=== PATIENT | female | born 1950 | race Caucasian/White ===

== ENCOUNTER → 2017-12-21 | Outpatient (CLI) | payer MEDICARE ==
--- NOTE | 2017-12-21 14:26 | CT ---
EXAMINATION TYPE: CT abdomen pelvis wo con DATE OF EXAM: 12/21/2017 COMPARISON: NONE HISTORY: Intra abd pelvic swelling CT DLP: 2852 mGycm Automated exposure control for dose reduction was used. TECHNIQUE: Helical acquisition of images from the lung bases through the pelvis. FINDINGS: Lack of intravenous contrast could compromise sensitivity of the exam. Exam is limited by p atient body habitus. Increased attenuation in subcutaneous fat especially over the right hemiabdomen could be due to anasa rca or phlegmon, difficult to exclude cellulitis, correlate. LUNG BASES: There is a left pleural effusion and associated atelectasis. AORTA: No significant abnormality is appreciataed. LIVER/GB: No significant abnormality is appreciated. PANCREAS: No significant abnormality is seen. SPLEEN: No significant abnormality is seen. ADRENALS: Low dense left adrenal mass measures approximately 3.5 cm and likely represents adenoma, ri ght adrenal gland is unremarkable.. KIDNEYS: No significant abnormality is seen. REPRODUCTIVE ORGANS: No significant abnormality is seen. URINARY BLADDER: No significant abnormality is seen. BOWEL: No diverticular changes associated with the sigmoid colon, difficult to exclude a mucosal les ion.. FREE AIR: No Free Air is visible. ASCITES: Present adjacent to the liver. Small amount of free fluid in the pelvis. PELVIC ADENOPATHY: None visualized. RETROPERITONEAL ADENOPATHY: No Retroperitoneal Adenopathy visible. OSSEOUS STRUCTURES: Degenerative disc changes in the visualized spine. IMPRESSION: FINDINGS IN THE SUBCUTANEOUS FAT OVER THE ANTERIOR ABDOMINAL WALL IN THE RIGHT LOWER AND LATERAL ABDO MEN DESCRIBED. CORRELATE TO EXCLUDE INFECTION. ASCITES. NONCONTRAST EXAM MAY LIMIT THE EVALUATION. PROBABLE LEFT ADRENAL ADENOMA, LEFT LOWER LOBE ATELECTASIS VERSUS PNEUMONIA AND ASSOCIATED EFFUSION. Additional findings above.
== END | disposition home or self-care (01) ==
LOC: RADCTMAIN 11:20
PROVIDERS: ATTEND Family Medicine
DX: R18.8 Other ascites (principal); E27.8 Other specified disorders of adrenal gland; J44.1 Chronic obstructive pulmonary disease with (acute) exacerbation; I48.2 Chronic atrial fibrillation; D51.9 Vitamin B12 deficiency anemia, unspecified
CPT/HCPCS: 74176

== ENCOUNTER 2018-05-11 14:38 | Inpatient (IN) | payer MEDICARE ==
[2018-05-11] MEDS ORDERED: methylPREDNISolone SOD SUCCI 125 MG/2 ML VIAL IV STA (14:46)
[2018-05-11] MEDS ORDERED: IPRATROPIUM-ALBUTEROL 3 ML NEB INHALATION STA (14:46)
[2018-05-11] MEDS ORDERED: MAGNESIUM SULFATE-D5W PMX 1 GM in DEXTROSE/WATER 1 100ML.BAG IVPB STA (14:46)
[2018-05-11] MEDS ORDERED: FUROSEMIDE 10 MG/ML 4 ML VIAL IV STA (14:46)
[2018-05-11] MEDS ORDERED: SODIUM CHLORIDE 0.9% 1,000 ML IV STA (14:46)
[2018-05-11 15:19] LABS: Anisocytosis Slight; Basophils % (A) 0 %; Eosinophils % (A) 0 %; HCT 33.1 % (34.0-46.0); HGB 9.9 gm/dL (11.4-16.0); Hypochromasia Marked; Lymphocytes # (A) 0.9 k/uL (1.0-4.8); Lymphocytes % (A) 6 %; MCV 86.6 fL (80.0-100.0); Mean Platelet Volume 7.2; Monocytes # (A) 0.7 k/uL (0-1.0); Monocytes % (A) 5 %; Neutrophils # (A) 11.8 k/uL (1.3-7.7); Neutrophils % (A) 86 %; Platelet Count 498 k/uL (150-450); Poikilocytosis Slight; RBC 3.83 m/uL (3.80-5.40); RDW 18.9 % (11.5-15.5); WBC 13.7 k/uL (3.8-10.6)
[2018-05-11 15:25] LABS: Albumin 2.6 g/dL (3.5-5.0); Calcium 8.7 mg/dL (8.4-10.2); Magnesium 1.6 mg/dL (1.6-2.3); Potassium 3.8 mmol/L (3.5-5.1); Total Bilirubin 0.4 mg/dL (0.2-1.3); Total Protein 4.9 g/dL (6.3-8.2)
[2018-05-11 15:31] LABS: D-Dimer 0.57 mg/L FEU (<0.60); INR 1.2 (<1.2); Partial Thromboplastin Time 28.3 sec (22.0-30.0); Prothrombin Time 11.2 sec (9.0-12.0)
[2018-05-11 15:51] LABS: Creatine Kinase MB 1.2 ng/mL (0.0-2.4)
[2018-05-11 15:52] LABS: Troponin I 0.046 ng/mL (0.000-0.034)
--- NOTE | 2018-05-11 16:01 | XR ---
EXAMINATION TYPE: XR chest 1V portable DATE OF EXAM: 05/11/2018 Comparison: 05/11/2018 Clinical History: 67-year-old female with soreness of breath and Pain Findings: Heart mildly enlarged. [id number] left pleural effusion. Mild diffuse interstitial prominence. Possible trace right effusion. Impression: 1. Mild cardiomegaly and interstitial prominence. Correlate for CHF and mild pulmonary vascular conge stion. 2. Retsl-fz-dmaluaen left and trace right pleural effusions with adjacent atelectasis and/or consolid ation.
--- NOTE | 2018-05-11 16:47 | ED ---
SOB HPI - General Chief Complaint: Shortness of Breath Stated Complaint: YARIEL Time Seen by Provider: 05/11/18 14:38 Source: patient, EMS, RN notes reviewed Mode of arrival: EMS Limitations: no limitations - History of Present Illness Initial Comments: This is a 67-year-old female history of CHF COPD and stage III kidney disease who is brought in by EMS because of shortness of breath. She was evaluated today by a visiting nurse who was here to check on her legs she has some chronic wounds she was found to be very dyspneic which apparently is been going on all night and during the morning. No complaints of chest pain fevers chills nausea vomiting sweats. She was given DuoNeb and route with oxygen some improvement she was started on BiPAP which really didn't help her. He currently upon arrival was feeling somewhat improved the. MD Complaint: shortness of breath - Related Data Home Medications Medication Instructions Recorded Confirmed Acetaminophen [Tylenol Extra 1,000 mg PO Q6H PRN 05/11/18 05/11/18 Strength] Albuterol Inhaler [Ventolin Hfa 1 - 2 puff INHALATION RT-Q6H PRN 05/11/18 Inhaler] Albuterol Nebulized [Ventolin 1.25 mg INHALATION RT-DAILY PRN 05/11/18 05/11/18 Nebulized] Aspirin 325 mg PO DAILY 05/11/18 05/11/18 DULoxetine HCL [Cymbalta] 30 mg PO DAILY 05/11/18 05/11/18 Diclofenac Sodium [Voltaren Gel] 2 gram TOPICAL QID 05/11/18 05/11/18 Fidaxomicin [Dificid] 400 mg PO BID 05/11/18 05/11/18 Fluticasone Nasal [place] [Flonase 2 spr EA NOSTRIL DAILY 05/11/18 05/11/18 Nasal [place]] Fluticasone/Salmeterol [Advair 1 inhalation PO RT-BID 05/11/18 05/11/18 250-50 Diskus] Furosemide [Lasix] 40 mg PO BID 05/11/18 05/11/18 Gentamicin 0.1% Cream 1 applic TOPICAL TID 05/11/18 05/11/18 Ibuprofen [Motrin Ib] 400 mg PO Q6H PRN 05/11/18 05/11/18 Ipratropium Nebulized [Atrovent 0.5 mg INHALATION RT-QID 05/11/18 05/11/18 Nebulized] Metolazone [Zaroxolyn] 5 mg PO DAILY 05/11/18 05/11/18 Montelukast [Singulair] 10 mg PO DAILY 05/11/18 05/11/18 Ondansetron [Zofran] 4 mg PO Q8HR PRN 05/11/18 05/11/18 Spironolactone [Aldactone] 50 mg PO DAILY@1200 05/11/18 05/11/18 Sucralfate [Carafate] 1 gm PO QID 05/11/18 05/11/18 Umeclidinium Brm/Vilanterol Tr 1 puff INHALATION DAILY 05/11/18 05/11/18 [Anoro Ellipta 62.5-25 Mcg INH] guaiFENesin [Mucinex] 1,200 mg PO Q12HR 05/11/18 05/11/18 metFORMIN HCL [Glucophage] 500 mg PO DAILY 05/11/18 05/11/18 Allergies Allergy/AdvReac Type Severity Reaction Status Date / Time acetaminophen [From [place]] Allergy Unknown Verified 05/11/18 14:54 banana Allergy Unknown Verified 05/11/18 14:54 hydrocodone Allergy Unknown Verified 05/11/18 14:54 levofloxacin Allergy Unknown Verified 05/11/18 14:54 Penicillins Allergy Unknown Verified 05/11/18 14:54 tomato Allergy Unknown Verified 05/11/18 14:54 Review of Systems ROS Statement: Those systems with pertinent positive or pertinent negative responses have been documented in the HPI. ROS Other: All systems not noted in ROS Statement are negative. Past Medical History Past Medical History: Coronary Artery Disease (CAD), COPD, GERD/Reflux, Respiratory Disorder Additional Past Medical History / Comment(s): pressure ulcer. History of Any Multi-Drug Resistant Organisms: C-DIFF Date of last positivie culture/infection: 05/06/18 Past Surgical History: Appendectomy, Orthopedic Surgery Additional Past Surgical History / Comment(s): finger surgery Past Psychological History: Depression Smoking Status: Former smoker Past Alcohol Use History: None Reported Past Drug Use History: None Reported General Exam - General Exam Comments Initial Comments: This a well-developed well-nourished awake alert oriented 3 female she is on BiPAP currently. Limitations: no limitations General appearance: alert, in distress Head exam: Present: atraumatic, normocephalic, normal inspection Eye exam: Present: normal appearance, PERRL, EOMI. Absent: scleral icterus, conjunctival injection, periorbital swelling ENT exam: Present: normal exam, mucous membranes moist Neck exam: Present: normal inspection. Absent: tenderness, meningismus, lymphadenopathy Respiratory exam: Present: respiratory distress, wheezes, rales, accessory muscle use, decreased breath sounds. Absent: rhonchi, stridor Cardiovascular Exam: Present: tachycardia, irregular rhythm, normal heart sounds. Absent: systolic murmur, diastolic murmur, rubs, gallop, clicks GI/Abdominal exam: Present: soft, normal bowel sounds. Absent: distended, tenderness, guarding, rebound, rigid Extremities exam: Present: full ROM, normal capillary refill, other (Dressing applied with currently no evidence of pitting edema.). Absent: tenderness, pedal edema, joint swelling, calf tenderness Back exam: Present: normal inspection Neurological exam: Present: alert, oriented X3, CN II-XII intact Psychiatric exam: Present: normal affect, normal mood Skin exam: Present: warm, dry, other (Stasis dermatitis lower extremities was a very states healing bilateral decubitus ulcerations to both buttock.). Absent: rash Course Vital Signs 05/11/18 05/11/18 05/11/18 14:41 15:03 15:10 Temperature 97.9 F Pulse Rate 90 146 H 135 H Respiratory 28 H 16 Rate Blood Pressure 131/67 O2 Sat by Pulse 94 L 95 Oximetry 05/11/18 15:13 Temperature Pulse Rate 122 H Respiratory Rate Blood Pressure O2 Sat by Pulse Oximetry - Reevaluation(s) Reevaluation #1: 05/11/18 16:50 Reevaluation patient reveals she is feeling improved with the BiPAP I did discuss findings with patient's family and with the visiting nurse who was present. Medical Decision Making - Medical Decision Making Did discuss findings with the patient and family member and the visiting nurse was present patient does have rapid atrial fibrillation the heart rate is variable she also does demonstrate some evidence of decubitus ulceration on the buttock bilaterally. Chronic changes of the legs. CHF and renal insufficiency. Patient be admitted for evaluation by nephrology and cardiology. - Lab Data Result diagrams: 05/11/18 15:00 05/11/18 15:00 Lab Results 05/11/18 05/11/18 05/11/18 Range/Units 15:00 15:00 15:00 WBC 13.7 H (3.8-10.6) k/uL RBC 3.83 (3.80-5.40) m/uL Hgb 9.9 L (11.4-16.0) gm/dL Hct 33.1 L (34.0-46.0) % MCV 86.6 (80.0-100.0) fL MCH 26.0 (25.0-35.0) pg MCHC 30.0 L (31.0-37.0) g/dL RDW 18.9 H (11.5-15.5) % Plt Count 498 H (150-450) k/uL Neutrophils % 86 % Lymphocytes % 6 % Monocytes % 5 % Eosinophils % 0 % Basophils % 0 % Neutrophils # 11.8 H (1.3-7.7) k/uL Lymphocytes # 0.9 L (1.0-4.8) k/uL Monocytes # 0.7 (0-1.0) k/uL Eosinophils # 0.0 (0-0.7) k/uL Basophils # 0.0 (0-0.2) k/uL Hypochromasia Marked Poikilocytosis Slight Anisocytosis Slight PT (9.0-12.0) sec INR (<1.2) APTT (22.0-30.0) sec D-Dimer (<0.60) mg/L FEU Sodium 136 L (137-145) mmol/L Potassium 3.8 (3.5-5.1) mmol/L Chloride 90 L (98-107) mmol/L Carbon Dioxide 40 H* (22-30) mmol/L Anion Gap 6 mmol/L BUN 38 H (7-17) mg/dL Creatinine 1.70 H (0.52-1.04) mg/dL Est GFR (CKD-EPI)AfAm 36 (>60 ml/min/1.73 sqM) Est GFR (CKD-EPI)NonAf 31 (>60 ml/min/1.73 sqM) Glucose 114 H (74-99) mg/dL Plasma Lactic Acid Terence (0.7-2.0) mmol/L Calcium 8.7 (8.4-10.2) mg/dL Magnesium 1.6 (1.6-2.3) mg/dL Total Bilirubin 0.4 (0.2-1.3) mg/dL AST 16 (14-36) U/L ALT 30 (9-52) U/L Alkaline Phosphatase 128 H (38-126) U/L Total Creatine Kinase 40 (30-135) U/L CK-MB (CK-2) 1.2 (0.0-2.4) ng/mL CK-MB (CK-2) Rel Index 3.0 Troponin I 0.046 H* (0.000-0.034) ng/mL NT-Pro-B Natriuret Pep pg/mL Total Protein 4.9 L (6.3-8.2) g/dL Albumin 2.6 L (3.5-5.0) g/dL 05/11/18 05/11/18 05/11/18 Range/Units 15:00 15:00 15:00 WBC (3.8-10.6) k/uL RBC (3.80-5.40) m/uL Hgb (11.4-16.0) gm/dL Hct (34.0-46.0) % MCV (80.0-100.0) fL MCH (25.0-35.0) pg MCHC (31.0-37.0) g/dL RDW (11.5-15.5) % Plt Count (150-450) k/uL Neutrophils % % Lymphocytes % % Monocytes % % Eosinophils % % Basophils % % Neutrophils # (1.3-7.7) k/uL Lymphocytes # (1.0-4.8) k/uL Monocytes # (0-1.0) k/uL Eosinophils # (0-0.7) k/uL Basophils # (0-0.2) k/uL Hypochromasia Poikilocytosis Anisocytosis PT 11.2 (9.0-12.0) sec INR 1.2 H (<1.2) APTT 28.3 (22.0-30.0) sec D-Dimer 0.57 (<0.60) mg/L FEU Sodium (137-145) mmol/L Potassium (3.5-5.1) mmol/L Chloride (98-107) mmol/L Carbon Dioxide (22-30) mmol/L Anion Gap mmol/L BUN (7-17) mg/dL Creatinine (0.52-1.04) mg/dL Est GFR (CKD-EPI)AfAm (>60 ml/min/1.73 sqM) Est GFR (CKD-EPI)NonAf (>60 ml/min/1.73 sqM) Glucose (74-99) mg/dL Plasma Lactic Acid Terence 1.9 (0.7-2.0) mmol/L Calcium (8.4-10.2) mg/dL Magnesium (1.6-2.3) mg/dL Total Bilirubin (0.2-1.3) mg/dL AST (14-36) U/L ALT (9-52) U/L Alkaline Phosphatase (38-126) U/L Total Creatine Kinase (30-135) U/L CK-MB (CK-2) (0.0-2.4) ng/mL CK-MB (CK-2) Rel Index Troponin I (0.000-0.034) ng/mL NT-Pro-B Natriuret Pep 5490 pg/mL Total Protein (6.3-8.2) g/dL Albumin (3.5-5.0) g/dL - EKG Data -: EKG Interpreted by Me (Atrial fibrillation with a rapid ventricular response rate of 161 QRS 72 QT) - Radiology Data Radiology results: report reviewed (I did review the imaging and report or is evidence of congestive heart failure.), image reviewed Critical Care Time Critical Care Time: Yes Critical Care Time: 39 minutes of critical care time which includes monitoring EMS run and discussed with paramedics history physical labs x-rays several reevaluation the patient response to therapy discussion with family and friends. Discussed with the beta physician admission orders documentation the above. Disposition Clinical Impression: Congestive heart failure, Rapid atrial fibrillation, Chronic renal insufficiency, stage III (moderate), COPD (chronic obstructive pulmonary disease ), Adult respiratory distress syndrome Disposition: ADMITTED IP TO THIS [facility] Condition: Serious Referrals: Alec Germain MD [Primary Care Provider] - 1-2 days
[2018-05-11] MEDS ORDERED: IBUPROFEN 400 MG TAB PO PRN (16:58)
[2018-05-11] MEDS ORDERED: ONDANSETRON 4 MG TAB PO PRN (16:58)
[2018-05-11] MEDS ORDERED: ACETAMINOPHEN TAB 500 MG TAB PO PRN (16:58)
[2018-05-11] MEDS ORDERED: DILTIAZEM 50 MG in SODIUM CHLORIDE 0.9% 40 ML IV SCH (17:00)
[2018-05-11] MEDS ORDERED: HEPARIN SODIUM,PORCINE 5,000 UNIT/ML 1 ML VIAL IV ONE (17:01)
[2018-05-11] MEDS ORDERED: MIDAZOLAM 1 MG/ML 5 ML VIAL IV STA (17:17)
[2018-05-11] MEDS ORDERED: PROPOFOL 1,000 MG in EMPTY BAG 1 BAG IV ONE (17:17)
[2018-05-11] MEDS ORDERED: fentaNYL (PF) 50 MCG/ML 2 ML AMP IV STA (17:20)
[2018-05-11] MEDS: HEPARIN SOD,PORK IN 0.45% NACL 25,000 UNIT in 0.45% NACL 1 500ML.BAG IV SCH (17:22)
--- NOTE | 2018-05-11 17:36 | ED ---
Medical Decision Making - Medical Decision Making The patient continues to struggle with respiratory effort in spite of aggressive treatment and BiPAP. Patient will require intubation. I did discuss this with Dr. Myers also with the family members are present. Patient also does understand. The patient's blood pressure and heart rate did improve after intubation. She'll be admitted ICU. - Lab Data Result diagrams: 05/11/18 15:00 05/11/18 15:00 Lab Results 05/11/18 05/11/18 05/11/18 Range/Units 15:00 15:00 15:00 WBC 13.7 H (3.8-10.6) k/uL RBC 3.83 (3.80-5.40) m/uL Hgb 9.9 L (11.4-16.0) gm/dL Hct 33.1 L (34.0-46.0) % MCV 86.6 (80.0-100.0) fL MCH 26.0 (25.0-35.0) pg MCHC 30.0 L (31.0-37.0) g/dL RDW 18.9 H (11.5-15.5) % Plt Count 498 H (150-450) k/uL Neutrophils % 86 % Lymphocytes % 6 % Monocytes % 5 % Eosinophils % 0 % Basophils % 0 % Neutrophils # 11.8 H (1.3-7.7) k/uL Lymphocytes # 0.9 L (1.0-4.8) k/uL Monocytes # 0.7 (0-1.0) k/uL Eosinophils # 0.0 (0-0.7) k/uL Basophils # 0.0 (0-0.2) k/uL Hypochromasia Marked Poikilocytosis Slight Anisocytosis Slight PT (9.0-12.0) sec INR (<1.2) APTT (22.0-30.0) sec D-Dimer (<0.60) mg/L FEU Sodium 136 L (137-145) mmol/L Potassium 3.8 (3.5-5.1) mmol/L Chloride 90 L (98-107) mmol/L Carbon Dioxide 40 H* (22-30) mmol/L Anion Gap 6 mmol/L BUN 38 H (7-17) mg/dL Creatinine 1.70 H (0.52-1.04) mg/dL Est GFR (CKD-EPI)AfAm 36 (>60 ml/min/1.73 sqM) Est GFR (CKD-EPI)NonAf 31 (>60 ml/min/1.73 sqM) Glucose 114 H (74-99) mg/dL Plasma Lactic Acid Terence (0.7-2.0) mmol/L Calcium 8.7 (8.4-10.2) mg/dL Magnesium 1.6 (1.6-2.3) mg/dL Total Bilirubin 0.4 (0.2-1.3) mg/dL AST 16 (14-36) U/L ALT 30 (9-52) U/L Alkaline Phosphatase 128 H (38-126) U/L Total Creatine Kinase 40 (30-135) U/L CK-MB (CK-2) 1.2 (0.0-2.4) ng/mL CK-MB (CK-2) Rel Index 3.0 Troponin I 0.046 H* (0.000-0.034) ng/mL NT-Pro-B Natriuret Pep pg/mL Total Protein 4.9 L (6.3-8.2) g/dL Albumin 2.6 L (3.5-5.0) g/dL 05/11/18 05/11/18 05/11/18 Range/Units 15:00 15:00 15:00 WBC (3.8-10.6) k/uL RBC (3.80-5.40) m/uL Hgb (11.4-16.0) gm/dL Hct (34.0-46.0) % MCV (80.0-100.0) fL MCH (25.0-35.0) pg MCHC (31.0-37.0) g/dL RDW (11.5-15.5) % Plt Count (150-450) k/uL Neutrophils % % Lymphocytes % % Monocytes % % Eosinophils % % Basophils % % Neutrophils # (1.3-7.7) k/uL Lymphocytes # (1.0-4.8) k/uL Monocytes # (0-1.0) k/uL Eosinophils # (0-0.7) k/uL Basophils # (0-0.2) k/uL Hypochromasia Poikilocytosis Anisocytosis PT 11.2 (9.0-12.0) sec INR 1.2 H (<1.2) APTT 28.3 (22.0-30.0) sec D-Dimer 0.57 (<0.60) mg/L FEU Sodium (137-145) mmol/L Potassium (3.5-5.1) mmol/L Chloride (98-107) mmol/L Carbon Dioxide (22-30) mmol/L Anion Gap mmol/L BUN (7-17) mg/dL Creatinine (0.52-1.04) mg/dL Est GFR (CKD-EPI)AfAm (>60 ml/min/1.73 sqM) Est GFR (CKD-EPI)NonAf (>60 ml/min/1.73 sqM) Glucose (74-99) mg/dL Plasma Lactic Acid Terence 1.9 (0.7-2.0) mmol/L Calcium (8.4-10.2) mg/dL Magnesium (1.6-2.3) mg/dL Total Bilirubin (0.2-1.3) mg/dL AST (14-36) U/L ALT (9-52) U/L Alkaline Phosphatase (38-126) U/L Total Creatine Kinase (30-135) U/L CK-MB (CK-2) (0.0-2.4) ng/mL CK-MB (CK-2) Rel Index Troponin I (0.000-0.034) ng/mL NT-Pro-B Natriuret Pep 5490 pg/mL Total Protein (6.3-8.2) g/dL Albumin (3.5-5.0) g/dL - Radiology Data Radiology results: image reviewed (Review the imaging after the intubation shows the ET tube to be above the german in good position the OG tube is in the stomach.) Critical Care Time Critical Care Time: Yes Critical Care Time: Additional 23 minutes of critical care time not including the procedural sedation and intubation. Disposition Clinical Impression: Congestive heart failure, Rapid atrial fibrillation, Chronic renal insufficiency, stage III (moderate), COPD (chronic obstructive pulmonary disease ), Adult respiratory distress syndrome, Acute respiratory failure Disposition: ADMITTED IP TO THIS [facility] Condition: Serious Procedures - Intubation Time Out Performed: Yes Sedative: Propofol Mg Given: 100 Laryngoscope: Garg Size: 3 Assist Device Used: Bougie ET Tube Size: 7.5 ET Tube Uncuffed: No (Cuffed) Tube Secured Depth (cm): 23 Tube Placement Confirmation: visualized tube passing through cords, equal breath sounds bilaterally, no breath sounds over epigastrium, confirmation by capnometry Patient Tolerated Procedure: well Intubation Complications: none - Procedural Sedation Procedural Sedation Start Time: 17:49 Procedural Sedation Stop Time: 18:11 Indications: other ASA Class: III Mallampati Airway Score: 2 Preparation: radiographer cardiac catheterization applied, pulse oximeter, capnometry used, supplemental O2 applied, reversal agents at bedside, suction/airway equipment at bedside, IV secured Fentanyl: IV Fentanyl Dose: 50 Midazolam: IV Midazolam Dose: 5 IV Propofol Dose (mgs): 100 Complications: none (Procedural sedation used for oral tracheal intubation.)
[2018-05-11] MEDS: SODIUM CHLORIDE 0.9% 1,000 ML IV SCH (17:48)
[2018-05-11] MEDS ORDERED: SUCRALFATE 1 GM TAB PO SCH (18:00)
[2018-05-11] MEDS ORDERED: NITROGLYCERIN OINT 1 INCH/GM PACKET TOPICAL SCH (18:00)
[2018-05-11] MEDS ORDERED: DICLOFENAC SODIUM GEL 100 GM TUBE TOPICAL SCH (18:00)
--- NOTE | 2018-05-11 18:26 | XR ---
EXAMINATION: XR chest 1V portable DATE AND TIME: 05/11/2018 6:06 PM ORDERING PROVIDER: Steve Roberts CLINICAL INDICATION: pain TECHNIQUE: AP portable supine, rotated RPO COMPARISON: 05/11/2018 at 3:37 PM DESCRIPTION: Since the prior study patient has been intubated, ET tube tip is superimposed over the m id trachea at the level of the clavicular heads. Also new since the previous study is an NG tube placement, which can be seen coursing over the expect ed course of the thoracic esophagus and its tip is not visible, caudal to the inferior margin of the film. There is marked obscuration of the pulmonary vasculature by a fine reticular pattern of increased den sity consistent with advanced interstitial phase pulmonary edema, presumably cardiogenic etiology giv en the marked enlargement of the cardiac silhouette. Also, the left hemidiaphragm is silhouetted consistent with airlessness throughout the left lower lob e, with evidence of prominent left pleural effusion also noted. IMPRESSION: POSTINTUBATION CHEST X-RAY WITH FINDINGS DISCUSSED.
[2018-05-11 18:48] LABS: ABG Base Excess 15.6 mmol/L; ABG PH 7.36 (7.35-7.45); ABG PO2 395 mmHg (83-108); ABG TCO2 43 mmol/L (19-24)
[2018-05-11] MEDS ORDERED: NALOXONE 0.4 MG/ML 1 ML VIAL IV PRN (18:58)
[2018-05-11] MEDS: IPRATROPIUM-ALBUTEROL 3 ML NEB INHALATION SCH ×2 (19:11→23:27)
--- NOTE | 2018-05-11 19:39 | P.HPIM ---
History of Present Illness Chief Complaint: Shortness of breath CC 67-year-old female multiple medical problems including CKD stage III, type 2 diabetes mellitus, diastolic heart failure, COPD with chronic CO2 retention and 3 L home oxygen dependent and nocturnal BiPAP dependent at home, chronic atrial fibrillation on Eliquis was brought into emergency department due to respiratory distress. Patient is currently intubated and sedated and history was provided from her daughter Katherine at bedside. Per daughter patient has been having worsening shortness of breath for the last 2-3 weeks. There was some minimal dry cough but that was at her usual baseline. No fever or chills. She was having increased swelling in her legs and her abdomen and her diuretics were recently adjusted and that swelling has been improving since. There was no chest pain reported. Also do shortness of breath was worse with laying down. Shortness of breath was accompanied by increasing lethargy and loss of appetite. Patient Lasix was changed to 40 mg twice a day and initially patient would have an excellent urine output with DrChelsie with this but over the last few days she would not have much of the urine output with the Lasix. On the last 2-3 days patient became more lethargic and more short of breath and that distress was worsening and today finally decision was made to bring patient to emergency department. Initial workup showed chest x-ray with some congestive changes significantly elevated proBNP and slight elevation in troponin. Patient was initially given Solu-Medrol and Lasix but she developed A. fib with RVR with heart rate 160s upon which her respiratory status worsened and she had to be intubated in the emergency department. She was subsequently started on Cardizem drip and IV Lasix and heparin drip. Follow-up chest x-ray after intubation showed worsening pulmonary edema and small bilateral pleural effusions. 2 months prior to this admission patient was admitted at [facility] for congestive heart failure and COPD exacerbation and was subsequently discharged home. Patient had previous admissions to intensive care unit for respiratory problems but was never intubated. Last echocardiogram was from a few weeks ago and per daughter showed ejection fraction of 55% and some diastolic dysfunction he has no known history of coronary artery disease or cardiac interventions as per daughter's knowledge. Other recent and pertinent medical problems include loose and watery bowel movements for the last week and a half for which patient underwent trial of treatment for C. diff without any improvements and is subsequently started on Imodium but without improvement. Dr. describes bowel movements as brown sometimes loose sometimes watery couple times a day for the last 2 weeks. No mucus or blood or urgency or any abdominal pain nausea or vomiting described. Patient was not on any recent antibiotics as well otherwise to on that her doctor prescribed for C. diff. She is on metformin tho and that was just stop few days ago. Review of Systems ROS unobtainable: due to endotracheal tube, due to mental status Past Medical History Past Medical History: Coronary Artery Disease (CAD), COPD, GERD/Reflux, Respiratory Disorder Additional Past Medical History / Comment(s): pressure ulcer. History of Any Multi-Drug Resistant Organisms: C-DIFF Date of last positivie culture/infection: 05/06/18 Past Surgical History: Appendectomy, Orthopedic Surgery Additional Past Surgical History / Comment(s): finger surgery Past Psychological History: Depression Smoking Status: Former smoker Past Alcohol Use History: None Reported Past Drug Use History: None Reported Medications and Allergies Home Medications Medication Instructions Recorded Confirmed Type Acetaminophen [Tylenol Extra 1,000 mg PO Q6H PRN 05/11/18 05/11/18 History Strength] Albuterol Inhaler [Ventolin Hfa 1 - 2 puff INHALATION RT-Q6H PRN 05/11/18 History Inhaler] Albuterol Nebulized [Ventolin 1.25 mg INHALATION RT-DAILY PRN 05/11/18 05/11/18 History Nebulized] Aspirin 325 mg PO DAILY 05/11/18 05/11/18 History DULoxetine HCL [Cymbalta] 30 mg PO DAILY 05/11/18 05/11/18 History Diclofenac Sodium [Voltaren Gel] 2 gram TOPICAL QID 05/11/18 05/11/18 History Fidaxomicin [Dificid] 400 mg PO BID 05/11/18 05/11/18 History Fluticasone Nasal [place] [Flonase 2 spr EA NOSTRIL DAILY 05/11/18 05/11/18 History Nasal [place]] Fluticasone/Salmeterol [Advair 1 inhalation PO RT-BID 05/11/18 05/11/18 History 250-50 Diskus] Furosemide [Lasix] 40 mg PO BID 05/11/18 05/11/18 History Gentamicin 0.1% Cream 1 applic TOPICAL TID 05/11/18 05/11/18 History Ibuprofen [Motrin Ib] 400 mg PO Q6H PRN 05/11/18 05/11/18 History Ipratropium Nebulized [Atrovent 0.5 mg INHALATION RT-QID 05/11/18 05/11/18 History Nebulized] Metolazone [Zaroxolyn] 5 mg PO DAILY 05/11/18 05/11/18 History Montelukast [Singulair] 10 mg PO DAILY 05/11/18 05/11/18 History Ondansetron [Zofran] 4 mg PO Q8HR PRN 05/11/18 05/11/18 History Spironolactone [Aldactone] 50 mg PO DAILY@1200 05/11/18 05/11/18 History Sucralfate [Carafate] 1 gm PO QID 05/11/18 05/11/18 History Umeclidinium Brm/Vilanterol Tr 1 puff INHALATION DAILY 05/11/18 05/11/18 History [Anoro Ellipta 62.5-25 Mcg INH] guaiFENesin [Mucinex] 1,200 mg PO Q12HR 05/11/18 05/11/18 History metFORMIN HCL [Glucophage] 500 mg PO DAILY 05/11/18 05/11/18 History Allergies Allergy/AdvReac Type Severity Reaction Status Date / Time acetaminophen [From [place]] Allergy Unknown Verified 05/11/18 14:54 banana Allergy Unknown Verified 05/11/18 14:54 hydrocodone Allergy Unknown Verified 05/11/18 14:54 levofloxacin Allergy Unknown Verified 05/11/18 14:54 Penicillins Allergy Unknown Verified 05/11/18 14:54 tomato Allergy Unknown Verified 05/11/18 14:54 Physical Exam Vitals: Vital Signs Temp Pulse Resp BP Pulse Ox 05/11/18 18:51 139 H 14 124/88 99 05/11/18 18:05 137 H 14 125/85 99 05/11/18 17:00 131 H 20 110/56 94 L 05/11/18 16:00 132 H 18 123/53 93 L 05/11/18 15:13 122 H 05/11/18 15:10 135 H 16 131/67 95 05/11/18 15:03 146 H 05/11/18 14:41 97.9 F 90 28 H 94 L Intake and Output 05/11/18 05/11/18 05/11/18 06:59 14:59 22:59 Output Total 100 Balance -100 Output: Urine 100 Uretheral (Hernandez) 100 Other: Weight 102.058 kg Gen.: Patient is intubated and sedated and unresponsive to light touch or nociceptive stimuli Head and neck: No facial asymmetry, pupils are round reactive to light bilaterally, eyes are in midline, sclerae are anicteric, she has very short thick neck and any Vanos pulsations cannot be appreciated Cardiovascular: Tachycardic irregularly irregular S1-S2 Respiratory: Breath sounds are diminished throughout and no wheezing or rhonchi appreciated Abdomen: Obese slightly distended skin with some swelling and peau d orange appearance in dependent areas with some erythema but no warmth or drainage Extremities: Trace pedal edema, there are some scabs and small wounds without any erythema or drainage Musculoskeletal: No clubbing or warm joints Neuro: No facial asymmetry. Pupils are round and reactive to midline DTRs are diminished in patellar bilaterally there is no clonus Results CBC & Chem 7: 05/11/18 15:00 05/11/18 15:00 Labs: Abnormal Lab Results - Last 24 Hours (Table) 05/11/18 05/11/18 05/11/18 Range/Units 15:00 15:00 15:00 WBC 13.7 H (3.8-10.6) k/uL Hgb 9.9 L (11.4-16.0) gm/dL Hct 33.1 L (34.0-46.0) % MCHC 30.0 L (31.0-37.0) g/dL RDW 18.9 H (11.5-15.5) % Plt Count 498 H (150-450) k/uL Neutrophils # 11.8 H (1.3-7.7) k/uL Lymphocytes # 0.9 L (1.0-4.8) k/uL INR (<1.2) Sodium 136 L (137-145) mmol/L Chloride 90 L (98-107) mmol/L Carbon Dioxide 40 H* (22-30) mmol/L BUN 38 H (7-17) mg/dL Creatinine 1.70 H (0.52-1.04) mg/dL Glucose 114 H (74-99) mg/dL Alkaline Phosphatase 128 H (38-126) U/L Troponin I 0.046 H* (0.000-0.034) ng/mL Total Protein 4.9 L (6.3-8.2) g/dL Albumin 2.6 L (3.5-5.0) g/dL 05/11/18 Range/Units 15:00 WBC (3.8-10.6) k/uL Hgb (11.4-16.0) gm/dL Hct (34.0-46.0) % MCHC (31.0-37.0) g/dL RDW (11.5-15.5) % Plt Count (150-450) k/uL Neutrophils # (1.3-7.7) k/uL Lymphocytes # (1.0-4.8) k/uL INR 1.2 H (<1.2) Sodium (137-145) mmol/L Chloride (98-107) mmol/L Carbon Dioxide (22-30) mmol/L BUN (7-17) mg/dL Creatinine (0.52-1.04) mg/dL Glucose (74-99) mg/dL Alkaline Phosphatase (38-126) U/L Troponin I (0.000-0.034) ng/mL Total Protein (6.3-8.2) g/dL Albumin (3.5-5.0) g/dL Chest x-ray: report reviewed, image reviewed Thrombosis Risk Factor Assmnt - DVT/VTE Prophylaxis DVT/VTE Prophylaxis: Pharmacologic Prophylaxis ordered Assessment and Plan Plan: 1. Acute on chronic hypoxic respiratory failure, clinically due to pulmonary edema due to combination of acute diastolic CHF exacerbation and fluid redistribution in the background of chronic renal insufficiency with A. fib with RVR with obstructive lung disease, obesity hypoventilation and chronic hypercarbic respiratory failure; status post endotracheal intubation Admitted to ICU with ventilatory bundle and pulmonary consult Evaluate for etiology of cardiac decompensation with ischemic workup and also control of A. fib with RVR Cardiology and nephrology consulted Continue diuresis for now Obtain stat ABG to evaluate pH given the very elevated bicarb trend troponin septic work up 2. A. fib with RVR Acute on chronic Last known EF 55% Cardizem drip started in the emergency department with better with heart rate improving Cardiology consulted Patient has been on Eliquis currently started on heparin drip emergency department we will keep with this for now Cardiology consulted Check TSH 3. Chronic hypercarbic respiratory failure BiPAP dependent due to COPD and obesity hypoventilation syndrome with history of smoking ABG currently pending Vent settings will be adjusted based on the results 4. CK be stage III per history Unknown creatinine baseline Nephrology consulted to assist with this problem and diuresis We'll obtain old records from the previous hospitalization Patient is a full code Current surrogate decision maker is her daughter hope Expected 2 or more midnights stay 90 minutes total time spent on this admission intubating the family examined the patient and reviewing the chart and coordinating the care Time with Patient: Greater than 30
[2018-05-11] MEDS ORDERED: NON-FORMULARY DRUG (Fluticasone/Salmeterol [Advair 250-50 Diskus] 1 INHALATION) PO SCH (20:00)
[2018-05-11] MEDS: PANTOPRAZOLE 40 MG/10 ML VIAL IV SCH (20:20)
[2018-05-11] MEDS: INSULIN ASPART 100 UNIT/ML 1 ML 10 ML VIAL SQ SCH ×2 (20:21→20:55)
[2018-05-11 20:33] LABS: Amorphous Sediment,Urine Occasional /hpf; Appearance,Urine Cloudy (Clear); Bilirubin,Urine Negative (Negative); Blood,Urine Negative (Negative); Color,Urine Yellow; Glucose,Urine (UA) Negative (Negative); Hyaline Casts,Urine 102 /lpf (0-2); Ketones,Urine Negative (Negative); Leukocyte Esterase,Urine Trace (Negative); Mucus,Urine Rare /hpf; Nitrite,Urine Negative (Negative); Protein,Urine 1+ (Negative); RBC,Urine 4 /hpf (0-5); Specific Gravity,Urine 1.015 (1.001-1.035); Squamous Epithelial Cell,Urine 4 /hpf (0-4); Urobilinogen,Urine <2.0 mg/dL (<2.0); WBC,Urine 1 /hpf (0-5)
[2018-05-11 20:41] LABS: Glucose,Whole Blood 99 mg/dL (75-99)
[2018-05-11] MEDS ORDERED: guaiFENesin 600 MG TABLET.ER PO SCH (21:00)
[2018-05-11] MEDS ORDERED: FUROSEMIDE 20 MG TAB PO SCH (21:00)
[2018-05-11 21:01] LABS: ABG PCO2 73 mmHg (35-45)
[2018-05-11 21:02] LABS: ABG HCO3 41 mmol/L (21-25)
[2018-05-11] MEDS ORDERED: METOPROLOL TARTRATE 25 MG TAB PO SCH (22:00)
[2018-05-11] MEDS: GENTAMICIN 0.1% CREAM 15 GM TUBE TOPICAL SCH (23:04)
[2018-05-11] MEDS: FUROSEMIDE 10 MG/ML 4 ML VIAL IV SCH (23:11)
[2018-05-11 23:57] LABS: Amorphous Sediment,Urine Rare /hpf; Appearance,Urine Cloudy (Clear); Bacteria,Urine Rare /hpf; Bilirubin,Urine Negative (Negative); Blood,Urine Negative (Negative); Color,Urine Yellow; Glucose,Urine (UA) Negative (Negative); Hyaline Casts,Urine 49 /lpf (0-2); Ketones,Urine Negative (Negative); Leukocyte Esterase,Urine Large (Negative); Mucus,Urine Rare /hpf; Nitrite,Urine Negative (Negative); Protein,Urine Negative (Negative); RBC,Urine 2 /hpf (0-5); Specific Gravity,Urine 1.012 (1.001-1.035); Squamous Epithelial Cell,Urine <1 /hpf (0-4); Urobilinogen,Urine <2.0 mg/dL (<2.0); WBC,Urine 33 /hpf (0-5)
[2018-05-12 00:27] LABS: Glucose,Whole Blood 124 mg/dL (75-99)
[2018-05-12] MEDS: PROPOFOL 1,000 MG in EMPTY BAG 1 BAG IV SCH ×5 (00:35→23:34)
[2018-05-12] MEDS: DILTIAZEM 50 MG in SODIUM CHLORIDE 0.9% 40 ML IV SCH ×2 (02:36→11:00)
[2018-05-12] MEDS ORDERED: NOREPINEPHRINE 4 MG in DEXTROSE 5% IN WATER 250 ML IV SCH ×2 (03:15)
[2018-05-12] MEDS: IPRATROPIUM-ALBUTEROL 3 ML NEB INHALATION SCH ×6 (03:15→23:16)
[2018-05-12 03:50] LABS: Anisocytosis Slight; Basophils % (A) 0 %; Eosinophils % (A) 0 %; HCT 27.8 % (34.0-46.0); Hypochromasia Marked; Lymphocytes # (A) 0.5 k/uL (1.0-4.8); Lymphocytes % (A) 5 %; MCH 25.9 pg (25.0-35.0); MCHC 30.2 g/dL (31.0-37.0); MCV 85.9 fL (80.0-100.0); Mean Platelet Volume 7.5; Monocytes # (A) 0.2 k/uL (0-1.0); Monocytes % (A) 2 %; Neutrophils # (A) 9.4 k/uL (1.3-7.7); Neutrophils % (A) 93 %; Platelet Count 407 k/uL (150-450); RBC 3.24 m/uL (3.80-5.40); RDW 18.8 % (11.5-15.5); WBC 10.1 k/uL (3.8-10.6)
[2018-05-12 04:02] LABS: HGB 8.4 gm/dL (11.4-16.0)
[2018-05-12 04:03] LABS: Calcium 8.1 mg/dL (8.4-10.2); Magnesium 1.8 mg/dL (1.6-2.3); Phosphorus 5.9 mg/dL (2.5-4.5); Potassium 3.8 mmol/L (3.5-5.1)
[2018-05-12 06:10] LABS: Glucose,Whole Blood 152 mg/dL (75-99)
[2018-05-12] MEDS: INSULIN ASPART 100 UNIT/ML 1 ML 10 ML VIAL SQ SCH ×4 (06:10→21:44)
[2018-05-12] MEDS ORDERED: Potassium Replacement Protocol 1 EACH MISC MISCELLANE PRN (06:12)
[2018-05-12] MEDS ORDERED: Magnesium Replacement Protocol 1 EACH MISC MISCELLANE PRN (06:12)
[2018-05-12] MEDS: MAGNESIUM SULFATE-D5W PMX 1 GM in DEXTROSE/WATER 1 100ML.BAG IVPB SCH ×2 (06:57→12:58)
[2018-05-12] MEDS ORDERED: POTASSIUM BICARBONATE/CIT AC 20 MEQ TABLET.EFF NG-TUBE SCH (07:00)
[2018-05-12] MEDS ORDERED: metFORMIN 500 MG TAB PO SCH (07:30)
--- NOTE | 2018-05-12 07:54 | XR ---
EXAMINATION TYPE: XR chest 1V portable DATE OF EXAM: 05/12/2018 CLINICAL HISTORY: Difficulty breathing progress study. TECHNIQUE: Single AP portable upright view of the chest is obtained. COMPARISON: Chest x-rays from one day earlier FINDINGS: There is stable appearance of of endotracheal and orogastric tubes. There is persistent cardiomegaly with tiny right pleural effusion and small to moderate-sized left pl eural effusion. There is background of chronic emphysematous change with parenchymal scarring. Interv al improvement in central vascular congestion. There is no new suspicious focal airspace opacity or p neumothorax seen bilaterally. Degenerative change right glenohumeral joint is redemonstrated. IMPRESSION: Chronic parenchymal change and cardiomegaly with small to moderate-sized left pleural eff usion all redemonstrated without significant interval change. Interval improvement in central vascula r congestion and interstitial edema noted.
[2018-05-12] MEDS ORDERED: METOLAZONE 5 MG TAB PO SCH (09:00)
[2018-05-12] MEDS ORDERED: DULoxetine HCL 30 MG CAPSULE.DR PO SCH (09:00)
[2018-05-12] MEDS ORDERED: FLUTICASONE 50MCG/SPRAY NASAL 16GM EA NOSTRIL SCH (09:00)
[2018-05-12] MEDS ORDERED: NON-FORMULARY DRUG (Umeclidinium Brm/Vilanterol Tr [Anoro Ellipta 62.5-25 Mcg Inh] 1 PUFF) INHALATION SCH (09:00)
[2018-05-12] MEDS ORDERED: MONTELUKAST 10 MG TAB PO SCH (09:00)
[2018-05-12 09:35] LABS: ABG Base Excess 16.1 mmol/L; ABG Oxygen Saturation 99.1 % (94-97); ABG PCO2 60 mmHg (35-45); ABG PH 7.43 (7.35-7.45); ABG PO2 109 mmHg (83-108); ABG TCO2 42 mmol/L (19-24)
[2018-05-12 09:37] LABS: ABG HCO3 40 mmol/L (21-25)
[2018-05-12] MEDS ORDERED: SODIUM CHLORIDE 0.9% 1,000 ML IV ONE (10:47)
[2018-05-12] MEDS ORDERED: SPIRONOLACTONE 25 MG TAB PO SCH (12:00)
--- NOTE | 2018-05-12 12:03 | ECHOF ---
Referral Reason:respiratory failure MEASUREMENTS -------- HEIGHT: 165.1 cm WEIGHT: 104.8 kg BP: 100/81 RVIDd: 3.5 cm (< 3.3) IVSd: 1.4 cm (0.6 - 1.1) LVIDd: 4.6 cm (3.9 - 5.3) LVPWd: 1.1 cm (0.6 - 1.1) IVSs: 1.9 cm LVIDs: 3.4 cm LVPWs: 1.6 cm LA Diam: 3.6 cm (2.7 - 3.8) LAESV Index (A-L): 52.34 ml/m Ao Diam: 3.2 cm (2.0 - 3.7) AV Cusp: 2.1 cm (1.5 - 2.6) MV EXCURSION: 9.957 mm (> 18.000) MV EF SLOPE: 77 mm/s (70 - 150) EPSS: 1.0 cm AV maxP.99 mmHg AV meanP.60 mmHg RAP: 15.00 mmHg RVSP: 49.21 mmHg FINDINGS -------- Atrial fibrillation. This was a technically adequate study. The left ventricular size is normal. There is moderate concentric left ventricular hypertrophy. O verall left ventricular systolic function is moderate-severely impaired with, an EF between 30 - 35 % . The right ventricle is mildly enlarged. The global wall thickness of the right ventricle is moderat craig enlarged. LA is severely dilated >40 ml/m2 The right atrium is normal in size. There is mild aortic valve sclerosis. The mitral valve leaflets are mildly thickened. Mild mitral annular calcification present. Mild m itral regurgitation is present. Bsmk-[id number]-cjfqfnjj tricuspid regurgitation present. There is moderate pulmonary hypertension. The r ight ventricular systolic pressure, as measured by Doppler, is 49.21mmHg. The pulmonic valve was not well visualized. The aortic root size is normal. The inferior vena cava is dilated with no significant inspiratory collapse which is consistent estima bibi right atrial pressure of >15 mmHg. There is no pericardial effusion. CONCLUSIONS -------- 1. Atrial fibrillation. 2. This was a technically adequate study. 3. The left ventricular size is normal. 4. There is moderate concentric left ventricular hypertrophy. 5. Overall left ventricular systolic function is moderate-severely impaired with, an EF between 30 - 35 %. 6. The right ventricle is mildly enlarged. 7. The global wall thickness of the right ventricle is moderately enlarged. 8. LA is severely dilated >40 ml/m2 9. The right atrium is normal in size. 10. There is mild aortic valve sclerosis. 11. The mitral valve leaflets are mildly thickened. 12. Mild mitral annular calcification present. 13. Mild mitral regurgitation is present. 14. Jlmu-ga-[id number] tricuspid regurgitation present. 15. There is moderate pulmonary hypertension. 16. The right ventricular systolic pressure, as measured by Doppler, is 49.21mmHg. 17. The pulmonic valve was not well visualized. 18. The aortic root size is normal. 19. The inferior vena cava is dilated with no significant inspiratory collapse which is consistent es timated right atrial pressure of >15 mmHg. 20. There is no pericardial effusion. SQL CONSULTANT: Martha Trevizo RDCS
[2018-05-12 12:12] LABS: Glucose,Whole Blood 137 mg/dL (75-99)
--- NOTE | 2018-05-12 12:43 | XR ---
EXAMINATION TYPE: XR chest 1V portable DATE OF EXAM: 05/12/2018 Comparison: 05/12/2018, earlier today Clinical History: 67 year-old female right subclavian triple lumen placement Findings: The heart remains mildly enlarged. Diffuse interstitial prominence. Continued blunted left costophren ic angle and retrocardiac opacity. Right subclavian CVC tip extends into the right atrium. NG tube co urses below the diaphragm. ET tube is satisfactory. Diffuse interstitial prominence, stable to slight ly increased. Impression: 1. Right subclavian CVC tip in the right atrium. 2. Cardiomegaly and slight increase in interstitial changes. Correlate for pulmonary vascular congest ion. 3. A small to moderate left pleural effusion with adjacent atelectasis and/or consolidation also slig htly increased.
[2018-05-12] MEDS ORDERED: DEXTROSE 5% IN WATER 100 ML with AMIODARONE 150 MG IV ONE (13:07)
[2018-05-12] MEDS: CHLORHEXIDINE GLUCONATE 15 ML CUP MUCOUS MEM SCH ×2 (13:10→21:39)
[2018-05-12] MEDS: ASPIRIN 325 MG TAB PO SCH (13:12)
[2018-05-12] MEDS: PANTOPRAZOLE 40 MG/10 ML VIAL IV SCH (13:12)
[2018-05-12] MEDS: GENTAMICIN 0.1% CREAM 15 GM TUBE TOPICAL SCH ×3 (13:12→21:39)
--- NOTE | 2018-05-12 13:16 | CONS ---
CONSULTATION Mrs. Ayers is a 67-year-old female, who is seen for cardiac evaluation. The patient is currently intubated and the history is mostly obtained from the chart. This patient has a known history of congestive heart failure, COPD and chronic kidney disease. The patient was evaluated yesterday by visiting nurses for the chronic wounds. Patient was found to be quite short of breath and this had been going on from the night before and in the morning. Patient did not complain of any chest pain, chills or nausea. Patient was given and BiPAP, but that did not really help her and subsequently patient was brought to the emergency room. In the emergency room, patient initially improved with BiPAP but subsequently patient's respiratory conditions deteriorated and the patient ended up being intubated. Patient also was found to be in atrial fibrillation with rapid rate. Patient currently remains intubated. PATIENT'S HOME MEDICATIONS: Included albuterol inhaler, Cymbalta, Voltaren gel, Flonase, Lasix 40 mg b.i.d., Zaroxolyn once a day, Zofran, Aldactone 50 mg daily, Carafate, Mucinex and Glucophage. REVIEW OF THE SYSTEM: Otherwise unremarkable. PAST MEDICAL HISTORY: Includes a history of COPD, history of respiratory disorders, congestive heart failure, atrial fibrillation and coronary artery disease. History of appendectomy and orthopedic surgeries. SOCIAL HISTORY: Patient is a former smoker. PHYSICAL EXAMINATION: At present reveals a 67-year-old, obese female who is currently intubated. Patient's blood pressure is running low in the range of 90-100. HEENT examination is negative. Neck is supple. Jugular venous pressure is difficult to assess. Heart, first and second heart sounds are heard. Lung examination reveals bilateral scattered rhonchi. Abdomen is soft. Extremities, there is a trace leg edema. Chest x-ray suggestive of congestive cardiac failure. EKG shows evidence of atrial fibrillation. Patient's hemoglobin is 8.4. Initial blood gases showed pH of 7.36, pCO2 was 73, PO2 was 395. The blood gases this morning show a pH of 7.43, pCO2 is 63. Electrolytes are normal. Patient's bicarb is 40. Patient 2 sets of troponins are 0.049, 0.047. BNP level was 5,490. Echocardiogram shows evidence of global hypokinesia with estimated ejection fraction of 30%-35%. Right ventricular systolic pressure is a 49 mmHg. IVC is dilated and does not collapse very well suggestive right atrial pressure of 15. FINAL IMPRESSION: This patient is admitted with acute respiratory failure secondary to a combination of acute exacerbation of underlying COPD. Cor pulmonale and acute left-sided acute pulmonary edema. Patient's echocardiogram reveals a moderate to severely impaired left ventricular systolic functions with elevated right atrial pressure. Patient currently is in atrial fibrillation with a rate of 110-120. RECOMMENDATIONS: We will discontinue the Cardizem in view of the impaired LV function and we will start the patient on amiodarone drip. Patient's urine output remains quite poor. In view of that, we will start the patient on Lasix drip. If there is no significant improvement in the urine output, we can consider starting the patient either on dobutamine or a small dose of dopamine. Patient's overall condition remains poor. SHAWANDA / OSITON: [id number] /
[2018-05-12] MEDS: FUROSEMIDE 250 MG in SODIUM CHLORIDE 0.9% 225 ML IVP SCH (13:39)
[2018-05-12] MEDS: AMIODARONE 450 MG in DEXTROSE 5% IN WATER 250 ML IV SCH ×6 (13:39→22:15)
[2018-05-12] MEDS: NOREPINEPHRINE 16 MG in DEXTROSE 5% IN WATER 250 ML IV SCH ×2 (13:40)
[2018-05-12] MEDS ORDERED: VANCOMYCIN IV PER PHARMACY 1 EACH MISC MISCELLANE PRN (13:43)
--- NOTE | 2018-05-12 13:55 | P.CNPUL ---
History of Present Illness Consult date: 05/12/18 Requesting physician: Krissy Mon Reason for consult: other (Acute respiratory failure requiring intubation and mechanical ventilation.) Chief complaint: Shortness of breath History of present illness: This is a 67-year-old female with history of multiple medical problems including chronic hypercapnic respiratory failure, obstructive sleep apnea syndrome, COPD, patient is on home oxygen at 3 L, she is also on BiPAP and seems to be nocturnally BiPAP dependent. Patient is also known to have history of chronic atrial fibrillation, chronic decubitus ulcers, superficial leg ulcers , patient has a visiting nurse taking care of her ulcers and chronic wounds. She was noted by the visiting nurse to be dyspneic, for at least 24 hours prior to presentation. Patient has been using oxygen at home, BiPAP, and she is also on updrafts in the form of DuoNeb. Considering the patient was not noticing significant improvement, patient was advised to come to the ER. Upon arrival to the ER, patient was noted to be quite dyspneic, and did not improve much with BiPAP. Hence she was intubated by Dr. Steve Roberts, placed on mechanical ventilation, admitted to the ICU and this consult was initiated. Presently the patient is on the following ventilator settings tidal volume of 400 assist control rate of 18 FiO2 of 50% and PEEP of 5. She is in atrial fibrillation with RVR, placed on amiodarone to replace Cardizem as per cardiology. Her echocardiogram showed severe ventricular dysfunction ejection fraction of 30-35% . Hence the patient was placed on Lasix drip. Chest x-ray did show evidence of pulmonary edema. Echocardiogram also showed evidence of moderate pulmonary hypertension with a right-sided pressures in the range of 50. Patient was recently diagnosed as having C. difficile colitis, and has been on deficid on outpatient basis. ABG this morning showed a pO2 of 109 pCO2 of 60 pH of 7.43, hence I cut down the FiO2 to 45%. And I kept the same ventilator settings are unchanged. Renal functioning was noted to be abnormal creatinine is 1.90 BUN is 39 however the patient is known to have history of chronic kidney disease stage III. ProBNP level was noted to be elevated over 5500. Troponin was borderline elevated. Urine showed pyuria and bacteriuria suggestive of urinary tract infection. Patient was empirically placed on aztreonam and vancomycin. Infectious disease consultation was also initiated. Review of Systems ROS unobtainable: due to endotracheal tube Past Medical History Past Medical History: Atrial Fibrillation, Coronary Artery Disease (CAD), Heart Failure, COPD, GERD/Reflux, Respiratory Disorder Additional Past Medical History / Comment(s): Chronic Afib, CKD stage III recently diagnosed, NIDDM type II, chronic CO2 retainer, chronic respiratory failure with home O2 at 3L/NC during day and bipap at night, severe GERD, recent diarrhea (past 2 weeks and other family members with diarrhea), current lower extremity cellulitis, current bilateral hip decubitus recently increased to stage II, EF in April 2018 55%, HTN and was on med briefly but did not tolerate even low dose without going hypotensive, anemia, chronic pain- DDD/( sciatica in past), R shoulder/upper arm pain, back pain, bilateral knee pain and recent neck pain, wheelchair bound mostly-able to take couple steps but past 5 days has been bedbound. History of Any Multi-Drug Resistant Organisms: None Reported Date of last positivie culture/infection: 05/06/18 Past Surgical History: Appendectomy, Orthopedic Surgery, Tonsillectomy Additional Past Surgical History / Comment(s): finger surgery d/t chainsaw accident (unknown which finger) Past Anesthesia/Blood Transfusion Reactions: No Reported Reaction Smoking Status: Former smoker - Past Family History Mother Family Medical History: Cancer, CVA/TIA, GI Bleed, Hypertension Additional Family Medical History / Comment(s): Upper GI bleed/ulcers. Father History Unknown: Yes Additional Family Medical History / Comment(s): Father just before pt was born in an employment accident. Medications and Allergies Home Medications Medication Instructions Recorded Confirmed Type Acetaminophen [Tylenol Extra 1,000 mg PO Q6H PRN 05/11/18 05/11/18 History Strength] Albuterol Inhaler [Ventolin Hfa 1 - 2 puff INHALATION RT-Q6H PRN 05/11/18 History Inhaler] Albuterol Nebulized [Ventolin 1.25 mg INHALATION RT-DAILY PRN 05/11/18 05/11/18 History Nebulized] Aspirin 325 mg PO DAILY 05/11/18 05/11/18 History DULoxetine HCL [Cymbalta] 30 mg PO DAILY 05/11/18 05/11/18 History Diclofenac Sodium [Voltaren Gel] 2 gram TOPICAL QID 05/11/18 05/11/18 History Fidaxomicin [Dificid] 400 mg PO BID 05/11/18 05/11/18 History Fluticasone Nasal [place] [Flonase 2 spr EA NOSTRIL DAILY 05/11/18 05/11/18 History Nasal [place]] Fluticasone/Salmeterol [Advair 1 inhalation PO RT-BID 05/11/18 05/11/18 History 250-50 Diskus] Furosemide [Lasix] 40 mg PO BID 05/11/18 05/11/18 History Gentamicin 0.1% Cream 1 applic TOPICAL TID 05/11/18 05/11/18 History Ibuprofen [Motrin Ib] 400 mg PO Q6H PRN 05/11/18 05/11/18 History Ipratropium Nebulized [Atrovent 0.5 mg INHALATION RT-QID 05/11/18 05/11/18 History Nebulized] Metolazone [Zaroxolyn] 5 mg PO DAILY 05/11/18 05/11/18 History Montelukast [Singulair] 10 mg PO DAILY 05/11/18 05/11/18 History Ondansetron [Zofran] 4 mg PO Q8HR PRN 05/11/18 05/11/18 History Spironolactone [Aldactone] 50 mg PO DAILY@1200 05/11/18 05/11/18 History Sucralfate [Carafate] 1 gm PO QID 05/11/18 05/11/18 History Umeclidinium Brm/Vilanterol Tr 1 puff INHALATION DAILY 05/11/18 05/11/18 History [Anoro Ellipta 62.5-25 Mcg INH] guaiFENesin [Mucinex] 1,200 mg PO Q12HR 05/11/18 05/11/18 History metFORMIN HCL [Glucophage] 500 mg PO DAILY 05/11/18 05/11/18 History Allergies Allergy/AdvReac Type Severity Reaction Status Date / Time acetaminophen [From [facility]] Allergy Unknown Verified 05/11/18 14:54 banana Allergy Unknown Verified 05/11/18 14:54 hydrocodone Allergy Unknown Verified 05/11/18 14:54 levofloxacin Allergy Unknown Verified 05/11/18 14:54 Penicillins Allergy Unknown Verified 05/11/18 14:54 tomato Allergy Unknown Verified 05/11/18 14:54 Physical Exam Vitals: Vital Signs Temp Pulse Resp BP Pulse Ox 05/12/18 13:00 122 H 17 92/65 99 05/12/18 12:30 128 H 17 95/59 98 05/12/18 12:00 98.5 F 102 H 18 93/67 99 05/12/18 11:47 100 18 05/12/18 11:31 119 H 18 05/12/18 11:30 127 H 20 116/64 99 05/12/18 11:00 142 H 31 H 116/71 99 05/12/18 10:30 120 H 17 70/63 100 05/12/18 10:00 104 H 18 82/57 100 05/12/18 09:30 113 H 18 91/61 100 05/12/18 09:00 114 H 18 87/65 100 05/12/18 08:30 107 H 93/53 100 05/12/18 08:00 98.9 F 103 H 73/53 100 05/12/18 07:55 94 18 05/12/18 07:45 96 18 05/12/18 07:30 122 H 82/59 100 05/12/18 07:00 102 H 18 85/55 100 05/12/18 06:30 104 H 18 73/55 100 05/12/18 06:00 114 H 18 82/46 100 05/12/18 05:30 101 H 18 100/81 100 05/12/18 05:00 115 H 18 106/72 100 05/12/18 04:30 99 18 112/70 100 05/12/18 04:00 98 F 109 H 18 100/70 100 05/12/18 03:30 103 H 18 81/68 100 05/12/18 03:24 96 05/12/18 03:18 89 05/12/18 03:00 92 19 78/54 100 05/12/18 02:30 87 18 77/53 100 05/12/18 02:00 104 H 18 81/57 100 05/12/18 01:30 120 H 18 88/61 100 05/12/18 01:00 114 H 18 86/60 100 05/12/18 00:30 98 18 82/62 100 05/12/18 00:00 98.6 F 116 H 18 81/59 100 05/11/18 23:36 128 H 05/11/18 23:30 125 H 103/64 100 05/11/18 23:28 114 H 05/11/18 23:00 108 H 18 94/70 100 05/11/18 22:30 133 H 18 78/52 100 05/11/18 22:00 126 H 18 79/55 100 05/11/18 21:30 134 H 18 96/54 100 05/11/18 21:00 98.8 F 136 H 18 85/69 100 05/11/18 19:50 123 H 16 116/56 99 05/11/18 19:26 130 H 05/11/18 19:13 98.0 F 130 H 18 109/68 05/11/18 19:12 145 H 05/11/18 18:51 139 H 14 124/88 99 05/11/18 18:05 137 H 14 125/85 99 05/11/18 17:00 131 H 20 110/56 94 L 05/11/18 16:00 132 H 18 123/53 93 L 05/11/18 15:13 122 H 05/11/18 15:10 135 H 16 131/67 95 05/11/18 15:03 146 H 05/11/18 14:41 97.9 F 90 28 H 94 L Intake and Output 05/11/18 05/12/18 05/12/18 22:59 06:59 14:59 Intake Total 180.835 801.073 3116.292 Output Total 460 140 67 Balance -279.165 213.215 8235.292 Intake: IV 40 160 1140 0.9 NACL bolus 1000 Sodium Chloride 0.9% 1, 40 160 140 000 ml @ 20 mls/hr IV . Q24H [facility] Rx#:[id number] Intake, IV Titration 140.835 208.271 403.292 Amount Diltiazem 50 mg In Sodium 50 Chloride 0.9% 40 ml @ 5 MG/HR 5 mls/hr IV .Q10H [facility] Rx#:[id number] Heparin Sod,Pork in 0.45% 111 116.216 87.667 NaCl 25,000 unit In 0.45 % NaCl 1 500ml.bag @ 9.8 UNITS/KG/HR 20 mls/hr IV .Q24H [facility] Rx#:[id number] Norepinephrine 4 mg In 165.625 Dextrose 5% in Water 250 ml @ Titrate IV .Q0M [facility] Rx#:[id number] Propofol 1,000 mg In 29.835 Empty Bag 1 bag @ Titrate IV .Q0M [facility] Rx#: [id number] Propofol 1,000 mg In 92.055 100.000 Empty Bag 1 bag @ Titrate IV .Q0M [facility] Rx#: [id number] Output: Urine 460 140 67 Uretheral (Hernandez) 100 Other: Voiding Method Indwelling Catheter Weight 105 kg 105 kg ABP, PAP, CO, CI - Last 8 Hours Arterial Blood Pressure 100/57 Arterial Blood Pressure 105/63 Arterial Blood Pressure 99/64 Physical Exam: Revealed a 67-year-old female, morbidly obese, on mechanical ventilation, sedated, on propofol. Head: Atraumatic, normocephalic. HEENT: Obese neck [Neck is supple.] [No neck masses.] [No thyromegaly.] [No JVD. ] Chest: [Crackles at the bases, symmetrical expansion, no chest wall tenderness.] Cardiac Exam: [Irregular irregular rhythm, distant S1 and S2, no S3 gallop, no murmur.] Abdomen: [Obese, Soft, nontender, no megaly, no rebound, no guarding, normal bowel sounds.] Extremities: [Trace of bipedal edema, minimal superficial scabs and lacerations noted without any drainage noted in lower extremities. According to the nurse patient had also 3 stage III decubitus ulcers] Neurological Exam: Cannot be assessed, patient is fully sedated, on propofol, on mechanical ventilation. Psychiatric: Could not be assessed, on mechanical ventilation. Lymphatics: No lymphadenopathy. Results - Laboratory Findings CBC and BMP: 05/12/18 03:06 05/12/18 03:06 ABG ABG pH 7.43 (7.35-7.45) 05/12/18 09:33 ABG pCO2 60 mmHg (35-45) H 05/12/18 09:33 ABG pO2 109 mmHg (83-108) H 05/12/18 09:33 ABG O2 Saturation 99.1 % (94-97) H 05/12/18 09:33 PT/INR, D-dimer PT 11.2 sec (9.0-12.0) 05/11/18 15:00 INR 1.2 (<1.2) H 05/11/18 15:00 D-Dimer 0.57 mg/L FEU (<0.60) 05/11/18 15:00 Abnormal lab findings: Abnormal Labs 05/11/18 05/11/18 05/11/18 15:00 15:00 15:00 WBC 13.7 H RBC Hgb 9.9 L Hct 33.1 L MCHC 30.0 L RDW 18.9 H Plt Count 498 H Neutrophils # 11.8 H Lymphocytes # 0.9 L INR APTT ABG pCO2 ABG pO2 ABG HCO3 ABG Total CO2 ABG O2 Saturation Sodium 136 L Chloride 90 L Carbon Dioxide 40 H* BUN 38 H Creatinine 1.70 H Glucose 114 H POC Glucose (mg/dL) Calcium Phosphorus Alkaline Phosphatase 128 H Troponin I 0.046 H* Total Protein 4.9 L Albumin 2.6 L Urine Appearance Urine Protein Ur Leukocyte Esterase Urine WBC Amorphous Sediment Urine Bacteria Hyaline Casts Urine Mucus 05/11/18 05/11/18 05/11/18 15:00 18:44 19:56 WBC RBC Hgb Hct MCHC RDW Plt Count Neutrophils # Lymphocytes # INR 1.2 H APTT ABG pCO2 73 H* ABG pO2 395 H ABG HCO3 41 H* ABG Total CO2 43 H ABG O2 Saturation 100.0 H Sodium Chloride Carbon Dioxide BUN Creatinine Glucose POC Glucose (mg/dL) Calcium Phosphorus Alkaline Phosphatase Troponin I Total Protein Albumin Urine Appearance Cloudy H Urine Protein 1+ H Ur Leukocyte Esterase Trace H Urine WBC Amorphous Sediment Occasional H Urine Bacteria Hyaline Casts 102 H Urine Mucus Rare H 05/11/18 05/11/18 05/11/18 22:44 22:44 23:45 WBC RBC Hgb Hct MCHC RDW Plt Count Neutrophils # Lymphocytes # INR APTT 81.6 H ABG pCO2 ABG pO2 ABG HCO3 ABG Total CO2 ABG O2 Saturation Sodium Chloride Carbon Dioxide BUN Creatinine Glucose POC Glucose (mg/dL) Calcium Phosphorus Alkaline Phosphatase Troponin I 0.049 H* Total Protein Albumin Urine Appearance Cloudy H Urine Protein Ur Leukocyte Esterase Large H Urine WBC 33 H Amorphous Sediment Rare H Urine Bacteria Rare H Hyaline Casts 49 H Urine Mucus Rare H 05/12/18 05/12/18 05/12/18 00:25 03:06 03:06 WBC RBC 3.24 L Hgb 8.4 L D Hct 27.8 L MCHC 30.2 L RDW 18.8 H Plt Count Neutrophils # 9.4 H Lymphocytes # 0.5 L INR APTT ABG pCO2 ABG pO2 ABG HCO3 ABG Total CO2 ABG O2 Saturation Sodium 134 L Chloride 92 L Carbon Dioxide 36 H BUN 39 H Creatinine 1.90 H Glucose 123 H POC Glucose (mg/dL) 124 H Calcium 8.1 L Phosphorus 5.9 H Alkaline Phosphatase Troponin I Total Protein Albumin Urine Appearance Urine Protein Ur Leukocyte Esterase Urine WBC Amorphous Sediment Urine Bacteria Hyaline Casts Urine Mucus 05/12/18 05/12/18 05/12/18 03:06 05:27 06:08 WBC RBC Hgb Hct MCHC RDW Plt Count Neutrophils # Lymphocytes # INR APTT 43.7 H ABG pCO2 ABG pO2 ABG HCO3 ABG Total CO2 ABG O2 Saturation Sodium Chloride Carbon Dioxide BUN Creatinine Glucose POC Glucose (mg/dL) 152 H Calcium Phosphorus Alkaline Phosphatase Troponin I 0.047 H* Total Protein Albumin Urine Appearance Urine Protein Ur Leukocyte Esterase Urine WBC Amorphous Sediment Urine Bacteria Hyaline Casts Urine Mucus 05/12/18 05/12/18 09:33 12:09 WBC RBC Hgb Hct MCHC RDW Plt Count Neutrophils # Lymphocytes # INR APTT ABG pCO2 60 H ABG pO2 109 H ABG HCO3 40 H* ABG Total CO2 42 H ABG O2 Saturation 99.1 H Sodium Chloride Carbon Dioxide BUN Creatinine Glucose POC Glucose (mg/dL) 137 H Calcium Phosphorus Alkaline Phosphatase Troponin I Total Protein Albumin Urine Appearance Urine Protein Ur Leukocyte Esterase Urine WBC Amorphous Sediment Urine Bacteria Hyaline Casts Urine Mucus - Diagnostic Findings Chest x-ray: image reviewed (Cardiomegaly and interstitial prominence bilaterally consistent with pulmonary vascular congestion/pulmonary edema small left pleural effusion is suspected with atelectasis, right subclavian central line noted.) Assessment and Plan Assessment: Impression: 1 acute on chronic hypoxic and hypercapnic respiratory failure secondary to acute systolic congestive heart failure and underlying COPD with acute exacerbation of COPD. 2 atrial fibrillation with RVR, patient is presently on amiodarone, did not improve much with Cardizem, patient was on Eliquis on outpatient basis, presently on heparin drip. 3 acute hypotension, multifactorial secondary to severe LV dysfunction, atrial fibrillation, RVR, and possibly some component of sepsis. This is yet to be determined. 4 possible sepsis, and septic shock requiring norepinephrine. likely sources would be urine or skin/decubitus ulcers. Hence the patient was empirically placed on aztreonam and vancomycin. 5 acute on chronic kidney disease stage III per history. 6 chronic hypercapnic respiratory failure and chronic hypoxic respiratory failure secondary to COPD. 7 chronic decubitus and skin ulcers. Recommendation: Continue mechanical ventilation, GI and DVT prophylaxis, empiric antibiotics until cultures become available, amiodarone for atrial fibrillation, norepinephrine for hypotension and this should be titrated to a mean arterial pressure of 65. Nephrology, cardiology, and infectious disease consultations were initiated. Prognosis is definitely poor and guarded, patient is critically ill. Lines were placed including a right subclavian central line and a right femoral arterial line. Continue Lasix drip for congestive heart failure. We will discuss her condition with family once they are available at bedside. Time with Patient: Greater than 30
[2018-05-12] MEDS ORDERED: VANCOMYCIN 1,750 MG in SODIUM CHLORIDE 0.9% 500 ML IVPB ONE (14:30)
[2018-05-12] MEDS: FUROSEMIDE 10 MG/ML 4 ML VIAL IV SCH (14:57)
--- NOTE | 2018-05-12 15:05 | CDI ---
Last Revision, September 2017 Documentation Clarification Form Date: 05/12/18 From: Sonia Parnell RN Admit Date: 05/11/2018 4:55:00 PM Patient Name: Shirley Ayers Visit Number: [id number] ATTENTION: The Clinical Documentation Specialists (CDI) and [facility] Coding Staff appreciate your assistance in clarifying documentation. Please respond to the clarification below the line at the bottom and electronically sign. The CDI & [facility] Coding staff will review the response and follow-up if needed. Please note: Queries are made part of the Legal Health Record. If you have any questions, please contact the author of this message via ITS. Dr. Suhail Ruiz MD, Can you please render your opinion on the following? Patient presented with SOB. Admitted with acute on chronic hypoxic respiratory failure due to pulmonary edema, acute diastolic chf exacerbation, requiring intubation. History/Risk Factors: CKD 3, DM 2 CHF, COPD, 3L HOME O2, chronic a fib,, c diff , x smoker Clinical Indicators: Vital Signs on admission 97.9, P 90, R 28, 94% BIPAP WBC on admission: 13.7 Urinalysis on admission: cloudy, +1 protein, trace leukocyte esterase, occasional Amorphous Sediment, Hyaline casts 102, Mucus rare, urine bacteria rare Urine Culture: in progress Consult on 05/12 states urine showed pyuria and bacteriuria suggestive of urinary tract infection. Treatment: Antibiotics: Aztreonam IVPB, Vanco IVPB Please document the condition that these clinical indicators signify, whether Present on Admission, and cause if known: UTI ruled in UTI ruled out With Sepsis If due to catheter, device or implant, please document Specify organism, if known Other, please specify Unable to determine Present on Admission: Yes No Please continue to document in your progress notes, under the line below and/or in the discharge summary in order to capture severity of illness and risk of mortality. Include clinical findings that support your diagnosis. MTDD
--- NOTE | 2018-05-12 15:07 | P.PN ---
Subjective Patient remains intubated. Under sedation but responsive. She remained in a fib with RVR over night and BP became low with sedation and cardizem drip. Echo showed EF 30-35%, worsening from before. She has had few loose BM. daughter infromed me of previous diarrhea for at least 2 weeks and that the patient finished course of Dificid,without improvement. Objective - Vital Signs Vital signs: Vital Signs Temp 98.5 F 05/12/18 12:00 Pulse 122 H 05/12/18 13:00 Resp 17 05/12/18 13:00 BP 92/65 05/12/18 13:00 Pulse Ox 99 05/12/18 13:00 Intake & Output 05/11/18 05/12/18 05/12/18 18:59 06:59 18:59 Intake Total 209.094 1604.292 Output Total 100 500 67 Balance -100 49.106 1476.292 Weight 102.058 kg 105 kg 105 kg Intake: IV 200 1140 0.9 NACL bolus 1000 Sodium Chloride 0.9% 1, 200 140 000 ml @ 20 mls/hr IV . Q24H [facility] Rx#:[id number] Intake, IV Titration 349.106 403.292 Amount Diltiazem 50 mg In Sodium 50 Chloride 0.9% 40 ml @ 5 MG/HR 5 mls/hr IV .Q10H [facility] Rx#:[id number] Heparin Sod,Pork in 0.45% 227.216 87.667 NaCl 25,000 unit In 0.45 % NaCl 1 500ml.bag @ 9.8 UNITS/KG/HR 20 mls/hr IV .Q24H [facility] Rx#:[id number] Norepinephrine 4 mg In 165.625 Dextrose 5% in Water 250 ml @ Titrate IV .Q0M [facility] Rx#:[id number] Propofol 1,000 mg In 29.835 Empty Bag 1 bag @ Titrate IV .Q0M ONE Rx#: [id number] Propofol 1,000 mg In 92.055 100.000 Empty Bag 1 bag @ Titrate IV .Q0M [facility] Rx#: [id number] Output: Urine 100 500 67 Uretheral (Hernandez) 100 Other: Voiding Method Indwelling Catheter ABP, PAP, CO, CI - Last Documented Arterial Blood Pressure 100/57 - Exam Intubated sedated - EENT Eyes: Present: PERRLA - Respiratory Respiratory: bilateral: diminished - Cardiovascular Rhythm: irregularly irregular Heart sounds: normal: S1, S2 - Gastrointestinal General gastrointestinal: Present: normal bowel sounds, soft. Absent: tenderness - Integumentary Integumentary: Absent: cellulitis, cyanotic, pale - Labs CBC & Chem 7: 05/12/18 03:06 05/12/18 03:06 Labs: Abnormal Lab Results - Last 24 Hours (Table) 05/11/18 05/11/18 05/11/18 Range/Units 15:00 15:00 15:00 WBC 13.7 H (3.8-10.6) k/uL RBC (3.80-5.40) m/uL Hgb 9.9 L (11.4-16.0) gm/dL Hct 33.1 L (34.0-46.0) % MCHC 30.0 L (31.0-37.0) g/dL RDW 18.9 H (11.5-15.5) % Plt Count 498 H (150-450) k/uL Neutrophils # 11.8 H (1.3-7.7) k/uL Lymphocytes # 0.9 L (1.0-4.8) k/uL INR (<1.2) APTT (22.0-30.0) sec ABG pCO2 (35-45) mmHg ABG pO2 (83-108) mmHg ABG HCO3 (21-25) mmol/L ABG Total CO2 (19-24) mmol/L ABG O2 Saturation (94-97) % Sodium 136 L (137-145) mmol/L Chloride 90 L (98-107) mmol/L Carbon Dioxide 40 H* (22-30) mmol/L BUN 38 H (7-17) mg/dL Creatinine 1.70 H (0.52-1.04) mg/dL Glucose 114 H (74-99) mg/dL POC Glucose (mg/dL) (75-99) mg/dL Calcium (8.4-10.2) mg/dL Phosphorus (2.5-4.5) mg/dL Alkaline Phosphatase 128 H (38-126) U/L Troponin I 0.046 H* (0.000-0.034) ng/mL Total Protein 4.9 L (6.3-8.2) g/dL Albumin 2.6 L (3.5-5.0) g/dL Urine Appearance (Clear) Urine Protein (Negative) Ur Leukocyte Esterase (Negative) Urine WBC (0-5) /hpf Amorphous Sediment (None) /hpf Urine Bacteria (None) /hpf Hyaline Casts (0-2) /lpf Urine Mucus (None) /hpf 05/11/18 05/11/18 05/11/18 Range/Units 15:00 18:44 19:56 WBC (3.8-10.6) k/uL RBC (3.80-5.40) m/uL Hgb (11.4-16.0) gm/dL Hct (34.0-46.0) % MCHC (31.0-37.0) g/dL RDW (11.5-15.5) % Plt Count (150-450) k/uL Neutrophils # (1.3-7.7) k/uL Lymphocytes # (1.0-4.8) k/uL INR 1.2 H (<1.2) APTT (22.0-30.0) sec ABG pCO2 73 H* (35-45) mmHg ABG pO2 395 H (83-108) mmHg ABG HCO3 41 H* (21-25) mmol/L ABG Total CO2 43 H (19-24) mmol/L ABG O2 Saturation 100.0 H (94-97) % Sodium (137-145) mmol/L Chloride (98-107) mmol/L Carbon Dioxide (22-30) mmol/L BUN (7-17) mg/dL Creatinine (0.52-1.04) mg/dL Glucose (74-99) mg/dL POC Glucose (mg/dL) (75-99) mg/dL Calcium (8.4-10.2) mg/dL Phosphorus (2.5-4.5) mg/dL Alkaline Phosphatase (38-126) U/L Troponin I (0.000-0.034) ng/mL Total Protein (6.3-8.2) g/dL Albumin (3.5-5.0) g/dL Urine Appearance Cloudy H (Clear) Urine Protein 1+ H (Negative) Ur Leukocyte Esterase Trace H (Negative) Urine WBC (0-5) /hpf Amorphous Sediment Occasional H (None) /hpf Urine Bacteria (None) /hpf Hyaline Casts 102 H (0-2) /lpf Urine Mucus Rare H (None) /hpf 05/11/18 05/11/18 05/11/18 Range/Units 22:44 22:44 23:45 WBC (3.8-10.6) k/uL RBC (3.80-5.40) m/uL Hgb (11.4-16.0) gm/dL Hct (34.0-46.0) % MCHC (31.0-37.0) g/dL RDW (11.5-15.5) % Plt Count (150-450) k/uL Neutrophils # (1.3-7.7) k/uL Lymphocytes # (1.0-4.8) k/uL INR (<1.2) APTT 81.6 H (22.0-30.0) sec ABG pCO2 (35-45) mmHg ABG pO2 (83-108) mmHg ABG HCO3 (21-25) mmol/L ABG Total CO2 (19-24) mmol/L ABG O2 Saturation (94-97) % Sodium (137-145) mmol/L Chloride (98-107) mmol/L Carbon Dioxide (22-30) mmol/L BUN (7-17) mg/dL Creatinine (0.52-1.04) mg/dL Glucose (74-99) mg/dL POC Glucose (mg/dL) (75-99) mg/dL Calcium (8.4-10.2) mg/dL Phosphorus (2.5-4.5) mg/dL Alkaline Phosphatase (38-126) U/L Troponin I 0.049 H* (0.000-0.034) ng/mL Total Protein (6.3-8.2) g/dL Albumin (3.5-5.0) g/dL Urine Appearance Cloudy H (Clear) Urine Protein (Negative) Ur Leukocyte Esterase Large H (Negative) Urine WBC 33 H (0-5) /hpf Amorphous Sediment Rare H (None) /hpf Urine Bacteria Rare H (None) /hpf Hyaline Casts 49 H (0-2) /lpf Urine Mucus Rare H (None) /hpf 05/12/18 05/12/18 05/12/18 Range/Units 00:25 03:06 03:06 WBC (3.8-10.6) k/uL RBC 3.24 L (3.80-5.40) m/uL Hgb 8.4 L D (11.4-16.0) gm/dL Hct 27.8 L (34.0-46.0) % MCHC 30.2 L (31.0-37.0) g/dL RDW 18.8 H (11.5-15.5) % Plt Count (150-450) k/uL Neutrophils # 9.4 H (1.3-7.7) k/uL Lymphocytes # 0.5 L (1.0-4.8) k/uL INR (<1.2) APTT (22.0-30.0) sec ABG pCO2 (35-45) mmHg ABG pO2 (83-108) mmHg ABG HCO3 (21-25) mmol/L ABG Total CO2 (19-24) mmol/L ABG O2 Saturation (94-97) % Sodium 134 L (137-145) mmol/L Chloride 92 L (98-107) mmol/L Carbon Dioxide 36 H (22-30) mmol/L BUN 39 H (7-17) mg/dL Creatinine 1.90 H (0.52-1.04) mg/dL Glucose 123 H (74-99) mg/dL POC Glucose (mg/dL) 124 H (75-99) mg/dL Calcium 8.1 L (8.4-10.2) mg/dL Phosphorus 5.9 H (2.5-4.5) mg/dL Alkaline Phosphatase (38-126) U/L Troponin I (0.000-0.034) ng/mL Total Protein (6.3-8.2) g/dL Albumin (3.5-5.0) g/dL Urine Appearance (Clear) Urine Protein (Negative) Ur Leukocyte Esterase (Negative) Urine WBC (0-5) /hpf Amorphous Sediment (None) /hpf Urine Bacteria (None) /hpf Hyaline Casts (0-2) /lpf Urine Mucus (None) /hpf 05/12/18 05/12/18 05/12/18 Range/Units 03:06 05:27 06:08 WBC (3.8-10.6) k/uL RBC (3.80-5.40) m/uL Hgb (11.4-16.0) gm/dL Hct (34.0-46.0) % MCHC (31.0-37.0) g/dL RDW (11.5-15.5) % Plt Count (150-450) k/uL Neutrophils # (1.3-7.7) k/uL Lymphocytes # (1.0-4.8) k/uL INR (<1.2) APTT 43.7 H (22.0-30.0) sec ABG pCO2 (35-45) mmHg ABG pO2 (83-108) mmHg ABG HCO3 (21-25) mmol/L ABG Total CO2 (19-24) mmol/L ABG O2 Saturation (94-97) % Sodium (137-145) mmol/L Chloride (98-107) mmol/L Carbon Dioxide (22-30) mmol/L BUN (7-17) mg/dL Creatinine (0.52-1.04) mg/dL Glucose (74-99) mg/dL POC Glucose (mg/dL) 152 H (75-99) mg/dL Calcium (8.4-10.2) mg/dL Phosphorus (2.5-4.5) mg/dL Alkaline Phosphatase (38-126) U/L Troponin I 0.047 H* (0.000-0.034) ng/mL Total Protein (6.3-8.2) g/dL Albumin (3.5-5.0) g/dL Urine Appearance (Clear) Urine Protein (Negative) Ur Leukocyte Esterase (Negative) Urine WBC (0-5) /hpf Amorphous Sediment (None) /hpf Urine Bacteria (None) /hpf Hyaline Casts (0-2) /lpf Urine Mucus (None) /hpf 05/12/18 05/12/18 Range/Units 09:33 12:09 WBC (3.8-10.6) k/uL RBC (3.80-5.40) m/uL Hgb (11.4-16.0) gm/dL Hct (34.0-46.0) % MCHC (31.0-37.0) g/dL RDW (11.5-15.5) % Plt Count (150-450) k/uL Neutrophils # (1.3-7.7) k/uL Lymphocytes # (1.0-4.8) k/uL INR (<1.2) APTT (22.0-30.0) sec ABG pCO2 60 H (35-45) mmHg ABG pO2 109 H (83-108) mmHg ABG HCO3 40 H* (21-25) mmol/L ABG Total CO2 42 H (19-24) mmol/L ABG O2 Saturation 99.1 H (94-97) % Sodium (137-145) mmol/L Chloride (98-107) mmol/L Carbon Dioxide (22-30) mmol/L BUN (7-17) mg/dL Creatinine (0.52-1.04) mg/dL Glucose (74-99) mg/dL POC Glucose (mg/dL) 137 H (75-99) mg/dL Calcium (8.4-10.2) mg/dL Phosphorus (2.5-4.5) mg/dL Alkaline Phosphatase (38-126) U/L Troponin I (0.000-0.034) ng/mL Total Protein (6.3-8.2) g/dL Albumin (3.5-5.0) g/dL Urine Appearance (Clear) Urine Protein (Negative) Ur Leukocyte Esterase (Negative) Urine WBC (0-5) /hpf Amorphous Sediment (None) /hpf Urine Bacteria (None) /hpf Hyaline Casts (0-2) /lpf Urine Mucus (None) /hpf Microbiology - Last 24 Hours (Table) 05/11/18 23:45 Urine Culture - Preliminary Urine,Catheterized - Imaging and Cardiology Chest x-ray: report reviewed, image reviewed Assessment and Plan Plan: 1. Acute on chronic hypoxic respiratory failure, clinically due to pulmonary edema due to acute systolic CHF exacerbation and fluid redistribution in the background of chronic renal insufficiency with A. fib with RVR intubated Pulmo/CC follwing with wet and cold presentation cardiology following, plan for diuresis and possibly inotrops septic work up so far negative 2. A. fib with RVR Acute on chronic TSH ok Changed to amiodarone drip cont on anticoag 3. Chronic hypercarbic respiratory failure BiPAP dependent due to COPD and obesity hypoventilation syndrome with history of smoking ABG stable, no acidosis 4. CKD stage III creatinine stable Nephrology consulted 5. Anemia, normocytic chronic with mild Hb drop no obvious signs of bleeding will monitor H&H Q6 hrs 6. Subacute diarrhea treated for C diff recenty without improvement C diff negative here currently in form of few loose BM r/o enteropathy or medications side effects may consider imaging or further evaluation when more stable 7. Acute on chronic debility bed ridden state, low albumin, protein calorie malnutrition, failure to thrive Overall, guarded prognosis Time with Patient: Greater than 30
--- NOTE | 2018-05-12 15:58 | CONS ---
CONSULTATION REASON FOR CONSULTATION: Renal failure. HISTORY OF PRESENT ILLNESS: The patient is a 67-year-old female who was admitted to the hospital yesterday with complaints of shortness of breath. The patient was evaluated by Visiting Nurses and was noted to have increasing wounds and swelling in the legs and was advised further evaluation. The patient was found to be in CHF and she was started on Lasix. However, she became hypotensive and respiratory failure worsened and so she was intubated. Serum creatinine was 1.7 mg/dL yesterday. Today it is at 1.9. I do not have any previous labs available for comparisons. The patient is maintained on 40 mg of Lasix IV q.8 hours. She has not had much urine output and her urine output has been staying at about 10 mL an hour. This morning, patient had an echocardiogram done which showed ejection fraction of 30-35%. Left atrium is severely dilated. The patient was also hypotensive and is currently maintained on Levophed. White cell count was mildly elevated on initial admission. It is a possibility of underlying urine infection. PAST MEDICAL HISTORY: Includes coronary artery disease, COPD, gastroesophageal reflux disease, history of C diff colitis recently. PAST SURGICAL HISTORY: Appendectomy and finger surgery. SOCIAL HISTORY: Positive for patient being a former smoker. No history of drug abuse or alcohol abuse. MEDICATIONS: Medications at home prior to admission included Glucophage, Mucinex, Carafate, Aldactone, Zofran, singular, Zaroxolyn, Motrin, Dificid, Voltaren gel, Cymbalta, Ventolin inhaler. REVIEW OF SYSTEMS: Cannot be obtained. PHYSICAL EXAMINATION: Patient is currently on the ventilator. However, she is awake and following commands. Blood pressure was 95/59, heart rate 128 per minute. Patient is afebrile. Examination of the heart S1, S2. Examination of the lungs bilateral breath sounds are heard. Decreased breath sounds at the bases. Abdomen is soft, nontender. Examination of lower extremities shows edema 2+ bilaterally. The skin is not examined. CHARGE ENTRY exam cannot be assessed. LAB: Show sodium 134, potassium 3.8, BUN 39, serum creatinine 1.99, hemoglobin 8.4 g/dL. Troponin 0.047. C diff toxin was negative. ASSESSMENT: 1. Acute kidney injury, acute tubular necrosis, currently oliguric secondary to hypotension, hypoperfusion. May be a component of cardiorenal syndrome as well given the underlying CHF and low ejection fraction. The patient is currently hypotensive and maintained on Levophed. I will agree with increasing the diuretics. The patient is currently on Lasix drip. If she does not respond and the urine output is not improving, we will need to start hydrofluoric agents in the form of dobutamine on Milrinone. 2. Atrial fibrillation with RVR, maintained on amiodarone drip. 3. Congestive heart failure exacerbation, systolic, acute on top of chronic. PLAN: 1. Agree with Lasix drip as the patient has not had much urine output with the IV plus Lasix. She may need to be started on dobutamine or Milrinone depending on her response. Continue to avoid nonsteroidal antiinflammatory agents. The patient was on Motrin prior to admission. 2. Chronic kidney disease. Previous labs are not available for comparison. Etiology is likely nephrosclerosis. 3. Rule out urinary tract infection. Patient is maintained on empiric antibiotics. Urine culture is currently pending. Plan to increase diuresis and consider inotropic agents if no improvement. Repeat labs in a.m. Thank you for this consultation. We will continue to follow the patient with you during this hospitalization. MMODL / IJN: [id number] /
[2018-05-12] MEDS: AZTREONAM 1 GM in SODIUM CHLORIDE 0.9% 50 ML IVPB SCH (16:31)
[2018-05-12] MEDS ORDERED: ASPIRIN 325 MG TAB PO SCH (16:57)
--- NOTE | 2018-05-12 17:10 | PCN ---
PROCEDURE NOTE OPERATIVE REPORT: Placement of the right femoral arterial line. PREOPERATIVE DIAGNOSIS: Congestive heart failure, hypotension, possible sepsis. POSTOPERATIVE DIAGNOSIS: Congestive heart failure, hypotension, possible sepsis. ANESTHESIA: None deployed. DESCRIPTION OF PROCEDURE: The patient was placed in a supine position, the right groin was prepared in a sterile fashion. The right femoral artery was palpated, cannulated, and a guidewire was placed. The area was dilated around the guidewire, and then the femoral arterial catheter was used and inserted over the guidewire. The guidewire was removed. Good blood flow and waveform were noted. Line was secured using 3.0 silk sutures. MMODL / IJN: [id number] /
--- NOTE | 2018-05-12 17:10 | PCN ---
PROCEDURE NOTE OPERATIVE REPORT: Placement of a right subclavian triple-lumen catheter. PREOPERATIVE DIAGNOSIS: Acute respiratory failure, congestive heart failure, possible sepsis and hypotension. POSTOPERATIVE DIAGNOSIS: Acute respiratory failure, congestive heart failure, possible sepsis and hypotension. ANESTHESIA USED: 2 mL of 1% lidocaine. PROCEDURE: The patient was placed in a supine position, the area of the right subclavian region was prepared in a sterile fashion and drapes were applied. The area was locally anesthetized with lidocaine. Then using the infraclavicular approach, the right subclavian vein was easily cannulated with 1 stick, and a wire was introduced over and the needle was pulled out. The area was dilated over the guidewire, then a triple- lumen catheter was inserted over the guidewire, and the guidewire was removed. Good blood flow was noted in the 3 different ports of the triple-lumen catheter. Chest x- ray showed no evidence of any immediate complications. Line was secured using 3.0 silk sutures. MMODL / IJN: [id number] /
[2018-05-12 17:14] LABS: Glucose,Whole Blood 189 mg/dL (75-99)
--- NOTE | 2018-05-12 17:19 | PCN ---
PROCEDURE NOTE OPERATIVE REPORT: Placement of the left brachial arterial line. PREOPERATIVE DIAGNOSES: 1. Congestive heart failure. 2. Sepsis. 3. Hypotension. 4. Respiratory failure. POSTOPERATIVE DIAGNOSES: 1. Congestive heart failure. 2. Sepsis. 3. Hypotension. 4. Respiratory failure. ANESTHESIA USED: None deployed. PROCEDURE: The arm was placed flat on a table next to the patient, the left brachial region was prepared in a sterile fashion and drapes were applied. The left brachial artery was palpated, cannulated easily, and a guidewire was placed. An Arrow catheter was introduced over the guidewire, and the guidewire was removed. Good blood flow and good waveform were noted, no evidence of any immediate complications. However, an hour after the line was placed, the line became dislodged, and we had to place another arterial line in the right femoral area. MMANA / IJN: [id number] /
[2018-05-12] MEDS: SODIUM CHLORIDE 0.9% 1,000 ML IV SCH (17:44)
[2018-05-12] MEDS: HEPARIN SOD,PORK IN 0.45% NACL 25,000 UNIT in 0.45% NACL 1 500ML.BAG IV SCH (18:33)
[2018-05-12 21:43] LABS: Glucose,Whole Blood 165 mg/dL (75-99)
[2018-05-13 00:03] LABS: Glucose,Whole Blood 163 mg/dL (75-99)
[2018-05-13] MEDS: AZTREONAM 1 GM in SODIUM CHLORIDE 0.9% 50 ML IVPB SCH ×3 (00:10→17:03)
[2018-05-13] MEDS: IPRATROPIUM-ALBUTEROL 3 ML NEB INHALATION SCH ×6 (03:00→23:38)
[2018-05-13] MEDS: PROPOFOL 1,000 MG in EMPTY BAG 1 BAG IV SCH ×3 (03:09→20:52)
[2018-05-13 03:58] LABS: Anisocytosis Slight; Basophils % (A) 0 %; Eosinophils % (A) 0 %; HCT 29.7 % (34.0-46.0); HGB 8.8 gm/dL (11.4-16.0); Hypochromasia Marked; Lymphocytes # (A) 0.8 k/uL (1.0-4.8); Lymphocytes % (A) 5 %; MCH 25.3 pg (25.0-35.0); MCHC 29.6 g/dL (31.0-37.0); MCV 85.4 fL (80.0-100.0); Mean Platelet Volume 7.6; Monocytes # (A) 1.1 k/uL (0-1.0); Monocytes % (A) 6 %; Neutrophils # (A) 16.6 k/uL (1.3-7.7); Neutrophils % (A) 89 %; Platelet Count 561 k/uL (150-450); RBC 3.47 m/uL (3.80-5.40); RDW 18.5 % (11.5-15.5); WBC 18.7 k/uL (3.8-10.6)
[2018-05-13 04:07] LABS: Magnesium 2.3 mg/dL (1.6-2.3); Phosphorus 5.8 mg/dL (2.5-4.5)
[2018-05-13] MEDS ORDERED: HEPARIN SODIUM,PORCINE 5,000 UNIT/ML 1 ML VIAL IV PRN (04:36)
[2018-05-13] MEDS: AMIODARONE 450 MG in DEXTROSE 5% IN WATER 250 ML IV SCH ×6 (05:07→22:21)
[2018-05-13 06:53] LABS: Glucose,Whole Blood 186 mg/dL (75-99)
[2018-05-13 07:03] LABS: ABG Base Excess 11.3 mmol/L; ABG HCO3 36 mmol/L (21-25); ABG Oxygen Saturation 99.2 % (94-97); ABG PCO2 60 mmHg (35-45); ABG PH 7.39 (7.35-7.45); ABG PO2 124 mmHg (83-108); ABG TCO2 38 mmol/L (19-24)
[2018-05-13] MEDS: INSULIN ASPART 100 UNIT/ML 1 ML 10 ML VIAL SQ SCH ×4 (07:04→22:22)
[2018-05-13] MEDS ORDERED: VANCOMYCIN 1,500 MG in SODIUM CHLORIDE 0.9% 250 ML IVPB SCH (08:00)
--- NOTE | 2018-05-13 08:30 | XR ---
EXAMINATION TYPE: XR chest 1V portable DATE OF EXAM: 05/13/2018 COMPARISON: 05/12/2018 HISTORY: Tube placement. Ventilatory dependent respiratory failure. TECHNIQUE: Single frontal view of the chest is obtained. FINDINGS: Endotracheal tube and enteric tube are similar in position as is the right-sided internal jugular central venous catheter terminating in the high right atrium. There is redemonstration of car diomegaly, retrocardiac airspace disease, obscuration of the left hemidiaphragm and costophrenic angl e, and mild pulmonary vascular congestion. There is new haziness of the right hemidiaphragm likely re presenting a trace right pleural effusion. There is improved aeration of the right upper lung. IMPRESSION: 1. Improved aeration of the right upper lung. 2. Haziness of the right hemidiaphragm likely represents a new trace right pleural effusion. Persiste nt retrocardiac opacity is favored to represent a small pleural effusion and left basilar atelectasis . 3. Overall stable lines and tubes.
[2018-05-13] MEDS: GENTAMICIN 0.1% CREAM 15 GM TUBE TOPICAL SCH ×3 (09:07→22:13)
[2018-05-13] MEDS: PANTOPRAZOLE 40 MG/10 ML VIAL IV SCH (09:09)
[2018-05-13] MEDS: CHLORHEXIDINE GLUCONATE 15 ML CUP MUCOUS MEM SCH ×2 (09:10→20:53)
[2018-05-13] MEDS: ASPIRIN 325 MG TAB PO SCH (09:11)
[2018-05-13] MEDS ORDERED: VANCOMYCIN IV PER PHARMACY 1 EACH MISC MISCELLANE PRN (10:38)
[2018-05-13] MEDS ORDERED: SODIUM CHLORIDE 0.9% 500 ML IV ONE (11:03)
--- NOTE | 2018-05-13 11:41 | CDI ---
Last Revision, September 2017 Documentation Clarification Form Date: 05/12/2018 3:05:00 PM From: Sonia Parnell RN Admit Date: 05/11/2018 4:55:00 PM Patient Name: Shirley Ayers Visit Number: [id number] ATTENTION: The Clinical Documentation Specialists (CDI) and [facility] Coding Staff appreciate your assistance in clarifying documentation. Please respond to the clarification below the line at the bottom and electronically sign. The CDI & [facility] Coding staff will review the response and follow-up if needed. Please note: Queries are made part of the Legal Health Record. If you have any questions, please contact the author of this message via ITS. Dr. Suhail Ruiz MD, (Second request), Can you please render your opinion on the following? Presented with SOB. Admitted with acute on chronic hypoxic respiratory failure due to pulmonary edema Acute diastolic chf exacerbation, requiring intubation. History/Risk Factors: CKD 3, DM 2 CHF, COPD, 3L HOME O2, chronic a fib, c diff, depression, x smoker Clinical Indicators: Vital Signs on admission: T 97.9, P 90, R 28, 94% BIPAP WBC on admission: 13.7 Urinalysis on admission: cloudy, +1 protein, trace leukocyte esterase, occasional Amorphous Sediment, Hyaline casts 102, Mucus rare, urine bacteria rare Urine Culture: in progress Consult on 05/12 states " urine showed pyuria and bacteruria suggestive of urinary tract infection. Treatment: Antibiotics : Aztreonam IVPB, Vanco IVPB Please document the condition that these clinical indicators signify, whether Present on Admission, and cause if known: UTI ruled in UTI ruled out With Sepsis If due to catheter, device or implant, please document Specify organism, if known Other, please specify Unable to determine Present on Admission: Yes No Please continue to document in your progress notes, under the line below and/or in the discharge summary in order to capture severity of illness and risk of mortality. Include clinical findings that support your diagnosis. See todays progress note. Antibiotics started empiricaly, unable to determine if UTI/sepsis present at this time, all cultures negative. MTDD
--- NOTE | 2018-05-13 11:47 | PN ---
PROGRESS NOTE This patient is admitted with acute respiratory failure. The patient has underlying severe COPD and echocardiogram shows cardiomyopathy with ejection fraction of 30% to 35%. The patient's chest x-ray yesterday was suggestive of congestive cardiac failure. The patient's urine output is only 10 to 15 mL/hour during the night and the creatinine is increased to 2.39. Chest x-ray this morning shows evidence of congestive cardiac failure is improving. Patient currently is on Levophed about 5 mcg. Patient's blood pressure is 95/63 mmHg. Heart rate is 100 to 120 per minute. First and second heart sounds are normal. Lung examination reveals bilateral scattered wheezes. Abdomen is soft. Extremities, there is 1+ pedal edema. FINAL IMPRESSION: 1. This patient is admitted with acute respiratory failure. 2. The patient has had acute on chronic renal failure. 3. Cardiomyopathy with moderate to severely impaired left ventricular systolic function with evidence of congestive cardiac failure. The patient's condition remains guarded. Discussed the condition with Dr. Laws as well as Dr. Lewis. We will try her on a small dose of dobutamine to see whether can be increased in the cardiac output and the renal perfusion. Continue Lasix drip at 10 mg/hour and we will discuss with Dr. Lewis that it can be increased to 20 mg/hour. MMODL / IJN: [id number] /
[2018-05-13 12:35] LABS: Glucose,Whole Blood 149 mg/dL (75-99)
--- NOTE | 2018-05-13 12:58 | P.CONS ---
History of Present Illness - Reason for Consult Consult date: 05/13/18 C. difficile colitis, multiple decubitus ulcers - History of Present Illness This is a 67-year-old morbidly obese female that came into the emergency center yesterday with shortness of breath and lethargy. Patient apparently has been bedbound for the past 3 weeks due to shortness of breath. Patient has not been eating very much and also had diarrhea. She was treated outpatient with deficit and completed the course and was then placed on antidiarrheal agent. She was admitted 2 months ago at [facility] for heart failure. She required intubation in the emergency center. She was also found to have atrial fibrillation with RVR is currently on amiodarone drip. Cardiology is following. Nephrology is also following for acute kidney injury with BUN 44 and creatinine 2.59. Patient presented with leukocytosis but afebrile. Troponins were mildly elevated at 0.046, 0.049, 0.047. Albumin 2.6, TSH 1.550. C. difficile toxin was negative. Urinalysis was cloudy, leukoesterase large, WBC 33 and bacteria rare. Blood issuing no growth at 24 hours and urine culture is in progress. Patient is currently on norepinephrine, Lasix drip, amiodarone drip, heparin drip and sedation. He guarding antibiotics patient is on Azactam and vancomycin. Initial x-ray shows mild cardiomegaly and interstitial prominence. Correlate for heart failure and mild pulmonary vascular congestion. Small to moderate left and trace left pleural effusions with adjacent atelectasis and/or consolidation. Repeat chest x-ray this morning reveals improved aeration of the right upper lung. Haziness of the right hemidiaphragm likely represents a new trace right pleural effusion. Persistent retrocardiac obesity is favored to represent a small pleural effusion and left basilar atelectasis. Overall stable lines and tubes. Echocardiogram reveals EF of 3035%, moderate concentric left ventricular hypertrophy, elderly severely dilated, mild mitral regurgitation, moderate tricuspid regurgitation, moderate pulmonary hypertension. Regarding wounds, patient has stage II decubitus ulcer on the right buttocks, left hip and the shear-type injury to the right hip area there is mild cellulitis to the left pretibial area. Patient's bowel movements are currently soft. Review of Systems ROS unobtainable: due to mental status Past Medical History Past Medical History: Atrial Fibrillation, Coronary Artery Disease (CAD), Heart Failure, COPD, GERD/Reflux, Respiratory Disorder Additional Past Medical History / Comment(s): Chronic Afib, CKD stage III recently diagnosed, NIDDM type II, chronic CO2 retainer, chronic respiratory failure with home O2 at 3L/NC during day and bipap at night, severe GERD, recent diarrhea (past 2 weeks and other family members with diarrhea), current lower extremity cellulitis, current bilateral hip decubitus recently increased to stage II, EF in April 2018 55%, HTN and was on med briefly but did not tolerate even low dose without going hypotensive, anemia, chronic pain- DDD/( sciatica in past), R shoulder/upper arm pain, back pain, bilateral knee pain and recent neck pain, wheelchair bound mostly-able to take couple steps but past 5 days has been bedbound. History of Any Multi-Drug Resistant Organisms: None Reported Year Discovered:: 05/06/18 Past Surgical History: Appendectomy, Orthopedic Surgery, Tonsillectomy Additional Past Surgical History / Comment(s): finger surgery d/t chainsaw accident (unknown which finger) Past Anesthesia/Blood Transfusion Reactions: No Reported Reaction Smoking Status: Former smoker - Past Family History Mother Family Medical History: Cancer, CVA/TIA, GI Bleed, Hypertension Additional Family Medical History / Comment(s): Upper GI bleed/ulcers. Father History Unknown: Yes Additional Family Medical History / Comment(s): Father just before pt was born in an employment accident. Medications and Allergies Home Medications Medication Instructions Recorded Confirmed Type Acetaminophen [Tylenol Extra 1,000 mg PO Q6H PRN 05/11/18 05/11/18 History Strength] Albuterol Inhaler [Ventolin Hfa 1 - 2 puff INHALATION RT-Q6H PRN 05/11/18 History Inhaler] Albuterol Nebulized [Ventolin 1.25 mg INHALATION RT-DAILY PRN 05/11/18 05/11/18 History Nebulized] Aspirin 325 mg PO DAILY 05/11/18 05/11/18 History DULoxetine HCL [Cymbalta] 30 mg PO DAILY 05/11/18 05/11/18 History Diclofenac Sodium [Voltaren Gel] 2 gram TOPICAL QID 05/11/18 05/11/18 History Fidaxomicin [Dificid] 400 mg PO BID 05/11/18 05/11/18 History Fluticasone Nasal [place] [Flonase 2 spr EA NOSTRIL DAILY 05/11/18 05/11/18 History Nasal [place]] Fluticasone/Salmeterol [Advair 1 inhalation PO RT-BID 05/11/18 05/11/18 History 250-50 Diskus] Furosemide [Lasix] 40 mg PO BID 05/11/18 05/11/18 History Gentamicin 0.1% Cream 1 applic TOPICAL TID 05/11/18 05/11/18 History Ibuprofen [Motrin Ib] 400 mg PO Q6H PRN 05/11/18 05/11/18 History Ipratropium Nebulized [Atrovent 0.5 mg INHALATION RT-QID 05/11/18 05/11/18 History Nebulized] Metolazone [Zaroxolyn] 5 mg PO DAILY 05/11/18 05/11/18 History Montelukast [Singulair] 10 mg PO DAILY 05/11/18 05/11/18 History Ondansetron [Zofran] 4 mg PO Q8HR PRN 05/11/18 05/11/18 History Spironolactone [Aldactone] 50 mg PO DAILY@1200 05/11/18 05/11/18 History Sucralfate [Carafate] 1 gm PO QID 05/11/18 05/11/18 History Umeclidinium Brm/Vilanterol Tr 1 puff INHALATION DAILY 05/11/18 05/11/18 History [Anoro Ellipta 62.5-25 Mcg INH] guaiFENesin [Mucinex] 1,200 mg PO Q12HR 05/11/18 05/11/18 History metFORMIN HCL [Glucophage] 500 mg PO DAILY 05/11/18 05/11/18 History Allergies Allergy/AdvReac Type Severity Reaction Status Date / Time acetaminophen [From Imogene] Allergy Unknown Verified 05/11/18 14:54 banana Allergy Unknown Verified 05/11/18 14:54 hydrocodone Allergy Unknown Verified 05/11/18 14:54 levofloxacin Allergy Unknown Verified 05/11/18 14:54 Penicillins Allergy Unknown Verified 05/11/18 14:54 tomato Allergy Unknown Verified 05/11/18 14:54 Physical Exam Vitals: Vital Signs Temp Pulse Resp BP Pulse Ox 05/13/18 09:15 104 H 17 100 05/13/18 09:00 104 H 0 L 100 05/13/18 08:45 104 H 0 L 100 05/13/18 08:30 117 H 18 100 05/13/18 08:15 106 H 18 100 05/13/18 08:00 98.2 F 115 H 18 100 05/13/18 07:49 106 H 18 05/13/18 07:45 106 H 18 100 05/13/18 07:32 107 H 18 05/13/18 07:30 111 H 18 99 05/13/18 07:15 121 H 17 100 05/13/18 07:00 122 H 18 100 05/13/18 06:45 114 H 18 100 05/13/18 06:30 115 H 18 100 05/13/18 06:15 117 H 18 100 05/13/18 06:00 103 H 18 100 05/13/18 05:45 118 H 18 100 05/13/18 05:30 120 H 18 100 05/13/18 05:15 118 H 18 100 05/13/18 05:00 130 H 18 100 05/13/18 04:45 110 H 18 100 05/13/18 04:30 109 H 18 100 05/13/18 04:15 122 H 19 100 05/13/18 04:00 97.7 F 122 H 18 100 05/13/18 03:45 110 H 18 100 05/13/18 03:30 134 H 18 100 05/13/18 03:24 110 H 05/13/18 03:15 136 H 19 100 05/13/18 03:00 128 H 18 100 05/13/18 02:45 112 H 18 100 05/13/18 02:30 118 H 18 100 05/13/18 02:15 131 H 18 100 05/13/18 02:00 112 H 18 100 05/13/18 01:45 120 H 18 100 05/13/18 01:30 114 H 18 100 05/13/18 01:15 117 H 18 100 05/13/18 01:00 114 H 18 100 05/13/18 00:45 124 H 18 100 05/13/18 00:30 134 H 18 100 05/13/18 00:15 134 H 18 100 05/13/18 00:00 97.7 F 110 H 18 100 05/12/18 23:45 126 H 18 100 05/12/18 23:30 125 H 19 100 05/12/18 23:15 136 H 18 100 05/12/18 23:00 116 H 18 100 05/12/18 22:45 129 H 19 100 05/12/18 22:30 106 H 18 100 05/12/18 22:15 133 H 18 100 05/12/18 22:00 127 H 18 100 05/12/18 21:45 115 H 20 100 05/12/18 21:30 139 H 19 100 05/12/18 21:15 131 H 18 100 05/12/18 21:00 135 H 18 100 05/12/18 20:58 124 H 18 100 05/12/18 20:45 109 H 19 100 05/12/18 20:30 130 H 19 100 05/12/18 20:15 130 H 18 99 05/12/18 20:00 131 H 18 100 05/12/18 19:57 114 H 05/12/18 19:45 97.7 F 130 H 18 100 05/12/18 19:41 116 H 05/12/18 19:30 126 H 18 100 05/12/18 19:15 120 H 18 100 05/12/18 19:00 115 H 18 93/68 100 05/12/18 18:30 122 H 18 93/68 100 05/12/18 18:00 134 H 18 93/68 99 05/12/18 17:30 17 100 05/12/18 17:00 115 H 18 100 05/12/18 16:30 137 H 18 100 05/12/18 16:19 119 H 05/12/18 16:00 98.3 F 120 H 18 100 05/12/18 15:52 113 H 05/12/18 15:30 122 H 17 94/54 100 05/12/18 15:00 135 H 18 94/54 100 05/12/18 14:30 96 18 94/54 100 05/12/18 14:00 119 H 18 94/54 100 05/12/18 13:30 102 H 18 93/69 100 05/12/18 13:00 122 H 17 92/65 99 05/12/18 12:30 128 H 17 95/59 98 05/12/18 12:00 98.5 F 102 H 18 93/67 99 05/12/18 11:47 100 18 05/12/18 11:31 119 H 18 05/12/18 11:30 127 H 20 116/64 99 05/12/18 11:00 142 H 31 H 116/71 99 05/12/18 10:30 120 H 17 70/63 100 Intake and Output 05/12/18 05/13/18 05/13/18 22:59 06:59 14:59 Intake Total 2043.496 5861.434 340 Output Total 174 163 56 Balance 9768.530 2488.434 284 Intake: IV 680 240 340 Furosemide 250 mg In 20 80 30 Sodium Chloride 0.9% 225 ml @ 10 MG/HR 10 mls/hr IVP .Q24H [facility] Rx#: [id number] Sodium Chloride 0.9% 1, 160 160 60 000 ml @ 20 mls/hr IV . Q24H [facility] Rx#:[id number] vancomycin 500 250 Intake, IV Titration 544.689 631.434 Amount Amiodarone 450 mg In 236.356 Dextrose 5% in Water 250 ml @ 1 MG/MIN 33.33 mls/ hr IV .Q7H31M [facility] Rx#: [id number] Amiodarone 450 mg In 228.866 Dextrose 5% in Water 250 ml @ 1 MG/MIN 33.33 mls/ hr IV .Q7H31M [facility] Rx#: [id number] Heparin Sod,Pork in 0.45% 108.333 208 NaCl 25,000 unit In 0.45 % NaCl 1 500ml.bag @ 9.8 UNITS/KG/HR 21.91 mls/hr IV .[id number] [facility] Rx#: [id number] Norepinephrine 16 mg In 104.268 Dextrose 5% in Water 250 ml @ Titrate IV .Q0M [facility] Rx#:[id number] Propofol 1,000 mg In 200 90.3 Empty Bag 1 bag @ Titrate IV .Q0M [facility] Rx#: [id number] Tube Feeding 100 248 Other 30 60 Output: Urine 174 163 56 Other: Voiding Method Indwelling Catheter Indwelling Catheter # Bowel Movements 1 Weight 111.811 kg ABP, PAP, CO, CI - Last 8 Hours Arterial Blood Pressure 101/65 Arterial Blood Pressure 88/57 Arterial Blood Pressure 89/54 Arterial Blood Pressure 97/65 Arterial Blood Pressure 100/66 Arterial Blood Pressure 103/67 Arterial Blood Pressure 100/68 Arterial Blood Pressure 107/67 Arterial Blood Pressure 101/68 Arterial Blood Pressure 105/65 Arterial Blood Pressure 102/67 Arterial Blood Pressure 104/68 Arterial Blood Pressure 96/64 Arterial Blood Pressure 101/68 Arterial Blood Pressure 102/67 Arterial Blood Pressure 97/65 Arterial Blood Pressure 110/65 Arterial Blood Pressure 111/69 Arterial Blood Pressure 101/68 Arterial Blood Pressure 103/71 Arterial Blood Pressure 104/70 Arterial Blood Pressure 96/62 Arterial Blood Pressure 117/75 Arterial Blood Pressure 108/67 Arterial Blood Pressure 107/67 Arterial Blood Pressure 103/68 Arterial Blood Pressure 105/65 Arterial Blood Pressure 100/65 Gen: This is a morbidly obese 67-year-old female. Patient is intubated on mechanical ventilation and sedated. She appears to be comfortable and in no acute distress. HEENT: Head is atraumatic, normocephalic. Pupils equal, round. Sclerae is anicteric. Conjunctiva slightly pale. Mucous members of the mouth are dry. Oral gastric tube and ET tube in place. NECK: Supple. No JVD. No lymphadenopathy. No thyromegaly. LUNGS: Diminished bilaterally. No intercostal retractions. HEART: Irregularly irregular rate and rhythm. No murmur. ABDOMEN: Currently obese. Soft. Bowel sounds are present. No masses. No tenderness. No significant redness under her abdominal fold or breast. InterDry and nystatin powder in place. EXTREMITIES: Jared bilateral pedal edema. Waffle-type boots in place. There is erythema to the left pretibial area. NEUROLOGICAL: Patient is sedated. Results Results: Laboratory Results WBC 18.7 k/uL (3.8-10.6) H 05/13/18 03:40 RBC 3.47 m/uL (3.80-5.40) L 05/13/18 03:40 Hgb 8.8 gm/dL (11.4-16.0) L 05/13/18 03:40 Hct 29.7 % (34.0-46.0) L 05/13/18 03:40 MCV 85.4 fL (80.0-100.0) 05/13/18 03:40 MCH 25.3 pg (25.0-35.0) 05/13/18 03:40 MCHC 29.6 g/dL (31.0-37.0) L 05/13/18 03:40 RDW 18.5 % (11.5-15.5) H 05/13/18 03:40 Plt Count 561 k/uL (150-450) H 05/13/18 03:40 Neutrophils % 89 % 05/13/18 03:40 Lymphocytes % 5 % 05/13/18 03:40 Monocytes % 6 % 05/13/18 03:40 Eosinophils % 0 % 05/13/18 03:40 Basophils % 0 % 05/13/18 03:40 Neutrophils # 16.6 k/uL (1.3-7.7) H 05/13/18 03:40 Lymphocytes # 0.8 k/uL (1.0-4.8) L 05/13/18 03:40 Monocytes # 1.1 k/uL (0-1.0) H 05/13/18 03:40 Eosinophils # 0.0 k/uL (0-0.7) 05/13/18 03:40 Basophils # 0.0 k/uL (0-0.2) 05/13/18 03:40 Hypochromasia Marked 05/13/18 03:40 Poikilocytosis Slight 05/11/18 15:00 Anisocytosis Slight 05/13/18 03:40 PT 11.2 sec (9.0-12.0) 05/11/18 15:00 INR 1.2 (<1.2) H 05/11/18 15:00 APTT 87.5 sec (22.0-30.0) H 05/13/18 11:10 D-Dimer 0.57 mg/L FEU (<0.60) 05/11/18 15:00 Sample Site a line 05/13/18 07:01 ABG pH 7.39 (7.35-7.45) 05/13/18 07:01 ABG pCO2 60 mmHg (35-45) H 05/13/18 07:01 ABG pO2 124 mmHg (83-108) H 05/13/18 07:01 ABG HCO3 36 mmol/L (21-25) H 05/13/18 07:01 ABG Total CO2 38 mmol/L (19-24) H 05/13/18 07:01 ABG O2 Saturation 99.2 % (94-97) H 05/13/18 07:01 ABG Base Excess 11.3 mmol/L 05/13/18 07:01 Juancarlos Test Yes 05/13/18 07:01 FiO2 45 % 05/13/18 07:01 Sodium 132 mmol/L (137-145) L 05/13/18 03:40 Potassium 4.0 mmol/L (3.5-5.1) 05/13/18 03:40 Chloride 91 mmol/L (98-107) L 05/13/18 03:40 Carbon Dioxide 36 mmol/L (22-30) H 05/13/18 03:40 Anion Gap 5 mmol/L 05/13/18 03:40 BUN 44 mg/dL (7-17) H 05/13/18 03:40 Creatinine 2.59 mg/dL (0.52-1.04) H 05/13/18 03:40 Est GFR (CKD-EPI)AfAm 22 (>60 ml/min/1.73 sqM) 05/13/18 03:40 Est GFR (CKD-EPI)NonAf 19 (>60 ml/min/1.73 sqM) 05/13/18 03:40 Glucose 167 mg/dL (74-99) H 05/13/18 03:40 POC Glucose (mg/dL) 149 mg/dL (75-99) H 05/13/18 12:33 POC Glu Data Systems Analyst ID Ritika Bustillo 05/13/18 12:33 Plasma Lactic Acid Terence 1.9 mmol/L (0.7-2.0) 05/11/18 15:00 Calcium 8.0 mg/dL (8.4-10.2) L 05/13/18 03:40 Phosphorus 5.8 mg/dL (2.5-4.5) H 05/13/18 03:40 Magnesium 2.3 mg/dL (1.6-2.3) 05/13/18 03:40 Total Bilirubin 0.4 mg/dL (0.2-1.3) 05/11/18 15:00 AST 16 U/L (14-36) 05/11/18 15:00 ALT 30 U/L (9-52) 05/11/18 15:00 Alkaline Phosphatase 128 U/L (38-126) H 05/11/18 15:00 Total Creatine Kinase 40 U/L (30-135) 05/11/18 15:00 CK-MB (CK-2) 1.2 ng/mL (0.0-2.4) 05/11/18 15:00 CK-MB (CK-2) Rel Index 3.0 05/11/18 15:00 Troponin I 0.047 ng/mL (0.000-0.034) H* 05/12/18 03:06 NT-Pro-B Natriuret Pep 5490 pg/mL 05/11/18 15:00 Total Protein 4.9 g/dL (6.3-8.2) L 05/11/18 15:00 Albumin 2.6 g/dL (3.5-5.0) L 05/11/18 15:00 TSH 1.550 mIU/L (0.465-4.680) 05/11/18 22:44 Urine Color Yellow 05/11/18 23:45 Urine Appearance Cloudy (Clear) H 05/11/18 23:45 Urine pH 5.0 (5.0-8.0) 05/11/18 23:45 Ur Specific [place] 1.012 (1.001-1.035) 05/11/18 23:45 Urine Protein Negative (Negative) 05/11/18 23:45 Urine Glucose (UA) Negative (Negative) 05/11/18 23:45 Urine Ketones Negative (Negative) 05/11/18 23:45 Urine Blood Negative (Negative) 05/11/18 23:45 Urine Nitrite Negative (Negative) 05/11/18 23:45 Urine Bilirubin Negative (Negative) 05/11/18 23:45 Urine Urobilinogen <2.0 mg/dL (<2.0) 05/11/18 23:45 Ur Leukocyte Esterase Large (Negative) H 05/11/18 23:45 Urine RBC 2 /hpf (0-5) 05/11/18 23:45 Urine WBC 33 /hpf (0-5) H 05/11/18 23:45 Ur Squamous Epith Cells <1 /hpf (0-4) 05/11/18 23:45 Amorphous Sediment Rare /hpf (None) H 05/11/18 23:45 Urine Bacteria Rare /hpf (None) H 05/11/18 23:45 Hyaline Casts 49 /lpf (0-2) H 05/11/18 23:45 Urine Mucus Rare /hpf (None) H 05/11/18 23:45 C. difficile (EIA) Intrp Negative (Negative) 05/12/18 08:53 CBC & Chem 7: 05/13/18 03:40 05/13/18 03:40 Labs: Abnormal Lab Results - Last 24 Hours (Table) 05/12/18 05/12/18 05/12/18 Range/Units 12:09 17:12 19:07 WBC (3.8-10.6) k/uL RBC (3.80-5.40) m/uL Hgb (11.4-16.0) gm/dL Hct (34.0-46.0) % MCHC (31.0-37.0) g/dL RDW (11.5-15.5) % Plt Count (150-450) k/uL Neutrophils # (1.3-7.7) k/uL Lymphocytes # (1.0-4.8) k/uL Monocytes # (0-1.0) k/uL APTT 47.1 H (22.0-30.0) sec ABG pCO2 (35-45) mmHg ABG pO2 (83-108) mmHg ABG HCO3 (21-25) mmol/L ABG Total CO2 (19-24) mmol/L ABG O2 Saturation (94-97) % Sodium (137-145) mmol/L Chloride (98-107) mmol/L Carbon Dioxide (22-30) mmol/L BUN (7-17) mg/dL Creatinine (0.52-1.04) mg/dL Glucose (74-99) mg/dL POC Glucose (mg/dL) 137 H 189 H (75-99) mg/dL Calcium (8.4-10.2) mg/dL Phosphorus (2.5-4.5) mg/dL 05/12/18 05/13/18 05/13/18 Range/Units 21:41 00:02 03:40 WBC 18.7 H (3.8-10.6) k/uL RBC 3.47 L (3.80-5.40) m/uL Hgb 8.8 L (11.4-16.0) gm/dL Hct 29.7 L (34.0-46.0) % MCHC 29.6 L (31.0-37.0) g/dL RDW 18.5 H (11.5-15.5) % Plt Count 561 H (150-450) k/uL Neutrophils # 16.6 H (1.3-7.7) k/uL Lymphocytes # 0.8 L (1.0-4.8) k/uL Monocytes # 1.1 H (0-1.0) k/uL APTT (22.0-30.0) sec ABG pCO2 (35-45) mmHg ABG pO2 (83-108) mmHg ABG HCO3 (21-25) mmol/L ABG Total CO2 (19-24) mmol/L ABG O2 Saturation (94-97) % Sodium (137-145) mmol/L Chloride (98-107) mmol/L Carbon Dioxide (22-30) mmol/L BUN (7-17) mg/dL Creatinine (0.52-1.04) mg/dL Glucose (74-99) mg/dL POC Glucose (mg/dL) 165 H 163 H (75-99) mg/dL Calcium (8.4-10.2) mg/dL Phosphorus (2.5-4.5) mg/dL 05/13/18 05/13/18 05/13/18 Range/Units 03:40 03:40 06:51 WBC (3.8-10.6) k/uL RBC (3.80-5.40) m/uL Hgb (11.4-16.0) gm/dL Hct (34.0-46.0) % MCHC (31.0-37.0) g/dL RDW (11.5-15.5) % Plt Count (150-450) k/uL Neutrophils # (1.3-7.7) k/uL Lymphocytes # (1.0-4.8) k/uL Monocytes # (0-1.0) k/uL APTT 43.3 H (22.0-30.0) sec ABG pCO2 (35-45) mmHg ABG pO2 (83-108) mmHg ABG HCO3 (21-25) mmol/L ABG Total CO2 (19-24) mmol/L ABG O2 Saturation (94-97) % Sodium 132 L (137-145) mmol/L Chloride 91 L (98-107) mmol/L Carbon Dioxide 36 H (22-30) mmol/L BUN 44 H (7-17) mg/dL Creatinine 2.59 H (0.52-1.04) mg/dL Glucose 167 H (74-99) mg/dL POC Glucose (mg/dL) 186 H (75-99) mg/dL Calcium 8.0 L (8.4-10.2) mg/dL Phosphorus 5.8 H (2.5-4.5) mg/dL 05/13/18 Range/Units 07:01 WBC (3.8-10.6) k/uL RBC (3.80-5.40) m/uL Hgb (11.4-16.0) gm/dL Hct (34.0-46.0) % MCHC (31.0-37.0) g/dL RDW (11.5-15.5) % Plt Count (150-450) k/uL Neutrophils # (1.3-7.7) k/uL Lymphocytes # (1.0-4.8) k/uL Monocytes # (0-1.0) k/uL APTT (22.0-30.0) sec ABG pCO2 60 H (35-45) mmHg ABG pO2 124 H (83-108) mmHg ABG HCO3 36 H (21-25) mmol/L ABG Total CO2 38 H (19-24) mmol/L ABG O2 Saturation 99.2 H (94-97) % Sodium (137-145) mmol/L Chloride (98-107) mmol/L Carbon Dioxide (22-30) mmol/L BUN (7-17) mg/dL Creatinine (0.52-1.04) mg/dL Glucose (74-99) mg/dL POC Glucose (mg/dL) (75-99) mg/dL Calcium (8.4-10.2) mg/dL Phosphorus (2.5-4.5) mg/dL Microbiology - Last 24 Hours (Table) 05/11/18 15:00 Blood Culture - Preliminary Blood No Growth after 24 hours 05/11/18 23:45 Urine Culture - Preliminary Urine,Catheterized Assessment and Plan Plan: This is a 67-year-old woman who presented with acute on chronic hypoxic and hypercapnic respiratory failure secondary to acute systolic heart failure and acute exacerbation of COPD. Patient also presented with A. fib with RVR with known history of chronic atrial fibrillation currently on amiodarone drip, possible sepsis with septic shock requiring vasopressors, acute kidney injury with chronic kidney disease stage III, decubitus ulcers to the right buttocks, left hip, shear injury to the right hip, mild cellulitis left lower extremity. Patient is currently on Azactam and vancomycin which will be continued. Continue supportive care. Further recommendations as patient progresses. The above dictated assessment and findings were discussed with Dr. Bland. The impression and plan of care have been directed as dictated. Mine Gonzalez nurse practitioner acting as scribe for Dr. Bland.
[2018-05-13 13:09] LABS: Glucose,Whole Blood 155 mg/dL (75-99)
[2018-05-13] MEDS: FUROSEMIDE 250 MG in SODIUM CHLORIDE 0.9% 225 ML IVP SCH (14:27)
--- NOTE | 2018-05-13 14:45 | P.PN ---
Subjective Progress Note Date: 05/13/18 This is a 67-year-old female with history of multiple medical problems including chronic hypercapnic respiratory failure, obstructive sleep apnea syndrome, COPD, patient is on home oxygen at 3 L, she is also on BiPAP and seems to be nocturnally BiPAP dependent. Patient is also known to have history of chronic atrial fibrillation, chronic decubitus ulcers, superficial leg ulcers , patient has a visiting nurse taking care of her ulcers and chronic wounds. She was noted by the visiting nurse to be dyspneic, for at least 24 hours prior to presentation. Patient has been using oxygen at home, BiPAP, and she is also on updrafts in the form of DuoNeb. Considering the patient was not noticing significant improvement, patient was advised to come to the ER. Upon arrival to the ER, patient was noted to be quite dyspneic, and did not improve much with BiPAP. Hence she was intubated by Dr. Steve Roberts, placed on mechanical ventilation, admitted to the ICU and this consult was initiated. Presently the patient is on the following ventilator settings tidal volume of 400 assist control rate of 18 FiO2 of 50% and PEEP of 5. She is in atrial fibrillation with RVR, placed on amiodarone to replace Cardizem as per cardiology. Her echocardiogram showed severe ventricular dysfunction ejection fraction of 30-35% . Hence the patient was placed on Lasix drip. Chest x-ray did show evidence of pulmonary edema. Echocardiogram also showed evidence of moderate pulmonary hypertension with a right-sided pressures in the range of 50. Patient was recently diagnosed as having C. difficile colitis, and has been on deficid on outpatient basis. ABG this morning showed a pO2 of 109 pCO2 of 60 pH of 7.43, hence I cut down the FiO2 to 45%. And I kept the same ventilator settings are unchanged. Renal functioning was noted to be abnormal creatinine is 1.90 BUN is 39 however the patient is known to have history of chronic kidney disease stage III. ProBNP level was noted to be elevated over 5500. Troponin was borderline elevated. Urine showed pyuria and bacteriuria suggestive of urinary tract infection. Patient was empirically placed on aztreonam and vancomycin. Infectious disease consultation was also initiated. On today's evaluation of 05/13/2018 I'm seeing this patient for a follow-up. The patient is sedated with Diprivan at 30 g per KG pigmented. The patient is calm and comfortable. She remains on a mechanical ventilator on assist control mode at the rate of 18, tidal volume of 400, FiO2 of 45% and a PEEP of 5. The pH is at 7.39 with a pCO2 of 60 and pO2 of 124. The peak airway pressures around 33-34 and the static airway pressures around 17. Chest x-ray shows shows improved aeration of the right upper lobe. There is haziness along the right hemidiaphragm possibly related to some trace bilateral pleural effusion and atelectatic changes in lung bases. ET tube is in a good location. There is also a right IJ triple-lumen catheter in place. Hemodynamically, the patient is still requiring pressors. This morning she was and 6 mics of norepinephrine infusion for blood pressure control. At the same time the patient was in atrial fibrillation with slight tachycardia and the heart rate was in the low 100s range. The patient was started on amiodarone and the patient was being loaded and she was on 1 mg/m of an amiodarone drip. At the same time, the patient is on Lasix drip at the dose of 10 mg an hour. CVP was checked and was at 16. The patient was afebrile. The patient had an echocardiogram that showed an ejection fraction of 30-35% consistent with moderate severe LV dysfunction. The symptom the patient moderate concentric left ventricular hypertrophy, as he was severely dilated, there is moderate degree of pulmonary hypertension with a PA pressure of around 49. The urine output was in the order of 20 mL an hour. Her net fluid balance is +3.6 L yesterday. The renal function remains impaired and the creatinine is at 2.59 consistent with acute on top of chronic renal failure. She is currently receiving tube feeds which is also at goal. Stool for C. diff was negative. The patient is on empiric antibiotic coverage with IV aztreonam and vancomycin. The choice of aztreonam was made due to concern of an underlying urine checked infection knowing that the patient's UA was abnormal at the time of admission. There is questionable cirrhotic changes in the left lower extremity and the patient is covered with vancomycin. No open wounds or sores are than stage II ulcer in the back and buttock area. Objective - Vital Signs Vital signs: Vital Signs Temp 98.1 F 05/13/18 12:00 Pulse 117 H 05/13/18 14:15 Resp 18 05/13/18 14:15 BP 93/71 05/13/18 14:15 Pulse Ox 100 05/13/18 14:15 Intake & Output 05/12/18 05/13/18 05/13/18 18:59 06:59 18:59 Intake Total 2351.625 6060.063 5006.331 Output Total 162 252 226 Balance 2189.625 1493.790 961.331 Weight 105 kg 111.811 kg Intake: IV 1740 340 460 0.9 NACL bolus 1000 Furosemide 250 mg In 100 70 Sodium Chloride 0.9% 225 ml @ 10 MG/HR 10 mls/hr IVP .Q24H [facility] Rx#: [id number] Sodium Chloride 0.9% 1, 240 240 140 000 ml @ 20 mls/hr IV . Q24H [facility] Rx#:[id number] vancomycin 500 250 Intake, IV Titration 611.625 967.790 699.331 Amount Amiodarone 450 mg In 236.356 Dextrose 5% in Water 250 ml @ 1 MG/MIN 33.33 mls/ hr IV .Q7H31M [facility] Rx#: [id number] Amiodarone 450 mg In 228.866 250 Dextrose 5% in Water 250 ml @ 1 MG/MIN 33.33 mls/ hr IV .Q7H31M [facility] Rx#: [id number] Diltiazem 50 mg In Sodium 50 Chloride 0.9% 40 ml @ 5 MG/HR 5 mls/hr IV .Q10H [facility] Rx#:[id number] Furosemide 250 mg In 248 Sodium Chloride 0.9% 225 ml @ 10 MG/HR 10 mls/hr IVP .Q24H [facility] Rx#: [id number] Heparin Sod,Pork in 0.45% 196.000 208 189.831 NaCl 25,000 unit In 0.45 % NaCl 1 500ml.bag @ 9.8 UNITS/KG/HR 21.91 mls/hr IV .[id number] [facility] Rx#: [id number] Norepinephrine 16 mg In 104.268 11.5 Dextrose 5% in Water 250 ml @ Titrate IV .Q0M [facility] Rx#:[id number] Norepinephrine 4 mg In 165.625 Dextrose 5% in Water 250 ml @ Titrate IV .Q0M [facility] Rx#:[id number] Propofol 1,000 mg In 200.000 190.3 Empty Bag 1 bag @ Titrate IV .Q0M [facility] Rx#: [id number] Tube Feeding 348 28 Other 90 Output: Urine 162 252 226 Other: Voiding Method Indwelling Catheter Indwelling Catheter Indwelling Catheter # Bowel Movements 1 1 ABP, PAP, CO, CI - Last Documented Arterial Blood Pressure 96/68 - Exam Gen. appearance obese, comfortable likely distress sedated intubated on a mechanical ventilator. 6 was with the mechanical ventilator. Head exam was generally normal. There was no scleral icterus or corneal arcus. Mucous membranes were moist. Neck was supple and without jugular venous distension, thyromegaly, or carotid bruits. Carotids were easily palpable bilaterally. There was no adenopathy. The patient has a right IJ triple-lumen catheter in place. Lungs sounds are diminished bilaterally along with some few scattered external wheezes heard throughout the lung loyd. Breath sounds are overall diminished. Heart sounds are irregular S1-S2, no cervical murmurs appreciated. Monitor the current heave or thrill. Abdomen is obese soft nontender. Organs cannot be accurately palpated. No direct tenderness. No rebound tenderness. No guarding. Extremities revealed +1 pitting edema and there is no cyanosis or clubbing at this point. No evidence of any acute cellulitis although there is some erythema in the left lower extremity. Skin shows a stage II small wounds in the butt and the back area. No open wounds or sores. No evidence of any cellulitis. Neurologically patient is sedated and there is no focal neurological deficit at this point. She withdraws to painful stimuli and she is a daily arousable from sedation as the patient was given a sedation holiday today. - Labs CBC & Chem 7: 05/13/18 03:40 05/13/18 03:40 Labs: Abnormal Lab Results - Last 24 Hours (Table) 05/12/18 05/12/18 05/12/18 Range/Units 17:12 19:07 21:41 WBC (3.8-10.6) k/uL RBC (3.80-5.40) m/uL Hgb (11.4-16.0) gm/dL Hct (34.0-46.0) % MCHC (31.0-37.0) g/dL RDW (11.5-15.5) % Plt Count (150-450) k/uL Neutrophils # (1.3-7.7) k/uL Lymphocytes # (1.0-4.8) k/uL Monocytes # (0-1.0) k/uL APTT 47.1 H (22.0-30.0) sec ABG pCO2 (35-45) mmHg ABG pO2 (83-108) mmHg ABG HCO3 (21-25) mmol/L ABG Total CO2 (19-24) mmol/L ABG O2 Saturation (94-97) % Sodium (137-145) mmol/L Chloride (98-107) mmol/L Carbon Dioxide (22-30) mmol/L BUN (7-17) mg/dL Creatinine (0.52-1.04) mg/dL Glucose (74-99) mg/dL POC Glucose (mg/dL) 189 H 165 H (75-99) mg/dL Calcium (8.4-10.2) mg/dL Phosphorus (2.5-4.5) mg/dL 05/13/18 05/13/18 05/13/18 Range/Units 00:02 03:40 03:40 WBC 18.7 H (3.8-10.6) k/uL RBC 3.47 L (3.80-5.40) m/uL Hgb 8.8 L (11.4-16.0) gm/dL Hct 29.7 L (34.0-46.0) % MCHC 29.6 L (31.0-37.0) g/dL RDW 18.5 H (11.5-15.5) % Plt Count 561 H (150-450) k/uL Neutrophils # 16.6 H (1.3-7.7) k/uL Lymphocytes # 0.8 L (1.0-4.8) k/uL Monocytes # 1.1 H (0-1.0) k/uL APTT (22.0-30.0) sec ABG pCO2 (35-45) mmHg ABG pO2 (83-108) mmHg ABG HCO3 (21-25) mmol/L ABG Total CO2 (19-24) mmol/L ABG O2 Saturation (94-97) % Sodium 132 L (137-145) mmol/L Chloride 91 L (98-107) mmol/L Carbon Dioxide 36 H (22-30) mmol/L BUN 44 H (7-17) mg/dL Creatinine 2.59 H (0.52-1.04) mg/dL Glucose 167 H (74-99) mg/dL POC Glucose (mg/dL) 163 H (75-99) mg/dL Calcium 8.0 L (8.4-10.2) mg/dL Phosphorus 5.8 H (2.5-4.5) mg/dL 05/13/18 05/13/18 05/13/18 Range/Units 03:40 06:51 07:01 WBC (3.8-10.6) k/uL RBC (3.80-5.40) m/uL Hgb (11.4-16.0) gm/dL Hct (34.0-46.0) % MCHC (31.0-37.0) g/dL RDW (11.5-15.5) % Plt Count (150-450) k/uL Neutrophils # (1.3-7.7) k/uL Lymphocytes # (1.0-4.8) k/uL Monocytes # (0-1.0) k/uL APTT 43.3 H (22.0-30.0) sec ABG pCO2 60 H (35-45) mmHg ABG pO2 124 H (83-108) mmHg ABG HCO3 36 H (21-25) mmol/L ABG Total CO2 38 H (19-24) mmol/L ABG O2 Saturation 99.2 H (94-97) % Sodium (137-145) mmol/L Chloride (98-107) mmol/L Carbon Dioxide (22-30) mmol/L BUN (7-17) mg/dL Creatinine (0.52-1.04) mg/dL Glucose (74-99) mg/dL POC Glucose (mg/dL) 186 H (75-99) mg/dL Calcium (8.4-10.2) mg/dL Phosphorus (2.5-4.5) mg/dL 05/13/18 05/13/18 05/13/18 Range/Units 11:10 12:33 13:07 WBC (3.8-10.6) k/uL RBC (3.80-5.40) m/uL Hgb (11.4-16.0) gm/dL Hct (34.0-46.0) % MCHC (31.0-37.0) g/dL RDW (11.5-15.5) % Plt Count (150-450) k/uL Neutrophils # (1.3-7.7) k/uL Lymphocytes # (1.0-4.8) k/uL Monocytes # (0-1.0) k/uL APTT 87.5 H (22.0-30.0) sec ABG pCO2 (35-45) mmHg ABG pO2 (83-108) mmHg ABG HCO3 (21-25) mmol/L ABG Total CO2 (19-24) mmol/L ABG O2 Saturation (94-97) % Sodium (137-145) mmol/L Chloride (98-107) mmol/L Carbon Dioxide (22-30) mmol/L BUN (7-17) mg/dL Creatinine (0.52-1.04) mg/dL Glucose (74-99) mg/dL POC Glucose (mg/dL) 149 H 155 H (75-99) mg/dL Calcium (8.4-10.2) mg/dL Phosphorus (2.5-4.5) mg/dL Microbiology - Last 24 Hours (Table) 05/11/18 15:00 Blood Culture - Preliminary Blood No Growth after 24 hours 05/11/18 23:45 Urine Culture - Preliminary Urine,Catheterized Assessment and Plan Plan: Assessment 1 acute on top of chronic hypoxic and hypercapnic respiratory failure. The patient is currently intubated on a mechanical ventilator. Most recent blood gas shows improvement and acid base status. PCO2 is 60 range which is probably where she is at at baseline. Oxygenation is also improved and currently the patient on a 45% FiO2 while being on assist control mode of ventilation, volume cycle. 2 acute respiratory failure, hypoxic and hypercapnic, likely secondary to a component of CHF in addition to an infectious cause which is still being under investigation. The possibilities include pneumonia, and urine infection. 3 acute hypotension currently on pressors for hemodynamic support. The patient is on 6 mics of levo fed. 4 CHF with an ejection fraction of 30-35% and moderate degree of pulmonary hypertension. The patient has obvious systolic dysfunction 5 chronic kidney failure with stage III kidney disease and an acute kidney injury on top of chronic renal failure, likely secondary to hypotension, cardiorenal factors versus sepsis 6 stage III chronic decubitus ulceration without evidence of an acute cellulitis 7 morbid obesity with a BMI 41.0 8 chronic atrial fibrillation and the patient is on IV heparin drip for now 9 coronary artery disease 10 recent hospitalization for diarrhea/C. diff colitis and the stool analysis was negative and the patient completed the course of deficit on outpatient basis 11 hypertension 12 degenerative arthritis and sciatica and chronic shoulder and back pain and knee pain and the patient has been wheelchair bound 13 COPD KENISHA Discussed the case at length with cardiology. I think there may be a septic component and the presentation is not solely related to CHF. Continue pressors. Patient was resuscitated IV fluids. His resulting another 500 mL of bolus and assess her blood pressure and urine output. Continue Lasix drip for now. Cardiology has attempted to use of milrinone which may potentially increase the tachycardia and contrary to the hypotension. This will be given on a trial basis. Monitor renal function. The same antibiotic coverage. Blood gases was noted. Continue vent support. Continue tube feeds. Echocardiac David was noted. We'll continue to follow and will make further recommendations based on progress. Long-term prognosis poor based on the medical problems and comorbidities as mentioned above. This is a critically care evaluation that was done and 35 minutes. Time with Patient: Greater than 30
[2018-05-13] MEDS: SODIUM CHLORIDE 0.9% 1,000 ML IV SCH (17:06)
[2018-05-13] MEDS: HEPARIN SOD,PORK IN 0.45% NACL 25,000 UNIT in 0.45% NACL 1 500ML.BAG IV SCH (17:23)
--- NOTE | 2018-05-13 18:08 | PN ---
PROGRESS NOTE The patient is seen for followup for acute kidney injury. She was admitted to the hospital with increased weakness and lethargy. The patient was found to be in atrial fibrillation with RVR. She was intubated. A chest x-ray shows evidence of pulmonary vascular congestion and pleural effusion. Echocardiogram shows ejection fraction about 30-35%, which has changed from a previous echo showing EF of about 50-55%. Troponins were borderline. The patient was started on Lasix drip yesterday. Initially, her urine output had been only at about 10 mL an hour. After the Lasix drip it had picked up to about 20 mL/hours. Her creatinine has gone up from 1.9 to 2.59 today. The patient remains on Levophed at about 6 mcg. No fevers or chills noted. Cultures are negative thus far. PHYSICAL EXAMINATION: On examination, patient is on the vent. She is awake. Her sedation will be increased. Blood pressure this morning was 98/64. Patient is afebrile. Heart rate about 110-118 per minute. Examination of the heart: S1, S2. Examination of the lungs: Bilateral breath sounds are heard. Abdomen is soft, obese, nontender. Examination lower extremity shows edema 2+ bilaterally with chronic skin changes noted. LABS: Show hemoglobin of 8.8 today. White cell count was 18.7, sodium 132, potassium 4.0, BUN 44, serum creatinine 2.59, phosphorus was 5.8, magnesium 2.3. ASSESSMENT: 1. Acute kidney injury, acute tubular necrosis, currently nonoliguric secondary to hypotension hypoperfusion as well as cardiorenal syndrome. The patient is maintained on Lasix drip following which her urine output did increase. We will discuss with Cardiology regarding use of inotropic agents given the low ejection fraction. The there are no nephrotoxic agents on board. 2. Vent dependent respiratory failure, hypoxic respiratory failure currently on the vent with no problems in oxygenation. 3. Cardiomyopathy, ejection fraction 30-35%. 4. Congestive heart failure, acute on top of chronic mainly systolic. 5. Possible chronic kidney disease. No previous labs available for comparison. 6. Pyuria with urine culture showing no growth. PLAN: Continue empiric antibiotics. Continue with Lasix drip. Urine output should improve once the patient is more hemodynamically stable. Repeat labs in a.m. Consider inotropic agents, given the low EF and progressive renal failure. The patient is not a good candidate for renal replacement therapy if renal function continues to worsen. MMODL / IJN: [id number] /
[2018-05-13 18:17] LABS: Glucose,Whole Blood 177 mg/dL (75-99)
[2018-05-13 22:02] LABS: Glucose,Whole Blood 141 mg/dL (75-99)
--- NOTE | 2018-05-13 22:56 | P.CON ---
Consult Note - . Consult date: 05/13/18 Assessment/Plan:: This is a 67-year-old morbidly obese female that came into the emergency center yesterday with shortness of breath and lethargy. Patient apparently has been bedbound for the past 3 weeks due to shortness of breath. Patient has not been eating very much and also had diarrhea. She was treated outpatient with deficit and completed the course and was then placed on antidiarrheal agent. She was admitted 2 months ago at [facility] for heart failure. She required intubation in the emergency center. She was also found to have atrial fibrillation with RVR is currently on amiodarone drip. Cardiology is following. Nephrology is also following for acute kidney injury with BUN 44 and creatinine 2.59. Patient presented with leukocytosis but afebrile. Troponins were mildly elevated at 0.046, 0.049, 0.047. Albumin 2.6, TSH 1.550. C. difficile toxin was negative. Urinalysis was cloudy, leukoesterase large, WBC 33 and bacteria rare. Blood issuing no growth at 24 hours and urine culture is in progress. Patient is currently on norepinephrine, Lasix drip, amiodarone drip, heparin drip and sedation. He guarding antibiotics patient is on Azactam and vancomycin. Initial x-ray shows mild cardiomegaly and interstitial prominence. Correlate for heart failure and mild pulmonary vascular congestion. Small to moderate left and trace left pleural effusions with adjacent atelectasis and/or consolidation. Repeat chest x-ray this morning reveals improved aeration of the right upper lung. Haziness of the right hemidiaphragm likely represents a new trace right pleural effusion. Persistent retrocardiac obesity is favored to represent a small pleural effusion and left basilar atelectasis. Overall stable lines and tubes. Echocardiogram reveals EF of 3035%, moderate concentric left ventricular hypertrophy, elderly severely dilated, mild mitral regurgitation, moderate tricuspid regurgitation, moderate pulmonary hypertension. Regarding wounds, patient has stage III decubitus ulcer on the right buttocks, left hip and the shear-type injury to the right hip area there is mild cellulitis to the left pretibial area. Patient's bowel movements are currently soft. Please see the consult note is dictated by nurse practitioner Mrs. Mine Gonzalez. The patient is evaluated with the nurses present. There is evidence of the multiple pressure ulcerations that are present on admission as well as admitted for cellulitis of the left pretibial area. Bordered foam dressings will be utilized to the pressure ulcerations except to the left pretibial area with Silvadene wrap will be applied. Antimicrobial therapy has been initiated with vancomycin and Azactam given her ALLERGIES. These will continue for now monitoring kidney function, may need to transition to a different agent however with concerns to potential pneumonia given the x-ray findings as well as the worsening heart failure daptomycin would not be an option at this time. Cultures indicated if she becomes febrile. I agree with evaluation, assessment and plan as dictated by nurse practitioner Mrs. Mine Gonzalez.
[2018-05-13] MEDS ORDERED: FUROSEMIDE 250 MG in SODIUM CHLORIDE 0.9% 225 ML IVP SCH (23:00)
[2018-05-14] LABS: Glucose,Whole Blood 161 mg/dL (75-99)
[2018-05-14] MEDS: AZTREONAM 1 GM in SODIUM CHLORIDE 0.9% 50 ML IVPB SCH ×4 (00:07→23:42)
[2018-05-14] MEDS: PROPOFOL 1,000 MG in EMPTY BAG 1 BAG IV SCH ×7 (00:51→23:42)
[2018-05-14] MEDS: INSULIN ASPART 100 UNIT/ML 1 ML 10 ML VIAL SQ SCH ×4 (00:53→18:14)
[2018-05-14] MEDS: IPRATROPIUM-ALBUTEROL 3 ML NEB INHALATION SCH ×6 (02:51→23:39)
[2018-05-14 04:59] LABS: Anisocytosis Slight; Basophils % (A) 0 %; Eosinophils # (A) 0.1 k/uL (0-0.7); Eosinophils % (A) 0 %; HCT 26.8 % (34.0-46.0); HGB 8.1 gm/dL (11.4-16.0); Hypochromasia Marked; Lymphocytes # (A) 1.2 k/uL (1.0-4.8); Lymphocytes % (A) 8 %; MCH 25.5 pg (25.0-35.0); MCHC 30.1 g/dL (31.0-37.0); MCV 84.9 fL (80.0-100.0); Mean Platelet Volume 8.1; Monocytes # (A) 0.9 k/uL (0-1.0); Monocytes % (A) 6 %; Neutrophils # (A) 12.6 k/uL (1.3-7.7); Neutrophils % (A) 84 %; Platelet Count 410 k/uL (150-450); RBC 3.16 m/uL (3.80-5.40); RDW 18.8 % (11.5-15.5)
[2018-05-14 05:00] LABS: ABG Base Excess 10.4 mmol/L; ABG HCO3 35 mmol/L (21-25); ABG Oxygen Saturation 98.2 % (94-97); ABG PCO2 58 mmHg (35-45); ABG PO2 95 mmHg (83-108); ABG TCO2 37 mmol/L (19-24)
[2018-05-14] MEDS ORDERED: AMIODARONE 450 MG in DEXTROSE 5% IN WATER 250 ML IV SCH ×2 (05:00)
[2018-05-14 05:58] LABS: Calcium 8.1 mg/dL (8.4-10.2); Magnesium 2.3 mg/dL (1.6-2.3); Phosphorus 6.1 mg/dL (2.5-4.5); Potassium 3.9 mmol/L (3.5-5.1)
[2018-05-14 06:03] LABS: Vancomycin,Random 20.5 ug/mL
--- NOTE | 2018-05-14 08:35 | XR ---
EXAMINATION TYPE: XR chest 1V portable DATE OF EXAM: 05/14/2018 Comparison: 05/13/2018 Clinical History: 67-year-old female Tube placement Findings: ET tube is satisfactory. NG tube courses below the diaphragm. Right subclavian CVC tip in the upper r ight atrium. There is new near complete white out of the left hemithorax. Left heart margin obscured by adjacent p leural parenchymal disease. Mild diffuse interstitial changes in the right hemithorax relatively brennen lar. Impression: New near complete white out of the left hemithorax. Suspect increasing left pleural effusion. There c ould be any additional combination of underlying atelectasis and consolidation as well. Consider muco us plugging or other endobronchial lesion in the differential. The ET tube remains satisfactory.
--- NOTE | 2018-05-14 08:47 | P.PN ---
Subjective Progress Note Date: 05/14/18 This is a 67-year-old female with history of multiple medical problems including chronic hypercapnic respiratory failure, obstructive sleep apnea syndrome, COPD, patient is on home oxygen at 3 L, she is also on BiPAP and seems to be nocturnally BiPAP dependent. Patient is also known to have history of chronic atrial fibrillation, chronic decubitus ulcers, superficial leg ulcers , patient has a visiting nurse taking care of her ulcers and chronic wounds. She was noted by the visiting nurse to be dyspneic, for at least 24 hours prior to presentation. Patient has been using oxygen at home, BiPAP, and she is also on updrafts in the form of DuoNeb. Considering the patient was not noticing significant improvement, patient was advised to come to the ER. Upon arrival to the ER, patient was noted to be quite dyspneic, and did not improve much with BiPAP. Hence she was intubated by Dr. Steve Roberts, placed on mechanical ventilation, admitted to the ICU and this consult was initiated. Presently the patient is on the following ventilator settings tidal volume of 400 assist control rate of 18 FiO2 of 50% and PEEP of 5. She is in atrial fibrillation with RVR, placed on amiodarone to replace Cardizem as per cardiology. Her echocardiogram showed severe ventricular dysfunction ejection fraction of 30-35% . Hence the patient was placed on Lasix drip. Chest x-ray did show evidence of pulmonary edema. Echocardiogram also showed evidence of moderate pulmonary hypertension with a right-sided pressures in the range of 50. Patient was recently diagnosed as having C. difficile colitis, and has been on deficid on outpatient basis. ABG this morning showed a pO2 of 109 pCO2 of 60 pH of 7.43, hence I cut down the FiO2 to 45%. And I kept the same ventilator settings are unchanged. Renal functioning was noted to be abnormal creatinine is 1.90 BUN is 39 however the patient is known to have history of chronic kidney disease stage III. ProBNP level was noted to be elevated over 5500. Troponin was borderline elevated. Urine showed pyuria and bacteriuria suggestive of urinary tract infection. Patient was empirically placed on aztreonam and vancomycin. Infectious disease consultation was also initiated. On today's evaluation of 05/13/2018 I'm seeing this patient for a follow-up. The patient is sedated with Diprivan at 30 g per KG pigmented. The patient is calm and comfortable. She remains on a mechanical ventilator on assist control mode at the rate of 18, tidal volume of 400, FiO2 of 45% and a PEEP of 5. The pH is at 7.39 with a pCO2 of 60 and pO2 of 124. The peak airway pressures around 33-34 and the static airway pressures around 17. Chest x-ray shows shows improved aeration of the right upper lobe. There is haziness along the right hemidiaphragm possibly related to some trace bilateral pleural effusion and atelectatic changes in lung bases. ET tube is in a good location. There is also a right IJ triple-lumen catheter in place. Hemodynamically, the patient is still requiring pressors. This morning she was and 6 mics of norepinephrine infusion for blood pressure control. At the same time the patient was in atrial fibrillation with slight tachycardia and the heart rate was in the low 100s range. The patient was started on amiodarone and the patient was being loaded and she was on 1 mg/m of an amiodarone drip. At the same time, the patient is on Lasix drip at the dose of 10 mg an hour. CVP was checked and was at 16. The patient was afebrile. The patient had an echocardiogram that showed an ejection fraction of 30-35% consistent with moderate severe LV dysfunction. The symptom the patient moderate concentric left ventricular hypertrophy, as he was severely dilated, there is moderate degree of pulmonary hypertension with a PA pressure of around 49. The urine output was in the order of 20 mL an hour. Her net fluid balance is +3.6 L yesterday. The renal function remains impaired and the creatinine is at 2.59 consistent with acute on top of chronic renal failure. She is currently receiving tube feeds which is also at goal. Stool for C. diff was negative. The patient is on empiric antibiotic coverage with IV aztreonam and vancomycin. The choice of aztreonam was made due to concern of an underlying urine checked infection knowing that the patient's UA was abnormal at the time of admission. There is questionable cirrhotic changes in the left lower extremity and the patient is covered with vancomycin. No open wounds or sores are than stage II ulcer in the back and buttock area. On today's evaluation of 05/14/2018, the patient is being seen for a follow-up. The patient remains intubated on a mechanical ventilator. This morning, she is sedated and she is calm and comfortable. She is on Diprivan which is running at 30 g per KG pigmented. She will receive her daily sedation holiday today and her underlying mentation will be assessed. She remains on a mechanical ventilator. She is an assist-control mode of ventilation at the rate of 18, tidal volume of 400, FiO2 of 45% and a PEEP of 5. She is intubated by #7.582. On today's chest x-ray, there is cardiomegaly and there is further volume loss and consolidation of the left lower lobe and I do suspect a partial atelectasis of the left lung probably related to endobronchial secretions as the patient is having thick purulent rest or secretions upon suctioning. Overall, she is afebrile. She is covered with a combination of as active and vancomycin. There was concern for a urine infection yesterday and the blood cultures and urine cultures still pending and they're negative for now. However , the patient is still pressor dependent and she is on Mics of norepinephrine infusion for blood pressure control. Her mean arterial pressures above 65. Her urine output improved overnight and she is producing more than 100 mL an hour on an hourly basis. Her creatinine is up to 2.8. Nephrology valve that the patient stop the Lasix drip and she'll be receiving Lasix pushes 40 mg every 12 hours. Also, she is still in nature fibrillation rhythm. Rate is controlled. She is on amiodarone 1 mg/m which I intend to stop today as the patient's rate is under good control the patient is also on IV heparin for anticoagulation regards to her atrial fibrillation. She will feeds are in the form of vital high protein and the patient is at goal at 28 mL an hour. No diarrhea. No abdominal distention. No other significant events overnight. Objective - Vital Signs Vital signs: Vital Signs Temp 97.1 F L 05/14/18 04:00 Pulse 105 H 05/14/18 07:33 Resp 17 05/14/18 07:00 BP 87/63 05/14/18 07:00 Pulse Ox 100 05/14/18 07:00 Intake & Output 05/13/18 05/14/18 05/14/18 18:59 06:59 18:59 Intake Total 2401.022 922.285 5 Output Total 596 1355 125 Balance 1805.022 -432.715 -120 Weight 116.2 kg Intake: IV 1110 200 5 0.9 NACL bolus 500 Furosemide 250 mg In 120 80 5 Sodium Chloride 0.9% 225 ml @ 5 MG/HR 5 mls/hr IVP .Q24H [facility] Rx#:[id number] Sodium Chloride 0.9% 1, 240 120 000 ml @ 20 mls/hr IV . Q24H [facility] Rx#:[id number] vancomycin 250 Intake, IV Titration 899.022 610.285 Amount Amiodarone 450 mg In 250 250 Dextrose 5% in Water 250 ml @ 1 MG/MIN 33.33 mls/ hr IV .Q7H31M [facility] Rx#: [id number] Furosemide 250 mg In 248 Sodium Chloride 0.9% 225 ml @ 5 MG/HR 5 mls/hr IVP .Q24H [facility] Rx#:[id number] Heparin Sod,Pork in 0.45% 289.522 NaCl 25,000 unit In 0.45 % NaCl 1 500ml.bag @ 9.8 UNITS/KG/HR 21.91 mls/hr IV .[id number] [facility] Rx#: [id number] Norepinephrine 16 mg In 11.5 67.721 Dextrose 5% in Water 250 ml @ Titrate IV .Q0M [facility] Rx#:[id number] Propofol 1,000 mg In 100 292.564 Empty Bag 1 bag @ Titrate IV .Q0M [facility] Rx#: [id number] Tube Feeding 392 112 Output: Urine 596 1355 125 Other: Voiding Method Indwelling Catheter Indwelling Catheter # Bowel Movements 1 ABP, PAP, CO, CI - Last Documented Arterial Blood Pressure 98/62 - Exam Gen. appearance obese, comfortable likely distress sedated intubated on a mechanical ventilator. 6 was with the mechanical ventilator. Head exam was generally normal. There was no scleral icterus or corneal arcus. Mucous membranes were moist. Neck was supple and without jugular venous distension, thyromegaly, or carotid bruits. Carotids were easily palpable bilaterally. There was no adenopathy. The patient has a right IJ triple-lumen catheter in place. Lungs sounds are diminished bilaterally along with some few scattered external wheezes heard throughout the lung loyd. Breath sounds are overall diminished. Heart sounds are irregular S1-S2, no cervical murmurs appreciated. Monitor the current heave or thrill. Abdomen is obese soft nontender. Organs cannot be accurately palpated. No direct tenderness. No rebound tenderness. No guarding. Extremities revealed +1 pitting edema and there is no cyanosis or clubbing at this point. No evidence of any acute cellulitis although there is some erythema in the left lower extremity. Skin shows a stage II small wounds in the butt and the back area. No open wounds or sores. No evidence of any cellulitis. Neurologically patient is sedated and there is no focal neurological deficit at this point. She withdraws to painful stimuli and she is a daily arousable from sedation as the patient was given a sedation holiday today. - Labs CBC & Chem 7: 05/14/18 04:50 05/14/18 04:50 Labs: Abnormal Lab Results - Last 24 Hours (Table) 05/13/18 05/13/18 05/13/18 Range/Units 11:10 12:33 13:07 WBC (3.8-10.6) k/uL RBC (3.80-5.40) m/uL Hgb (11.4-16.0) gm/dL Hct (34.0-46.0) % MCHC (31.0-37.0) g/dL RDW (11.5-15.5) % Neutrophils # (1.3-7.7) k/uL APTT 87.5 H (22.0-30.0) sec ABG pCO2 (35-45) mmHg ABG HCO3 (21-25) mmol/L ABG Total CO2 (19-24) mmol/L ABG O2 Saturation (94-97) % Sodium (137-145) mmol/L Chloride (98-107) mmol/L Carbon Dioxide (22-30) mmol/L BUN (7-17) mg/dL Creatinine (0.52-1.04) mg/dL Glucose (74-99) mg/dL POC Glucose (mg/dL) 149 H 155 H (75-99) mg/dL Calcium (8.4-10.2) mg/dL Phosphorus (2.5-4.5) mg/dL 05/13/18 05/13/18 05/13/18 Range/Units 18:13 22:00 23:58 WBC (3.8-10.6) k/uL RBC (3.80-5.40) m/uL Hgb (11.4-16.0) gm/dL Hct (34.0-46.0) % MCHC (31.0-37.0) g/dL RDW (11.5-15.5) % Neutrophils # (1.3-7.7) k/uL APTT (22.0-30.0) sec ABG pCO2 (35-45) mmHg ABG HCO3 (21-25) mmol/L ABG Total CO2 (19-24) mmol/L ABG O2 Saturation (94-97) % Sodium (137-145) mmol/L Chloride (98-107) mmol/L Carbon Dioxide (22-30) mmol/L BUN (7-17) mg/dL Creatinine (0.52-1.04) mg/dL Glucose (74-99) mg/dL POC Glucose (mg/dL) 177 H 141 H 161 H (75-99) mg/dL Calcium (8.4-10.2) mg/dL Phosphorus (2.5-4.5) mg/dL 05/13/18 05/14/18 05/14/18 Range/Units Unknown 04:50 04:50 WBC 15.0 H (3.8-10.6) k/uL RBC 3.16 L (3.80-5.40) m/uL Hgb 8.1 L (11.4-16.0) gm/dL Hct 26.8 L (34.0-46.0) % MCHC 30.1 L (31.0-37.0) g/dL RDW 18.8 H (11.5-15.5) % Neutrophils # 12.6 H (1.3-7.7) k/uL APTT 65.6 H (22.0-30.0) sec ABG pCO2 (35-45) mmHg ABG HCO3 (21-25) mmol/L ABG Total CO2 (19-24) mmol/L ABG O2 Saturation (94-97) % Sodium 131 L (137-145) mmol/L Chloride 90 L (98-107) mmol/L Carbon Dioxide 34 H (22-30) mmol/L BUN 51 H (7-17) mg/dL Creatinine 2.80 H (0.52-1.04) mg/dL Glucose 117 H (74-99) mg/dL POC Glucose (mg/dL) (75-99) mg/dL Calcium 8.1 L (8.4-10.2) mg/dL Phosphorus 6.1 H (2.5-4.5) mg/dL 05/14/18 05/14/18 Range/Units 04:50 04:58 WBC (3.8-10.6) k/uL RBC (3.80-5.40) m/uL Hgb (11.4-16.0) gm/dL Hct (34.0-46.0) % MCHC (31.0-37.0) g/dL RDW (11.5-15.5) % Neutrophils # (1.3-7.7) k/uL APTT 51.9 H (22.0-30.0) sec ABG pCO2 58 H (35-45) mmHg ABG HCO3 35 H (21-25) mmol/L ABG Total CO2 37 H (19-24) mmol/L ABG O2 Saturation 98.2 H (94-97) % Sodium (137-145) mmol/L Chloride (98-107) mmol/L Carbon Dioxide (22-30) mmol/L BUN (7-17) mg/dL Creatinine (0.52-1.04) mg/dL Glucose (74-99) mg/dL POC Glucose (mg/dL) (75-99) mg/dL Calcium (8.4-10.2) mg/dL Phosphorus (2.5-4.5) mg/dL Microbiology - Last 24 Hours (Table) 05/11/18 15:00 Blood Culture - Preliminary Blood No Growth after 48 hours 05/11/18 23:45 Urine Culture - Final Urine,Catheterized Assessment and Plan Plan: Assessment 1 acute on top of chronic hypoxic and hypercapnic respiratory failure. The patient is currently intubated on a mechanical ventilator. Most recent blood gas shows improvement and acid base status. PCO2 is 60 range which is probably where she is at at baseline. Oxygenation is also improved and currently the patient on a 45% FiO2 while being on assist control mode of ventilation, volume cycle. 2 acute respiratory failure, hypoxic and hypercapnic, likely secondary to a component of CHF in addition to an infectious cause which is still being under investigation. There is a concern for pneumonia or an evolving pneumonia which could essentially be healthcare history of pneumonia as the patient has further volume loss and consolidation of the left lung, probably partial atelectasis and same time the patient is producing significant amount of purulent respiratory secretions were orotracheal tube today. Based on the significant volume loss seen on states chest x-ray, will need a bronchoscope for pulmonary toileting and removal of mucous plugs. At the same time this will be good opportunity to get samples of sputum for cultures. 3 acute hypotension currently on pressors for hemodynamic support. The patient is on 6 mics of levo fed. The patient has an ejection fraction of 30-35% 4 CHF with an ejection fraction of 30-35% and moderate degree of pulmonary hypertension. The patient has obvious systolic dysfunction 5 chronic kidney failure with stage III kidney disease and an acute kidney injury on top of chronic renal failure, likely secondary to hypotension, cardiorenal factors versus sepsis. The patient's urine output is improved. The creatinine is up to 2.8 on today's evaluation. Nephrology is on the case. Lasix to has been discontinued. 6 stage III chronic decubitus ulceration without evidence of an acute cellulitis 7 morbid obesity with a BMI 41.0 8 chronic atrial fibrillation and the patient is on IV heparin drip for now, the patient is also on amiodarone drip for rate control and rate is under decent control for the time being. 9 coronary artery disease 10 recent hospitalization for diarrhea/C. diff colitis and the stool analysis was negative and the patient completed the course of deficit on outpatient basis 11 hypertension 12 degenerative arthritis and sciatica and chronic shoulder and back pain and knee pain and the patient has been wheelchair bound 13 COPD 14 enteral feeding for nutritional support KENISHA There is concern for development of a pneumonia which could be healthcare associated pneumonia. Add cefepime. Continue aztreonam. Continue vancomycin. Consult with ID regarding the antibiotic coverage. Meanwhile, attempt to wean off the pressors. We will plan for a bronchoscopy and therapy care was suctioning and bronchioloalveolar lavage of the left lung today. This will be done at the bedside. Continue monitoring the hemodynamics and attempt to wean off the pressors. This continued IV had amiodarone. Continued IV heparin. Continue enteral feeding for nutritional support. Discontinue the Lasix drip as the patient is producing adequate amount of urine output. Monitor renal function. Not ready for weaning and extubation yet. She remains critically ill. We'll continue to follow make further recommendations based on her progress. There is a critically care evaluation, 32 minutes.
[2018-05-14] MEDS ORDERED: CEFEPIME 1 GM in SODIUM CHLORIDE 0.9% 50 ML IVPB SCH (09:00)
[2018-05-14] MEDS: CHLORHEXIDINE GLUCONATE 15 ML CUP MUCOUS MEM SCH ×2 (09:15→20:20)
[2018-05-14] MEDS: PANTOPRAZOLE 40 MG/10 ML VIAL IV SCH (09:15)
[2018-05-14] MEDS: ASPIRIN 325 MG TAB PO SCH (09:46)
[2018-05-14] MEDS: GENTAMICIN 0.1% CREAM 15 GM TUBE TOPICAL SCH ×3 (09:47→22:06)
[2018-05-14] MEDS ORDERED: IV FLUID CONTINUATION 1,000 ML IV ONE (10:24)
[2018-05-14] MEDS ORDERED: CISATRACURIUM 2 MG/ML 5 ML VIAL IV ONE (10:39)
[2018-05-14] MEDS: AMIODARONE 200 MG TAB PO SCH ×3 (11:27→22:07)
[2018-05-14] MEDS: NOREPINEPHRINE 16 MG in DEXTROSE 5% IN WATER 250 ML IV SCH ×2 (11:32)
--- NOTE | 2018-05-14 11:45 | PN ---
PROGRESS NOTE DATE OF SERVICE: 05/14/2018. HISTORY: Patient is seen for followup for acute kidney injury. Patient was admitted to the hospital with weakness, was found to be in atrial fibrillation with RVR and CHF. Patient's ejection fraction is about 30% to 35%. She is maintained on Levophed , about 6 mcg. The patient is also on Lasix drip. Her urine output was initially poor and then it has picked up. It had picked up to about 20 mL an hours. Yesterday she got a 500 mL fluid bolus and urine output seems to have picked up. Lasix drip last night was decreased to 5 mg an hour. This morning patient is on the vent. She has had good urine output, staying at 100 to 125 mL/hour. PHYSICAL EXAMINATION: She is afebrile. Blood pressure was 109/69, heart rate 117 to 90 per minute. She is afebrile. Examination of the heart S1, S2. Examination of lungs, decreased breath sounds in bilateral bases. Abdomen is soft, nontender, obese. Examination of lower extremity shows edema 2+ bilaterally with chronic skin changes. [employer] OPERATOR exam cannot be performed. LABS: Hemoglobin 8.1, sodium 131, potassium 3.9, serum creatinine 2.8, BUN 51, phosphorus 6.1. ASSESSMENT: 1. Acute kidney injury, mainly cardiorenal and acute tubular necrosis (ATN) as well as from hypotension and hypoperfusion. Initially oliguric, currently nonoliguric, with significantly improved urine output. I will discontinue the Lasix drip and allow the patient to diurese on her own. We can maintain low-dose of IV push Lasix. Chest x-ray from today shows new whiteout of the left hemithorax. In this will be addressed by Pulmonary. 2. Congestive heart failure, systolic, acute on top of chronic, being diuresed. EF 30-35% 3. Ventilator-dependent respiratory failure secondary to volume overload, currently with left lung opacification. 4. Anemia with no active bleeding noted. We will check iron profile. 5. A fib with RVR on amiodorone drip. Rate is better controlled. PLAN: Discontinue Lasix drip. Check iron profile. Maintain Lasix 40 mg every 12 hours if urine output drops. Repeat labs in a.m. Continue to avoid nephrotoxic agents. Vancomycin level was 20. This can should be discontinued in view of significant renal failure. MMODL / IJN: [id number] / MTDD
--- NOTE | 2018-05-14 12:06 | PN ---
PROGRESS NOTE DATE OF SERVICE: 05/14/2018. HISTORY: This patient was admitted with acute respiratory distress secondary to pneumonia and congestive cardiac failure. The patient remains intubated. Heart rate is now 70 to 80 per minute, blood pressure is 109/69 mmHg. First and second heart sounds are normal. Lung examination reveals bilateral diminished air entry. The patient has a urine output of 925 mL during the night and 325 mL since this morning. The patient is currently on Levophed. Patient's condition discussed with Dr. Laws. We will wean her off the amiodarone drip and start oral amiodarone, continue on Levophed drip. The patient's creatinine is 2.8, patient is improving with diuresis. The Lasix drip is discontinued and patient started on Lasix 40 mg every12 hours. MMODL / IJN: [id number] /
[2018-05-14 12:58] LABS: Glucose,Whole Blood 122 mg/dL (75-99)
--- NOTE | 2018-05-14 14:59 | OP ---
OPERATIVE REPORT BRONCHOSCOPY AND BRONCHOALVEOLAR LAVAGE: PREOPERATIVE DIAGNOSIS: Left lung pneumonia/atelectasis. POSTOPERATIVE DIAGNOSIS: Left lung pneumonia/atelectasis. This procedure was done in the intensive care unit. The patient was already intubated on a mechanical ventilator. The patient was placed on 100% FiO2. A dose of 10 mg of Nimbex was given to achieve complete paralysis. The patient was already on sedation utilizing Diprivan. As the patient was being oxygenated and ventilated, the flexible bronchoscope was inserted through the orotracheal tube. It was advanced into the lower trachea. The tip of the ET tube was seen around 3 cm above the german. Immediately the distal trachea and the german were identified. There was a copious amount of purulent greenish to yellowish secretions occupying the distal trachea, more so in the left mainstem bronchus. Therapeutic airway suctioning was done. Airway inspection was started. As the secretions were being suctioned out, the airway inspection was being completed. Examination included the left mainstem bronchus. It was very full with purulent secretions. Examination also included the left upper lobe bronchus and left bronchus along with various segments and subsegments. All of these airways were patent after therapeutic airway suction was done. At this point the bronchoscope was wedged into the lingula. A total of 100 mL of fluid was infused and 35 to 40 mL of purulent material was aspirated. Examination of left lower lobe bronchus showed patent airways after therapeutic airway suctioning was done. Then the bronchoscope was moved to the right side and examination was completed, including the right mainstem bronchus, right upper lobe bronchus that was trifurcated, and the various segments were seen -- bronchus intermedius, right middle lobe bronchus, right lower lobe bronchi along with its various segments and subsegments. At the end of the procedure, the patient had clear airways. All of the secretions were suctioned out. Bronchoscope was removed and the procedure was terminated. The samples were sent for microbial analysis. MMODL / IJN: [id number] /
--- NOTE | 2018-05-14 16:50 | P.PN ---
Subjective Progress Note Date: 05/14/18 Principal diagnosis: events noted Objective - Vital Signs Vital signs: Vital Signs Temp 98.5 F 05/14/18 12:00 Pulse 104 H 05/14/18 16:00 Resp 18 05/14/18 14:30 BP 87/63 05/14/18 07:00 Pulse Ox 99 05/14/18 14:30 Intake & Output 05/13/18 05/14/18 05/14/18 18:59 06:59 18:59 Intake Total 2401.022 987.328 0501.290 Output Total 596 1355 775 Balance 1805.022 -432.715 421.290 Weight 116.2 kg 116.2 kg Intake: IV 1110 200 295 0.9 NACL bolus 500 Cefepime 1 gm In Sodium 100 Chloride 0.9% 50 ml @ 100 mls/hr IVPB Q12HR [facility] Rx #:[id number] Furosemide 250 mg In 120 80 5 Sodium Chloride 0.9% 225 ml @ 5 MG/HR 5 mls/hr IVP .Q24H [facility] Rx#:[id number] Sodium Chloride 0.9% 1, 240 120 140 000 ml @ 20 mls/hr IV . Q24H [facility] Rx#:[id number] vancomycin 250 Intake, IV Titration 899.022 610.285 429.290 Amount Amiodarone 450 mg In 250 250 Dextrose 5% in Water 250 ml @ 1 MG/MIN 33.33 mls/ hr IV .Q7H31M [facility] Rx#: [id number] Aztreonam 1 gm In Sodium 100 Chloride 0.9% 50 ml @ 100 mls/hr IVPB Q8HR [facility] Rx# :[id number] Furosemide 250 mg In 248 Sodium Chloride 0.9% 225 ml @ 5 MG/HR 5 mls/hr IVP .Q24H [facility] Rx#:[id number] Heparin Sod,Pork in 0.45% 289.522 NaCl 25,000 unit In 0.45 % NaCl 1 500ml.bag @ 9.8 UNITS/KG/HR 21.91 mls/hr IV .[id number] [facility] Rx#: [id number] Norepinephrine 16 mg In 11.5 67.721 64.017 Dextrose 5% in Water 250 ml @ Titrate IV .Q0M [facility] Rx#:[id number] Propofol 1,000 mg In 100 292.564 265.273 Empty Bag 1 bag @ Titrate IV .Q0M [facility] Rx#: [id number] Tube Feeding 392 112 252 Other 220 Output: Urine 596 1355 775 Other: Voiding Method Indwelling Catheter Indwelling Catheter Indwelling Catheter # Bowel Movements 1 ABP, PAP, CO, CI - Last Documented Arterial Blood Pressure 85/54 - Constitutional Constitutional Comment(s): intubated - Respiratory Respiratory: bilateral: diminished - Cardiovascular Rhythm: regular - Gastrointestinal General gastrointestinal: Present: normal bowel sounds - Integumentary Integumentary: Present: decreased turgor - Neurologic Neurologic Comment(s): sedated - Psychiatric Psychiatric Comment(s): limited intubated and sedated - Labs CBC & Chem 7: 05/14/18 04:50 05/14/18 04:50 Labs: Abnormal Lab Results - Last 24 Hours (Table) 05/13/18 05/13/18 05/13/18 Range/Units 18:13 22:00 23:58 WBC (3.8-10.6) k/uL RBC (3.80-5.40) m/uL Hgb (11.4-16.0) gm/dL Hct (34.0-46.0) % MCHC (31.0-37.0) g/dL RDW (11.5-15.5) % Neutrophils # (1.3-7.7) k/uL APTT (22.0-30.0) sec ABG pCO2 (35-45) mmHg ABG HCO3 (21-25) mmol/L ABG Total CO2 (19-24) mmol/L ABG O2 Saturation (94-97) % Sodium (137-145) mmol/L Chloride (98-107) mmol/L Carbon Dioxide (22-30) mmol/L BUN (7-17) mg/dL Creatinine (0.52-1.04) mg/dL Glucose (74-99) mg/dL POC Glucose (mg/dL) 177 H 141 H 161 H (75-99) mg/dL Calcium (8.4-10.2) mg/dL Phosphorus (2.5-4.5) mg/dL 05/13/18 05/14/18 05/14/18 Range/Units Unknown 04:50 04:50 WBC 15.0 H (3.8-10.6) k/uL RBC 3.16 L (3.80-5.40) m/uL Hgb 8.1 L (11.4-16.0) gm/dL Hct 26.8 L (34.0-46.0) % MCHC 30.1 L (31.0-37.0) g/dL RDW 18.8 H (11.5-15.5) % Neutrophils # 12.6 H (1.3-7.7) k/uL APTT 65.6 H (22.0-30.0) sec ABG pCO2 (35-45) mmHg ABG HCO3 (21-25) mmol/L ABG Total CO2 (19-24) mmol/L ABG O2 Saturation (94-97) % Sodium 131 L (137-145) mmol/L Chloride 90 L (98-107) mmol/L Carbon Dioxide 34 H (22-30) mmol/L BUN 51 H (7-17) mg/dL Creatinine 2.80 H (0.52-1.04) mg/dL Glucose 117 H (74-99) mg/dL POC Glucose (mg/dL) (75-99) mg/dL Calcium 8.1 L (8.4-10.2) mg/dL Phosphorus 6.1 H (2.5-4.5) mg/dL 05/14/18 05/14/18 05/14/18 Range/Units 04:50 04:58 12:56 WBC (3.8-10.6) k/uL RBC (3.80-5.40) m/uL Hgb (11.4-16.0) gm/dL Hct (34.0-46.0) % MCHC (31.0-37.0) g/dL RDW (11.5-15.5) % Neutrophils # (1.3-7.7) k/uL APTT 51.9 H (22.0-30.0) sec ABG pCO2 58 H (35-45) mmHg ABG HCO3 35 H (21-25) mmol/L ABG Total CO2 37 H (19-24) mmol/L ABG O2 Saturation 98.2 H (94-97) % Sodium (137-145) mmol/L Chloride (98-107) mmol/L Carbon Dioxide (22-30) mmol/L BUN (7-17) mg/dL Creatinine (0.52-1.04) mg/dL Glucose (74-99) mg/dL POC Glucose (mg/dL) 122 H (75-99) mg/dL Calcium (8.4-10.2) mg/dL Phosphorus (2.5-4.5) mg/dL Microbiology - Last 24 Hours (Table) 05/14/18 10:05 Bronchial Washings Culture - Preliminary Bronchial Washings - Left 05/14/18 10:05 Acid Fast Bacilli Culture - Preliminary Bronchial Washings - Left 05/14/18 10:05 Fungal Culture - Preliminary Bronchial Washings - Left 05/11/18 15:00 Blood Culture - Preliminary Blood No Growth after 48 hours 05/11/18 23:45 Urine Culture - Final Urine,Catheterized Assessment and Plan (1) Acute respiratory failure Narrative/Plan: intubated and sedated Current Visit: Yes Status: Acute Code(s): J96.00 - ACUTE RESPIRATORY FAILURE , UNSP W HYPOXIA OR HYPERCAPNIA SNOMED Code(s): 97112487 (2) Congestive heart failure Narrative/Plan: insulin drip diacontinued on lasi Q 12 Current Visit: Yes Status: Acute Code(s): I50.9 - HEART FAILURE, UNSPECIFIED SNOMED Code(s): 34642494 (3) Chronic renal insufficiency, stage III (moderate) Narrative/Plan: per renal vancomycin discontinued continued to monitor Current Visit: Yes Status: Acute Code(s): N18.3 - CHRONIC KIDNEY DISEASE, STAGE 3 (MODERATE) SNOMED Code(s): 940958463 (4) Sepsis Narrative/Plan: on levophed drip continue abx and continue per Critical care Current Visit: Yes Status: Acute Code(s): A41.9 - SEPSIS, UNSPECIFIED ORGANISM SNOMED Code(s): 05089227
[2018-05-14] MEDS: HEPARIN SOD,PORK IN 0.45% NACL 25,000 UNIT in 0.45% NACL 1 500ML.BAG IV SCH (16:56)
[2018-05-14 17:49] LABS: Iron Saturation 9.66 (12.00-45.00)
[2018-05-14 18:12] LABS: Glucose,Whole Blood 121 mg/dL (75-99)
[2018-05-14] MEDS: SODIUM CHLORIDE 0.9% 1,000 ML IV SCH (18:15)
--- NOTE | 2018-05-14 19:40 | P.PN ---
Subjective Progress Note Date: 05/14/18 This is a 67-year-old morbidly obese female that came into the emergency center yesterday with shortness of breath and lethargy. Patient apparently has been bedbound for the past 3 weeks due to shortness of breath. Patient has not been eating very much and also had diarrhea. She was treated outpatient with deficit and completed the course and was then placed on antidiarrheal agent. She was admitted 2 months ago at [facility] for heart failure. She required intubation in the emergency center. She was also found to have atrial fibrillation with RVR is currently on amiodarone drip. Cardiology is following. Nephrology is also following for acute kidney injury with BUN 44 and creatinine 2.59. Patient presented with leukocytosis but afebrile. Troponins were mildly elevated at 0.046, 0.049, 0.047. Albumin 2.6, TSH 1.550. C. difficile toxin was negative. Urinalysis was cloudy, leukoesterase large, WBC 33 and bacteria rare. Blood issuing no growth at 24 hours and urine culture is in progress. Patient is currently on norepinephrine, Lasix drip, amiodarone drip, heparin drip and sedation. He guarding antibiotics patient is on Azactam and vancomycin. Initial x-ray shows mild cardiomegaly and interstitial prominence. Correlate for heart failure and mild pulmonary vascular congestion. Small to moderate left and trace left pleural effusions with adjacent atelectasis and/or consolidation. Repeat chest x-ray this morning reveals improved aeration of the right upper lung. Haziness of the right hemidiaphragm likely represents a new trace right pleural effusion. Persistent retrocardiac obesity is favored to represent a small pleural effusion and left basilar atelectasis. Overall stable lines and tubes. Echocardiogram reveals EF of 3035%, moderate concentric left ventricular hypertrophy, elderly severely dilated, mild mitral regurgitation, moderate tricuspid regurgitation, moderate pulmonary hypertension. Regarding wounds, patient has stage II decubitus ulcer on the right buttocks, left hip and the shear-type injury to the right hip area there is mild cellulitis to the left pretibial area. Patient's bowel movements are currently soft. 05/14/2018 patient remains intubated sedated and mechanically ventilated but is now with a marked reduction in the amount of vasopressor therapy. Her sedation holiday earlier today was successful. However she had significant secretions on bronchoscopy was performed in large amounts of purulent secretions were suctioned. She is comfortable at this time. Objective - Vital Signs Vital signs: Vital Signs Temp 98.6 F 05/14/18 16:00 Pulse 93 05/14/18 19:00 Resp 18 05/14/18 19:00 BP 84/58 05/14/18 18:00 Pulse Ox 100 05/14/18 19:00 Intake & Output 05/14/18 05/14/18 05/15/18 06:59 18:59 06:59 Intake Total 732.622 7519.694 51.232 Output Total 1355 1200 125 Balance -432.715 986.694 -73.768 Weight 116.2 kg 116.2 kg Intake: IV 200 475 20 Aztreonam 1 gm In Sodium 100 Chloride 0.9% 50 ml @ 100 mls/hr IVPB Q8HR [facility] Rx# :[id number] Cefepime 1 gm In Sodium 100 Chloride 0.9% 50 ml @ 100 mls/hr IVPB Q12HR [facility] Rx #:[id number] Furosemide 250 mg In 80 5 Sodium Chloride 0.9% 225 ml @ 5 MG/HR 5 mls/hr IVP .Q24H [facility] Rx#:[id number] Sodium Chloride 0.9% 1, 120 220 20 000 ml @ 20 mls/hr IV . Q24H [facility] Rx#:[id number] Intake, IV Titration 610.285 941.694 3.232 Amount Amiodarone 450 mg In 250 Dextrose 5% in Water 250 ml @ 1 MG/MIN 33.33 mls/ hr IV .Q7H31M [facility] Rx#: [id number] Aztreonam 1 gm In Sodium 100 Chloride 0.9% 50 ml @ 100 mls/hr IVPB Q8HR [facility] Rx# :[id number] Heparin Sod,Pork in 0.45% 500 NaCl 25,000 unit In 0.45 % NaCl 1 500ml.bag @ 9.8 UNITS/KG/HR 21.91 mls/hr IV .[id number] [facility] Rx#: [id number] Norepinephrine 16 mg In 67.721 76.421 3.232 Dextrose 5% in Water 250 ml @ Titrate IV .Q0M [facility] Rx#:[id number] Propofol 1,000 mg In 292.564 265.273 Empty Bag 1 bag @ Titrate IV .Q0M [facility] Rx#: [id number] Tube Feeding 112 420 28 Other 350 Output: Urine 1355 1200 125 Other: Voiding Method Indwelling Catheter Indwelling Catheter ABP, PAP, CO, CI - Last Documented Arterial Blood Pressure 84/51 - Exam Gen: This is a morbidly obese 67-year-old female. Patient is intubated on mechanical ventilation and sedated. She appears to be comfortable and in no acute distress. HEENT: Head is atraumatic, normocephalic. Pupils equal, round. Sclerae is anicteric. Conjunctiva slightly pale. Mucous members of the mouth are dry. Oral gastric tube and ET tube in place. NECK: Supple. No JVD. No lymphadenopathy. No thyromegaly. LUNGS: Diminished bilaterally. No intercostal retractions. HEART: Irregularly irregular rate and rhythm. No murmur. ABDOMEN: Currently obese. Soft. Bowel sounds are present. No masses. No tenderness. No significant redness under her abdominal fold or breast. InterDry and nystatin powder in place. EXTREMITIES: Jared bilateral pedal edema. Waffle-type boots in place. There is erythema to the left pretibial area. NEUROLOGICAL: Patient is intubated sedated and mechanically ventilated. - Labs CBC & Chem 7: 05/14/18 04:50 05/14/18 04:50 Labs: Abnormal Lab Results - Last 24 Hours (Table) 05/13/18 05/13/18 05/14/18 Range/Units 22:00 23:58 04:50 WBC 15.0 H (3.8-10.6) k/uL RBC 3.16 L (3.80-5.40) m/uL Hgb 8.1 L (11.4-16.0) gm/dL Hct 26.8 L (34.0-46.0) % MCHC 30.1 L (31.0-37.0) g/dL RDW 18.8 H (11.5-15.5) % Neutrophils # 12.6 H (1.3-7.7) k/uL APTT (22.0-30.0) sec ABG pCO2 (35-45) mmHg ABG HCO3 (21-25) mmol/L ABG Total CO2 (19-24) mmol/L ABG O2 Saturation (94-97) % Sodium (137-145) mmol/L Chloride (98-107) mmol/L Carbon Dioxide (22-30) mmol/L BUN (7-17) mg/dL Creatinine (0.52-1.04) mg/dL Glucose (74-99) mg/dL POC Glucose (mg/dL) 141 H 161 H (75-99) mg/dL Calcium (8.4-10.2) mg/dL Phosphorus (2.5-4.5) mg/dL 05/14/18 05/14/18 05/14/18 Range/Units 04:50 04:50 04:58 WBC (3.8-10.6) k/uL RBC (3.80-5.40) m/uL Hgb (11.4-16.0) gm/dL Hct (34.0-46.0) % MCHC (31.0-37.0) g/dL RDW (11.5-15.5) % Neutrophils # (1.3-7.7) k/uL APTT 51.9 H (22.0-30.0) sec ABG pCO2 58 H (35-45) mmHg ABG HCO3 35 H (21-25) mmol/L ABG Total CO2 37 H (19-24) mmol/L ABG O2 Saturation 98.2 H (94-97) % Sodium 131 L (137-145) mmol/L Chloride 90 L (98-107) mmol/L Carbon Dioxide 34 H (22-30) mmol/L BUN 51 H (7-17) mg/dL Creatinine 2.80 H (0.52-1.04) mg/dL Glucose 117 H (74-99) mg/dL POC Glucose (mg/dL) (75-99) mg/dL Calcium 8.1 L (8.4-10.2) mg/dL Phosphorus 6.1 H (2.5-4.5) mg/dL 05/14/18 05/14/18 Range/Units 12:56 18:09 WBC (3.8-10.6) k/uL RBC (3.80-5.40) m/uL Hgb (11.4-16.0) gm/dL Hct (34.0-46.0) % MCHC (31.0-37.0) g/dL RDW (11.5-15.5) % Neutrophils # (1.3-7.7) k/uL APTT (22.0-30.0) sec ABG pCO2 (35-45) mmHg ABG HCO3 (21-25) mmol/L ABG Total CO2 (19-24) mmol/L ABG O2 Saturation (94-97) % Sodium (137-145) mmol/L Chloride (98-107) mmol/L Carbon Dioxide (22-30) mmol/L BUN (7-17) mg/dL Creatinine (0.52-1.04) mg/dL Glucose (74-99) mg/dL POC Glucose (mg/dL) 122 H 121 H (75-99) mg/dL Calcium (8.4-10.2) mg/dL Phosphorus (2.5-4.5) mg/dL Microbiology - Last 24 Hours (Table) 05/11/18 15:00 Blood Culture - Preliminary Blood No Growth after 72 hours 05/14/18 10:05 Bronchial Washings Culture - Preliminary Bronchial Washings - Left 05/14/18 10:05 Acid Fast Bacilli Culture - Preliminary Bronchial Washings - Left 05/14/18 10:05 Fungal Culture - Preliminary Bronchial Washings - Left Laboratory Results WBC 15.0 k/uL (3.8-10.6) H 05/14/18 04:50 RBC 3.16 m/uL (3.80-5.40) L 05/14/18 04:50 Hgb 8.1 gm/dL (11.4-16.0) L 05/14/18 04:50 Hct 26.8 % (34.0-46.0) L 05/14/18 04:50 MCV 84.9 fL (80.0-100.0) 05/14/18 04:50 MCH 25.5 pg (25.0-35.0) 05/14/18 04:50 MCHC 30.1 g/dL (31.0-37.0) L 05/14/18 04:50 RDW 18.8 % (11.5-15.5) H 05/14/18 04:50 Plt Count 410 k/uL (150-450) 05/14/18 04:50 Neutrophils % 84 % 05/14/18 04:50 Lymphocytes % 8 % 05/14/18 04:50 Monocytes % 6 % 05/14/18 04:50 Eosinophils % 0 % 05/14/18 04:50 Basophils % 0 % 05/14/18 04:50 Neutrophils # 12.6 k/uL (1.3-7.7) H 05/14/18 04:50 Lymphocytes # 1.2 k/uL (1.0-4.8) 05/14/18 04:50 Monocytes # 0.9 k/uL (0-1.0) 05/14/18 04:50 Eosinophils # 0.1 k/uL (0-0.7) 05/14/18 04:50 Basophils # 0.0 k/uL (0-0.2) 05/14/18 04:50 Hypochromasia Marked 05/14/18 04:50 Poikilocytosis Slight 05/11/18 15:00 Anisocytosis Slight 05/14/18 04:50 PT 11.2 sec (9.0-12.0) 05/11/18 15:00 INR 1.2 (<1.2) H 05/11/18 15:00 APTT 51.9 sec (22.0-30.0) H 05/14/18 04:50 D-Dimer 0.57 mg/L FEU (<0.60) 05/11/18 15:00 Sample Site [place] 05/14/18 04:58 ABG pH 7.40 (7.35-7.45) 05/14/18 04:58 ABG pCO2 58 mmHg (35-45) H 05/14/18 04:58 ABG pO2 95 mmHg (83-108) 05/14/18 04:58 ABG HCO3 35 mmol/L (21-25) H 05/14/18 04:58 ABG Total CO2 37 mmol/L (19-24) H 05/14/18 04:58 ABG O2 Saturation 98.2 % (94-97) H 05/14/18 04:58 ABG Base Excess 10.4 mmol/L 05/14/18 04:58 Juancarlos Test Yes 05/14/18 04:58 FiO2 45 % 05/14/18 04:58 Sodium 131 mmol/L (137-145) L 05/14/18 04:50 Potassium 3.9 mmol/L (3.5-5.1) 05/14/18 04:50 Chloride 90 mmol/L (98-107) L 05/14/18 04:50 Carbon Dioxide 34 mmol/L (22-30) H 05/14/18 04:50 Anion Gap 7 mmol/L 05/14/18 04:50 BUN 51 mg/dL (7-17) H 05/14/18 04:50 Creatinine 2.80 mg/dL (0.52-1.04) H 05/14/18 04:50 Est GFR (CKD-EPI)AfAm 20 (>60 ml/min/1.73 sqM) 05/14/18 04:50 Est GFR (CKD-EPI)NonAf 17 (>60 ml/min/1.73 sqM) 05/14/18 04:50 Glucose 117 mg/dL (74-99) H 05/14/18 04:50 POC Glucose (mg/dL) 121 mg/dL (75-99) H 05/14/18 18:09 POC Glu [employer] RENEA DavidChantelle 05/14/18 18:09 Plasma Lactic Acid Terence 1.9 mmol/L (0.7-2.0) 05/11/18 15:00 Calcium 8.1 mg/dL (8.4-10.2) L 05/14/18 04:50 Phosphorus 6.1 mg/dL (2.5-4.5) H 05/14/18 04:50 Magnesium 2.3 mg/dL (1.6-2.3) 05/14/18 04:50 Total Bilirubin 0.4 mg/dL (0.2-1.3) 05/11/18 15:00 AST 16 U/L (14-36) 05/11/18 15:00 ALT 30 U/L (9-52) 05/11/18 15:00 Alkaline Phosphatase 128 U/L (38-126) H 05/11/18 15:00 Total Creatine Kinase 40 U/L (30-135) 05/11/18 15:00 CK-MB (CK-2) 1.2 ng/mL (0.0-2.4) 05/11/18 15:00 CK-MB (CK-2) Rel Index 3.0 05/11/18 15:00 Troponin I 0.047 ng/mL (0.000-0.034) H* 05/12/18 03:06 NT-Pro-B Natriuret Pep 5490 pg/mL 05/11/18 15:00 Total Protein 4.9 g/dL (6.3-8.2) L 05/11/18 15:00 Albumin 2.6 g/dL (3.5-5.0) L 05/11/18 15:00 TSH 1.550 mIU/L (0.465-4.680) 05/11/18 22:44 Urine Color Yellow 05/11/18 23:45 Urine Appearance Cloudy (Clear) H 05/11/18 23:45 Urine pH 5.0 (5.0-8.0) 05/11/18 23:45 Ur Specific Marcus 1.012 (1.001-1.035) 05/11/18 23:45 Urine Protein Negative (Negative) 05/11/18 23:45 Urine Glucose (UA) Negative (Negative) 05/11/18 23:45 Urine Ketones Negative (Negative) 05/11/18 23:45 Urine Blood Negative (Negative) 05/11/18 23:45 Urine Nitrite Negative (Negative) 05/11/18 23:45 Urine Bilirubin Negative (Negative) 05/11/18 23:45 Urine Urobilinogen <2.0 mg/dL (<2.0) 05/11/18 23:45 Ur Leukocyte Esterase Large (Negative) H 05/11/18 23:45 Urine RBC 2 /hpf (0-5) 05/11/18 23:45 Urine WBC 33 /hpf (0-5) H 05/11/18 23:45 Ur Squamous Epith Cells <1 /hpf (0-4) 05/11/18 23:45 Amorphous Sediment Rare /hpf (None) H 05/11/18 23:45 Urine Bacteria Rare /hpf (None) H 05/11/18 23:45 Hyaline Casts 49 /lpf (0-2) H 05/11/18 23:45 Urine Mucus Rare /hpf (None) H 05/11/18 23:45 Random Vancomycin 20.5 ug/mL 05/14/18 04:50 C. difficile (EIA) Intrp Negative (Negative) 05/12/18 08:53 Microbiology 05/11/18 15:00 Blood Blood Culture - Preliminary No Growth after 72 hours 05/14/18 10:05 Bronchial Washings - Left Bronchial Washings Culture - Preliminary 05/14/18 10:05 Bronchial Washings - Left Acid Fast Bacilli Culture - Preliminary 05/14/18 10:05 Bronchial Washings - Left Fungal Culture - Preliminary 05/11/18 23:45 Urine,Catheterized Urine Culture - Final Assessment and Plan (1) Acute respiratory failure Current Visit: Yes Status: Acute Code(s): J96.00 - ACUTE RESPIRATORY FAILURE , UNSP W HYPOXIA OR HYPERCAPNIA SNOMED Code(s): 33650128 (2) COPD (chronic obstructive pulmonary disease) Current Visit: Yes Status: Acute Code(s): J44.9 - CHRONIC OBSTRUCTIVE PULMONARY DISEASE, UNSPECIFIED SNOMED Code(s): 54995463 (3) Pressure ulcer of buttock Narrative/Plan: 67-year-old presents to Hospital respiratory failure remains intubated sedated and mechanically ventilated, bronchoscopy is occurred today with further help direct antibiotic therapy in the coming days. As far as her pressure ulcerations that are present at admission they're stable this point in time and continue local wound care, she is offloading of the specialty bed in the ICU. She is receiving nutrition which important for wound healing. Current Visit: Yes Status: Acute Code(s): L89.309 - PRESSURE ULCER OF UNSPECIFIED BUTTOCK, UNSPECIFIED STAGE SNOMED Code(s): 999852469
[2018-05-14] MEDS: FUROSEMIDE 10 MG/ML 4 ML VIAL IV SCH (20:20)
[2018-05-14] MEDS ORDERED: VANCOMYCIN 1,500 MG in SODIUM CHLORIDE 0.9% 250 ML IVPB ONE (21:00)
[2018-05-15] MEDS: INSULIN ASPART 100 UNIT/ML 1 ML 10 ML VIAL SQ SCH ×5 (00:01→23:13)
[2018-05-15 00:02] LABS: Glucose,Whole Blood 111 mg/dL (75-99)
[2018-05-15] MEDS: IPRATROPIUM-ALBUTEROL 3 ML NEB INHALATION SCH ×5 (03:14→20:41)
[2018-05-15] MEDS: PROPOFOL 1,000 MG in EMPTY BAG 1 BAG IV SCH ×2 (03:48→09:38)
[2018-05-15 04:28] LABS: ABG Base Excess 11.6 mmol/L; ABG HCO3 36 mmol/L (21-25); ABG Oxygen Saturation 98.4 % (94-97); ABG PCO2 60 mmHg (35-45); ABG PO2 96 mmHg (83-108); ABG TCO2 38 mmol/L (19-24)
[2018-05-15 04:50] LABS: Anisocytosis Slight; Basophils # (A) 0.1 k/uL (0-0.2); Basophils % (A) 1 %; Eosinophils # (A) 0.1 k/uL (0-0.7); Eosinophils % (A) 0 %; HCT 25.7 % (34.0-46.0); HGB 7.7 gm/dL (11.4-16.0); Hypochromasia Marked; Lymphocytes # (A) 1.2 k/uL (1.0-4.8); Lymphocytes % (A) 7 %; MCH 25.7 pg (25.0-35.0); MCV 85.8 fL (80.0-100.0); Mean Platelet Volume 7.8; Monocytes # (A) 1.1 k/uL (0-1.0); Monocytes % (A) 6 %; Neutrophils # (A) 14.4 k/uL (1.3-7.7); Neutrophils % (A) 84 %; Platelet Count 331 k/uL (150-450); RBC 2.99 m/uL (3.80-5.40); RDW 18.6 % (11.5-15.5); WBC 17.1 k/uL (3.8-10.6)
[2018-05-15 05:23] LABS: Calcium 7.8 mg/dL (8.4-10.2); Magnesium 1.9 mg/dL (1.6-2.3); Phosphorus 6.1 mg/dL (2.5-4.5); Potassium 3.5 mmol/L (3.5-5.1)
[2018-05-15 05:25] LABS: Glucose,Whole Blood 122 mg/dL (75-99)
[2018-05-15] MEDS ORDERED: Potassium Replacement Protocol 1 EACH MISC MISCELLANE PRN (06:45)
[2018-05-15] MEDS ORDERED: MAGNESIUM SULFATE-D5W PMX 1 GM in DEXTROSE/WATER 1 100ML.BAG IVPB ONE (06:47)
[2018-05-15] MEDS ORDERED: Magnesium Replacement Protocol 1 EACH MISC MISCELLANE PRN (06:47)
--- NOTE | 2018-05-15 06:48 | XR ---
EXAMINATION TYPE: XR chest 1V portable DATE OF EXAM: 05/15/2018 HISTORY: Tube placement. REFERENCE: Previous study dated 05/14/2018. FINDINGS: The patient is ET tube, NG tube and right subclavian catheter remain in place, unchanged in appearance. There is improved aeration of the left lung. There continues to be left basilar airspace disease. The re is a left-sided effusion and a smaller right-sided effusion. There is vascular congestion without celia edema. IMPRESSION: MARKED IMPROVEMENT IN THE AERATION OF THE LEFT LUNG.
[2018-05-15] MEDS ORDERED: POTASSIUM BICARBONATE/CIT AC 20 MEQ TABLET.EFF NG-TUBE SCH (07:00)
[2018-05-15] MEDS: AMIODARONE 200 MG TAB PO SCH ×3 (08:26→21:22)
[2018-05-15] MEDS: GENTAMICIN 0.1% CREAM 15 GM TUBE TOPICAL SCH (08:27)
[2018-05-15] MEDS: PANTOPRAZOLE 40 MG/10 ML VIAL IV SCH (08:27)
[2018-05-15] MEDS: CHLORHEXIDINE GLUCONATE 15 ML CUP MUCOUS MEM SCH (08:27)
[2018-05-15] MEDS: FUROSEMIDE 10 MG/ML 4 ML VIAL IV SCH (08:27)
[2018-05-15] MEDS: CEFEPIME 1 GM in SODIUM CHLORIDE 0.9% 50 ML IVPB SCH (08:27)
[2018-05-15] MEDS: ASPIRIN 325 MG TAB PO SCH (08:27)
[2018-05-15] MEDS: AZTREONAM 1 GM in SODIUM CHLORIDE 0.9% 50 ML IVPB SCH ×3 (09:07→23:07)
--- NOTE | 2018-05-15 09:32 | P.PN ---
Subjective Patient is seen in follow-up for acute kidney injury. Unclear as to what her baseline renal function is. Creatinine is up to 2.9 today. Patient presented with weakness and was noted to be due to fibrillation with RVR. Currently on oral amiodarone. She is currently on 4 mics of Levophed. She is noted to have systolic CHF with ejection fraction of 30-35%. She is maintained on tube feeds. Lasix drip has been discontinued and is currently maintained on Lasix 40 mg IV twice daily. She is nonoliguric. Vital signs are stable. Requiring 4 mics of Levophed. General: The patient appeared well nourished and normally developed. HEENT: Head exam is unremarkable. Neck is without jugular venous distension. LUNGS: Breath sounds decreased. HEART: Rate and Rhythm are regular. First and second heart sounds normal. No murmurs, rubs or gallops. ABDOMEN: Abdominal exam reveals normal bowel sounds. Non-tender and non- distended. No evidence of peritonitis. EXTREMITITES: No clubbing, cyanosis, or edema. Objective - Vital Signs Vital signs: Vital Signs Temp 97.3 F L 05/15/18 08:00 Pulse 101 H 05/15/18 08:30 Resp 17 05/15/18 08:30 BP 88/53 05/14/18 22:00 Pulse Ox 100 05/15/18 08:30 Intake & Output 05/14/18 05/15/18 05/15/18 18:59 06:59 18:59 Intake Total 2186.694 1219.065 346 Output Total 1200 1950 305 Balance 986.694 -730.935 41 Weight 116.2 kg 114.6 kg Intake: IV 475 500 260 Aztreonam 1 gm In Sodium 100 50 50 Chloride 0.9% 50 ml @ 100 mls/hr IVPB Q8HR [facility] Rx# :[id number] Cefepime 1 gm In Sodium 100 50 Chloride 0.9% 50 ml @ 100 mls/hr IVPB Q12HR [facility] Rx #:[id number] Furosemide 250 mg In 5 Sodium Chloride 0.9% 225 ml @ 5 MG/HR 5 mls/hr IVP .Q24H [facility] Rx#:[id number] Magnesium Sulfate-D5w Pmx 100 1 gm In Dextrose/Water 1 100ml.bag @ 100 mls/hr IVPB ONCE ONE Rx#: [id number] Sodium Chloride 0.9% 1, 220 200 60 000 ml @ 20 mls/hr IV . Q24H ON LICENSE OF [facility] Rx#:[id number] Vancomycin 1,500 mg In 250 Sodium Chloride 0.9% 250 ml @ 125 mls/hr IVPB ONCE ONE Rx#:[id number] Intake, IV Titration 941.694 293.065 Amount Aztreonam 1 gm In Sodium 100 Chloride 0.9% 50 ml @ 100 mls/hr IVPB Q8HR ON LICENSE OF [facility] Rx# :[id number] Heparin Sod,Pork in 0.45% 500 NaCl 25,000 unit In 0.45 % NaCl 1 500ml.bag @ 9.8 UNITS/KG/HR 21.91 mls/hr IV .[id number] ON LICENSE OF [facility] Rx#: [id number] Norepinephrine 16 mg In 76.421 48.457 Dextrose 5% in Water 250 ml @ Titrate IV .Q0M [facility] Rx#:[id number] Propofol 1,000 mg In 265.273 244.608 Empty Bag 1 bag @ Titrate IV .Q0M ON LICENSE OF [facility] Rx#: [id number] Tube Feeding 420 336 56 Other 350 90 30 Output: Urine 1200 1950 305 Other: Voiding Method Indwelling Catheter Indwelling Catheter ABP, PAP, CO, CI - Last Documented Arterial Blood Pressure 98/67 - Labs CBC & Chem 7: 05/15/18 04:40 05/15/18 04:40 Labs: Abnormal Lab Results - Last 24 Hours (Table) 05/14/18 05/14/18 05/15/18 Range/Units 12:56 18:09 00:00 WBC (3.8-10.6) k/uL RBC (3.80-5.40) m/uL Hgb (11.4-16.0) gm/dL Hct (34.0-46.0) % MCHC (31.0-37.0) g/dL RDW (11.5-15.5) % Neutrophils # (1.3-7.7) k/uL Monocytes # (0-1.0) k/uL APTT (22.0-30.0) sec ABG pCO2 (35-45) mmHg ABG HCO3 (21-25) mmol/L ABG Total CO2 (19-24) mmol/L ABG O2 Saturation (94-97) % Sodium (137-145) mmol/L Chloride (98-107) mmol/L Carbon Dioxide (22-30) mmol/L BUN (7-17) mg/dL Creatinine (0.52-1.04) mg/dL Glucose (74-99) mg/dL POC Glucose (mg/dL) 122 H 121 H 111 H (75-99) mg/dL Calcium (8.4-10.2) mg/dL Phosphorus (2.5-4.5) mg/dL 05/15/18 05/15/18 05/15/18 Range/Units 04:26 04:40 04:40 WBC 17.1 H (3.8-10.6) k/uL RBC 2.99 L (3.80-5.40) m/uL Hgb 7.7 L (11.4-16.0) gm/dL Hct 25.7 L (34.0-46.0) % MCHC 30.0 L (31.0-37.0) g/dL RDW 18.6 H (11.5-15.5) % Neutrophils # 14.4 H (1.3-7.7) k/uL Monocytes # 1.1 H (0-1.0) k/uL APTT (22.0-30.0) sec ABG pCO2 60 H (35-45) mmHg ABG HCO3 36 H (21-25) mmol/L ABG Total CO2 38 H (19-24) mmol/L ABG O2 Saturation 98.4 H (94-97) % Sodium 130 L (137-145) mmol/L Chloride 89 L (98-107) mmol/L Carbon Dioxide 36 H (22-30) mmol/L BUN 55 H (7-17) mg/dL Creatinine 2.90 H (0.52-1.04) mg/dL Glucose 107 H (74-99) mg/dL POC Glucose (mg/dL) (75-99) mg/dL Calcium 7.8 L (8.4-10.2) mg/dL Phosphorus 6.1 H (2.5-4.5) mg/dL 05/15/18 05/15/18 Range/Units 04:40 05:23 WBC (3.8-10.6) k/uL RBC (3.80-5.40) m/uL Hgb (11.4-16.0) gm/dL Hct (34.0-46.0) % MCHC (31.0-37.0) g/dL RDW (11.5-15.5) % Neutrophils # (1.3-7.7) k/uL Monocytes # (0-1.0) k/uL APTT 49.6 H (22.0-30.0) sec ABG pCO2 (35-45) mmHg ABG HCO3 (21-25) mmol/L ABG Total CO2 (19-24) mmol/L ABG O2 Saturation (94-97) % Sodium (137-145) mmol/L Chloride (98-107) mmol/L Carbon Dioxide (22-30) mmol/L BUN (7-17) mg/dL Creatinine (0.52-1.04) mg/dL Glucose (74-99) mg/dL POC Glucose (mg/dL) 122 H (75-99) mg/dL Calcium (8.4-10.2) mg/dL Phosphorus (2.5-4.5) mg/dL Microbiology - Last 24 Hours (Table) 05/14/18 10:05 Gram Stain - Preliminary Bronchial Washings - Left Bronchial Washings Culture - Preliminary 05/14/18 10:05 Acid Fast Bacilli Smear - Final Bronchial Washings - Left Acid Fast Bacilli Culture - Preliminary 05/11/18 15:00 Blood Culture - Preliminary Blood No Growth after 72 hours 05/14/18 10:05 Fungal Culture - Preliminary Bronchial Washings - Left Assessment and Plan Plan: Assessment: 1. Nonoliguric acute kidney injury secondary to ATN secondary to hemodynamic instability along with component of cardiorenal syndrome. Unclear as to what her baseline renal function is. Creatinine up to 2.9 today. No proteinuria noted on urinalysis. 2. Atrial fibrillation with RVR. Now maintain on oral amiodarone. 3. Systolic CHF with ejection fraction of 30-35%. 4. Hypotension maintained on 4 mics of Levophed. 5. Volume overload. Improving. 6. Hypokalemia secondary to diuresis. 7. Hyponatremia secondary to acute kidney injury. Plan: Patient has excellent urine output. Hold off on Lasix for now. Maintain tube feeds. Wean vasopressors. Extubation trial today. Avoid nephrotoxic agents and hypotensive episodes. Potassium and magnesium have been replaced.
[2018-05-15 10:55] LABS: ABG Base Excess 10.2 mmol/L; ABG HCO3 36 mmol/L (21-25); ABG Oxygen Saturation 97.7 % (94-97); ABG PCO2 65 mmHg (35-45); ABG PH 7.37 (7.35-7.45); ABG PO2 104 mmHg (83-108)
--- NOTE | 2018-05-15 11:04 | P.PN ---
Subjective Progress Note Date: 05/15/18 This is a 67-year-old female with history of multiple medical problems including chronic hypercapnic respiratory failure, obstructive sleep apnea syndrome, COPD, patient is on home oxygen at 3 L, she is also on BiPAP and seems to be nocturnally BiPAP dependent. Patient is also known to have history of chronic atrial fibrillation, chronic decubitus ulcers, superficial leg ulcers , patient has a visiting nurse taking care of her ulcers and chronic wounds. She was noted by the visiting nurse to be dyspneic, for at least 24 hours prior to presentation. Patient has been using oxygen at home, BiPAP, and she is also on updrafts in the form of DuoNeb. Considering the patient was not noticing significant improvement, patient was advised to come to the ER. Upon arrival to the ER, patient was noted to be quite dyspneic, and did not improve much with BiPAP. Hence she was intubated by Dr. Steve Roberts, placed on mechanical ventilation, admitted to the ICU and this consult was initiated. Presently the patient is on the following ventilator settings tidal volume of 400 assist control rate of 18 FiO2 of 50% and PEEP of 5. She is in atrial fibrillation with RVR, placed on amiodarone to replace Cardizem as per cardiology. Her echocardiogram showed severe ventricular dysfunction ejection fraction of 30-35% . Hence the patient was placed on Lasix drip. Chest x-ray did show evidence of pulmonary edema. Echocardiogram also showed evidence of moderate pulmonary hypertension with a right-sided pressures in the range of 50. Patient was recently diagnosed as having C. difficile colitis, and has been on deficid on outpatient basis. ABG this morning showed a pO2 of 109 pCO2 of 60 pH of 7.43, hence I cut down the FiO2 to 45%. And I kept the same ventilator settings are unchanged. Renal functioning was noted to be abnormal creatinine is 1.90 BUN is 39 however the patient is known to have history of chronic kidney disease stage III. ProBNP level was noted to be elevated over 5500. Troponin was borderline elevated. Urine showed pyuria and bacteriuria suggestive of urinary tract infection. Patient was empirically placed on aztreonam and vancomycin. Infectious disease consultation was also initiated. On today's evaluation of 05/13/2018 I'm seeing this patient for a follow-up. The patient is sedated with Diprivan at 30 g per KG pigmented. The patient is calm and comfortable. She remains on a mechanical ventilator on assist control mode at the rate of 18, tidal volume of 400, FiO2 of 45% and a PEEP of 5. The pH is at 7.39 with a pCO2 of 60 and pO2 of 124. The peak airway pressures around 33-34 and the static airway pressures around 17. Chest x-ray shows shows improved aeration of the right upper lobe. There is haziness along the right hemidiaphragm possibly related to some trace bilateral pleural effusion and atelectatic changes in lung bases. ET tube is in a good location. There is also a right IJ triple-lumen catheter in place. Hemodynamically, the patient is still requiring pressors. This morning she was and 6 mics of norepinephrine infusion for blood pressure control. At the same time the patient was in atrial fibrillation with slight tachycardia and the heart rate was in the low 100s range. The patient was started on amiodarone and the patient was being loaded and she was on 1 mg/m of an amiodarone drip. At the same time, the patient is on Lasix drip at the dose of 10 mg an hour. CVP was checked and was at 16. The patient was afebrile. The patient had an echocardiogram that showed an ejection fraction of 30-35% consistent with moderate severe LV dysfunction. The symptom the patient moderate concentric left ventricular hypertrophy, as he was severely dilated, there is moderate degree of pulmonary hypertension with a PA pressure of around 49. The urine output was in the order of 20 mL an hour. Her net fluid balance is +3.6 L yesterday. The renal function remains impaired and the creatinine is at 2.59 consistent with acute on top of chronic renal failure. She is currently receiving tube feeds which is also at goal. Stool for C. diff was negative. The patient is on empiric antibiotic coverage with IV aztreonam and vancomycin. The choice of aztreonam was made due to concern of an underlying urine checked infection knowing that the patient's UA was abnormal at the time of admission. There is questionable cirrhotic changes in the left lower extremity and the patient is covered with vancomycin. No open wounds or sores are than stage II ulcer in the back and buttock area. On today's evaluation of 05/14/2018, the patient is being seen for a follow-up. The patient remains intubated on a mechanical ventilator. This morning, she is sedated and she is calm and comfortable. She is on Diprivan which is running at 30 g per KG pigmented. She will receive her daily sedation holiday today and her underlying mentation will be assessed. She remains on a mechanical ventilator. She is an assist-control mode of ventilation at the rate of 18, tidal volume of 400, FiO2 of 45% and a PEEP of 5. She is intubated by #7.582. On today's chest x-ray, there is cardiomegaly and there is further volume loss and consolidation of the left lower lobe and I do suspect a partial atelectasis of the left lung probably related to endobronchial secretions as the patient is having thick purulent rest or secretions upon suctioning. Overall, she is afebrile. She is covered with a combination of as active and vancomycin. There was concern for a urine infection yesterday and the blood cultures and urine cultures still pending and they're negative for now. However , the patient is still pressor dependent and she is on Mics of norepinephrine infusion for blood pressure control. Her mean arterial pressures above 65. Her urine output improved overnight and she is producing more than 100 mL an hour on an hourly basis. Her creatinine is up to 2.8. Nephrology valve that the patient stop the Lasix drip and she'll be receiving Lasix pushes 40 mg every 12 hours. Also, she is still in nature fibrillation rhythm. Rate is controlled. She is on amiodarone 1 mg/m which I intend to stop today as the patient's rate is under good control the patient is also on IV heparin for anticoagulation regards to her atrial fibrillation. She will feeds are in the form of vital high protein and the patient is at goal at 28 mL an hour. No diarrhea. No abdominal distention. No other significant events overnight. On 05/15/2018, the patient is being seen for a follow-up. Still on a mechanical ventilator. Events from yesterday were noted. The patient had a bronchoscopy yesterday due to volume loss and consolidation of the left lung. The patient had purulent respiratory secretions and seborrheic it was suctioning was done. On today's chest x-ray there is improved aeration of the left lung. She remains on the same vent setting which included assist control of 18, tidal volume of 400, FiO2 of 40% and a PEEP of 5. The blood gases from today showed a pH of 7.4 with pCO2 of 60 and a pO2 of 96. The patient is afebrile. The patient on a broad-spectrum antibiotic coverage requiring a combination of cefepime, vancomycin, and aztreonam. Cultures still pending from the bronchial alveolar lavage. Afebrile. Her disease on few mics of levo fed for blood pressure control. She is producing adequate amount of urine output. Urine output is more than 100 mL an hour and the Lasix has been completely discontinued. White cell count is at 17.1. Creatinine is at 2.9. The patient is currently off amiodarone drip. Her cardiac rhythm atrial fibrillation with a controlled rate. Creatinine is at 2.9. Objective - Vital Signs Vital signs: Vital Signs Temp 97.3 F L 05/15/18 08:00 Pulse 93 05/15/18 09:30 Resp 18 05/15/18 09:30 BP 88/53 05/14/18 22:00 Pulse Ox 97 05/15/18 09:30 Intake & Output 05/14/18 05/15/18 05/15/18 18:59 06:59 18:59 Intake Total 2186.694 1219.065 452.179 Output Total 1200 1950 305 Balance 986.694 -730.935 147.179 Weight 116.2 kg 114.6 kg Intake: IV 475 500 260 Aztreonam 1 gm In Sodium 100 50 50 Chloride 0.9% 50 ml @ 100 mls/hr IVPB Q8HR [facility] Rx# :[id number] Cefepime 1 gm In Sodium 100 50 Chloride 0.9% 50 ml @ 100 mls/hr IVPB Q12HR [facility] Rx #:[id number] Furosemide 250 mg In 5 Sodium Chloride 0.9% 225 ml @ 5 MG/HR 5 mls/hr IVP .Q24H PENDING SALE TO [facility] Rx#:[id number] Magnesium Sulfate-D5w Pmx 100 1 gm In Dextrose/Water 1 100ml.bag @ 100 mls/hr IVPB ONCE ONE Rx#: [id number] Sodium Chloride 0.9% 1, 220 200 60 000 ml @ 20 mls/hr IV . Q24H PENDING SALE TO [facility] Rx#:[id number] Vancomycin 1,500 mg In 250 Sodium Chloride 0.9% 250 ml @ 125 mls/hr IVPB ONCE ONE Rx#:[id number] Intake, IV Titration 941.694 293.065 106.179 Amount Aztreonam 1 gm In Sodium 100 Chloride 0.9% 50 ml @ 100 mls/hr IVPB Q8HR PENDING SALE TO [facility] Rx# :[id number] Heparin Sod,Pork in 0.45% 500 NaCl 25,000 unit In 0.45 % NaCl 1 500ml.bag @ 9.8 UNITS/KG/HR 21.91 mls/hr IV .[id number] [facility] Rx#: [id number] Norepinephrine 16 mg In 76.421 48.457 5.25 Dextrose 5% in Water 250 ml @ Titrate IV .Q0M [facility] Rx#:[id number] Propofol 1,000 mg In 265.273 244.608 100.929 Empty Bag 1 bag @ Titrate IV .Q0M PENDING SALE TO [facility] Rx#: [id number] Tube Feeding 420 336 56 Other 350 90 30 Output: Urine 1200 1950 305 Other: Voiding Method Indwelling Catheter Indwelling Catheter ABP, PAP, CO, CI - Last Documented Arterial Blood Pressure 93/61 - Exam Gen. appearance obese, comfortable likely distress sedated intubated on a mechanical ventilator. 6 was with the mechanical ventilator. Head exam was generally normal. There was no scleral icterus or corneal arcus. Mucous membranes were moist. Neck was supple and without jugular venous distension, thyromegaly, or carotid bruits. Carotids were easily palpable bilaterally. There was no adenopathy. The patient has a right IJ triple-lumen catheter in place. Lungs sounds are diminished bilaterally along with some few scattered external wheezes heard throughout the lung loyd. Breath sounds are overall diminished. Heart sounds are irregular S1-S2, no cervical murmurs appreciated. Monitor the current heave or thrill. Abdomen is obese soft nontender. Organs cannot be accurately palpated. No direct tenderness. No rebound tenderness. No guarding. Extremities revealed +1 pitting edema and there is no cyanosis or clubbing at this point. No evidence of any acute cellulitis although there is some erythema in the left lower extremity. Skin shows a stage II small wounds in the butt and the back area. No open wounds or sores. No evidence of any cellulitis. Neurologically patient is sedated and there is no focal neurological deficit at this point. She withdraws to painful stimuli and she is a daily arousable from sedation as the patient was given a sedation holiday today. - Labs CBC & Chem 7: 05/15/18 04:40 05/15/18 04:40 Labs: Abnormal Lab Results - Last 24 Hours (Table) 05/14/18 05/14/18 05/15/18 Range/Units 12:56 18:09 00:00 WBC (3.8-10.6) k/uL RBC (3.80-5.40) m/uL Hgb (11.4-16.0) gm/dL Hct (34.0-46.0) % MCHC (31.0-37.0) g/dL RDW (11.5-15.5) % Neutrophils # (1.3-7.7) k/uL Monocytes # (0-1.0) k/uL APTT (22.0-30.0) sec ABG pCO2 (35-45) mmHg ABG HCO3 (21-25) mmol/L ABG Total CO2 (19-24) mmol/L ABG O2 Saturation (94-97) % Sodium (137-145) mmol/L Chloride (98-107) mmol/L Carbon Dioxide (22-30) mmol/L BUN (7-17) mg/dL Creatinine (0.52-1.04) mg/dL Glucose (74-99) mg/dL POC Glucose (mg/dL) 122 H 121 H 111 H (75-99) mg/dL Calcium (8.4-10.2) mg/dL Phosphorus (2.5-4.5) mg/dL 05/15/18 05/15/18 05/15/18 Range/Units 04:26 04:40 04:40 WBC 17.1 H (3.8-10.6) k/uL RBC 2.99 L (3.80-5.40) m/uL Hgb 7.7 L (11.4-16.0) gm/dL Hct 25.7 L (34.0-46.0) % MCHC 30.0 L (31.0-37.0) g/dL RDW 18.6 H (11.5-15.5) % Neutrophils # 14.4 H (1.3-7.7) k/uL Monocytes # 1.1 H (0-1.0) k/uL APTT (22.0-30.0) sec ABG pCO2 60 H (35-45) mmHg ABG HCO3 36 H (21-25) mmol/L ABG Total CO2 38 H (19-24) mmol/L ABG O2 Saturation 98.4 H (94-97) % Sodium 130 L (137-145) mmol/L Chloride 89 L (98-107) mmol/L Carbon Dioxide 36 H (22-30) mmol/L BUN 55 H (7-17) mg/dL Creatinine 2.90 H (0.52-1.04) mg/dL Glucose 107 H (74-99) mg/dL POC Glucose (mg/dL) (75-99) mg/dL Calcium 7.8 L (8.4-10.2) mg/dL Phosphorus 6.1 H (2.5-4.5) mg/dL 05/15/18 05/15/18 Range/Units 04:40 05:23 WBC (3.8-10.6) k/uL RBC (3.80-5.40) m/uL Hgb (11.4-16.0) gm/dL Hct (34.0-46.0) % MCHC (31.0-37.0) g/dL RDW (11.5-15.5) % Neutrophils # (1.3-7.7) k/uL Monocytes # (0-1.0) k/uL APTT 49.6 H (22.0-30.0) sec ABG pCO2 (35-45) mmHg ABG HCO3 (21-25) mmol/L ABG Total CO2 (19-24) mmol/L ABG O2 Saturation (94-97) % Sodium (137-145) mmol/L Chloride (98-107) mmol/L Carbon Dioxide (22-30) mmol/L BUN (7-17) mg/dL Creatinine (0.52-1.04) mg/dL Glucose (74-99) mg/dL POC Glucose (mg/dL) 122 H (75-99) mg/dL Calcium (8.4-10.2) mg/dL Phosphorus (2.5-4.5) mg/dL Microbiology - Last 24 Hours (Table) 05/14/18 10:05 Gram Stain - Preliminary Bronchial Washings - Left Bronchial Washings Culture - Preliminary 05/14/18 10:05 Acid Fast Bacilli Smear - Final Bronchial Washings - Left Acid Fast Bacilli Culture - Preliminary 05/11/18 15:00 Blood Culture - Preliminary Blood No Growth after 72 hours 05/14/18 10:05 Fungal Culture - Preliminary Bronchial Washings - Left Assessment and Plan Plan: Assessment 1 acute on top of chronic hypoxic and hypercapnic respiratory failure. 2 acute respiratory failure, hypoxic and hypercapnic, with a component of a left lung pneumonia, post bronchoscopy, appendectomy take it was suctioning and bronchioloalveolar lavage and the cultures still pending and the patient is on broad-spectrum antibiotics. There is considerable improvement in the chest x- ray findings on today's evaluation. The patient's blood gas show a component of chronic compensated hypercapnic respiratory failure. Oxygenation is improved. We'll give the patient has sedation holiday and consider weaning and possible exhibition today. 3 acute hypotension currently on pressors for hemodynamic support. The patient is on 3 mics of levo fed. The patient has an ejection fraction of 30-35% 4 CHF with an ejection fraction of 30-35% and moderate degree of pulmonary hypertension. The patient has obvious systolic dysfunction 5 chronic kidney failure with stage III kidney disease and an acute kidney injury on top of chronic renal failure, likely secondary to hypotension, cardiorenal factors versus sepsis. The patient's urine output is improved. The Lasix was discontinued and the creatinine today is at 2.9. 6 stage III chronic decubitus ulceration without evidence of an acute cellulitis 7 morbid obesity with a BMI 41.0 8 chronic atrial fibrillation and the patient is on IV heparin drip for now, rate controlled and the patient is currently on IV heparin 9 coronary artery disease 10 recent hospitalization for diarrhea/C. diff colitis and the stool analysis was negative and the patient completed the course of deficit on outpatient basis 11 hypertension 12 degenerative arthritis and sciatica and chronic shoulder and back pain and knee pain and the patient has been wheelchair bound 13 COPD 14 enteral feeding for nutritional support Plan The patient will be kept on the same antibiotic coverage. Discontinue the Lasix. Monitor renal function. Wean off pressors as tolerated. Stop sedation. Check weaning parameters. Assessment redness to wean. In the weaning parameters are appropriate, and considering the patient for a spontaneous breathing trial and possible extubation today. We'll monitor the patient further recommendations are to follow based on her progress. She'll feeds are currently on hold. There is a critically care evaluation that was done and 35 minutes. Time with Patient: Greater than 30
--- NOTE | 2018-05-15 17:14 | P.PN ---
Subjective Progress Note Date: 05/15/18 Principal diagnosis: respiratory distress Patient is a 67-year-old female multiple medical problems including CKD stage III, type 2 diabetes mellitus, diastolic heart failure, COPD with chronic CO2 retention chronic O2 dependence on 3L and nocturnal BiPAP, chronic atrial fibrillation on Eliquis was brought into emergency department due to respiratory distress. He was intubated in the emergency department. She was initially found have an elevated BNP and slightly elevated troponin. She was started on Solu-Medrol and Lasix in the ER and then developed A. fib with RVR. When this happen her respiratory status worsened and she was subsequently intubated. She was started on a Cardizem and Lasix drip. Follow-up chest x- ray after intubation showed worsening pulmonary edema and small bilateral pleural effusions. She was seen by pulmonary critical care on the morning of 05/11 and had a central line and a left brachial Artline placed. Infectious disease was consulted as patient had been placed on aztreonam and vancomycin secondary to ALLERGIES. She developed acute hypotension and required being placed on IV vasopressors. Repeat echocardiogram was performed which showed an ejection fraction of 30-35% which was worse from prior. Infectious disease found her to have multiple decubitus ulcers as well as mild cellulitis of the left leg. She had been placed on IV amio for arrhythmia and this was transitioned to oral amio on 05/14. They recommended continuing Azactam and vancomycin. On 05/14 her chest x-ray showed worsening volume loss in the left lower lobe. She subsequently underwent bronchoscopy. Pulmonary was concerned for worsening pneumonia that could be healthcare associated and added cefepime in addition to the Azactam and vancomycin. She has been seen by nephrology as her creatinine has been increasing with use of the Lasix drip. Nephrology discontinued Lasix. In the morning of 05/15 she was noted to have worsening leukocytosis, progressive anemia, and hyponatremia. Her creatinine continued to increase to 2.9. She maintained good urine output. Case discussed with nursing. Sedation is currently held and she is following commands currently. Objective - Vital Signs Vital signs: Vital Signs Temp 98.8 F 05/15/18 04:00 Pulse 112 H 05/15/18 07:38 Resp 18 05/15/18 07:00 BP 88/53 05/14/18 22:00 Pulse Ox 100 05/15/18 07:00 Intake & Output 05/14/18 05/15/18 05/15/18 18:59 06:59 18:59 Intake Total 2186.694 1219.065 148 Output Total 1200 1950 125 Balance 986.694 -730.935 23 Weight 116.2 kg 114.6 kg Intake: IV 475 500 120 Aztreonam 1 gm In Sodium 100 50 Chloride 0.9% 50 ml @ 100 mls/hr IVPB Q8HR [facility] Rx# :[id number] Cefepime 1 gm In Sodium 100 Chloride 0.9% 50 ml @ 100 mls/hr IVPB Q12HR [facility] Rx #:[id number] Furosemide 250 mg In 5 Sodium Chloride 0.9% 225 ml @ 5 MG/HR 5 mls/hr IVP .Q24H [facility] Rx#:[id number] Magnesium Sulfate-D5w Pmx 100 1 gm In Dextrose/Water 1 100ml.bag @ 100 mls/hr IVPB ONCE ONE Rx#: [id number] Sodium Chloride 0.9% 1, 220 200 20 000 ml @ 20 mls/hr IV . Q24H [facility]ENDING [facility] TO [facility] Rx#:[id number] Vancomycin 1,500 mg In 250 Sodium Chloride 0.9% 250 ml @ 125 mls/hr IVPB ONCE ONE Rx#:[id number] Intake, IV Titration 941.694 293.065 Amount Aztreonam 1 gm In Sodium 100 Chloride 0.9% 50 ml @ 100 mls/hr IVPB Q8HR [facility]ENDING [facility] TO [facility] Rx# :[id number] Heparin Sod,Pork in 0.45% 500 NaCl 25,000 unit In 0.45 % NaCl 1 500ml.bag @ 9.8 UNITS/KG/HR 21.91 mls/hr IV .[id number] [facility]END[facility] Rx#: [id number] Norepinephrine 16 mg In 76.421 48.457 Dextrose 5% in Water 250 ml @ Titrate IV .Q0M [facility] Rx#:[id number] Propofol 1,000 mg In 265.273 244.608 Empty Bag 1 bag @ Titrate IV .Q0M PENDING [facility]ALE TO [facility] Rx#: [id number] Tube Feeding 420 336 28 Other 350 90 Output: Urine 1200 1950 125 Other: Voiding Method Indwelling Catheter Indwelling Catheter ABP, PAP, CO, CI - Last Documented Arterial Blood Pressure 94/60 - Exam General: Appearing, moderate distress, morbidly obese, appears at stated age Derm: warm, dry, dressing in place over left lower extremity wound Head: atraumatic, normocephalic, symmetric Eyes: EOMI, no lid lag, anicteric sclera Mouth: no lip lesion, mucus membranes moist Cardiovascular: S1S2 reg, no murmur, positive posterior tibial pulse bilateral, Lungs: Sounds bilaterally with diminished breath sounds at the bases, no rhonchi, no rales , no accessory muscle use, on vent Abdominal: soft, nontender to palpation, no guarding, organs unable to be palpated Ext: no gross muscle atrophy, 2+ pitting edema, no contractures Neuro: CN II-XI grossly intact, 4 extremities independently Psych: On vent but following commands appropriately - Labs CBC & Chem 7: 05/15/18 04:40 05/15/18 04:40 Labs: Abnormal Lab Results - Last 24 Hours (Table) 05/14/18 05/14/18 05/15/18 Range/Units 12:56 18:09 00:00 WBC (3.8-10.6) k/uL RBC (3.80-5.40) m/uL Hgb (11.4-16.0) gm/dL Hct (34.0-46.0) % MCHC (31.0-37.0) g/dL RDW (11.5-15.5) % Neutrophils # (1.3-7.7) k/uL Monocytes # (0-1.0) k/uL APTT (22.0-30.0) sec ABG pCO2 (35-45) mmHg ABG HCO3 (21-25) mmol/L ABG Total CO2 (19-24) mmol/L ABG O2 Saturation (94-97) % Sodium (137-145) mmol/L Chloride (98-107) mmol/L Carbon Dioxide (22-30) mmol/L BUN (7-17) mg/dL Creatinine (0.52-1.04) mg/dL Glucose (74-99) mg/dL POC Glucose (mg/dL) 122 H 121 H 111 H (75-99) mg/dL Calcium (8.4-10.2) mg/dL Phosphorus (2.5-4.5) mg/dL 05/15/18 05/15/18 05/15/18 Range/Units 04:26 04:40 04:40 WBC 17.1 H (3.8-10.6) k/uL RBC 2.99 L (3.80-5.40) m/uL Hgb 7.7 L (11.4-16.0) gm/dL Hct 25.7 L (34.0-46.0) % MCHC 30.0 L (31.0-37.0) g/dL RDW 18.6 H (11.5-15.5) % Neutrophils # 14.4 H (1.3-7.7) k/uL Monocytes # 1.1 H (0-1.0) k/uL APTT (22.0-30.0) sec ABG pCO2 60 H (35-45) mmHg ABG HCO3 36 H (21-25) mmol/L ABG Total CO2 38 H (19-24) mmol/L ABG O2 Saturation 98.4 H (94-97) % Sodium 130 L (137-145) mmol/L Chloride 89 L (98-107) mmol/L Carbon Dioxide 36 H (22-30) mmol/L BUN 55 H (7-17) mg/dL Creatinine 2.90 H (0.52-1.04) mg/dL Glucose 107 H (74-99) mg/dL POC Glucose (mg/dL) (75-99) mg/dL Calcium 7.8 L (8.4-10.2) mg/dL Phosphorus 6.1 H (2.5-4.5) mg/dL 05/15/18 05/15/18 Range/Units 04:40 05:23 WBC (3.8-10.6) k/uL RBC (3.80-5.40) m/uL Hgb (11.4-16.0) gm/dL Hct (34.0-46.0) % MCHC (31.0-37.0) g/dL RDW (11.5-15.5) % Neutrophils # (1.3-7.7) k/uL Monocytes # (0-1.0) k/uL APTT 49.6 H (22.0-30.0) sec ABG pCO2 (35-45) mmHg ABG HCO3 (21-25) mmol/L ABG Total CO2 (19-24) mmol/L ABG O2 Saturation (94-97) % Sodium (137-145) mmol/L Chloride (98-107) mmol/L Carbon Dioxide (22-30) mmol/L BUN (7-17) mg/dL Creatinine (0.52-1.04) mg/dL Glucose (74-99) mg/dL POC Glucose (mg/dL) 122 H (75-99) mg/dL Calcium (8.4-10.2) mg/dL Phosphorus (2.5-4.5) mg/dL Microbiology - Last 24 Hours (Table) 05/14/18 10:05 Gram Stain - Preliminary Bronchial Washings - Left Bronchial Washings Culture - Preliminary 05/14/18 10:05 Acid Fast Bacilli Smear - Final Bronchial Washings - Left Acid Fast Bacilli Culture - Preliminary 05/11/18 15:00 Blood Culture - Preliminary Blood No Growth after 72 hours 05/14/18 10:05 Fungal Culture - Preliminary Bronchial Washings - Left Assessment and Plan Assessment: Pneumonia, likely healthcare -On Azactam, cefepime, and vancomycin discontinued after random vancomycin level of 20.5 noted - ID recs -Bronchodilators -Pulmonary hygiene -Titrate levo as able Hypotension most likely secondary to septic shock -Multiple etiologies most likely septic in origin -Continue with levo and wean as able -cortisol in normal range. Acute systolic CHF exacerbation with ejection fraction 30-35% -Lasix drip currently on hold -Ideally will need to be on an ALEJA inhibitor but cannot tolerate secondary to renal failure and hypotension -Ideally beta carola but still hypotensive and eating levo BASIA on CKD stage III with hyponatremia - Appears + fluid balance despite lasix gtt - off lasix gtt and scheduled lasix - nephrology following - renal dose medications - avoid additional nephrotoxic agents P. A. fib with RVR -On oral amiodarone - on heparin gtt Anemia, worsening - monitor for signs of bleeding - check FE studies Acute on chronic hypoxic hypercapnic respiratory failure due to obesity hypoventilation syndrome and pneumonia - vent management per critical care Acute on chronic debility Morbid obesity BMI 42 - structured outpatient weight loss Stage III decubitus ulcers with possible mild cellulitis -ID recs - off load - barrier cream COPD without exacerbation - pulm following r - bronchdilators Resolved: A fib with RVR Subacute diarrhea DVT prophylaxis: heparin gtt Discussed with: nursing, Dr. Laws Anticipated discharge: 3-[address]: Likely will need SNF A total of 35 minutes was spent on the care of this complex patient more than 50 % of the time was spent in counseling and care coordination.
[2018-05-15 17:16] LABS: Glucose,Whole Blood 112 mg/dL (75-99)
[2018-05-15] MEDS: SODIUM CHLORIDE 0.9% 1,000 ML IV SCH (17:22)
[2018-05-15] MEDS: HEPARIN SOD,PORK IN 0.45% NACL 25,000 UNIT in 0.45% NACL 1 500ML.BAG IV SCH (18:15)
--- NOTE | 2018-05-15 22:16 | PN ---
PROGRESS NOTE MMANA / OSITON: [id number] /
--- NOTE | 2018-05-15 22:59 | P.PN ---
Subjective Progress Note Date: 05/15/18 This is a 67-year-old morbidly obese female that came into the emergency center yesterday with shortness of breath and lethargy. Patient apparently has been bedbound for the past 3 weeks due to shortness of breath. Patient has not been eating very much and also had diarrhea. She was treated outpatient with deficit and completed the course and was then placed on antidiarrheal agent. She was admitted 2 months ago at [facility] for heart failure. She required intubation in the emergency center. She was also found to have atrial fibrillation with RVR is currently on amiodarone drip. Cardiology is following. Nephrology is also following for acute kidney injury with BUN 44 and creatinine 2.59. Patient presented with leukocytosis but afebrile. Troponins were mildly elevated at 0.046, 0.049, 0.047. Albumin 2.6, TSH 1.550. C. difficile toxin was negative. Urinalysis was cloudy, leukoesterase large, WBC 33 and bacteria rare. Blood issuing no growth at 24 hours and urine culture is in progress. Patient is currently on norepinephrine, Lasix drip, amiodarone drip, heparin drip and sedation. He guarding antibiotics patient is on Azactam and vancomycin. Initial x-ray shows mild cardiomegaly and interstitial prominence. Correlate for heart failure and mild pulmonary vascular congestion. Small to moderate left and trace left pleural effusions with adjacent atelectasis and/or consolidation. Repeat chest x-ray this morning reveals improved aeration of the right upper lung. Haziness of the right hemidiaphragm likely represents a new trace right pleural effusion. Persistent retrocardiac obesity is favored to represent a small pleural effusion and left basilar atelectasis. Overall stable lines and tubes. Echocardiogram reveals EF of 3035%, moderate concentric left ventricular hypertrophy, elderly severely dilated, mild mitral regurgitation, moderate tricuspid regurgitation, moderate pulmonary hypertension. Regarding wounds, patient has stage II decubitus ulcer on the right buttocks, left hip and the shear-type injury to the right hip area there is mild cellulitis to the left pretibial area. Patient's bowel movements are currently soft. 05/14/2018 patient remains intubated sedated and mechanically ventilated but is now with a marked reduction in the amount of vasopressor therapy. Her sedation holiday earlier today was successful. However she had significant secretions on bronchoscopy was performed in large amounts of purulent secretions were suctioned. She is comfortable at this time. 05/15/2018. The patient is now extubated. We'll likely be on BiPAP overnight. Vasopressor therapy has been weaned and has almost completely been discontinued. Objective - Vital Signs Vital signs: Vital Signs Temp 97.6 F 05/15/18 20:00 Pulse 112 H 05/15/18 22:00 Resp 15 05/15/18 22:00 BP 88/53 05/14/18 22:00 Pulse Ox 98 05/15/18 22:00 Intake & Output 05/15/18 05/15/18 05/16/18 06:59 18:59 06:59 Intake Total 8482.672 6565.210 100 Output Total 1950 1270 490 Balance -730.935 -53.790 -390 Weight 114.6 kg Intake: IV 500 490 100 Aztreonam 1 gm In Sodium 50 100 Chloride 0.9% 50 ml @ 100 mls/hr IVPB Q8HR [facility] Rx# :[id number] Cefepime 1 gm In Sodium 50 Chloride 0.9% 50 ml @ 100 mls/hr IVPB Q12HR [facility] Rx #:[id number] Magnesium Sulfate-D5w Pmx 100 1 gm In Dextrose/Water 1 100ml.bag @ 100 mls/hr IVPB ONCE ONE Rx#: [id number] Sodium Chloride 0.9% 1, 200 240 100 000 ml @ 20 mls/hr IV . Q24H [facility] Rx#:[id number] Vancomycin 1,500 mg In 250 Sodium Chloride 0.9% 250 ml @ 125 mls/hr IVPB ONCE ONE Rx#:[id number] Intake, IV Titration 293.065 640.210 Amount Heparin Sod,Pork in 0.45% 500 NaCl 25,000 unit In 0.45 % NaCl 1 500ml.bag @ 9.8 UNITS/KG/HR 21.91 mls/hr IV .[id number] [facility] Rx#: [id number] Norepinephrine 16 mg In 48.457 39.281 Dextrose 5% in Water 250 ml @ Titrate IV .Q0M [facility] Rx#:[id number] Propofol 1,000 mg In 244.608 100.929 Empty Bag 1 bag @ Titrate IV .Q0M [facility] Rx#: [id number] Tube Feeding 336 56 Other 90 30 Output: Urine 1950 1270 490 Other: Voiding Method Indwelling Catheter Indwelling Catheter Indwelling Catheter ABP, PAP, CO, CI - Last Documented Arterial Blood Pressure 110/65 - Exam Gen: This is a morbidly obese 67-year-old female. She is now extubated and able to follow simple commands She appears to be comfortable and in no acute distress. HEENT: Head is atraumatic, normocephalic. Pupils equal, round. Sclerae is anicteric. Conjunctiva slightly pale. Mucous members of the mouth are dry. Oral gastric tube and ET tube in place. NECK: Supple. No JVD. No lymphadenopathy. No thyromegaly. LUNGS: Diminished bilaterally. No intercostal retractions. HEART: Irregularly irregular rate and rhythm. No murmur. ABDOMEN: Currently obese. Soft. Bowel sounds are present. No masses. No tenderness. No significant redness under her abdominal fold or breast. InterDry and nystatin powder in place. EXTREMITIES: Jared bilateral pedal edema. Waffle-type boots in place. There is erythema to the left pretibial area. NEUROLOGICAL: She is extubated and no longer sedated. Seems to be comfortable. - Labs CBC & Chem 7: 05/15/18 04:40 05/15/18 04:40 Labs: Abnormal Lab Results - Last 24 Hours (Table) 05/15/18 05/15/18 05/15/18 Range/Units 00:00 04:26 04:40 WBC 17.1 H (3.8-10.6) k/uL RBC 2.99 L (3.80-5.40) m/uL Hgb 7.7 L (11.4-16.0) gm/dL Hct 25.7 L (34.0-46.0) % MCHC 30.0 L (31.0-37.0) g/dL RDW 18.6 H (11.5-15.5) % Neutrophils # 14.4 H (1.3-7.7) k/uL Monocytes # 1.1 H (0-1.0) k/uL APTT (22.0-30.0) sec ABG pCO2 60 H (35-45) mmHg ABG HCO3 36 H (21-25) mmol/L ABG Total CO2 38 H (19-24) mmol/L ABG O2 Saturation 98.4 H (94-97) % Sodium (137-145) mmol/L Chloride (98-107) mmol/L Carbon Dioxide (22-30) mmol/L BUN (7-17) mg/dL Creatinine (0.52-1.04) mg/dL Glucose (74-99) mg/dL POC Glucose (mg/dL) 111 H (75-99) mg/dL Calcium (8.4-10.2) mg/dL Phosphorus (2.5-4.5) mg/dL 05/15/18 05/15/18 05/15/18 Range/Units 04:40 04:40 05:23 WBC (3.8-10.6) k/uL RBC (3.80-5.40) m/uL Hgb (11.4-16.0) gm/dL Hct (34.0-46.0) % MCHC (31.0-37.0) g/dL RDW (11.5-15.5) % Neutrophils # (1.3-7.7) k/uL Monocytes # (0-1.0) k/uL APTT 49.6 H (22.0-30.0) sec ABG pCO2 (35-45) mmHg ABG HCO3 (21-25) mmol/L ABG Total CO2 (19-24) mmol/L ABG O2 Saturation (94-97) % Sodium 130 L (137-145) mmol/L Chloride 89 L (98-107) mmol/L Carbon Dioxide 36 H (22-30) mmol/L BUN 55 H (7-17) mg/dL Creatinine 2.90 H (0.52-1.04) mg/dL Glucose 107 H (74-99) mg/dL POC Glucose (mg/dL) 122 H (75-99) mg/dL Calcium 7.8 L (8.4-10.2) mg/dL Phosphorus 6.1 H (2.5-4.5) mg/dL 18 05/15/18 Range/Units 10:48 17:14 WBC (3.8-10.6) k/uL RBC (3.80-5.40) m/uL Hgb (11.4-16.0) gm/dL Hct (34.0-46.0) % MCHC (31.0-37.0) g/dL RDW (11.5-15.5) % Neutrophils # (1.3-7.7) k/uL Monocytes # (0-1.0) k/uL APTT (22.0-30.0) sec ABG pCO2 65 H (35-45) mmHg ABG HCO3 36 H (21-25) mmol/L ABG Total CO2 (19-24) mmol/L ABG O2 Saturation 97.7 H (94-97) % Sodium (137-145) mmol/L Chloride (98-107) mmol/L Carbon Dioxide (22-30) mmol/L BUN (7-17) mg/dL Creatinine (0.52-1.04) mg/dL Glucose (74-99) mg/dL POC Glucose (mg/dL) 112 H (75-99) mg/dL Calcium (8.4-10.2) mg/dL Phosphorus (2.5-4.5) mg/dL Microbiology - Last 24 Hours (Table) 05/11/18 15:00 Blood Culture - Preliminary Blood No Growth after 96 hours 05/14/18 10:05 Gram Stain - Preliminary Bronchial Washings - Left Bronchial Washings Culture - Preliminary Presumptive Staph aureus 05/14/18 10:05 Acid Fast Bacilli Smear - Final Bronchial Washings - Left Acid Fast Bacilli Culture - Preliminary Laboratory Results WBC 17.1 k/uL (3.8-10.6) H 05/15/18 04:40 RBC 2.99 m/uL (3.80-5.40) L 05/15/18 04:40 Hgb 7.7 gm/dL (11.4-16.0) L 05/15/18 04:40 Hct 25.7 % (34.0-46.0) L 05/15/18 04:40 MCV 85.8 fL (80.0-100.0) 05/15/18 04:40 MCH 25.7 pg (25.0-35.0) 05/15/18 04:40 MCHC 30.0 g/dL (31.0-37.0) L 05/15/18 04:40 RDW 18.6 % (11.5-15.5) H 05/15/18 04:40 Plt Count 331 k/uL (150-450) 05/15/18 04:40 Neutrophils % 84 % 05/15/18 04:40 Lymphocytes % 7 % 05/15/18 04:40 Monocytes % 6 % 05/15/18 04:40 Eosinophils % 0 % 05/15/18 04:40 Basophils % 1 % 05/15/18 04:40 Neutrophils # 14.4 k/uL (1.3-7.7) H 05/15/18 04:40 Lymphocytes # 1.2 k/uL (1.0-4.8) 05/15/18 04:40 Monocytes # 1.1 k/uL (0-1.0) H 05/15/18 04:40 Eosinophils # 0.1 k/uL (0-0.7) 05/15/18 04:40 Basophils # 0.1 k/uL (0-0.2) 05/15/18 04:40 Hypochromasia Marked 05/15/18 04:40 Poikilocytosis Slight 05/11/18 15:00 Anisocytosis Slight 05/15/18 04:40 PT 11.2 sec (9.0-12.0) 05/11/18 15:00 INR 1.2 (<1.2) H 05/11/18 15:00 APTT 49.6 sec (22.0-30.0) H 05/15/18 04:40 D-Dimer 0.57 mg/L FEU (<0.60) 05/11/18 15:00 Sample Site [place] 05/15/18 10:48 ABG pH 7.37 (7.35-7.45) 05/15/18 10:48 ABG pCO2 65 mmHg (35-45) H 05/15/18 10:48 ABG pO2 104 mmHg (83-108) 05/15/18 10:48 ABG HCO3 36 mmol/L (21-25) H 05/15/18 10:48 ABG Total CO2 38 mmol/L (19-24) H 05/15/18 04:26 ABG O2 Saturation 97.7 % (94-97) H 05/15/18 10:48 ABG Base Excess 10.2 mmol/L 05/15/18 10:48 Juancarlos Test Yes 05/15/18 10:48 FiO2 45 % 05/15/18 10:48 Sodium 130 mmol/L (137-145) L 05/15/18 04:40 Potassium 3.5 mmol/L (3.5-5.1) 05/15/18 04:40 Chloride 89 mmol/L (98-107) L 05/15/18 04:40 Carbon Dioxide 36 mmol/L (22-30) H 05/15/18 04:40 Anion Gap 5 mmol/L 05/15/18 04:40 BUN 55 mg/dL (7-17) H 05/15/18 04:40 Creatinine 2.90 mg/dL (0.52-1.04) H 05/15/18 04:40 Est GFR (CKD-EPI)AfAm 19 (>60 ml/min/1.73 sqM) 05/15/18 04:40 Est GFR (CKD-EPI)NonAf 16 (>60 ml/min/1.73 sqM) 05/15/18 04:40 Glucose 107 mg/dL (74-99) H 05/15/18 04:40 POC Glucose (mg/dL) 112 mg/dL (75-99) H 05/15/18 17:14 POC Glu Personal Service Representative ID Hermes Jean Baptiste 05/15/18 17:14 Plasma Lactic Acid Terence 1.9 mmol/L (0.7-2.0) 05/11/18 15:00 Calcium 7.8 mg/dL (8.4-10.2) L 05/15/18 04:40 Phosphorus 6.1 mg/dL (2.5-4.5) H 05/15/18 04:40 Magnesium 1.9 mg/dL (1.6-2.3) 05/15/18 04:40 Total Bilirubin 0.4 mg/dL (0.2-1.3) 05/11/18 15:00 AST 16 U/L (14-36) 05/11/18 15:00 ALT 30 U/L (9-52) 05/11/18 15:00 Alkaline Phosphatase 128 U/L (38-126) H 05/11/18 15:00 Total Creatine Kinase 40 U/L (30-135) 05/11/18 15:00 CK-MB (CK-2) 1.2 ng/mL (0.0-2.4) 05/11/18 15:00 CK-MB (CK-2) Rel Index 3.0 05/11/18 15:00 Troponin I 0.047 ng/mL (0.000-0.034) H* 05/12/18 03:06 NT-Pro-B Natriuret Pep 5490 pg/mL 05/11/18 15:00 Total Protein 4.9 g/dL (6.3-8.2) L 05/11/18 15:00 Albumin 2.6 g/dL (3.5-5.0) L 05/11/18 15:00 TSH 1.550 mIU/L (0.465-4.680) 05/11/18 22:44 Cortisol 11 ug/dL 05/15/18 04:40 Urine Color Yellow 05/11/18 23:45 Urine Appearance Cloudy (Clear) H 05/11/18 23:45 Urine pH 5.0 (5.0-8.0) 05/11/18 23:45 Ur Specific [place] 1.012 (1.001-1.035) 05/11/18 23:45 Urine Protein Negative (Negative) 05/11/18 23:45 Urine Glucose (UA) Negative (Negative) 05/11/18 23:45 Urine Ketones Negative (Negative) 05/11/18 23:45 Urine Blood Negative (Negative) 05/11/18 23:45 Urine Nitrite Negative (Negative) 05/11/18 23:45 Urine Bilirubin Negative (Negative) 05/11/18 23:45 Urine Urobilinogen <2.0 mg/dL (<2.0) 05/11/18 23:45 Ur Leukocyte Esterase Large (Negative) H 05/11/18 23:45 Urine RBC 2 /hpf (0-5) 05/11/18 23:45 Urine WBC 33 /hpf (0-5) H 05/11/18 23:45 Ur Squamous Epith Cells <1 /hpf (0-4) 05/11/18 23:45 Amorphous Sediment Rare /hpf (None) H 05/11/18 23:45 Urine Bacteria Rare /hpf (None) H 05/11/18 23:45 Hyaline Casts 49 /lpf (0-2) H 05/11/18 23:45 Urine Mucus Rare /hpf (None) H 05/11/18 23:45 Random Vancomycin 20.5 ug/mL 05/14/18 04:50 C. difficile (EIA) Intrp Negative (Negative) 05/12/18 08:53 Virus Source See Below 05/14/18 10:05 Viral Test See Below 05/14/18 10:05 Virus Analysis Interp See Below 05/14/18 10:05 Microbiology 05/11/18 15:00 Blood Blood Culture - Preliminary No Growth after 96 hours 05/14/18 10:05 Bronchial Washings - Left Gram Stain - Preliminary 05/14/18 10:05 Bronchial Washings - Left Bronchial Washings Culture - Preliminary Presumptive Staph aureus 05/14/18 10:05 Bronchial Washings - Left Acid Fast Bacilli Smear - Final 05/14/18 10:05 Bronchial Washings - Left Acid Fast Bacilli Culture - Preliminary 05/14/18 10:05 Bronchial Washings - Left Fungal Culture - Preliminary 05/11/18 23:45 Urine,Catheterized Urine Culture - Final Assessment and Plan (1) Acute respiratory failure Current Visit: Yes Status: Acute Code(s): J96.00 - ACUTE RESPIRATORY FAILURE , UNSP W HYPOXIA OR HYPERCAPNIA SNOMED Code(s): 73253072 (2) COPD (chronic obstructive pulmonary disease) Current Visit: Yes Status: Acute Code(s): J44.9 - CHRONIC OBSTRUCTIVE PULMONARY DISEASE, UNSPECIFIED SNOMED Code(s): 16354777 (3) Pressure ulcer of buttock Narrative/Plan: 67-year-old presents to Hospital with respiratory failure she is now extubated and is showing improvement. The Mepilex dressing is applied to the coccyx wound. The patient's bronchoscopy reveals evidence of staph and antimicrobial therapy is being utilized with Azactam and vancomycin pending further data. She does seem to be improving but appears she will need to be on BiPAP overnight which is unusual for her at home. She does appear to have a poor prognosis. Current Visit: Yes Status: Acute Code(s): L89.309 - PRESSURE ULCER OF UNSPECIFIED BUTTOCK, UNSPECIFIED STAGE SNOMED Code(s): 344359775
[2018-05-15 23:13] LABS: Glucose,Whole Blood 75 mg/dL (75-99)
[2018-05-16] MEDS: IPRATROPIUM-ALBUTEROL 3 ML NEB INHALATION SCH ×7 (00:11→23:11)
[2018-05-16 03:56] LABS: Anisocytosis Slight; Basophils # (A) 0.1 k/uL (0-0.2); Basophils % (A) 0 %; Eosinophils # (A) 0.1 k/uL (0-0.7); Eosinophils % (A) 0 %; HCT 25.9 % (34.0-46.0); HGB 7.7 gm/dL (11.4-16.0); Hypochromasia Marked; Lymphocytes # (A) 0.9 k/uL (1.0-4.8); Lymphocytes % (A) 6 %; MCH 25.5 pg (25.0-35.0); MCHC 29.6 g/dL (31.0-37.0); MCV 86.2 fL (80.0-100.0); Mean Platelet Volume 8.1; Monocytes # (A) 0.9 k/uL (0-1.0); Monocytes % (A) 6 %; Neutrophils # (A) 13.3 k/uL (1.3-7.7); Neutrophils % (A) 87 %; Platelet Count 308 k/uL (150-450); RBC 3.01 m/uL (3.80-5.40); RDW 18.4 % (11.5-15.5); WBC 15.3 k/uL (3.8-10.6)
[2018-05-16 04:30] LABS: Calcium 8.3 mg/dL (8.4-10.2); Magnesium 2.1 mg/dL (1.6-2.3); Phosphorus 6.3 mg/dL (2.5-4.5); Potassium 3.9 mmol/L (3.5-5.1)
[2018-05-16 05:38] LABS: Glucose,Whole Blood 66 mg/dL (75-99)
[2018-05-16] MEDS ORDERED: DEXTROSE 50%-WATER 50 ML SYRINGE IVP ONE ×2 (05:39→16:43)
[2018-05-16] MEDS ORDERED: DEXTROSE 50%-WATER 50 ML SYRINGE IVP STA (05:41)
[2018-05-16 05:55] LABS: Glucose,Whole Blood 156 mg/dL (75-99)
[2018-05-16] MEDS: INSULIN ASPART 100 UNIT/ML 1 ML 10 ML VIAL SQ SCH ×4 (05:56→20:20)
--- NOTE | 2018-05-16 07:03 | XR ---
EXAMINATION TYPE: XR chest 1V portable DATE OF EXAM: 05/16/2018 HISTORY: Tube placement. REFERENCE: Previous study dated 05/15/2018. FINDINGS: The patient is ET tube and NG tube have been removed. A right subclavian catheter remains i n place. Its tip is at the cavoatrial junction. The heart is enlarged. There is left basilar airspace disease. There are small, bilateral effusions. There is diffuse interstitial change. IMPRESSION: 1. FINDINGS MOST CONSISTENT WITH MILD HEART FAILURE. 2. LEFT BASILAR AIRSPACE DISEASE MAY REPRESENT ATELECTASIS, CONFLUENT EDEMA OR PNEUMONIA. 3. SMALL, BILATERAL EFFUSIONS, GREATER ON THE LEFT THAN THE RIGHT.
[2018-05-16] MEDS: AZTREONAM 1 GM in SODIUM CHLORIDE 0.9% 50 ML IVPB SCH (08:23)
[2018-05-16] MEDS ORDERED: FUROSEMIDE 10 MG/ML 10 ML VIAL IV STA (08:30)
[2018-05-16] MEDS: AMIODARONE 200 MG TAB PO SCH ×3 (09:02→20:20)
[2018-05-16] MEDS: ASPIRIN 325 MG TAB PO SCH (09:02)
[2018-05-16] MEDS: PANTOPRAZOLE 40 MG/10 ML VIAL IV SCH (09:05)
[2018-05-16] MEDS: CEFEPIME 1 GM in SODIUM CHLORIDE 0.9% 50 ML IVPB SCH (09:11)
--- NOTE | 2018-05-16 09:21 | P.PN ---
Subjective Patient is seen in follow-up for acute kidney injury. Unclear as to what her baseline renal function is. Creatinine is down to 2.5 today. Patient presented with weakness and was noted to be due to fibrillation with RVR. Currently on oral amiodarone. She is off all vasopressors now. She is noted to have systolic CHF with ejection fraction of 30-35%. She received 80 mg of IV Lasix this morning due to vascular congestion. She was extubated on May 15. Currently on BiPAP. Vital signs are stable. Requiring 4 mics of Levophed. General: The patient appeared well nourished and normally developed. HEENT: Head exam is unremarkable. Neck is without jugular venous distension. LUNGS: Breath sounds decreased. HEART: Rate and Rhythm are regular. First and second heart sounds normal. No murmurs, rubs or gallops. ABDOMEN: Abdominal exam reveals normal bowel sounds. Non-tender and non- distended. No evidence of peritonitis. EXTREMITITES: No clubbing, cyanosis, or edema. Objective - Vital Signs Vital signs: Vital Signs Temp 97.4 F L 05/16/18 08:00 Pulse 109 H 05/16/18 08:00 Resp 16 05/16/18 08:00 BP 88/53 05/14/18 22:00 Pulse Ox 98 05/16/18 08:00 Intake & Output 05/15/18 05/16/18 05/16/18 18:59 06:59 18:59 Intake Total 1216.210 260 20 Output Total 1270 1100 80 Balance -53.790 -840 -60 Weight 113.1 kg Intake: IV 490 260 20 Aztreonam 1 gm In Sodium 100 Chloride 0.9% 50 ml @ 100 mls/hr IVPB Q8HR [facility] Rx# :[id number] Cefepime 1 gm In Sodium 50 Chloride 0.9% 50 ml @ 100 mls/hr IVPB Q12HR [facility] Rx #:[id number] Magnesium Sulfate-D5w Pmx 100 1 gm In Dextrose/Water 1 100ml.bag @ 100 mls/hr IVPB ONCE ONE Rx#: [id number] Sodium Chloride 0.9% 1, 240 260 20 000 ml @ 20 mls/hr IV . Q24H [facility] Rx#:[id number] Intake, IV Titration 640.210 Amount Heparin Sod,Pork in 0.45% 500 NaCl 25,000 unit In 0.45 % NaCl 1 500ml.bag @ 9.8 UNITS/KG/HR 21.91 mls/hr IV .[id number] [facility] Rx#: [id number] Norepinephrine 16 mg In 39.281 Dextrose 5% in Water 250 ml @ Titrate IV .Q0M [facility] Rx#:[id number] Propofol 1,000 mg In 100.929 Empty Bag 1 bag @ Titrate IV .Q0M [facility] Rx#: [id number] Tube Feeding 56 Other 30 Output: Urine 1270 1100 80 Other: Voiding Method Indwelling Catheter Indwelling Catheter ABP, PAP, CO, CI - Last Documented Arterial Blood Pressure 92/54 - Labs CBC & Chem 7: 05/16/18 03:45 05/16/18 03:45 Labs: Abnormal Lab Results - Last 24 Hours (Table) 05/14/18 05/15/18 05/15/18 Range/Units 04:50 10:48 17:14 WBC (3.8-10.6) k/uL RBC (3.80-5.40) m/uL Hgb (11.4-16.0) gm/dL Hct (34.0-46.0) % MCHC (31.0-37.0) g/dL RDW (11.5-15.5) % Neutrophils # (1.3-7.7) k/uL Lymphocytes # (1.0-4.8) k/uL APTT (22.0-30.0) sec ABG pCO2 65 H (35-45) mmHg ABG HCO3 36 H (21-25) mmol/L ABG O2 Saturation 97.7 H (94-97) % Sodium (137-145) mmol/L Chloride (98-107) mmol/L Carbon Dioxide (22-30) mmol/L BUN (7-17) mg/dL Creatinine (0.52-1.04) mg/dL Glucose (74-99) mg/dL POC Glucose (mg/dL) 112 H (75-99) mg/dL Calcium (8.4-10.2) mg/dL Phosphorus (2.5-4.5) mg/dL Iron 20 L (50-170) ug/dL TIBC 207 L (228-460) ug/dL Iron Saturation 9.66 L (12.00-45.00) 05/16/18 05/16/18 05/16/18 Range/Units 03:45 03:45 03:45 WBC 15.3 H (3.8-10.6) k/uL RBC 3.01 L (3.80-5.40) m/uL Hgb 7.7 L (11.4-16.0) gm/dL Hct 25.9 L (34.0-46.0) % MCHC 29.6 L (31.0-37.0) g/dL RDW 18.4 H (11.5-15.5) % Neutrophils # 13.3 H (1.3-7.7) k/uL Lymphocytes # 0.9 L (1.0-4.8) k/uL APTT 47.0 H (22.0-30.0) sec ABG pCO2 (35-45) mmHg ABG HCO3 (21-25) mmol/L ABG O2 Saturation (94-97) % Sodium 133 L (137-145) mmol/L Chloride 91 L (98-107) mmol/L Carbon Dioxide 34 H (22-30) mmol/L BUN 55 H (7-17) mg/dL Creatinine 2.50 H (0.52-1.04) mg/dL Glucose 69 L (74-99) mg/dL POC Glucose (mg/dL) (75-99) mg/dL Calcium 8.3 L (8.4-10.2) mg/dL Phosphorus 6.3 H (2.5-4.5) mg/dL Iron (50-170) ug/dL TIBC (228-460) ug/dL Iron Saturation (12.00-45.00) 05/16/18 05/16/18 Range/Units 05:37 05:53 WBC (3.8-10.6) k/uL RBC (3.80-5.40) m/uL Hgb (11.4-16.0) gm/dL Hct (34.0-46.0) % MCHC (31.0-37.0) g/dL RDW (11.5-15.5) % Neutrophils # (1.3-7.7) k/uL Lymphocytes # (1.0-4.8) k/uL APTT (22.0-30.0) sec ABG pCO2 (35-45) mmHg ABG HCO3 (21-25) mmol/L ABG O2 Saturation (94-97) % Sodium (137-145) mmol/L Chloride (98-107) mmol/L Carbon Dioxide (22-30) mmol/L BUN (7-17) mg/dL Creatinine (0.52-1.04) mg/dL Glucose (74-99) mg/dL POC Glucose (mg/dL) 66 L 156 H (75-99) mg/dL Calcium (8.4-10.2) mg/dL Phosphorus (2.5-4.5) mg/dL Iron (50-170) ug/dL TIBC (228-460) ug/dL Iron Saturation (12.00-45.00) Microbiology - Last 24 Hours (Table) 05/14/18 10:05 Gram Stain - Preliminary Bronchial Washings - Left Bronchial Washings Culture - Preliminary Presumptive Staph aureus 05/11/18 15:00 Blood Culture - Preliminary Blood No Growth after 96 hours Assessment and Plan Plan: Assessment: 1. Nonoliguric acute kidney injury secondary to ATN secondary to hemodynamic instability along with component of cardiorenal syndrome. Unclear as to what her baseline renal function is. Creatinine down to 2.5 today. No proteinuria noted on urinalysis. 2. Atrial fibrillation with RVR. Now maintain on oral amiodarone. 3. Systolic CHF with ejection fraction of 30-35%. 4. Hypotension, off vasopressors. 5. Volume overload. Improving. 6. Hypokalemia secondary to diuresis. Improved post replacement. 7. Hyponatremia secondary to acute kidney injury. Improved. Plan: Status post Lasix 80 mg IV this morning. Avoid nephrotoxic agents and hypotensive episodes. Continue to monitor renal function and urine output. Vancomycin level 22 from this morning. Dose to be adjusted by pharmacy.
[2018-05-16 10:01] LABS: ABG Base Excess 8.8 mmol/L; ABG HCO3 35 mmol/L (21-25); ABG PCO2 69 mmHg (35-45); ABG PH 7.33 (7.35-7.45); ABG PO2 74 mmHg (83-108)
--- NOTE | 2018-05-16 12:02 | PN ---
PROGRESS NOTE DATE OF SERVICE: 05/16/2018. HISTORY: This patient was admitted with acute respiratory distress and is being treated for pneumonia as well as mild heart failure. Patient is doing better. She was extubated yesterday. She still is congested. Chest x-ray done today shows evidence of a mild congestive cardiac failure. Patient's blood pressure is 104/63 mmHg, heart rate is 95 per minute. The patient's urine output remains fairly good. She had 610 mL of urine output during the night. The patient's creatinine is 2.50, which is improved to 2.9. Patient currently is not getting any on diuretics. We will follow chest x-ray. The patient may need some baseline dose of diuretics if the chest x-ray shows persistent changes of heart failure. MMODL / IJN: [id number] /
[2018-05-16 12:43] LABS: Glucose,Whole Blood 79 mg/dL (75-99)
--- NOTE | 2018-05-16 13:23 | P.PN ---
Subjective Progress Note Date: 05/16/18 This is a 67-year-old female with history of multiple medical problems including chronic hypercapnic respiratory failure, obstructive sleep apnea syndrome, COPD, patient is on home oxygen at 3 L, she is also on BiPAP and seems to be nocturnally BiPAP dependent. Patient is also known to have history of chronic atrial fibrillation, chronic decubitus ulcers, superficial leg ulcers , patient has a visiting nurse taking care of her ulcers and chronic wounds. She was noted by the visiting nurse to be dyspneic, for at least 24 hours prior to presentation. Patient has been using oxygen at home, BiPAP, and she is also on updrafts in the form of DuoNeb. Considering the patient was not noticing significant improvement, patient was advised to come to the ER. Upon arrival to the ER, patient was noted to be quite dyspneic, and did not improve much with BiPAP. Hence she was intubated by Dr. Steve Roberts, placed on mechanical ventilation, admitted to the ICU and this consult was initiated. Presently the patient is on the following ventilator settings tidal volume of 400 assist control rate of 18 FiO2 of 50% and PEEP of 5. She is in atrial fibrillation with RVR, placed on amiodarone to replace Cardizem as per cardiology. Her echocardiogram showed severe ventricular dysfunction ejection fraction of 30-35% . Hence the patient was placed on Lasix drip. Chest x-ray did show evidence of pulmonary edema. Echocardiogram also showed evidence of moderate pulmonary hypertension with a right-sided pressures in the range of 50. Patient was recently diagnosed as having C. difficile colitis, and has been on deficid on outpatient basis. ABG this morning showed a pO2 of 109 pCO2 of 60 pH of 7.43, hence I cut down the FiO2 to 45%. And I kept the same ventilator settings are unchanged. Renal functioning was noted to be abnormal creatinine is 1.90 BUN is 39 however the patient is known to have history of chronic kidney disease stage III. ProBNP level was noted to be elevated over 5500. Troponin was borderline elevated. Urine showed pyuria and bacteriuria suggestive of urinary tract infection. Patient was empirically placed on aztreonam and vancomycin. Infectious disease consultation was also initiated. On today's evaluation of 05/13/2018 I'm seeing this patient for a follow-up. The patient is sedated with Diprivan at 30 g per KG pigmented. The patient is calm and comfortable. She remains on a mechanical ventilator on assist control mode at the rate of 18, tidal volume of 400, FiO2 of 45% and a PEEP of 5. The pH is at 7.39 with a pCO2 of 60 and pO2 of 124. The peak airway pressures around 33-34 and the static airway pressures around 17. Chest x-ray shows shows improved aeration of the right upper lobe. There is haziness along the right hemidiaphragm possibly related to some trace bilateral pleural effusion and atelectatic changes in lung bases. ET tube is in a good location. There is also a right IJ triple-lumen catheter in place. Hemodynamically, the patient is still requiring pressors. This morning she was and 6 mics of norepinephrine infusion for blood pressure control. At the same time the patient was in atrial fibrillation with slight tachycardia and the heart rate was in the low 100s range. The patient was started on amiodarone and the patient was being loaded and she was on 1 mg/m of an amiodarone drip. At the same time, the patient is on Lasix drip at the dose of 10 mg an hour. CVP was checked and was at 16. The patient was afebrile. The patient had an echocardiogram that showed an ejection fraction of 30-35% consistent with moderate severe LV dysfunction. The symptom the patient moderate concentric left ventricular hypertrophy, as he was severely dilated, there is moderate degree of pulmonary hypertension with a PA pressure of around 49. The urine output was in the order of 20 mL an hour. Her net fluid balance is +3.6 L yesterday. The renal function remains impaired and the creatinine is at 2.59 consistent with acute on top of chronic renal failure. She is currently receiving tube feeds which is also at goal. Stool for C. diff was negative. The patient is on empiric antibiotic coverage with IV aztreonam and vancomycin. The choice of aztreonam was made due to concern of an underlying urine checked infection knowing that the patient's UA was abnormal at the time of admission. There is questionable cirrhotic changes in the left lower extremity and the patient is covered with vancomycin. No open wounds or sores are than stage II ulcer in the back and buttock area. On today's evaluation of 05/14/2018, the patient is being seen for a follow-up. The patient remains intubated on a mechanical ventilator. This morning, she is sedated and she is calm and comfortable. She is on Diprivan which is running at 30 g per KG pigmented. She will receive her daily sedation holiday today and her underlying mentation will be assessed. She remains on a mechanical ventilator. She is an assist-control mode of ventilation at the rate of 18, tidal volume of 400, FiO2 of 45% and a PEEP of 5. She is intubated by #7.582. On today's chest x-ray, there is cardiomegaly and there is further volume loss and consolidation of the left lower lobe and I do suspect a partial atelectasis of the left lung probably related to endobronchial secretions as the patient is having thick purulent rest or secretions upon suctioning. Overall, she is afebrile. She is covered with a combination of as active and vancomycin. There was concern for a urine infection yesterday and the blood cultures and urine cultures still pending and they're negative for now. However , the patient is still pressor dependent and she is on Mics of norepinephrine infusion for blood pressure control. Her mean arterial pressures above 65. Her urine output improved overnight and she is producing more than 100 mL an hour on an hourly basis. Her creatinine is up to 2.8. Nephrology valve that the patient stop the Lasix drip and she'll be receiving Lasix pushes 40 mg every 12 hours. Also, she is still in nature fibrillation rhythm. Rate is controlled. She is on amiodarone 1 mg/m which I intend to stop today as the patient's rate is under good control the patient is also on IV heparin for anticoagulation regards to her atrial fibrillation. She will feeds are in the form of vital high protein and the patient is at goal at 28 mL an hour. No diarrhea. No abdominal distention. No other significant events overnight. On 05/15/2018, the patient is being seen for a follow-up. Still on a mechanical ventilator. Events from yesterday were noted. The patient had a bronchoscopy yesterday due to volume loss and consolidation of the left lung. The patient had purulent respiratory secretions and seborrheic it was suctioning was done. On today's chest x-ray there is improved aeration of the left lung. She remains on the same vent setting which included assist control of 18, tidal volume of 400, FiO2 of 40% and a PEEP of 5. The blood gases from today showed a pH of 7.4 with pCO2 of 60 and a pO2 of 96. The patient is afebrile. The patient on a broad-spectrum antibiotic coverage requiring a combination of cefepime, vancomycin, and aztreonam. Cultures still pending from the bronchial alveolar lavage. Afebrile. Her disease on few mics of levo fed for blood pressure control. She is producing adequate amount of urine output. Urine output is more than 100 mL an hour and the Lasix has been completely discontinued. White cell count is at 17.1. Creatinine is at 2.9. The patient is currently off amiodarone drip. Her cardiac rhythm atrial fibrillation with a controlled rate. Creatinine is at 2.9. On 05/16/2018, the patient is extubated. Immediately after extubation she did well however at around 8:52 PM yesterday the patient became progressively more short of breath and developed diminished level of consciousness. At that point she was placed on a BiPAP at a pressure of 12/5 cm of water. On today's evaluation, the patient is still lethargic. She is arousable and she is following simple commands upon repeated stimulation. She is very symptoms with the BiPAP machine. Her blood gas was performed this morning and showed a pH of 7.33 with a pCO2 of 69 and a pO2 of 74. This was on FiO2 of 40%. The patient' s chest x-ray still showing left lower lobe pneumonia essentially retrocardiac. Overall volume status is improved. Earlier this morning, the patient was given a dose of Lasix by nephrology. Overall fluid balance is -8 93 mL over the past 8 hours following the Lasix administration. The patient producing adequate amount of urine output. Renal function continues to improve in the creatinine is down to 2.5. Patient is currently off pressors. Her underlying rhythm is atrial fibrillation. In terms of antibiotic coverage, the patient is on a combination of cefepime and vancomycin. The bronchioloalveolar lavage is showing possible staph species and final cultures and sensitivities are still pending for now. The patient is on bronchodilators. The patient is on oral amiodarone and patient is on IV heparin in regards to her atrial fibrillation. Currently off pressors. Objective - Vital Signs Vital signs: Vital Signs Temp 97.6 F 05/16/18 12:00 Pulse 106 H 05/16/18 13:00 Resp 12 05/16/18 13:00 BP 88/53 05/14/18 22:00 Pulse Ox 98 05/16/18 13:00 Intake & Output 05/15/18 05/16/18 05/16/18 18:59 06:59 18:59 Intake Total 1216.210 260 220 Output Total 1270 1100 755 Balance -53.790 -840 -535 Weight 113.1 kg Intake: IV 490 260 170 Aztreonam 1 gm In Sodium 100 50 Chloride 0.9% 50 ml @ 100 mls/hr IVPB Q8HR [facility] Rx# :[id number] Cefepime 1 gm In Sodium 50 Chloride 0.9% 50 ml @ 100 mls/hr IVPB Q12HR [facility] Rx #:[id number] Magnesium Sulfate-D5w Pmx 100 1 gm In Dextrose/Water 1 100ml.bag @ 100 mls/hr IVPB ONCE ONE Rx#: [id number] Sodium Chloride 0.9% 1, 240 260 120 000 ml @ 20 mls/hr IV . Q24H [facility] Rx#:[id number] Intake, IV Titration 640.210 50 Amount Cefepime 1 gm In Sodium 50 Chloride 0.9% 50 ml @ 100 mls/hr IVPB Q24HR [facility] Rx #:[id number] Heparin Sod,Pork in 0.45% 500 NaCl 25,000 unit In 0.45 % NaCl 1 500ml.bag @ 9.8 UNITS/KG/HR 21.91 mls/hr IV .[id number] [facility] Rx#: [id number] Norepinephrine 16 mg In 39.281 Dextrose 5% in Water 250 ml @ Titrate IV .Q0M [facility] Rx#:[id number] Propofol 1,000 mg In 100.929 Empty Bag 1 bag @ Titrate IV .Q0M [facility] Rx#: [id number] Tube Feeding 56 Other 30 Output: Urine 1270 1100 755 Other: Voiding Method Indwelling Catheter Indwelling Catheter Indwelling Catheter ABP, PAP, CO, CI - Last Documented Arterial Blood Pressure 107/66 - Exam Gen. appearance obese, comfortable, lethargic, extubated, currently on a BiPAP at a full face mask and citrus with the BiPAP machine. Head exam was generally normal. There was no scleral icterus or corneal arcus. Mucous membranes were moist. Neck was supple and without jugular venous distension, thyromegaly, or carotid bruits. Carotids were easily palpable bilaterally. There was no adenopathy. The patient has a right IJ triple-lumen catheter in place. Lungs sounds are diminished bilaterally along with some few scattered external wheezes heard throughout the lung loyd. Breath sounds are overall diminished. Heart sounds are irregular S1-S2, no cervical murmurs appreciated. Monitor the current heave or thrill. Abdomen is obese soft nontender. Organs cannot be accurately palpated. No direct tenderness. No rebound tenderness. No guarding. Extremities revealed +1 pitting edema and there is no cyanosis or clubbing at this point. No evidence of any acute cellulitis although there is some erythema in the left lower extremity. Skin shows a stage II small wounds in the butt and the back area. No open wounds or sores. No evidence of any cellulitis. Neurologically patient is lethargic yet arousable. She is moving all 4 extremities without any limitation. Pupils are equal reactive to light. No focal logical deficits. No facial asymmetry. No nystagmus. - Labs CBC & Chem 7: 05/16/18 03:45 05/16/18 03:45 Labs: Abnormal Lab Results - Last 24 Hours (Table) 05/14/18 05/15/18 05/16/18 Range/Units 04:50 17:14 03:45 WBC 15.3 H (3.8-10.6) k/uL RBC 3.01 L (3.80-5.40) m/uL Hgb 7.7 L (11.4-16.0) gm/dL Hct 25.9 L (34.0-46.0) % MCHC 29.6 L (31.0-37.0) g/dL RDW 18.4 H (11.5-15.5) % Neutrophils # 13.3 H (1.3-7.7) k/uL Lymphocytes # 0.9 L (1.0-4.8) k/uL APTT (22.0-30.0) sec ABG pH (7.35-7.45) ABG pCO2 (35-45) mmHg ABG pO2 (83-108) mmHg ABG HCO3 (21-25) mmol/L Sodium (137-145) mmol/L Chloride (98-107) mmol/L Carbon Dioxide (22-30) mmol/L BUN (7-17) mg/dL Creatinine (0.52-1.04) mg/dL Glucose (74-99) mg/dL POC Glucose (mg/dL) 112 H (75-99) mg/dL Calcium (8.4-10.2) mg/dL Phosphorus (2.5-4.5) mg/dL Iron 20 L (50-170) ug/dL TIBC 207 L (228-460) ug/dL Iron Saturation 9.66 L (12.00-45.00) 05/16/18 05/16/18 05/16/18 Range/Units 03:45 03:45 05:37 WBC (3.8-10.6) k/uL RBC (3.80-5.40) m/uL Hgb (11.4-16.0) gm/dL Hct (34.0-46.0) % MCHC (31.0-37.0) g/dL RDW (11.5-15.5) % Neutrophils # (1.3-7.7) k/uL Lymphocytes # (1.0-4.8) k/uL APTT 47.0 H (22.0-30.0) sec ABG pH (7.35-7.45) ABG pCO2 (35-45) mmHg ABG pO2 (83-108) mmHg ABG HCO3 (21-25) mmol/L Sodium 133 L (137-145) mmol/L Chloride 91 L (98-107) mmol/L Carbon Dioxide 34 H (22-30) mmol/L BUN 55 H (7-17) mg/dL Creatinine 2.50 H (0.52-1.04) mg/dL Glucose 69 L (74-99) mg/dL POC Glucose (mg/dL) 66 L (75-99) mg/dL Calcium 8.3 L (8.4-10.2) mg/dL Phosphorus 6.3 H (2.5-4.5) mg/dL Iron (50-170) ug/dL TIBC (228-460) ug/dL Iron Saturation (12.00-45.00) 05/16/18 05/16/18 Range/Units 05:53 09:55 WBC (3.8-10.6) k/uL RBC (3.80-5.40) m/uL Hgb (11.4-16.0) gm/dL Hct (34.0-46.0) % MCHC (31.0-37.0) g/dL RDW (11.5-15.5) % Neutrophils # (1.3-7.7) k/uL Lymphocytes # (1.0-4.8) k/uL APTT (22.0-30.0) sec ABG pH 7.33 L (7.35-7.45) ABG pCO2 69 H (35-45) mmHg ABG pO2 74 L (83-108) mmHg ABG HCO3 35 H (21-25) mmol/L Sodium (137-145) mmol/L Chloride (98-107) mmol/L Carbon Dioxide (22-30) mmol/L BUN (7-17) mg/dL Creatinine (0.52-1.04) mg/dL Glucose (74-99) mg/dL POC Glucose (mg/dL) 156 H (75-99) mg/dL Calcium (8.4-10.2) mg/dL Phosphorus (2.5-4.5) mg/dL Iron (50-170) ug/dL TIBC (228-460) ug/dL Iron Saturation (12.00-45.00) Microbiology - Last 24 Hours (Table) 05/14/18 10:05 Gram Stain - Preliminary Bronchial Washings - Left Bronchial Washings Culture - Preliminary Presumptive Staph aureus 05/11/18 15:00 Blood Culture - Preliminary Blood No Growth after 96 hours Assessment and Plan Plan: Assessment 1 acute on top of chronic hypoxic and hypercapnic respiratory failure. The patient was extubated yesterday to a BiPAP and the blood gases from today showing a mild component of respiratory acidosis on top of chronic hypercapnic the story failure. This is probably affecting her mentation is causing some mild degree of CO2 narcosis. 2 acute respiratory failure, hypoxic and hypercapnic, with a component of a left lung pneumonia, post bronchoscopy, appendectomy take it was suctioning and bronchioloalveolar lavage and the cultures are showing staph species. Further identification of the microorganism is still pending. Meanwhile the patient is covered with a combination of cefepime and vancomycin. The patient is also on BiPAP for respiratory support. Today chest x-ray shows persistent consolidation of left lung base although the volume status is improved. 3 acute hypotension him a the patient was on pressors and the patient was weaned off the levo fed and the patient is producing adequate amount of urine output. The patient has an ejection fraction of 30-35% 4 CHF with an ejection fraction of 30-35% and moderate degree of pulmonary hypertension. The patient has obvious systolic dysfunction 5 chronic kidney failure with stage III kidney disease and an acute kidney injury on top of chronic renal failure, likely secondary to hypotension, cardiorenal factors versus sepsis. The patient's urine output is improved. The Lasix was discontinued and the creatinine today is at 2.5. 6 stage III chronic decubitus ulceration without evidence of an acute cellulitis 7 morbid obesity with a BMI 41.0 8 chronic atrial fibrillation and the patient is on IV heparin drip for now, rate controlled and the patient is currently on IV heparin 9 coronary artery disease 10 recent hospitalization for diarrhea/C. diff colitis and the stool analysis was negative and the patient completed the course of deficit on outpatient basis 11 hypertension 12 degenerative arthritis and sciatica and chronic shoulder and back pain and knee pain and the patient has been wheelchair bound 13 COPD 14 diminished level of consciousness, probably due to a mild component of CO2 narcosis. Rule out underlying obstructive sleep apnea in addition. Patient is morbidly obese with a BMI of 41.5. Plan Antinea BiPAP at a pressure of 14/5 cm of water with an FiO2 of 40%. Monitor mental status. Continue cefepime and vancomycin. Awaiting final cultures and sensitivities from the bronchioloalveolar lavage which is indicating staphylococcal growth. Currently on no pressors. Continue IV heparin. Continue the rest of the medications and the patient was monitored very closely in the ICU. She is still a full code. Continued care evaluation, 32 minutes. Time with Patient: Greater than 30
[2018-05-16 14:17] LABS: Glucose,Whole Blood 75 mg/dL (75-99)
[2018-05-16 15:06] LABS: Glucose,Whole Blood 75 mg/dL (75-99)
--- NOTE | 2018-05-16 16:13 | P.PN ---
Subjective Progress Note Date: 05/16/18 Principal diagnosis: respiratory distress Patient is a 67-year-old female multiple medical problems including CKD stage III, type 2 diabetes mellitus, diastolic heart failure, COPD with chronic CO2 retention chronic O2 dependence on 3L and nocturnal BiPAP, chronic atrial fibrillation on Eliquis was brought into emergency department due to respiratory distress. He was intubated in the emergency department. She was initially found have an elevated BNP and slightly elevated troponin. She was started on Solu-Medrol and Lasix in the ER and then developed A. fib with RVR. When this happen her respiratory status worsened and she was subsequently intubated. She was started on a Cardizem and Lasix drip. Follow-up chest x- ray after intubation showed worsening pulmonary edema and small bilateral pleural effusions. She was seen by pulmonary critical care on the morning of 05/11 and had a central line and a left brachial Artline placed. Infectious disease was consulted as patient had been placed on aztreonam and vancomycin secondary to ALLERGIES. She developed acute hypotension and required being placed on IV vasopressors. Repeat echocardiogram was performed which showed an ejection fraction of 30-35% which was worse from prior. Infectious disease found her to have multiple decubitus ulcers as well as mild cellulitis of the left leg. She had been placed on IV amio for arrhythmia and this was transitioned to oral amio on 05/14. They recommended continuing Azactam and vancomycin. On 05/14 her chest x-ray showed worsening volume loss in the left lower lobe. She subsequently underwent bronchoscopy. Pulmonary was concerned for worsening pneumonia that could be healthcare associated and added cefepime in addition to the Azactam and vancomycin. She has been seen by nephrology as her creatinine had been increasing with use of the Lasix drip. Nephrology discontinued Lasix. She was extubated on the morning of 05/15. Overnight she required BiPAP (typical for her) and was unable to wean off BiPAP on the morning of 05/16. On the morning of 05/16 her creatinine was slightly better but she was lethargic and showing a worsening chest x-ray. She was given an additional dose of Lasix. Patient seen and examined at bedside. She currently to will follow commands to giving a thumbs up. She has not consistently answering questions by nodding yes or no and she is currently on the BiPAP. She is lethargic and closes eyes quickly. Case discussed with nursing increasing signs of fluid. Objective - Vital Signs Vital signs: Vital Signs Temp 97.6 F 05/16/18 12:00 Pulse 108 H 05/16/18 15:57 Resp 12 05/16/18 15:00 BP 88/53 05/14/18 22:00 Pulse Ox 99 05/16/18 15:00 Intake & Output 05/15/18 05/16/18 05/16/18 18:59 06:59 18:59 Intake Total 1216.210 260 260 Output Total 1270 1100 1010 Balance -53.790 -840 -750 Weight 113.1 kg Intake: IV 490 260 210 Aztreonam 1 gm In Sodium 100 50 Chloride 0.9% 50 ml @ 100 mls/hr IVPB Q8HR [facility] Rx# :[id number] Cefepime 1 gm In Sodium 50 Chloride 0.9% 50 ml @ 100 mls/hr IVPB Q12HR [facility] Rx #:[id number] Magnesium Sulfate-D5w Pmx 100 1 gm In Dextrose/Water 1 100ml.bag @ 100 mls/hr IVPB ONCE ONE Rx#: [id number] Sodium Chloride 0.9% 1, 240 260 160 000 ml @ 20 mls/hr IV . Q24H [facility] Rx#:[id number] Intake, IV Titration 640.210 50 Amount Cefepime 1 gm In Sodium 50 Chloride 0.9% 50 ml @ 100 mls/hr IVPB Q24HR [facility] Rx #:[id number] Heparin Sod,Pork in 0.45% 500 NaCl 25,000 unit In 0.45 % NaCl 1 500ml.bag @ 9.8 UNITS/KG/HR 21.91 mls/hr IV .[id number] [facility] Rx#: [id number] Norepinephrine 16 mg In 39.281 Dextrose 5% in Water 250 ml @ Titrate IV .Q0M [facility] Rx#:[id number] Propofol 1,000 mg In 100.929 Empty Bag 1 bag @ Titrate IV .Q0M [facility] Rx#: [id number] Tube Feeding 56 Other 30 Output: Urine 1270 1100 1010 Other: Voiding Method Indwelling Catheter Indwelling Catheter Indwelling Catheter ABP, PAP, CO, CI - Last Documented Arterial Blood Pressure 104/64 - Exam General: Appearing, moderate distress, morbidly obese, appears at stated age Derm: warm, dry, dressing in place over left lower extremity wound Head: atraumatic, normocephalic, symmetric Eyes: EOMI, no lid lag, anicteric sclera Mouth: no lip lesion, mucus membranes moist Cardiovascular: S1S2 reg, no murmur, positive posterior tibial pulse bilateral, Lungs: Coarse breath sounds bilaterally with diminished breath sounds at the bases, no rhonchi, no rales , no accessory muscle use, on BiPAP Abdominal: soft, nontender to palpation, no guarding, organs unable to be palpated Ext: no gross muscle atrophy, 2+ pitting edema, no contractures Neuro: CN II-XI grossly intact, moving all 4 4 extremities independently Psych: On BiPAP, able to follow commands with opening and closing eyes as well as thumbs up sign. Flat affect. Lethargic. - Labs CBC & Chem 7: 05/16/18 03:45 05/16/18 03:45 Labs: Abnormal Lab Results - Last 24 Hours (Table) 05/14/18 05/15/18 05/16/18 Range/Units 04:50 17:14 03:45 WBC 15.3 H (3.8-10.6) k/uL RBC 3.01 L (3.80-5.40) m/uL Hgb 7.7 L (11.4-16.0) gm/dL Hct 25.9 L (34.0-46.0) % MCHC 29.6 L (31.0-37.0) g/dL RDW 18.4 H (11.5-15.5) % Neutrophils # 13.3 H (1.3-7.7) k/uL Lymphocytes # 0.9 L (1.0-4.8) k/uL APTT (22.0-30.0) sec ABG pH (7.35-7.45) ABG pCO2 (35-45) mmHg ABG pO2 (83-108) mmHg ABG HCO3 (21-25) mmol/L Sodium (137-145) mmol/L Chloride (98-107) mmol/L Carbon Dioxide (22-30) mmol/L BUN (7-17) mg/dL Creatinine (0.52-1.04) mg/dL Glucose (74-99) mg/dL POC Glucose (mg/dL) 112 H (75-99) mg/dL Calcium (8.4-10.2) mg/dL Phosphorus (2.5-4.5) mg/dL Iron 20 L (50-170) ug/dL TIBC 207 L (228-460) ug/dL Iron Saturation 9.66 L (12.00-45.00) 05/16/18 05/16/18 05/16/18 Range/Units 03:45 03:45 05:37 WBC (3.8-10.6) k/uL RBC (3.80-5.40) m/uL Hgb (11.4-16.0) gm/dL Hct (34.0-46.0) % MCHC (31.0-37.0) g/dL RDW (11.5-15.5) % Neutrophils # (1.3-7.7) k/uL Lymphocytes # (1.0-4.8) k/uL APTT 47.0 H (22.0-30.0) sec ABG pH (7.35-7.45) ABG pCO2 (35-45) mmHg ABG pO2 (83-108) mmHg ABG HCO3 (21-25) mmol/L Sodium 133 L (137-145) mmol/L Chloride 91 L (98-107) mmol/L Carbon Dioxide 34 H (22-30) mmol/L BUN 55 H (7-17) mg/dL Creatinine 2.50 H (0.52-1.04) mg/dL Glucose 69 L (74-99) mg/dL POC Glucose (mg/dL) 66 L (75-99) mg/dL Calcium 8.3 L (8.4-10.2) mg/dL Phosphorus 6.3 H (2.5-4.5) mg/dL Iron (50-170) ug/dL TIBC (228-460) ug/dL Iron Saturation (12.00-45.00) 05/16/18 05/16/18 Range/Units 05:53 09:55 WBC (3.8-10.6) k/uL RBC (3.80-5.40) m/uL Hgb (11.4-16.0) gm/dL Hct (34.0-46.0) % MCHC (31.0-37.0) g/dL RDW (11.5-15.5) % Neutrophils # (1.3-7.7) k/uL Lymphocytes # (1.0-4.8) k/uL APTT (22.0-30.0) sec ABG pH 7.33 L (7.35-7.45) ABG pCO2 69 H (35-45) mmHg ABG pO2 74 L (83-108) mmHg ABG HCO3 35 H (21-25) mmol/L Sodium (137-145) mmol/L Chloride (98-107) mmol/L Carbon Dioxide (22-30) mmol/L BUN (7-17) mg/dL Creatinine (0.52-1.04) mg/dL Glucose (74-99) mg/dL POC Glucose (mg/dL) 156 H (75-99) mg/dL Calcium (8.4-10.2) mg/dL Phosphorus (2.5-4.5) mg/dL Iron (50-170) ug/dL TIBC (228-460) ug/dL Iron Saturation (12.00-45.00) Microbiology - Last 24 Hours (Table) 05/14/18 10:05 Gram Stain - Preliminary Bronchial Washings - Left Bronchial Washings Culture - Preliminary Presumptive Staph aureus 05/11/18 15:00 Blood Culture - Preliminary Blood No Growth after 96 hours Assessment and Plan Assessment: Pneumonia, likely healthcare, growing out staff -On cefepime, vanco restarted with presumptive staph on sputum culture - ID recs -Bronchodilators -Pulmonary hygiene Hypoglycemia -Patient failed swallow evaluation -Monitor Accu-Cheks every 4 hours -D50 as needed for hypoglycemia Acute systolic CHF exacerbation with ejection fraction 30-35% -lasix X 1 today -Ideally will need to be on an ALEJA inhibitor but cannot tolerate secondary to renal failure and hypotension -Ideally beta carola but still with borderline BP BASIA on CKD stage III with hyponatremia - Appears + fluid balance despite lasix gtt - lasxi X 1 today, vanco restarted due to presumptive staph - nephrology following - renal dose medications - avoid additional nephrotoxic agents P. A. fib with RVR -On oral amiodarone - on heparin gtt Anemia, worsening - monitor for signs of bleeding -Ferritin pending Acute on chronic hypoxic hypercapnic respiratory failure due to obesity hypoventilation syndrome and pneumonia -Currently on BiPAP therapy, management as per critical care. Morbid obesity BMI 42 - structured outpatient weight loss Stage III decubitus ulcers with possible mild cellulitis -ID recs - off load - barrier cream COPD without exacerbation - pulm following - bronchdilators Acute on chronic debility -Physical therapy evaluation 1 respiratory status stable Resolved: septic shock A fib with RVR Subacute diarrhea DVT prophylaxis: heparin gtt Discussed with: nursing, Dr. Lasw Anticipated discharge: 3-[address]: Likely will need SNF A total of 35 minutes was spent on the care of this complex patient more than 50 % of the time was spent in counseling and care coordination.
[2018-05-16 16:51] LABS: Glucose,Whole Blood 44 mg/dL (75-99)
[2018-05-16] MEDS: DEXTROSE 5%-0.45% NACL 1,000 ML IV SCH (17:00)
[2018-05-16 17:11] LABS: Glucose,Whole Blood 134 mg/dL (75-99)
[2018-05-16 18:16] LABS: Glucose,Whole Blood 109 mg/dL (75-99)
[2018-05-16 19:23] LABS: Glucose,Whole Blood 86 mg/dL (75-99)
[2018-05-16] MEDS: SODIUM CHLORIDE 0.9% 1,000 ML IV SCH (19:50)
[2018-05-16] MEDS: HEPARIN SOD,PORK IN 0.45% NACL 25,000 UNIT in 0.45% NACL 1 500ML.BAG IV SCH (19:52)
[2018-05-16 20:21] LABS: Glucose,Whole Blood 77 mg/dL (75-99)
[2018-05-16] MEDS ORDERED: VANCOMYCIN 1,500 MG in SODIUM CHLORIDE 0.9% 250 ML IVPB ONE (21:00)
[2018-05-16 22:11] LABS: Glucose,Whole Blood 79 mg/dL (75-99)
[2018-05-16 23:45] LABS: Glucose,Whole Blood 83 mg/dL (75-99)
[2018-05-17] MEDS: INSULIN ASPART 100 UNIT/ML 1 ML 10 ML VIAL SQ SCH ×6 (00:22→20:36)
[2018-05-17 02:16] LABS: Glucose,Whole Blood 82 mg/dL (75-99)
[2018-05-17] MEDS: IPRATROPIUM-ALBUTEROL 3 ML NEB INHALATION SCH ×6 (03:20→23:18)
[2018-05-17 04:35] LABS: Anisocytosis Slight; HCT 25.1 % (34.0-46.0); HGB 7.5 gm/dL (11.4-16.0); Hypochromasia Marked; MCH 25.6 pg (25.0-35.0); MCHC 29.8 g/dL (31.0-37.0); MCV 86.1 fL (80.0-100.0); Mean Platelet Volume 8.1; Platelet Count 291 k/uL (150-450); RBC 2.92 m/uL (3.80-5.40); RDW 18.4 % (11.5-15.5); WBC 16.6 k/uL (3.8-10.6)
[2018-05-17 04:51] LABS: Calcium 8.6 mg/dL (8.4-10.2); Phosphorus 5.8 mg/dL (2.5-4.5); Potassium 3.7 mmol/L (3.5-5.1)
[2018-05-17 06:05] LABS: Glucose,Whole Blood 85 mg/dL (75-99)
--- NOTE | 2018-05-17 08:08 | XR ---
EXAMINATION TYPE: XR chest 1V portable DATE OF EXAM: 05/17/2018 HISTORY: Shortness of breath. COMPARISON: May 16, 2018 TECHNIQUE: Single view of the chest is submitted. FINDINGS: Demonstrated are scattered senescent parenchymal change. Persistent left lower lobe atelectasis, infiltrate and/or effusion. The heart is stable. Hilar and mediastinal structures are within normal limits. Degenerative changes are seen of the dorsal spine. IMPRESSION: 1. Stable chest.
[2018-05-17] MEDS: POTASSIUM CHLORIDE 20 MEQ in WATER FOR INJECTION 1 100ML.BAG IVPB SCH ×2 (08:43→10:25)
[2018-05-17] MEDS ORDERED: DILTIAZEM 50 MG in SODIUM CHLORIDE 0.9% 40 ML IV SCH (08:45)
[2018-05-17] MEDS: AMIODARONE 200 MG TAB PO SCH (08:46)
[2018-05-17] MEDS: CEFEPIME 1 GM in SODIUM CHLORIDE 0.9% 50 ML IVPB SCH (08:46)
[2018-05-17] MEDS: ASPIRIN 325 MG TAB PO SCH (08:46)
--- NOTE | 2018-05-17 08:46 | P.PN ---
Subjective Progress Note Date: 05/17/18 Principal diagnosis: Acute on top of chronic hypoxic and hypercarbic respiratory failure secondary to acute congestive heart failure, with systolic dysfunction, and left lung pneumonia, with presumable staph aureus This is a 67-year-old female with history of multiple medical problems including chronic hypercapnic respiratory failure, obstructive sleep apnea syndrome, COPD, patient is on home oxygen at 3 L, she is also on BiPAP and seems to be nocturnally BiPAP dependent. Patient is also known to have history of chronic atrial fibrillation, chronic decubitus ulcers, superficial leg ulcers , patient has a visiting nurse taking care of her ulcers and chronic wounds. She was noted by the visiting nurse to be dyspneic, for at least 24 hours prior to presentation. Patient has been using oxygen at home, BiPAP, and she is also on updrafts in the form of DuoNeb. Considering the patient was not noticing significant improvement, patient was advised to come to the ER. Upon arrival to the ER, patient was noted to be quite dyspneic, and did not improve much with BiPAP. Hence she was intubated by Dr. Steve Roberts, placed on mechanical ventilation, admitted to the ICU and this consult was initiated. Presently the patient is on the following ventilator settings tidal volume of 400 assist control rate of 18 FiO2 of 50% and PEEP of 5. She is in atrial fibrillation with RVR, placed on amiodarone to replace Cardizem as per cardiology. Her echocardiogram showed severe ventricular dysfunction ejection fraction of 30-35% . Hence the patient was placed on Lasix drip. Chest x-ray did show evidence of pulmonary edema. Echocardiogram also showed evidence of moderate pulmonary hypertension with a right-sided pressures in the range of 50. Patient was recently diagnosed as having C. difficile colitis, and has been on deficid on outpatient basis. ABG this morning showed a pO2 of 109 pCO2 of 60 pH of 7.43, hence I cut down the FiO2 to 45%. And I kept the same ventilator settings are unchanged. Renal functioning was noted to be abnormal creatinine is 1.90 BUN is 39 however the patient is known to have history of chronic kidney disease stage III. ProBNP level was noted to be elevated over 5500. Troponin was borderline elevated. Urine showed pyuria and bacteriuria suggestive of urinary tract infection. Patient was empirically placed on aztreonam and vancomycin. Infectious disease consultation was also initiated. On today's evaluation of 05/13/2018 I'm seeing this patient for a follow-up. The patient is sedated with Diprivan at 30 g per KG pigmented. The patient is calm and comfortable. She remains on a mechanical ventilator on assist control mode at the rate of 18, tidal volume of 400, FiO2 of 45% and a PEEP of 5. The pH is at 7.39 with a pCO2 of 60 and pO2 of 124. The peak airway pressures around 33-34 and the static airway pressures around 17. Chest x-ray shows shows improved aeration of the right upper lobe. There is haziness along the right hemidiaphragm possibly related to some trace bilateral pleural effusion and atelectatic changes in lung bases. ET tube is in a good location. There is also a right IJ triple-lumen catheter in place. Hemodynamically, the patient is still requiring pressors. This morning she was and 6 mics of norepinephrine infusion for blood pressure control. At the same time the patient was in atrial fibrillation with slight tachycardia and the heart rate was in the low 100s range. The patient was started on amiodarone and the patient was being loaded and she was on 1 mg/m of an amiodarone drip. At the same time, the patient is on Lasix drip at the dose of 10 mg an hour. CVP was checked and was at 16. The patient was afebrile. The patient had an echocardiogram that showed an ejection fraction of 30-35% consistent with moderate severe LV dysfunction. The symptom the patient moderate concentric left ventricular hypertrophy, as he was severely dilated, there is moderate degree of pulmonary hypertension with a PA pressure of around 49. The urine output was in the order of 20 mL an hour. Her net fluid balance is +3.6 L yesterday. The renal function remains impaired and the creatinine is at 2.59 consistent with acute on top of chronic renal failure. She is currently receiving tube feeds which is also at goal. Stool for C. diff was negative. The patient is on empiric antibiotic coverage with IV aztreonam and vancomycin. The choice of aztreonam was made due to concern of an underlying urine checked infection knowing that the patient's UA was abnormal at the time of admission. There is questionable cirrhotic changes in the left lower extremity and the patient is covered with vancomycin. No open wounds or sores are than stage II ulcer in the back and buttock area. On today's evaluation of 05/14/2018, the patient is being seen for a follow-up. The patient remains intubated on a mechanical ventilator. This morning, she is sedated and she is calm and comfortable. She is on Diprivan which is running at 30 g per KG pigmented. She will receive her daily sedation holiday today and her underlying mentation will be assessed. She remains on a mechanical ventilator. She is an assist-control mode of ventilation at the rate of 18, tidal volume of 400, FiO2 of 45% and a PEEP of 5. She is intubated by #[id number]. On today's chest x-ray, there is cardiomegaly and there is further volume loss and consolidation of the left lower lobe and I do suspect a partial atelectasis of the left lung probably related to endobronchial secretions as the patient is having thick purulent rest or secretions upon suctioning. Overall, she is afebrile. She is covered with a combination of as active and vancomycin. There was concern for a urine infection yesterday and the blood cultures and urine cultures still pending and they're negative for now. However , the patient is still pressor dependent and she is on Mics of norepinephrine infusion for blood pressure control. Her mean arterial pressures above 65. Her urine output improved overnight and she is producing more than 100 mL an hour on an hourly basis. Her creatinine is up to 2.8. Nephrology valve that the patient stop the Lasix drip and she'll be receiving Lasix pushes 40 mg every 12 hours. Also, she is still in nature fibrillation rhythm. Rate is controlled. She is on amiodarone 1 mg/m which I intend to stop today as the patient's rate is under good control the patient is also on IV heparin for anticoagulation regards to her atrial fibrillation. She will feeds are in the form of vital high protein and the patient is at goal at 28 mL an hour. No diarrhea. No abdominal distention. No other significant events overnight. On 05/15/2018, the patient is being seen for a follow-up. Still on a mechanical ventilator. Events from yesterday were noted. The patient had a bronchoscopy yesterday due to volume loss and consolidation of the left lung. The patient had purulent respiratory secretions and seborrheic it was suctioning was done. On today's chest x-ray there is improved aeration of the left lung. She remains on the same vent setting which included assist control of 18, tidal volume of 400, FiO2 of 40% and a PEEP of 5. The blood gases from today showed a pH of 7.4 with pCO2 of 60 and a pO2 of 96. The patient is afebrile. The patient on a broad-spectrum antibiotic coverage requiring a combination of cefepime, vancomycin, and aztreonam. Cultures still pending from the bronchial alveolar lavage. Afebrile. Her disease on few mics of levo fed for blood pressure control. She is producing adequate amount of urine output. Urine output is more than 100 mL an hour and the Lasix has been completely discontinued. White cell count is at 17.1. Creatinine is at 2.9. The patient is currently off amiodarone drip. Her cardiac rhythm atrial fibrillation with a controlled rate. Creatinine is at 2.9. On 05/16/2018, the patient is extubated. Immediately after extubation she did well however at around 8:52 PM yesterday the patient became progressively more short of breath and developed diminished level of consciousness. At that point she was placed on a BiPAP at a pressure of 12/5 cm of water. On today's evaluation, the patient is still lethargic. She is arousable and she is following simple commands upon repeated stimulation. She is very symptoms with the BiPAP machine. Her blood gas was performed this morning and showed a pH of 7.33 with a pCO2 of 69 and a pO2 of 74. This was on FiO2 of 40%. The patient' s chest x-ray still showing left lower lobe pneumonia essentially retrocardiac. Overall volume status is improved. Earlier this morning, the patient was given a dose of Lasix by nephrology. Overall fluid balance is -8 93 mL over the past 8 hours following the Lasix administration. The patient producing adequate amount of urine output. Renal function continues to improve in the creatinine is down to 2.5. Patient is currently off pressors. Her underlying rhythm is atrial fibrillation. In terms of antibiotic coverage, the patient is on a combination of cefepime and vancomycin. The bronchioloalveolar lavage is showing possible staph species and final cultures and sensitivities are still pending for now. The patient is on bronchodilators. The patient is on oral amiodarone and patient is on IV heparin in regards to her atrial fibrillation. Currently off pressors. On 05/17/2018 patient seen in follow-up in the intensive care unit. She remains lethargic, arousable to verbal and tactile stimulation. Remains on BiPAP support with pressures of 14/5, and FiO2 of 40%. Set of blood gases from yesterday showed pO2 of 74, pCO2 of 69, and pH of 7.33, consistent with acute on chronic hypercapnic respiratory failure. Today's chest x-ray has been reviewed and shows bilateral pleural effusions, interstitial edema, and persistent left lower lobe infiltrate. Bronchial washings were positive for presumed staph aureus. Final culture is pending. Patient remains on a combination of cefepime and vancomycin, afebrile, remains tachycardic with a heart rate up to 122 BPM. Patient has been nothing by mouth in view of continuous BiPAP support and failed swallow evaluation, she has been unable to take her oral amiodarone, or any of her oral medications for that reason we will start Cardizem drip at 7.5 mg per hour. She remains on heparin drip for anticoagulation which is currently infusing at a rate of 9.8 units per kilo per hour. 0.9 normal saline at a rate of 20 ML per hour. Today's labs have been reviewed, the WBC 16.6, hemoglobin is 7.5, sodium is 137, potassium 3.7, B1 is 54, and creatinine is 2.54, renal profile is relatively stable. On sounds are diminished bilaterally, with some scattered wheezes. Distant heart sounds, with soft systolic murmur. He still has 1+ pitting edema in bilateral lower extremities. Objective - Vital Signs Vital signs: Vital Signs Temp 97.8 F 05/17/18 04:00 Pulse 118 H 05/17/18 07:34 Resp 15 05/17/18 07:00 BP 88/53 05/14/18 22:00 Pulse Ox 100 05/17/18 07:00 Intake & Output 05/16/18 05/17/18 05/17/18 18:59 06:59 18:59 Intake Total 820 240 20 Output Total 1355 895 50 Balance -535 -655 -30 Weight 112.2 kg Intake: IV 270 240 20 Aztreonam 1 gm In Sodium 50 Chloride 0.9% 50 ml @ 100 mls/hr IVPB Q8HR [facility] Rx# :[id number] 20 60 Dextrose 5%-0.45% NaCl 1, 180 20 000 ml @ 20 mls/hr IV . Q24H [facility] Rx#:[id number] Sodium Chloride 0.9% 1, 200 000 ml @ 20 mls/hr IV . Q24H [facility] Rx#:[id number] Intake, IV Titration 550 Amount Cefepime 1 gm In Sodium 50 Chloride 0.9% 50 ml @ 100 mls/hr IVPB Q24HR [facility] Rx #:[id number] Heparin Sod,Pork in 0.45% 500 NaCl 25,000 unit In 0.45 % NaCl 1 500ml.bag @ 9.8 UNITS/KG/HR 21.91 mls/hr IV .[id number] [facility] Rx#: [id number] Output: Urine 1355 895 50 Other: Voiding Method Indwelling Catheter Indwelling Catheter ABP, PAP, CO, CI - Last Documented Arterial Blood Pressure 102/58 - Exam Gen. appearance obese, comfortable, lethargic, extubated, currently on a BiPAP at a full face mask and citrus with the BiPAP machine. Head exam was generally normal. There was no scleral icterus or corneal arcus. Mucous membranes were moist. Neck was supple and without jugular venous distension, thyromegaly, or carotid bruits. Carotids were easily palpable bilaterally. There was no adenopathy. The patient has a right IJ triple-lumen catheter in place. Lungs sounds are diminished bilaterally along with some few scattered external wheezes heard throughout the lung loyd. Breath sounds are overall diminished. Heart sounds are irregular S1-S2, no cervical murmurs appreciated. Monitor the current heave or thrill. Abdomen is obese soft nontender. Organs cannot be accurately palpated. No direct tenderness. No rebound tenderness. No guarding. Extremities revealed +1 pitting edema and there is no cyanosis or clubbing at this point. No evidence of any acute cellulitis although there is some erythema in the left lower extremity. Skin shows a stage II small wounds in the butt and the back area. No open wounds or sores. No evidence of any cellulitis. Neurologically patient is lethargic yet arousable. She is moving all 4 extremities without any limitation. Pupils are equal reactive to light. No focal logical deficits. No facial asymmetry. No nystagmus. - Labs CBC & Chem 7: 05/17/18 04:30 05/17/18 04:30 Labs: Abnormal Lab Results - Last 24 Hours (Table) 05/14/18 05/16/18 05/16/18 Range/Units 04:50 09:55 16:43 WBC (3.8-10.6) k/uL RBC (3.80-5.40) m/uL Hgb (11.4-16.0) gm/dL Hct (34.0-46.0) % MCHC (31.0-37.0) g/dL RDW (11.5-15.5) % APTT (22.0-30.0) sec ABG pH 7.33 L (7.35-7.45) ABG pCO2 69 H (35-45) mmHg ABG pO2 74 L (83-108) mmHg ABG HCO3 35 H (21-25) mmol/L Sodium (137-145) mmol/L Chloride (98-107) mmol/L Carbon Dioxide (22-30) mmol/L BUN (7-17) mg/dL Creatinine (0.52-1.04) mg/dL Glucose (74-99) mg/dL POC Glucose (mg/dL) 44 L (75-99) mg/dL Phosphorus (2.5-4.5) mg/dL Iron 20 L (50-170) ug/dL TIBC 207 L (228-460) ug/dL Iron Saturation 9.66 L (12.00-45.00) 05/16/18 05/16/18 05/17/18 Range/Units 17:10 18:15 04:30 WBC 16.6 H (3.8-10.6) k/uL RBC 2.92 L (3.80-5.40) m/uL Hgb 7.5 L (11.4-16.0) gm/dL Hct 25.1 L (34.0-46.0) % MCHC 29.8 L (31.0-37.0) g/dL RDW 18.4 H (11.5-15.5) % APTT (22.0-30.0) sec ABG pH (7.35-7.45) ABG pCO2 (35-45) mmHg ABG pO2 (83-108) mmHg ABG HCO3 (21-25) mmol/L Sodium (137-145) mmol/L Chloride (98-107) mmol/L Carbon Dioxide (22-30) mmol/L BUN (7-17) mg/dL Creatinine (0.52-1.04) mg/dL Glucose (74-99) mg/dL POC Glucose (mg/dL) 134 H 109 H (75-99) mg/dL Phosphorus (2.5-4.5) mg/dL Iron (50-170) ug/dL TIBC (228-460) ug/dL Iron Saturation (12.00-45.00) 05/17/18 05/17/18 Range/Units 04:30 04:30 WBC (3.8-10.6) k/uL RBC (3.80-5.40) m/uL Hgb (11.4-16.0) gm/dL Hct (34.0-46.0) % MCHC (31.0-37.0) g/dL RDW (11.5-15.5) % APTT 47.2 H (22.0-30.0) sec ABG pH (7.35-7.45) ABG pCO2 (35-45) mmHg ABG pO2 (83-108) mmHg ABG HCO3 (21-25) mmol/L Sodium 135 L (137-145) mmol/L Chloride 94 L (98-107) mmol/L Carbon Dioxide 36 H (22-30) mmol/L BUN 54 H (7-17) mg/dL Creatinine 2.54 H (0.52-1.04) mg/dL Glucose 71 L (74-99) mg/dL POC Glucose (mg/dL) (75-99) mg/dL Phosphorus 5.8 H (2.5-4.5) mg/dL Iron (50-170) ug/dL TIBC (228-460) ug/dL Iron Saturation (12.00-45.00) Microbiology - Last 24 Hours (Table) 05/11/18 15:00 Blood Culture - Preliminary Blood No Growth after 120 hours 05/14/18 10:05 Gram Stain - Preliminary Bronchial Washings - Left Bronchial Washings Culture - Preliminary Presumptive Staph aureus Assessment and Plan Plan: Assessment: 1 acute on top of chronic hypoxic and hypercapnic respiratory failure. The patient was extubated yesterday to a BiPAP and the blood gases from today showing a mild component of respiratory acidosis on top of chronic hypercapnic the story failure. This is probably affecting her mentation is causing some mild degree of CO2 narcosis. 2 acute respiratory failure, hypoxic and hypercapnic, with a component of a left lung pneumonia, post bronchoscopy, appendectomy take it was suctioning and bronchioloalveolar lavage and the cultures are showing staph species. Further identification of the microorganism is still pending. Meanwhile the patient is covered with a combination of cefepime and vancomycin. The patient is also on BiPAP for respiratory support. Today chest x-ray shows persistent consolidation of left lung base although the volume status is improved. 3 acute hypotension him a the patient was on pressors and the patient was weaned off the levo fed and the patient is producing adequate amount of urine output. The patient has an ejection fraction of 30-35% 4 CHF with an ejection fraction of 30-35% and moderate degree of pulmonary hypertension. The patient has obvious systolic dysfunction 5 chronic kidney failure with stage III kidney disease and an acute kidney injury on top of chronic renal failure, likely secondary to hypotension, cardiorenal factors versus sepsis. The patient's urine output is improved. The Lasix was discontinued and the creatinine today is at 2.5. 6 stage III chronic decubitus ulceration without evidence of an acute cellulitis 7 morbid obesity with a BMI 41.0 8 chronic atrial fibrillation and the patient is on IV heparin drip for now, rate controlled and the patient is currently on IV heparin 9 coronary artery disease 10 recent hospitalization for diarrhea/C. diff colitis and the stool analysis was negative and the patient completed the course of deficit on outpatient basis 11 hypertension 12 degenerative arthritis and sciatica and chronic shoulder and back pain and knee pain and the patient has been wheelchair bound 13 COPD 14 diminished level of consciousness, probably due to a mild component of CO2 narcosis. Rule out underlying obstructive sleep apnea in addition. Patient is morbidly obese with a BMI of 41.5. Plan: Continue BiPAP support, continue current antibiotic coverage, final culture of the bronchial washing is pending, it was presumably staph aureus. Renal profile is impaired, however it is relatively stable. Chest x-ray still shows changes consistent with his heart failure, interstitial edema, pleural effusions , and left lower lobe atelectasis/infiltrate. We will continue IV Lasix at 40 mg twice daily. Continue monitoring renal profile, electrolytes, deterioration of mentation, and worsening pulmonary status. Overall prognosis is extremely guarded in view of multiple comorbidities, impaired left ventricular systolic function, continued BiPAP dependence, chronic kidney disease. CODE STATUS will have to be addressed in the family is in. We'll continue to closely follow I performed a history & physical examination of the patient and discussed their management with my nurse practitioner, Evelia Hernandez. I reviewed the nurse practitioner's note and agree with the documented findings and plan of care. Lung sounds are diminished, with bibasilar crackles. The findings and the impression was discussed with the patient. I attest to the documentation by the nurse practitioner. Time with Patient: Greater than 30
[2018-05-17] MEDS: PANTOPRAZOLE 40 MG/10 ML VIAL IV SCH (08:47)
[2018-05-17] MEDS: FUROSEMIDE 10 MG/ML 4 ML VIAL IV SCH ×2 (08:59→21:01)
[2018-05-17 10:47] LABS: Iron Saturation 6.53 (12.00-45.00)
[2018-05-17 11:51] LABS: Glucose,Whole Blood 73 mg/dL (75-99)
[2018-05-17] MEDS ORDERED: DEXTROSE 5% IN WATER 100 ML with AMIODARONE 150 MG IV ONE (12:16)
[2018-05-17] MEDS: AMIODARONE 450 MG in DEXTROSE 5% IN WATER 250 ML IV SCH ×4 (12:53→20:36)
--- NOTE | 2018-05-17 14:12 | PN ---
PROGRESS NOTE Mrs. Pierre is a 67-year-old female, who was admitted with acute respiratory failure and was intubated. The patient also has acute on chronic renal failure. The patient is extubated. However, she is not able to take anything orally. The patient remains lethargic. Blood pressure is 100/54 mmHg. Heart rate is 117 per minute. First and second heart sounds are normal. Lungs reveal bilateral diminished air entry. Bronchial washings are positive for the Staph aureus. Chest x-ray suggestive of mild congestive cardiac failure. Patient's urine output is fairly decent. RECOMMENDATIONS: We will recommend to restart the patient on amiodarone drip and stop the Cardizem as the patient's left ventricular systolic function is impaired. MMODL / IJN: [id number] /
--- NOTE | 2018-05-17 14:16 | P.PN ---
Subjective Patient is seen in follow-up for acute kidney injury. Unclear as to what her baseline renal function is. Creatinine stable at 2.54 today. Patient presented with weakness and was noted to be due to fibrillation with RVR. Currently on amiodarone drip. She remains off all vasopressors now. She is noted to have systolic CHF with ejection fraction of 30-35%. She was extubated on May 15. Currently on BiPAP. She has failed swallow eval. Vital signs are stable. Requiring 4 mics of Levophed. General: The patient appeared well nourished and normally developed. HEENT: Head exam is unremarkable. Neck is without jugular venous distension. LUNGS: Breath sounds decreased. HEART: Irregular rate and rhythm. ABDOMEN: Abdominal exam reveals normal bowel sounds. Non-tender and non- distended. No evidence of peritonitis. EXTREMITITES: No clubbing, cyanosis, or edema. Objective - Vital Signs Vital signs: Vital Signs Temp 97.5 F L 05/17/18 08:00 Pulse 110 H 05/17/18 14:00 Resp 16 05/17/18 14:00 BP 88/53 05/14/18 22:00 Pulse Ox 93 L 05/17/18 14:00 Intake & Output 05/16/18 05/17/18 05/17/18 18:59 06:59 18:59 Intake Total 820 240 545.8 Output Total 1355 895 715 Balance -535 -655 -169.2 Weight 112.2 kg 112.2 kg Intake: IV 270 240 545.8 Aztreonam 1 gm In Sodium 50 Chloride 0.9% 50 ml @ 100 mls/hr IVPB Q8HR [facility] Rx# :[id number] D5.45NS 20 60 Dextrose 5%-0.45% NaCl 1, 180 160 000 ml @ 20 mls/hr IV . Q24H [facility] Rx#:[id number] Sodium Chloride 0.9% 1, 200 30 000 ml @ 20 mls/hr IV . Q24H [facility] Rx#:[id number] amiodarone 33.3 amiodarone bolus 100 cardizem 22.5 potassium chloride 200 Intake, IV Titration 550 Amount Cefepime 1 gm In Sodium 50 Chloride 0.9% 50 ml @ 100 mls/hr IVPB Q24HR [facility] Rx #:[id number] Heparin Sod,Pork in 0.45% 500 NaCl 25,000 unit In 0.45 % NaCl 1 500ml.bag @ 9.8 UNITS/KG/HR 21.91 mls/hr IV .[id number] [facility] Rx#: [id number] Output: Urine 1355 895 715 Other: Voiding Method Indwelling Catheter Indwelling Catheter Indwelling Catheter ABP, PAP, CO, CI - Last Documented Arterial Blood Pressure 103/50 - Labs CBC & Chem 7: 05/17/18 04:30 05/17/18 04:30 Labs: Abnormal Lab Results - Last 24 Hours (Table) 05/16/18 05/16/18 05/16/18 Range/Units 03:45 16:43 17:10 WBC (3.8-10.6) k/uL RBC (3.80-5.40) m/uL Hgb (11.4-16.0) gm/dL Hct (34.0-46.0) % MCHC (31.0-37.0) g/dL RDW (11.5-15.5) % APTT (22.0-30.0) sec Sodium (137-145) mmol/L Chloride (98-107) mmol/L Carbon Dioxide (22-30) mmol/L BUN (7-17) mg/dL Creatinine (0.52-1.04) mg/dL Glucose (74-99) mg/dL POC Glucose (mg/dL) 44 L 134 H (75-99) mg/dL Phosphorus (2.5-4.5) mg/dL Iron 13 L (50-170) ug/dL TIBC 199 L (228-460) ug/dL Iron Saturation 6.53 L (12.00-45.00) 05/16/18 05/17/18 05/17/18 Range/Units 18:15 04:30 04:30 WBC 16.6 H (3.8-10.6) k/uL RBC 2.92 L (3.80-5.40) m/uL Hgb 7.5 L (11.4-16.0) gm/dL Hct 25.1 L (34.0-46.0) % MCHC 29.8 L (31.0-37.0) g/dL RDW 18.4 H (11.5-15.5) % APTT (22.0-30.0) sec Sodium 135 L (137-145) mmol/L Chloride 94 L (98-107) mmol/L Carbon Dioxide 36 H (22-30) mmol/L BUN 54 H (7-17) mg/dL Creatinine 2.54 H (0.52-1.04) mg/dL Glucose 71 L (74-99) mg/dL POC Glucose (mg/dL) 109 H (75-99) mg/dL Phosphorus 5.8 H (2.5-4.5) mg/dL Iron (50-170) ug/dL TIBC (228-460) ug/dL Iron Saturation (12.00-45.00) 05/17/18 05/17/18 Range/Units 04:30 11:49 WBC (3.8-10.6) k/uL RBC (3.80-5.40) m/uL Hgb (11.4-16.0) gm/dL Hct (34.0-46.0) % MCHC (31.0-37.0) g/dL RDW (11.5-15.5) % APTT 47.2 H (22.0-30.0) sec Sodium (137-145) mmol/L Chloride (98-107) mmol/L Carbon Dioxide (22-30) mmol/L BUN (7-17) mg/dL Creatinine (0.52-1.04) mg/dL Glucose (74-99) mg/dL POC Glucose (mg/dL) 73 L (75-99) mg/dL Phosphorus (2.5-4.5) mg/dL Iron (50-170) ug/dL TIBC (228-460) ug/dL Iron Saturation (12.00-45.00) Microbiology - Last 24 Hours (Table) 05/14/18 10:05 Gram Stain - Final Bronchial Washings - Left Bronchial Washings Culture - Final Methicillin resist S. aureus 05/11/18 15:00 Blood Culture - Preliminary Blood No Growth after 120 hours Assessment and Plan Plan: Assessment: 1. Nonoliguric acute kidney injury secondary to ATN secondary to hemodynamic instability along with component of cardiorenal syndrome. Unclear as to what her baseline renal function is. Creatinine stable at 2.54 today. No proteinuria noted on urinalysis. 2. Atrial fibrillation with RVR, maintained on IV amiodarone. 3. Systolic CHF with ejection fraction of 30-35%. 4. Hypotension, off vasopressors. 5. Volume overload. Improving. 6. Hypokalemia secondary to diuresis. Improved post replacement. 7. Hyponatremia secondary to acute kidney injury. Improved. 8. MRSA in bronchial washings maintained on IV abx per ID. Plan: Continue lasix 40 IV bid. Avoid nephrotoxic agents and hypotensive episodes. Continue to monitor renal function and urine output. Avoid vancomycin if possible. Dose to be adjusted per pharmacy.
[2018-05-17 15:52] LABS: Glucose,Whole Blood 84 mg/dL (75-99)
[2018-05-17] MEDS: HEPARIN SOD,PORK IN 0.45% NACL 25,000 UNIT in 0.45% NACL 1 500ML.BAG IV SCH (16:17)
[2018-05-17] MEDS: DEXTROSE 5%-0.45% NACL 1,000 ML IV SCH (17:56)
[2018-05-17] MEDS: SODIUM CHLORIDE 0.9% 1,000 ML IV SCH (17:57)
[2018-05-17] MEDS ORDERED: Potassium Replacement Protocol 1 EACH MISC MISCELLANE PRN (18:39)
[2018-05-17] MEDS: POTASSIUM CHLORIDE 10 MEQ in WATER FOR INJECTION 1 100ML.BAG IVPB SCH ×2 (20:27→21:01)
[2018-05-17 20:37] LABS: Glucose,Whole Blood 89 mg/dL (75-99)
--- NOTE | 2018-05-17 22:38 | P.PN ---
Subjective Progress Note Date: 05/17/18 This is a 67-year-old morbidly obese female that came into the emergency center yesterday with shortness of breath and lethargy. Patient apparently has been bedbound for the past 3 weeks due to shortness of breath. Patient has not been eating very much and also had diarrhea. She was treated outpatient with deficit and completed the course and was then placed on antidiarrheal agent. She was admitted 2 months ago at [facility] for heart failure. She required intubation in the emergency center. She was also found to have atrial fibrillation with RVR is currently on amiodarone drip. Cardiology is following. Nephrology is also following for acute kidney injury with BUN 44 and creatinine 2.59. Patient presented with leukocytosis but afebrile. Troponins were mildly elevated at 0.046, 0.049, 0.047. Albumin 2.6, TSH 1.550. C. difficile toxin was negative. Urinalysis was cloudy, leukoesterase large, WBC 33 and bacteria rare. Blood issuing no growth at 24 hours and urine culture is in progress. Patient is currently on norepinephrine, Lasix drip, amiodarone drip, heparin drip and sedation. He guarding antibiotics patient is on Azactam and vancomycin. Initial x-ray shows mild cardiomegaly and interstitial prominence. Correlate for heart failure and mild pulmonary vascular congestion. Small to moderate left and trace left pleural effusions with adjacent atelectasis and/or consolidation. Repeat chest x-ray this morning reveals improved aeration of the right upper lung. Haziness of the right hemidiaphragm likely represents a new trace right pleural effusion. Persistent retrocardiac obesity is favored to represent a small pleural effusion and left basilar atelectasis. Overall stable lines and tubes. Echocardiogram reveals EF of 3035%, moderate concentric left ventricular hypertrophy, elderly severely dilated, mild mitral regurgitation, moderate tricuspid regurgitation, moderate pulmonary hypertension. Regarding wounds, patient has stage II decubitus ulcer on the right buttocks, left hip and the shear-type injury to the right hip area there is mild cellulitis to the left pretibial area. Patient's bowel movements are currently soft. 05/14/2018 patient remains intubated sedated and mechanically ventilated but is now with a marked reduction in the amount of vasopressor therapy. Her sedation holiday earlier today was successful. However she had significant secretions on bronchoscopy was performed in large amounts of purulent secretions were suctioned. She is comfortable at this time. 05/15/2018. The patient is now extubated. We'll likely be on BiPAP overnight. Vasopressor therapy has been weaned and has almost completely been discontinued. 05/17/2018 patient extubated but remains BiPAP dependent. She is arousable but not highly interactive. Is complaining of some itchy skin other than this has no improvement. Objective - Vital Signs Vital signs: Vital Signs Temp 97.5 F L 05/17/18 08:00 Pulse 113 H 05/17/18 22:00 Resp 15 05/17/18 22:00 BP 88/53 05/14/18 22:00 Pulse Ox 99 05/17/18 22:00 Intake & Output 05/17/18 05/17/18 05/18/18 06:59 18:59 06:59 Intake Total 240 779.0 383.3 Output Total 895 1140 320 Balance -655 -361.0 63.3 Weight 112.2 kg 112.2 kg Intake: IV 240 779.0 133.3 D5.45NS 60 Dextrose 5%-0.45% NaCl 1, 180 240 80 000 ml @ 20 mls/hr IV . Q24H [facility] Rx#:[id number] Sodium Chloride 0.9% 1, 50 20 000 ml @ 20 mls/hr IV . Q24H [facility] Rx#:[id number] amiodarone 166.5 33.3 amiodarone bolus 100 cardizem 22.5 potassium chloride 200 Intake, IV Titration 250 Amount Amiodarone 450 mg In 250 Dextrose 5% in Water 250 ml @ 1 MG/MIN 33.33 mls/ hr IV .Q7H31M [facility] Rx#: [id number] Output: Urine 895 1140 320 Other: Voiding Method Indwelling Catheter Indwelling Catheter ABP, PAP, CO, CI - Last Documented Arterial Blood Pressure 110/63 - Exam Gen: This is a morbidly obese 67-year-old female. She is now extubated and able to follow simple commands She appears to be comfortable with the BiPAP in place. HEENT: Head is atraumatic, normocephalic. Pupils equal, round. Sclerae is anicteric. Conjunctiva slightly pale. Mucous members of the mouth are dry. Oral gastric tube and ET tube in place. NECK: Supple. No JVD. No lymphadenopathy. No thyromegaly. LUNGS: Diminished bilaterally. No intercostal retractions. HEART: Irregularly irregular rate and rhythm. No murmur. ABDOMEN: Currently obese. Soft. Bowel sounds are present. No masses. No tenderness. No significant redness under her abdominal fold or breast. InterDry and nystatin powder in place. EXTREMITIES: Jared bilateral pedal edema. Waffle-type boots in place. There is erythema to the left pretibial area. NEUROLOGICAL: She is extubated and no longer sedated. Seems to be comfortable. Complains of itch - Labs CBC & Chem 7: 05/17/18 04:30 05/17/18 18:00 Labs: Abnormal Lab Results - Last 24 Hours (Table) 05/16/18 05/17/18 05/17/18 Range/Units 03:45 04:30 04:30 WBC 16.6 H (3.8-10.6) k/uL RBC 2.92 L (3.80-5.40) m/uL Hgb 7.5 L (11.4-16.0) gm/dL Hct 25.1 L (34.0-46.0) % MCHC 29.8 L (31.0-37.0) g/dL RDW 18.4 H (11.5-15.5) % APTT (22.0-30.0) sec Sodium 135 L (137-145) mmol/L Chloride 94 L (98-107) mmol/L Carbon Dioxide 36 H (22-30) mmol/L BUN 54 H (7-17) mg/dL Creatinine 2.54 H (0.52-1.04) mg/dL Glucose 71 L (74-99) mg/dL POC Glucose (mg/dL) (75-99) mg/dL Phosphorus 5.8 H (2.5-4.5) mg/dL Iron 13 L (50-170) ug/dL TIBC 199 L (228-460) ug/dL Iron Saturation 6.53 L (12.00-45.00) 05/17/18 05/17/18 Range/Units 04:30 11:49 WBC (3.8-10.6) k/uL RBC (3.80-5.40) m/uL Hgb (11.4-16.0) gm/dL Hct (34.0-46.0) % MCHC (31.0-37.0) g/dL RDW (11.5-15.5) % APTT 47.2 H (22.0-30.0) sec Sodium (137-145) mmol/L Chloride (98-107) mmol/L Carbon Dioxide (22-30) mmol/L BUN (7-17) mg/dL Creatinine (0.52-1.04) mg/dL Glucose (74-99) mg/dL POC Glucose (mg/dL) 73 L (75-99) mg/dL Phosphorus (2.5-4.5) mg/dL Iron (50-170) ug/dL TIBC (228-460) ug/dL Iron Saturation (12.00-45.00) Microbiology - Last 24 Hours (Table) 05/11/18 15 :00 Blood Culture - Final Blood No Growth after 144 hours 05/14/18 10:05 Gram Stain - Final Bronchial Washings - Left Bronchial Washings Culture - Final Methicillin resist S. aureus Microbiology 05/11/18 15:00 Blood Blood Culture - Final No Growth after 144 hours 05/14/18 10:05 Bronchial Washings - Left Gram Stain - Final 05/14/18 10:05 Bronchial Washings - Left Bronchial Washings Culture - Final Methicillin resist S. aureus 05/14/18 10:05 Bronchial Washings - Left Acid Fast Bacilli Smear - Final 05/14/18 10:05 Bronchial Washings - Left Acid Fast Bacilli Culture - Preliminary 05/14/18 10:05 Bronchial Washings - Left Fungal Culture - Preliminary 05/11/18 23:45 Urine,Catheterized Urine Culture - Final Assessment and Plan (1) Acute respiratory failure Current Visit: Yes Status: Acute Code(s): J96.00 - ACUTE RESPIRATORY FAILURE , UNSP W HYPOXIA OR HYPERCAPNIA SNOMED Code(s): 63872363 (2) COPD (chronic obstructive pulmonary disease) Current Visit: Yes Status: Acute Code(s): J44.9 - CHRONIC OBSTRUCTIVE PULMONARY DISEASE, UNSPECIFIED SNOMED Code(s): 10561817 (3) Pressure ulcer of buttock Narrative/Plan: 67-year-old presents to Hospital with respiratory failure she is now extubated and is showing improvement. The Mepilex dressing is applied to the coccyx wound. The patient's bronchoscopy reveals evidence of staph and antimicrobial therapy is being utilized with Azactam and vancomycin pending further data. She does seem to be improving but appears she will need to be on BiPAP overnight which is unusual for her at home. She does appear to have a poor prognosis. 05/17/2018 patient is extubated but is requiring ongoing BiPAP therapy due to her ongoing respiratory difficulties, she is only on 40% FiO2 but desaturates rapidly when the positive pressure ventilation is removed. Pulmonary critical care is working with the family as to overall plan. Because of the current status she is not able to eat pretty because she is so short of breath and secondly did not pass a bedside swallow test. Her prognosis is poor. MRSA pneumonia and has been found continue vancomycin at this time, cefepime will be discontinued in the morning if no further positive cultures are found. Current Visit: Yes Status: Acute Code(s): L89.309 - PRESSURE ULCER OF UNSPECIFIED BUTTOCK, UNSPECIFIED STAGE SNOMED Code(s): 250104483
[2018-05-18 00:16] LABS: Glucose,Whole Blood 79 mg/dL (75-99)
[2018-05-18] MEDS: INSULIN ASPART 100 UNIT/ML 1 ML 10 ML VIAL SQ SCH ×6 (00:23→22:27)
[2018-05-18] MEDS: IPRATROPIUM-ALBUTEROL 3 ML NEB INHALATION SCH ×5 (03:26→19:21)
[2018-05-18] MEDS: AMIODARONE 450 MG in DEXTROSE 5% IN WATER 250 ML IV SCH ×8 (03:35→22:29)
[2018-05-18 04:25] LABS: Anisocytosis Slight; HCT 24.6 % (34.0-46.0); HGB 7.4 gm/dL (11.4-16.0); Hypochromasia Marked; MCH 25.5 pg (25.0-35.0); MCHC 29.9 g/dL (31.0-37.0); MCV 85.1 fL (80.0-100.0); Mean Platelet Volume 8.1; Platelet Count 302 k/uL (150-450); RBC 2.89 m/uL (3.80-5.40); RDW 18.7 % (11.5-15.5); WBC 17.4 k/uL (3.8-10.6)
[2018-05-18 04:37] LABS: Calcium 8.8 mg/dL (8.4-10.2); Magnesium 1.9 mg/dL (1.6-2.3); Phosphorus 4.4 mg/dL (2.5-4.5); Potassium 3.9 mmol/L (3.5-5.1)
[2018-05-18 04:42] LABS: Vancomycin,Random 23.7 ug/mL
[2018-05-18] MEDS ORDERED: MAGNESIUM SULFATE-D5W PMX 1 GM in DEXTROSE/WATER 1 100ML.BAG IVPB ONE (05:56)
[2018-05-18 08:10] LABS: Glucose,Whole Blood 97 mg/dL (75-99)
--- NOTE | 2018-05-18 09:07 | P.PN ---
Subjective Progress Note Date: 05/18/18 Principal diagnosis: Acute on top of chronic hypoxic and hypercarbic respiratory failure secondary to acute congestive heart failure, with systolic dysfunction, and left lung pneumonia, with presumable staph aureus This is a 67-year-old female with history of multiple medical problems including chronic hypercapnic respiratory failure, obstructive sleep apnea syndrome, COPD, patient is on home oxygen at 3 L, she is also on BiPAP and seems to be nocturnally BiPAP dependent. Patient is also known to have history of chronic atrial fibrillation, chronic decubitus ulcers, superficial leg ulcers , patient has a visiting nurse taking care of her ulcers and chronic wounds. She was noted by the visiting nurse to be dyspneic, for at least 24 hours prior to presentation. Patient has been using oxygen at home, BiPAP, and she is also on updrafts in the form of DuoNeb. Considering the patient was not noticing significant improvement, patient was advised to come to the ER. Upon arrival to the ER, patient was noted to be quite dyspneic, and did not improve much with BiPAP. Hence she was intubated by Dr. Steve Roberts, placed on mechanical ventilation, admitted to the ICU and this consult was initiated. Presently the patient is on the following ventilator settings tidal volume of 400 assist control rate of 18 FiO2 of 50% and PEEP of 5. She is in atrial fibrillation with RVR, placed on amiodarone to replace Cardizem as per cardiology. Her echocardiogram showed severe ventricular dysfunction ejection fraction of 30-35% . Hence the patient was placed on Lasix drip. Chest x-ray did show evidence of pulmonary edema. Echocardiogram also showed evidence of moderate pulmonary hypertension with a right-sided pressures in the range of 50. Patient was recently diagnosed as having C. difficile colitis, and has been on deficid on outpatient basis. ABG this morning showed a pO2 of 109 pCO2 of 60 pH of 7.43, hence I cut down the FiO2 to 45%. And I kept the same ventilator settings are unchanged. Renal functioning was noted to be abnormal creatinine is 1.90 BUN is 39 however the patient is known to have history of chronic kidney disease stage III. ProBNP level was noted to be elevated over 5500. Troponin was borderline elevated. Urine showed pyuria and bacteriuria suggestive of urinary tract infection. Patient was empirically placed on aztreonam and vancomycin. Infectious disease consultation was also initiated. On today's evaluation of 05/13/2018 I'm seeing this patient for a follow-up. The patient is sedated with Diprivan at 30 g per KG pigmented. The patient is calm and comfortable. She remains on a mechanical ventilator on assist control mode at the rate of 18, tidal volume of 400, FiO2 of 45% and a PEEP of 5. The pH is at 7.39 with a pCO2 of 60 and pO2 of 124. The peak airway pressures around 33-34 and the static airway pressures around 17. Chest x-ray shows shows improved aeration of the right upper lobe. There is haziness along the right hemidiaphragm possibly related to some trace bilateral pleural effusion and atelectatic changes in lung bases. ET tube is in a good location. There is also a right IJ triple-lumen catheter in place. Hemodynamically, the patient is still requiring pressors. This morning she was and 6 mics of norepinephrine infusion for blood pressure control. At the same time the patient was in atrial fibrillation with slight tachycardia and the heart rate was in the low 100s range. The patient was started on amiodarone and the patient was being loaded and she was on 1 mg/m of an amiodarone drip. At the same time, the patient is on Lasix drip at the dose of 10 mg an hour. CVP was checked and was at 16. The patient was afebrile. The patient had an echocardiogram that showed an ejection fraction of 30-35% consistent with moderate severe LV dysfunction. The symptom the patient moderate concentric left ventricular hypertrophy, as he was severely dilated, there is moderate degree of pulmonary hypertension with a PA pressure of around 49. The urine output was in the order of 20 mL an hour. Her net fluid balance is +3.6 L yesterday. The renal function remains impaired and the creatinine is at 2.59 consistent with acute on top of chronic renal failure. She is currently receiving tube feeds which is also at goal. Stool for C. diff was negative. The patient is on empiric antibiotic coverage with IV aztreonam and vancomycin. The choice of aztreonam was made due to concern of an underlying urine checked infection knowing that the patient's UA was abnormal at the time of admission. There is questionable cirrhotic changes in the left lower extremity and the patient is covered with vancomycin. No open wounds or sores are than stage II ulcer in the back and buttock area. On today's evaluation of 05/14/2018, the patient is being seen for a follow-up. The patient remains intubated on a mechanical ventilator. This morning, she is sedated and she is calm and comfortable. She is on Diprivan which is running at 30 g per KG pigmented. She will receive her daily sedation holiday today and her underlying mentation will be assessed. She remains on a mechanical ventilator. She is an assist-control mode of ventilation at the rate of 18, tidal volume of 400, FiO2 of 45% and a PEEP of 5. She is intubated by #[id number]. On today's chest x-ray, there is cardiomegaly and there is further volume loss and consolidation of the left lower lobe and I do suspect a partial atelectasis of the left lung probably related to endobronchial secretions as the patient is having thick purulent rest or secretions upon suctioning. Overall, she is afebrile. She is covered with a combination of as active and vancomycin. There was concern for a urine infection yesterday and the blood cultures and urine cultures still pending and they're negative for now. However , the patient is still pressor dependent and she is on Mics of norepinephrine infusion for blood pressure control. Her mean arterial pressures above 65. Her urine output improved overnight and she is producing more than 100 mL an hour on an hourly basis. Her creatinine is up to 2.8. Nephrology valve that the patient stop the Lasix drip and she'll be receiving Lasix pushes 40 mg every 12 hours. Also, she is still in nature fibrillation rhythm. Rate is controlled. She is on amiodarone 1 mg/m which I intend to stop today as the patient's rate is under good control the patient is also on IV heparin for anticoagulation regards to her atrial fibrillation. She will feeds are in the form of vital high protein and the patient is at goal at 28 mL an hour. No diarrhea. No abdominal distention. No other significant events overnight. On 05/15/2018, the patient is being seen for a follow-up. Still on a mechanical ventilator. Events from yesterday were noted. The patient had a bronchoscopy yesterday due to volume loss and consolidation of the left lung. The patient had purulent respiratory secretions and seborrheic it was suctioning was done. On today's chest x-ray there is improved aeration of the left lung. She remains on the same vent setting which included assist control of 18, tidal volume of 400, FiO2 of 40% and a PEEP of 5. The blood gases from today showed a pH of 7.4 with pCO2 of 60 and a pO2 of 96. The patient is afebrile. The patient on a broad-spectrum antibiotic coverage requiring a combination of cefepime, vancomycin, and aztreonam. Cultures still pending from the bronchial alveolar lavage. Afebrile. Her disease on few mics of levo fed for blood pressure control. She is producing adequate amount of urine output. Urine output is more than 100 mL an hour and the Lasix has been completely discontinued. White cell count is at 17.1. Creatinine is at 2.9. The patient is currently off amiodarone drip. Her cardiac rhythm atrial fibrillation with a controlled rate. Creatinine is at 2.9. On 05/16/2018, the patient is extubated. Immediately after extubation she did well however at around 8:52 PM yesterday the patient became progressively more short of breath and developed diminished level of consciousness. At that point she was placed on a BiPAP at a pressure of 12/5 cm of water. On today's evaluation, the patient is still lethargic. She is arousable and she is following simple commands upon repeated stimulation. She is very symptoms with the BiPAP machine. Her blood gas was performed this morning and showed a pH of 7.33 with a pCO2 of 69 and a pO2 of 74. This was on FiO2 of 40%. The patient' s chest x-ray still showing left lower lobe pneumonia essentially retrocardiac. Overall volume status is improved. Earlier this morning, the patient was given a dose of Lasix by nephrology. Overall fluid balance is -8 93 mL over the past 8 hours following the Lasix administration. The patient producing adequate amount of urine output. Renal function continues to improve in the creatinine is down to 2.5. Patient is currently off pressors. Her underlying rhythm is atrial fibrillation. In terms of antibiotic coverage, the patient is on a combination of cefepime and vancomycin. The bronchioloalveolar lavage is showing possible staph species and final cultures and sensitivities are still pending for now. The patient is on bronchodilators. The patient is on oral amiodarone and patient is on IV heparin in regards to her atrial fibrillation. Currently off pressors. On 05/17/2018 patient seen in follow-up in the intensive care unit. She remains lethargic, arousable to verbal and tactile stimulation. Remains on BiPAP support with pressures of 14/5, and FiO2 of 40%. Set of blood gases from yesterday showed pO2 of 74, pCO2 of 69, and pH of 7.33, consistent with acute on chronic hypercapnic respiratory failure. Today's chest x-ray has been reviewed and shows bilateral pleural effusions, interstitial edema, and persistent left lower lobe infiltrate. Bronchial washings were positive for presumed staph aureus. Final culture is pending. Patient remains on a combination of cefepime and vancomycin, afebrile, remains tachycardic with a heart rate up to 122 BPM. Patient has been nothing by mouth in view of continuous BiPAP support and failed swallow evaluation, she has been unable to take her oral amiodarone, or any of her oral medications for that reason we will start Cardizem drip at 7.5 mg per hour. She remains on heparin drip for anticoagulation which is currently infusing at a rate of 9.8 units per kilo per hour. 0.9 normal saline at a rate of 20 ML per hour. Today's labs have been reviewed, the WBC 16.6, hemoglobin is 7.5, sodium is 137, potassium 3.7, B1 is 54, and creatinine is 2.54, renal profile is relatively stable. On sounds are diminished bilaterally, with some scattered wheezes. Distant heart sounds, with soft systolic murmur. He still has 1+ pitting edema in bilateral lower extremities. On 05/18/2018 patient seen in follow-up in the intensive care unit. She remains BiPAP dependent, lethargic, but arousable to verbal and tactile stimulation. She remains on IV diuretics, at 40 mg twice daily, and she is in - 332 mL fluid balance over the last 24 hours. His labs have been reviewed, WBC 17.4, hemoglobin 7.4, sodium is 134, potassium is 3.9, chloride is 93, BUN is 54 , creatinine is 2.0. Today's chest x-ray has been reviewed, and shows persistent left lower lobe atelectasis/infiltrate and pleural effusion. Slight improvement in aeration of the right lower lobe and appearance of right pleural effusion. She remains on BiPAP with pressures of 14 and 5, and FiO2 of 30%, and her O2 sat is 98%, will continue to wean FiO2 further. Patient has been unable to take anything by mouth in view of continuous BiPAP support and failed swallow evaluation. He remains in A. fib, and the rate is currently ranging between 113 and 127 BPM. She remains afebrile, hemodynamically stable. She is currently on amiodarone drip 0.5 mg/m, heparin drip at 11.8 units per kilo per hour. D5 half-normal saline at a rate of 20 ML per hour, lung sounds are diminished, with rails at the bases. The appearance of generalized edema is improving, and the skin on bilateral upper and lower extremities is becoming wrinkled. Patient is being treated for MRSA pneumonia, and acute on chronic systolic congestive heart failure. She has been very slow to progress. And we will update the family today, and inquire about CODE STATUS Objective - Vital Signs Vital signs: Vital Signs Temp 97.8 F 05/18/18 04:00 Pulse 115 H 05/18/18 07:43 Resp 15 05/18/18 07:00 BP 88/53 05/14/18 22:00 Pulse Ox 97 05/18/18 07:00 Intake & Output 05/17/18 05/18/18 05/18/18 18:59 06:59 18:59 Intake Total 779.0 1328.3 25 Output Total 1140 1300 65 Balance -361.0 28.3 -40 Weight 112.2 kg 113.5 kg Intake: IV 779.0 578.3 25 Dextrose 5%-0.45% NaCl 1, 240 200 20 000 ml @ 20 mls/hr IV . Q24H COUNTS INCLUDE 234 BEDS AT THE [facility] Rx#:[id number] Magnesium Sulfate-D5w Pmx 100 1 gm In Dextrose/Water 1 100ml.bag @ 100 mls/hr IVPB ONCE ONE Rx#: [id number] Potassium Chloride 10 meq 200 In Water For Injection 1 100ml.bag @ 100 mls/hr IVPB Q1H [facility] Rx#: [id number] Sodium Chloride 0.9% 1, 50 45 5 000 ml @ 20 mls/hr IV . Q24H COUNTS INCLUDE 234 BEDS AT THE [facility] Rx#:[id number] amiodarone 166.5 33.3 amiodarone bolus 100 cardizem 22.5 potassium chloride 200 Intake, IV Titration 750 Amount Amiodarone 450 mg In 250 Dextrose 5% in Water 250 ml @ 1 MG/MIN 33.33 mls/ hr IV .[id number] [facility] Rx#: [id number] Heparin Sod,Pork in 0.45% 500 NaCl 25,000 unit In 0.45 % NaCl 1 500ml.bag @ 9.8 UNITS/KG/HR 21.91 mls/hr IV .[id number] [facility] Rx#: [id number] Output: Urine 1140 1300 65 Other: Voiding Method Indwelling Catheter Indwelling Catheter ABP, PAP, CO, CI - Last Documented Arterial Blood Pressure 105/67 - Exam Gen. appearance obese, comfortable, lethargic, extubated, currently on a BiPAP at a full face mask and citrus with the BiPAP machine. Head exam was generally normal. There was no scleral icterus or corneal arcus. Mucous membranes were moist. Neck was supple and without jugular venous distension, thyromegaly, or carotid bruits. Carotids were easily palpable bilaterally. There was no adenopathy. The patient has a right IJ triple-lumen catheter in place. Lungs sounds are diminished bilaterally with bibasilar crackles. Heart sounds are irregular S1-S2, no cervical murmurs appreciated. Monitor the current heave or thrill. Abdomen is obese soft nontender. Organs cannot be accurately palpated. No direct tenderness. No rebound tenderness. No guarding. Extremities revealed +1 pitting edema and there is no cyanosis or clubbing at this point. No evidence of any acute cellulitis although there is some erythema in the left lower extremity. Skin shows a stage II small wounds in the butt and the back area. No open wounds or sores. No evidence of any cellulitis. Neurologically patient is lethargic yet arousable. She is moving all 4 extremities without any limitation. Pupils are equal reactive to light. No focal logical deficits. No facial asymmetry. No nystagmus. - Labs CBC & Chem 7: 05/18/18 04:10 05/18/18 04:10 Labs: Abnormal Lab Results - Last 24 Hours (Table) 05/16/18 05/17/18 05/18/18 Range/Units 03:45 11:49 04:10 WBC 17.4 H (3.8-10.6) k/uL RBC 2.89 L (3.80-5.40) m/uL Hgb 7.4 L (11.4-16.0) gm/dL Hct 24.6 L (34.0-46.0) % MCHC 29.9 L (31.0-37.0) g/dL RDW 18.7 H (11.5-15.5) % APTT (22.0-30.0) sec Sodium (137-145) mmol/L Chloride (98-107) mmol/L Carbon Dioxide (22-30) mmol/L BUN (7-17) mg/dL Creatinine (0.52-1.04) mg/dL POC Glucose (mg/dL) 73 L (75-99) mg/dL Iron 13 L (50-170) ug/dL TIBC 199 L (228-460) ug/dL Iron Saturation 6.53 L (12.00-45.00) 05/18/18 05/18/18 Range/Units 04:10 04:10 WBC (3.8-10.6) k/uL RBC (3.80-5.40) m/uL Hgb (11.4-16.0) gm/dL Hct (34.0-46.0) % MCHC (31.0-37.0) g/dL RDW (11.5-15.5) % APTT 44.6 H (22.0-30.0) sec Sodium 134 L (137-145) mmol/L Chloride 93 L (98-107) mmol/L Carbon Dioxide 34 H (22-30) mmol/L BUN 54 H (7-17) mg/dL Creatinine 2.00 H (0.52-1.04) mg/dL POC Glucose (mg/dL) (75-99) mg/dL Iron (50-170) ug/dL TIBC (228-460) ug/dL Iron Saturation (12.00-45.00) Microbiology - Last 24 Hours (Table) 05/11/18 15:00 Blood Culture - Final Blood No Growth after 144 hours 05/14/18 10:05 Gram Stain - Final Bronchial Washings - Left Bronchial Washings Culture - Final Methicillin resist S. aureus Assessment and Plan Plan: Assessment: 1 acute on top of chronic hypoxic and hypercapnic respiratory failure. The patient was extubated yesterday to a BiPAP and the blood gases from today showing a mild component of respiratory acidosis on top of chronic hypercapnic the story failure. This is probably affecting her mentation is causing some mild degree of CO2 narcosis. 2 acute respiratory failure, hypoxic and hypercapnic, with a component of a left lung pneumonia, post bronchoscopy, appendectomy take it was suctioning and bronchioloalveolar lavage and the cultures are showing staph species. Further identification of the microorganism is still pending. Meanwhile the patient is covered with a combination of cefepime and vancomycin. The patient is also on BiPAP for respiratory support. Today chest x-ray shows persistent consolidation of left lung base although the volume status is improved. 3 acute hypotension him a the patient was on pressors and the patient was weaned off the levo fed and the patient is producing adequate amount of urine output. The patient has an ejection fraction of 30-35% 4 CHF with an ejection fraction of 30-35% and moderate degree of pulmonary hypertension. The patient has obvious systolic dysfunction 5 chronic kidney failure with stage III kidney disease and an acute kidney injury on top of chronic renal failure, likely secondary to hypotension, cardiorenal factors versus sepsis. The patient's urine output is improved. The Lasix was discontinued and the creatinine today is at 2.5. 6 stage III chronic decubitus ulceration without evidence of an acute cellulitis 7 morbid obesity with a BMI 41.0 8 chronic atrial fibrillation and the patient is on IV heparin drip for now, rate controlled and the patient is currently on IV heparin 9 coronary artery disease 10 recent hospitalization for diarrhea/C. diff colitis and the stool analysis was negative and the patient completed the course of deficit on outpatient basis 11 hypertension 12 degenerative arthritis and sciatica and chronic shoulder and back pain and knee pain and the patient has been wheelchair bound 13 COPD 14 diminished level of consciousness, probably due to a mild component of CO2 narcosis. Rule out underlying obstructive sleep apnea in addition. Patient is morbidly obese with a BMI of 41.5. Plan: Continue current medical treatment, antibiotics for MRSA pneumonia, continue IV diuretics. Patient remains off vasopressors. She remains BiPAP dependent, lethargic, but arousable, she has been unable to take anything orally. We will have to address her nutrition, and TPN will be started, dietary consult was placed for RD. Today's chest x-ray has been reviewed, left lower lobe infiltrate and oral effusion appeared to be stable, and there is slight improvement in aeration of the right lower lobe, and appearance of right pleural effusion. Patient's family will be updated, and CODE STATUS will be addressed in view of patient's slow recovery, multiple comorbidities. I performed a history & physical examination of the patient and discussed their management with my nurse practitioner, Evelia Hernandez. I reviewed the nurse practitioner's note and agree with the documented findings and plan of care. Lung sounds are diminished, with bibasilar crackles. The findings and the impression was discussed with the patient. I attest to the documentation by the nurse practitioner. Time with Patient: Greater than 30
[2018-05-18] MEDS: ASPIRIN 325 MG TAB PO SCH (09:17)
[2018-05-18] MEDS: CEFEPIME 1 GM in SODIUM CHLORIDE 0.9% 50 ML IVPB SCH (09:38)
[2018-05-18] MEDS: PANTOPRAZOLE 40 MG/10 ML VIAL IV SCH (09:38)
[2018-05-18] MEDS: FUROSEMIDE 10 MG/ML 4 ML VIAL IV SCH ×2 (09:38→22:29)
--- NOTE | 2018-05-18 10:56 | P.PN ---
Subjective Patient is seen in follow-up for acute kidney injury. Unclear as to what her baseline renal function is. Creatinine down to 2.0 today. Patient presented with weakness and was noted to be due to fibrillation with RVR. Currently on amiodarone drip. She remains off all vasopressors now. She is noted to have systolic CHF with ejection fraction of 30-35%. She was extubated on May 15. Currently on BiPAP. She has failed swallow eval. TPN to be started today. Vital signs are stable. Requiring 4 mics of Levophed. General: The patient appeared well nourished and normally developed. HEENT: Head exam is unremarkable. Neck is without jugular venous distension. LUNGS: Breath sounds decreased. HEART: Irregular rate and rhythm. ABDOMEN: Abdominal exam reveals normal bowel sounds. Non-tender and non- distended. No evidence of peritonitis. EXTREMITITES: No clubbing, cyanosis, or edema. Objective - Vital Signs Vital signs: Vital Signs Temp 97.1 F L 05/18/18 08:30 Pulse 112 H 05/18/18 09:00 Resp 15 05/18/18 09:00 BP 88/53 05/14/18 22:00 Pulse Ox 92 L 05/18/18 09:00 Intake & Output 05/17/18 05/18/18 05/18/18 18:59 06:59 18:59 Intake Total 779.0 1328.3 65 Output Total 1140 1300 220 Balance -361.0 28.3 -155 Weight 112.2 kg 113.5 kg 113.5 kg Intake: IV 779.0 578.3 65 Dextrose 5%-0.45% NaCl 1, 240 200 50 000 ml @ 20 mls/hr IV . Q24H [facility] Rx#:[id number] Magnesium Sulfate-D5w Pmx 100 1 gm In Dextrose/Water 1 100ml.bag @ 100 mls/hr IVPB ONCE ONE Rx#: [id number] Potassium Chloride 10 meq 200 In Water For Injection 1 100ml.bag @ 100 mls/hr IVPB Q1H [facility] Rx#: [id number] Sodium Chloride 0.9% 1, 50 45 15 000 ml @ 20 mls/hr IV . Q24H [facility] Rx#:[id number] amiodarone 166.5 33.3 amiodarone bolus 100 cardizem 22.5 potassium chloride 200 Intake, IV Titration 750 Amount Amiodarone 450 mg In 250 Dextrose 5% in Water 250 ml @ 1 MG/MIN 33.33 mls/ hr IV .Q7H31M [facility] Rx#: [id number] Heparin Sod,Pork in 0.45% 500 NaCl 25,000 unit In 0.45 % NaCl 1 500ml.bag @ 9.8 UNITS/KG/HR 21.91 mls/hr IV .[id number] [facility] Rx#: [id number] Output: Urine 1140 1300 220 Other: Voiding Method Indwelling Catheter Indwelling Catheter Indwelling Catheter ABP, PAP, CO, CI - Last Documented Arterial Blood Pressure 116/72 - Labs CBC & Chem 7: 05/18/18 04:10 05/18/18 04:10 Labs: Abnormal Lab Results - Last 24 Hours (Table) 05/16/18 05/17/18 05/18/18 Range/Units 03:45 11:49 04:10 WBC 17.4 H (3.8-10.6) k/uL RBC 2.89 L (3.80-5.40) m/uL Hgb 7.4 L (11.4-16.0) gm/dL Hct 24.6 L (34.0-46.0) % MCHC 29.9 L (31.0-37.0) g/dL RDW 18.7 H (11.5-15.5) % APTT (22.0-30.0) sec Sodium (137-145) mmol/L Chloride (98-107) mmol/L Carbon Dioxide (22-30) mmol/L BUN (7-17) mg/dL Creatinine (0.52-1.04) mg/dL POC Glucose (mg/dL) 73 L (75-99) mg/dL Iron 13 L (50-170) ug/dL TIBC 199 L (228-460) ug/dL Iron Saturation 6.53 L (12.00-45.00) 05/18/18 05/18/18 Range/Units 04:10 04:10 WBC (3.8-10.6) k/uL RBC (3.80-5.40) m/uL Hgb (11.4-16.0) gm/dL Hct (34.0-46.0) % MCHC (31.0-37.0) g/dL RDW (11.5-15.5) % APTT 44.6 H (22.0-30.0) sec Sodium 134 L (137-145) mmol/L Chloride 93 L (98-107) mmol/L Carbon Dioxide 34 H (22-30) mmol/L BUN 54 H (7-17) mg/dL Creatinine 2.00 H (0.52-1.04) mg/dL POC Glucose (mg/dL) (75-99) mg/dL Iron (50-170) ug/dL TIBC (228-460) ug/dL Iron Saturation (12.00-45.00) Microbiology - Last 24 Hours (Table) 05/11/18 15:00 Blood Culture - Final Blood No Growth after 144 hours 05/14/18 10:05 Gram Stain - Final Bronchial Washings - Left Bronchial Washings Culture - Final Methicillin resist S. aureus Assessment and Plan Plan: Assessment: 1. Nonoliguric acute kidney injury secondary to ATN secondary to hemodynamic instability along with component of cardiorenal syndrome. Unclear as to what her baseline renal function is. Creatinine down to 2.0 today. No proteinuria noted on urinalysis. 2. Atrial fibrillation with RVR, maintained on IV amiodarone. 3. Systolic CHF with ejection fraction of 30-35%. 4. Hypotension, off vasopressors. 5. Volume overload. Improving. 6. Hypokalemia secondary to diuresis. Improved post replacement. 7. Hyponatremia secondary to acute kidney injury. Stable. 8. MRSA in bronchial washings maintained on IV abx per ID. Plan: Continue lasix 40 IV bid. Avoid nephrotoxic agents and hypotensive episodes. Continue to monitor renal function and urine output. Avoid vancomycin if possible. Dose to be adjusted per pharmacy - level 23.7 today.
[2018-05-18] MEDS ORDERED: PARENTERAL ELECTROLYTES 20 ML, MVI, ADULT NO.4 WITH VIT K 10 ML, TRACE (CONC-1ML/DOSE) ... IV ONE ×4 (12:00)
[2018-05-18 12:01] LABS: Glucose,Whole Blood 95 mg/dL (75-99)
--- NOTE | 2018-05-18 12:05 | P.PN ---
Subjective Patient's continue be on BiPAP and more awake than yesterday. She is following commands easily and trying to provide some information but mostly not comprehensible. She doesn't appear to be in distress and appears to be comfortable. Her oral intake is none and she is mostly dependent on the BiPAP. Chest x-ray from yesterday showed stable changes without obvious findings. Her blood pressure has improved and she has been off of the pressors. Her urine output has been better and creatinine establishes the range of 2. Low been stable in the range 7.5 with our studies consistent with iron deficiency component. Review of system patient was only able to answer no when asked about headache chest pain abdominal pain short or shortness of breath Objective - Vital Signs Vital signs: Vital Signs Temp 97.1 F L 05/18/18 08:30 Pulse 110 H 05/18/18 11:37 Resp 15 05/18/18 09:00 BP 88/53 05/14/18 22:00 Pulse Ox 92 L 05/18/18 09:00 Intake & Output 05/17/18 05/18/18 05/18/18 18:59 06:59 18:59 Intake Total 779.0 1328.3 65 Output Total 1140 1300 220 Balance -361.0 28.3 -155 Weight 112.2 kg 113.5 kg 113.5 kg Intake: IV 779.0 578.3 65 Dextrose 5%-0.45% NaCl 1, 240 200 50 000 ml @ 20 mls/hr IV . Q24H [facility] Rx#:[id number] Magnesium Sulfate-D5w Pmx 100 1 gm In Dextrose/Water 1 100ml.bag @ 100 mls/hr IVPB ONCE ONE Rx#: [id number] Potassium Chloride 10 meq 200 In Water For Injection 1 100ml.bag @ 100 mls/hr IVPB Q1H [facility] Rx#: [id number] Sodium Chloride 0.9% 1, 50 45 15 000 ml @ 20 mls/hr IV . Q24H [facility] Rx#:[id number] amiodarone 166.5 33.3 amiodarone bolus 100 cardizem 22.5 potassium chloride 200 Intake, IV Titration 750 Amount Amiodarone 450 mg In 250 Dextrose 5% in Water 250 ml @ 1 MG/MIN 33.33 mls/ hr IV .Q7H31M [facility] Rx#: [id number] Heparin Sod,Pork in 0.45% 500 NaCl 25,000 unit In 0.45 % NaCl 1 500ml.bag @ 9.8 UNITS/KG/HR 21.91 mls/hr IV .[id number] [facility] Rx#: [id number] Output: Urine 1140 1300 220 Other: Voiding Method Indwelling Catheter Indwelling Catheter Indwelling Catheter ABP, PAP, CO, CI - Last Documented Arterial Blood Pressure 116/72 - Exam General: No distress. awake and following commands on BiPAP; states that she is in the hospital but cannot recall year month or place HEENT: Head: conjunctiva clear with mild redness in the corner of the right eye, sclera non-icteric, EOM intact, PERRL Neck: Neck short and thick but no masses or stridor noted Heart: Irregularly irregular tachycardic Lungs: Diminished breath sounds bilaterally Limited exam Abdomen: Bowel sounds normal, no tenderness, organomegaly, masses, or hernia Extremities: 1+ edema bilaterally, much better, No , cyanosis or varicosities Musculoskeletal: No peripheral joint swelling, pain, erythema. No clubbing Neurologic: CN 2-12 normal. Moves both legs and feet and there is no clonus and DTRs are diminished patellar, able to lift both arms and squeeze with both hands no asterixis to the best able examination under the circumstances. - Labs CBC & Chem 7: 05/18/18 04:10 05/18/18 04:10 Labs: Abnormal Lab Results - Last 24 Hours (Table) 05/18/18 05/18/18 05/18/18 Range/Units 04:10 04:10 04:10 WBC 17.4 H (3.8-10.6) k/uL RBC 2.89 L (3.80-5.40) m/uL Hgb 7.4 L (11.4-16.0) gm/dL Hct 24.6 L (34.0-46.0) % MCHC 29.9 L (31.0-37.0) g/dL RDW 18.7 H (11.5-15.5) % APTT 44.6 H (22.0-30.0) sec Sodium 134 L (137-145) mmol/L Chloride 93 L (98-107) mmol/L Carbon Dioxide 34 H (22-30) mmol/L BUN 54 H (7-17) mg/dL Creatinine 2.00 H (0.52-1.04) mg/dL 05/18/18 Range/Units 11:00 WBC (3.8-10.6) k/uL RBC (3.80-5.40) m/uL Hgb (11.4-16.0) gm/dL Hct (34.0-46.0) % MCHC (31.0-37.0) g/dL RDW (11.5-15.5) % APTT 52.7 H (22.0-30.0) sec Sodium (137-145) mmol/L Chloride (98-107) mmol/L Carbon Dioxide (22-30) mmol/L BUN (7-17) mg/dL Creatinine (0.52-1.04) mg/dL Microbiology - Last 24 Hours (Table) 05/11/18 15:00 Blood Culture - Final Blood No Growth after 144 hours 05/14/18 10:05 Gram Stain - Final Bronchial Washings - Left Bronchial Washings Culture - Final Methicillin resist S. aureus Assessment and Plan Plan: 1. Acute on chronic hypoxic respiratory failure, clinically due to pulmonary edema due to acute systolic CHF exacerbation Extubated and maintained on BiPAP Diuretics adjusted as per nephrology 2. A. fib with RVR amiodarone and heparin drip 3. Pneumonia, healthcare associated Bronchoalveolar lavage with MRSA ID following Currently on aztreonam and vancomycin 3. Chronic hypercarbic respiratory failure BiPAP dependent due to COPD and obesity hypoventilation syndrome with history of smoking Mild respiratory acidosis, maintain on BiPAP which is usual for her 4. CKD stage III acute [facility] Creatinine has been stable Nephrology following 5. Anemia, normocytic No obvious signs of bleeding Likely related to anemia of chronic disease and acute illness plus iron deficiency Consider iron supplementation 6. Subacute diarrhea c dif negative 7. Acute on chronic debility bed ridden state, decubs, low albumin, protein calorie malnutrition, failure to thrive Overall, poor prognosis Plan for subacute rehab or LTAC Nutrition consult for nutrition options Anticipated discharge, few days Time with Patient: Greater than 30
--- NOTE | 2018-05-18 13:34 | PN ---
PROGRESS NOTE This patient was admitted with acute respiratory failure. Patient is being treated for pneumonia as well as heart failure. The patient is unable to take any oral medications. The patient is on IV amiodarone drip to control the rate and her heart rate is between 100 to 110. Blood pressure is 102/65 mmHg. First and second heart sounds are normal. Lung examination reveals bilateral few scattered wheezes. The patient's creatinine remains about 2.0. We will continue the patient on current dose of IV amiodarone as well as the Lasix. MMODL / IJN: [id number] /
[2018-05-18] MEDS: FAT EMULSION 20% 250 ML IV SCH (15:10)
[2018-05-18 16:22] LABS: Glucose,Whole Blood 117 mg/dL (75-99)
[2018-05-18] MEDS: HEPARIN SOD,PORK IN 0.45% NACL 25,000 UNIT in 0.45% NACL 1 500ML.BAG IV SCH (16:29)
[2018-05-18] MEDS ORDERED: VANCOMYCIN 1,500 MG in SODIUM CHLORIDE 0.9% 250 ML IVPB ONE (21:00)
[2018-05-18 21:32] LABS: Glucose,Whole Blood 145 mg/dL (75-99)
--- NOTE | 2018-05-18 23:15 | P.PN ---
Subjective Progress Note Date: 05/18/18 This is a 67-year-old morbidly obese female that came into the emergency center yesterday with shortness of breath and lethargy. Patient apparently has been bedbound for the past 3 weeks due to shortness of breath. Patient has not been eating very much and also had diarrhea. She was treated outpatient with deficit and completed the course and was then placed on antidiarrheal agent. She was admitted 2 months ago at [facility] for heart failure. She required intubation in the emergency center. She was also found to have atrial fibrillation with RVR is currently on amiodarone drip. Cardiology is following. Nephrology is also following for acute kidney injury with BUN 44 and creatinine 2.59. Patient presented with leukocytosis but afebrile. Troponins were mildly elevated at 0.046, 0.049, 0.047. Albumin 2.6, TSH 1.550. C. difficile toxin was negative. Urinalysis was cloudy, leukoesterase large, WBC 33 and bacteria rare. Blood issuing no growth at 24 hours and urine culture is in progress. Patient is currently on norepinephrine, Lasix drip, amiodarone drip, heparin drip and sedation. He guarding antibiotics patient is on Azactam and vancomycin. Initial x-ray shows mild cardiomegaly and interstitial prominence. Correlate for heart failure and mild pulmonary vascular congestion. Small to moderate left and trace left pleural effusions with adjacent atelectasis and/or consolidation. Repeat chest x-ray this morning reveals improved aeration of the right upper lung. Haziness of the right hemidiaphragm likely represents a new trace right pleural effusion. Persistent retrocardiac obesity is favored to represent a small pleural effusion and left basilar atelectasis. Overall stable lines and tubes. Echocardiogram reveals EF of 3035%, moderate concentric left ventricular hypertrophy, elderly severely dilated, mild mitral regurgitation, moderate tricuspid regurgitation, moderate pulmonary hypertension. Regarding wounds, patient has stage II decubitus ulcer on the right buttocks, left hip and the shear-type injury to the right hip area there is mild cellulitis to the left pretibial area. Patient's bowel movements are currently soft. 05/14/2018 patient remains intubated sedated and mechanically ventilated but is now with a marked reduction in the amount of vasopressor therapy. Her sedation holiday earlier today was successful. However she had significant secretions on bronchoscopy was performed in large amounts of purulent secretions were suctioned. She is comfortable at this time. 05/15/2018. The patient is now extubated. We'll likely be on BiPAP overnight. Vasopressor therapy has been weaned and has almost completely been discontinued. 05/17/2018 patient extubated but remains BiPAP dependent. She is arousable but not highly interactive. Is complaining of some itchy skin other than this has no improvement. Patient remains extubated at 05/18/2018 but is BiPAP dependent however delivered oxygen level is now down to 24% and she is comfortable. Her lower extremity edema is improving. TPN is started no plans for tracheostomy or PEG tube Objective - Vital Signs Vital signs: Vital Signs Temp 97.2 F L 05/18/18 18:00 Pulse 131 H 05/18/18 19:36 Resp 18 05/18/18 19:00 BP 88/53 05/14/18 22:00 Pulse Ox 88 L 05/18/18 19:22 Intake & Output 05/18/18 05/18/18 05/19/18 06:59 18:59 06:59 Intake Total 1328.3 551.32 327.639 Output Total 1300 665 40 Balance 28.3 -113.68 287.639 Weight 113.5 kg 113.5 kg Intake: IV 578.3 551.32 84.33 Amiodarone 450 mg In 133.32 33.33 Dextrose 5% in Water 250 ml @ 1 MG/MIN 33.33 mls/ hr IV .Q7H31M [facility] Rx#: [id number] Cefepime 1 gm In Sodium 50 Chloride 0.9% 50 ml @ 100 mls/hr IVPB Q12HR [facility] Rx #:[id number] Dextrose 5%-0.45% NaCl 1, 200 155 000 ml @ 20 mls/hr IV . Q24H [facility] Rx#:[id number] Fat Emulsion 20% 250 ml @ 63 21 20.833 mls/hr IV DAILY@ 1200 [facility] Rx#:[id number] Magnesium Sulfate-D5w Pmx 100 1 gm In Dextrose/Water 1 100ml.bag @ 100 mls/hr IVPB ONCE ONE Rx#: [id number] Parenteral Electrolytes 90 30 20 ml Mvi, Adult No.4 with Vit K 10 ml Trace ( Conc-1Ml/Dose) 1 ml In Amino Acid 5%-D15w 1,000 ml @ 30 mls/hr IV .Q24H [facility] Rx#:[id number] Potassium Chloride 10 meq 200 In Water For Injection 1 100ml.bag @ 100 mls/hr IVPB Q1H [facility] Rx#: [id number] Sodium Chloride 0.9% 1, 45 60 000 ml @ 20 mls/hr IV . Q24H [facility] Rx#:[id number] amiodarone 33.3 Intake, IV Titration 750 243.309 Amount Amiodarone 450 mg In 250 Dextrose 5% in Water 250 ml @ 1 MG/MIN 33.33 mls/ hr IV .Q7H31M [facility] Rx#: [id number] Amiodarone 450 mg In 243.309 Dextrose 5% in Water 250 ml @ 1 MG/MIN 33.33 mls/ hr IV .Q7H31M [facility] Rx#: [id number] Heparin Sod,Pork in 0.45% 500 NaCl 25,000 unit In 0.45 % NaCl 1 500ml.bag @ 9.8 UNITS/KG/HR 21.91 mls/hr IV .[id number] [facility] Rx#: [id number] Output: Urine 1300 665 40 Other: Voiding Method Indwelling Catheter Indwelling Catheter ABP, PAP, CO, CI - Last Documented Arterial Blood Pressure 105/67 - Exam Gen: This is a morbidly obese 67-year-old female. She is now extubated and able to follow simple commands She appears to be comfortable with the BiPAP in place. HEENT: Head is atraumatic, normocephalic. Pupils equal, round. Sclerae is anicteric. Conjunctiva slightly pale. Mucous members of the mouth are dry. Oral gastric tube and ET tube in place. NECK: Supple. No JVD. No lymphadenopathy. No thyromegaly. LUNGS: Diminished bilaterally. No intercostal retractions. HEART: Irregularly irregular rate and rhythm. No murmur. ABDOMEN: Currently obese. Soft. Bowel sounds are present. No masses. No tenderness. No significant redness under her abdominal fold or breast. InterDry and nystatin powder in place. EXTREMITIES: Jared bilateral pedal edema. Waffle-type boots in place. There is erythema to the left pretibial area. NEUROLOGICAL: She is extubated and no longer sedated. Seems to be comfortable. Itching improved - Labs CBC & Chem 7: 05/18/18 04:10 05/18/18 04:10 Labs: Abnormal Lab Results - Last 24 Hours (Table) 05/18/18 05/18/18 05/18/18 Range/Units 04:10 04:10 04:10 WBC 17.4 H (3.8-10.6) k/uL RBC 2.89 L (3.80-5.40) m/uL Hgb 7.4 L (11.4-16.0) gm/dL Hct 24.6 L (34.0-46.0) % MCHC 29.9 L (31.0-37.0) g/dL RDW 18.7 H (11.5-15.5) % APTT 44.6 H (22.0-30.0) sec Sodium 134 L (137-145) mmol/L Chloride 93 L (98-107) mmol/L Carbon Dioxide 34 H (22-30) mmol/L BUN 54 H (7-17) mg/dL Creatinine 2.00 H (0.52-1.04) mg/dL POC Glucose (mg/dL) (75-99) mg/dL 05/18/18 05/18/18 05/18/18 Range/Units 11:00 16:20 21:30 WBC (3.8-10.6) k/uL RBC (3.80-5.40) m/uL Hgb (11.4-16.0) gm/dL Hct (34.0-46.0) % MCHC (31.0-37.0) g/dL RDW (11.5-15.5) % APTT 52.7 H (22.0-30.0) sec Sodium (137-145) mmol/L Chloride (98-107) mmol/L Carbon Dioxide (22-30) mmol/L BUN (7-17) mg/dL Creatinine (0.52-1.04) mg/dL POC Glucose (mg/dL) 117 H 145 H (75-99) mg/dL Microbiology 05/11/18 15:00 Blood Blood Culture - Final No Growth after 144 hours 05/14/18 10:05 Bronchial Washings - Left Gram Stain - Final 05/14/18 10:05 Bronchial Washings - Left Bronchial Washings Culture - Final Methicillin resist S. aureus 05/14/18 10:05 Bronchial Washings - Left Acid Fast Bacilli Smear - Final 05/14/18 10:05 Bronchial Washings - Left Acid Fast Bacilli Culture - Preliminary 05/14/18 10:05 Bronchial Washings - Left Fungal Culture - Preliminary 05/11/18 23:45 Urine,Catheterized Urine Culture - Final Assessment and Plan (1) Acute respiratory failure Current Visit: Yes Status: Acute Code(s): J96.00 - ACUTE RESPIRATORY FAILURE , UNSP W HYPOXIA OR HYPERCAPNIA SNOMED Code(s): 30177532 (2) COPD (chronic obstructive pulmonary disease) Current Visit: Yes Status: Acute Code(s): J44.9 - CHRONIC OBSTRUCTIVE PULMONARY DISEASE, UNSPECIFIED SNOMED Code(s): 50806783 (3) Pressure ulcer of buttock Narrative/Plan: 67-year-old presents to Hospital with respiratory failure she is now extubated and is showing improvement. The Mepilex dressing is applied to the coccyx wound. The patient's bronchoscopy reveals evidence of staph and antimicrobial therapy is being utilized with Azactam and vancomycin pending further data. She does seem to be improving but appears she will need to be on BiPAP overnight which is unusual for her at home. She does appear to have a poor prognosis. 05/17/2018 patient is extubated but is requiring ongoing BiPAP therapy due to her ongoing respiratory difficulties, she is only on 40% FiO2 but desaturates rapidly when the positive pressure ventilation is removed. Pulmonary critical care is working with the family as to overall plan. Because of the current status she is not able to eat pretty because she is so short of breath and secondly did not pass a bedside swallow test. Her prognosis is poor. MRSA pneumonia and has been found continue vancomycin at this time, cefepime will be discontinued in the morning if no further positive cultures are found. 05/18/2018 patient remains extubated but BiPAP dependent but is on 24% FiO2. Patient is comfortable and there are plans for TPN but no plans for tracheostomy or PEG tube. We'll discontinue cefepime since only MRSA has been grown from her sputum with MRSA pneumonia as the etiology of her current sepsis and respiratory failure. Current Visit: Yes Status: Acute Code(s): L89.309 - PRESSURE ULCER OF UNSPECIFIED BUTTOCK, UNSPECIFIED STAGE SNOMED Code(s): 319325165
[2018-05-19] LABS: Glucose,Whole Blood 95 mg/dL (75-99)
[2018-05-19] MEDS: IPRATROPIUM-ALBUTEROL 3 ML NEB INHALATION SCH ×8 (00:02→23:46)
[2018-05-19] MEDS: INSULIN ASPART 100 UNIT/ML 1 ML 10 ML VIAL SQ SCH ×6 (02:48→20:25)
[2018-05-19 05:23] LABS: Anisocytosis Slight; HCT 24.9 % (34.0-46.0); HGB 7.5 gm/dL (11.4-16.0); Hypochromasia Marked; MCH 25.4 pg (25.0-35.0); MCV 84.4 fL (80.0-100.0); Mean Platelet Volume 8.8; Platelet Count 309 k/uL (150-450); Poikilocytosis Slight; RBC 2.95 m/uL (3.80-5.40); RDW 18.9 % (11.5-15.5); WBC 17.6 k/uL (3.8-10.6)
[2018-05-19 05:37] LABS: Ionized Calcium 4.6 mg/dL (4.5-5.3)
[2018-05-19 05:51] LABS: Calcium 8.8 mg/dL (8.4-10.2); Magnesium 1.9 mg/dL (1.6-2.3); Phosphorus 3.2 mg/dL (2.5-4.5); Potassium 3.4 mmol/L (3.5-5.1)
[2018-05-19] MEDS: AMIODARONE 450 MG in DEXTROSE 5% IN WATER 250 ML IV SCH ×4 (06:50→14:30)
--- NOTE | 2018-05-19 06:50 | P.PN ---
Subjective Progress Note Date: 05/19/18 Principal diagnosis: Respiratory failure Progress note dated 05/19/2018 67-year-old female with a history of acute on chronic hypoxemic and hypercapnic respiratory failure. The patient was extubated a couple days ago to BiPAP therapy and has been pretty much BiPAP dependent since. This morning, we will switch her to nasal O2 and ventilatory mask with the idea of maintaining saturations in the high 80s and low 90s. She also has a history of hypertension. Was on pressors but they have been weaned off. In addition, the patient was thought to have a left lung pneumonia, heart failure, pulmonary hypertension, stage III chronic kidney disease, stage III chronic decubitus ulcerations, morbid obesity, chronic atrial fibrillation, CAD, C. difficile colitis, hypertension, DJD, COPD, and mental status changes. Currently, the patient was on BiPAP with an IPAP of 14 and EPAP of 5 and 24% oxygen. IVs included TPN at 30 mL an hour heparin via weightbase protocol and amiodarone at 1 mg per hour. She still appears somewhat lethargic and somnolent but is slightly better than she was yesterday. Still pretty much has a blank stare on her face. She is still in atrial fibrillation. Objective - Vital Signs Vital signs: Vital Signs Temp 97.3 F L 05/19/18 00:00 Pulse 106 H 05/19/18 03:55 Resp 13 05/19/18 03:00 BP 88/53 05/14/18 22:00 Pulse Ox 91 L 05/19/18 03:00 Intake & Output 05/18/18 05/18/18 05/19/18 06:59 18:59 06:59 Intake Total 1328.3 551.32 961.639 Output Total 1300 665 695 Balance 28.3 -113.68 266.639 Weight 113.5 kg 113.5 kg Intake: IV 578.3 551.32 468.33 Amiodarone 450 mg In 133.32 33.33 Dextrose 5% in Water 250 ml @ 1 MG/MIN 33.33 mls/ hr IV .Q7H31M [facility] Rx#: [id number] Cefepime 1 gm In Sodium 50 Chloride 0.9% 50 ml @ 100 mls/hr IVPB Q12HR [facility] Rx #:[id number] Dextrose 5%-0.45% NaCl 1, 200 155 000 ml @ 20 mls/hr IV . Q24H [facility] Rx#:[id number] Fat Emulsion 20% 250 ml @ 63 165 20.833 mls/hr IV DAILY@ 1200 [facility] Rx#:[id number] Magnesium Sulfate-D5w Pmx 100 1 gm In Dextrose/Water 1 100ml.bag @ 100 mls/hr IVPB [facility]CE [facility] Rx#: [id number] Parenteral Electrolytes 90 270 20 ml Mvi, Adult No.4 with Vit K 10 ml Trace ( Conc-1Ml/Dose) 1 ml In Amino Acid 5%-D15w 1,000 ml @ 30 mls/hr IV .Q24H [facility] Rx#:[id number] Potassium Chloride 10 meq 200 In Water For Injection 1 100ml.bag @ 100 mls/hr IVPB Q1H [facility] Rx#: [id number] Sodium Chloride 0.9% 1, 45 60 000 ml @ 20 mls/hr IV . Q24H [facility] Rx#:[id number] amiodarone 33.3 Intake, IV Titration 750 493.309 Amount Amiodarone 450 mg In 250 Dextrose 5% in Water 250 ml @ 1 MG/MIN 33.33 mls/ hr IV .Q7H31M [facility] Rx#: [id number] Amiodarone 450 mg In 243.309 Dextrose 5% in Water 250 ml @ 1 MG/MIN 33.33 mls/ hr IV .Q7H31M [facility] Rx#: [id number] Heparin Sod,Pork in 0.45% 500 NaCl 25,000 unit In 0.45 % NaCl 1 500ml.bag @ 9.8 UNITS/KG/HR 21.91 mls/hr IV .[id number] [facility] Rx#: [id number] Vancomycin 1,500 mg In 250 Sodium Chloride 0.9% 250 ml @ 125 mls/hr IVPB [facility]CE [facility] Rx#:[id number] Output: Urine 1300 665 695 Other: Voiding Method Indwelling Catheter Indwelling Catheter Indwelling Catheter ABP, PAP, CO, CI - Last Documented Arterial Blood Pressure 115/68 - Exam No acute distress, lethargic and somnolent, is unable to answer questions in a coherent fashion. BiPAP mask in place.. HEENT examination is grossly unremarkable. Mucous membranes are moist. No oral lesions. Neck supple. Full range of motion. No adenopathy thyromegaly or neck vein distention. Cardiovascular examination reveals a irregular rhythm and rate. S1-S2 normal. No S3 or S4. Heart sounds distant. Lungs reveal bilateral coarse rhonchi. Some bibasilar crackles noted. Breath sounds equal bilaterally. No wheezes appreciated. Abdomen soft bowel sounds are heard. No masses or tenderness. Extremities are intact. Bilateral lower extremity edema noted. It is pitting. No cyanosis or clubbing.. Skin is without rash or lesion. Neurologic examination is difficult to assess. - Labs CBC & Chem 7: 05/19/18 05:15 05/19/18 05:15 Labs: Abnormal Lab Results - Last 24 Hours (Table) 05/18/18 05/18/18 05/18/18 Range/Units 11:00 16:20 21:30 WBC (3.8-10.6) k/uL RBC (3.80-5.40) m/uL Hgb (11.4-16.0) gm/dL Hct (34.0-46.0) % MCHC (31.0-37.0) g/dL RDW (11.5-15.5) % APTT 52.7 H (22.0-30.0) sec Sodium (137-145) mmol/L Potassium (3.5-5.1) mmol/L Chloride (98-107) mmol/L Carbon Dioxide (22-30) mmol/L BUN (7-17) mg/dL Creatinine (0.52-1.04) mg/dL Glucose (74-99) mg/dL POC Glucose (mg/dL) 117 H 145 H (75-99) mg/dL 05/19/18 05/19/18 05/19/18 Range/Units 04:46 05:15 05:15 WBC 17.6 H (3.8-10.6) k/uL RBC 2.95 L (3.80-5.40) m/uL Hgb 7.5 L (11.4-16.0) gm/dL Hct 24.9 L (34.0-46.0) % MCHC 30.0 L (31.0-37.0) g/dL RDW 18.9 H (11.5-15.5) % APTT 60.2 H (22.0-30.0) sec Sodium 134 L (137-145) mmol/L Potassium 3.4 L (3.5-5.1) mmol/L Chloride 94 L (98-107) mmol/L Carbon Dioxide 35 H (22-30) mmol/L BUN 48 H (7-17) mg/dL Creatinine 1.80 H (0.52-1.04) mg/dL Glucose 118 H (74-99) mg/dL POC Glucose (mg/dL) (75-99) mg/dL Assessment and Plan Assessment: Assessment Acute on chronic hypoxemic and hypercapnic respiratory failure, status post intubation with mechanical ventilation and extubation to BiPAP therapy Mental status changes, which may relate to ICU delirium and/or hypercapnic respiratory failure Methicillin-resistant staph aureus Pneumonia, status post BAL with evidence of staphylococcal species. Patient currently on antibiotic therapy Hypotension, resolved, patient previously on pressors Systolic heart failure with an ejection fraction of 30-35% Moderate pulmonary hypertension Stage III chronic kidney disease Stage III chronic decubitus ulcerations Morbid obesity Chronic atrial fibrillation CAD C. difficile colitis Essential hypertension DJD COPD Rule out pickwickian syndrome Plan: Plan dated 05/19/2018 I will attempt to wean the patient off the BiPAP and onto nasal O2 and/or a Venturi mask. We'll continue the antibiotics for the methicillin-resistant staph aureus pneumonia. The patient is currently being nourished with TPN at 30 mL an hour. She cannot take anything by mouth. She remains on IV heparin for her atrial fibrillation and amiodarone at 1 mg per hour. Chest x-ray will be reviewed. Prognosis is poor. My nurse practitioner had a long talk with the family yesterday. I will discuss the case with the hospital doctor today. Additional recommendations and suggestions are forthcoming. Critical-care time 34 minutes Time with Patient: Greater than 30
[2018-05-19] MEDS: POTASSIUM CHLORIDE 20 MEQ in WATER FOR INJECTION 1 100ML.BAG IVPB SCH ×2 (06:51→09:03)
--- NOTE | 2018-05-19 09:57 | P.PN ---
Subjective Patient is seen in follow-up for acute kidney injury. Unclear as to what her baseline renal function is. Creatinine down to 1.8 today. Patient presented with weakness and was noted to be due to be in atrial fibrillation with RVR. Currently on amiodarone drip. She remains off all vasopressors now. She is noted to have systolic CHF with ejection fraction of 30-35%. She was extubated on May 15. Currently on BiPAP. She has failed swallow eval. TPN started . Vital signs are stable. General: The patient appeared well nourished and normally developed. HEENT: Head exam is unremarkable. Neck is without jugular venous distension. LUNGS: Breath sounds decreased. HEART: Irregular rate and rhythm. ABDOMEN: Abdominal exam reveals normal bowel sounds. Non-tender and non- distended. No evidence of peritonitis. EXTREMITITES: No clubbing, cyanosis, or edema. Objective - Vital Signs Vital signs: Vital Signs Temp 97.4 F L 05/19/18 04:00 Pulse 120 H 05/19/18 08:28 Resp 22 05/19/18 08:00 BP 88/53 05/14/18 22:00 Pulse Ox 90 L 05/19/18 08:00 Intake & Output 05/18/18 05/19/18 05/19/18 18:59 06:59 18:59 Intake Total 551.32 1331.639 Output Total 665 830 Balance -113.68 501.639 Weight 113.5 kg 115.1 kg Intake: IV 551.32 588.33 Amiodarone 450 mg In 133.32 33.33 Dextrose 5% in Water 250 ml @ 1 MG/MIN 33.33 mls/ hr IV .Q7H31M [facility] Rx#: [id number] Cefepime 1 gm In Sodium 50 Chloride 0.9% 50 ml @ 100 mls/hr IVPB Q12HR [facility] Rx #:[id number] Dextrose 5%-0.45% NaCl 1, 155 0 000 ml @ 20 mls/hr IV . Q24H [facility] Rx#:[id number] Fat Emulsion 20% 250 ml @ 63 165 20.833 mls/hr IV DAILY@ 1200 [facility] Rx#:[id number] Parenteral Electrolytes 90 390 20 ml Mvi, Adult No.4 with Vit K 10 ml Trace ( Conc-1Ml/Dose) 1 ml In Amino Acid 5%-D15w 1,000 ml @ 30 mls/hr IV .Q24H [facility] Rx#:[id number] Sodium Chloride 0.9% 1, 60 000 ml @ 20 mls/hr IV . Q24H [facility] Rx#:[id number] Intake, IV Titration 743.309 Amount Amiodarone 450 mg In 493.309 Dextrose 5% in Water 250 ml @ 1 MG/MIN 33.33 mls/ hr IV .Q7H31M [facility] Rx#: [id number] Vancomycin 1,500 mg In 250 Sodium Chloride 0.9% 250 ml @ 125 mls/hr IVPB ONCE [facility] Rx#:[id number] Output: Urine 665 830 Other: Voiding Method Indwelling Catheter Indwelling Catheter Indwelling Catheter ABP, PAP, CO, CI - Last Documented Arterial Blood Pressure 146/88 - Labs CBC & Chem 7: 05/19/18 05:15 05/19/18 05:15 Labs: Abnormal Lab Results - Last 24 Hours (Table) 05/18/18 05/18/18 05/18/18 Range/Units 11:00 16:20 21:30 WBC (3.8-10.6) k/uL RBC (3.80-5.40) m/uL Hgb (11.4-16.0) gm/dL Hct (34.0-46.0) % MCHC (31.0-37.0) g/dL RDW (11.5-15.5) % APTT 52.7 H (22.0-30.0) sec Sodium (137-145) mmol/L Potassium (3.5-5.1) mmol/L Chloride (98-107) mmol/L Carbon Dioxide (22-30) mmol/L BUN (7-17) mg/dL Creatinine (0.52-1.04) mg/dL Glucose (74-99) mg/dL POC Glucose (mg/dL) 117 H 145 H (75-99) mg/dL 05/19/18 05/19/18 05/19/18 Range/Units 04:46 05:15 05:15 WBC 17.6 H (3.8-10.6) k/uL RBC 2.95 L (3.80-5.40) m/uL Hgb 7.5 L (11.4-16.0) gm/dL Hct 24.9 L (34.0-46.0) % MCHC 30.0 L (31.0-37.0) g/dL RDW 18.9 H (11.5-15.5) % APTT 60.2 H (22.0-30.0) sec Sodium 134 L (137-145) mmol/L Potassium 3.4 L (3.5-5.1) mmol/L Chloride 94 L (98-107) mmol/L Carbon Dioxide 35 H (22-30) mmol/L BUN 48 H (7-17) mg/dL Creatinine 1.80 H (0.52-1.04) mg/dL Glucose 118 H (74-99) mg/dL POC Glucose (mg/dL) (75-99) mg/dL Assessment and Plan Plan: Assessment: 1. Nonoliguric acute kidney injury secondary to ATN secondary to hemodynamic instability along with component of cardiorenal syndrome. Unclear as to what her baseline renal function is. Creatinine down to 1.8 today. No proteinuria noted on urinalysis. 2. Atrial fibrillation with RVR, maintained on IV amiodarone. 3. Systolic CHF with ejection fraction of 30-35%. 4. Hypotension, off vasopressors. 5. Volume overload. Improving. 6. Hypokalemia secondary to diuresis. Magnesium replete. 7. Hyponatremia secondary to acute kidney injury. Stable. 8. MRSA in bronchial washings maintained on IV abx per ID. Plan: Continue lasix 40 IV bid. Avoid nephrotoxic agents and hypotensive episodes. Continue to monitor renal function and urine output. Avoid vancomycin if possible. Dose to be adjusted per pharmacy - level 23.7 . Patient started on TPN 05/18. Replace potassium. 40 mEq today.
[2018-05-19] MEDS: MAGNESIUM SULFATE-D5W PMX 1 GM in DEXTROSE/WATER 1 100ML.BAG IVPB SCH ×2 (10:13→12:52)
[2018-05-19] MEDS: PANTOPRAZOLE 40 MG/10 ML VIAL IV SCH (10:14)
[2018-05-19] MEDS: FUROSEMIDE 10 MG/ML 4 ML VIAL IV SCH ×2 (10:14→20:23)
[2018-05-19] MEDS: ASPIRIN 325 MG TAB PO SCH (10:15)
[2018-05-19] MEDS: SODIUM FERRIC GLUCONAT-SUCROSE 125 MG in SODIUM CHLORIDE 0.9% 100 ML IVPB SCH (10:41)
[2018-05-19] MEDS: HEPARIN SOD,PORK IN 0.45% NACL 25,000 UNIT in 0.45% NACL 1 500ML.BAG IV SCH (10:45)
--- NOTE | 2018-05-19 10:59 | P.PN ---
Subjective Today patient seems to be less somnolent and been more interactive and she is able to follow commands much appropriately and even answer some of the simple questions. She still remains in the BiPAP and does not tolerate switching off BiPAP and trying oxygen via nasal cannula high flow. She appears comfortable and denies any headache chest pain and abdominal pain. Her only complaint is that she feels short of breath. Otherwise no any other complaints No any other new or acute events overnight. Blood work this morning showed stable anemia further improving creatinine and stable electrolytes with only mild hypokalemia at 3.4. Blood pressure has improved in one tenderness she is mildly tachycardic with A. fib still. She continues on vancomycin and cefepime have been discontinued. Blood cultures remain no growth to date. REVIEW OF SYSTEMS: This is very limited due to patient's limited ability to provide much of the history but overall as mentioned in above subjective evaluation Objective - Vital Signs Vital signs: Vital Signs Temp 97.4 F L 05/19/18 04:00 Pulse 120 H 05/19/18 08:28 Resp 22 05/19/18 08:00 BP 88/53 05/14/18 22:00 Pulse Ox 90 L 05/19/18 08:00 Intake & Output 05/18/18 05/19/18 05/19/18 18:59 06:59 18:59 Intake Total 551.32 1331.639 481.875 Output Total 665 830 Balance -113.68 501.639 481.875 Weight 113.5 kg 115.1 kg Intake: IV 551.32 588.33 Amiodarone 450 mg In 133.32 33.33 Dextrose 5% in Water 250 ml @ 1 MG/MIN 33.33 mls/ hr IV .Q7H31M [facility] Rx#: [id number] Cefepime 1 gm In Sodium 50 Chloride 0.9% 50 ml @ 100 mls/hr IVPB Q12HR [facility] Rx #:[id number] Dextrose 5%-0.45% NaCl 1, 155 0 000 ml @ 20 mls/hr IV . Q24H [facility] Rx#:[id number] Fat Emulsion 20% 250 ml @ 63 165 20.833 mls/hr IV DAILY@ 1200 [facility] Rx#:[id number] Parenteral Electrolytes 90 390 20 ml Mvi, Adult No.4 with Vit K 10 ml Trace ( Conc-1Ml/Dose) 1 ml In Amino Acid 5%-D15w 1,000 ml @ 30 mls/hr IV .Q24H [facility] Rx#:[id number] Sodium Chloride 0.9% 1, 60 000 ml @ 20 mls/hr IV . Q24H [facility] Rx#:[id number] Intake, IV Titration 743.309 481.875 Amount Amiodarone 450 mg In 493.309 Dextrose 5% in Water 250 ml @ 1 MG/MIN 33.33 mls/ hr IV .Q7H31M [facility] Rx#: [id number] Heparin Sod,Pork in 0.45% 481.875 NaCl 25,000 unit In 0.45 % NaCl 1 500ml.bag @ 9.8 UNITS/KG/HR 21.91 mls/hr IV .[id number] [facility] Rx#: [id number] Vancomycin 1,500 mg In 250 Sodium Chloride 0.9% 250 ml @ 125 mls/hr IVPB ONCE [facility] Rx#:[id number] Output: Urine 665 830 Other: Voiding Method Indwelling Catheter Indwelling Catheter Indwelling Catheter ABP, PAP, CO, CI - Last Documented Arterial Blood Pressure 146/88 - Exam General: No distress. awake and following commands on BiPAP; states that she is in the hospital but cannot recall year month or place. Much more awake and alert. HEENT: Head: conjunctiva clear with mild redness in the corner of the right eye, sclera non-icteric, EOM intact, PERRL Neck: Neck short and thick but no masses or stridor noted Heart: Irregularly irregular tachycardic Lungs: Diminished breath sounds bilaterally Limited exam Abdomen: Bowel sounds normal, no tenderness, organomegaly, masses, or hernia Extremities: 1+ edema bilaterally, much better, No , cyanosis or varicosities, Musculoskeletal: No peripheral joint swelling, pain, erythema. No clubbing Neurologic: Extraocular movements are intact pupils are round reactive to light eyes are in midline there's no facial asymmetry she does report that she feels a sensation and touch over her face. Moves both legs and feet and there is no clonus and DTRs are diminished patellar, able to lift both arms and squeeze with both hands no asterixis - Labs CBC & Chem 7: 05/19/18 05:15 05/19/18 05:15 Labs: Abnormal Lab Results - Last 24 Hours (Table) 05/18/18 05/18/18 05/18/18 Range/Units 11:00 16:20 21:30 WBC (3.8-10.6) k/uL RBC (3.80-5.40) m/uL Hgb (11.4-16.0) gm/dL Hct (34.0-46.0) % MCHC (31.0-37.0) g/dL RDW (11.5-15.5) % APTT 52.7 H (22.0-30.0) sec Sodium (137-145) mmol/L Potassium (3.5-5.1) mmol/L Chloride (98-107) mmol/L Carbon Dioxide (22-30) mmol/L BUN (7-17) mg/dL Creatinine (0.52-1.04) mg/dL Glucose (74-99) mg/dL POC Glucose (mg/dL) 117 H 145 H (75-99) mg/dL 05/19/18 05/19/18 05/19/18 Range/Units 04:46 05:15 05:15 WBC 17.6 H (3.8-10.6) k/uL RBC 2.95 L (3.80-5.40) m/uL Hgb 7.5 L (11.4-16.0) gm/dL Hct 24.9 L (34.0-46.0) % MCHC 30.0 L (31.0-37.0) g/dL RDW 18.9 H (11.5-15.5) % APTT 60.2 H (22.0-30.0) sec Sodium 134 L (137-145) mmol/L Potassium 3.4 L (3.5-5.1) mmol/L Chloride 94 L (98-107) mmol/L Carbon Dioxide 35 H (22-30) mmol/L BUN 48 H (7-17) mg/dL Creatinine 1.80 H (0.52-1.04) mg/dL Glucose 118 H (74-99) mg/dL POC Glucose (mg/dL) (75-99) mg/dL Assessment and Plan Plan: 1. Acute on chronic hypoxic respiratory failure, clinically due to pulmonary edema due to acute systolic CHF exacerbation and pneumonia Maintained on BiPAP did not tolerate weaning off the BiPAP Continue diuresis Antibiotics per infectious disease, vancomycin Blood cultures are negative 2. A. fib with RVR amiodarone and heparin drip 3. Pneumonia, healthcare associated Bronchoalveolar lavage with MRSA ID following Currently on vancomycin 3. Chronic hypercarbic respiratory failure BiPAP dependent due to COPD and obesity hypoventilation syndrome with history of smoking Maintain the BiPAP 4. CKD stage III acute [facility] Creatinine has been improving, 1.9 today good urine output Nephrology following 5. Anemia, normocytic Chronic No obvious signs of bleeding Likely related to anemia of chronic disease and acute illness plus iron deficiency Consider iron supplementation 6. Acute on chronic debility bed ridden state, decubs, low albumin, protein calorie malnutrition, failure to thrive Overall, poor prognosis Plan for subacute rehab or LTAC Nutrition consult: Started on TPN I met with patient's family her both daughters. We discussed overall plan of care and I updated them on was done so far. Time with Patient: Greater than 30
[2018-05-19 12:33] LABS: Glucose,Whole Blood 175 mg/dL (75-99)
[2018-05-19] MEDS: FAT EMULSION 20% 250 ML IV SCH (14:06)
[2018-05-19] MEDS: 1: PARENTERAL ELECTROLYTES 20 ML, MVI, ADULT NO.4 WITH VIT K 10 ML, TRACE (CONC-1ML/DOSE IV SCH ×4 (17:18)
[2018-05-19 17:23] LABS: Glucose,Whole Blood 129 mg/dL (75-99)
--- NOTE | 2018-05-19 19:49 | PN ---
PROGRESS NOTE SHAWANDA / OSITON: [id number] /
[2018-05-19 19:53] LABS: Glucose,Whole Blood 158 mg/dL (75-99)
[2018-05-19] MEDS ORDERED: ARTIFICIAL TEARS-HYPROMELLOSE DROPS 15 ML BTL BOTH EYES PRN (20:19)
[2018-05-20 00:07] LABS: Glucose,Whole Blood 135 mg/dL (75-99)
[2018-05-20] MEDS: INSULIN ASPART 100 UNIT/ML 1 ML 10 ML VIAL SQ SCH ×6 (00:51→19:48)
[2018-05-20 04:22] LABS: Glucose,Whole Blood 147 mg/dL (75-99)
[2018-05-20] MEDS: IPRATROPIUM-ALBUTEROL 3 ML NEB INHALATION SCH ×6 (04:31→23:09)
[2018-05-20 04:44] LABS: Anisocytosis Slight; HCT 25.8 % (34.0-46.0); HGB 7.7 gm/dL (11.4-16.0); Hypochromasia Marked; MCH 25.2 pg (25.0-35.0); Mean Platelet Volume 8.1; Platelet Count 337 k/uL (150-450); RBC 3.08 m/uL (3.80-5.40); RDW 18.9 % (11.5-15.5)
[2018-05-20 05:03] LABS: Magnesium 2.1 mg/dL (1.6-2.3); Phosphorus 2.8 mg/dL (2.5-4.5); Potassium 3.7 mmol/L (3.5-5.1)
[2018-05-20 05:08] LABS: Vancomycin,Random 23.7 ug/mL
[2018-05-20 05:30] LABS: Band Neutrophils % 4 %; Myelocytes % 6 %; Neutrophils % (M) 70 %; Nucleated Red Blood Cells 1 /100 WBC (0-0); Total Cells Counted 200
[2018-05-20 05:31] LABS: Lymphocytes # (M) 2.29 k/uL (1.0-4.8); Monocytes # (M) 1.72 k/uL (0-1.0); Myelocytes # (M) 1.15 k/uL (0); Polychromasia Present; WBC 19.1 k/uL (3.8-10.6)
[2018-05-20] MEDS: 1: PARENTERAL ELECTROLYTES 20 ML, MVI, ADULT NO.4 WITH VIT K 10 ML, TRACE (CONC-1ML/DOSE IV SCH ×12 (06:54→20:30)
[2018-05-20] MEDS: AMIODARONE 450 MG in DEXTROSE 5% IN WATER 250 ML IV SCH ×6 (06:55→22:15)
[2018-05-20] MEDS: POTASSIUM CHLORIDE 10 MEQ in WATER FOR INJECTION 1 100ML.BAG IVPB SCH ×2 (06:55→08:23)
--- NOTE | 2018-05-20 07:37 | P.PN ---
Subjective Progress Note Date: 05/20/18 Principal diagnosis: Respiratory failure Progress note dated 05/19/2018 67-year-old female with a history of acute on chronic hypoxemic and hypercapnic respiratory failure. The patient was extubated a couple days ago to BiPAP therapy and has been pretty much BiPAP dependent since. This morning, we will switch her to nasal O2 and ventilatory mask with the idea of maintaining saturations in the high 80s and low 90s. She also has a history of hypertension. Was on pressors but they have been weaned off. In addition, the patient was thought to have a left lung pneumonia, heart failure, pulmonary hypertension, stage III chronic kidney disease, stage III chronic decubitus ulcerations, morbid obesity, chronic atrial fibrillation, CAD, C. difficile colitis, hypertension, DJD, COPD, and mental status changes. Currently, the patient was on BiPAP with an IPAP of 14 and EPAP of 5 and 24% oxygen. IVs included TPN at 30 mL an hour heparin via weightbase protocol and amiodarone at 1 mg per hour. She still appears somewhat lethargic and somnolent but is slightly better than she was yesterday. Still pretty much has a blank stare on her face. She is still in atrial fibrillation. Progress note dated 05/20/2018 67-year-old female with a history of acute on chronic hypoxemic and hypercapnic respiratory failure. She was extubated a number of days ago and has been pretty much BiPAP dependent since. Currently, her BiPAP settings included a IPAP of 16 and EPAP of 5 with an FiO2 of 24%. She is also getting TPN at 30 mL an hour heparin via weightbase protocol and amiodarone a 0.5 mg/m for her chronic atrial fibrillation and rapid ventricular response. She seems a bit more awake and alert today. Her lower extremity edema is improved. She still in atrial fibrillation. Chest x-ray is consistent with diffuse bilateral infiltrates likely heart failure although pneumonia cannot be excluded. Bronchoscopy and washings from May 14 show methicillin-resistant staph aureus. White count 19.1, hemoglobin 7.7, Macrobid 25.8 and platelet count normal. PTT is 88.1. Sodium 132, potassium 3.7, chloride 92 and CO2 36. BUN and creatinine were 46 and 1.60. I would say since I started seeing her on Thursday, she is about the same or only minimally improved mostly from the mental status picture. She still has a long way to go and is chronically and critically ill at this point. Objective - Vital Signs Vital signs: Vital Signs Temp 96.8 F L 05/20/18 00:00 Pulse 115 H 05/20/18 05:30 Resp 13 05/20/18 05:30 BP 88/53 05/14/18 22:00 Pulse Ox 99 05/20/18 05:30 Intake & Output 05/19/18 05/20/18 05/20/18 18:59 06:59 18:59 Intake Total 5502.196 6738.461 Output Total 435 822 Balance 261.311 6215.461 Intake: IV 885 980 Cefepime 1 gm In Sodium 200 Chloride 0.9% 50 ml @ 100 mls/hr IVPB Q12HR [facility] Rx #:[id number] Fat Emulsion 20% 250 ml @ 105 210 20.833 mls/hr IV DAILY@ 1200 [facility] Rx#:[id number] Magnesium Sulfate-D5w Pmx 100 1 gm In Dextrose/Water 1 100ml.bag @ 100 mls/hr IVPB ONCE [facility] Rx#: [id number] Parenteral Electrolytes 380 770 20 ml Mvi, Adult No.4 with Vit K 10 ml Trace ( Conc-1Ml/Dose) 1 ml In Amino Acid 5%-D15w 1,000 ml @ 30 mls/hr IV .Q24H [facility] Rx#:[id number] Sodium Ferric Gluconat- 100 Sucrose 125 mg In Sodium Chloride 0.9% 100 ml @ 100 mls/hr IVPB DAILY [facility] Rx#:[id number] Intake, IV Titration 282.130 7774.461 Amount Amiodarone 450 mg In 250 Dextrose 5% in Water 250 ml @ 0.5 MG/MIN 16.66 mls /hr IV .Q15H1M [facility] Rx#: [id number] Heparin Sod,Pork in 0.45% 481.875 499.461 NaCl 25,000 unit In 0.45 % NaCl 1 500ml.bag @ 9.8 UNITS/KG/HR 21.91 mls/hr IV .[id number] [facility] Rx#: [id number] Parenteral Electrolytes 952 20 ml Mvi, Adult No.4 with Vit K 10 ml Trace ( Conc-1Ml/Dose) 1 ml In Amino Acid 5%-D15w 1,000 ml @ 70 mls/hr IV .BY DURATION [facility] Rx#: [id number] Output: Urine 435 822 Other: Voiding Method Indwelling Catheter Indwelling Catheter ABP, PAP, CO, CI - Last Documented Arterial Blood Pressure 104/68 - Exam No acute distress, lethargic and somnolent, is unable to answer questions in a coherent fashion. BiPAP mask in place. Seems a bit more awake today. HEENT examination is grossly unremarkable. Mucous membranes are moist. No oral lesions. Neck supple. Full range of motion. No adenopathy thyromegaly or neck vein distention. Cardiovascular examination reveals a irregular rhythm and rate. S1-S2 normal. No S3 or S4. Heart sounds distant. Lungs reveal bilateral coarse rhonchi. Some bibasilar crackles noted. Breath sounds equal bilaterally. No wheezes appreciated. Abdomen soft bowel sounds are heard. No masses or tenderness. Extremities are intact. Bilateral lower extremity edema noted. It is pitting. No cyanosis or clubbing.. Skin is without rash or lesion. Neurologic examination is difficult to assess. - Labs CBC & Chem 7: 05/20/18 04:23 05/20/18 04:23 Labs: Abnormal Lab Results - Last 24 Hours (Table) 05/19/18 05/19/18 05/19/18 Range/Units 12:31 17:20 19:50 WBC (3.8-10.6) k/uL RBC (3.80-5.40) m/uL Hgb (11.4-16.0) gm/dL Hct (34.0-46.0) % MCHC (31.0-37.0) g/dL RDW (11.5-15.5) % Neutrophils # (Manual) (1.3-7.7) k/uL Monocytes # (Manual) (0-1.0) k/uL Myelocytes # (Manual) (0) k/uL Nucleated RBCs (0-0) /100 WBC APTT (22.0-30.0) sec Sodium (137-145) mmol/L Chloride (98-107) mmol/L Carbon Dioxide (22-30) mmol/L BUN (7-17) mg/dL Creatinine (0.52-1.04) mg/dL Glucose (74-99) mg/dL POC Glucose (mg/dL) 175 H 129 H 158 H (75-99) mg/dL 05/20/18 05/20/18 05/20/18 Range/Units 00:05 04:20 04:23 WBC (3.8-10.6) k/uL RBC (3.80-5.40) m/uL Hgb (11.4-16.0) gm/dL Hct (34.0-46.0) % MCHC (31.0-37.0) g/dL RDW (11.5-15.5) % Neutrophils # (Manual) (1.3-7.7) k/uL Monocytes # (Manual) (0-1.0) k/uL Myelocytes # (Manual) (0) k/uL Nucleated RBCs (0-0) /100 WBC APTT (22.0-30.0) sec Sodium 132 L (137-145) mmol/L Chloride 92 L (98-107) mmol/L Carbon Dioxide 36 H (22-30) mmol/L BUN 46 H (7-17) mg/dL Creatinine 1.60 H (0.52-1.04) mg/dL Glucose 127 H (74-99) mg/dL POC Glucose (mg/dL) 135 H 147 H (75-99) mg/dL 05/20/18 05/20/18 Range/Units 04:23 04:23 WBC 19.1 H (3.8-10.6) k/uL RBC 3.08 L (3.80-5.40) m/uL Hgb 7.7 L (11.4-16.0) gm/dL Hct 25.8 L (34.0-46.0) % MCHC 30.0 L (31.0-37.0) g/dL RDW 18.9 H (11.5-15.5) % Neutrophils # (Manual) 14.10 H (1.3-7.7) k/uL Monocytes # (Manual) 1.72 H (0-1.0) k/uL Myelocytes # (Manual) 1.15 H (0) k/uL Nucleated RBCs 1 H (0-0) /100 WBC APTT 88.1 H (22.0-30.0) sec Sodium (137-145) mmol/L Chloride (98-107) mmol/L Carbon Dioxide (22-30) mmol/L BUN (7-17) mg/dL Creatinine (0.52-1.04) mg/dL Glucose (74-99) mg/dL POC Glucose (mg/dL) (75-99) mg/dL Assessment and Plan Assessment: Assessment Acute on chronic hypoxemic and hypercapnic respiratory failure, status post intubation with mechanical ventilation and extubation to BiPAP therapy Mental status changes, which may relate to ICU delirium and/or hypercapnic respiratory failure Methicillin-resistant staph aureus Pneumonia, status post BAL with evidence of staphylococcal species. Patient currently on antibiotic therapy Hypotension, resolved, patient previously on pressors Systolic heart failure with an ejection fraction of 30-35% Moderate pulmonary hypertension Stage III chronic kidney disease Stage III chronic decubitus ulcerations Morbid obesity Chronic atrial fibrillation CAD C. difficile colitis Essential hypertension DJD COPD Rule out pickwickian syndrome Plan: Plan dated 05/19/2018 I will attempt to wean the patient off the BiPAP and onto nasal O2 and/or a Venturi mask. We'll continue the antibiotics for the methicillin-resistant staph aureus pneumonia. The patient is currently being nourished with TPN at 30 mL an hour. She cannot take anything by mouth. She remains on IV heparin for her atrial fibrillation and amiodarone at 1 mg per hour. Chest x-ray will be reviewed. Prognosis is poor. My nurse practitioner had a long talk with the family yesterday. I will discuss the case with the hospital doctor today. Additional recommendations and suggestions are forthcoming. Critical-care time 34 minutes Plan dated 05/20/2018 We will continue with the BiPAP at 16 and 5 and 24%. We continue with the amiodarone at 0.5 mg/m heparin fibrillation and rapid ventricular response and nourishment via TPN. She cannot take anything by mouth. Chest x-rays consistent with diffuse bilateral infiltrates. Mental status is only minimally improved. Labs x-rays a medications are reviewed. No additional positive microbiology is seen. Prognosis is guarded. I did speak to the hospitalist yesterday. He will continue updating the family as it relates to the overall condition of this patient. Additional recommendations and suggestions are forthcoming. Critical care time 32 minutes Time with Patient: Greater than 30
--- NOTE | 2018-05-20 08:17 | XR ---
EXAMINATION TYPE: XR chest 1V portable DATE OF EXAM: 05/20/2018 HISTORY: Shortness of breath. COMPARISON: May 17, 2018 TECHNIQUE: Single view of the chest is submitted. FINDINGS: Demonstrated are scattered senescent parenchymal change. There is no evidence for focal infiltrate. Cardiomegaly with bilateral effusions and pulmonary venous congestion compatible with congestive fail ure. Pleural effusions may have increased slightly in the interval. Hilar and mediastinal structures are within normal limits. Degenerative changes are seen of the dorsal spine. IMPRESSION: 1. Mildly progressive congestive failure suggested.
[2018-05-20 08:23] LABS: Glucose,Whole Blood 152 mg/dL (75-99)
[2018-05-20] MEDS: SODIUM FERRIC GLUCONAT-SUCROSE 125 MG in SODIUM CHLORIDE 0.9% 100 ML IVPB SCH (08:23)
[2018-05-20] MEDS: HEPARIN SOD,PORK IN 0.45% NACL 25,000 UNIT in 0.45% NACL 1 500ML.BAG IV SCH (08:23)
[2018-05-20] MEDS: PANTOPRAZOLE 40 MG/10 ML VIAL IV SCH (08:26)
[2018-05-20] MEDS: FUROSEMIDE 10 MG/ML 4 ML VIAL IV SCH ×2 (08:26→20:05)
[2018-05-20] MEDS: ASPIRIN 325 MG TAB PO SCH (08:26)
--- NOTE | 2018-05-20 08:57 | P.PN ---
Subjective Patient is seen in follow-up for acute kidney injury. Unclear as to what her baseline renal function is. Creatinine down to 1.6 today. Patient presented with weakness and was noted to be due to be in atrial fibrillation with RVR. Currently on amiodarone drip. She remains off all vasopressors now. She is noted to have systolic CHF with ejection fraction of 30-35%. She was extubated on May 15. Currently on BiPAP. She has failed swallow eval. TPN started . Vital signs are stable. General: The patient appeared well nourished and normally developed. HEENT: Head exam is unremarkable. Neck is without jugular venous distension. LUNGS: Breath sounds decreased. HEART: Irregular rate and rhythm. ABDOMEN: Abdominal exam reveals normal bowel sounds. Non-tender and non- distended. No evidence of peritonitis. EXTREMITITES: No clubbing, cyanosis, or edema. Objective - Vital Signs Vital signs: Vital Signs Temp 96.8 F L 05/20/18 00:00 Pulse 100 05/20/18 08:01 Resp 14 05/20/18 08:00 BP 88/53 05/14/18 22:00 Pulse Ox 97 05/20/18 08:00 Intake & Output 05/19/18 05/20/18 05/20/18 18:59 06:59 18:59 Intake Total 3759.250 9967.000 140 Output Total 435 872 60 Balance 285.643 8785.000 80 Weight 114.1 kg Intake: IV 885 1050 140 Cefepime 1 gm In Sodium 200 Chloride 0.9% 50 ml @ 100 mls/hr IVPB Q12HR [facility] Rx #:[id number] Fat Emulsion 20% 250 ml @ 105 210 20.833 mls/hr IV DAILY@ 1200 [facility] Rx#:[id number] Magnesium Sulfate-D5w Pmx 100 1 gm In Dextrose/Water 1 100ml.bag @ 100 mls/hr IVPB ONCE ONE Rx#: [id number] Parenteral Electrolytes 380 840 140 20 ml Mvi, Adult No.4 with Vit K 10 ml Trace ( Conc-1Ml/Dose) 1 ml In Amino Acid 5%-D15w 1,000 ml @ 30 mls/hr IV .Q24H [facility] Rx#:[id number] Sodium Ferric Gluconat- 100 Sucrose 125 mg In Sodium Chloride 0.9% 100 ml @ 100 mls/hr IVPB DAILY [facility] Rx#:[id number] Intake, IV Titration 951.139 4941.000 Amount Amiodarone 450 mg In 250 Dextrose 5% in Water 250 ml @ 0.5 MG/MIN 16.66 mls /hr IV .Q15H1M [facility] Rx#: [id number] Heparin Sod,Pork in 0.45% 481.875 500.000 NaCl 25,000 unit In 0.45 % NaCl 1 500ml.bag @ 9.8 UNITS/KG/HR 21.91 mls/hr IV .[id number] [facility] Rx#: [id number] Parenteral Electrolytes 952 20 ml Mvi, Adult No.4 with Vit K 10 ml Trace ( Conc-1Ml/Dose) 1 ml In Amino Acid 5%-D15w 1,000 ml @ 70 mls/hr IV .BY DURATION [facility] Rx#: [id number] Output: Urine 435 872 60 Other: Voiding Method Indwelling Catheter Indwelling Catheter ABP, PAP, CO, CI - Last Documented Arterial Blood Pressure 110/71 - Labs CBC & Chem 7: 05/20/18 04:23 05/20/18 04:23 Labs: Abnormal Lab Results - Last 24 Hours (Table) 05/19/18 05/19/18 05/19/18 Range/Units 12:31 17:20 19:50 WBC (3.8-10.6) k/uL RBC (3.80-5.40) m/uL Hgb (11.4-16.0) gm/dL Hct (34.0-46.0) % MCHC (31.0-37.0) g/dL RDW (11.5-15.5) % Neutrophils # (Manual) (1.3-7.7) k/uL Monocytes # (Manual) (0-1.0) k/uL Myelocytes # (Manual) (0) k/uL Nucleated RBCs (0-0) /100 WBC APTT (22.0-30.0) sec Sodium (137-145) mmol/L Chloride (98-107) mmol/L Carbon Dioxide (22-30) mmol/L BUN (7-17) mg/dL Creatinine (0.52-1.04) mg/dL Glucose (74-99) mg/dL POC Glucose (mg/dL) 175 H 129 H 158 H (75-99) mg/dL 05/20/18 05/20/18 05/20/18 Range/Units 00:05 04:20 04:23 WBC (3.8-10.6) k/uL RBC (3.80-5.40) m/uL Hgb (11.4-16.0) gm/dL Hct (34.0-46.0) % MCHC (31.0-37.0) g/dL RDW (11.5-15.5) % Neutrophils # (Manual) (1.3-7.7) k/uL Monocytes # (Manual) (0-1.0) k/uL Myelocytes # (Manual) (0) k/uL Nucleated RBCs (0-0) /100 WBC APTT (22.0-30.0) sec Sodium 132 L (137-145) mmol/L Chloride 92 L (98-107) mmol/L Carbon Dioxide 36 H (22-30) mmol/L BUN 46 H (7-17) mg/dL Creatinine 1.60 H (0.52-1.04) mg/dL Glucose 127 H (74-99) mg/dL POC Glucose (mg/dL) 135 H 147 H (75-99) mg/dL 05/20/18 05/20/18 05/20/18 Range/Units 04:23 04:23 08:21 WBC 19.1 H (3.8-10.6) k/uL RBC 3.08 L (3.80-5.40) m/uL Hgb 7.7 L (11.4-16.0) gm/dL Hct 25.8 L (34.0-46.0) % MCHC 30.0 L (31.0-37.0) g/dL RDW 18.9 H (11.5-15.5) % Neutrophils # (Manual) 14.10 H (1.3-7.7) k/uL Monocytes # (Manual) 1.72 H (0-1.0) k/uL Myelocytes # (Manual) 1.15 H (0) k/uL Nucleated RBCs 1 H (0-0) /100 WBC APTT 88.1 H (22.0-30.0) sec Sodium (137-145) mmol/L Chloride (98-107) mmol/L Carbon Dioxide (22-30) mmol/L BUN (7-17) mg/dL Creatinine (0.52-1.04) mg/dL Glucose (74-99) mg/dL POC Glucose (mg/dL) 152 H (75-99) mg/dL Assessment and Plan Plan: Assessment: 1. Nonoliguric acute kidney injury secondary to ATN secondary to hemodynamic instability along with component of cardiorenal syndrome. Unclear as to what her baseline renal function is. Creatinine down to 1.6 today. No proteinuria noted on urinalysis. 2. Atrial fibrillation with RVR, maintained on IV amiodarone. 3. Systolic CHF with ejection fraction of 30-35%. 4. Hypotension, off vasopressors. 5. Volume overload. Improving. 6. Hypokalemia secondary to diuresis. Magnesium replete. 7. Hyponatremia secondary to acute kidney injury. 8. MRSA in bronchial washings maintained on IV abx per ID. 9. Anemia. Iron deficiency noted. Plan: Continue lasix 40 IV bid. Avoid nephrotoxic agents and hypotensive episodes. Continue to monitor renal function and urine output. Avoid vancomycin if possible. Dose to be adjusted per pharmacy - level 23.7 today. Patient started on TPN 05/18. Continue IV Ferrlecit Second dose today.
--- NOTE | 2018-05-20 11:12 | PN ---
PROGRESS NOTE This patient's condition discussed with the nurse and the chart reviewed. Patient remains n.p.o. The patient is being treated for atrial fibrillation, pneumonia and respiratory failure. Patient has been getting some TPN. Patient's heart rate remains fairly well controlled with IV amiodarone. The blood pressure is 112/69 mmHg. Heart rate is 90 to 100 per minute. First and second heart sounds are normal. Lungs reveal bilateral scattered wheezes. Discussed with the patient's primary care doctor and nurse. We will continue the patient on IV amiodarone until she is able to take anything orally to control her rate. MMODL / IJN: [id number] /
[2018-05-20 11:53] LABS: Glucose,Whole Blood 102 mg/dL (75-99)
[2018-05-20] MEDS: BISACODYL 10 MG SUPP RECTAL SCH (12:38)
[2018-05-20] MEDS: FAT EMULSION 20% 250 ML IV SCH (12:38)
[2018-05-20 16:30] LABS: Glucose,Whole Blood 141 mg/dL (75-99)
[2018-05-20 19:49] LABS: Glucose,Whole Blood 130 mg/dL (75-99)
[2018-05-20] MEDS ORDERED: ACETAMINOPHEN IV (For NPO) 1,000 MG in EMPTY BAG 1 BAG IVPB PRN (22:12)
[2018-05-21 00:12] LABS: Glucose,Whole Blood 122 mg/dL (75-99)
[2018-05-21] MEDS: INSULIN ASPART 100 UNIT/ML 1 ML 10 ML VIAL SQ SCH ×6 (00:12→20:30)
[2018-05-21] MEDS: IPRATROPIUM-ALBUTEROL 3 ML NEB INHALATION SCH ×6 (03:09→23:06)
[2018-05-21 04:50] LABS: Glucose,Whole Blood 153 mg/dL (75-99)
[2018-05-21 05:14] LABS: Calcium 9.2 mg/dL (8.4-10.2); Phosphorus 3.2 mg/dL (2.5-4.5); Potassium 4.2 mmol/L (3.5-5.1)
[2018-05-21 05:16] LABS: Anisocytosis Slight; HCT 25.8 % (34.0-46.0); HGB 7.8 gm/dL (11.4-16.0); Hypochromasia Marked; MCH 25.9 pg (25.0-35.0); MCHC 30.4 g/dL (31.0-37.0); MCV 85.3 fL (80.0-100.0); Mean Platelet Volume 8.1; Platelet Count 302 k/uL (150-450); Poikilocytosis Slight; RBC 3.03 m/uL (3.80-5.40); RDW 19.2 % (11.5-15.5)
[2018-05-21 05:19] LABS: Vancomycin,Random 20.5 ug/mL
[2018-05-21 06:43] LABS: Band Neutrophils % 8 %; Basophils # (M) 0.24 k/uL (0-0.2); Lymphocytes # (M) 1.19 k/uL (1.0-4.8); Metamyelocytes % 8 %; Monocytes # (M) 0.71 k/uL (0-1.0); Myelocytes # (M) 0.71 k/uL (0); Myelocytes % 3 %; Neutrophils % (M) 74 %; Nucleated Red Blood Cells 1 /100 WBC (0-0); Total Cells Counted 200; WBC 23.8 k/uL (3.8-10.6)
[2018-05-21 06:44] LABS: Polychromasia Present
[2018-05-21] MEDS ORDERED: VANCOMYCIN 1,750 MG in SODIUM CHLORIDE 0.9% 500 ML IVPB ONE (07:00)
--- NOTE | 2018-05-21 08:14 | XR ---
EXAMINATION TYPE: XR chest 1V portable DATE OF EXAM: 05/21/2018 CLINICAL HISTORY: Difficulty breathing progress study. TECHNIQUE: Single AP portable semiupright view of the chest is obtained. COMPARISON: Chest x-ray from one day earlier and older studies. FINDINGS: Stable right subclavian central venous catheter. There is persistent cardiomegaly with sma ll left greater than right pleural effusions. Reticular interstitial prominence bilaterally is again seen. Suspect underlying pulmonary artery hypertension with hilar prominence. Advanced degenerative c hange right shoulder with probable subluxation is redemonstrated. IMPRESSION: Overall stable findings, chronic parenchymal changes and cardiomegaly with small left g reater than right pleural effusions and associated bibasilar atelectasis and/or infiltrate all redemo nstrated.
--- NOTE | 2018-05-21 08:39 | P.PN ---
Subjective Progress Note Date: 05/21/18 Principal diagnosis: Respiratory failure Progress note dated 05/19/2018 67-year-old female with a history of acute on chronic hypoxemic and hypercapnic respiratory failure. The patient was extubated a couple days ago to BiPAP therapy and has been pretty much BiPAP dependent since. This morning, we will switch her to nasal O2 and ventilatory mask with the idea of maintaining saturations in the high 80s and low 90s. She also has a history of hypertension. Was on pressors but they have been weaned off. In addition, the patient was thought to have a left lung pneumonia, heart failure, pulmonary hypertension, stage III chronic kidney disease, stage III chronic decubitus ulcerations, morbid obesity, chronic atrial fibrillation, CAD, C. difficile colitis, hypertension, DJD, COPD, and mental status changes. Currently, the patient was on BiPAP with an IPAP of 14 and EPAP of 5 and 24% oxygen. IVs included TPN at 30 mL an hour heparin via weightbase protocol and amiodarone at 1 mg per hour. She still appears somewhat lethargic and somnolent but is slightly better than she was yesterday. Still pretty much has a blank stare on her face. She is still in atrial fibrillation. Progress note dated 05/20/2018 67-year-old female with a history of acute on chronic hypoxemic and hypercapnic respiratory failure. She was extubated a number of days ago and has been pretty much BiPAP dependent since. Currently, her BiPAP settings included a IPAP of 16 and EPAP of 5 with an FiO2 of 24%. She is also getting TPN at 30 mL an hour heparin via weightbase protocol and amiodarone a 0.5 mg/m for her chronic atrial fibrillation and rapid ventricular response. She seems a bit more awake and alert today. Her lower extremity edema is improved. She still in atrial fibrillation. Chest x-ray is consistent with diffuse bilateral infiltrates likely heart failure although pneumonia cannot be excluded. Bronchoscopy and washings from May 14 show methicillin-resistant staph aureus. White count 19.1, hemoglobin 7.7, Macrobid 25.8 and platelet count normal. PTT is 88.1. Sodium 132, potassium 3.7, chloride 92 and CO2 36. BUN and creatinine were 46 and 1.60. I would say since I started seeing her on Thursday, she is about the same or only minimally improved mostly from the mental status picture. She still has a long way to go and is chronically and critically ill at this point. Progress note dated 05/21/2018 67-year-old female with a history of acute on chronic hypoxemic and hypercapnic respiratory failure. She was extubated a number of days ago has been pretty much BiPAP dependent since. Yesterday she spent about an hour and half off the BiPAP device on nasal cannula. She did okay. Currently, she is on 4 L by nasal cannula. Her BiPAP settings of 16 and 5 and 30% FiO2. She currently is on amiodarone appointment 5 mg/m heparin via weightbase protocol TPN at 70 mL an hour and lipids today at noon. Overall situation is about the same as it has been this entire week. Her mental status is not really improved all that much. She does respond to verbal stimulation. She seems sleepy and lethargic most of the time. Chest x-ray today shows stable findings of chronic parenchymal changes and cardiomegaly with small left pleural effusion. There are some bilateral and basilar infiltrates. Objective - Vital Signs Vital signs: Vital Signs Temp 96.7 F L 05/21/18 04:00 Pulse 94 05/21/18 08:06 Resp 12 05/21/18 07:00 BP 88/53 05/14/18 22:00 Pulse Ox 98 05/21/18 07:00 Intake & Output 05/20/18 05/21/18 05/21/18 18:59 06:59 18:59 Intake Total 2428.040 1779.453 140 Output Total 905 745 75 Balance 655.246 790.453 65 Weight 114.1 kg Intake: IV 1449.6 1280 140 Amiodarone 450 mg In 334.0 630 140 Dextrose 5% in Water 250 ml @ 0.5 MG/MIN 16.66 mls /hr IV .Q15H1M [facility] Rx#: [id number] Fat Emulsion 20% 250 ml @ 145.6 80 20.833 mls/hr IV DAILY@ 1200 [facility] Rx#:[id number] Parenteral Electrolytes 420 70 20 ml In Amino Acid 5%- D15w 1,000 ml @ 70 mls/hr IV .BY DURATION [facility] Rx#: [id number] Parenteral Electrolytes 350 20 ml Mvi, Adult No.4 with Vit K 10 ml Trace ( Conc-1Ml/Dose) 1 ml In Amino Acid 5%-D15w 1,000 ml @ 30 mls/hr IV .Q24H ONE Rx#:[id number] Potassium Chloride 20 meq 100 In Water For Injection 1 100ml.bag @ 50 mls/hr IVPB Q2H [facility] Rx#: [id number] Sodium Ferric Gluconat- 100 Sucrose 125 mg In Sodium Chloride 0.9% 100 ml @ 100 mls/hr IVPB DAILY [facility] Rx#:[id number] Vancomycin 1,750 mg In 500 Sodium Chloride 0.9% 500 ml @ 167 mls/hr IVPB ONCE ONE Rx#:[id number] Intake, IV Titration 110.646 255.453 Amount Amiodarone 450 mg In 255.453 Dextrose 5% in Water 250 ml @ 0.5 MG/MIN 16.66 mls /hr IV .Q15H1M [facility] Rx#: [id number] Heparin Sod,Pork in 0.45% 110.646 NaCl 25,000 unit In 0.45 % NaCl 1 500ml.bag @ 9.8 UNITS/KG/HR 21.91 mls/hr IV .[id number] [facility] Rx#: [id number] Output: Urine 905 745 75 Other: Voiding Method Indwelling Catheter Indwelling Catheter # Voids 1 # Bowel Movements 1 ABP, PAP, CO, CI - Last Documented Arterial Blood Pressure 107/58 - Exam No acute distress, lethargic and somnolent, is unable to answer questions in a coherent fashion. She is currently on nasal O2 at 4 L. She seems a bit more awake today than yesterday. HEENT examination is grossly unremarkable. Mucous membranes are moist. No oral lesions. Neck supple. Full range of motion. No adenopathy thyromegaly or neck vein distention. Cardiovascular examination reveals a irregular rhythm and rate. S1-S2 normal. No S3 or S4. Heart sounds distant. Lungs reveal bilateral coarse rhonchi. Some bibasilar crackles noted. Breath sounds equal bilaterally. No wheezes appreciated. Lung sounds today are about the same as they were yesterday. Abdomen soft bowel sounds are heard. No masses or tenderness. Extremities are intact. Bilateral lower extremity edema noted. It is pitting. No cyanosis or clubbing.. Skin is without rash or lesion. Neurologic examination is difficult to assess. - Labs CBC & Chem 7: 05/21/18 04:51 05/21/18 04:51 Labs: Abnormal Lab Results - Last 24 Hours (Table) 05/20/18 05/20/18 05/20/18 Range/Units 11:52 12:33 16:28 WBC (3.8-10.6) k/uL RBC (3.80-5.40) m/uL Hgb (11.4-16.0) gm/dL Hct (34.0-46.0) % MCHC (31.0-37.0) g/dL RDW (11.5-15.5) % Neutrophils # (Manual) (1.3-7.7) k/uL Basophils # (Manual) (0-0.2) k/uL Metamyelocytes # (Man) (0) k/uL Myelocytes # (Manual) (0) k/uL Nucleated RBCs (0-0) /100 WBC APTT 92.4 H (22.0-30.0) sec Sodium (137-145) mmol/L Chloride (98-107) mmol/L Carbon Dioxide (22-30) mmol/L BUN (7-17) mg/dL Creatinine (0.52-1.04) mg/dL Glucose (74-99) mg/dL POC Glucose (mg/dL) 102 H 141 H (75-99) mg/dL 05/20/18 05/20/18 05/21/18 Range/Units 18:10 19:47 00:11 WBC (3.8-10.6) k/uL RBC (3.80-5.40) m/uL Hgb (11.4-16.0) gm/dL Hct (34.0-46.0) % MCHC (31.0-37.0) g/dL RDW (11.5-15.5) % Neutrophils # (Manual) (1.3-7.7) k/uL Basophils # (Manual) (0-0.2) k/uL Metamyelocytes # (Man) (0) k/uL Myelocytes # (Manual) (0) k/uL Nucleated RBCs (0-0) /100 WBC APTT 57.6 H (22.0-30.0) sec Sodium (137-145) mmol/L Chloride (98-107) mmol/L Carbon Dioxide (22-30) mmol/L BUN (7-17) mg/dL Creatinine (0.52-1.04) mg/dL Glucose (74-99) mg/dL POC Glucose (mg/dL) 130 H 122 H (75-99) mg/dL 05/21/18 05/21/18 05/21/18 Range/Units 04:47 04:51 04:51 WBC 23.8 H (3.8-10.6) k/uL RBC 3.03 L (3.80-5.40) m/uL Hgb 7.8 L (11.4-16.0) gm/dL Hct 25.8 L (34.0-46.0) % MCHC 30.4 L (31.0-37.0) g/dL RDW 19.2 H (11.5-15.5) % Neutrophils # (Manual) 19.50 H (1.3-7.7) k/uL Basophils # (Manual) 0.24 H (0-0.2) k/uL Metamyelocytes # (Man) 1.90 H (0) k/uL Myelocytes # (Manual) 0.71 H (0) k/uL Nucleated RBCs 1 H (0-0) /100 WBC APTT (22.0-30.0) sec Sodium 131 L (137-145) mmol/L Chloride 93 L (98-107) mmol/L Carbon Dioxide 35 H (22-30) mmol/L BUN 54 H (7-17) mg/dL Creatinine 1.30 H (0.52-1.04) mg/dL Glucose 143 H (74-99) mg/dL POC Glucose (mg/dL) 153 H (75-99) mg/dL 05/21/18 Range/Units 04:51 WBC (3.8-10.6) k/uL RBC (3.80-5.40) m/uL Hgb (11.4-16.0) gm/dL Hct (34.0-46.0) % MCHC (31.0-37.0) g/dL RDW (11.5-15.5) % Neutrophils # (Manual) (1.3-7.7) k/uL Basophils # (Manual) (0-0.2) k/uL Metamyelocytes # (Man) (0) k/uL Myelocytes # (Manual) (0) k/uL Nucleated RBCs (0-0) /100 WBC APTT 51.8 H (22.0-30.0) sec Sodium (137-145) mmol/L Chloride (98-107) mmol/L Carbon Dioxide (22-30) mmol/L BUN (7-17) mg/dL Creatinine (0.52-1.04) mg/dL Glucose (74-99) mg/dL POC Glucose (mg/dL) (75-99) mg/dL Assessment and Plan Assessment: Assessment Acute on chronic hypoxemic and hypercapnic respiratory failure, status post intubation with mechanical ventilation and extubation to BiPAP therapy Mental status changes, which may relate to ICU delirium and/or hypercapnic respiratory failure Methicillin-resistant staph aureus Pneumonia, status post BAL with evidence of staphylococcal species. Patient currently on antibiotic therapy Hypotension, resolved, patient previously on pressors Systolic heart failure with an ejection fraction of 30-35% Moderate pulmonary hypertension Stage III chronic kidney disease Stage III chronic decubitus ulcerations Morbid obesity Chronic atrial fibrillation CAD C. difficile colitis Essential hypertension DJD COPD Rule out pickwickian syndrome Plan: Plan dated 05/19/2018 I will attempt to wean the patient off the BiPAP and onto nasal O2 and/or a Venturi mask. We'll continue the antibiotics for the methicillin-resistant staph aureus pneumonia. The patient is currently being nourished with TPN at 30 mL an hour. She cannot take anything by mouth. She remains on IV heparin for her atrial fibrillation and amiodarone at 1 mg per hour. Chest x-ray will be reviewed. Prognosis is poor. My nurse practitioner had a long talk with the family yesterday. I will discuss the case with the hospital doctor today. Additional recommendations and suggestions are forthcoming. Critical-care time 34 minutes Plan dated 05/20/2018 We will continue with the BiPAP at 16 and 5 and 24%. We continue with the amiodarone at 0.5 mg/m heparin fibrillation and rapid ventricular response and nourishment via TPN. She cannot take anything by mouth. Chest x-rays consistent with diffuse bilateral infiltrates. Mental status is only minimally improved. Labs x-rays a medications are reviewed. No additional positive microbiology is seen. Prognosis is guarded. I did speak to the hospitalist yesterday. He will continue updating the family as it relates to the overall condition of this patient. Additional recommendations and suggestions are forthcoming. Critical care time 32 minutes Plan dated 05/21/2018 Today's chest x-ray is about the same as it was for the last couple of days. This been no major changes. White count is 23.8 hemoglobin 7.8 hematocrit 25.8 and platelet count is normal. Sodium 131, potassium 4.2, chloride is 93, and CO2 35. BUN and creatinine were 54 and 1.30. The only positive microbiology was from May 14, ori washes, which showed methicillin-resistant staph aureus. This has been treated with vancomycin. Labs x-rays a medications are all reviewed. The patient remains on amiodarone for atrial fibrillation. Prognosis is guarded. There is been little improvement over the last 5 days in my opinion. Critical care time 32 minutes Time with Patient: Greater than 30
[2018-05-21 08:53] LABS: Glucose,Whole Blood 133 mg/dL (75-99)
[2018-05-21] MEDS: FUROSEMIDE 10 MG/ML 4 ML VIAL IV SCH ×2 (08:58→20:39)
[2018-05-21] MEDS: PANTOPRAZOLE 40 MG/10 ML VIAL IV SCH (08:58)
[2018-05-21] MEDS: SODIUM FERRIC GLUCONAT-SUCROSE 125 MG in SODIUM CHLORIDE 0.9% 100 ML IVPB SCH (09:27)
[2018-05-21] MEDS: ASPIRIN 325 MG TAB PO SCH (09:28)
[2018-05-21] MEDS: HEPARIN SOD,PORK IN 0.45% NACL 25,000 UNIT in 0.45% NACL 1 500ML.BAG IV SCH (10:21)
[2018-05-21] MEDS: AMIODARONE 450 MG in DEXTROSE 5% IN WATER 250 ML IV SCH ×2 (10:21)
--- NOTE | 2018-05-21 11:09 | P.PN ---
Subjective Patient is seen in follow-up for acute kidney injury. Unclear as to what her baseline renal function is. Creatinine down to 1.3 today. Patient presented with weakness and was noted to be due to be in atrial fibrillation with RVR. Currently on amiodarone drip. She remains off all vasopressors now. She is noted to have systolic CHF with ejection fraction of 30-35%. She was extubated on May 15. Currently off BiPAP. She has failed swallow eval. TPN started . Vital signs are stable. General: The patient appeared well nourished and normally developed. HEENT: Head exam is unremarkable. Neck is without jugular venous distension. LUNGS: Breath sounds decreased. HEART: Irregular rate and rhythm. ABDOMEN: Abdominal exam reveals normal bowel sounds. Non-tender and non- distended. No evidence of peritonitis. EXTREMITITES: 1+ edema. Objective - Vital Signs Vital signs: Vital Signs Temp 97.5 F L 05/21/18 08:00 Pulse 73 05/21/18 11:00 Resp 11 L 05/21/18 11:00 BP 88/53 05/14/18 22:00 Pulse Ox 100 05/21/18 11:00 Intake & Output 05/20/18 05/21/18 05/21/18 18:59 06:59 18:59 Intake Total 7016.564 5274.453 966.173 Output Total 905 745 225 Balance 655.246 790.453 741.173 Weight 114.1 kg 114.1 kg Intake: IV 1449.6 1280 399.8 Amiodarone 450 mg In 334.0 630 189.8 Dextrose 5% in Water 250 ml @ 0.5 MG/MIN 16.66 mls /hr IV .Q15H1M [facility] Rx#: [id number] Fat Emulsion 20% 250 ml @ 145.6 80 20.833 mls/hr IV DAILY@ 1200 [facility] Rx#:[id number] Parenteral Electrolytes 420 70 210 20 ml In Amino Acid 5%- D15w 1,000 ml @ 70 mls/hr IV .BY DURATION [facility] Rx#: [id number] Parenteral Electrolytes 350 20 ml Mvi, Adult No.4 with Vit K 10 ml Trace ( Conc-1Ml/Dose) 1 ml In Amino Acid 5%-D15w 1,000 ml @ 30 mls/hr IV .Q24H ONE Rx#:[id number] Potassium Chloride 20 meq 100 In Water For Injection 1 100ml.bag @ 50 mls/hr IVPB Q2H [facility] Rx#: [id number] Sodium Ferric Gluconat- 100 Sucrose 125 mg In Sodium Chloride 0.9% 100 ml @ 100 mls/hr IVPB DAILY [facility] Rx#:[id number] Vancomycin 1,750 mg In 500 Sodium Chloride 0.9% 500 ml @ 167 mls/hr IVPB ONCE ONE Rx#:[id number] Intake, IV Titration 110.646 255.453 566.373 Amount Amiodarone 450 mg In 255.453 201.586 Dextrose 5% in Water 250 ml @ 0.5 MG/MIN 16.66 mls /hr IV .Q15H1M [facility] Rx#: [id number] Heparin Sod,Pork in 0.45% 110.646 364.787 NaCl 25,000 unit In 0.45 % NaCl 1 500ml.bag @ 9.8 UNITS/KG/HR 21.91 mls/hr IV .[id number] [facility] Rx#: [id number] Output: Urine 905 745 225 Other: Voiding Method Indwelling Catheter Indwelling Catheter # Voids 1 # Bowel Movements 1 ABP, PAP, CO, CI - Last Documented Arterial Blood Pressure 91/51 - Labs CBC & Chem 7: 05/21/18 04:51 05/21/18 04:51 Labs: Abnormal Lab Results - Last 24 Hours (Table) 05/20/18 05/20/18 05/20/18 Range/Units 11:52 12:33 16:28 WBC (3.8-10.6) k/uL RBC (3.80-5.40) m/uL Hgb (11.4-16.0) gm/dL Hct (34.0-46.0) % MCHC (31.0-37.0) g/dL RDW (11.5-15.5) % Neutrophils # (Manual) (1.3-7.7) k/uL Basophils # (Manual) (0-0.2) k/uL Metamyelocytes # (Man) (0) k/uL Myelocytes # (Manual) (0) k/uL Nucleated RBCs (0-0) /100 WBC APTT 92.4 H (22.0-30.0) sec Sodium (137-145) mmol/L Chloride (98-107) mmol/L Carbon Dioxide (22-30) mmol/L BUN (7-17) mg/dL Creatinine (0.52-1.04) mg/dL Glucose (74-99) mg/dL POC Glucose (mg/dL) 102 H 141 H (75-99) mg/dL 05/20/18 05/20/18 05/21/18 Range/Units 18:10 19:47 00:11 WBC (3.8-10.6) k/uL RBC (3.80-5.40) m/uL Hgb (11.4-16.0) gm/dL Hct (34.0-46.0) % MCHC (31.0-37.0) g/dL RDW (11.5-15.5) % Neutrophils # (Manual) (1.3-7.7) k/uL Basophils # (Manual) (0-0.2) k/uL Metamyelocytes # (Man) (0) k/uL Myelocytes # (Manual) (0) k/uL Nucleated RBCs (0-0) /100 WBC APTT 57.6 H (22.0-30.0) sec Sodium (137-145) mmol/L Chloride (98-107) mmol/L Carbon Dioxide (22-30) mmol/L BUN (7-17) mg/dL Creatinine (0.52-1.04) mg/dL Glucose (74-99) mg/dL POC Glucose (mg/dL) 130 H 122 H (75-99) mg/dL 05/21/18 05/21/18 05/21/18 Range/Units 04:47 04:51 04:51 WBC 23.8 H (3.8-10.6) k/uL RBC 3.03 L (3.80-5.40) m/uL Hgb 7.8 L (11.4-16.0) gm/dL Hct 25.8 L (34.0-46.0) % MCHC 30.4 L (31.0-37.0) g/dL RDW 19.2 H (11.5-15.5) % Neutrophils # (Manual) 19.50 H (1.3-7.7) k/uL Basophils # (Manual) 0.24 H (0-0.2) k/uL Metamyelocytes # (Man) 1.90 H (0) k/uL Myelocytes # (Manual) 0.71 H (0) k/uL Nucleated RBCs 1 H (0-0) /100 WBC APTT (22.0-30.0) sec Sodium 131 L (137-145) mmol/L Chloride 93 L (98-107) mmol/L Carbon Dioxide 35 H (22-30) mmol/L BUN 54 H (7-17) mg/dL Creatinine 1.30 H (0.52-1.04) mg/dL Glucose 143 H (74-99) mg/dL POC Glucose (mg/dL) 153 H (75-99) mg/dL 05/21/18 05/21/18 Range/Units 04:51 08:52 WBC (3.8-10.6) k/uL RBC (3.80-5.40) m/uL Hgb (11.4-16.0) gm/dL Hct (34.0-46.0) % MCHC (31.0-37.0) g/dL RDW (11.5-15.5) % Neutrophils # (Manual) (1.3-7.7) k/uL Basophils # (Manual) (0-0.2) k/uL Metamyelocytes # (Man) (0) k/uL Myelocytes # (Manual) (0) k/uL Nucleated RBCs (0-0) /100 WBC APTT 51.8 H (22.0-30.0) sec Sodium (137-145) mmol/L Chloride (98-107) mmol/L Carbon Dioxide (22-30) mmol/L BUN (7-17) mg/dL Creatinine (0.52-1.04) mg/dL Glucose (74-99) mg/dL POC Glucose (mg/dL) 133 H (75-99) mg/dL Assessment and Plan Plan: Assessment: 1. Nonoliguric acute kidney injury secondary to ATN secondary to hemodynamic instability along with component of cardiorenal syndrome. Unclear as to what her baseline renal function is. Creatinine down to 1.3 today. No proteinuria noted on urinalysis. 2. Atrial fibrillation with RVR, maintained on IV amiodarone. 3. Systolic CHF with ejection fraction of 30-35%. 4. Hypotension, off vasopressors. 5. Volume overload. Improving. 6. Hypokalemia secondary to diuresis. Magnesium replete. Improved. 7. Hyponatremia secondary to acute kidney injury, poor solute intake. 8. MRSA in bronchial washings maintained on IV abx per ID. 9. Anemia. Iron deficiency noted. Plan: Continue lasix 40 IV bid. Avoid nephrotoxic agents and hypotensive episodes. Continue to monitor renal function and urine output. Avoid vancomycin if possible. Dose to be adjusted per pharmacy - level down to 20.5 today. Patient started on TPN 05/18. Continue IV Ferrlecit - third dose today.
[2018-05-21 11:53] LABS: Glucose,Whole Blood 108 mg/dL (75-99)
--- NOTE | 2018-05-21 11:59 | P.PN ---
Subjective Summary: This is a 67-year-old female with history of obesity, sleep apnea, chronic hypoxic and hypercarbic respiratory failure requiring nocturnal and when necessary BiPAP at home, mostly bedridden due to severe deconditioning, with the decubitus, diastolic heart failure, chronically on Coumadin for atrial fibrillation, who was admitted here due to worsening respiratory status and respiratory distress. She was intubated in the emergency department and transferred to ICU. She had signs of fluid overload and pulmonary edema, pneumonia, acute renal failure and cardiorenal syndrome with decreased urine output, worsening decubitus with cellulitis. Echo showed new systolic dysfunction of 30-35%. She was treated with diuresis, pressors, broad-spectrum antibiotics. Bronchoscopy washings from the left lung grew MRSA and she was continued on vancomycin. She was in A. fib with RVR and she was treated with heparin and amiodarone drip since she was not able to take anything by mouth. Eventually patient was extubated and maintained on BiPAP. Interval history: Today patient is doing much better. She was able to tolerate being off of BiPAP. She is currently on nasal cannula high flow tolerating well. She is awake and alert and knows she is in [place]. She is not certain about a month. She following months appropriately and answers simple questions. She feels following evaluation yesterday but currently is following evaluation is pending. Her renal functions been steadily improving. She did have some pericatheter leak yesterday but the catheter was unclogged and now is draining properly. She did not have any nausea vomiting shortness of breath or fever. She does have steadily elevation of white blood cell count. She is maintained on vancomycin. She still on amiodarone and heparin drip since she cannot have anything by mouth right now. She is on TPN. Chest x-ray from this morning was reviewed showing small bilateral effusions and some resistant infiltrates Objective - Vital Signs Vital signs: Vital Signs Temp 97.5 F L 05/21/18 08:00 Pulse 101 H 05/21/18 11:43 Resp 11 L 05/21/18 11:00 BP 88/53 05/14/18 22:00 Pulse Ox 100 05/21/18 11:00 Intake & Output 05/20/18 05/21/18 05/21/18 18:59 06:59 18:59 Intake Total 0309.084 0757.453 966.173 Output Total 905 745 225 Balance 655.246 790.453 741.173 Weight 114.1 kg 114.1 kg Intake: IV 1449.6 1280 399.8 Amiodarone 450 mg In 334.0 630 189.8 Dextrose 5% in Water 250 ml @ 0.5 MG/MIN 16.66 mls /hr IV .Q15H1M [facility] Rx#: [id number] Fat Emulsion 20% 250 ml @ 145.6 80 20.833 mls/hr IV DAILY@ 1200 [facility] Rx#:[id number] Parenteral Electrolytes 420 70 210 20 ml In Amino Acid 5%- D15w 1,000 ml @ 70 mls/hr IV .BY DURATION [facility] Rx#: [id number] Parenteral Electrolytes 350 20 ml Mvi, Adult No.4 with Vit K 10 ml Trace ( Conc-1Ml/Dose) 1 ml In Amino Acid 5%-D15w 1,000 ml @ 30 mls/hr IV .Q24H ONE Rx#:[id number] Potassium Chloride 20 meq 100 In Water For Injection 1 100ml.bag @ 50 mls/hr IVPB Q2H [facility] Rx#: [id number] Sodium Ferric Gluconat- 100 Sucrose 125 mg In Sodium Chloride 0.9% 100 ml @ 100 mls/hr IVPB DAILY [facility] Rx#:[id number] Vancomycin 1,750 mg In 500 Sodium Chloride 0.9% 500 ml @ 167 mls/hr IVPB ONCE ONE Rx#:[id number] Intake, IV Titration 110.646 255.453 566.373 Amount Amiodarone 450 mg In 255.453 201.586 Dextrose 5% in Water 250 ml @ 0.5 MG/MIN 16.66 mls /hr IV .Q15H1M [facility] Rx#: [id number] Heparin Sod,Pork in 0.45% 110.646 364.787 NaCl 25,000 unit In 0.45 % NaCl 1 500ml.bag @ 9.8 UNITS/KG/HR 21.91 mls/hr IV .[id number] [facility] Rx#: [id number] Output: Urine 905 745 225 Other: Voiding Method Indwelling Catheter Indwelling Catheter # Voids 1 # Bowel Movements 1 ABP, PAP, CO, CI - Last Documented Arterial Blood Pressure 91/51 - Exam General: No distress. She is much more awake today and off of BiPAP in no distress.. HEENT: Head: conjunctiva clear with mild redness in the corner of the right eye, sclera non-icteric, EOM intact, PERRL Neck: Neck short and thick but no masses or stridor noted Heart: Irregularly irregular tachycardic Lungs: Diminished breath sounds bilaterally Limited exam Abdomen: Bowel sounds normal, no tenderness, organomegaly, masses, or hernia Extremities: 1+ edema bilaterally, much better, No , cyanosis or varicosities, some worsening swelling in the right hand Musculoskeletal: No peripheral joint swelling, pain, erythema. No clubbing Logical examination she does not show any abnormalities in the cranial nerves her extraocular movements are intact eyes are in the midline pupils are round reactive and symmetrical is no facial asymmetry tongue protrudes in the midline she speaks coherently and in the low voice. She is able to lift both arms off the bed acute the mouth for 10 seconds she has a solid heat treat inspector in both hands she is able to move both legs and her toes there is no clonus DTRs are diminished in both patellar she reports sensation of light touch in both legs and arms when asked. - Labs CBC & Chem 7: 05/21/18 04:51 05/21/18 04:51 Labs: Abnormal Lab Results - Last 24 Hours (Table) 05/20/18 05/20/18 05/20/18 Range/Units 11:52 12:33 16:28 WBC (3.8-10.6) k/uL RBC (3.80-5.40) m/uL Hgb (11.4-16.0) gm/dL Hct (34.0-46.0) % MCHC (31.0-37.0) g/dL RDW (11.5-15.5) % Neutrophils # (Manual) (1.3-7.7) k/uL Basophils # (Manual) (0-0.2) k/uL Metamyelocytes # (Man) (0) k/uL Myelocytes # (Manual) (0) k/uL Nucleated RBCs (0-0) /100 WBC APTT 92.4 H (22.0-30.0) sec Sodium (137-145) mmol/L Chloride (98-107) mmol/L Carbon Dioxide (22-30) mmol/L BUN (7-17) mg/dL Creatinine (0.52-1.04) mg/dL Glucose (74-99) mg/dL POC Glucose (mg/dL) 102 H 141 H (75-99) mg/dL 05/20/18 05/20/18 05/21/18 Range/Units 18:10 19:47 00:11 WBC (3.8-10.6) k/uL RBC (3.80-5.40) m/uL Hgb (11.4-16.0) gm/dL Hct (34.0-46.0) % MCHC (31.0-37.0) g/dL RDW (11.5-15.5) % Neutrophils # (Manual) (1.3-7.7) k/uL Basophils # (Manual) (0-0.2) k/uL Metamyelocytes # (Man) (0) k/uL Myelocytes # (Manual) (0) k/uL Nucleated RBCs (0-0) /100 WBC APTT 57.6 H (22.0-30.0) sec Sodium (137-145) mmol/L Chloride (98-107) mmol/L Carbon Dioxide (22-30) mmol/L BUN (7-17) mg/dL Creatinine (0.52-1.04) mg/dL Glucose (74-99) mg/dL POC Glucose (mg/dL) 130 H 122 H (75-99) mg/dL 05/21/18 05/21/18 05/21/18 Range/Units 04:47 04:51 04:51 WBC 23.8 H (3.8-10.6) k/uL RBC 3.03 L (3.80-5.40) m/uL Hgb 7.8 L (11.4-16.0) gm/dL Hct 25.8 L (34.0-46.0) % MCHC 30.4 L (31.0-37.0) g/dL RDW 19.2 H (11.5-15.5) % Neutrophils # (Manual) 19.50 H (1.3-7.7) k/uL Basophils # (Manual) 0.24 H (0-0.2) k/uL Metamyelocytes # (Man) 1.90 H (0) k/uL Myelocytes # (Manual) 0.71 H (0) k/uL Nucleated RBCs 1 H (0-0) /100 WBC APTT (22.0-30.0) sec Sodium 131 L (137-145) mmol/L Chloride 93 L (98-107) mmol/L Carbon Dioxide 35 H (22-30) mmol/L BUN 54 H (7-17) mg/dL Creatinine 1.30 H (0.52-1.04) mg/dL Glucose 143 H (74-99) mg/dL POC Glucose (mg/dL) 153 H (75-99) mg/dL 05/21/18 05/21/18 Range/Units 04:51 08:52 WBC (3.8-10.6) k/uL RBC (3.80-5.40) m/uL Hgb (11.4-16.0) gm/dL Hct (34.0-46.0) % MCHC (31.0-37.0) g/dL RDW (11.5-15.5) % Neutrophils # (Manual) (1.3-7.7) k/uL Basophils # (Manual) (0-0.2) k/uL Metamyelocytes # (Man) (0) k/uL Myelocytes # (Manual) (0) k/uL Nucleated RBCs (0-0) /100 WBC APTT 51.8 H (22.0-30.0) sec Sodium (137-145) mmol/L Chloride (98-107) mmol/L Carbon Dioxide (22-30) mmol/L BUN (7-17) mg/dL Creatinine (0.52-1.04) mg/dL Glucose (74-99) mg/dL POC Glucose (mg/dL) 133 H (75-99) mg/dL Assessment and Plan Plan: 1. Acute on chronic hypoxic respiratory failure, clinically due to pulmonary edema due to acute systolic CHF exacerbation and pneumonia Tinea diuresis antibiotics breathing treatments Weaned off BiPAP Pulmonary toilet 2. A. fib with RVR amiodarone and heparin drip Plan to eventually switch to oral amiodarone and oral antifungal correlation and able to swallow 3. Pneumonia, healthcare associated Bronchoalveolar lavage with MRSA Currently on vancomycin 3. Chronic hypercarbic respiratory failure BiPAP dependent due to COPD and obesity hypoventilation syndrome with history of smoking Maintain the BiPAP 4. CKD stage III acute kidnejy ingury Creatinine has been improving Nephrology following 5. Anemia, normocytic Chronic No obvious signs of bleeding Likely related to anemia of chronic disease and acute illness plus iron deficiency Iron supplementation started 6. Leukocytosis, no fever Blood cultures negative so far Possibly reactive Monitor closely for secondary sepsis or signs of infection 7. Acute on chronic debility bed ridden state, decubs, low albumin, protein calorie malnutrition, failure to thrive Overall, poor prognosis Plan for subacute rehab or LTAC Nutrition consult: Started on TPN; swallowing evaluation pending today
[2018-05-21] MEDS: 1: PARENTERAL ELECTROLYTES 20 ML, MVI, ADULT NO.4 WITH VIT K 10 ML, TRACE (CONC-1ML/DOSE IV SCH ×4 (12:25)
[2018-05-21] MEDS: FAT EMULSION 20% 250 ML IV SCH (12:28)
[2018-05-21 16:11] LABS: Glucose,Whole Blood 159 mg/dL (75-99)
[2018-05-21] MEDS: BISACODYL 10 MG SUPP RECTAL SCH (16:35)
[2018-05-21 20:32] LABS: Glucose,Whole Blood 102 mg/dL (75-99)
--- NOTE | 2018-05-21 21:15 | P.PN ---
Subjective Progress Note Date: 05/21/18 This is a 67-year-old morbidly obese female that came into the emergency center yesterday with shortness of breath and lethargy. Patient apparently has been bedbound for the past 3 weeks due to shortness of breath. Patient has not been eating very much and also had diarrhea. She was treated outpatient with deficit and completed the course and was then placed on antidiarrheal agent. She was admitted [address] [facility] for heart failure. She required intubation in the emergency center. She was also found to have atrial fibrillation with RVR is currently on amiodarone drip. Cardiology is following. Nephrology is also following for acute kidney injury with BUN 44 and creatinine 2.59. Patient presented with leukocytosis but afebrile. Troponins were mildly elevated at 0.046, 0.049, 0.047. Albumin 2.6, TSH 1.550. C. difficile toxin was negative. Urinalysis was cloudy, leukoesterase large, WBC 33 and bacteria rare. Blood issuing no growth at 24 hours and urine culture is in progress. Patient is currently on norepinephrine, Lasix drip, amiodarone drip, heparin drip and sedation. He guarding antibiotics patient is on Azactam and vancomycin. Initial x-ray shows mild cardiomegaly and interstitial prominence. Correlate for heart failure and mild pulmonary vascular congestion. Small to moderate left and trace left pleural effusions with adjacent atelectasis and/or consolidation. Repeat chest x-ray this morning reveals improved aeration of the right upper lung. Haziness of the right hemidiaphragm likely represents a new trace right pleural effusion. Persistent retrocardiac obesity is favored to represent a small pleural effusion and left basilar atelectasis. Overall stable lines and tubes. Echocardiogram reveals EF of 3035%, moderate concentric left ventricular hypertrophy, elderly severely dilated, mild mitral regurgitation, moderate tricuspid regurgitation, moderate pulmonary hypertension. Regarding wounds, patient has stage II decubitus ulcer on the right buttocks, left hip and the shear-type injury to the right hip area there is mild cellulitis to the left pretibial area. Patient's bowel movements are currently soft. 05/14/2018 patient remains intubated sedated and mechanically ventilated but is now with a marked reduction in the amount of vasopressor therapy. Her sedation holiday earlier today was successful. However she had significant secretions on bronchoscopy was performed in large amounts of purulent secretions were suctioned. She is comfortable at this time. 05/15/2018. The patient is now extubated. We'll likely be on BiPAP overnight. Vasopressor therapy has been weaned and has almost completely been discontinued. 05/17/2018 patient extubated but remains BiPAP dependent. She is arousable but not highly interactive. Is complaining of some itchy skin other than this has no improvement. Patient remains extubated at 05/18/2018 but is BiPAP dependent however delivered oxygen level is now down to 24% and she is comfortable. Her lower extremity edema is improving. TPN is started no plans for tracheostomy or PEG tube 05/21/2018 patient has had a bit of a better day. She was on BiPAP for over 5 hours and tolerated it relatively well. His follow study was performed showing evidence the ability to swallow and she was given some medications orally with some applesauce. Although she is still quite short of breath doing well with BiPAP this evening without other new acute complaints. Objective - Vital Signs Vital signs: Vital Signs Temp 96.9 F L 05/21/18 20:00 Pulse 91 05/21/18 21:00 Resp 12 05/21/18 21:00 BP 88/53 05/14/18 22:00 Pulse Ox 95 05/21/18 21:00 Intake & Output 05/21/18 05/21/18 05/22/18 06:59 18:59 06:59 Intake Total 2555.453 1717.973 289.4 Output Total 745 725 125 Balance 1810.453 992.973 164.4 Weight 114.1 kg 114.1 kg Intake: IV 1280 1151.6 289.4 Amiodarone 450 mg In 630 306.0 16.6 Dextrose 5% in Water 250 ml @ 0.5 MG/MIN 16.66 mls /hr IV .Q15H1M [facility] Rx#: [id number] Fat Emulsion 20% 250 ml @ 80 145.6 62.8 20.833 mls/hr IV DAILY@ 1200 [facility] Rx#:[id number] Parenteral Electrolytes 70 700 210 20 ml In Amino Acid 5%- D15w 1,000 ml @ 70 mls/hr IV .BY DURATION [facility] Rx#: [id number] Vancomycin 1,750 mg In 500 Sodium Chloride 0.9% 500 ml @ 167 mls/hr IVPB ONCE ONE Rx#:[id number] Intake, IV Titration 1275.453 566.373 Amount Amiodarone 450 mg In 255.453 201.586 Dextrose 5% in Water 250 ml @ 0.5 MG/MIN 16.66 mls /hr IV .Q15H1M [facility] Rx#: [id number] Heparin Sod,Pork in 0.45% 364.787 NaCl 25,000 unit In 0.45 % NaCl 1 500ml.bag @ 9.8 UNITS/KG/HR 21.91 mls/hr IV .[id number] [facility] Rx#: [id number] Parenteral Electrolytes 1020 20 ml In Amino Acid 5%- D15w 1,000 ml @ 70 mls/hr IV .BY DURATION [facility] Rx#: [id number] Output: Urine 745 725 125 Other: Voiding Method Indwelling Catheter Indwelling Catheter ABP, PAP, CO, CI - Last Documented Arterial Blood Pressure 93/57 - Exam Gen: This is a morbidly obese 67-year-old female. She is now extubated and able to follow simple commands She appears to be comfortable with the BiPAP in place. HEENT: Head is atraumatic, normocephalic. Pupils equal, round. Sclerae is anicteric. Conjunctiva slightly pale. Mucous members of the mouth are dry. Oral gastric tube and ET tube in place. NECK: Supple. No JVD. No lymphadenopathy. No thyromegaly. LUNGS: Diminished bilaterally. No intercostal retractions. HEART: Irregularly irregular rate and rhythm. No murmur. ABDOMEN: Currently obese. Soft. Bowel sounds are present. No masses. No tenderness. No significant redness under her abdominal fold or breast. InterDry and nystatin powder in place. EXTREMITIES: Jared bilateral pedal edema. Waffle-type boots in place. There is erythema to the left pretibial area. NEUROLOGICAL: She is extubated and no longer sedated. Seems to be comfortable. Itching improved - Labs CBC & Chem 7: 05/21/18 04:51 05/21/18 04:51 Labs: Abnormal Lab Results - Last 24 Hours (Table) 05/21/18 05/21/18 05/21/18 Range/Units 00:11 04:47 04:51 WBC (3.8-10.6) k/uL RBC (3.80-5.40) m/uL Hgb (11.4-16.0) gm/dL Hct (34.0-46.0) % MCHC (31.0-37.0) g/dL RDW (11.5-15.5) % Neutrophils # (Manual) (1.3-7.7) k/uL Basophils # (Manual) (0-0.2) k/uL Metamyelocytes # (Man) (0) k/uL Myelocytes # (Manual) (0) k/uL Nucleated RBCs (0-0) /100 WBC APTT (22.0-30.0) sec Sodium 131 L (137-145) mmol/L Chloride 93 L (98-107) mmol/L Carbon Dioxide 35 H (22-30) mmol/L BUN 54 H (7-17) mg/dL Creatinine 1.30 H (0.52-1.04) mg/dL Glucose 143 H (74-99) mg/dL POC Glucose (mg/dL) 122 H 153 H (75-99) mg/dL 05/21/18 05/21/18 05/21/18 Range/Units 04:51 04:51 08:52 WBC 23.8 H (3.8-10.6) k/uL RBC 3.03 L (3.80-5.40) m/uL Hgb 7.8 L (11.4-16.0) gm/dL Hct 25.8 L (34.0-46.0) % MCHC 30.4 L (31.0-37.0) g/dL RDW 19.2 H (11.5-15.5) % Neutrophils # (Manual) 19.50 H (1.3-7.7) k/uL Basophils # (Manual) 0.24 H (0-0.2) k/uL Metamyelocytes # (Man) 1.90 H (0) k/uL Myelocytes # (Manual) 0.71 H (0) k/uL Nucleated RBCs 1 H (0-0) /100 WBC APTT 51.8 H (22.0-30.0) sec Sodium (137-145) mmol/L Chloride (98-107) mmol/L Carbon Dioxide (22-30) mmol/L BUN (7-17) mg/dL Creatinine (0.52-1.04) mg/dL Glucose (74-99) mg/dL POC Glucose (mg/dL) 133 H (75-99) mg/dL 05/21/18 05/21/18 05/21/18 Range/Units 11:52 16:10 20:30 WBC (3.8-10.6) k/uL RBC (3.80-5.40) m/uL Hgb (11.4-16.0) gm/dL Hct (34.0-46.0) % MCHC (31.0-37.0) g/dL RDW (11.5-15.5) % Neutrophils # (Manual) (1.3-7.7) k/uL Basophils # (Manual) (0-0.2) k/uL Metamyelocytes # (Man) (0) k/uL Myelocytes # (Manual) (0) k/uL Nucleated RBCs (0-0) /100 WBC APTT (22.0-30.0) sec Sodium (137-145) mmol/L Chloride (98-107) mmol/L Carbon Dioxide (22-30) mmol/L BUN (7-17) mg/dL Creatinine (0.52-1.04) mg/dL Glucose (74-99) mg/dL POC Glucose (mg/dL) 108 H 159 H 102 H (75-99) mg/dL Laboratory Results WBC 23.8 k/uL (3.8-10.6) H 05/21/18 04:51 RBC 3.03 m/uL (3.80-5.40) L 05/21/18 04:51 Hgb 7.8 gm/dL (11.4-16.0) L 05/21/18 04:51 Hct 25.8 % (34.0-46.0) L 05/21/18 04:51 MCV 85.3 fL (80.0-100.0) 05/21/18 04:51 MCH 25.9 pg (25.0-35.0) 05/21/18 04:51 MCHC 30.4 g/dL (31.0-37.0) L 05/21/18 04:51 RDW 19.2 % (11.5-15.5) H 05/21/18 04:51 Plt Count 302 k/uL (150-450) 05/21/18 04:51 Neutrophils % 87 % 05/16/18 03:45 Neutrophils % (Manual) 74 % 05/21/18 04:51 Band Neutrophils % 8 % 05/21/18 04:51 Lymphocytes % 6 % 05/16/18 03:45 Lymphocytes % (Manual) 5 % 05/21/18 04:51 Monocytes % 6 % 05/16/18 03:45 Monocytes % (Manual) 3 % 05/21/18 04:51 Eosinophils % 0 % 05/16/18 03:45 Basophils % 0 % 05/16/18 03:45 Basophils % (Manual) 1 % 05/21/18 04:51 Metamyelocytes % 8 % 05/21/18 04:51 Myelocytes % 3 % 05/21/18 04:51 Neutrophils # 13.3 k/uL (1.3-7.7) H 05/16/18 03:45 Neutrophils # (Manual) 19.50 k/uL (1.3-7.7) H 05/21/18 04:51 Lymphocytes # 0.9 k/uL (1.0-4.8) L 05/16/18 03:45 Lymphocytes # (Manual) 1.19 k/uL (1.0-4.8) 05/21/18 04:51 Monocytes # 0.9 k/uL (0-1.0) 05/16/18 03:45 Monocytes # (Manual) 0.71 k/uL (0-1.0) 05/21/18 04:51 Eosinophils # 0.1 k/uL (0-0.7) 05/16/18 03:45 Basophils # 0.1 k/uL (0-0.2) 05/16/18 03:45 Basophils # (Manual) 0.24 k/uL (0-0.2) H 05/21/18 04:51 Metamyelocytes # (Man) 1.90 k/uL (0) H 05/21/18 04:51 Myelocytes # (Manual) 0.71 k/uL (0) H 05/21/18 04:51 Nucleated RBCs 1 /100 WBC (0-0) H 05/21/18 04:51 Manual Slide Review Performed 05/21/18 04:51 Polychromasia Present 05/21/18 04:51 Hypochromasia Marked 05/21/18 04:51 Poikilocytosis Slight 05/21/18 04:51 Anisocytosis Slight 05/21/18 04:51 PT 11.2 sec (9.0-12.0) 05/11/18 15:00 INR 1.2 (<1.2) H 05/11/18 15:00 APTT 51.8 sec (22.0-30.0) H 05/21/18 04:51 D-Dimer 0.57 mg/L FEU (<0.60) 05/11/18 15:00 Sample Site kalie 05/16/18 09:55 ABG pH 7.33 (7.35-7.45) L 05/16/18 09:55 ABG pCO2 69 mmHg (35-45) H 05/16/18 09:55 ABG pO2 74 mmHg (83-108) L 05/16/18 09:55 ABG HCO3 35 mmol/L (21-25) H 05/16/18 09:55 ABG Total CO2 38 mmol/L (19-24) H 05/15/18 04:26 ABG O2 Saturation 94.0 % (94-97) 05/16/18 09:55 ABG Base Excess 8.8 mmol/L 05/16/18 09:55 Juancarlos Test Yes 05/16/18 09:55 FiO2 40 % 05/16/18 09:55 Sodium 131 mmol/L (137-145) L 05/21/18 04:51 Potassium 4.2 mmol/L (3.5-5.1) 05/21/18 04:51 Chloride 93 mmol/L (98-107) L 05/21/18 04:51 Carbon Dioxide 35 mmol/L (22-30) H 05/21/18 04:51 Anion Gap 3 mmol/L 05/21/18 04:51 BUN 54 mg/dL (7-17) H 05/21/18 04:51 Creatinine 1.30 mg/dL (0.52-1.04) H 05/21/18 04:51 Est GFR (CKD-EPI)AfAm 50 (>60 ml/min/1.73 sqM) 05/21/18 04:51 Est GFR (CKD-EPI)NonAf 43 (>60 ml/min/1.73 sqM) 05/21/18 04:51 Glucose 143 mg/dL (74-99) H 05/21/18 04:51 POC Glucose (mg/dL) 102 mg/dL (75-99) H 05/21/18 20:30 POC Glu [employer] Alvino Asher 05/21/18 20:30 Plasma Lactic Acid Terence 1.9 mmol/L (0.7-2.0) 05/11/18 15:00 Calcium 9.2 mg/dL (8.4-10.2) 05/21/18 04:51 Ionized Calcium Marcelina 4.6 mg/dL (4.5-5.3) 05/19/18 05:15 Phosphorus 3.2 mg/dL (2.5-4.5) 05/21/18 04:51 Magnesium 2.0 mg/dL (1.6-2.3) 05/21/18 04:51 Iron 13 ug/dL (50-170) L 05/16/18 03:45 TIBC 199 ug/dL (228-460) L 05/16/18 03:45 Iron Saturation 6.53 (12.00-45.00) L 05/16/18 03:45 Ferritin 79.5 ng/mL (10.0-291.0) 05/16/18 03:45 Total Bilirubin 0.4 mg/dL (0.2-1.3) 05/11/18 15:00 AST 16 U/L (14-36) 05/11/18 15:00 ALT 30 U/L (9-52) 05/11/18 15:00 Alkaline Phosphatase 128 U/L (38-126) H 05/11/18 15:00 Total Creatine Kinase 40 U/L (30-135) 05/11/18 15:00 CK-MB (CK-2) 1.2 ng/mL (0.0-2.4) 05/11/18 15:00 CK-MB (CK-2) Rel Index 3.0 05/11/18 15:00 Troponin I 0.047 ng/mL (0.000-0.034) H* 05/12/18 03:06 NT-Pro-B Natriuret Pep 5490 pg/mL 05/11/18 15:00 Total Protein 4.9 g/dL (6.3-8.2) L 05/11/18 15:00 Albumin 2.6 g/dL (3.5-5.0) L 05/11/18 15:00 Triglycerides 123 mg/dL (<150) 05/19/18 05:15 TSH 3.890 mIU/L (0.465-4.680) 05/18/18 04:10 Cortisol 11 ug/dL 05/15/18 04:40 Urine Color Yellow 05/11/18 23:45 Urine Appearance Cloudy (Clear) H 05/11/18 23:45 Urine pH 5.0 (5.0-8.0) 05/11/18 23:45 Ur Specific [place] 1.012 (1.001-1.035) 05/11/18 23:45 Urine Protein Negative (Negative) 05/11/18 23:45 Urine Glucose (UA) Negative (Negative) 05/11/18 23:45 Urine Ketones Negative (Negative) 05/11/18 23:45 Urine Blood Negative (Negative) 05/11/18 23:45 Urine Nitrite Negative (Negative) 05/11/18 23:45 Urine Bilirubin Negative (Negative) 05/11/18 23:45 Urine Urobilinogen <2.0 mg/dL (<2.0) 05/11/18 23:45 Ur Leukocyte Esterase Large (Negative) H 05/11/18 23:45 Urine RBC 2 /hpf (0-5) 05/11/18 23:45 Urine WBC 33 /hpf (0-5) H 05/11/18 23:45 Ur Squamous Epith Cells <1 /hpf (0-4) 05/11/18 23:45 Amorphous Sediment Rare /hpf (None) H 05/11/18 23:45 Urine Bacteria Rare /hpf (None) H 05/11/18 23:45 Hyaline Casts 49 /lpf (0-2) H 05/11/18 23:45 Urine Mucus Rare /hpf (None) H 05/11/18 23:45 Random Vancomycin 20.5 ug/mL 05/21/18 04:51 C. difficile (EIA) Intrp Negative (Negative) 05/12/18 08:53 Virus Source See Below 05/14/18 10:05 Viral Test See Below 05/14/18 10:05 Virus Analysis Interp See Below 05/14/18 10:05 Microbiology 05/11/18 15:00 Blood Blood Culture - Final No Growth after 144 hours 05/14/18 10:05 Bronchial Washings - Left Gram Stain - Final 05/14/18 10:05 Bronchial Washings - Left Bronchial Washings Culture - Final Methicillin resist S. aureus 05/14/18 10:05 Bronchial Washings - Left Acid Fast Bacilli Smear - Final 05/14/18 10:05 Bronchial Washings - Left Acid Fast Bacilli Culture - Preliminary 05/14/18 10:05 Bronchial Washings - Left Fungal Culture - Preliminary 05/11/18 23:45 Urine,Catheterized Urine Culture - Final Assessment and Plan (1) Acute respiratory failure Current Visit: Yes Status: Acute Code(s): J96.00 - ACUTE RESPIRATORY FAILURE , UNSP W HYPOXIA OR HYPERCAPNIA SNOMED Code(s): 80909834 (2) COPD (chronic obstructive pulmonary disease) Current Visit: Yes Status: Acute Code(s): J44.9 - CHRONIC OBSTRUCTIVE PULMONARY DISEASE, UNSPECIFIED SNOMED Code(s): 28114146 (3) Pressure ulcer of buttock Narrative/Plan: 67-year-old presents to Hospital with respiratory failure she is now extubated and is showing improvement. The Mepilex dressing is applied to the coccyx wound. The patient's bronchoscopy reveals evidence of staph and antimicrobial therapy is being utilized with Azactam and vancomycin pending further data. She does seem to be improving but appears she will need to be on BiPAP overnight which is unusual for her at home. She does appear to have a poor prognosis. 05/17/2018 patient is extubated but is requiring ongoing BiPAP therapy due to her ongoing respiratory difficulties, she is only on 40% FiO2 but desaturates rapidly when the positive pressure ventilation is removed. Pulmonary critical care is working with the family as to overall plan. Because of the current status she is not able to eat pretty because she is so short of breath and secondly did not pass a bedside swallow test. Her prognosis is poor. MRSA pneumonia and has been found continue vancomycin at this time, cefepime will be discontinued in the morning if no further positive cultures are found. 05/18/2018 patient remains extubated but BiPAP dependent but is on 24% FiO2. Patient is comfortable and there are plans for TPN but no plans for tracheostomy or PEG tube. We'll discontinue cefepime since only MRSA has been grown from her sputum with MRSA pneumonia as the etiology of her current sepsis and respiratory failure. 05/21/2018 patient remains extubated and comfortable on the BiPAP. Did have a 5 hour break today. Her renal failure is improved. She has evidence of MRSA pneumonia. And with her improvement with complete her course of vancomycin therapy with closely monitoring her troughs and monitoring for any further renal toxicity. She the norepinephrine as well as agents that make Zyvox not compatible. Current Visit: Yes Status: Acute Code(s): L89.309 - PRESSURE ULCER OF UNSPECIFIED BUTTOCK, UNSPECIFIED STAGE SNOMED Code(s): 227779292
[2018-05-22 00:17] LABS: ABG Base Excess 11.5 mmol/L; ABG HCO3 37 mmol/L (21-25); ABG PCO2 64 mmHg (35-45); ABG PH 7.37 (7.35-7.45); ABG PO2 61 mmHg (83-108); ABG TCO2 39 mmol/L (19-24)
[2018-05-22] MEDS ORDERED: LORazepam 2 MG/ML INJ IV STA (00:17)
[2018-05-22 00:37] LABS: Glucose,Whole Blood 142 mg/dL (75-99)
[2018-05-22] MEDS: INSULIN ASPART 100 UNIT/ML 1 ML 10 ML VIAL SQ SCH ×6 (00:56→19:49)
[2018-05-22] MEDS: IPRATROPIUM-ALBUTEROL 3 ML NEB INHALATION SCH ×6 (03:13→23:02)
[2018-05-22 04:54] LABS: ABG Base Excess 10.2 mmol/L; ABG HCO3 36 mmol/L (21-25); ABG Oxygen Saturation 82.2 % (94-97); ABG PH 7.32 (7.35-7.45); ABG PO2 49 mmHg (83-108); ABG TCO2 39 mmol/L (19-24)
[2018-05-22] MEDS ORDERED: ROCURONIUM BROMIDE 10 MG/ML 10 ML VIAL IV ONE (05:00)
[2018-05-22] MEDS ORDERED: PHENYLEPHRINE 10 MG/ML VIAL ONE (05:00)
[2018-05-22] MEDS ORDERED: PROPOFOL 10 MG/ML 20 ML VIAL IV ONE (05:00)
[2018-05-22] MEDS ORDERED: PROPOFOL 100 ML IV ONE (05:04)
[2018-05-22] MEDS ORDERED: NOREPINEPHRIN 4 MG-0.9% NS PMX 4 MG/250 ML ML IV ONE (05:12)
--- NOTE | 2018-05-22 05:21 | XR ---
EXAM: XR Chest, 1 View CLINICAL HISTORY: Shortness of breath TECHNIQUE: Frontal view of the chest. COMPARISON: May 21, 2018. FINDINGS: Again noted is enlarged cardiac silhouette. Interval increase in interstitial lung markings. Persistent bilateral lower lobe infiltrates and small bilateral pleural effusions. Stable right-sided central venous catheter. IMPRESSION: Increasing vascular congestion in comparison to prior. Stable enlarged cardiac silhouette. Bilateral lower lobe infiltrates/aspiration and small pleural effusions, little changed.
[2018-05-22] MEDS: PROPOFOL 1,000 MG in EMPTY BAG 1 BAG IV SCH ×3 (05:25→18:20)
[2018-05-22 05:44] LABS: Glucose,Whole Blood 113 mg/dL (75-99)
[2018-05-22 05:52] LABS: ABG Base Excess 9.5 mmol/L; ABG HCO3 36 mmol/L (21-25); ABG PH 7.31 (7.35-7.45); ABG PO2 377 mmHg (83-108); ABG TCO2 38 mmol/L (19-24)
[2018-05-22 06:15] LABS: Anisocytosis Slight; HCT 28.1 % (34.0-46.0); HGB 8.1 gm/dL (11.4-16.0); Hypochromasia Marked; MCH 24.9 pg (25.0-35.0); MCHC 28.9 g/dL (31.0-37.0); Mean Platelet Volume 8.2; Platelet Count 350 k/uL (150-450); Poikilocytosis Slight; RBC 3.26 m/uL (3.80-5.40); RDW 19.5 % (11.5-15.5)
[2018-05-22 06:37] LABS: Calcium 9.5 mg/dL (8.4-10.2); Phosphorus 3.8 mg/dL (2.5-4.5); Potassium 4.3 mmol/L (3.5-5.1)
[2018-05-22 06:44] LABS: Band Neutrophils % 3 %; Myelocytes % 6 %; Neutrophils % (M) 79 %; Nucleated Red Blood Cells 2 /100 WBC (0-0); Total Cells Counted 200
[2018-05-22 06:45] LABS: Lymphocytes # (M) 1.78 k/uL (1.0-4.8); Monocytes # (M) 2.08 k/uL (0-1.0); Myelocytes # (M) 1.78 k/uL (0); WBC 29.7 k/uL (3.8-10.6)
[2018-05-22 06:46] LABS: Large Platelets Present
[2018-05-22] MEDS: 1: PARENTERAL ELECTROLYTES 20 ML, MVI, ADULT NO.4 WITH VIT K 10 ML, TRACE (CONC-1ML/DOSE IV SCH ×4 (07:31)
--- NOTE | 2018-05-22 07:32 | XR ---
EXAM: XR Chest, 1 View CLINICAL HISTORY: tube placement TECHNIQUE: Frontal view of the chest. COMPARISON: Correlated with the earlier radiograph. FINDINGS: Interval placement of ET tube with distal tip in the proximal right mainstem bronchus. Interval placement of enteric tube with distal tip terminating below the diaphragm. Remainder of findings are stable since prior. IMPRESSION: Recommend retraction of ET tube by approximately 4 cm. Distal tip of enteric tube terminating below the diaphragm. Remainder stable. [employer] 05/22/18 07:37 Call Nurse ALEXANDRIA Smith on 05/22 07:37 (-04:00)
--- NOTE | 2018-05-22 08:27 | XR ---
EXAMINATION TYPE: XR chest 1V portable DATE OF EXAM: 05/22/2018 HISTORY: verify tube placement. REFERENCE: Previous study dated 05/22/2018. FINDINGS: The patient is ET tube has been withdrawn slightly and is now 1.1 centimeters from the makenzie na. This could be withdrawn further. The NG tube is unchanged. The heart is enlarged. There is bibasilar airspace disease. There is vascular congestion and mild lno ma. IMPRESSION: 1. PATIENT IS ET TUBE CONTINUES TO BE SLIGHTLY LOW-LYING. 2. CARDIOMEGALY. 3. CHANGES CONSISTENT WITH PULMONARY EDEMA. 4. SMALL, BILATERAL EFFUSIONS.
--- NOTE | 2018-05-22 09:14 | P.PN ---
Subjective Progress Note Date: 05/22/18 Principal diagnosis: Respiratory failure Progress note dated 05/19/2018 67-year-old female with a history of acute on chronic hypoxemic and hypercapnic respiratory failure. The patient was extubated a couple days ago to BiPAP therapy and has been pretty much BiPAP dependent since. This morning, we will switch her to nasal O2 and ventilatory mask with the idea of maintaining saturations in the high 80s and low 90s. She also has a history of hypertension. Was on pressors but they have been weaned off. In addition, the patient was thought to have a left lung pneumonia, heart failure, pulmonary hypertension, stage III chronic kidney disease, stage III chronic decubitus ulcerations, morbid obesity, chronic atrial fibrillation, CAD, C. difficile colitis, hypertension, DJD, COPD, and mental status changes. Currently, the patient was on BiPAP with an IPAP of 14 and EPAP of 5 and 24% oxygen. IVs included TPN at 30 mL an hour heparin via weightbase protocol and amiodarone at 1 mg per hour. She still appears somewhat lethargic and somnolent but is slightly better than she was yesterday. Still pretty much has a blank stare on her face. She is still in atrial fibrillation. Progress note dated 05/20/2018 67-year-old female with a history of acute on chronic hypoxemic and hypercapnic respiratory failure. She was extubated a number of days ago and has been pretty much BiPAP dependent since. Currently, her BiPAP settings included a IPAP of 16 and EPAP of 5 with an FiO2 of 24%. She is also getting TPN at 30 mL an hour heparin via weightbase protocol and amiodarone a 0.5 mg/m for her chronic atrial fibrillation and rapid ventricular response. She seems a bit more awake and alert today. Her lower extremity edema is improved. She still in atrial fibrillation. Chest x-ray is consistent with diffuse bilateral infiltrates likely heart failure although pneumonia cannot be excluded. Bronchoscopy and washings from May 14 show methicillin-resistant staph aureus. White count 19.1, hemoglobin 7.7, Macrobid 25.8 and platelet count normal. PTT is 88.1. Sodium 132, potassium 3.7, chloride 92 and CO2 36. BUN and creatinine were 46 and 1.60. I would say since I started seeing her on Thursday, she is about the same or only minimally improved mostly from the mental status picture. She still has a long way to go and is chronically and critically ill at this point. Progress note dated 05/21/2018 67-year-old female with a history of acute on chronic hypoxemic and hypercapnic respiratory failure. She was extubated a number of days ago has been pretty much BiPAP dependent since. Yesterday she spent about an hour and half off the BiPAP device on nasal cannula. She did okay. Currently, she is on 4 L by nasal cannula. Her BiPAP settings of 16 and 5 and 30% FiO2. She currently is on amiodarone appointment 5 mg/m heparin via weightbase protocol TPN at 70 mL an hour and lipids today at noon. Overall situation is about the same as it has been this entire week. Her mental status is not really improved all that much. She does respond to verbal stimulation. She seems sleepy and lethargic most of the time. Chest x-ray today shows stable findings of chronic parenchymal changes and cardiomegaly with small left pleural effusion. There are some bilateral and basilar infiltrates. Progress note dated 05/22/2018 A 67-year-old female with a history of acute on chronic hypoxemic and hypercapnic respiratory failure. She was previously intubated and subsequently extubated and has been pretty much BiPAP dependent since. Unfortunately, early this morning at about 5 AM, she developed increasing respiratory distress with increasing respiratory rate hypoxemic respiratory failure with low saturations and required reintubation. Currently, she is on the volume assist control mode , with a rate of 20, tidal volume 400, FiO2 40% and a PEEP of 5. Arterial blood gases on the same settings but 100%, show a PaO2 of 377 a PaCO2 of 71 and a pH of 7.31. The patient's currently on total parenteral nutrition at 70 mL an hour. This will be cut in half and eventually the patient will be transitioned over to enteral nutrition. Heparin is at weightbase protocol, amiodarone is a 0.5 mg/m and norepinephrine to 6 mcg/m. She is on propofol at 35 mics per kilogram per minute. Chest x-rays consistent with bilateral effusions and fluid overload. Endotracheal tube is in the right mainstem. Objective - Vital Signs Vital signs: Vital Signs Temp 97.4 F L 05/22/18 05:00 Pulse 90 08/18/18 08:00 Resp 16 05/22/18 07:00 BP 88/53 05/14/18 22:00 Pulse Ox 93 L 05/22/18 07:00 Intake & Output 05/21/18 05/22/18 05/22/18 18:59 06:59 18:59 Intake Total 1717.973 961.4 84.478 Output Total 725 565 30 Balance 992.973 396.4 54.478 Weight 114.1 kg 115 kg Intake: IV 1151.6 961.4 70 Amiodarone 450 mg In 306.0 16.6 Dextrose 5% in Water 250 ml @ 0.5 MG/MIN 16.66 mls /hr IV .Q15H1M [facility] Rx#: [id number] Fat Emulsion 20% 250 ml @ 145.6 104.8 20.833 mls/hr IV DAILY@ 1200 [facility] Rx#:[id number] Parenteral Electrolytes 700 840 70 20 ml In Amino Acid 5%- D15w 1,000 ml @ 70 mls/hr IV .BY DURATION [facility] Rx#: [id number] Intake, IV Titration 566.373 14.478 Amount Amiodarone 450 mg In 201.586 Dextrose 5% in Water 250 ml @ 0.5 MG/MIN 16.66 mls /hr IV .Q15H1M [facility] Rx#: [id number] Heparin Sod,Pork in 0.45% 364.787 NaCl 25,000 unit In 0.45 % NaCl 1 500ml.bag @ 9.8 UNITS/KG/HR 21.91 mls/hr IV .[id number] [facility] Rx#: [id number] Propofol 1,000 mg In 14.478 Empty Bag 1 bag @ Titrate IV .Q0M [facility] Rx#: [id number] Output: Urine 725 565 30 Other: Voiding Method Indwelling Catheter Indwelling Catheter ABP, PAP, CO, CI - Last Documented Arterial Blood Pressure 113/63 - Exam The patient appears in no acute distress, she is sedated, she has an orally placed endotracheal tube and NG tube HEENT examination is grossly unremarkable. Mucous membranes are moist. Neck supple. Full range of motion. No adenopathy thyromegaly or neck vein distention. Cardiovascular examination reveals a irregular rhythm and rate. S1-S2 normal. No S3 or S4. Heart sounds distant. Lungs reveal bilateral coarse rhonchi. Some bibasilar crackles noted. Breath sounds equal bilaterally. No wheezes appreciated. Lung sounds are much more rhonchorous today than they were yesterday. Abdomen soft bowel sounds are heard. No masses or tenderness. Extremities are intact. Bilateral lower extremity edema noted. It is pitting. No cyanosis or clubbing.. Skin is without rash or lesion. Neurologic examination is difficult to assess. - Labs CBC & Chem 7: 05/22/18 06:05 05/22/18 06:05 Labs: Abnormal Lab Results - Last 24 Hours (Table) 05/21/18 05/21/18 05/21/18 Range/Units 11:52 16:10 20:30 WBC (3.8-10.6) k/uL RBC (3.80-5.40) m/uL Hgb (11.4-16.0) gm/dL Hct (34.0-46.0) % MCH (25.0-35.0) pg MCHC (31.0-37.0) g/dL RDW (11.5-15.5) % Neutrophils # (Manual) (1.3-7.7) k/uL Monocytes # (Manual) (0-1.0) k/uL Myelocytes # (Manual) (0) k/uL Nucleated RBCs (0-0) /100 WBC APTT (22.0-30.0) sec ABG pH (7.35-7.45) ABG pCO2 (35-45) mmHg ABG pO2 (83-108) mmHg ABG HCO3 (21-25) mmol/L ABG Total CO2 (19-24) mmol/L ABG O2 Saturation (94-97) % Sodium (137-145) mmol/L Chloride (98-107) mmol/L Carbon Dioxide (22-30) mmol/L BUN (7-17) mg/dL Creatinine (0.52-1.04) mg/dL Glucose (74-99) mg/dL POC Glucose (mg/dL) 108 H 159 H 102 H (75-99) mg/dL 05/21/18 05/22/18 05/22/18 Range/Units 23:20 00:34 04:55 WBC (3.8-10.6) k/uL RBC (3.80-5.40) m/uL Hgb (11.4-16.0) gm/dL Hct (34.0-46.0) % MCH (25.0-35.0) pg MCHC (31.0-37.0) g/dL RDW (11.5-15.5) % Neutrophils # (Manual) (1.3-7.7) k/uL Monocytes # (Manual) (0-1.0) k/uL Myelocytes # (Manual) (0) k/uL Nucleated RBCs (0-0) /100 WBC APTT (22.0-30.0) sec ABG pH 7.32 L (7.35-7.45) ABG pCO2 64 H 70 H* (35-45) mmHg ABG pO2 61 L 49 L (83-108) mmHg ABG HCO3 37 H 36 H (21-25) mmol/L ABG Total CO2 39 H 39 H (19-24) mmol/L ABG O2 Saturation 92.0 L 82.2 L (94-97) % Sodium (137-145) mmol/L Chloride (98-107) mmol/L Carbon Dioxide (22-30) mmol/L BUN (7-17) mg/dL Creatinine (0.52-1.04) mg/dL Glucose (74-99) mg/dL POC Glucose (mg/dL) 142 H (75-99) mg/dL 05/22/18 05/22/18 05/22/18 Range/Units 05:42 05:48 06:05 WBC (3.8-10.6) k/uL RBC (3.80-5.40) m/uL Hgb (11.4-16.0) gm/dL Hct (34.0-46.0) % MCH (25.0-35.0) pg MCHC (31.0-37.0) g/dL RDW (11.5-15.5) % Neutrophils # (Manual) (1.3-7.7) k/uL Monocytes # (Manual) (0-1.0) k/uL Myelocytes # (Manual) (0) k/uL Nucleated RBCs (0-0) /100 WBC APTT (22.0-30.0) sec ABG pH 7.31 L (7.35-7.45) ABG pCO2 71 H* (35-45) mmHg ABG pO2 377 H (83-108) mmHg ABG HCO3 36 H (21-25) mmol/L ABG Total CO2 38 H (19-24) mmol/L ABG O2 Saturation 100.0 H (94-97) % Sodium 131 L (137-145) mmol/L Chloride 93 L (98-107) mmol/L Carbon Dioxide 35 H (22-30) mmol/L BUN 60 H (7-17) mg/dL Creatinine 1.30 H (0.52-1.04) mg/dL Glucose 109 H (74-99) mg/dL POC Glucose (mg/dL) 113 H (75-99) mg/dL 05/22/18 05/22/18 Range/Units 06:05 06:05 WBC 29.7 H* (3.8-10.6) k/uL RBC 3.26 L (3.80-5.40) m/uL Hgb 8.1 L (11.4-16.0) gm/dL Hct 28.1 L (34.0-46.0) % MCH 24.9 L (25.0-35.0) pg MCHC 28.9 L (31.0-37.0) g/dL RDW 19.5 H (11.5-15.5) % Neutrophils # (Manual) 24.30 H (1.3-7.7) k/uL Monocytes # (Manual) 2.08 H (0-1.0) k/uL Myelocytes # (Manual) 1.78 H (0) k/uL Nucleated RBCs 2 H (0-0) /100 WBC APTT 70.0 H (22.0-30.0) sec ABG pH (7.35-7.45) ABG pCO2 (35-45) mmHg ABG pO2 (83-108) mmHg ABG HCO3 (21-25) mmol/L ABG Total CO2 (19-24) mmol/L ABG O2 Saturation (94-97) % Sodium (137-145) mmol/L Chloride (98-107) mmol/L Carbon Dioxide (22-30) mmol/L BUN (7-17) mg/dL Creatinine (0.52-1.04) mg/dL Glucose (74-99) mg/dL POC Glucose (mg/dL) (75-99) mg/dL Assessment and Plan Assessment: Assessment Acute on chronic hypoxemic and hypercapnic respiratory failure, status post intubation with mechanical ventilation and extubation to BiPAP therapy Recurrent celia respiratory failure with profound hypoxemia, requiring reintubation on 05/22/2018 at 5:15 AM Mental status changes, which may relate to ICU delirium and/or hypercapnic respiratory failure Methicillin-resistant staph aureus Pneumonia, status post BAL with evidence of staphylococcal species. Patient currently on antibiotic therapy Hypotension, resolved, patient previously on pressors Systolic heart failure with an ejection fraction of 30-35% Moderate pulmonary hypertension Stage III chronic kidney disease Stage III chronic decubitus ulcerations Morbid obesity Chronic atrial fibrillation CAD C. difficile colitis Essential hypertension DJD COPD Rule out pickwickian syndrome Plan: Plan dated 05/19/2018 I will attempt to wean the patient off the BiPAP and onto nasal O2 and/or a Venturi mask. We'll continue the antibiotics for the methicillin-resistant staph aureus pneumonia. The patient is currently being nourished with TPN at 30 mL an hour. She cannot take anything by mouth. She remains on IV heparin for her atrial fibrillation and amiodarone at 1 mg per hour. Chest x-ray will be reviewed. Prognosis is poor. My nurse practitioner had a long talk with the family yesterday. I will discuss the case with the hospital doctor today. Additional recommendations and suggestions are forthcoming. Critical-care time 34 minutes Plan dated 05/20/2018 We will continue with the BiPAP at 16 and 5 and 24%. We continue with the amiodarone at 0.5 mg/m heparin fibrillation and rapid ventricular response and nourishment via TPN. She cannot take anything by mouth. Chest x-rays consistent with diffuse bilateral infiltrates. Mental status is only minimally improved. Labs x-rays a medications are reviewed. No additional positive microbiology is seen. Prognosis is guarded. I did speak to the hospitalist yesterday. He will continue updating the family as it relates to the overall condition of this patient. Additional recommendations and suggestions are forthcoming. Critical care time 32 minutes Plan dated 05/21/2018 Today's chest x-ray is about the same as it was for the last couple of days. This been no major changes. White count is 23.8 hemoglobin 7.8 hematocrit 25.8 and platelet count is normal. Sodium 131, potassium 4.2, chloride is 93, and CO2 35. BUN and creatinine were 54 and 1.30. The only positive microbiology was from May 14, [place], which showed methicillin-resistant staph aureus. This has been treated with vancomycin. Labs x-rays a medications are all reviewed. The patient remains on amiodarone for atrial fibrillation. Prognosis is guarded. There is been little improvement over the last 5 days in my opinion. Critical care time 32 minutes Plan dated 05/22/2018 Unfortunately, the patient's respiratory status declined significantly early this morning and she required intubation and mechanical ventilation. We've adjusted her ventilator appropriately. She remains on sedation. She is requiring norepinephrine at 6 mcg/m she remains on amiodarone. She also remains on IV heparin. We will cut her TPN and half and transition her to enteral nutrition. She may benefit from tracheostomy and PEG tube if that'll is what the family wishes. We talked to the family all along about CODE STATUS and they've been consistent on full cardiopulmonary resuscitation. The patient really has made no progress throughout the week. Chest x-ray labs and medications are reviewed. White count is 29.7, hemoglobin 8.1, hematocrit 28.1 and platelet count 350,000. Sodium 131 potassium 4.3 chloride 93 CO2 35 with a BUN and creatinine of 60 and 1.30. Prognosis is poor in my opinion Critical care time 36 minutes Time with Patient: Greater than 30
[2018-05-22 09:53] LABS: Glucose,Whole Blood 179 mg/dL (75-99)
[2018-05-22] MEDS: BISACODYL 10 MG SUPP RECTAL SCH (09:53)
[2018-05-22] MEDS: ASPIRIN 325 MG TAB PO SCH (10:00)
[2018-05-22] MEDS: CHLORHEXIDINE GLUCONATE 15 ML CUP MUCOUS MEM SCH ×2 (10:00→21:00)
[2018-05-22] MEDS: FUROSEMIDE 10 MG/ML 4 ML VIAL IV SCH ×2 (10:00→21:00)
[2018-05-22] MEDS: PANTOPRAZOLE 40 MG/10 ML VIAL IV SCH (10:01)
[2018-05-22] MEDS: SODIUM FERRIC GLUCONAT-SUCROSE 125 MG in SODIUM CHLORIDE 0.9% 100 ML IVPB SCH (10:01)
--- NOTE | 2018-05-22 10:01 | P.PN ---
Subjective Progress Note Date: 05/22/18 Principal diagnosis: This 67-year-old female is followed up with acute kidney injury secondary to prerenal, congestive heart failure atrial fibrillation. Earlier this morning she was reintubated and currently is on levo fed and on Diprivan and. The reason for intubation was she was desaturating. Currently she is obtunded sedated. Levo fed is at, she is in atrial fibrillation. Her urine output is 200 mL for the last 4 hours and 140 mL for the next 4 hours. She is on Lasix 40 mg every 12 Objective - Vital Signs Vital signs: Vital Signs Temp 97.4 F L 05/22/18 05:00 Pulse 90 05/22/18 08:00 Resp 16 05/22/18 07:00 BP 88/53 05/14/18 22:00 Pulse Ox 93 L 05/22/18 07:00 Intake & Output 05/21/18 05/22/18 05/22/18 18:59 06:59 18:59 Intake Total 1717.973 961.4 84.478 Output Total 725 565 30 Balance 992.973 396.4 54.478 Weight 114.1 kg 115 kg Intake: IV 1151.6 961.4 70 Amiodarone 450 mg In 306.0 16.6 Dextrose 5% in Water 250 ml @ 0.5 MG/MIN 16.66 mls /hr IV .Q15H1M [facility] Rx#: [id number] Fat Emulsion 20% 250 ml @ 145.6 104.8 20.833 mls/hr IV DAILY@ 1200 [facility] Rx#:[id number] Parenteral Electrolytes 700 840 70 20 ml In Amino Acid 5%- D15w 1,000 ml @ 70 mls/hr IV .BY DURATION [facility] Rx#: [id number] Intake, IV Titration 566.373 14.478 Amount Amiodarone 450 mg In 201.586 Dextrose 5% in Water 250 ml @ 0.5 MG/MIN 16.66 mls /hr IV .Q15H1M [facility] Rx#: [id number] Heparin Sod,Pork in 0.45% 364.787 NaCl 25,000 unit In 0.45 % NaCl 1 500ml.bag @ 9.8 UNITS/KG/HR 21.91 mls/hr IV .[id number] [facility] Rx#: [id number] Propofol 1,000 mg In 14.478 Empty Bag 1 bag @ Titrate IV .Q0M COUNTS INCLUDE 234 BEDS AT THE [facility] Rx#: [id number] Output: Urine 725 565 30 Other: Voiding Method Indwelling Catheter Indwelling Catheter ABP, PAP, CO, CI - Last Documented Arterial Blood Pressure 113/63 On examination she is sedated obtunded. HEENT exam no JVP noted neck is supple no facial asymmetry Lungs are diminished breath sounds on the vent. But no crepitus were heard Heart sounds are unremarkable except for atrial fibrillation Abdomen is soft nondistended somewhat protuberant though. No masses felt Extremity examination reveals cold to touch and there is moderate edema Neurologically obtunded as mentioned about. - Labs CBC & Chem 7: 05/22/18 06:05 05/22/18 06:05 Labs: Abnormal Lab Results - Last 24 Hours (Table) 05/21/18 05/21/18 05/21/18 Range/Units 11:52 16:10 20:30 WBC (3.8-10.6) k/uL RBC (3.80-5.40) m/uL Hgb (11.4-16.0) gm/dL Hct (34.0-46.0) % MCH (25.0-35.0) pg MCHC (31.0-37.0) g/dL RDW (11.5-15.5) % Neutrophils # (Manual) (1.3-7.7) k/uL Monocytes # (Manual) (0-1.0) k/uL Myelocytes # (Manual) (0) k/uL Nucleated RBCs (0-0) /100 WBC APTT (22.0-30.0) sec ABG pH (7.35-7.45) ABG pCO2 (35-45) mmHg ABG pO2 (83-108) mmHg ABG HCO3 (21-25) mmol/L ABG Total CO2 (19-24) mmol/L ABG O2 Saturation (94-97) % Sodium (137-145) mmol/L Chloride (98-107) mmol/L Carbon Dioxide (22-30) mmol/L BUN (7-17) mg/dL Creatinine (0.52-1.04) mg/dL Glucose (74-99) mg/dL POC Glucose (mg/dL) 108 H 159 H 102 H (75-99) mg/dL 05/21/18 05/22/18 05/22/18 Range/Units 23:20 00:34 04:55 WBC (3.8-10.6) k/uL RBC (3.80-5.40) m/uL Hgb (11.4-16.0) gm/dL Hct (34.0-46.0) % MCH (25.0-35.0) pg MCHC (31.0-37.0) g/dL RDW (11.5-15.5) % Neutrophils # (Manual) (1.3-7.7) k/uL Monocytes # (Manual) (0-1.0) k/uL Myelocytes # (Manual) (0) k/uL Nucleated RBCs (0-0) /100 WBC APTT (22.0-30.0) sec ABG pH 7.32 L (7.35-7.45) ABG pCO2 64 H 70 H* (35-45) mmHg ABG pO2 61 L 49 L (83-108) mmHg ABG HCO3 37 H 36 H (21-25) mmol/L ABG Total CO2 39 H 39 H (19-24) mmol/L ABG O2 Saturation 92.0 L 82.2 L (94-97) % Sodium (137-145) mmol/L Chloride (98-107) mmol/L Carbon Dioxide (22-30) mmol/L BUN (7-17) mg/dL Creatinine (0.52-1.04) mg/dL Glucose (74-99) mg/dL POC Glucose (mg/dL) 142 H (75-99) mg/dL 05/22/18 05/22/18 05/22/18 Range/Units 05:42 05:48 06:05 WBC (3.8-10.6) k/uL RBC (3.80-5.40) m/uL Hgb (11.4-16.0) gm/dL Hct (34.0-46.0) % MCH (25.0-35.0) pg MCHC (31.0-37.0) g/dL RDW (11.5-15.5) % Neutrophils # (Manual) (1.3-7.7) k/uL Monocytes # (Manual) (0-1.0) k/uL Myelocytes # (Manual) (0) k/uL Nucleated RBCs (0-0) /100 WBC APTT (22.0-30.0) sec ABG pH 7.31 L (7.35-7.45) ABG pCO2 71 H* (35-45) mmHg ABG pO2 377 H (83-108) mmHg ABG HCO3 36 H (21-25) mmol/L ABG Total CO2 38 H (19-24) mmol/L ABG O2 Saturation 100.0 H (94-97) % Sodium 131 L (137-145) mmol/L Chloride 93 L (98-107) mmol/L Carbon Dioxide 35 H (22-30) mmol/L BUN 60 H (7-17) mg/dL Creatinine 1.30 H (0.52-1.04) mg/dL Glucose 109 H (74-99) mg/dL POC Glucose (mg/dL) 113 H (75-99) mg/dL 05/22/18 05/22/18 Range/Units 06:05 06:05 WBC 29.7 H* (3.8-10.6) k/uL RBC 3.26 L (3.80-5.40) m/uL Hgb 8.1 L (11.4-16.0) gm/dL Hct 28.1 L (34.0-46.0) % MCH 24.9 L (25.0-35.0) pg MCHC 28.9 L (31.0-37.0) g/dL RDW 19.5 H (11.5-15.5) % Neutrophils # (Manual) 24.30 H (1.3-7.7) k/uL Monocytes # (Manual) 2.08 H (0-1.0) k/uL Myelocytes # (Manual) 1.78 H (0) k/uL Nucleated RBCs 2 H (0-0) /100 WBC APTT 70.0 H (22.0-30.0) sec ABG pH (7.35-7.45) ABG pCO2 (35-45) mmHg ABG pO2 (83-108) mmHg ABG HCO3 (21-25) mmol/L ABG Total CO2 (19-24) mmol/L ABG O2 Saturation (94-97) % Sodium (137-145) mmol/L Chloride (98-107) mmol/L Carbon Dioxide (22-30) mmol/L BUN (7-17) mg/dL Creatinine (0.52-1.04) mg/dL Glucose (74-99) mg/dL POC Glucose (mg/dL) (75-99) mg/dL Microbiology - Last 24 Hours (Table) 05/22/18 05:45 Sputum Culture - Preliminary Sputum Assessment and Plan Assessment: Impression 1. Acute kidney injury with component from cardiorenal syndrome, somewhat fluid overloaded with chest x-ray is suggestive congestive heart failure and edema. 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 Additionally patient is on vancomycin which is adding to her risk of ATN. Currently creatinine down to 1.3 2. Baseline creatinine unknown. 3. Atrial fibrillation on amiodrone. Heart rate controlled at 90s. 4. Moderate edema, Congestive heart failure. 5. Hypo-natremia secondary to volume overload. 6. Mild metabolic acidosis with pH of 7.31 with mostly a respiratory component with a pCO2 of 71, with a compensatory metabolic alkalosis. Recommendation 1. Maintain IV Lasix currently dose of 40 every 12. 2. Avoid nephrotoxic medication including vancomycin unless there is no other choice. 3. Regarding the hyponatremia should improve with diuresis. 4. Maintain antibiotics for possible sepsis and pneumonia 5. Monitor labs closely on a daily basis
[2018-05-22 12:04] LABS: Glucose,Whole Blood 121 mg/dL (75-99)
[2018-05-22] MEDS: HEPARIN SOD,PORK IN 0.45% NACL 25,000 UNIT in 0.45% NACL 1 500ML.BAG IV SCH (12:09)
--- NOTE | 2018-05-22 12:11 | P.PN ---
Subjective Progress Note Date: 05/22/18 Patient condition declined early this morning with worsening respiratory distress and she was reintubated around 5 AM this morning. Patient blood pressure dropped and she is again on norepinephrine to maintain her blood pressure. Patient is continued on amiodarone for rate control with atrial fibrillation and on IV heparin. Patient white count was noted to be significantly high this morning despite of on vancomycin for her MRSA positive pneumonia which was diagnosed with bronchial washing. Care coordinated with infectious disease Dr. Oseguera who recommended discontinuing vancomycin due to possible renal toxicity and changing it to linezolid. Nurses reported no current issues with the patient and this morning also resuscitation status was discussed with the patient but she was confused because of acute respiratory distress so it was then discussed with the family who wishes to continue for resuscitation and then patient was intubated for her respiratory failure. Patient is also been started on total parenteral nutrition as per request from the family. Patient is being closely followed by critical care team cardiology and nephrology along with infectious disease team. Nurses reported no other issues with her. Objective - Vital Signs Vital signs: Vital Signs Temp 98.5 F 05/22/18 09:00 Pulse 100 05/22/18 11:50 Resp 19 05/22/18 11:00 BP 88/53 05/14/18 22:00 Pulse Ox 100 05/22/18 11:00 Intake & Output 05/21/18 05/22/18 05/22/18 18:59 06:59 18:59 Intake Total 1717.973 961.4 416.118 Output Total 725 565 90 Balance 992.973 396.4 326.118 Weight 114.1 kg 115 kg 115 kg Intake: IV 1151.6 961.4 401.64 Amiodarone 450 mg In 306.0 16.6 66.64 Dextrose 5% in Water 250 ml @ 0.5 MG/MIN 16.66 mls /hr IV .Q15H1M [facility] Rx#: [id number] Fat Emulsion 20% 250 ml @ 145.6 104.8 20.833 mls/hr IV DAILY@ 1200 [facility] Rx#:[id number] Parenteral Electrolytes 700 840 210 20 ml In Amino Acid 5%- D15w 1,000 ml @ 70 mls/hr IV .BY DURATION [facility] Rx#: [id number] Sodium Ferric Gluconat- 125 Sucrose 125 mg In Sodium Chloride 0.9% 100 ml @ 100 mls/hr IVPB DAILY [facility] Rx#:[id number] Intake, IV Titration 566.373 14.478 Amount Amiodarone 450 mg In 201.586 Dextrose 5% in Water 250 ml @ 0.5 MG/MIN 16.66 mls /hr IV .Q15H1M [facility] Rx#: [id number] Heparin Sod,Pork in 0.45% 364.787 NaCl 25,000 unit In 0.45 % NaCl 1 500ml.bag @ 9.8 UNITS/KG/HR 21.91 mls/hr IV .[id number] [facility] Rx#: [id number] Propofol 1,000 mg In 14.478 Empty Bag 1 bag @ Titrate IV .Q0M [facility] Rx#: [id number] Output: Urine 725 565 90 Other: Voiding Method Indwelling Catheter Indwelling Catheter Indwelling Catheter ABP, PAP, CO, CI - Last Documented Arterial Blood Pressure 105/64 - Constitutional Constitutional Comment(s): Patient is sedated on vent. General appearance: Present: obese - Neck Details: Central line and the right side. - Respiratory Respiratory: bilateral: CTA (Course breath sounds bilaterally but decreased at the bases.), negative: rhonchi, wheezing - Cardiovascular Rhythm: irregularly irregular Heart sounds: abnormal: S1 (Variable heart sounds.), S2 - Gastrointestinal General gastrointestinal: Present: normal bowel sounds, soft. Absent: distended , tenderness - Neurologic Neurologic Comment(s): Sedated with propofol on full ventilator support - Psychiatric Psychiatric Comment(s): Unable to perform because of the patient current critical condition. - Labs CBC & Chem 7: 05/22/18 06:05 05/22/18 06:05 Labs: Abnormal Lab Results - Last 24 Hours (Table) 05/21/18 05/21/18 05/21/18 Range/Units 16:10 20:30 23:20 WBC (3.8-10.6) k/uL RBC (3.80-5.40) m/uL Hgb (11.4-16.0) gm/dL Hct (34.0-46.0) % MCH (25.0-35.0) pg MCHC (31.0-37.0) g/dL RDW (11.5-15.5) % Neutrophils # (Manual) (1.3-7.7) k/uL Monocytes # (Manual) (0-1.0) k/uL Myelocytes # (Manual) (0) k/uL Nucleated RBCs (0-0) /100 WBC APTT (22.0-30.0) sec ABG pH (7.35-7.45) ABG pCO2 64 H (35-45) mmHg ABG pO2 61 L (83-108) mmHg ABG HCO3 37 H (21-25) mmol/L ABG Total CO2 39 H (19-24) mmol/L ABG O2 Saturation 92.0 L (94-97) % Sodium (137-145) mmol/L Chloride (98-107) mmol/L Carbon Dioxide (22-30) mmol/L BUN (7-17) mg/dL Creatinine (0.52-1.04) mg/dL Glucose (74-99) mg/dL POC Glucose (mg/dL) 159 H 102 H (75-99) mg/dL 05/22/18 05/22/18 05/22/18 Range/Units 00:34 04:55 05:42 WBC (3.8-10.6) k/uL RBC (3.80-5.40) m/uL Hgb (11.4-16.0) gm/dL Hct (34.0-46.0) % MCH (25.0-35.0) pg MCHC (31.0-37.0) g/dL RDW (11.5-15.5) % Neutrophils # (Manual) (1.3-7.7) k/uL Monocytes # (Manual) (0-1.0) k/uL Myelocytes # (Manual) (0) k/uL Nucleated RBCs (0-0) /100 WBC APTT (22.0-30.0) sec ABG pH 7.32 L (7.35-7.45) ABG pCO2 70 H* (35-45) mmHg ABG pO2 49 L (83-108) mmHg ABG HCO3 36 H (21-25) mmol/L ABG Total CO2 39 H (19-24) mmol/L ABG O2 Saturation 82.2 L (94-97) % Sodium (137-145) mmol/L Chloride (98-107) mmol/L Carbon Dioxide (22-30) mmol/L BUN (7-17) mg/dL Creatinine (0.52-1.04) mg/dL Glucose (74-99) mg/dL POC Glucose (mg/dL) 142 H 113 H (75-99) mg/dL 18 18 05/22/18 Range/Units 05:48 06:05 06:05 WBC 29.7 H* (3.8-10.6) k/uL RBC 3.26 L (3.80-5.40) m/uL Hgb 8.1 L (11.4-16.0) gm/dL Hct 28.1 L (34.0-46.0) % MCH 24.9 L (25.0-35.0) pg MCHC 28.9 L (31.0-37.0) g/dL RDW 19.5 H (11.5-15.5) % Neutrophils # (Manual) 24.30 H (1.3-7.7) k/uL Monocytes # (Manual) 2.08 H (0-1.0) k/uL Myelocytes # (Manual) 1.78 H (0) k/uL Nucleated RBCs 2 H (0-0) /100 WBC APTT (22.0-30.0) sec ABG pH 7.31 L (7.35-7.45) ABG pCO2 71 H* (35-45) mmHg ABG pO2 377 H (83-108) mmHg ABG HCO3 36 H (21-25) mmol/L ABG Total CO2 38 H (19-24) mmol/L ABG O2 Saturation 100.0 H (94-97) % Sodium 131 L (137-145) mmol/L Chloride 93 L (98-107) mmol/L Carbon Dioxide 35 H (22-30) mmol/L BUN 60 H (7-17) mg/dL Creatinine 1.30 H (0.52-1.04) mg/dL Glucose 109 H (74-99) mg/dL POC Glucose (mg/dL) (75-99) mg/dL 18 05/22/18 Range/Units 06:05 09:51 WBC (3.8-10.6) k/uL RBC (3.80-5.40) m/uL Hgb (11.4-16.0) gm/dL Hct (34.0-46.0) % MCH (25.0-35.0) pg MCHC (31.0-37.0) g/dL RDW (11.5-15.5) % Neutrophils # (Manual) (1.3-7.7) k/uL Monocytes # (Manual) (0-1.0) k/uL Myelocytes # (Manual) (0) k/uL Nucleated RBCs (0-0) /100 WBC APTT 70.0 H (22.0-30.0) sec ABG pH (7.35-7.45) ABG pCO2 (35-45) mmHg ABG pO2 (83-108) mmHg ABG HCO3 (21-25) mmol/L ABG Total CO2 (19-24) mmol/L ABG O2 Saturation (94-97) % Sodium (137-145) mmol/L Chloride (98-107) mmol/L Carbon Dioxide (22-30) mmol/L BUN (7-17) mg/dL Creatinine (0.52-1.04) mg/dL Glucose (74-99) mg/dL POC Glucose (mg/dL) 179 H (75-99) mg/dL Microbiology - Last 24 Hours (Table) 05/22/18 05:45 Sputum Culture - Preliminary Sputum Assessment and Plan (1) Acute respiratory failure Narrative/Plan: Patient is followed by critical care Dr. Mcmullen and is admitted appreciated. Patient will be in the critical care area until stable, currently patient is on full ventilatory support for respiratory failure along with vasopressors support for hypotension due to sepsis. Current Visit: Yes Status: Acute Priority: High Code(s): J96.00 - ACUTE RESPIRATORY FAILURE, UNSP W HYPOXIA OR HYPERCAPNIA SNOMED Code(s): 22742537 (2) Sepsis Narrative/Plan: Patient white count is worsening despite of being on antibiotic treatment and her respiratory condition also deteriorated requiring reintubation this morning , I will discontinue vancomycin as per recommended by Dr. Oseguera and also that vancomycin level is running high and it may further deteriorated patient's renal function. Patient will be started on linezolid IV and once is stable can be changed to oral to complete the course. Current Visit: Yes Status: Acute Priority: High Code(s): A41.9 - SEPSIS, UNSPECIFIED ORGANISM SNOMED Code(s): 23844452 (3) COPD (chronic obstructive pulmonary disease) Narrative/Plan: Most likely leading to respiratory failure with hypercarbia and hypoxia, continue full ventilator support for now. Current Visit: Yes Status: Acute Priority: High Code(s): J44.9 - CHRONIC OBSTRUCTIVE PULMONARY DISEASE, UNSPECIFIED SNOMED Code(s): 37728180 (4) Chronic renal insufficiency, stage III (moderate) Narrative/Plan: Renal function fairly stable as of now and has not been affected by high vancomycin levels, will discontinue vancomycin and will monitor renal function. Current Visit: Yes Status: Acute Code(s): N18.3 - CHRONIC KIDNEY DISEASE, STAGE 3 (MODERATE) SNOMED Code(s): 871895597 (5) Congestive heart failure Narrative/Plan: Continue IV diuretics as patient is making fair amount of urine for now, if patient shows more signs of fluid overload then we will consider increasing the dose of diuresis. Current Visit: Yes Status: Acute Priority: High Code(s): I50.9 - HEART FAILURE, UNSPECIFIED SNOMED Code(s): 96647120 (6) Rapid atrial fibrillation Narrative/Plan: Patient is on amiodarone with heart rate fairly good controlled, I will continue for now. Patient is being followed by cardiology team and their input appreciated. Current Visit: Yes Status: Acute Code(s): I48.91 - UNSPECIFIED ATRIAL FIBRILLATION SNOMED Code(s): 736340007 Plan: Patient will be kept in the intensive care unit for now until she is extubated and doing well without significant noninvasive positive pressure ventilation support system. Time with Patient: Less than 30
[2018-05-22] MEDS: LINEZOLID 600 MG in DEXTROSE/WATER 1 300ML.BAG IVPB SCH ×2 (13:05→21:00)
--- NOTE | 2018-05-22 13:23 | P.PN ---
Subjective Progress Note Date: 05/22/18 This patient is admitted with atrial fibrillation with rapid ventricular response associated with sepsis. Patient is started on IV amiodarone and switch to by mouth amiodarone. Heart rate is better controlled. We'll continue the same. Patient will be followed as needed Objective - Vital Signs Vital signs: Vital Signs Temp 98.5 F 05/22/18 09:00 Pulse 97 05/22/18 13:00 Resp 19 05/22/18 13:00 BP 88/53 05/14/18 22:00 Pulse Ox 99 05/22/18 13:00 Intake & Output 05/21/18 05/22/18 05/22/18 18:59 06:59 18:59 Intake Total 1717.973 961.4 919.765 Output Total 725 565 135 Balance 992.973 396.4 784.765 Weight 114.1 kg 115 kg 115 kg Intake: IV 1151.6 961.4 434.96 Amiodarone 450 mg In 306.0 16.6 99.96 Dextrose 5% in Water 250 ml @ 0.5 MG/MIN 16.66 mls /hr IV .Q15H1M [facility] Rx#: [id number] Fat Emulsion 20% 250 ml @ 145.6 104.8 20.833 mls/hr IV DAILY@ 1200 [facility] Rx#:[id number] Parenteral Electrolytes 700 840 210 20 ml In Amino Acid 5%- D15w 1,000 ml @ 70 mls/hr IV .BY DURATION [facility] Rx#: [id number] Sodium Ferric Gluconat- 125 Sucrose 125 mg In Sodium Chloride 0.9% 100 ml @ 100 mls/hr IVPB DAILY [facility] Rx#:[id number] Intake, IV Titration 566.373 484.805 Amount Amiodarone 450 mg In 201.586 Dextrose 5% in Water 250 ml @ 0.5 MG/MIN 16.66 mls /hr IV .Q15H1M [facility] Rx#: [id number] Heparin Sod,Pork in 0.45% 364.787 449.952 NaCl 25,000 unit In 0.45 % NaCl 1 500ml.bag @ 9.8 UNITS/KG/HR 21.91 mls/hr IV .[id number] [facility] Rx#: [id number] Norepinephrine 16 mg In 20.375 Dextrose 5% in Water 250 ml @ Titrate IV .Q0M [facility] Rx#:[id number] Propofol 1,000 mg In 14.478 Empty Bag 1 bag @ Titrate IV .Q0M [facility] Rx#: [id number] Output: Urine 725 565 135 Other: Voiding Method Indwelling Catheter Indwelling Catheter Indwelling Catheter ABP, PAP, CO, CI - Last Documented Arterial Blood Pressure 113/56 - Exam GENERAL EXAM: Patient is alert HEENT: Normocephalic. Normal reaction of pupils, equal size, normal range of extraocular motion. No erythema or exudates in the throat. NECK: No masses, no nuchal rigidity. CHEST: No chest wall deformity. LUNGS: Diminished breath sounds HEART: S1 and S2 normal with no audible mumurs or gallops. Regular rhythm, femorals equal on both sides.. ABDOMEN: Soft SKIN: No rashes CENTRAL NERVOUS SYSTEM: No focal deficits. EXTREMITIES: No cyanosis, clubbing or edema. - Labs CBC & Chem 7: 05/22/18 06:05 05/22/18 06:05 Labs: Abnormal Lab Results - Last 24 Hours (Table) 05/21/18 05/21/18 05/21/18 Range/Units 16:10 20:30 23:20 WBC (3.8-10.6) k/uL RBC (3.80-5.40) m/uL Hgb (11.4-16.0) gm/dL Hct (34.0-46.0) % MCH (25.0-35.0) pg MCHC (31.0-37.0) g/dL RDW (11.5-15.5) % Neutrophils # (Manual) (1.3-7.7) k/uL Monocytes # (Manual) (0-1.0) k/uL Myelocytes # (Manual) (0) k/uL Nucleated RBCs (0-0) /100 WBC APTT (22.0-30.0) sec ABG pH (7.35-7.45) ABG pCO2 64 H (35-45) mmHg ABG pO2 61 L (83-108) mmHg ABG HCO3 37 H (21-25) mmol/L ABG Total CO2 39 H (19-24) mmol/L ABG O2 Saturation 92.0 L (94-97) % Sodium (137-145) mmol/L Chloride (98-107) mmol/L Carbon Dioxide (22-30) mmol/L BUN (7-17) mg/dL Creatinine (0.52-1.04) mg/dL Glucose (74-99) mg/dL POC Glucose (mg/dL) 159 H 102 H (75-99) mg/dL 05/22/18 05/22/18 05/22/18 Range/Units 00:34 04:55 05:42 WBC (3.8-10.6) k/uL RBC (3.80-5.40) m/uL Hgb (11.4-16.0) gm/dL Hct (34.0-46.0) % MCH (25.0-35.0) pg MCHC (31.0-37.0) g/dL RDW (11.5-15.5) % Neutrophils # (Manual) (1.3-7.7) k/uL Monocytes # (Manual) (0-1.0) k/uL Myelocytes # (Manual) (0) k/uL Nucleated RBCs (0-0) /100 WBC APTT (22.0-30.0) sec ABG pH 7.32 L (7.35-7.45) ABG pCO2 70 H* (35-45) mmHg ABG pO2 49 L (83-108) mmHg ABG HCO3 36 H (21-25) mmol/L ABG Total CO2 39 H (19-24) mmol/L ABG O2 Saturation 82.2 L (94-97) % Sodium (137-145) mmol/L Chloride (98-107) mmol/L Carbon Dioxide (22-30) mmol/L BUN (7-17) mg/dL Creatinine (0.52-1.04) mg/dL Glucose (74-99) mg/dL POC Glucose (mg/dL) 142 H 113 H (75-99) mg/dL 05/22/1818 05/22/18 Range/Units 05:48 06:05 06:05 WBC 29.7 H* (3.8-10.6) k/uL RBC 3.26 L (3.80-5.40) m/uL Hgb 8.1 L (11.4-16.0) gm/dL Hct 28.1 L (34.0-46.0) % MCH 24.9 L (25.0-35.0) pg MCHC 28.9 L (31.0-37.0) g/dL RDW 19.5 H (11.5-15.5) % Neutrophils # (Manual) 24.30 H (1.3-7.7) k/uL Monocytes # (Manual) 2.08 H (0-1.0) k/uL Myelocytes # (Manual) 1.78 H (0) k/uL Nucleated RBCs 2 H (0-0) /100 WBC APTT (22.0-30.0) sec ABG pH 7.31 L (7.35-7.45) ABG pCO2 71 H* (35-45) mmHg ABG pO2 377 H (83-108) mmHg ABG HCO3 36 H (21-25) mmol/L ABG Total CO2 38 H (19-24) mmol/L ABG O2 Saturation 100.0 H (94-97) % Sodium 131 L (137-145) mmol/L Chloride 93 L (98-107) mmol/L Carbon Dioxide 35 H (22-30) mmol/L BUN 60 H (7-17) mg/dL Creatinine 1.30 H (0.52-1.04) mg/dL Glucose 109 H (74-99) mg/dL POC Glucose (mg/dL) (75-99) mg/dL 05/22/18 05/22/18 05/22/18 Range/Units 06:05 09:51 12:03 WBC (3.8-10.6) k/uL RBC (3.80-5.40) m/uL Hgb (11.4-16.0) gm/dL Hct (34.0-46.0) % MCH (25.0-35.0) pg MCHC (31.0-37.0) g/dL RDW (11.5-15.5) % Neutrophils # (Manual) (1.3-7.7) k/uL Monocytes # (Manual) (0-1.0) k/uL Myelocytes # (Manual) (0) k/uL Nucleated RBCs (0-0) /100 WBC APTT 70.0 H (22.0-30.0) sec ABG pH (7.35-7.45) ABG pCO2 (35-45) mmHg ABG pO2 (83-108) mmHg ABG HCO3 (21-25) mmol/L ABG Total CO2 (19-24) mmol/L ABG O2 Saturation (94-97) % Sodium (137-145) mmol/L Chloride (98-107) mmol/L Carbon Dioxide (22-30) mmol/L BUN (7-17) mg/dL Creatinine (0.52-1.04) mg/dL Glucose (74-99) mg/dL POC Glucose (mg/dL) 179 H 121 H (75-99) mg/dL Microbiology - Last 24 Hours (Table) 05/22/18 05:45 Sputum Culture - Preliminary Sputum Assessment and Plan (1) Acute respiratory failure Current Visit: Yes Status: Acute Priority: High Code(s): J96.00 - ACUTE RESPIRATORY FAILURE, UNSP W HYPOXIA OR HYPERCAPNIA SNOMED Code(s): 87361161 (2) COPD (chronic obstructive pulmonary disease) Current Visit: Yes Status: Acute Priority: High Code(s): J44.9 - CHRONIC OBSTRUCTIVE PULMONARY DISEASE, UNSPECIFIED SNOMED Code(s): 28032083 (3) Rapid atrial fibrillation Current Visit: Yes Status: Acute Code(s): I48.91 - UNSPECIFIED ATRIAL FIBRILLATION SNOMED Code(s): 903117547 Plan: Continue current medical therapy. We'll follow as needed
[2018-05-22] MEDS: NOREPINEPHRINE 16 MG in DEXTROSE 5% IN WATER 250 ML IV SCH ×2 (13:39)
[2018-05-22] MEDS: AMIODARONE 450 MG in DEXTROSE 5% IN WATER 250 ML IV SCH ×2 (15:51)
[2018-05-22 15:56] LABS: Glucose,Whole Blood 131 mg/dL (75-99)
[2018-05-22 19:44] LABS: Glucose,Whole Blood 92 mg/dL (75-99)
[2018-05-23 00:18] LABS: Glucose,Whole Blood 132 mg/dL (75-99)
[2018-05-23] MEDS: INSULIN ASPART 100 UNIT/ML 1 ML 10 ML VIAL SQ SCH ×6 (00:28→19:53)
[2018-05-23] MEDS: PROPOFOL 1,000 MG in EMPTY BAG 1 BAG IV SCH ×6 (00:30→20:04)
[2018-05-23] MEDS: IPRATROPIUM-ALBUTEROL 3 ML NEB INHALATION SCH ×6 (03:03→23:48)
[2018-05-23 04:13] LABS: ABG Base Excess 10.7 mmol/L; ABG HCO3 36 mmol/L (21-25); ABG Oxygen Saturation 96.9 % (94-97); ABG PCO2 63 mmHg (35-45); ABG PH 7.37 (7.35-7.45); ABG PO2 81 mmHg (83-108); ABG TCO2 38 mmol/L (19-24)
[2018-05-23 04:17] LABS: Glucose,Whole Blood 124 mg/dL (75-99)
[2018-05-23 04:49] LABS: Calcium 9.2 mg/dL (8.4-10.2); Magnesium 1.7 mg/dL (1.6-2.3); Phosphorus 3.6 mg/dL (2.5-4.5); Potassium 4.2 mmol/L (3.5-5.1)
[2018-05-23 04:52] LABS: Anisocytosis Slight; HCT 25.2 % (34.0-46.0); HGB 7.6 gm/dL (11.4-16.0); Hypochromasia Marked; MCH 26.1 pg (25.0-35.0); MCHC 30.4 g/dL (31.0-37.0); MCV 85.9 fL (80.0-100.0); Platelet Count 324 k/uL (150-450); Poikilocytosis Slight; RBC 2.93 m/uL (3.80-5.40); RDW 19.6 % (11.5-15.5)
[2018-05-23 04:58] LABS: WBC 31.7 k/uL (3.8-10.6)
[2018-05-23 05:13] LABS: Vancomycin,Random 24.3 ug/mL
[2018-05-23 05:19] LABS: Basophils # (M) 0.32 k/uL (0-0.2); Eosinophils # (M) 0.32 k/uL (0-0.7); Neutrophils % (A) 2 %; Nucleated Red Blood Cells 0 /100 WBC (0-0)
[2018-05-23 05:21] LABS: Band Neutrophils % 4 %; Metamyelocytes # (M) 0.63 k/uL (0); Metamyelocytes % 2 %; Neutrophils % (M) 82 %; Total Cells Counted 200
[2018-05-23 05:22] LABS: Large Platelets Present
[2018-05-23] MEDS: MAGNESIUM SULFATE-D5W PMX 1 GM in DEXTROSE/WATER 1 100ML.BAG IVPB SCH ×2 (06:26→08:39)
--- NOTE | 2018-05-23 07:09 | XR ---
EXAMINATION TYPE: XR chest 1V portable DATE OF EXAM: 05/23/2018 HISTORY: Tube placement. REFERENCE: Previous study of 05/22/2018. FINDINGS: The patient is ET tube remains somewhat low 1.9 cm above the german. There is an NG tube in place and its tip is within the stomach. A right subclavian catheter is in place. Its tip is at the cavoatrial junction. The heart remains enlarged. There are bilateral effusions, greater on the left than the right. There is bibasilar airspace disease. There is vascular congestion and mild edema. IMPRESSION: CONTINUING CHANGES OF CONGESTIVE HEART FAILURE.
[2018-05-23] MEDS: NOREPINEPHRINE 16 MG in DEXTROSE 5% IN WATER 250 ML IV SCH ×2 (08:01)
[2018-05-23] MEDS: HEPARIN SOD,PORK IN 0.45% NACL 25,000 UNIT in 0.45% NACL 1 500ML.BAG IV SCH (08:02)
[2018-05-23] MEDS: AMIODARONE 450 MG in DEXTROSE 5% IN WATER 250 ML IV SCH ×4 (08:02→23:59)
[2018-05-23] MEDS: ASPIRIN 325 MG TAB PO SCH (08:03)
[2018-05-23] MEDS: CHLORHEXIDINE GLUCONATE 15 ML CUP MUCOUS MEM SCH ×2 (08:03→20:02)
[2018-05-23] MEDS: FUROSEMIDE 10 MG/ML 4 ML VIAL IV SCH ×2 (08:04→20:01)
[2018-05-23] MEDS: PANTOPRAZOLE 40 MG/10 ML VIAL IV SCH (08:04)
--- NOTE | 2018-05-23 08:32 | P.PN ---
Subjective Progress Note Date: 05/23/18 Principal diagnosis: Respiratory failure Progress note dated 05/19/2018 67-year-old female with a history of acute on chronic hypoxemic and hypercapnic respiratory failure. The patient was extubated a couple days ago to BiPAP therapy and has been pretty much BiPAP dependent since. This morning, we will switch her to nasal O2 and ventilatory mask with the idea of maintaining saturations in the high 80s and low 90s. She also has a history of hypertension. Was on pressors but they have been weaned off. In addition, the patient was thought to have a left lung pneumonia, heart failure, pulmonary hypertension, stage III chronic kidney disease, stage III chronic decubitus ulcerations, morbid obesity, chronic atrial fibrillation, CAD, C. difficile colitis, hypertension, DJD, COPD, and mental status changes. Currently, the patient was on BiPAP with an IPAP of 14 and EPAP of 5 and 24% oxygen. IVs included TPN at 30 mL an hour heparin via weightbase protocol and amiodarone at 1 mg per hour. She still appears somewhat lethargic and somnolent but is slightly better than she was yesterday. Still pretty much has a blank stare on her face. She is still in atrial fibrillation. Progress note dated 05/20/2018 67-year-old female with a history of acute on chronic hypoxemic and hypercapnic respiratory failure. She was extubated a number of days ago and has been pretty much BiPAP dependent since. Currently, her BiPAP settings included a IPAP of 16 and EPAP of 5 with an FiO2 of 24%. She is also getting TPN at 30 mL an hour heparin via weightbase protocol and amiodarone a 0.5 mg/m for her chronic atrial fibrillation and rapid ventricular response. She seems a bit more awake and alert today. Her lower extremity edema is improved. She still in atrial fibrillation. Chest x-ray is consistent with diffuse bilateral infiltrates likely heart failure although pneumonia cannot be excluded. Bronchoscopy and washings from May 14 show methicillin-resistant staph aureus. White count 19.1, hemoglobin 7.7, Macrobid 25.8 and platelet count normal. PTT is 88.1. Sodium 132, potassium 3.7, chloride 92 and CO2 36. BUN and creatinine were 46 and 1.60. I would say since I started seeing her on Thursday, she is about the same or only minimally improved mostly from the mental status picture. She still has a long way to go and is chronically and critically ill at this point. Progress note dated 05/21/2018 67-year-old female with a history of acute on chronic hypoxemic and hypercapnic respiratory failure. She was extubated a number of days ago has been pretty much BiPAP dependent since. Yesterday she spent about an hour and half off the BiPAP device on nasal cannula. She did okay. Currently, she is on 4 L by nasal cannula. Her BiPAP settings of 16 and 5 and 30% FiO2. She currently is on amiodarone appointment 5 mg/m heparin via weightbase protocol TPN at 70 mL an hour and lipids today at noon. Overall situation is about the same as it has been this entire week. Her mental status is not really improved all that much. She does respond to verbal stimulation. She seems sleepy and lethargic most of the time. Chest x-ray today shows stable findings of chronic parenchymal changes and cardiomegaly with small left pleural effusion. There are some bilateral and basilar infiltrates. Progress note dated 05/22/2018 A 67-year-old female with a history of acute on chronic hypoxemic and hypercapnic respiratory failure. She was previously intubated and subsequently extubated and has been pretty much BiPAP dependent since. Unfortunately, early this morning at about 5 AM, she developed increasing respiratory distress with increasing respiratory rate hypoxemic respiratory failure with low saturations and required reintubation. Currently, she is on the volume assist control mode , with a rate of 20, tidal volume 400, FiO2 40% and a PEEP of 5. Arterial blood gases on the same settings but 100%, show a PaO2 of 377 a PaCO2 of 71 and a pH of 7.31. The patient's currently on total parenteral nutrition at 70 mL an hour. This will be cut in half and eventually the patient will be transitioned over to enteral nutrition. Heparin is at weightbase protocol, amiodarone is a 0.5 mg/m and norepinephrine to 6 mcg/m. She is on propofol at 35 mics per kilogram per minute. Chest x-rays consistent with bilateral effusions and fluid overload. Endotracheal tube is in the right mainstem. Progress note dated 05/23/2018 67-year-old female with history of acute on chronic hypoxemic and hypercapnic respiratory failure. The patient was previously intubated and subsequently extubated for long period of time was BiPAP dependent. 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 At that point, she developed increasing respiratory distress with profound hypoxemia. The the patient remains on the mechanical ventilator is likely headed towards tracheostomy and PEG tube placement. In fact I've asked the surgeon to see her for that. Currently, she is on the volume assist control mode rate of 20, tidal volume 400 FiO2 40% and PEEP of 5. Arterial blood gases show a PaO2 of 81 a PaCO2 of 63 and a pH of 7.37. She remains on saline IV at 50 mL now her amiodarone drip at 0.5 mg/m propofol at 35 mics per kilogram per minute heparin via weightbase protocol norepinephrine at 4 mcg/m and vital high protein at 38 with a goal of 38 mL an hour. The patient will have a daily interruption of sedation today. The chest x-ray continues to show changes of diffuse bilateral infiltrates may have may relate to underlying pneumonia and/or heart failure. Objective - Vital Signs Vital signs: Vital Signs Temp 98.3 F 05/23/18 04:00 Pulse 97 05/23/18 07:45 Resp 20 05/23/18 07:00 BP 95/57 05/23/18 01:00 Pulse Ox 100 05/23/18 07:00 Intake & Output 05/22/18 05/23/18 05/23/18 18:59 06:59 18:59 Intake Total 1588.174 602.706 110.45 Output Total 328 990 120 Balance 1260.174 -387.294 -9.55 Weight 115 kg 115.9 kg Intake: IV 588.26 16.66 Amiodarone 450 mg In 183.26 16.66 Dextrose 5% in Water 250 ml @ 0.5 MG/MIN 16.66 mls /hr IV .Q15H1M [facility] Rx#: [id number] Parenteral Electrolytes 280 20 ml In Amino Acid 5%- D15w 1,000 ml @ 70 mls/hr IV .BY DURATION [facility] Rx#: [id number] Sodium Ferric Gluconat- 125 Sucrose 125 mg In Sodium Chloride 0.9% 100 ml @ 100 mls/hr IVPB DAILY [facility] Rx#:[id number] Intake, IV Titration 989.914 178.046 72.45 Amount Heparin Sod,Pork in 0.45% 449.952 NaCl 25,000 unit In 0.45 % NaCl 1 500ml.bag @ 9.8 UNITS/KG/HR 21.91 mls/hr IV .[id number] [facility] Rx#: [id number] Linezolid 600 mg In 300 Dextrose/Water 1 300ml. bag @ 150 mls/hr IVPB Q12HR [facility] Rx#:[id number] Norepinephrine 16 mg In 39.962 17.671 Dextrose 5% in Water 250 ml @ Titrate IV .Q0M [facility] Rx#:[id number] Propofol 1,000 mg In 200.000 160.375 72.45 Empty Bag 1 bag @ Titrate IV .Q0M [facility] Rx#: [id number] Tube Feeding 318 38 Other 10 90 Output: Urine 328 990 120 Other: Voiding Method Indwelling Catheter Indwelling Catheter ABP, PAP, CO, CI - Last Documented Arterial Blood Pressure 110/57 - Exam The patient appears in no acute distress, she is sedated, she has an orally placed endotracheal tube and NG tube. The patient will have a daily interruption of sedation today. HEENT examination is grossly unremarkable. Mucous membranes are moist. Neck supple. Full range of motion. No adenopathy thyromegaly or neck vein distention. Cardiovascular examination reveals a irregular rhythm and rate. S1-S2 normal. No S3 or S4. Heart sounds distant. Lungs reveal bilateral coarse rhonchi. Some bibasilar crackles noted. Breath sounds equal bilaterally. No wheezes appreciated. Lung sounds are much more rhonchorous today than they were yesterday. Abdomen soft bowel sounds are heard. No masses or tenderness. Extremities are intact. Bilateral lower extremity edema noted. It is pitting. No cyanosis or clubbing.. Skin is without rash or lesion. Neurologic examination is difficult to assess. - Labs CBC & Chem 7: 05/23/18 04:26 05/23/18 04:26 Labs: Abnormal Lab Results - Last 24 Hours (Table) 05/22/18 05/22/18 05/22/18 Range/Units 09:51 12:03 15:55 WBC (3.8-10.6) k/uL RBC (3.80-5.40) m/uL Hgb (11.4-16.0) gm/dL Hct (34.0-46.0) % MCHC (31.0-37.0) g/dL RDW (11.5-15.5) % Neutrophils # (Manual) (1.3-7.7) k/uL Monocytes # (Manual) (0-1.0) k/uL Basophils # (Manual) (0-0.2) k/uL Metamyelocytes # (Man) (0) k/uL APTT (22.0-30.0) sec ABG pCO2 (35-45) mmHg ABG pO2 (83-108) mmHg ABG HCO3 (21-25) mmol/L ABG Total CO2 (19-24) mmol/L Sodium (137-145) mmol/L Chloride (98-107) mmol/L Carbon Dioxide (22-30) mmol/L BUN (7-17) mg/dL Creatinine (0.52-1.04) mg/dL Glucose (74-99) mg/dL POC Glucose (mg/dL) 179 H 121 H 131 H (75-99) mg/dL 05/23/18 05/23/18 05/23/18 Range/Units 00:16 04:11 04:15 WBC (3.8-10.6) k/uL RBC (3.80-5.40) m/uL Hgb (11.4-16.0) gm/dL Hct (34.0-46.0) % MCHC (31.0-37.0) g/dL RDW (11.5-15.5) % Neutrophils # (Manual) (1.3-7.7) k/uL Monocytes # (Manual) (0-1.0) k/uL Basophils # (Manual) (0-0.2) k/uL Metamyelocytes # (Man) (0) k/uL APTT (22.0-30.0) sec ABG pCO2 63 H (35-45) mmHg ABG pO2 81 L (83-108) mmHg ABG HCO3 36 H (21-25) mmol/L ABG Total CO2 38 H (19-24) mmol/L Sodium (137-145) mmol/L Chloride (98-107) mmol/L Carbon Dioxide (22-30) mmol/L BUN (7-17) mg/dL Creatinine (0.52-1.04) mg/dL Glucose (74-99) mg/dL POC Glucose (mg/dL) 132 H 124 H (75-99) mg/dL 05/23/18 05/23/18 05/23/18 Range/Units 04:26 04:26 04:26 WBC 31.7 H* (3.8-10.6) k/uL RBC 2.93 L (3.80-5.40) m/uL Hgb 7.6 L (11.4-16.0) gm/dL Hct 25.2 L (34.0-46.0) % MCHC 30.4 L (31.0-37.0) g/dL RDW 19.6 H (11.5-15.5) % Neutrophils # (Manual) 27.20 H (1.3-7.7) k/uL Monocytes # (Manual) 1.90 H (0-1.0) k/uL Basophils # (Manual) 0.32 H (0-0.2) k/uL Metamyelocytes # (Man) 0.63 H (0) k/uL APTT 71.3 H (22.0-30.0) sec ABG pCO2 (35-45) mmHg ABG pO2 (83-108) mmHg ABG HCO3 (21-25) mmol/L ABG Total CO2 (19-24) mmol/L Sodium 129 L (137-145) mmol/L Chloride 91 L (98-107) mmol/L Carbon Dioxide 35 H (22-30) mmol/L BUN 59 H (7-17) mg/dL Creatinine 1.44 H (0.52-1.04) mg/dL Glucose 109 H (74-99) mg/dL POC Glucose (mg/dL) (75-99) mg/dL Microbiology - Last 24 Hours (Table) 05/22/18 05:45 Sputum Culture - Preliminary Sputum Assessment and Plan Assessment: Assessment Acute on chronic hypoxemic and hypercapnic respiratory failure, status post intubation with mechanical ventilation and extubation to BiPAP therapy Recurrent celia respiratory failure with profound hypoxemia, requiring reintubation on 05/22/2018 at 5:15 AM Mental status changes, which may relate to ICU delirium and/or hypercapnic respiratory failure Methicillin-resistant staph aureus pneumonia, status post BAL with evidence of staphylococcal species. Patient currently on antibiotic therapy Hypotension, resolved, patient previously on pressors Systolic heart failure with an ejection fraction of 30-35% Moderate pulmonary hypertension Stage III chronic kidney disease Stage III chronic decubitus ulcerations Morbid obesity Chronic atrial fibrillation CAD C. difficile colitis Essential hypertension DJD COPD Rule out pickwickian syndrome Plan: Plan dated 05/19/2018 I will attempt to wean the patient off the BiPAP and onto nasal O2 and/or a Venturi mask. We'll continue the antibiotics for the methicillin-resistant staph aureus pneumonia. The patient is currently being nourished with TPN at 30 mL an hour. She cannot take anything by mouth. She remains on IV heparin for her atrial fibrillation and amiodarone at 1 mg per hour. Chest x-ray will be reviewed. Prognosis is poor. My nurse practitioner had a long talk with the family yesterday. I will discuss the case with the hospital doctor today. Additional recommendations and suggestions are forthcoming. Critical-care time 34 minutes Plan dated 05/20/2018 We will continue with the BiPAP at 16 and 5 and 24%. We continue with the amiodarone at 0.5 mg/m heparin fibrillation and rapid ventricular response and nourishment via TPN. She cannot take anything by mouth. Chest x-rays consistent with diffuse bilateral infiltrates. Mental status is only minimally improved. Labs x-rays a medications are reviewed. No additional positive microbiology is seen. Prognosis is guarded. I did speak to the hospitalist yesterday. He will continue updating the family as it relates to the overall condition of this patient. Additional recommendations and suggestions are forthcoming. Critical care time 32 minutes Plan dated 05/21/2018 Today's chest x-ray is about the same as it was for the last couple of days. This been no major changes. White count is 23.8 hemoglobin 7.8 hematocrit 25.8 and platelet count is normal. Sodium 131, potassium 4.2, chloride is 93, and CO2 35. BUN and creatinine were 54 and 1.30. The only positive microbiology was from May 14, [place], which showed methicillin-resistant staph aureus. This has been treated with vancomycin. Labs x-rays a medications are all reviewed. The patient remains on amiodarone for atrial fibrillation. Prognosis is guarded. There is been little improvement over the last 5 days in my opinion. Critical care time 32 minutes Plan dated 05/22/2018 Unfortunately, the patient's respiratory status declined significantly early this morning and she required intubation and mechanical ventilation. We've adjusted her ventilator appropriately. She remains on sedation. She is requiring norepinephrine at 6 mcg/m she remains on amiodarone. She also remains on IV heparin. We will cut her TPN and half and transition her to enteral nutrition. She may benefit from tracheostomy and PEG tube if that'll is what the family wishes. We talked to the family all along about CODE STATUS and they've been consistent on full cardiopulmonary resuscitation. The patient really has made no progress throughout the week. Chest x-ray labs and medications are reviewed. White count is 29.7, hemoglobin 8.1, hematocrit 28.1 and platelet count 350,000. Sodium 131 potassium 4.3 chloride 93 CO2 35 with a BUN and creatinine of 60 and 1.30. Prognosis is poor in my opinion Critical care time 36 minutes Plan dated 05/23/2018 Chest X-Ray continues to show pattern of heart failure/infiltrates. There are no changes with a microbiologic studies. White count is 31.7 hemoglobin 7.6 hematocrit 25.2 and platelet count 324,000. PTT 71.3 reflecting the IV heparin. Arterial blood gases have been previously noted. Sodium 129 potassium 4.2 chloride 91 CO2 35 BUN and creatinine were 59 and 1.44. The patient remains on amiodarone, propofol, IV heparin, norepinephrine and vital high protein at goal. The patient also remains on Zosyn and Zyvox as her antibiotics. She really has made no progress this entire week and in fact has gotten worse and I think she would best be suited with a tracheostomy and PEG tube. Apparently the family agrees. They've been insistent all along that the patient be a full code. Critical care time 35 minutes Time with Patient: Greater than 30
[2018-05-23 08:37] LABS: Glucose,Whole Blood 140 mg/dL (75-99)
--- NOTE | 2018-05-23 09:32 | P.PN ---
Subjective Progress Note Date: 05/23/18 Principal diagnosis: This 67-year-old female is followed up with acute kidney injury secondary to prerenal, congestive heart failure atrial fibrillation. She was reintubated yesterday 05/22/18 and started on and remains currently is on levo fed and on Diprivan. The reason for intubation was she was desaturating. Currently she is obtunded sedated. Levo fed is at 4 mis, less than yesterday, she is in atrial fibrillation. Her urine output is 1318 last 24 hrs. last 8 hrs it is 630. her Lasix is at 40 mg every 12 She was admitted with acute on chronic hypoxic respiratory failure, with pulmonary edema due to combination of acute diastolic CHF exacerbation and fluid redistribution in the background of chronic renal insufficiency with A. fib with RVR with obstructive lung disease, obesity hypoventilation and chronic hypercarbic respiratory failure; status post endotracheal intubation Objective - Vital Signs Vital signs: Vital Signs Temp 98.3 F 05/23/18 04:00 Pulse 97 05/23/18 07:45 Resp 20 05/23/18 07:00 BP 95/57 05/23/18 01:00 Pulse Ox 100 05/23/18 07:00 Intake & Output 05/22/18 05/23/18 05/23/18 18:59 06:59 18:59 Intake Total 1588.174 852.706 584.653 Output Total 328 990 240 Balance 1260.174 -137.294 344.653 Weight 115 kg 115.9 kg Intake: IV 588.26 16.66 100 Amiodarone 450 mg In 183.26 16.66 Dextrose 5% in Water 250 ml @ 0.5 MG/MIN 16.66 mls /hr IV .Q15H1M [facility] Rx#: [id number] Magnesium Sulfate-D5w Pmx 100 1 gm In Dextrose/Water 1 100ml.bag @ 100 mls/hr IVPB ONCE ONE Rx#: [id number] Parenteral Electrolytes 280 20 ml In Amino Acid 5%- D15w 1,000 ml @ 70 mls/hr IV .BY DURATION [facility] Rx#: [id number] Sodium Ferric Gluconat- 125 Sucrose 125 mg In Sodium Chloride 0.9% 100 ml @ 100 mls/hr IVPB DAILY [facility] Rx#:[id number] Intake, IV Titration 989.914 428.046 446.653 Amount Amiodarone 450 mg In 250 Dextrose 5% in Water 250 ml @ 0.5 MG/MIN 16.66 mls /hr IV .Q15H1M [facility] Rx#: [id number] Heparin Sod,Pork in 0.45% 449.952 346.765 NaCl 25,000 unit In 0.45 % NaCl 1 500ml.bag @ 9.8 UNITS/KG/HR 21.91 mls/hr IV .[id number] [facility] Rx#: [id number] Linezolid 600 mg In 300 Dextrose/Water 1 300ml. bag @ 150 mls/hr IVPB Q12HR [facility] Rx#:[id number] Norepinephrine 16 mg In 39.962 17.671 27.438 Dextrose 5% in Water 250 ml @ Titrate IV .Q0M [facility] Rx#:[id number] Propofol 1,000 mg In 200.000 160.375 72.45 Empty Bag 1 bag @ Titrate IV .Q0M [facility] Rx#: [id number] Tube Feeding 318 38 Other 10 90 Output: Urine 328 990 240 Other: Voiding Method Indwelling Catheter Indwelling Catheter ABP, PAP, CO, CI - Last Documented Arterial Blood Pressure 110/57 On examination she remains sedated and on the vent 50% FiO2 no change. Her levo fed dose has been reduced somewhat. HEENT exam no JVP neck is supple no facial asymmetry pupils are equal. Infected auscultation fair air entry bilaterally Heart sounds unremarkable except for the atrial fibrillation seen on monitor Abdomen is nondistended. Extremity exam was mild edema Neurologically obtunded. And sedated - Labs CBC & Chem 7: 05/23/18 04:26 05/23/18 04:26 Labs: Abnormal Lab Results - Last 24 Hours (Table) 05/22/18 05/22/18 05/22/18 Range/Units 09:51 12:03 15:55 WBC (3.8-10.6) k/uL RBC (3.80-5.40) m/uL Hgb (11.4-16.0) gm/dL Hct (34.0-46.0) % MCHC (31.0-37.0) g/dL RDW (11.5-15.5) % Neutrophils # (Manual) (1.3-7.7) k/uL Monocytes # (Manual) (0-1.0) k/uL Basophils # (Manual) (0-0.2) k/uL Metamyelocytes # (Man) (0) k/uL APTT (22.0-30.0) sec ABG pCO2 (35-45) mmHg ABG pO2 (83-108) mmHg ABG HCO3 (21-25) mmol/L ABG Total CO2 (19-24) mmol/L Sodium (137-145) mmol/L Chloride (98-107) mmol/L Carbon Dioxide (22-30) mmol/L BUN (7-17) mg/dL Creatinine (0.52-1.04) mg/dL Glucose (74-99) mg/dL POC Glucose (mg/dL) 179 H 121 H 131 H (75-99) mg/dL 05/23/18 05/23/18 05/23/18 Range/Units 00:16 04:11 04:15 WBC (3.8-10.6) k/uL RBC (3.80-5.40) m/uL Hgb (11.4-16.0) gm/dL Hct (34.0-46.0) % MCHC (31.0-37.0) g/dL RDW (11.5-15.5) % Neutrophils # (Manual) (1.3-7.7) k/uL Monocytes # (Manual) (0-1.0) k/uL Basophils # (Manual) (0-0.2) k/uL Metamyelocytes # (Man) (0) k/uL APTT (22.0-30.0) sec ABG pCO2 63 H (35-45) mmHg ABG pO2 81 L (83-108) mmHg ABG HCO3 36 H (21-25) mmol/L ABG Total CO2 38 H (19-24) mmol/L Sodium (137-145) mmol/L Chloride (98-107) mmol/L Carbon Dioxide (22-30) mmol/L BUN (7-17) mg/dL Creatinine (0.52-1.04) mg/dL Glucose (74-99) mg/dL POC Glucose (mg/dL) 132 H 124 H (75-99) mg/dL 05/23/18 05/23/18 05/23/18 Range/Units 04:26 04:26 04:26 WBC 31.7 H* (3.8-10.6) k/uL RBC 2.93 L (3.80-5.40) m/uL Hgb 7.6 L (11.4-16.0) gm/dL Hct 25.2 L (34.0-46.0) % MCHC 30.4 L (31.0-37.0) g/dL RDW 19.6 H (11.5-15.5) % Neutrophils # (Manual) 27.20 H (1.3-7.7) k/uL Monocytes # (Manual) 1.90 H (0-1.0) k/uL Basophils # (Manual) 0.32 H (0-0.2) k/uL Metamyelocytes # (Man) 0.63 H (0) k/uL APTT 71.3 H (22.0-30.0) sec ABG pCO2 (35-45) mmHg ABG pO2 (83-108) mmHg ABG HCO3 (21-25) mmol/L ABG Total CO2 (19-24) mmol/L Sodium 129 L (137-145) mmol/L Chloride 91 L (98-107) mmol/L Carbon Dioxide 35 H (22-30) mmol/L BUN 59 H (7-17) mg/dL Creatinine 1.44 H (0.52-1.04) mg/dL Glucose 109 H (74-99) mg/dL POC Glucose (mg/dL) (75-99) mg/dL 05/23/18 Range/Units 08:35 WBC (3.8-10.6) k/uL RBC (3.80-5.40) m/uL Hgb (11.4-16.0) gm/dL Hct (34.0-46.0) % MCHC (31.0-37.0) g/dL RDW (11.5-15.5) % Neutrophils # (Manual) (1.3-7.7) k/uL Monocytes # (Manual) (0-1.0) k/uL Basophils # (Manual) (0-0.2) k/uL Metamyelocytes # (Man) (0) k/uL APTT (22.0-30.0) sec ABG pCO2 (35-45) mmHg ABG pO2 (83-108) mmHg ABG HCO3 (21-25) mmol/L ABG Total CO2 (19-24) mmol/L Sodium (137-145) mmol/L Chloride (98-107) mmol/L Carbon Dioxide (22-30) mmol/L BUN (7-17) mg/dL Creatinine (0.52-1.04) mg/dL Glucose (74-99) mg/dL POC Glucose (mg/dL) 140 H (75-99) mg/dL Microbiology - Last 24 Hours (Table) 05/22/18 05:45 Sputum Culture - Preliminary Sputum Assessment and Plan Assessment: Impression 1. Acute kidney injury with component from cardiorenal syndrome, somewhat fluid overloaded with chest x-ray is suggestive congestive heart failure and edema. 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 Additionally patient is on vancomycin which is adding to her risk of ATN. Her creatinine was 1.3 yesterday , vancomycin was discontinued the Vanco level remained high and creatinine has come up to 1.5 this morning therefore an element of vancomycin associated nephrotoxicity. 2. Baseline creatinine unknown. 3. Atrial fibrillation on amiodrone. Heart rate controlled at 90s. 4. Moderate edema, Congestive heart failure, chest x-ray seems to be somewhat better, remains on 50% FiO2. 5. Hypo-natremia secondary to volume overload, sodium went down to 129, likely secondary to acute kidney injury element from the vancomycin. 6. Mild metabolic acidosis with pH of 7.37 with mostly a respiratory component with a pCO2 of 63, with a compensatory metabolic alkalosis. Recommendation 1. Maintain IV Lasix currently dose of 40 every 12. 2. Avoid nephrotoxic medication including vancomycin, which is discontinued yesterday 05/22/2018. 3. Regarding the hyponatremia, we will watch. 4. Maintain antibiotics for possible sepsis and pneumonia 5. Monitor labs closely on a daily basis
[2018-05-23] MEDS: LINEZOLID 600 MG in DEXTROSE/WATER 1 300ML.BAG IVPB SCH ×2 (10:01→20:01)
[2018-05-23 11:49] LABS: Glucose,Whole Blood 128 mg/dL (75-99)
--- NOTE | 2018-05-23 13:37 | P.GSCN ---
History of Present Illness Consult date: 05/23/18 Reason for Consult: Evaluation for tracheostomy and percutaneous endoscopic gastrostomy tube placement. Requesting physician: Steve Mcmullen History of present illness: This is a 67-year-old female patient with history of multiple medical problems including COPD with chronic CO2 retention who is home oxygen dependent, obstructive sleep apnea with nocturnal BiPAP dependency, chronic kidney disease stage III, type 2 diabetes mellitus, diastolic heart failure, a history of chronic decubitus ulcers, morbid obesity with a BMI of 42.8 and chronic atrial fibrillation on hold anticoagulation therapy Eliquis. On 05/11/2018 the patient presented to the emergency department here at [facility] for evaluation of her chronic leg ulcers and was found to be very short of breath. During her presentation she denied any complaints of chest pain, fevers, chills, nausea or vomiting. She was subsequently intubated and sedated due to her severe respiratory distress. She was successfully extubated on 05/15/2018 and has been BiPAP dependent since she has been extubated. Yesterday 05/12/2018 she developed some respiratory distress and became hypoxemic and was subsequently reintubated. Due to the patient's respiratory failure and need for reintubation a consult was placed to Dr. Bravo for possible tracheostomy and PEG tube placement. Review of Systems A 14 point review of systems was completed and was negative except as mentioned in HPI. Past Medical History Past Medical History: Atrial Fibrillation, Coronary Artery Disease (CAD), Heart Failure, COPD, GERD/Reflux, Respiratory Disorder, Sleep Apnea/CPAP/BIPAP Additional Past Medical History / Comment(s): Chronic Afib, CKD stage III recently diagnosed, NIDDM type II, chronic CO2 retainer, chronic respiratory failure with home O2 at 3L/NC during day and bipap at night, severe GERD, recent diarrhea (past 2 weeks and other family members with diarrhea), current lower extremity cellulitis, current bilateral hip decubitus recently increased to stage II, EF in April 2018 55%, HTN and was on med briefly but did not tolerate even low dose without going hypotensive, anemia, chronic pain- DDD/( sciatica in past), R shoulder/upper arm pain, back pain, bilateral knee pain and recent neck pain, wheelchair bound mostly-able to take couple steps but past 5 days has been bedbound. History of Any Multi-Drug Resistant Organisms: C-DIFF, MRSA, VRE Year Discovered:: 05/14/18 MDRO Source:: Bronchial washing Past Surgical History: Appendectomy, Orthopedic Surgery, Tonsillectomy Additional Past Surgical History / Comment(s): finger surgery d/t chainsaw accident (unknown which finger) Past Anesthesia/Blood Transfusion Reactions: No Reported Reaction Past Psychological History: No Psychological Hx Reported Smoking Status: Former smoker - Past Family History Mother Family Medical History: Cancer, CVA/TIA, GI Bleed, Hypertension Additional Family Medical History / Comment(s): Upper GI bleed/ulcers. Father History Unknown: Yes Additional Family Medical History / Comment(s): Father just before pt was born in an employment accident. Medications and Allergies Home Medications Medication Instructions Recorded Confirmed Type Acetaminophen [Tylenol Extra 1,000 mg PO Q6H PRN 05/11/18 05/11/18 History Strength] Albuterol Inhaler [Ventolin Hfa 1 - 2 puff INHALATION RT-Q6H PRN 05/11/18 History Inhaler] Albuterol Nebulized [Ventolin 1.25 mg INHALATION RT-DAILY PRN 05/11/18 05/11/18 History Nebulized] Aspirin 325 mg PO DAILY 05/11/18 05/11/18 History DULoxetine HCL [Cymbalta] 30 mg PO DAILY 05/11/18 05/11/18 History Diclofenac Sodium [Voltaren Gel] 2 gram TOPICAL QID 05/11/18 05/11/18 History Fidaxomicin [Dificid] 400 mg PO BID 05/11/18 05/11/18 History Fluticasone Nasal [place] [Flonase 2 spr EA NOSTRIL DAILY 05/11/18 05/11/18 History Nasal [place]] Fluticasone/Salmeterol [Advair 1 inhalation PO RT-BID 05/11/18 05/11/18 History 250-50 Diskus] Furosemide [Lasix] 40 mg PO BID 05/11/18 05/11/18 History Gentamicin 0.1% Cream 1 applic TOPICAL TID 05/11/18 05/11/18 History Ibuprofen [Motrin Ib] 400 mg PO Q6H PRN 05/11/18 05/11/18 History Ipratropium Nebulized [Atrovent 0.5 mg INHALATION RT-QID 05/11/18 05/11/18 History Nebulized] Metolazone [Zaroxolyn] 5 mg PO DAILY 05/11/18 05/11/18 History Montelukast [Singulair] 10 mg PO DAILY 05/11/18 05/11/18 History Ondansetron [Zofran] 4 mg PO Q8HR PRN 05/11/18 05/11/18 History Spironolactone [Aldactone] 50 mg PO DAILY@1200 05/11/18 05/11/18 History Sucralfate [Carafate] 1 gm PO QID 05/11/18 05/11/18 History Umeclidinium Brm/Vilanterol Tr 1 puff INHALATION DAILY 05/11/18 05/11/18 History [Anoro Ellipta 62.5-25 Mcg INH] guaiFENesin [Mucinex] 1,200 mg PO Q12HR 05/11/18 05/11/18 History metFORMIN HCL [Glucophage] 500 mg PO DAILY 05/11/18 05/11/18 History Allergies Allergy/AdvReac Type Severity Reaction Status Date / Time acetaminophen [From [place]] Allergy Unknown Verified 05/11/18 14:54 banana Allergy Unknown Verified 05/11/18 14:54 hydrocodone Allergy Unknown Verified 05/11/18 14:54 levofloxacin Allergy Unknown Verified 05/11/18 14:54 Penicillins Allergy Unknown Verified 05/11/18 14:54 tomato Allergy Unknown Verified 05/11/18 14:54 Surgical - Exam Vital Signs Temp Pulse Resp Pulse Ox 97.9 F 90 28 H 94 L 05/11/18 14:41 05/11/18 14:41 05/11/18 14:41 05/11/18 14:41 Patient is currently sedated on propofol drip at 35 mcg/kg/m. - General Morbidly obese well developed, well nourished, no distress, no pain - Eyes Sclerae are anicteric PERRL, normal ocular movement - ENT ET tube in place, OG tube in place. normal pinna, normal nares, normal mucosa - Neck No lymphadenopathy, neck is supple. no masses, no bruits, trachea midline, no venous distension - Respiratory Lung sounds with scattered rhonchi throughout, diminished bilateral bases. Respirations are symmetrical and nonlabored with mechanical ventilator support. Current ventilator settings are as follows: This is control 20, tidal volume 400, FiO2 40%, PEEP of 5. Current oxygen saturation are 100%. - Cardiovascular Irregular rhythm with controlled rate. S1 and S2 present, negative for S3, gallop or murmur. Bedside telemetry showing atrial fibrillation heart rate 95. Currently on amiodarone at 0.5 mg/m and norepinephrine 4 mcg/m. - Abdomen Abdomen is soft, nontender nondistended. Hypoactive bowel sounds all 4 abdominal quadrants. OG tube in place with 2 feedings infusing. No organomegaly. - Genitourinary Deferred - Rectum Deferred - Neurologic Currently sedated on propofol drip at 35 mcg/kg/m. Results - Labs 05/23/18 04:26 05/23/18 04:26 Abnormal Lab Results - Last 24 Hours (Table) 05/22/18 05/23/18 05/23/18 Range/Units 15:55 00:16 04:11 WBC (3.8-10.6) k/uL RBC (3.80-5.40) m/uL Hgb (11.4-16.0) gm/dL Hct (34.0-46.0) % MCHC (31.0-37.0) g/dL RDW (11.5-15.5) % Neutrophils # (Manual) (1.3-7.7) k/uL Monocytes # (Manual) (0-1.0) k/uL Basophils # (Manual) (0-0.2) k/uL Metamyelocytes # (Man) (0) k/uL APTT (22.0-30.0) sec ABG pCO2 63 H (35-45) mmHg ABG pO2 81 L (83-108) mmHg ABG HCO3 36 H (21-25) mmol/L ABG Total CO2 38 H (19-24) mmol/L Sodium (137-145) mmol/L Chloride (98-107) mmol/L Carbon Dioxide (22-30) mmol/L BUN (7-17) mg/dL Creatinine (0.52-1.04) mg/dL Glucose (74-99) mg/dL POC Glucose (mg/dL) 131 H 132 H (75-99) mg/dL 08/19/18 08/19/18 08/19/18 Range/Units 04:15 04:26 04:26 WBC (3.8-10.6) k/uL RBC (3.80-5.40) m/uL Hgb (11.4-16.0) gm/dL Hct (34.0-46.0) % MCHC (31.0-37.0) g/dL RDW (11.5-15.5) % Neutrophils # (Manual) (1.3-7.7) k/uL Monocytes # (Manual) (0-1.0) k/uL Basophils # (Manual) (0-0.2) k/uL Metamyelocytes # (Man) (0) k/uL APTT 71.3 H (22.0-30.0) sec ABG pCO2 (35-45) mmHg ABG pO2 (83-108) mmHg ABG HCO3 (21-25) mmol/L ABG Total CO2 (19-24) mmol/L Sodium 129 L (137-145) mmol/L Chloride 91 L (98-107) mmol/L Carbon Dioxide 35 H (22-30) mmol/L BUN 59 H (7-17) mg/dL Creatinine 1.44 H (0.52-1.04) mg/dL Glucose 109 H (74-99) mg/dL POC Glucose (mg/dL) 124 H (75-99) mg/dL 18 18 05/23/18 Range/Units 04:26 08:35 11:48 WBC 31.7 H* (3.8-10.6) k/uL RBC 2.93 L (3.80-5.40) m/uL Hgb 7.6 L (11.4-16.0) gm/dL Hct 25.2 L (34.0-46.0) % MCHC 30.4 L (31.0-37.0) g/dL RDW 19.6 H (11.5-15.5) % Neutrophils # (Manual) 27.20 H (1.3-7.7) k/uL Monocytes # (Manual) 1.90 H (0-1.0) k/uL Basophils # (Manual) 0.32 H (0-0.2) k/uL Metamyelocytes # (Man) 0.63 H (0) k/uL APTT (22.0-30.0) sec ABG pCO2 (35-45) mmHg ABG pO2 (83-108) mmHg ABG HCO3 (21-25) mmol/L ABG Total CO2 (19-24) mmol/L Sodium (137-145) mmol/L Chloride (98-107) mmol/L Carbon Dioxide (22-30) mmol/L BUN (7-17) mg/dL Creatinine (0.52-1.04) mg/dL Glucose (74-99) mg/dL POC Glucose (mg/dL) 140 H 128 H (75-99) mg/dL Microbiology - Last 24 Hours (Table) 05/22/18 05:45 Gram Stain - Preliminary Sputum Sputum Culture - Preliminary Diabetes panel 05/23/18 Range/Units 04:26 Sodium 129 L (137-145) mmol/L Potassium 4.2 (3.5-5.1) mmol/L Chloride 91 L (98-107) mmol/L Carbon Dioxide 35 H (22-30) mmol/L BUN 59 H (7-17) mg/dL Creatinine 1.44 H (0.52-1.04) mg/dL Glucose 109 H (74-99) mg/dL Calcium 9.2 (8.4-10.2) mg/dL Calcium panel 05/23/18 Range/Units 04:26 Calcium 9.2 (8.4-10.2) mg/dL Phosphorus 3.6 (2.5-4.5) mg/dL Pituitary panel 05/23/18 Range/Units 04:26 Sodium 129 L (137-145) mmol/L Potassium 4.2 (3.5-5.1) mmol/L Chloride 91 L (98-107) mmol/L Carbon Dioxide 35 H (22-30) mmol/L BUN 59 H (7-17) mg/dL Creatinine 1.44 H (0.52-1.04) mg/dL Glucose 109 H (74-99) mg/dL Calcium 9.2 (8.4-10.2) mg/dL Adrenal panel 05/23/18 Range/Units 04:26 Sodium 129 L (137-145) mmol/L Potassium 4.2 (3.5-5.1) mmol/L Chloride 91 L (98-107) mmol/L Carbon Dioxide 35 H (22-30) mmol/L BUN 59 H (7-17) mg/dL Creatinine 1.44 H (0.52-1.04) mg/dL Glucose 109 H (74-99) mg/dL Calcium 9.2 (8.4-10.2) mg/dL - Imaging Chest x-ray: report reviewed, image reviewed Assessment and Plan (1) Chronic atrial fibrillation Current Visit: Yes Status: Acute Code(s): I48.2 - CHRONIC ATRIAL FIBRILLATION SNOMED Code(s): 161167021 (2) Morbid obesity Current Visit: Yes Status: Acute Code(s): E66.01 - MORBID (SEVERE) OBESITY DUE TO EXCESS CALORIES SNOMED Code(s): 698023539 (3) MRSA pneumonia Current Visit: Yes Status: Acute Code(s): J15.212 - PNEUMONIA DUE TO METHICILLIN RESISTANT STAPHYLOCOCCUS AUREUS SNOMED Code(s): 927920045997706 (4) Hypotension Current Visit: Yes Status: Acute Code(s): I95.9 - HYPOTENSION, UNSPECIFIED SNOMED Code(s): 65209044 (5) C. difficile colitis Current Visit: Yes Status: Acute Code(s): A04.72 - ENTEROCOLITIS D/T CLOSTRIDIUM DIFFICILE, NOT SPCF RECUR SNOMED Code(s): 608880455 (6) Chronic hypoxemic respiratory failure Current Visit: Yes Status: Acute Code(s): J96.11 - CHRONIC RESPIRATORY FAILURE WITH HYPOXIA SNOMED Code(s): 982340443 (7) Acute respiratory failure Current Visit: Yes Status: Acute Priority: High Code(s): J96.00 - ACUTE RESPIRATORY FAILURE, UNSP W HYPOXIA OR HYPERCAPNIA SNOMED Code(s): 14876515 (8) COPD (chronic obstructive pulmonary disease) Current Visit: Yes Status: Acute Priority: High Code(s): J44.9 - CHRONIC OBSTRUCTIVE PULMONARY DISEASE, UNSPECIFIED SNOMED Code(s): 68432917 (9) Chronic renal insufficiency, stage III (moderate) Current Visit: Yes Status: Acute Code(s): N18.3 - CHRONIC KIDNEY DISEASE, STAGE 3 (MODERATE) SNOMED Code(s): 653814429 (10) Pressure ulcer of buttock Current Visit: Yes Status: Acute Code(s): L89.309 - PRESSURE ULCER OF UNSPECIFIED BUTTOCK, UNSPECIFIED STAGE SNOMED Code(s): 863451624 Plan: Patient was seen and examined. Her chart and diagnostics were reviewed. Patient was seen and examined by Dr. Bravo. The patient will be made nothing by mouth after midnight, a consent will be obtained for a tracheostomy and percutaneous endoscopic gastrostomy tube placement. The plan for tracheostomy and PEG tube placement for tomorrow. Hold heparin drip 2 hours prior to procedure. Continue GI and DVT prophylaxis. Continue pulmonary recommendations per Dr. Mcmullen. Thank you Dr. Mcmullen for this consult and we'll look forward to working with you in the care of your patient. Time with Patient: Greater than 30
--- NOTE | 2018-05-23 15:10 | P.PN ---
Subjective Progress Note Date: 05/23/18 Patient is still sedated on vent support which was reinitiated yesterday morning. Patient is still on low-dose Levophed to maintain renal perfusion and her blood pressure. Patient is on TPN for nutrition and on IV heparin for anticoagulation. Her heart rate is well controlled with amiodarone. Today her Sodium-129, WBC further higher at 31.7 K, and her renal function is on the decline. Chest x-ray report was reviewed and noted pulmonary edema/CHF and bilateral pulmonary effusions. Nurses reported no current issues with the patient. Patient is referred for tracheostomy and PEG tube placement per critical care. Unable to do review of systems due to patient's current critical condition. Objective - Vital Signs Vital signs: Vital Signs Temp 98.3 F 05/23/18 04:00 Pulse 102 H 05/23/18 14:00 Resp 19 05/23/18 14:00 BP 95/57 05/23/18 01:00 Pulse Ox 100 05/23/18 14:00 Intake & Output 05/22/18 05/23/18 05/23/18 18:59 06:59 18:59 Intake Total 1588.174 741.285 8961.293 Output Total 328 990 343 Balance 1260.174 -137.294 808.293 Weight 115 kg 115.9 kg 116.8 kg Intake: IV 588.26 16.66 566.64 Amiodarone 450 mg In 183.26 16.66 66.64 Dextrose 5% in Water 250 ml @ 0.5 MG/MIN 16.66 mls /hr IV .Q15H1M [facility] Rx#: [id number] Linezolid 600 mg In 300 Dextrose/Water 1 300ml. bag @ 150 mls/hr IVPB Q12HR [facility] Rx#:[id number] Magnesium Sulfate-D5w Pmx 100 1 gm In Dextrose/Water 1 100ml.bag @ 100 mls/hr IVPB ONCE ONE Rx#: [id number] Magnesium Sulfate-D5w Pmx 100 1 gm In Dextrose/Water 1 100ml.bag @ 100 mls/hr IVPB ONCE ONE Rx#: [id number] Parenteral Electrolytes 280 20 ml In Amino Acid 5%- D15w 1,000 ml @ 70 mls/hr IV .BY DURATION [facility] Rx#: [id number] Sodium Ferric Gluconat- 125 Sucrose 125 mg In Sodium Chloride 0.9% 100 ml @ 100 mls/hr IVPB DAILY [facility] Rx#:[id number] Intake, IV Titration 989.914 428.046 546.653 Amount Amiodarone 450 mg In 250 Dextrose 5% in Water 250 ml @ 0.5 MG/MIN 16.66 mls /hr IV .Q15H1M [facility] Rx#: [id number] Heparin Sod,Pork in 0.45% 449.952 346.765 NaCl 25,000 unit In 0.45 % NaCl 1 500ml.bag @ 9.8 UNITS/KG/HR 21.91 mls/hr IV .M08P09G [facility] Rx#: [id number] Linezolid 600 mg In 300 Dextrose/Water 1 300ml. bag @ 150 mls/hr IVPB Q12HR [facility] Rx#:[id number] Norepinephrine 16 mg In 39.962 17.671 27.438 Dextrose 5% in Water 250 ml @ Titrate IV .Q0M [facility] Rx#:[id number] Propofol 1,000 mg In 200.000 160.375 172.45 Empty Bag 1 bag @ Titrate IV .Q0M [facility] Rx#: [id number] Tube Feeding 318 38 Other 10 90 Output: Urine 328 990 343 Other: Voiding Method Indwelling Catheter Indwelling Catheter Indwelling Catheter ABP, PAP, CO, CI - Last Documented Arterial Blood Pressure 119/60 - Constitutional Constitutional Comment(s): Sedated on full vent support. - Respiratory Details: Course breath sounds bilaterally with coarse crackles centrally and decreased breath sound at the both bases. No wheezes heard. - Cardiovascular Details: Patient's heart sounds are muffled. Rhythm: irregularly irregular Heart sounds: normal: S1, S2 - Gastrointestinal Gastrointestinal Comment(s): Obese abdomen. General gastrointestinal: Present: normal bowel sounds, soft - Neurologic Neurologic Comment(s): Deferred. - Psychiatric Psychiatric Comment(s): deferred. - Labs CBC & Chem 7: 05/23/18 04:26 05/23/18 04:26 Labs: Abnormal Lab Results - Last 24 Hours (Table) 05/22/18 05/23/18 05/23/18 Range/Units 15:55 00:16 04:11 WBC (3.8-10.6) k/uL RBC (3.80-5.40) m/uL Hgb (11.4-16.0) gm/dL Hct (34.0-46.0) % MCHC (31.0-37.0) g/dL RDW (11.5-15.5) % Neutrophils # (Manual) (1.3-7.7) k/uL Monocytes # (Manual) (0-1.0) k/uL Basophils # (Manual) (0-0.2) k/uL Metamyelocytes # (Man) (0) k/uL APTT (22.0-30.0) sec ABG pCO2 63 H (35-45) mmHg ABG pO2 81 L (83-108) mmHg ABG HCO3 36 H (21-25) mmol/L ABG Total CO2 38 H (19-24) mmol/L Sodium (137-145) mmol/L Chloride (98-107) mmol/L Carbon Dioxide (22-30) mmol/L BUN (7-17) mg/dL Creatinine (0.52-1.04) mg/dL Glucose (74-99) mg/dL POC Glucose (mg/dL) 131 H 132 H (75-99) mg/dL 05/23/18 05/23/18 05/23/18 Range/Units 04:15 04:26 04:26 WBC (3.8-10.6) k/uL RBC (3.80-5.40) m/uL Hgb (11.4-16.0) gm/dL Hct (34.0-46.0) % MCHC (31.0-37.0) g/dL RDW (11.5-15.5) % Neutrophils # (Manual) (1.3-7.7) k/uL Monocytes # (Manual) (0-1.0) k/uL Basophils # (Manual) (0-0.2) k/uL Metamyelocytes # (Man) (0) k/uL APTT 71.3 H (22.0-30.0) sec ABG pCO2 (35-45) mmHg ABG pO2 (83-108) mmHg ABG HCO3 (21-25) mmol/L ABG Total CO2 (19-24) mmol/L Sodium 129 L (137-145) mmol/L Chloride 91 L (98-107) mmol/L Carbon Dioxide 35 H (22-30) mmol/L BUN 59 H (7-17) mg/dL Creatinine 1.44 H (0.52-1.04) mg/dL Glucose 109 H (74-99) mg/dL POC Glucose (mg/dL) 124 H (75-99) mg/dL 05/23/18 05/23/18 05/23/18 Range/Units 04:26 08:35 11:48 WBC 31.7 H* (3.8-10.6) k/uL RBC 2.93 L (3.80-5.40) m/uL Hgb 7.6 L (11.4-16.0) gm/dL Hct 25.2 L (34.0-46.0) % MCHC 30.4 L (31.0-37.0) g/dL RDW 19.6 H (11.5-15.5) % Neutrophils # (Manual) 27.20 H (1.3-7.7) k/uL Monocytes # (Manual) 1.90 H (0-1.0) k/uL Basophils # (Manual) 0.32 H (0-0.2) k/uL Metamyelocytes # (Man) 0.63 H (0) k/uL APTT (22.0-30.0) sec ABG pCO2 (35-45) mmHg ABG pO2 (83-108) mmHg ABG HCO3 (21-25) mmol/L ABG Total CO2 (19-24) mmol/L Sodium (137-145) mmol/L Chloride (98-107) mmol/L Carbon Dioxide (22-30) mmol/L BUN (7-17) mg/dL Creatinine (0.52-1.04) mg/dL Glucose (74-99) mg/dL POC Glucose (mg/dL) 140 H 128 H (75-99) mg/dL Microbiology - Last 24 Hours (Table) 05/22/18 05:45 Gram Stain - Preliminary Sputum Sputum Culture - Preliminary - Imaging and Cardiology Chest x-ray: report reviewed Assessment and Plan (1) Acute respiratory failure Current Visit: Yes Status: Acute Priority: High Code(s): J96.00 - ACUTE RESPIRATORY FAILURE, UNSP W HYPOXIA OR HYPERCAPNIA SNOMED Code(s): 54094572 (2) Sepsis Current Visit: Yes Status: Acute Priority: High Code(s): A41.9 - SEPSIS, UNSPECIFIED ORGANISM SNOMED Code(s): 59644225 (3) COPD (chronic obstructive pulmonary disease) Current Visit: Yes Status: Acute Priority: High Code(s): J44.9 - CHRONIC OBSTRUCTIVE PULMONARY DISEASE, UNSPECIFIED SNOMED Code(s): 67417885 (4) Chronic renal insufficiency, stage III (moderate) Current Visit: Yes Status: Acute Code(s): N18.3 - CHRONIC KIDNEY DISEASE, STAGE 3 (MODERATE) SNOMED Code(s): 653747994 (5) Congestive heart failure Current Visit: Yes Status: Acute Priority: High Code(s): I50.9 - HEART FAILURE, UNSPECIFIED SNOMED Code(s): 58615030 (6) Rapid atrial fibrillation Current Visit: Yes Status: Acute Code(s): I48.91 - UNSPECIFIED ATRIAL FIBRILLATION SNOMED Code(s): 365556978 Plan: Patient will be continued on full vent support and sedation with propofol, critical care, infectious disease, cardiology, nephrology services are on case and helping to provide the best care for the patient. Surgeries input appreciated as patient will be kept nothing by mouth was midnight for possible tracheostomy and PEG tube placement tomorrow. Overall patient condition is guarded and poor prognosis. Time with Patient: Less than 30
[2018-05-23 16:00] LABS: Glucose,Whole Blood 138 mg/dL (75-99)
[2018-05-23] MEDS: BISACODYL 10 MG SUPP RECTAL SCH (19:06)
[2018-05-23 19:53] LABS: Glucose,Whole Blood 117 mg/dL (75-99)
[2018-05-24 00:02] LABS: Glucose,Whole Blood 116 mg/dL (75-99)
[2018-05-24] MEDS: INSULIN ASPART 100 UNIT/ML 1 ML 10 ML VIAL SQ SCH ×6 (00:11→20:16)
[2018-05-24] MEDS: PROPOFOL 1,000 MG in EMPTY BAG 1 BAG IV SCH ×4 (00:12→19:03)
[2018-05-24 03:49] LABS: Glucose,Whole Blood 128 mg/dL (75-99)
[2018-05-24 04:12] LABS: Anisocytosis Moderate; Basophils # (A) 0.2 k/uL (0-0.2); Basophils % (A) 1 %; Eosinophils # (A) 0.2 k/uL (0-0.7); Eosinophils % (A) 1 %; HCT 22.8 % (34.0-46.0); Hypochromasia Marked; Lymphocytes % (A) 8 %; MCH 25.4 pg (25.0-35.0); MCV 84.6 fL (80.0-100.0); Mean Platelet Volume 8.9; Monocytes # (A) 1.4 k/uL (0-1.0); Monocytes % (A) 6 %; Neutrophils # (A) 20.6 k/uL (1.3-7.7); Neutrophils % (A) 83 %; Platelet Count 279 k/uL (150-450); RBC 2.69 m/uL (3.80-5.40); RDW 20.2 % (11.5-15.5); WBC 24.8 k/uL (3.8-10.6)
[2018-05-24] MEDS: IPRATROPIUM-ALBUTEROL 3 ML NEB INHALATION SCH ×6 (04:12→23:51)
[2018-05-24 04:24] LABS: Magnesium 1.9 mg/dL (1.6-2.3); Phosphorus 4.3 mg/dL (2.5-4.5); Potassium 3.9 mmol/L (3.5-5.1)
[2018-05-24 04:35] LABS: HGB 6.8 gm/dL (11.4-16.0)
[2018-05-24 04:59] LABS: ABG Base Excess 12.1 mmol/L; ABG HCO3 37 mmol/L (21-25); ABG Oxygen Saturation 98.9 % (94-97); ABG PCO2 59 mmHg (35-45); ABG PO2 103 mmHg (83-108); ABG TCO2 39 mmol/L (19-24)
[2018-05-24 05:10] LABS: Anisocytosis Moderate; HCT 22.4 % (34.0-46.0); Hypochromasia Marked; MCH 26.1 pg (25.0-35.0); MCHC 30.9 g/dL (31.0-37.0); MCV 84.4 fL (80.0-100.0); Mean Platelet Volume 9.5; Platelet Count 287 k/uL (150-450); Poikilocytosis Slight; RBC 2.65 m/uL (3.80-5.40); RDW 20.2 % (11.5-15.5); WBC 24.5 k/uL (3.8-10.6)
[2018-05-24 05:14] LABS: HGB 6.9 gm/dL (11.4-16.0)
[2018-05-24] MEDS: NOREPINEPHRINE 16 MG in DEXTROSE 5% IN WATER 250 ML IV SCH ×4 (05:18→19:05)
[2018-05-24] MEDS: MAGNESIUM SULFATE-D5W PMX 1 GM in DEXTROSE/WATER 1 100ML.BAG IVPB SCH ×2 (05:19→06:10)
[2018-05-24] MEDS: HEPARIN SOD,PORK IN 0.45% NACL 25,000 UNIT in 0.45% NACL 1 500ML.BAG IV SCH ×2 (05:37→15:08)
[2018-05-24] MEDS ORDERED: POTASSIUM BICARBONATE/CIT AC 20 MEQ TABLET.EFF NG-TUBE SCH (06:00)
[2018-05-24 08:13] LABS: Glucose,Whole Blood 148 mg/dL (75-99)
[2018-05-24] MEDS ORDERED: CEFEPIME 2 GM in SODIUM CHLORIDE 0.9% 50 ML IVPB SCH (09:00)
--- NOTE | 2018-05-24 09:07 | XR ---
EXAMINATION TYPE: XR chest 1V portable DATE OF EXAM: 05/24/2018 COMPARISON: 05/23/2018 INDICATION: Tube placement TECHNIQUE: Single frontal view of the chest is obtained. FINDINGS: The heart size is enlarged. The pulmonary vasculature is mildly prominent. Left lower lobe infiltrate is present. Small left pleural effusion is stable. There are multiple lines and catheters present. The endotracheal tube tip above the german is stable in position. The nasogastric tube transverses the thorax tip in left upper quadrant of the abdomen. R ight sided central venous catheter placement has tip in the proximal right atrium. EKG leads overlie the chest. IMPRESSION: 1. Cardiomegaly. 2. Left pleural effusion. 3. Prominence of the pulmonary vascular markings. 4. Stable lines and catheters discussed above
[2018-05-24] MEDS: PANTOPRAZOLE 40 MG/10 ML VIAL IV SCH (09:11)
[2018-05-24] MEDS: CHLORHEXIDINE GLUCONATE 15 ML CUP MUCOUS MEM SCH ×2 (09:14→21:28)
[2018-05-24] MEDS: LINEZOLID 600 MG in DEXTROSE/WATER 1 300ML.BAG IVPB SCH (09:14)
[2018-05-24 09:29] LABS: Anisocytosis Moderate; HCT 21.9 % (34.0-46.0); Hypochromasia Marked; MCH 26.8 pg (25.0-35.0); MCHC 31.3 g/dL (31.0-37.0); MCV 85.4 fL (80.0-100.0); Mean Platelet Volume 8.5; Platelet Count 283 k/uL (150-450); Poikilocytosis Slight; RBC 2.57 m/uL (3.80-5.40); RDW 20.1 % (11.5-15.5); WBC 24.3 k/uL (3.8-10.6)
--- NOTE | 2018-05-24 09:45 | P.PN ---
Subjective Patient is seen in follow-up for acute kidney injury. Unclear as to what her baseline renal function is. Creatinine stable at 1.3 today. Patient presented with weakness and was noted to be due to be in atrial fibrillation with RVR. Currently on amiodarone drip. She is on 13 mics of levophed. She is noted to have systolic CHF with ejection fraction of 30-35%. Patient was re-intubated on 05/22/18. Receiving tube feeds. Hgb 6.9 today. No active bleeding. Sodium 128. Vital signs are stable. General: The patient appeared well nourished and normally developed. HEENT: Head exam is unremarkable. Neck is without jugular venous distension. LUNGS: Breath sounds decreased. HEART: Irregular rate and rhythm. ABDOMEN: Abdominal exam reveals normal bowel sounds. Non-tender and non- distended. No evidence of peritonitis. EXTREMITITES: 1+ edema. Objective - Vital Signs Vital signs: Vital Signs Temp 97.9 F 05/24/18 04:00 Pulse 86 05/24/18 07:59 Resp 19 05/24/18 07:00 BP 91/47 05/24/18 00:00 Pulse Ox 100 05/24/18 07:00 Intake & Output 05/23/18 05/24/18 05/24/18 18:59 06:59 18:59 Intake Total 3323.720 3839.771 138 Output Total 593 1750 75 Balance 1285.196 21.771 63 Weight 116.8 kg 118 kg Intake: IV 666.60 316.66 Amiodarone 450 mg In 166.60 16.66 Dextrose 5% in Water 250 ml @ 0.5 MG/MIN 16.66 mls /hr IV .Q15H1M [facility] Rx#: [id number] Linezolid 600 mg In 300 300 Dextrose/Water 1 300ml. bag @ 150 mls/hr IVPB Q12HR [facility] Rx#:[id number] Magnesium Sulfate-D5w Pmx 100 1 gm In Dextrose/Water 1 100ml.bag @ 100 mls/hr IVPB ONCE ONE Rx#: [id number] Magnesium Sulfate-D5w Pmx 100 1 gm In Dextrose/Water 1 100ml.bag @ 100 mls/hr IVPB ONCE ONE Rx#: [id number] Intake, IV Titration 665.596 747.111 100 Amount Amiodarone 450 mg In 250 Dextrose 5% in Water 250 ml @ 0.5 MG/MIN 16.66 mls /hr IV .Q15H1M [facility] Rx#: [id number] Heparin Sod,Pork in 0.45% 346.765 NaCl 25,000 unit In 0.45 % NaCl 1 500ml.bag @ 9.8 UNITS/KG/HR 21.91 mls/hr IV .[id number] [facility] Rx#: [id number] Magnesium Sulfate-D5w Pmx 100 100 1 gm In Dextrose/Water 1 100ml.bag @ 100 mls/hr IVPB Q1H [facility] Rx#: [id number] Norepinephrine 16 mg In 64.875 111.291 Dextrose 5% in Water 250 ml @ Titrate IV .Q0M [facility] Rx#:[id number] Propofol 1,000 mg In 253.956 285.82 Empty Bag 1 bag @ Titrate IV .Q0M [facility] Rx#: [id number] Oral 40 Tube Feeding 456 608 38 Other 90 60 Output: Urine 593 1750 75 Other: Voiding Method Indwelling Catheter Indwelling Catheter # Voids 1 ABP, PAP, CO, CI - Last Documented Arterial Blood Pressure 107/49 - Labs CBC & Chem 7: 05/24/18 05:05 05/24/18 04:00 Labs: Abnormal Lab Results - Last 24 Hours (Table) 05/23/18 05/23/18 05/23/18 Range/Units 11:48 15:57 19:52 WBC (3.8-10.6) k/uL RBC (3.80-5.40) m/uL Hgb (11.4-16.0) gm/dL Hct (34.0-46.0) % MCHC (31.0-37.0) g/dL RDW (11.5-15.5) % Neutrophils # (1.3-7.7) k/uL Monocytes # (0-1.0) k/uL APTT (22.0-30.0) sec ABG pCO2 (35-45) mmHg ABG HCO3 (21-25) mmol/L ABG Total CO2 (19-24) mmol/L ABG O2 Saturation (94-97) % Sodium (137-145) mmol/L Chloride (98-107) mmol/L Carbon Dioxide (22-30) mmol/L BUN (7-17) mg/dL Creatinine (0.52-1.04) mg/dL Glucose (74-99) mg/dL POC Glucose (mg/dL) 128 H 138 H 117 H (75-99) mg/dL 05/24/18 05/24/18 05/24/18 Range/Units 00:00 03:48 04:00 WBC (3.8-10.6) k/uL RBC (3.80-5.40) m/uL Hgb (11.4-16.0) gm/dL Hct (34.0-46.0) % MCHC (31.0-37.0) g/dL RDW (11.5-15.5) % Neutrophils # (1.3-7.7) k/uL Monocytes # (0-1.0) k/uL APTT (22.0-30.0) sec ABG pCO2 (35-45) mmHg ABG HCO3 (21-25) mmol/L ABG Total CO2 (19-24) mmol/L ABG O2 Saturation (94-97) % Sodium 128 L (137-145) mmol/L Chloride 89 L (98-107) mmol/L Carbon Dioxide 34 H (22-30) mmol/L BUN 62 H (7-17) mg/dL Creatinine 1.30 H (0.52-1.04) mg/dL Glucose 119 H (74-99) mg/dL POC Glucose (mg/dL) 116 H 128 H (75-99) mg/dL 05/24/18 05/24/18 05/24/18 Range/Units 04:00 04:00 04:58 WBC 24.8 H (3.8-10.6) k/uL RBC 2.69 L (3.80-5.40) m/uL Hgb 6.8 L* (11.4-16.0) gm/dL Hct 22.8 L (34.0-46.0) % MCHC 30.0 L (31.0-37.0) g/dL RDW 20.2 H (11.5-15.5) % Neutrophils # 20.6 H (1.3-7.7) k/uL Monocytes # 1.4 H (0-1.0) k/uL APTT 60.7 H (22.0-30.0) sec ABG pCO2 59 H (35-45) mmHg ABG HCO3 37 H (21-25) mmol/L ABG Total CO2 39 H (19-24) mmol/L ABG O2 Saturation 98.9 H (94-97) % Sodium (137-145) mmol/L Chloride (98-107) mmol/L Carbon Dioxide (22-30) mmol/L BUN (7-17) mg/dL Creatinine (0.52-1.04) mg/dL Glucose (74-99) mg/dL POC Glucose (mg/dL) (75-99) mg/dL 05/24/18 05/24/18 Range/Units 05:05 08:11 WBC 24.5 H (3.8-10.6) k/uL RBC 2.65 L (3.80-5.40) m/uL Hgb 6.9 L* (11.4-16.0) gm/dL Hct 22.4 L (34.0-46.0) % MCHC 30.9 L (31.0-37.0) g/dL RDW 20.2 H (11.5-15.5) % Neutrophils # (1.3-7.7) k/uL Monocytes # (0-1.0) k/uL APTT (22.0-30.0) sec ABG pCO2 (35-45) mmHg ABG HCO3 (21-25) mmol/L ABG Total CO2 (19-24) mmol/L ABG O2 Saturation (94-97) % Sodium (137-145) mmol/L Chloride (98-107) mmol/L Carbon Dioxide (22-30) mmol/L BUN (7-17) mg/dL Creatinine (0.52-1.04) mg/dL Glucose (74-99) mg/dL POC Glucose (mg/dL) 148 H (75-99) mg/dL Microbiology - Last 24 Hours (Table) 05/22/18 05:45 Gram Stain - Preliminary Sputum Sputum Culture - Preliminary Gram Neg Bacilli Assessment and Plan Plan: Assessment: 1. Nonoliguric acute kidney injury secondary to ATN secondary to hemodynamic instability along with component of cardiorenal syndrome. Unclear as to what her baseline renal function is. Creatinine stable at 1.3 today. No proteinuria noted on urinalysis. 2. Atrial fibrillation with RVR, maintained on IV amiodarone. 3. Systolic CHF with ejection fraction of 30-35%. 4. Hypotension, on 13 mics of levophed. 5. Volume overload. Improving. 6. Hypokalemia secondary to diuresis. Magnesium replete. Improved. 7. Hyponatremia secondary to acute kidney injury, poor solute intake. Hypervolemic maintained on IV lasix. 8. MRSA in bronchial washings maintained on IV abx per ID. Vanco discontinued. Sputum culture positive for gram-negative bacilli. 9. Anemia. Iron deficiency noted - s/p 3 doses of IV iron. Hgb 6.9 today. Plan: Continue lasix 40 IV bid. Maintain TFs - minimal water flushes due to hyponatremia. Avoid nephrotoxic agents and hypotensive episodes. Continue to monitor renal function and urine output. Scheduled to receive 2 units of blood transfusion today. Wean vasopressors and FiO2. Potential trach/peg.
[2018-05-24 10:00] LABS: HGB 6.9 gm/dL (11.4-16.0)
[2018-05-24] MEDS ORDERED: CLINDAMYCIN 600 MG in DEXTROSE 5% IN WATER 50 ML IVPB ONE ×2 (10:00)
--- NOTE | 2018-05-24 10:11 | P.PN ---
Subjective Progress Note Date: 05/24/18 Principal diagnosis: respiratory distress Patient is a 67-year-old female multiple medical problems including CKD stage III, type 2 diabetes mellitus, diastolic heart failure, COPD with chronic CO2 retention chronic O2 dependence on 3L and nocturnal BiPAP, chronic atrial fibrillation on Eliquis was brought into emergency department due to respiratory distress. He was intubated in the emergency department. She was initially found have an elevated BNP and slightly elevated troponin. She was started on Solu-Medrol and Lasix in the ER and then developed A. fib with RVR. When this happen her respiratory status worsened and she was subsequently intubated. She was started on a Cardizem and Lasix drip. Follow-up chest x- ray after intubation showed worsening pulmonary edema and small bilateral pleural effusions. She was seen by pulmonary critical care on the morning of 05/11 and had a central line and a left brachial Artline placed. Infectious disease was consulted as patient had been placed on aztreonam and vancomycin secondary to ALLERGIES. She developed acute hypotension and required being placed on IV vasopressors. Repeat echocardiogram was performed which showed an ejection fraction of 30-35% which was worse from prior. Infectious disease found her to have multiple decubitus ulcers as well as mild cellulitis of the left leg. She had been placed on IV amio for arrhythmia and this was transitioned to oral amio on 05/14. They recommended continuing Azactam and vancomycin. On 05/14 her chest x-ray showed worsening volume loss in the left lower lobe. She subsequently underwent bronchoscopy. Pulmonary was concerned for worsening pneumonia that could be healthcare associated and added cefepime in addition to the Azactam and vancomycin. She has been seen by nephrology as her creatinine had been increasing with use of the Lasix drip. Nephrology discontinued Lasix. She was extubated on the morning of 05/15. Overnight she required BiPAP (typical for her) and was unable to wean off BiPAP on the morning of 05/16. On the morning of 05/16 her creatinine was slightly better but she was lethargic and showing a worsening chest x-ray. She was given an additional dose of Lasix. Her bronchoscopy ultimately grew out MRSA. She was continued on vancomycin until she completed her course. That she was unable to take anything by mouth due to requiring extensive BiPAP after extubation she was started again on IV amiodarone and heparin. She again required intubation on 05/22 in the helmet hat br[facility] due to respiratory distress and profound hypoxemia. She also required being restarted on IV vasopressors. She had increasing white blood cell count was then started on clindamycin. Patient seen and examined at bedside. She is currently sedated and on vent. Nursing present at bedside. No acute events overnight. Plan is likely for trach and PEG in a.m. but needs to be stabilized off pressors. Patient's blood count was lower this morning at 6.9. She has been ordered 2 units of packed red blood cells. Objective - Vital Signs Vital signs: Vital Signs Temp 97.9 F 05/24/18 04:00 Pulse 86 05/24/18 07:59 Resp 19 05/24/18 07:00 BP 91/47 05/24/18 00:00 Pulse Ox 100 05/24/18 07:00 Intake & Output 05/23/18 05/24/18 05/24/18 18:59 06:59 18:59 Intake Total 0039.971 1714.771 138 Output Total 593 1750 75 Balance 1285.196 21.771 63 Weight 116.8 kg 118 kg Intake: IV 666.60 316.66 Amiodarone 450 mg In 166.60 16.66 Dextrose 5% in Water 250 ml @ 0.5 MG/MIN 16.66 mls /hr IV .Q15H1M [facility] Rx#: [id number] Linezolid 600 mg In 300 300 Dextrose/Water 1 300ml. bag @ 150 mls/hr IVPB Q12HR [facility] Rx#:[id number] Magnesium Sulfate-D5w Pmx 100 1 gm In Dextrose/Water 1 100ml.bag @ 100 mls/hr IVPB ONCE ONE Rx#: [id number] Magnesium Sulfate-D5w Pmx 100 1 gm In Dextrose/Water 1 100ml.bag @ 100 mls/hr IVPB ONCE ONE Rx#: [id number] Intake, IV Titration 665.596 747.111 100 Amount Amiodarone 450 mg In 250 Dextrose 5% in Water 250 ml @ 0.5 MG/MIN 16.66 mls /hr IV .Q15H1M [facility] Rx#: [id number] Heparin Sod,Pork in 0.45% 346.765 NaCl 25,000 unit In 0.45 % NaCl 1 500ml.bag @ 9.8 UNITS/KG/HR 21.91 mls/hr IV .[id number] [facility] Rx#: [id number] Magnesium Sulfate-D5w Pmx 100 100 1 gm In Dextrose/Water 1 100ml.bag @ 100 mls/hr IVPB Q1H [facility] Rx#: [id number] Norepinephrine 16 mg In 64.875 111.291 Dextrose 5% in Water 250 ml @ Titrate IV .Q0M [facility] Rx#:[id number] Propofol 1,000 mg In 253.956 285.82 Empty Bag 1 bag @ Titrate IV .Q0M [facility] Rx#: [id number] Oral 40 Tube Feeding 456 608 38 Other 90 60 Output: Urine 593 1750 75 Other: Voiding Method Indwelling Catheter Indwelling Catheter # Voids 1 ABP, PAP, CO, CI - Last Documented Arterial Blood Pressure 107/49 - Exam General: Ill Appearing, moderate distress, morbidly obese, appears at stated age Derm: warm, dry, dressing in place over left lower extremity wound Head: atraumatic, normocephalic, symmetric Eyes: EOMI, no lid lag, anicteric sclera Mouth: no lip lesion, mucus membranes moist Cardiovascular: S1S2 reg, no murmur, positive posterior tibial pulse bilateral, Lungs: Coarse breath sounds bilaterally, no rhonchi, no rales , no accessory muscle use, on 10 Abdominal: soft, nontender to palpation, no guarding, organs unable to be palpated Ext: no gross muscle atrophy, 2+ pitting edema, no contractures Neuro: CN II-XI grossly intact, not moving any 4 extremities currently blood per nursing moving all 4 extremities Psych: On vent - Labs CBC & Chem 7: 05/24/18 09:15 05/24/18 04:00 Labs: Abnormal Lab Results - Last 24 Hours (Table) 05/23/18 05/23/18 05/23/18 Range/Units 11:48 15:57 19:52 WBC (3.8-10.6) k/uL RBC (3.80-5.40) m/uL Hgb (11.4-16.0) gm/dL Hct (34.0-46.0) % MCHC (31.0-37.0) g/dL RDW (11.5-15.5) % Neutrophils # (1.3-7.7) k/uL Monocytes # (0-1.0) k/uL APTT (22.0-30.0) sec ABG pCO2 (35-45) mmHg ABG HCO3 (21-25) mmol/L ABG Total CO2 (19-24) mmol/L ABG O2 Saturation (94-97) % Sodium (137-145) mmol/L Chloride (98-107) mmol/L Carbon Dioxide (22-30) mmol/L BUN (7-17) mg/dL Creatinine (0.52-1.04) mg/dL Glucose (74-99) mg/dL POC Glucose (mg/dL) 128 H 138 H 117 H (75-99) mg/dL 05/24/18 05/24/18 05/24/18 Range/Units 00:00 03:48 04:00 WBC (3.8-10.6) k/uL RBC (3.80-5.40) m/uL Hgb (11.4-16.0) gm/dL Hct (34.0-46.0) % MCHC (31.0-37.0) g/dL RDW (11.5-15.5) % Neutrophils # (1.3-7.7) k/uL Monocytes # (0-1.0) k/uL APTT (22.0-30.0) sec ABG pCO2 (35-45) mmHg ABG HCO3 (21-25) mmol/L ABG Total CO2 (19-24) mmol/L ABG O2 Saturation (94-97) % Sodium 128 L (137-145) mmol/L Chloride 89 L (98-107) mmol/L Carbon Dioxide 34 H (22-30) mmol/L BUN 62 H (7-17) mg/dL Creatinine 1.30 H (0.52-1.04) mg/dL Glucose 119 H (74-99) mg/dL POC Glucose (mg/dL) 116 H 128 H (75-99) mg/dL 05/24/18 05/24/18 05/24/18 Range/Units 04:00 04:00 04:58 WBC 24.8 H (3.8-10.6) k/uL RBC 2.69 L (3.80-5.40) m/uL Hgb 6.8 L* (11.4-16.0) gm/dL Hct 22.8 L (34.0-46.0) % MCHC 30.0 L (31.0-37.0) g/dL RDW 20.2 H (11.5-15.5) % Neutrophils # 20.6 H (1.3-7.7) k/uL Monocytes # 1.4 H (0-1.0) k/uL APTT 60.7 H (22.0-30.0) sec ABG pCO2 59 H (35-45) mmHg ABG HCO3 37 H (21-25) mmol/L ABG Total CO2 39 H (19-24) mmol/L ABG O2 Saturation 98.9 H (94-97) % Sodium (137-145) mmol/L Chloride (98-107) mmol/L Carbon Dioxide (22-30) mmol/L BUN (7-17) mg/dL Creatinine (0.52-1.04) mg/dL Glucose (74-99) mg/dL POC Glucose (mg/dL) (75-99) mg/dL 05/24/18 05/24/18 05/24/18 Range/Units 05:05 08:11 09:15 WBC 24.5 H 24.3 H (3.8-10.6) k/uL RBC 2.65 L 2.57 L (3.80-5.40) m/uL Hgb 6.9 L* 6.9 L* (11.4-16.0) gm/dL Hct 22.4 L 21.9 L (34.0-46.0) % MCHC 30.9 L (31.0-37.0) g/dL RDW 20.2 H 20.1 H (11.5-15.5) % Neutrophils # (1.3-7.7) k/uL Monocytes # (0-1.0) k/uL APTT (22.0-30.0) sec ABG pCO2 (35-45) mmHg ABG HCO3 (21-25) mmol/L ABG Total CO2 (19-24) mmol/L ABG O2 Saturation (94-97) % Sodium (137-145) mmol/L Chloride (98-107) mmol/L Carbon Dioxide (22-30) mmol/L BUN (7-17) mg/dL Creatinine (0.52-1.04) mg/dL Glucose (74-99) mg/dL POC Glucose (mg/dL) 148 H (75-99) mg/dL Microbiology - Last 24 Hours (Table) 05/22/18 05:45 Gram Stain - Preliminary Sputum Sputum Culture - Preliminary Gram Neg Bacilli Assessment and Plan Assessment: Pneumonia, likely healthcare, growing out -Now currently growing stenotrophomonas and has been transitioned to Bactrim today -Pulmonary and infectious disease recommendations -Pulmonary hygiene -Fully treated staph pneumonia -Check blood cultures Hyponatremia-hypervolemic -Continue Lasix -Follow sodiums -Nephrology recommendations: Minimal water flushes due to hyponatremia with tube feeds Anemia, worsening with iron deficiency -2 units of packed red blood cells today - monitor for signs of bleeding - Appears to have iron deficiency anemia, status post 3 doses of IV iron Acute systolic CHF exacerbation with ejection fraction 30-35% -On IV Lasix -Ideally will need to be on an ALEJA inhibitor but cannot tolerate secondary to renal failure and hypotension -Ideally beta carola but currently on vasopressors due to hypotension BASIA on CKD stage III with hyponatremia -Lasix - nephrology following - renal dose medications - avoid additional nephrotoxic agents P. A. fib with RVR -On oral amiodarone - on heparin gtt Acute on chronic hypoxic hypercapnic respiratory failure due to obesity hypoventilation syndrome and pneumonia -Vent management per pulmonary critical care Morbid obesity BMI 42 - structured outpatient weight loss Stage III decubitus ulcers with possible mild cellulitis -ID recs - off load - barrier cream COPD without exacerbation - pulm following - bronchdilators Acute on chronic debility -Physical therapy evaluation 1 respiratory status stable Resolved: septic shock A fib with RVR Subacute diarrhea Hypoglycemia, resolved DVT prophylaxis: heparin gtt Discussed with: nursing, Dr. Laws Anticipated discharge: 3-[address]: Likely will need SNF A total of 35 minutes was spent on the care of this complex patient more than 50 % of the time was spent in counseling and care coordination.
[2018-05-24 11:11] LABS: ABG PCO2 70 mmHg (35-45)
[2018-05-24 11:12] LABS: ABG PCO2 71 mmHg (35-45)
[2018-05-24] MEDS: ASPIRIN 325 MG TAB PO SCH (11:38)
[2018-05-24] MEDS: BISACODYL 10 MG SUPP RECTAL SCH (11:40)
[2018-05-24 11:55] LABS: Glucose,Whole Blood 167 mg/dL (75-99)
[2018-05-24 12:28] LABS: Appearance,Urine Turbid (Clear); Bacteria,Urine Many /hpf; Bilirubin,Urine Negative (Negative); Blood,Urine Large (Negative); Color,Urine Yellow; Glucose,Urine (UA) Negative (Negative); Ketones,Urine Negative (Negative); Leukocyte Esterase,Urine Large (Negative); Nitrite,Urine Negative (Negative); PH, Urine 5.5 (5.0-8.0); Protein,Urine 1+ (Negative); RBC,Urine 173 /hpf (0-5); Specific Gravity,Urine 1.013 (1.001-1.035); Urobilinogen,Urine <2.0 mg/dL (<2.0)
[2018-05-24] MEDS: AMIODARONE 450 MG in DEXTROSE 5% IN WATER 250 ML IV SCH ×2 (13:10)
--- NOTE | 2018-05-24 14:18 | P.PN ---
Subjective Progress Note Date: 05/24/18 On today's evaluation of 05/24/2018, the patient is intubated on a mechanical ventilator. She is sedated with Diprivan. Earlier this morning she was on 20 mics of the prevent and she was able to arouse open up her eyes and moving extremities. She is on a mechanical ventilator assist control mode and this morning she assist control of 20 with a tidal volume of 400 and FiO2 of 40% and a PEEP of 5. The chest x-ray showing a left lower lobe consolidation. The blood gases showing a pH of 7.4 with a pCO2 of 59 and pO2 of 103 this was on FiO2 of 40%. The patient has been intubated. The patient has no significant orotracheal secretions. Sputum samples were sent is showing gram-negative bacillus which turns out to be a stenotrophomonas and insistent to IV Fortaz. I 'm assuming this to be also resistant to cefepime. The patient was effective in the past with MRSA and current antibiotic coverage including a combination of cefepime and Zyvox. Hemodynamically, the patient is hypotensive. The patient is currently on pressors and the patient is on 13 mics of norepinephrine infusion for hemodynamic support. The white cell count went as high as 31.7 and currently is down to 24.3. The patient was found to have a low hemoglobin this morning at 6.9. No evidence of any acute bleeding. She'll be given a total of 2 units of packed RBCs. Cardiothoracic surgery has been consulted in consultation for PEG and trach within next 24 hours. Meanwhile, the patient is tolerating her tube feeds. The renal function is stable and continues to improve. She is producing adequate amount of urine output. Her net fluid balance is positive over the past 24 hours. She remains in atrial fibrillation. The patient remains in a amiodarone drip. The patient is also IV heparin. Echocardiogram at shown impairment LV function with an ejection fraction of 30-35% and right ventricular being mildly enlarged and moderate degree of pulmonary hypertension. Objective - Vital Signs Vital signs: Vital Signs Temp 97.3 F L 05/24/18 13:55 Pulse 89 05/24/18 13:55 Resp 20 05/24/18 13:55 BP 105/58 05/24/18 13:55 Pulse Ox 98 05/24/18 13:55 Intake & Output 05/23/18 05/24/1805/24/18 18:59 06:59 18:59 Intake Total 3756.847 8440.771 1517.038 Output Total 593 1750 525 Balance 1285.196 21.771 992.038 Weight 116.8 kg 118 kg 118 kg Intake: IV 666.60 316.66 433.5 Amiodarone 450 mg In 166.60 16.66 83.5 Dextrose 5% in Water 250 ml @ 0.5 MG/MIN 16.66 mls /hr IV .Q15H1M [facility] Rx#: [id number] Cefepime 2 gm In Sodium 50 Chloride 0.9% 50 ml @ 100 mls/hr IVPB Q12HR [facility] Rx #:[id number] Linezolid 600 mg In 300 300 300 Dextrose/Water 1 300ml. bag @ 150 mls/hr IVPB Q12HR [facility] Rx#:[id number] Magnesium Sulfate-D5w Pmx 100 1 gm In Dextrose/Water 1 100ml.bag @ 100 mls/hr IVPB ONCE ONE Rx#: [id number] Magnesium Sulfate-D5w Pmx 100 1 gm In Dextrose/Water 1 100ml.bag @ 100 mls/hr IVPB ONCE ONE Rx#: [id number] Intake, IV Titration 665.596 747.111 485.538 Amount Amiodarone 450 mg In 250 219.635 Dextrose 5% in Water 250 ml @ 0.5 MG/MIN 16.66 mls /hr IV .Q15H1M [facility] Rx#: [id number] Heparin Sod,Pork in 0.45% 346.765 NaCl 25,000 unit In 0.45 % NaCl 1 500ml.bag @ 9.8 UNITS/KG/HR 21.91 mls/hr IV .[id number] [facility] Rx#: [id number] Magnesium Sulfate-D5w Pmx 100 100 1 gm In Dextrose/Water 1 100ml.bag @ 100 mls/hr IVPB Q1H [facility] Rx#: [id number] Norepinephrine 16 mg In 64.875 111.291 65.903 Dextrose 5% in Water 250 ml @ Titrate IV .Q0M [facility] Rx#:[id number] Propofol 1,000 mg In 253.956 285.82 100 Empty Bag 1 bag @ Titrate IV .Q0M [facility] Rx#: [id number] Oral 40 Tube Feeding 456 608 228 Blood Product 310 Rc As-1 Unit 0 [id number] Rc As-1 Unit 310 [id number] Other 90 60 60 Output: Urine 593 1750 525 Other: Voiding Method Indwelling Catheter Indwelling Catheter # Voids 1 ABP, PAP, CO, CI - Last Documented Arterial Blood Pressure 118/63 - Exam Gen. appearance obese, comfortable, lethargic, intubated on a mechanical ventilator at this point in time and sedated Head exam was generally normal. There was no scleral icterus or corneal arcus. Mucous membranes were moist. Neck was supple and without jugular venous distension, thyromegaly, or carotid bruits. Carotids were easily palpable bilaterally. There was no adenopathy. The patient has a right IJ triple-lumen catheter in place. Lungs sounds are diminished bilaterally along with some few scattered external wheezes heard throughout the lung loyd. Breath sounds are overall diminished. Heart sounds are irregular S1-S2, no cervical murmurs appreciated. Monitor the current heave or thrill. Abdomen is obese soft nontender. Organs cannot be accurately palpated. No direct tenderness. No rebound tenderness. No guarding. Extremities revealed +1 pitting edema and there is no cyanosis or clubbing at this point. No evidence of any acute cellulitis although there is some erythema in the left lower extremity. Skin shows a stage II small wounds i the back area. No open wounds or sores. No evidence of any cellulitis. Neurologically patient is lethargic yet arousable. She is moving all 4 extremities without any limitation. Pupils are equal reactive to light. No focal logical deficits. No facial asymmetry. No nystagmus. - Labs CBC & Chem 7: 05/24/18 09:15 05/24/18 04:00 Labs: Abnormal Lab Results - Last 24 Hours (Table) 05/22/18 05/22/18 05/23/18 Range/Units 04:55 05:48 15:57 WBC (3.8-10.6) k/uL RBC (3.80-5.40) m/uL Hgb (11.4-16.0) gm/dL Hct (34.0-46.0) % MCHC (31.0-37.0) g/dL RDW (11.5-15.5) % Neutrophils # (1.3-7.7) k/uL Monocytes # (0-1.0) k/uL APTT (22.0-30.0) sec ABG pCO2 70 H* 71 H* (35-45) mmHg ABG HCO3 (21-25) mmol/L ABG Total CO2 (19-24) mmol/L ABG O2 Saturation (94-97) % Sodium (137-145) mmol/L Chloride (98-107) mmol/L Carbon Dioxide (22-30) mmol/L BUN (7-17) mg/dL Creatinine (0.52-1.04) mg/dL Glucose (74-99) mg/dL POC Glucose (mg/dL) 138 H (75-99) mg/dL Urine Appearance (Clear) Urine Protein (Negative) Urine Blood (Negative) Ur Leukocyte Esterase (Negative) Urine RBC (0-5) /hpf Urine WBC (0-5) /hpf Urine WBC Clumps (None) /hpf Urine Bacteria (None) /hpf Crossmatch 05/23/18 05/24/18 05/24/18 Range/Units 19:52 00:00 03:48 WBC (3.8-10.6) k/uL RBC (3.80-5.40) m/uL Hgb (11.4-16.0) gm/dL Hct (34.0-46.0) % MCHC (31.0-37.0) g/dL RDW (11.5-15.5) % Neutrophils # (1.3-7.7) k/uL Monocytes # (0-1.0) k/uL APTT (22.0-30.0) sec ABG pCO2 (35-45) mmHg ABG HCO3 (21-25) mmol/L ABG Total CO2 (19-24) mmol/L ABG O2 Saturation (94-97) % Sodium (137-145) mmol/L Chloride (98-107) mmol/L Carbon Dioxide (22-30) mmol/L BUN (7-17) mg/dL Creatinine (0.52-1.04) mg/dL Glucose (74-99) mg/dL POC Glucose (mg/dL) 117 H 116 H 128 H (75-99) mg/dL Urine Appearance (Clear) Urine Protein (Negative) Urine Blood (Negative) Ur Leukocyte Esterase (Negative) Urine RBC (0-5) /hpf Urine WBC (0-5) /hpf Urine WBC Clumps (None) /hpf Urine Bacteria (None) /hpf Crossmatch 05/24/18 05/24/18 05/24/18 Range/Units 04:00 04:00 04:00 WBC 24.8 H (3.8-10.6) k/uL RBC 2.69 L (3.80-5.40) m/uL Hgb 6.8 L* (11.4-16.0) gm/dL Hct 22.8 L (34.0-46.0) % MCHC 30.0 L (31.0-37.0) g/dL RDW 20.2 H (11.5-15.5) % Neutrophils # 20.6 H (1.3-7.7) k/uL Monocytes # 1.4 H (0-1.0) k/uL APTT 60.7 H (22.0-30.0) sec ABG pCO2 (35-45) mmHg ABG HCO3 (21-25) mmol/L ABG Total CO2 (19-24) mmol/L ABG O2 Saturation (94-97) % Sodium 128 L (137-145) mmol/L Chloride 89 L (98-107) mmol/L Carbon Dioxide 34 H (22-30) mmol/L BUN 62 H (7-17) mg/dL Creatinine 1.30 H (0.52-1.04) mg/dL Glucose 119 H (74-99) mg/dL POC Glucose (mg/dL) (75-99) mg/dL Urine Appearance (Clear) Urine Protein (Negative) Urine Blood (Negative) Ur Leukocyte Esterase (Negative) Urine RBC (0-5) /hpf Urine WBC (0-5) /hpf Urine WBC Clumps (None) /hpf Urine Bacteria (None) /hpf Crossmatch 05/24/18 05/24/18 05/24/18 Range/Units 04:58 05:05 08:11 WBC 24.5 H (3.8-10.6) k/uL RBC 2.65 L (3.80-5.40) m/uL Hgb 6.9 L* (11.4-16.0) gm/dL Hct 22.4 L (34.0-46.0) % MCHC 30.9 L (31.0-37.0) g/dL RDW 20.2 H (11.5-15.5) % Neutrophils # (1.3-7.7) k/uL Monocytes # (0-1.0) k/uL APTT (22.0-30.0) sec ABG pCO2 59 H (35-45) mmHg ABG HCO3 37 H (21-25) mmol/L ABG Total CO2 39 H (19-24) mmol/L ABG O2 Saturation 98.9 H (94-97) % Sodium (137-145) mmol/L Chloride (98-107) mmol/L Carbon Dioxide (22-30) mmol/L BUN (7-17) mg/dL Creatinine (0.52-1.04) mg/dL Glucose (74-99) mg/dL POC Glucose (mg/dL) 148 H (75-99) mg/dL Urine Appearance (Clear) Urine Protein (Negative) Urine Blood (Negative) Ur Leukocyte Esterase (Negative) Urine RBC (0-5) /hpf Urine WBC (0-5) /hpf Urine WBC Clumps (None) /hpf Urine Bacteria (None) /hpf Crossmatch 05/24/18 05/24/18 05/24/18 Range/Units 09:15 09:15 11:54 WBC 24.3 H (3.8-10.6) k/uL RBC 2.57 L (3.80-5.40) m/uL Hgb 6.9 L* (11.4-16.0) gm/dL Hct 21.9 L (34.0-46.0) % MCHC (31.0-37.0) g/dL RDW 20.1 H (11.5-15.5) % Neutrophils # (1.3-7.7) k/uL Monocytes # (0-1.0) k/uL APTT (22.0-30.0) sec ABG pCO2 (35-45) mmHg ABG HCO3 (21-25) mmol/L ABG Total CO2 (19-24) mmol/L ABG O2 Saturation (94-97) % Sodium (137-145) mmol/L Chloride (98-107) mmol/L Carbon Dioxide (22-30) mmol/L BUN (7-17) mg/dL Creatinine (0.52-1.04) mg/dL Glucose (74-99) mg/dL POC Glucose (mg/dL) 167 H (75-99) mg/dL Urine Appearance (Clear) Urine Protein (Negative) Urine Blood (Negative) Ur Leukocyte Esterase (Negative) Urine RBC (0-5) /hpf Urine WBC (0-5) /hpf Urine WBC Clumps (None) /hpf Urine Bacteria (None) /hpf Crossmatch See Detail 05/24/18 Range/Units 12:19 WBC (3.8-10.6) k/uL RBC (3.80-5.40) m/uL Hgb (11.4-16.0) gm/dL Hct (34.0-46.0) % MCHC (31.0-37.0) g/dL RDW (11.5-15.5) % Neutrophils # (1.3-7.7) k/uL Monocytes # (0-1.0) k/uL APTT (22.0-30.0) sec ABG pCO2 (35-45) mmHg ABG HCO3 (21-25) mmol/L ABG Total CO2 (19-24) mmol/L ABG O2 Saturation (94-97) % Sodium (137-145) mmol/L Chloride (98-107) mmol/L Carbon Dioxide (22-30) mmol/L BUN (7-17) mg/dL Creatinine (0.52-1.04) mg/dL Glucose (74-99) mg/dL POC Glucose (mg/dL) (75-99) mg/dL Urine Appearance Turbid H (Clear) Urine Protein 1+ H (Negative) Urine Blood Large H (Negative) Ur Leukocyte Esterase Large H (Negative) Urine RBC 173 H (0-5) /hpf Urine WBC 569 H (0-5) /hpf Urine WBC Clumps Many H (None) /hpf Urine Bacteria Many H (None) /hpf Crossmatch Microbiology - Last 24 Hours (Table) 05/22/18 05:45 Gram Stain - Final Sputum Sputum Culture - Final Stenotrophomonas maltophilia Assessment and Plan Plan: Assessment 1 acute on top of chronic hypoxic and hypercapnic respiratory failure. Patient initially presented with a MRSA left lower lobe pneumonia. Most recent sputum analysis showing stenotrophomonas and the patient failed initial extubation and currently she is intubated on assist control mode of mechanical ventilation. 2 MRSA pneumonia of the left lower lobe with subsequent gross with stenotrophomonas. We'll add Bactrim and will monitor the renal function very closely. 3 acute hypotension and the patient is looking more septic as the patient is was resuscitated and the patient is currently pressor dependent with leukocytosis a new microorganism in her lungs/stenotrophomonas. In addition, the patient has an ejection fraction of 30-35% 4 CHF with an ejection fraction of 30-35% and moderate degree of pulmonary hypertension. The patient has obvious systolic dysfunction 5 chronic kidney failure with stage III kidney disease and an acute kidney injury on top of chronic renal failure, likely secondary to hypotension, cardiorenal factors versus sepsis. The patient's urine output is improved. Renal function continues to improve in the creatinine is down to 1.3 6 stage III chronic decubitus ulceration without evidence of an acute cellulitis 7 morbid obesity with a BMI 41.0 8 chronic atrial fibrillation and the patient is on IV heparin drip and IV amiodarone for now 9 coronary artery disease 10 recent hospitalization for diarrhea/C. diff colitis and the stool analysis was negative and the patient completed the course of deficit on outpatient basis 11 hypertension 12 degenerative arthritis and sciatica and chronic shoulder and back pain and knee pain and the patient has been wheelchair bound 13 COPD 14 chronic anemia with interval drop in hemoglobin down to 6.9 without evidence of any acute bleeding Plan Will add Bactrim to cover stenotrophomonas in the lungs. We'll give the patient total of 2 units of packed RBC. We'll continue tube feeds. Continue pressors. Continue vent support. Atelectatic discussion with the patient's family and I think we are ready to proceed with PEG and trach once the patient is more hemodynamically stable. Consent will be obtained. Tentatively the procedure will be done tomorrow by Dr. Bravo. Otherwise, we'll continue the rest of the supportive care. Condition remains critical. His atrial fibrillation was done and 35 minutes including discussion done with the family and the family including both of the daughters was fully updated on her condition. I think long-term prognosis poor baseline above-mentioned comorbidities. Time with Patient: Greater than 30
[2018-05-24 16:07] LABS: Glucose,Whole Blood 85 mg/dL (75-99)
[2018-05-24] MEDS: DEXTROSE 5% IVPB SCH ×4 (17:37→21:28)
[2018-05-24] MEDS: SULFAMETHOX TMP IVPB SCH ×4 (17:37→21:28)
[2018-05-24] MEDS: WATER IVPB SCH ×4 (17:37→21:28)
--- NOTE | 2018-05-24 18:41 | P.PN ---
Subjective Progress Note Date: 05/24/18 This is a 67-year-old morbidly obese female that came into the emergency center yesterday with shortness of breath and lethargy. Patient apparently has been bedbound for the past 3 weeks due to shortness of breath. Patient has not been eating very much and also had diarrhea. She was treated outpatient with deficit and completed the course and was then placed on antidiarrheal agent. She was admitted 2 months ago at [facility] for heart failure. She required intubation in the emergency center. She was also found to have atrial fibrillation with RVR is currently on amiodarone drip. Cardiology is following. Nephrology is also following for acute kidney injury with BUN 44 and creatinine 2.59. Patient presented with leukocytosis but afebrile. Troponins were mildly elevated at 0.046, 0.049, 0.047. Albumin 2.6, TSH 1.550. C. difficile toxin was negative. Urinalysis was cloudy, leukoesterase large, WBC 33 and bacteria rare. Blood issuing no growth at 24 hours and urine culture is in progress. Patient is currently on norepinephrine, Lasix drip, amiodarone drip, heparin drip and sedation. He guarding antibiotics patient is on Azactam and vancomycin. Initial x-ray shows mild cardiomegaly and interstitial prominence. Correlate for heart failure and mild pulmonary vascular congestion. Small to moderate left and trace left pleural effusions with adjacent atelectasis and/or consolidation. Repeat chest x-ray this morning reveals improved aeration of the right upper lung. Haziness of the right hemidiaphragm likely represents a new trace right pleural effusion. Persistent retrocardiac obesity is favored to represent a small pleural effusion and left basilar atelectasis. Overall stable lines and tubes. Echocardiogram reveals EF of 3035%, moderate concentric left ventricular hypertrophy, elderly severely dilated, mild mitral regurgitation, moderate tricuspid regurgitation, moderate pulmonary hypertension. Regarding wounds, patient has stage II decubitus ulcer on the right buttocks, left hip and the shear-type injury to the right hip area there is mild cellulitis to the left pretibial area. Patient's bowel movements are currently soft. 05/14/2018 patient remains intubated sedated and mechanically ventilated but is now with a marked reduction in the amount of vasopressor therapy. Her sedation holiday earlier today was successful. However she had significant secretions on bronchoscopy was performed in large amounts of purulent secretions were suctioned. She is comfortable at this time. 05/15/2018. The patient is now extubated. We'll likely be on BiPAP overnight. Vasopressor therapy has been weaned and has almost completely been discontinued. 05/17/2018 patient extubated but remains BiPAP dependent. She is arousable but not highly interactive. Is complaining of some itchy skin other than this has no improvement. Patient remains extubated at 05/18/2018 but is BiPAP dependent however delivered oxygen level is now down to 24% and she is comfortable. Her lower extremity edema is improving. TPN is started no plans for tracheostomy or PEG tube 05/21/2018 patient has had a bit of a better day. She was on BiPAP for over 5 hours and tolerated it relatively well. His follow study was performed showing evidence the ability to swallow and she was given some medications orally with some applesauce. Although she is still quite short of breath doing well with BiPAP this evening without other new acute complaints. 05/24/2018 reveals the patient's significant decline over the weekend. Respiratory status acutely worsened requiring intubation. The nursing staff relate that there may not be a change in status and that the family may want tracheostomy and PEG tube placement. The ICU team is trying to have a family meeting to ensure meeting of the patient's wishes. Objective - Vital Signs Vital signs: Vital Signs Temp 98.4 F 05/24/18 16:39 Pulse 72 05/24/18 16:39 Resp 20 05/24/18 16:39 BP 105/57 05/24/18 16:39 Pulse Ox 100 05/24/18 16:39 Intake & Output 05/23/18 05/24/18 05/24/18 18:59 06:59 18:59 Intake Total 0002.229 4456.771 2637.038 Output Total 593 1750 625 Balance 1285.196 21.771 2011.038 Weight 116.8 kg 118 kg 118 kg Intake: IV 666.60 316.66 433.5 Amiodarone 450 mg In 166.60 16.66 83.5 Dextrose 5% in Water 250 ml @ 0.5 MG/MIN 16.66 mls /hr IV .Q15H1M [facility] Rx#: [id number] Cefepime 2 gm In Sodium 50 Chloride 0.9% 50 ml @ 100 mls/hr IVPB Q12HR [facility] Rx #:[id number] Linezolid 600 mg In 300 300 300 Dextrose/Water 1 300ml. bag @ 150 mls/hr IVPB Q12HR [facility] Rx#:[id number] Magnesium Sulfate-D5w Pmx 100 1 gm In Dextrose/Water 1 100ml.bag @ 100 mls/hr IVPB ONCE ONE Rx#: [id number] Magnesium Sulfate-D5w Pmx 100 1 gm In Dextrose/Water 1 100ml.bag @ 100 mls/hr IVPB ONCE ONE Rx#: [id number] Intake, IV Titration 665.596 747.111 985.538 Amount Amiodarone 450 mg In 250 219.635 Dextrose 5% in Water 250 ml @ 0.5 MG/MIN 16.66 mls /hr IV .Q15H1M [facility] Rx#: [id number] Heparin Sod,Pork in 0.45% 346.765 500 NaCl 25,000 unit In 0.45 % NaCl 1 500ml.bag @ 9.8 UNITS/KG/HR 21.91 mls/hr IV .D34H10A [facility] Rx#: [id number] Magnesium Sulfate-D5w Pmx 100 100 1 gm In Dextrose/Water 1 100ml.bag @ 100 mls/hr IVPB Q1H [facility] Rx#: [id number] Norepinephrine 16 mg In 64.875 111.291 65.903 Dextrose 5% in Water 250 ml @ Titrate IV .Q0M [facility] Rx#:[id number] Propofol 1,000 mg In 253.956 285.82 100 Empty Bag 1 bag @ Titrate IV .Q0M [facility] Rx#: [id number] Oral 40 Tube Feeding 456 608 508 Blood Product 620 Rc As-1 Unit 310 [id number] Rc As-1 Unit 310 [id number] Other 90 60 90 Output: Urine 593 1750 625 Other: Voiding Method Indwelling Catheter Indwelling Catheter Indwelling Catheter # Voids 1 ABP, PAP, CO, CI - Last Documented Arterial Blood Pressure 108/62 - Exam Gen: This is a morbidly obese 67-year-old female. she is now reintubated, receiving tube feeds are all gastric tube. Highly sedated and comfortable HEENT: Head is atraumatic, normocephalic. Pupils equal, round. Sclerae is anicteric. Conjunctiva slightly pale. Mucous members of the mouth are dry. Oral gastric tube and ET tube in place. NECK: Supple. No JVD. No lymphadenopathy. No thyromegaly. LUNGS:symmetrical air entry is noted. Diminished breath sounds the bilateral bases, expiratory wheezes are scattered HEART: Irregularly irregular rate and rhythm. No murmur. ABDOMEN: Currently obese. Soft. Bowel sounds are present. No masses. No tenderness. No significant redness under her abdominal fold or breast. InterDry and nystatin powder in place. EXTREMITIES: persistent bilateral pedal edema. Waffle-type boots in place. facial erythema resolving NEUROLOGICAL: intubated and sedated - Labs CBC & Chem 7: 05/24/18 09:15 05/24/18 04:00 Labs: Abnormal Lab Results - Last 24 Hours (Table) 05/22/18 05/22/18 05/23/18 Range/Units 04:55 05:48 19:52 WBC (3.8-10.6) k/uL RBC (3.80-5.40) m/uL Hgb (11.4-16.0) gm/dL Hct (34.0-46.0) % MCHC (31.0-37.0) g/dL RDW (11.5-15.5) % Neutrophils # (1.3-7.7) k/uL Monocytes # (0-1.0) k/uL APTT (22.0-30.0) sec ABG pCO2 70 H* 71 H* (35-45) mmHg ABG HCO3 (21-25) mmol/L ABG Total CO2 (19-24) mmol/L ABG O2 Saturation (94-97) % Sodium (137-145) mmol/L Chloride (98-107) mmol/L Carbon Dioxide (22-30) mmol/L BUN (7-17) mg/dL Creatinine (0.52-1.04) mg/dL Glucose (74-99) mg/dL POC Glucose (mg/dL) 117 H (75-99) mg/dL Urine Appearance (Clear) Urine Protein (Negative) Urine Blood (Negative) Ur Leukocyte Esterase (Negative) Urine RBC (0-5) /hpf Urine WBC (0-5) /hpf Urine WBC Clumps (None) /hpf Urine Bacteria (None) /hpf Crossmatch 05/24/18 05/24/18 05/24/18 Range/Units 00:00 03:48 04:00 WBC (3.8-10.6) k/uL RBC (3.80-5.40) m/uL Hgb (11.4-16.0) gm/dL Hct (34.0-46.0) % MCHC (31.0-37.0) g/dL RDW (11.5-15.5) % Neutrophils # (1.3-7.7) k/uL Monocytes # (0-1.0) k/uL APTT (22.0-30.0) sec ABG pCO2 (35-45) mmHg ABG HCO3 (21-25) mmol/L ABG Total CO2 (19-24) mmol/L ABG O2 Saturation (94-97) % Sodium 128 L (137-145) mmol/L Chloride 89 L (98-107) mmol/L Carbon Dioxide 34 H (22-30) mmol/L BUN 62 H (7-17) mg/dL Creatinine 1.30 H (0.52-1.04) mg/dL Glucose 119 H (74-99) mg/dL POC Glucose (mg/dL) 116 H 128 H (75-99) mg/dL Urine Appearance (Clear) Urine Protein (Negative) Urine Blood (Negative) Ur Leukocyte Esterase (Negative) Urine RBC (0-5) /hpf Urine WBC (0-5) /hpf Urine WBC Clumps (None) /hpf Urine Bacteria (None) /hpf Crossmatch 05/24/18 05/24/18 05/24/18 Range/Units 04:00 04:00 04:58 WBC 24.8 H (3.8-10.6) k/uL RBC 2.69 L (3.80-5.40) m/uL Hgb 6.8 L* (11.4-16.0) gm/dL Hct 22.8 L (34.0-46.0) % MCHC 30.0 L (31.0-37.0) g/dL RDW 20.2 H (11.5-15.5) % Neutrophils # 20.6 H (1.3-7.7) k/uL Monocytes # 1.4 H (0-1.0) k/uL APTT 60.7 H (22.0-30.0) sec ABG pCO2 59 H (35-45) mmHg ABG HCO3 37 H (21-25) mmol/L ABG Total CO2 39 H (19-24) mmol/L ABG O2 Saturation 98.9 H (94-97) % Sodium (137-145) mmol/L Chloride (98-107) mmol/L Carbon Dioxide (22-30) mmol/L BUN (7-17) mg/dL Creatinine (0.52-1.04) mg/dL Glucose (74-99) mg/dL POC Glucose (mg/dL) (75-99) mg/dL Urine Appearance (Clear) Urine Protein (Negative) Urine Blood (Negative) Ur Leukocyte Esterase (Negative) Urine RBC (0-5) /hpf Urine WBC (0-5) /hpf Urine WBC Clumps (None) /hpf Urine Bacteria (None) /hpf Crossmatch 05/24/18 05/24/18 05/24/18 Range/Units 05:05 08:11 09:15 WBC 24.5 H 24.3 H (3.8-10.6) k/uL RBC 2.65 L 2.57 L (3.80-5.40) m/uL Hgb 6.9 L* 6.9 L* (11.4-16.0) gm/dL Hct 22.4 L 21.9 L (34.0-46.0) % MCHC 30.9 L (31.0-37.0) g/dL RDW 20.2 H 20.1 H (11.5-15.5) % Neutrophils # (1.3-7.7) k/uL Monocytes # (0-1.0) k/uL APTT (22.0-30.0) sec ABG pCO2 (35-45) mmHg ABG HCO3 (21-25) mmol/L ABG Total CO2 (19-24) mmol/L ABG O2 Saturation (94-97) % Sodium (137-145) mmol/L Chloride (98-107) mmol/L Carbon Dioxide (22-30) mmol/L BUN (7-17) mg/dL Creatinine (0.52-1.04) mg/dL Glucose (74-99) mg/dL POC Glucose (mg/dL) 148 H (75-99) mg/dL Urine Appearance (Clear) Urine Protein (Negative) Urine Blood (Negative) Ur Leukocyte Esterase (Negative) Urine RBC (0-5) /hpf Urine WBC (0-5) /hpf Urine WBC Clumps (None) /hpf Urine Bacteria (None) /hpf Crossmatch 05/24/18 05/24/18 05/24/18 Range/Units 09:15 11:54 12:19 WBC (3.8-10.6) k/uL RBC (3.80-5.40) m/uL Hgb (11.4-16.0) gm/dL Hct (34.0-46.0) % MCHC (31.0-37.0) g/dL RDW (11.5-15.5) % Neutrophils # (1.3-7.7) k/uL Monocytes # (0-1.0) k/uL APTT (22.0-30.0) sec ABG pCO2 (35-45) mmHg ABG HCO3 (21-25) mmol/L ABG Total CO2 (19-24) mmol/L ABG O2 Saturation (94-97) % Sodium (137-145) mmol/L Chloride (98-107) mmol/L Carbon Dioxide (22-30) mmol/L BUN (7-17) mg/dL Creatinine (0.52-1.04) mg/dL Glucose (74-99) mg/dL POC Glucose (mg/dL) 167 H (75-99) mg/dL Urine Appearance Turbid H (Clear) Urine Protein 1+ H (Negative) Urine Blood Large H (Negative) Ur Leukocyte Esterase Large H (Negative) Urine RBC 173 H (0-5) /hpf Urine WBC 569 H (0-5) /hpf Urine WBC Clumps Many H (None) /hpf Urine Bacteria Many H (None) /hpf Crossmatch See Detail Microbiology - Last 24 Hours (Table) 05/14/18 10:05 Fungal Culture - Preliminary Bronchial Washings - Left 05/22/18 05:45 Gram Stain - Final Sputum Sputum Culture - Final Stenotrophomonas maltophilia Laboratory Results WBC 24.3 k/uL (3.8-10.6) H 05/24/18 09:15 RBC 2.57 m/uL (3.80-5.40) L 05/24/18 09:15 Hgb 6.9 gm/dL (11.4-16.0) L* 05/24/18 09:15 Hct 21.9 % (34.0-46.0) L 05/24/18 09:15 MCV 85.4 fL (80.0-100.0) 05/24/18 09:15 MCH 26.8 pg (25.0-35.0) 05/24/18 09:15 MCHC 31.3 g/dL (31.0-37.0) 05/24/18 09:15 RDW 20.1 % (11.5-15.5) H 05/24/18 09:15 Plt Count 283 k/uL (150-450) 05/24/18 09:15 Neutrophils % 83 % 05/24/18 04:00 Neutrophils % (Manual) 82 % 05/23/18 04:26 Band Neutrophils % 4 % 05/23/18 04:26 Lymphocytes % 8 % 05/24/18 04:00 Lymphocytes % (Manual) 6 % 05/23/18 04:26 Monocytes % 6 % 05/24/18 04:00 Monocytes % (Manual) 6 % 05/23/18 04:26 Eosinophils % 1 % 05/24/18 04:00 Eosinophils % (Manual) 1 % 05/23/18 04:26 Basophils % 1 % 05/24/18 04:00 Basophils % (Manual) 1 % 05/23/18 04:26 Metamyelocytes % 2 % 05/23/18 04:26 Myelocytes % 6 % 05/22/18 06:05 Neutrophils # 20.6 k/uL (1.3-7.7) H 05/24/18 04:00 Neutrophils # (Manual) 27.20 k/uL (1.3-7.7) H 05/23/18 04:26 Lymphocytes # 2.0 k/uL (1.0-4.8) 05/24/18 04:00 Lymphocytes # (Manual) 1.90 k/uL (1.0-4.8) 05/23/18 04:26 Monocytes # 1.4 k/uL (0-1.0) H 05/24/18 04:00 Monocytes # (Manual) 1.90 k/uL (0-1.0) H 05/23/18 04:26 Eosinophils # 0.2 k/uL (0-0.7) 05/24/18 04:00 Eosinophils # (Manual) 0.32 k/uL (0-0.7) 05/23/18 04:26 Basophils # 0.2 k/uL (0-0.2) 05/24/18 04:00 Basophils # (Manual) 0.32 k/uL (0-0.2) H 05/23/18 04:26 Metamyelocytes # (Man) 0.63 k/uL (0) H 05/23/18 04:26 Myelocytes # (Manual) 1.78 k/uL (0) H 05/22/18 06:05 Nucleated RBCs 0 /100 WBC (0-0) 05/23/18 04:26 Manual Slide Review Performed 05/23/18 04:26 Large Platelets Present 05/23/18 04:26 Polychromasia Present 05/21/18 04:51 Hypochromasia Marked 05/24/18 09:15 Poikilocytosis Slight 05/24/18 09:15 Anisocytosis Moderate 05/24/18 09:15 PT 11.2 sec (9.0-12.0) 05/11/18 15:00 INR 1.2 (<1.2) H 05/11/18 15:00 APTT 60.7 sec (22.0-30.0) H 05/24/18 04:00 D-Dimer 0.57 mg/L FEU (<0.60) 05/11/18 15:00 Sample Site [place] 05/24/18 04:58 ABG pH 7.40 (7.35-7.45) 05/24/18 04:58 ABG pCO2 59 mmHg (35-45) H 05/24/18 04:58 ABG pO2 103 mmHg (83-108) 05/24/18 04:58 ABG HCO3 37 mmol/L (21-25) H 05/24/18 04:58 ABG Total CO2 39 mmol/L (19-24) H 05/24/18 04:58 ABG O2 Saturation 98.9 % (94-97) H 05/24/18 04:58 ABG Base Excess 12.1 mmol/L 05/24/18 04:58 Juancarlos Test Yes 05/24/18 04:58 FiO2 40 % 05/24/18 04:58 Sodium 128 mmol/L (137-145) L 05/24/18 04:00 Potassium 3.9 mmol/L (3.5-5.1) 05/24/18 04:00 Chloride 89 mmol/L (98-107) L 05/24/18 04:00 Carbon Dioxide 34 mmol/L (22-30) H 05/24/18 04:00 Anion Gap 5 mmol/L 05/24/18 04:00 BUN 62 mg/dL (7-17) H 05/24/18 04:00 Creatinine 1.30 mg/dL (0.52-1.04) H 05/24/18 04:00 Est GFR (CKD-EPI)AfAm 50 (>60 ml/min/1.73 sqM) 05/24/18 04:00 Est GFR (CKD-EPI)NonAf 43 (>60 ml/min/1.73 sqM) 05/24/18 04:00 Glucose 119 mg/dL (74-99) H 05/24/18 04:00 POC Glucose (mg/dL) 85 mg/dL (75-99) 05/24/18 16:05 POC Glu [employer] ID Anyi Omer 05/24/18 16:05 Plasma Lactic Acid Terence 1.9 mmol/L (0.7-2.0) 05/11/18 15:00 Calcium 9.0 mg/dL (8.4-10.2) 05/24/18 04:00 Ionized Calcium Marcelina 4.6 mg/dL (4.5-5.3) 05/19/18 05:15 Phosphorus 4.3 mg/dL (2.5-4.5) 05/24/18 04:00 Magnesium 1.9 mg/dL (1.6-2.3) 05/24/18 04:00 Iron 13 ug/dL (50-170) L 05/16/18 03:45 TIBC 199 ug/dL (228-460) L 05/16/18 03:45 Iron Saturation 6.53 (12.00-45.00) L 05/16/18 03:45 Ferritin 79.5 ng/mL (10.0-291.0) 08/12/18 03:45 Total Bilirubin 0.4 mg/dL (0.2-1.3) 05/11/18 15:00 AST 16 U/L (14-36) 05/11/18 15:00 ALT 30 U/L (9-52) 05/11/18 15:00 Alkaline Phosphatase 128 U/L (38-126) H 05/11/18 15:00 Total Creatine Kinase 40 U/L (30-135) 05/11/18 15:00 CK-MB (CK-2) 1.2 ng/mL (0.0-2.4) 05/11/18 15:00 CK-MB (CK-2) Rel Index 3.0 05/11/18 15:00 Troponin I 0.047 ng/mL (0.000-0.034) H* 05/12/18 03:06 NT-Pro-B Natriuret Pep 5490 pg/mL 05/11/18 15:00 Total Protein 4.9 g/dL (6.3-8.2) L 05/11/18 15:00 Albumin 2.6 g/dL (3.5-5.0) L 05/11/18 15:00 Triglycerides 123 mg/dL (<150) 05/19/18 05:15 TSH 3.890 mIU/L (0.465-4.680) 05/18/18 04:10 Cortisol 11 ug/dL 05/15/18 04:40 Urine Color Yellow 05/24/18 12:19 Urine Appearance Turbid (Clear) H 05/24/18 12:19 Urine pH 5.5 (5.0-8.0) 05/24/18 12:19 Ur Specific [place] 1.013 (1.001-1.035) 05/24/18 12:19 Urine Protein 1+ (Negative) H 05/24/18 12:19 Urine Glucose (UA) Negative (Negative) 05/24/18 12:19 Urine Ketones Negative (Negative) 05/24/18 12:19 Urine Blood Large (Negative) H 05/24/18 12:19 Urine Nitrite Negative (Negative) 05/24/18 12:19 Urine Bilirubin Negative (Negative) 05/24/18 12:19 Urine Urobilinogen <2.0 mg/dL (<2.0) 05/24/18 12:19 Ur Leukocyte Esterase Large (Negative) H 05/24/18 12:19 Urine RBC 173 /hpf (0-5) H 05/24/18 12:19 Urine WBC 569 /hpf (0-5) H 05/24/18 12:19 Urine WBC Clumps Many /hpf (None) H 05/24/18 12:19 Ur Squamous Epith Cells <1 /hpf (0-4) 05/11/18 23:45 Amorphous Sediment Rare /hpf (None) H 05/11/18 23:45 Urine Bacteria Many /hpf (None) H 05/24/18 12:19 Hyaline Casts 49 /lpf (0-2) H 05/11/18 23:45 Urine Mucus Rare /hpf (None) H 05/11/18 23:45 Random Vancomycin 24.3 ug/mL 05/23/18 04:26 C. difficile (EIA) Intrp Negative (Negative) 05/12/18 08:53 Virus Source See Below 05/14/18 10:05 Viral Test See Below 05/14/18 10:05 Virus Analysis Interp See Below 05/14/18 10:05 Blood Type A Positive 05/24/18 09:15 Blood Type Confirm A Positive 05/24/18 05:05 Blood Type Recheck CABO Indicated 05/24/18 09:15 Antibody Screen NEGATIVE 05/24/18 09:15 Crossmatch See Detail 05/24/18 09:15 Spec Expiration Date 05/27/2018 - 231405/24/18 09:15 Microbiology 05/14/18 10:05 Bronchial Washings - Left Fungal Culture - Preliminary 05/22/18 05:45 Sputum Gram Stain - Final 05/22/18 05:45 Sputum Sputum Culture - Final Stenotrophomonas maltophilia 05/11/18 15:00 Blood Blood Culture - Final No Growth after 144 hours 05/14/18 10:05 Bronchial Washings - Left Gram Stain - Final 05/14/18 10:05 Bronchial Washings - Left Bronchial Washings Culture - Final Methicillin resist S. aureus 05/14/18 10:05 Bronchial Washings - Left Acid Fast Bacilli Smear - Final 05/14/18 10:05 Bronchial Washings - Left Acid Fast Bacilli Culture - Preliminary 05/11/18 23:45 Urine,Catheterized Urine Culture - Final Assessment and Plan (1) Acute respiratory failure Current Visit: Yes Status: Acute Priority: High Code(s): J96.00 - ACUTE RESPIRATORY FAILURE, UNSP W HYPOXIA OR HYPERCAPNIA SNOMED Code(s): 11876610 (2) COPD (chronic obstructive pulmonary disease) Current Visit: Yes Status: Acute Priority: High Code(s): J44.9 - CHRONIC OBSTRUCTIVE PULMONARY DISEASE, UNSPECIFIED SNOMED Code(s): 23405880 (3) Pressure ulcer of buttock Narrative/Plan: 67-year-old presents to Hospital with respiratory failure she is now extubated and is showing improvement. The Mepilex dressing is applied to the coccyx wound. The patient's bronchoscopy reveals evidence of staph and antimicrobial therapy is being utilized with Azactam and vancomycin pending further data. She does seem to be improving but appears she will need to be on BiPAP overnight which is unusual for her at home. She does appear to have a poor prognosis. 05/17/2018 patient is extubated but is requiring ongoing BiPAP therapy due to her ongoing respiratory difficulties, she is only on 40% FiO2 but desaturates rapidly when the positive pressure ventilation is removed. Pulmonary critical care is working with the family as to overall plan. Because of the current status she is not able to eat pretty because she is so short of breath and secondly did not pass a bedside swallow test. Her prognosis is poor. MRSA pneumonia and has been found continue vancomycin at this time, cefepime will be discontinued in the morning if no further positive cultures are found. 05/18/2018 patient remains extubated but BiPAP dependent but is on 24% FiO2. Patient is comfortable and there are plans for TPN but no plans for tracheostomy or PEG tube. We'll discontinue cefepime since only MRSA has been grown from her sputum with MRSA pneumonia as the etiology of her current sepsis and respiratory failure. 05/21/2018 patient remains extubated and comfortable on the BiPAP. Did have a 5 hour break today. Her renal failure is improved. She has evidence of MRSA pneumonia. And with her improvement with complete her course of vancomycin therapy with closely monitoring her troughs and monitoring for any further renal toxicity. She the norepinephrine as well as agents that make Zyvox not compatible. 05/24/2018as noted in the sputum culture now has stenotrophomonas maltophilia which is fortunate susceptible to Bactrim. The prior MRSA isolate from the sputum was also Bactrim susceptible and escalate antimicrobial therapy is changed to intravenous trimethoprim sulfamethoxazole and dose was communicated to pharmacy. Renal function will be monitored. As noted family meeting is trying to be arranged so that most appropriate plans will be developed regarding her overall discharge course. Current Visit: Yes Status: Acute Code(s): L89.309 - PRESSURE ULCER OF UNSPECIFIED BUTTOCK, UNSPECIFIED STAGE SNOMED Code(s): 094720410
[2018-05-24 18:50] LABS: Anisocytosis Slight; HCT 28.2 % (34.0-46.0); Hypochromasia Marked; MCH 27.2 pg (25.0-35.0); MCHC 31.3 g/dL (31.0-37.0); MCV 86.9 fL (80.0-100.0); Mean Platelet Volume 8.4; Platelet Count 278 k/uL (150-450); Poikilocytosis Slight; RBC 3.25 m/uL (3.80-5.40); RDW 18.8 % (11.5-15.5); WBC 22.9 k/uL (3.8-10.6)
[2018-05-24 18:54] LABS: HGB 8.8 gm/dL (11.4-16.0)
[2018-05-24 20:03] LABS: Glucose,Whole Blood 130 mg/dL (75-99)
[2018-05-24] MEDS ORDERED: SULFAMETHOX TMP IVPB SCH ×2 (21:00)
[2018-05-24] MEDS ORDERED: WATER IVPB SCH ×2 (21:00)
[2018-05-24] MEDS ORDERED: DEXTROSE 5% IVPB SCH ×2 (21:00)
[2018-05-25 00:03] LABS: Glucose,Whole Blood 127 mg/dL (75-99)
[2018-05-25] MEDS: INSULIN ASPART 100 UNIT/ML 1 ML 10 ML VIAL SQ SCH ×7 (00:04→23:50)
[2018-05-25] MEDS: PROPOFOL 1,000 MG in EMPTY BAG 1 BAG IV SCH ×2 (00:06→08:51)
[2018-05-25] MEDS: IPRATROPIUM-ALBUTEROL 3 ML NEB INHALATION SCH ×6 (03:24→23:43)
[2018-05-25 04:10] LABS: Glucose,Whole Blood 78 mg/dL (75-99)
[2018-05-25 04:10] LABS: Glucose,Whole Blood 64 mg/dL (75-99)
[2018-05-25 05:22] LABS: ABG Base Excess 8.5 mmol/L; ABG HCO3 33 mmol/L (21-25); ABG Oxygen Saturation 98.5 % (94-97); ABG PCO2 55 mmHg (35-45); ABG PH 7.39 (7.35-7.45); ABG PO2 101 mmHg (83-108); ABG TCO2 35 mmol/L (19-24)
[2018-05-25] MEDS ORDERED: DEXTROSE 50%-WATER 50 ML SYRINGE IVP ONE (05:38)
[2018-05-25 05:39] LABS: Glucose,Whole Blood 67 mg/dL (75-99)
[2018-05-25] MEDS: AMIODARONE 450 MG in DEXTROSE 5% IN WATER 250 ML IV SCH ×2 (05:42)
[2018-05-25 06:02] LABS: Glucose,Whole Blood 164 mg/dL (75-99)
[2018-05-25 06:14] LABS: Anisocytosis Slight; Basophils # (A) 0.1 k/uL (0-0.2); Basophils % (A) 1 %; Eosinophils # (A) 0.1 k/uL (0-0.7); Eosinophils % (A) 1 %; HCT 27.6 % (34.0-46.0); HGB 8.6 gm/dL (11.4-16.0); Hypochromasia Marked; Lymphocytes # (A) 1.3 k/uL (1.0-4.8); Lymphocytes % (A) 7 %; MCH 27.4 pg (25.0-35.0); MCV 88.1 fL (80.0-100.0); Mean Platelet Volume 8.4; Monocytes # (A) 0.7 k/uL (0-1.0); Monocytes % (A) 4 %; Neutrophils # (A) 15.9 k/uL (1.3-7.7); Neutrophils % (A) 86 %; Platelet Count 261 k/uL (150-450); Poikilocytosis Moderate; RBC 3.13 m/uL (3.80-5.40); WBC 18.4 k/uL (3.8-10.6)
[2018-05-25 06:29] LABS: Calcium 8.7 mg/dL (8.4-10.2); Phosphorus 4.9 mg/dL (2.5-4.5); Potassium 4.1 mmol/L (3.5-5.1)
[2018-05-25 08:19] LABS: Glucose,Whole Blood 88 mg/dL (75-99)
--- NOTE | 2018-05-25 08:19 | XR ---
EXAMINATION TYPE: XR chest 1V portable DATE OF EXAM: 05/25/2018 CLINICAL HISTORY: Difficulty breathing progress study. TECHNIQUE: Single AP portable semiupright view of the chest is obtained. COMPARISON: Chest x-ray from one day earlier and older studies FINDINGS: An endotracheal tube and orogastric tube as well as right subclavian central venous cathet er are all stable in appearance. There is redemonstration of cardiomegaly with small to moderate-size d left pleural effusion and small to tiny right pleural effusion. There is background chronic parench ymal change with associated bibasilar atelectasis and/or infiltrates. Upper lungs remain clear withou t pneumothorax. Chronic subluxation right glenohumeral joint is redemonstrated. IMPRESSION: Overall stable findings, cardiomegaly and chronic parenchymal changes with small left g reater than right pleural effusions and associated bibasilar atelectasis and/or infiltrates all redem onstrated.
[2018-05-25] MEDS: DEXTROSE 5% IVPB SCH ×4 (08:39→22:12)
[2018-05-25] MEDS: WATER IVPB SCH ×4 (08:39→22:12)
[2018-05-25] MEDS: SULFAMETHOX TMP IVPB SCH ×4 (08:39→22:12)
[2018-05-25] MEDS: CHLORHEXIDINE GLUCONATE 15 ML CUP MUCOUS MEM SCH ×2 (08:41→21:35)
[2018-05-25] MEDS: PANTOPRAZOLE 40 MG/10 ML VIAL IV SCH (08:41)
--- NOTE | 2018-05-25 09:00 | P.PN ---
Subjective Progress Note Date: 05/25/18 On today's evaluation of 05/24/2018, the patient is intubated on a mechanical ventilator. She is sedated with Diprivan. Earlier this morning she was on 20 mics of the prevent and she was able to arouse open up her eyes and moving extremities. She is on a mechanical ventilator assist control mode and this morning she assist control of 20 with a tidal volume of 400 and FiO2 of 40% and a PEEP of 5. The chest x-ray showing a left lower lobe consolidation. The blood gases showing a pH of 7.4 with a pCO2 of 59 and pO2 of 103 this was on FiO2 of 40%. The patient has been intubated. The patient has no significant orotracheal secretions. Sputum samples were sent is showing gram-negative bacillus which turns out to be a stenotrophomonas and insistent to IV Fortaz. I 'm assuming this to be also resistant to cefepime. The patient was effective in the past with MRSA and current antibiotic coverage including a combination of cefepime and Zyvox. Hemodynamically, the patient is hypotensive. The patient is currently on pressors and the patient is on 13 mics of norepinephrine infusion for hemodynamic support. The white cell count went as high as 31.7 and currently is down to 24.3. The patient was found to have a low hemoglobin this morning at 6.9. No evidence of any acute bleeding. She'll be given a total of 2 units of packed RBCs. Cardiothoracic surgery has been consulted in consultation for PEG and trach within next 24 hours. Meanwhile, the patient is tolerating her tube feeds. The renal function is stable and continues to improve. She is producing adequate amount of urine output. Her net fluid balance is positive over the past 24 hours. She remains in atrial fibrillation. The patient remains in a amiodarone drip. The patient is also IV heparin. Echocardiogram at shown impairment LV function with an ejection fraction of 30-35% and right ventricular being mildly enlarged and moderate degree of pulmonary hypertension. On today's evaluation of 05/25/2018, the patient remains intubated on a mechanical ventilator. As mentioned yesterday stenotrophomonas was cultured from the patient's lungs and without the second source of sepsis was a stenotrophomonas pneumonia. As such the patient was started on Bactrim and restless and this was discontinued. This was done in consultation with infectious disease. This morning she is afebrile. Her white cell count has dropped down to 18. She was weaned off the pressors and currently she is off pressors. The patient is also given a total of 2 units of packed RBC and hemoglobin is up to 8.6. The plan for today is to proceed with a PEG and trach. She remains on assist control mode of ventilation. She is on assist control of 20 with tidal volume of 400 and FiO2 of 40% and PEEP of 5. Morning blood gases showed a pH of 7.39 with a pCO2 of 55 and pO2 11. Chest x-ray shows stable consolidation of left lower lung. The sodium levels in the decline in the sodium level is down to 126 with a bicarb level of 32 and chloride level of 88. The patient will be started on normal saline infusion. The patient was receiving tube feeds which is currently on hold pending packed trach. The patient also is off IV heparin for her PEG and trach. This will be done within next few hours by Dr. Bravo. Otherwise she is still on low grade sedation and she is easily arousable. Echocardiogram at shown an impairment in the Function with an ejection fraction of 3035% with moderate degree of pulmonary hypertension. Objective - Vital Signs Vital signs: Vital Signs Temp 98.1 F 05/25/18 04:00 Pulse 62 05/25/18 07:44 Resp 19 05/25/18 07:00 BP 105/57 05/24/18 16:39 Pulse Ox 97 05/25/18 06:00 Intake & Output 05/24/18 05/25/18 05/25/18 18:59 06:59 18:59 Intake Total 3301.138 1665.721 104.964 Output Total 735 320 43 Balance 2566.138 1345.721 61.964 Weight 118 kg 121.8 kg Intake: IV 983.6 500 Amiodarone 450 mg In 83.5 Dextrose 5% in Water 250 ml @ 0.5 MG/MIN 16.66 mls /hr IV .Q15H1M [facility] Rx#: [id number] Amiodarone 450 mg In 50.1 Dextrose 5% in Water 250 ml @ 1 MG/MIN 33.33 mls/ hr IV .Q7H31M [facility] Rx#: [id number] Cefepime 2 gm In Sodium 50 Chloride 0.9% 50 ml @ 100 mls/hr IVPB Q12HR [facility] Rx #:[id number] Linezolid 600 mg In 300 Dextrose/Water 1 300ml. bag @ 150 mls/hr IVPB Q12HR [facility] Rx#:[id number] Sulfamethox-Tmp 80-16Mg/ 500 500 ml 160 mg In Dextrose 5% in Water 500 ml @ 250 mls /hr IVPB Q12HR [facility] Rx#: [id number] Intake, IV Titration 985.538 779.721 104.964 Amount Amiodarone 450 mg In 219.635 250.000 Dextrose 5% in Water 250 ml @ 0.5 MG/MIN 16.66 mls /hr IV .Q15H1M [facility] Rx#: [id number] Heparin Sod,Pork in 0.45% 500 224.395 NaCl 25,000 unit In 0.45 % NaCl 1 500ml.bag @ 9.8 UNITS/KG/HR 21.91 mls/hr IV .[id number] [facility] Rx#: [id number] Magnesium Sulfate-D5w Pmx 100 1 gm In Dextrose/Water 1 100ml.bag @ 100 mls/hr IVPB Q1H [facility] Rx#: [id number] Norepinephrine 16 mg In 65.903 122.136 4.964 Dextrose 5% in Water 250 ml @ Titrate IV .Q0M [facility] Rx#:[id number] Propofol 1,000 mg In 100 183.19 100 Empty Bag 1 bag @ Titrate IV .Q0M [facility] Rx#: [id number] Tube Feeding 622 266 Blood Product 620 Rc As-1 Unit 310 [id number] Rc As-1 Unit 310 [id number] Other 90 120 Output: Urine 735 320 43 Other: Voiding Method Indwelling Catheter Indwelling Catheter ABP, PAP, CO, CI - Last Documented Arterial Blood Pressure 115/60 - Exam Gen. appearance obese, comfortable, lethargic, intubated on a mechanical ventilator at this point in time and sedated Head exam was generally normal. There was no scleral icterus or corneal arcus. Mucous membranes were moist. Neck was supple and without jugular venous distension, thyromegaly, or carotid bruits. Carotids were easily palpable bilaterally. There was no adenopathy. The patient has a right IJ triple-lumen catheter in place. Lungs sounds are diminished bilaterally along with some few scattered external wheezes heard throughout the lung loyd. Breath sounds are overall diminished. Heart sounds are irregular S1-S2, no cervical murmurs appreciated. Monitor the current heave or thrill. Abdomen is obese soft nontender. Organs cannot be accurately palpated. No direct tenderness. No rebound tenderness. No guarding. Extremities revealed +1 pitting edema and there is no cyanosis or clubbing at this point. No evidence of any acute cellulitis although there is some erythema in the left lower extremity. Skin shows a stage II small wounds i the back area. No open wounds or sores. No evidence of any cellulitis. Neurologically patient is lethargic yet arousable. She is moving all 4 extremities without any limitation. Pupils are equal reactive to light. No focal logical deficits. No facial asymmetry. No nystagmus. - Labs CBC & Chem 7: 05/25/18 06:00 05/25/18 06:00 Labs: Abnormal Lab Results - Last 24 Hours (Table) 05/22/18 05/22/18 05/24/18 Range/Units 04:55 05:48 09:15 WBC 24.3 H (3.8-10.6) k/uL RBC 2.57 L (3.80-5.40) m/uL Hgb 6.9 L* (11.4-16.0) gm/dL Hct 21.9 L (34.0-46.0) % RDW 20.1 H (11.5-15.5) % Neutrophils # (1.3-7.7) k/uL APTT (22.0-30.0) sec ABG pCO2 70 H* 71 H* (35-45) mmHg ABG HCO3 (21-25) mmol/L ABG Total CO2 (19-24) mmol/L ABG O2 Saturation (94-97) % Sodium (137-145) mmol/L Chloride (98-107) mmol/L Carbon Dioxide (22-30) mmol/L BUN (7-17) mg/dL Creatinine (0.52-1.04) mg/dL Glucose (74-99) mg/dL POC Glucose (mg/dL) (75-99) mg/dL Phosphorus (2.5-4.5) mg/dL Urine Appearance (Clear) Urine Protein (Negative) Urine Blood (Negative) Ur Leukocyte Esterase (Negative) Urine RBC (0-5) /hpf Urine WBC (0-5) /hpf Urine WBC Clumps (None) /hpf Urine Bacteria (None) /hpf Crossmatch 05/24/18 05/24/18 05/24/18 Range/Units 09:15 11:54 12:19 WBC (3.8-10.6) k/uL RBC (3.80-5.40) m/uL Hgb (11.4-16.0) gm/dL Hct (34.0-46.0) % RDW (11.5-15.5) % Neutrophils # (1.3-7.7) k/uL APTT (22.0-30.0) sec ABG pCO2 (35-45) mmHg ABG HCO3 (21-25) mmol/L ABG Total CO2 (19-24) mmol/L ABG O2 Saturation (94-97) % Sodium (137-145) mmol/L Chloride (98-107) mmol/L Carbon Dioxide (22-30) mmol/L BUN (7-17) mg/dL Creatinine (0.52-1.04) mg/dL Glucose (74-99) mg/dL POC Glucose (mg/dL) 167 H (75-99) mg/dL Phosphorus (2.5-4.5) mg/dL Urine Appearance Turbid H (Clear) Urine Protein 1+ H (Negative) Urine Blood Large H (Negative) Ur Leukocyte Esterase Large H (Negative) Urine RBC 173 H (0-5) /hpf Urine WBC 569 H (0-5) /hpf Urine WBC Clumps Many H (None) /hpf Urine Bacteria Many H (None) /hpf Crossmatch See Detail 05/24/18 05/24/18 05/25/18 Range/Units 18:45 20:00 00:02 WBC 22.9 H (3.8-10.6) k/uL RBC 3.25 L (3.80-5.40) m/uL Hgb 8.8 L D (11.4-16.0) gm/dL Hct 28.2 L (34.0-46.0) % RDW 18.8 H (11.5-15.5) % Neutrophils # (1.3-7.7) k/uL APTT (22.0-30.0) sec ABG pCO2 (35-45) mmHg ABG HCO3 (21-25) mmol/L ABG Total CO2 (19-24) mmol/L ABG O2 Saturation (94-97) % Sodium (137-145) mmol/L Chloride (98-107) mmol/L Carbon Dioxide (22-30) mmol/L BUN (7-17) mg/dL Creatinine (0.52-1.04) mg/dL Glucose (74-99) mg/dL POC Glucose (mg/dL) 130 H 127 H (75-99) mg/dL Phosphorus (2.5-4.5) mg/dL Urine Appearance (Clear) Urine Protein (Negative) Urine Blood (Negative) Ur Leukocyte Esterase (Negative) Urine RBC (0-5) /hpf Urine WBC (0-5) /hpf Urine WBC Clumps (None) /hpf Urine Bacteria (None) /hpf Crossmatch 05/25/18 05/25/18 05/25/18 Range/Units 04:05 05:20 05:37 WBC (3.8-10.6) k/uL RBC (3.80-5.40) m/uL Hgb (11.4-16.0) gm/dL Hct (34.0-46.0) % RDW (11.5-15.5) % Neutrophils # (1.3-7.7) k/uL APTT (22.0-30.0) sec ABG pCO2 55 H (35-45) mmHg ABG HCO3 33 H (21-25) mmol/L ABG Total CO2 35 H (19-24) mmol/L ABG O2 Saturation 98.5 H (94-97) % Sodium (137-145) mmol/L Chloride (98-107) mmol/L Carbon Dioxide (22-30) mmol/L BUN (7-17) mg/dL Creatinine (0.52-1.04) mg/dL Glucose (74-99) mg/dL POC Glucose (mg/dL) 64 L 67 L (75-99) mg/dL Phosphorus (2.5-4.5) mg/dL Urine Appearance (Clear) Urine Protein (Negative) Urine Blood (Negative) Ur Leukocyte Esterase (Negative) Urine RBC (0-5) /hpf Urine WBC (0-5) /hpf Urine WBC Clumps (None) /hpf Urine Bacteria (None) /hpf Crossmatch 05/25/18 05/25/18 05/25/18 Range/Units 05:58 06:00 06:00 WBC 18.4 H (3.8-10.6) k/uL RBC 3.13 L (3.80-5.40) m/uL Hgb 8.6 L (11.4-16.0) gm/dL Hct 27.6 L (34.0-46.0) % RDW 19.0 H (11.5-15.5) % Neutrophils # 15.9 H (1.3-7.7) k/uL APTT (22.0-30.0) sec ABG pCO2 (35-45) mmHg ABG HCO3 (21-25) mmol/L ABG Total CO2 (19-24) mmol/L ABG O2 Saturation (94-97) % Sodium 126 L (137-145) mmol/L Chloride 88 L (98-107) mmol/L Carbon Dioxide 32 H (22-30) mmol/L BUN 54 H (7-17) mg/dL Creatinine 1.47 H (0.52-1.04) mg/dL Glucose 142 H (74-99) mg/dL POC Glucose (mg/dL) 164 H (75-99) mg/dL Phosphorus 4.9 H (2.5-4.5) mg/dL Urine Appearance (Clear) Urine Protein (Negative) Urine Blood (Negative) Ur Leukocyte Esterase (Negative) Urine RBC (0-5) /hpf Urine WBC (0-5) /hpf Urine WBC Clumps (None) /hpf Urine Bacteria (None) /hpf Crossmatch 05/25/18 Range/Units 06:00 WBC (3.8-10.6) k/uL RBC (3.80-5.40) m/uL Hgb (11.4-16.0) gm/dL Hct (34.0-46.0) % RDW (11.5-15.5) % Neutrophils # (1.3-7.7) k/uL APTT 32.9 H (22.0-30.0) sec ABG pCO2 (35-45) mmHg ABG HCO3 (21-25) mmol/L ABG Total CO2 (19-24) mmol/L ABG O2 Saturation (94-97) % Sodium (137-145) mmol/L Chloride (98-107) mmol/L Carbon Dioxide (22-30) mmol/L BUN (7-17) mg/dL Creatinine (0.52-1.04) mg/dL Glucose (74-99) mg/dL POC Glucose (mg/dL) (75-99) mg/dL Phosphorus (2.5-4.5) mg/dL Urine Appearance (Clear) Urine Protein (Negative) Urine Blood (Negative) Ur Leukocyte Esterase (Negative) Urine RBC (0-5) /hpf Urine WBC (0-5) /hpf Urine WBC Clumps (None) /hpf Urine Bacteria (None) /hpf Crossmatch Microbiology - Last 24 Hours (Table) 05/24/18 16:00 Gram Stain - Preliminary Sputum Sputum Culture - Preliminary 05/24/18 12:19 Urine Culture - Preliminary Urine,Voided 05/14/18 10:05 Fungal Culture - Preliminary Bronchial Washings - Left 05/22/18 05:45 Gram Stain - Final Sputum Sputum Culture - Final Stenotrophomonas maltophilia Assessment and Plan Plan: Assessment 1 acute on top of chronic hypoxic and hypercapnic respiratory failure. Patient initially presented with a MRSA left lower lobe pneumonia. Most recent sputum analysis showing stenotrophomonas and the patient failed initial extubation and currently she is intubated on assist control mode of mechanical ventilation. The patient is currently being treated for a left lower lobe pneumonia which is thought to be probably superinfection by stenotrophomonas. She is currently on IV Bactrim. 2 MRSA pneumonia of the left lower lobe with subsequent gross with stenotrophomonas. We'll add Bactrim and will monitor the renal function very closely. 3 acute hypotension and the patient is looking more septic as the patient is was resuscitated and the patient is currently pressor dependent with leukocytosis a new microorganism in her lungs/stenotrophomonas. In addition, the patient has an ejection fraction of 30-35%. The patient is currently off pressors. Norepinephrine infusion was discontinued earlier this morning. She is hemodynamically improved and more stable. She is currently on IV Bactrim. 4 CHF with an ejection fraction of 30-35% and moderate degree of pulmonary hypertension. The patient has obvious systolic dysfunction 5 chronic kidney failure with stage III kidney disease and an acute kidney injury on top of chronic renal failure, likely secondary to hypotension, cardiorenal factors versus sepsis. 6 stage III chronic decubitus ulceration without evidence of an acute cellulitis 7 morbid obesity with a BMI 41.0 8 chronic atrial fibrillation and the rate is controlled. The patient is currently off IV heparin pending PEG and trach. 9 coronary artery disease 10 recent hospitalization for diarrhea/C. diff colitis and the stool analysis was negative and the patient completed the course of deficit on outpatient basis 11 hypertension 12 degenerative arthritis and sciatica and chronic shoulder and back pain and knee pain and the patient has been wheelchair bound 13 COPD 14 chronic anemia , posttransfusion with 2 units of packed RBC and hemoglobin is up to 8.6 15 hypochloremic hyponatremia Plan Continue IV Bactrim. Hemoglobin is stable. Keep the tube feeds on hold. Keep the IV heparin and hold for PEG and check to be done today. Continue vent support. Put the patient on normal saline infusion and monitor the sodium level and he tried level. We'll start normal saline at the rate of 75 mL an hour. The plan for today is to proceed with a PEG and trach and after she arrived back to the ICU was started weaning this patient off sedation. We'll continue to follow make further recommendations based on her progress. Atelectatic discussion with the patient's family and I met 2 of her daughters again and discuss with them the long-term treatment plan. Unfortunate outcome may not be favorable however a PEG and treatment will be needed specially the patient failed initial extubation and her condition may essentially due to prolonged that she may require longer-term treatment based on her multiple medical problems and comorbidities. As such, PEG and trach may facilitate her care. We'll continue to follow. Is a critically care evaluation, more than 30 minutes. Time with Patient: Greater than 30
[2018-05-25] MEDS ORDERED: PHENYLEPHRINE-0.9% NACL SYG 1 MG/10 ML SYRINGE ONE (09:59)
[2018-05-25] MEDS ORDERED: SODIUM CHLORIDE 0.9% 1,000 ML IV ONE (09:59)
[2018-05-25] MEDS ORDERED: ROCURONIUM BROMIDE 10 MG/ML 10 ML VIAL IV ONE (09:59)
[2018-05-25] MEDS ORDERED: fentaNYL (PF) 50 MCG/ML 2 ML AMP ONE (09:59)
--- NOTE | 2018-05-25 11:57 | P.PN ---
Subjective Patient is seen in follow-up for acute kidney injury. Unclear as to what her baseline renal function is. Creatinine worse at 1.47 today. Patient presented with weakness and was noted to be due to be in atrial fibrillation with RVR. Currently on amiodarone drip. Levophed was discontinued this morning. She is noted to have systolic CHF with ejection fraction of 30-35%. Patient underwent tracheostomy and a PEG tube placement this morning. Diuretics have been discontinued. She was started on normal saline at 75 mL an hour this morning. Sodium level down to 126 today. Vital signs are stable. General: The patient appeared well nourished and normally developed. HEENT: Head exam is unremarkable. Neck is without jugular venous distension. LUNGS: Breath sounds decreased. HEART: Irregular rate and rhythm. ABDOMEN: Abdominal exam reveals normal bowel sounds. Non-tender and non- distended. No evidence of peritonitis. EXTREMITITES: 1+ edema. Objective - Vital Signs Vital signs: Vital Signs Temp 96.8 F L 05/25/18 08:00 Pulse 66 05/25/18 09:30 Resp 20 05/25/18 09:30 BP 105/57 05/24/18 16:39 Pulse Ox 100 05/25/18 09:30 Intake & Output 05/24/18 05/25/18 05/25/18 18:59 06:59 18:59 Intake Total 3301.138 1665.721 654.964 Output Total 735 320 163 Balance 2566.138 1345.721 491.964 Weight 118 kg 121.8 kg Intake: IV 983.6 500 550 Amiodarone 450 mg In 83.5 Dextrose 5% in Water 250 ml @ 0.5 MG/MIN 16.66 mls /hr IV .Q15H1M [facility] Rx#: [id number] Amiodarone 450 mg In 50.1 Dextrose 5% in Water 250 ml @ 1 MG/MIN 33.33 mls/ hr IV .Q7H31M [facility] Rx#: [id number] Cefepime 2 gm In Sodium 50 Chloride 0.9% 50 ml @ 100 mls/hr IVPB Q12HR [facility] Rx #:[id number] Linezolid 600 mg In 300 Dextrose/Water 1 300ml. bag @ 150 mls/hr IVPB Q12HR [facility] Rx#:[id number] Sulfamethox-Tmp 80-16Mg/ 500 500 500 ml 160 mg In Dextrose 5% in Water 500 ml @ 250 mls /hr IVPB Q12HR [facility] Rx#: [id number] Intake, IV Titration 985.538 779.721 104.964 Amount Amiodarone 450 mg In 219.635 250.000 Dextrose 5% in Water 250 ml @ 0.5 MG/MIN 16.66 mls /hr IV .Q15H1M [facility] Rx#: [id number] Heparin Sod,Pork in 0.45% 500 224.395 NaCl 25,000 unit In 0.45 % NaCl 1 500ml.bag @ 9.8 UNITS/KG/HR 21.91 mls/hr IV .[id number] [facility] Rx#: [id number] Magnesium Sulfate-D5w Pmx 100 1 gm In Dextrose/Water 1 100ml.bag @ 100 mls/hr IVPB Q1H [facility] Rx#: [id number] Norepinephrine 16 mg In 65.903 122.136 4.964 Dextrose 5% in Water 250 ml @ Titrate IV .Q0M [facility] Rx#:[id number] Propofol 1,000 mg In 100 183.19 100 Empty Bag 1 bag @ Titrate IV .Q0M [facility] Rx#: [id number] Tube Feeding 622 266 Blood Product 620 Rc As-1 Unit 310 [id number] Rc As-1 Unit 310 [id number] Other 90 120 Output: Urine 735 320 153 Estimated Blood Loss 10 Other: Voiding Method Indwelling Catheter Indwelling Catheter Indwelling Catheter ABP, PAP, CO, CI - Last Documented Arterial Blood Pressure 92/56 - Labs CBC & Chem 7: 05/25/18 06:00 05/25/18 06:00 Labs: Abnormal Lab Results - Last 24 Hours (Table) 05/24/18 05/24/18 05/24/18 Range/Units 09:15 11:54 12:19 WBC (3.8-10.6) k/uL RBC (3.80-5.40) m/uL Hgb (11.4-16.0) gm/dL Hct (34.0-46.0) % RDW (11.5-15.5) % Neutrophils # (1.3-7.7) k/uL APTT (22.0-30.0) sec ABG pCO2 (35-45) mmHg ABG HCO3 (21-25) mmol/L ABG Total CO2 (19-24) mmol/L ABG O2 Saturation (94-97) % Sodium (137-145) mmol/L Chloride (98-107) mmol/L Carbon Dioxide (22-30) mmol/L BUN (7-17) mg/dL Creatinine (0.52-1.04) mg/dL Glucose (74-99) mg/dL POC Glucose (mg/dL) 167 H (75-99) mg/dL Phosphorus (2.5-4.5) mg/dL Urine Appearance Turbid H (Clear) Urine Protein 1+ H (Negative) Urine Blood Large H (Negative) Ur Leukocyte Esterase Large H (Negative) Urine RBC 173 H (0-5) /hpf Urine WBC 569 H (0-5) /hpf Urine WBC Clumps Many H (None) /hpf Urine Bacteria Many H (None) /hpf Crossmatch See Detail 05/24/18 05/24/18 05/25/18 Range/Units 18:45 20:00 00:02 WBC 22.9 H (3.8-10.6) k/uL RBC 3.25 L (3.80-5.40) m/uL Hgb 8.8 L D (11.4-16.0) gm/dL Hct 28.2 L (34.0-46.0) % RDW 18.8 H (11.5-15.5) % Neutrophils # (1.3-7.7) k/uL APTT (22.0-30.0) sec ABG pCO2 (35-45) mmHg ABG HCO3 (21-25) mmol/L ABG Total CO2 (19-24) mmol/L ABG O2 Saturation (94-97) % Sodium (137-145) mmol/L Chloride (98-107) mmol/L Carbon Dioxide (22-30) mmol/L BUN (7-17) mg/dL Creatinine (0.52-1.04) mg/dL Glucose (74-99) mg/dL POC Glucose (mg/dL) 130 H 127 H (75-99) mg/dL Phosphorus (2.5-4.5) mg/dL Urine Appearance (Clear) Urine Protein (Negative) Urine Blood (Negative) Ur Leukocyte Esterase (Negative) Urine RBC (0-5) /hpf Urine WBC (0-5) /hpf Urine WBC Clumps (None) /hpf Urine Bacteria (None) /hpf Crossmatch 05/25/18 05/25/18 05/25/18 Range/Units 04:05 05:20 05:37 WBC (3.8-10.6) k/uL RBC (3.80-5.40) m/uL Hgb (11.4-16.0) gm/dL Hct (34.0-46.0) % RDW (11.5-15.5) % Neutrophils # (1.3-7.7) k/uL APTT (22.0-30.0) sec ABG pCO2 55 H (35-45) mmHg ABG HCO3 33 H (21-25) mmol/L ABG Total CO2 35 H (19-24) mmol/L ABG O2 Saturation 98.5 H (94-97) % Sodium (137-145) mmol/L Chloride (98-107) mmol/L Carbon Dioxide (22-30) mmol/L BUN (7-17) mg/dL Creatinine (0.52-1.04) mg/dL Glucose (74-99) mg/dL POC Glucose (mg/dL) 64 L 67 L (75-99) mg/dL Phosphorus (2.5-4.5) mg/dL Urine Appearance (Clear) Urine Protein (Negative) Urine Blood (Negative) Ur Leukocyte Esterase (Negative) Urine RBC (0-5) /hpf Urine WBC (0-5) /hpf Urine WBC Clumps (None) /hpf Urine Bacteria (None) /hpf Crossmatch 05/25/18 05/25/18 05/25/18 Range/Units 05:58 06:00 06:00 WBC 18.4 H (3.8-10.6) k/uL RBC 3.13 L (3.80-5.40) m/uL Hgb 8.6 L (11.4-16.0) gm/dL Hct 27.6 L (34.0-46.0) % RDW 19.0 H (11.5-15.5) % Neutrophils # 15.9 H (1.3-7.7) k/uL APTT (22.0-30.0) sec ABG pCO2 (35-45) mmHg ABG HCO3 (21-25) mmol/L ABG Total CO2 (19-24) mmol/L ABG O2 Saturation (94-97) % Sodium 126 L (137-145) mmol/L Chloride 88 L (98-107) mmol/L Carbon Dioxide 32 H (22-30) mmol/L BUN 54 H (7-17) mg/dL Creatinine 1.47 H (0.52-1.04) mg/dL Glucose 142 H (74-99) mg/dL POC Glucose (mg/dL) 164 H (75-99) mg/dL Phosphorus 4.9 H (2.5-4.5) mg/dL Urine Appearance (Clear) Urine Protein (Negative) Urine Blood (Negative) Ur Leukocyte Esterase (Negative) Urine RBC (0-5) /hpf Urine WBC (0-5) /hpf Urine WBC Clumps (None) /hpf Urine Bacteria (None) /hpf Crossmatch 05/25/18 Range/Units 06:00 WBC (3.8-10.6) k/uL RBC (3.80-5.40) m/uL Hgb (11.4-16.0) gm/dL Hct (34.0-46.0) % RDW (11.5-15.5) % Neutrophils # (1.3-7.7) k/uL APTT 32.9 H (22.0-30.0) sec ABG pCO2 (35-45) mmHg ABG HCO3 (21-25) mmol/L ABG Total CO2 (19-24) mmol/L ABG O2 Saturation (94-97) % Sodium (137-145) mmol/L Chloride (98-107) mmol/L Carbon Dioxide (22-30) mmol/L BUN (7-17) mg/dL Creatinine (0.52-1.04) mg/dL Glucose (74-99) mg/dL POC Glucose (mg/dL) (75-99) mg/dL Phosphorus (2.5-4.5) mg/dL Urine Appearance (Clear) Urine Protein (Negative) Urine Blood (Negative) Ur Leukocyte Esterase (Negative) Urine RBC (0-5) /hpf Urine WBC (0-5) /hpf Urine WBC Clumps (None) /hpf Urine Bacteria (None) /hpf Crossmatch Microbiology - Last 24 Hours (Table) 05/24/18 16:00 Gram Stain - Preliminary Sputum Sputum Culture - Preliminary 05/24/18 12:19 Urine Culture - Preliminary Urine,Voided 05/14/18 10:05 Fungal Culture - Preliminary Bronchial Washings - Left 05/22/18 05:45 Gram Stain - Final Sputum Sputum Culture - Final Stenotrophomonas maltophilia Assessment and Plan Plan: Assessment: 1. Nonoliguric acute kidney injury secondary to ATN secondary to hemodynamic instability along with component of cardiorenal syndrome. Unclear as to what her baseline renal function is. Creatinine worse at 1.47 today which is due to diuresis as well as Bactrim which will impair creatinine secretion. No proteinuria noted on urinalysis. 2. Atrial fibrillation with RVR, maintained on IV amiodarone. 3. Systolic CHF with ejection fraction of 30-35%. 4. Hypotension, off vasopressors as of this morning. 5. Volume overload. Improved. 6. Hypokalemia secondary to diuresis. Magnesium replete. Improved. 7. Hyponatremia secondary to acute kidney injury, poor solute intake. Patient was started on normal saline this morning and Lasix has been discontinued as of yesterday. 8. MRSA in bronchial washings maintained on IV abx per ID. Vanco discontinued. Sputum culture positive for stenotrophomonas maltophilia. 9. Anemia. Iron deficiency noted - s/p 3 doses of IV iron. Hgb 8.6 today. 10. Hyperphosphatemia secondary to acute kidney injury. Phosphorus level 4.9 this morning. Monitor. Plan: Continue with normal saline at 75 mL an hour which was started this morning. Monitor her volume status closely as she has impaired ejection fraction. Recheck sodium level at 3 PM today. If sodium level drops further, will consider giving her dose of Samsca. Avoid nephrotoxins. Continue to monitor renal function and potassium level closely. Patient was started on Bactrim this morning.
[2018-05-25 12:17] LABS: Glucose,Whole Blood 117 mg/dL (75-99)
[2018-05-25] MEDS: ASPIRIN 325 MG TAB PO SCH (12:23)
[2018-05-25] MEDS: BISACODYL 10 MG SUPP RECTAL SCH (12:23)
[2018-05-25] MEDS: SODIUM CHLORIDE 0.9% 1,000 ML IV SCH (12:25)
[2018-05-25] MEDS: AMIODARONE 200 MG TAB PO SCH ×2 (13:00→21:35)
[2018-05-25] MEDS ORDERED: NOREPINEPHRINE 16 MG in SODIUM CHLORIDE 0.9% 250 ML IV SCH (13:35)
--- NOTE | 2018-05-25 14:42 | P.PN ---
Subjective Progress Note Date: 05/25/18 Principal diagnosis: Respiratory failure Patient is a 67-year-old female multiple medical problems including CKD stage III, type 2 diabetes mellitus, diastolic heart failure, COPD with chronic CO2 retention chronic O2 dependence on 3L and nocturnal BiPAP, chronic atrial fibrillation on Eliquis was brought into emergency department due to respiratory distress. He was intubated in the emergency department. She was initially found have an elevated BNP and slightly elevated troponin. She was started on Solu-Medrol and Lasix in the ER and then developed A. fib with RVR. When this happen her respiratory status worsened and she was subsequently intubated. She was started on a Cardizem and Lasix drip. Follow-up chest x- ray after intubation showed worsening pulmonary edema and small bilateral pleural effusions. She was seen by pulmonary critical care on the morning of 05/11 and had a central line and a left brachial Artline placed. Infectious disease was consulted as patient had been placed on aztreonam and vancomycin secondary to ALLERGIES. She developed acute hypotension and required being placed on IV vasopressors. Repeat echocardiogram was performed which showed an ejection fraction of 30-35% which was worse from prior. Infectious disease found her to have multiple decubitus ulcers as well as mild cellulitis of the left leg. She had been placed on IV amio for arrhythmia and this was transitioned to oral amio on 05/14. They recommended continuing Azactam and vancomycin. On 05/14 her chest x-ray showed worsening volume loss in the left lower lobe. She subsequently underwent bronchoscopy. Pulmonary was concerned for worsening pneumonia that could be healthcare associated and added cefepime in addition to the Azactam and vancomycin. She has been seen by nephrology as her creatinine had been increasing with use of the Lasix drip. Nephrology discontinued Lasix. She was extubated on the morning of 05/15. Overnight she required BiPAP (typical for her) and was unable to wean off BiPAP on the morning of 05/16. On the morning of 05/16 her creatinine was slightly better but she was lethargic and showing a worsening chest x-ray. She was given an additional dose of Lasix. Her bronchoscopy ultimately grew out MRSA. She was continued on vancomycin until she completed her course. That she was unable to take anything by mouth due to requiring extensive BiPAP after extubation she was started again on IV amiodarone and heparin. She again required intubation on 05/22 in the [facility] due to respiratory distress and profound hypoxemia. She also required being restarted on IV vasopressors. She had increasing white blood cell count was then started on clindamycin. Patient seen and examined at bedside. Patient just came back from trach placement. She is currently hypotensive with systolic blood pressure in the 80s. Diuretics have been discontinued. She was started on normal saline at 75 mL an hour this morning. Sodium level down to 126 today. Objective - Vital Signs Vital signs: Vital Signs Temp 97.1 F L 05/25/18 12:00 Pulse 74 05/25/18 14:00 Resp 20 05/25/18 14:00 BP 105/57 05/24/18 16:39 Pulse Ox 97 05/25/18 14:00 Intake & Output 05/24/18 05/25/18 05/25/18 18:59 06:59 18:59 Intake Total 3301.138 0466.096 3498.664 Output Total 735 320 533 Balance 2566.138 1345.721 668.664 Weight 118 kg 121.8 kg Intake: IV 983.6 500 925 Amiodarone 450 mg In 83.5 Dextrose 5% in Water 250 ml @ 0.5 MG/MIN 16.66 mls /hr IV .Q15H1M [facility] Rx#: [id number] Amiodarone 450 mg In 50.1 Dextrose 5% in Water 250 ml @ 1 MG/MIN 33.33 mls/ hr IV .Q7H31M [facility] Rx#: [id number] Cefepime 2 gm In Sodium 50 Chloride 0.9% 50 ml @ 100 mls/hr IVPB Q12HR [facility] Rx #:[id number] Linezolid 600 mg In 300 Dextrose/Water 1 300ml. bag @ 150 mls/hr IVPB Q12HR [facility] Rx#:[id number] Sodium Chloride 0.9% 1, 375 000 ml @ 75 mls/hr IV . [id number] [facility] Rx#:[id number] Sulfamethox-Tmp 80-16Mg/ 500 500 500 ml 160 mg In Dextrose 5% in Water 500 ml @ 250 mls /hr IVPB Q12HR [facility] Rx#: [id number] Intake, IV Titration 985.538 779.721 276.664 Amount Amiodarone 450 mg In 219.635 250.000 123.284 Dextrose 5% in Water 250 ml @ 0.5 MG/MIN 16.66 mls /hr IV .Q15H1M [facility] Rx#: [id number] Heparin Sod,Pork in 0.45% 500 224.395 0 NaCl 25,000 unit In 0.45 % NaCl 1 500ml.bag @ 9.8 UNITS/KG/HR 21.91 mls/hr IV .C90K37H [facility] Rx#: [id number] Magnesium Sulfate-D5w Pmx 100 1 gm In Dextrose/Water 1 100ml.bag @ 100 mls/hr IVPB Q1H [facility] Rx#: [id number] Norepinephrine 16 mg In 65.903 122.136 4.964 Dextrose 5% in Water 250 ml @ Titrate IV .Q0M [facility] Rx#:[id number] Propofol 1,000 mg In 100 183.19 148.416 Empty Bag 1 bag @ Titrate IV .Q0M [facility] Rx#: [id number] Tube Feeding 622 266 Blood Product 620 Rc As-1 Unit 310 [id number] Rc As-1 Unit 310 [id number] Other 90 120 Output: Urine 735 320 523 Estimated Blood Loss 10 Other: Voiding Method Indwelling Catheter Indwelling Catheter Indwelling Catheter ABP, PAP, CO, CI - Last Documented Arterial Blood Pressure 101/50 - Exam General: Ill Appearing, moderate distress, morbidly obese, appears at stated age Derm: warm, dry, dressing in place over left lower extremity wound Head: atraumatic, normocephalic, symmetric Eyes: EOMI, no lid lag, anicteric sclera Mouth: no lip lesion, mucus membranes moist Neck: Trach in place Cardiovascular: S1S2 reg, no murmur, positive posterior tibial pulse bilateral, Lungs: Coarse breath sounds bilaterally, no rhonchi, no rales , no accessory muscle use, on 10 Abdominal: soft, PEG in place, nontender to palpation, no guarding, organs unable to be palpated Ext: no gross muscle atrophy, 1+ pitting edema, no contractures Neuro: CN II-XI grossly intact, not moving any 4 extremities currently blood per nursing moving all 4 extremities Psych: On vent - Labs CBC & Chem 7: 05/25/18 06:00 05/25/18 06:00 Labs: Abnormal Lab Results - Last 24 Hours (Table) 05/24/18 05/24/18 05/24/18 Range/Units 09:15 18:45 20:00 WBC 22.9 H (3.8-10.6) k/uL RBC 3.25 L (3.80-5.40) m/uL Hgb 8.8 L D (11.4-16.0) gm/dL Hct 28.2 L (34.0-46.0) % RDW 18.8 H (11.5-15.5) % Neutrophils # (1.3-7.7) k/uL APTT (22.0-30.0) sec ABG pCO2 (35-45) mmHg ABG HCO3 (21-25) mmol/L ABG Total CO2 (19-24) mmol/L ABG O2 Saturation (94-97) % Sodium (137-145) mmol/L Chloride (98-107) mmol/L Carbon Dioxide (22-30) mmol/L BUN (7-17) mg/dL Creatinine (0.52-1.04) mg/dL Glucose (74-99) mg/dL POC Glucose (mg/dL) 130 H (75-99) mg/dL Phosphorus (2.5-4.5) mg/dL Crossmatch See Detail 05/25/18 05/25/18 05/25/18 Range/Units 00:02 04:05 05:20 WBC (3.8-10.6) k/uL RBC (3.80-5.40) m/uL Hgb (11.4-16.0) gm/dL Hct (34.0-46.0) % RDW (11.5-15.5) % Neutrophils # (1.3-7.7) k/uL APTT (22.0-30.0) sec ABG pCO2 55 H (35-45) mmHg ABG HCO3 33 H (21-25) mmol/L ABG Total CO2 35 H (19-24) mmol/L ABG O2 Saturation 98.5 H (94-97) % Sodium (137-145) mmol/L Chloride (98-107) mmol/L Carbon Dioxide (22-30) mmol/L BUN (7-17) mg/dL Creatinine (0.52-1.04) mg/dL Glucose (74-99) mg/dL POC Glucose (mg/dL) 127 H 64 L (75-99) mg/dL Phosphorus (2.5-4.5) mg/dL Crossmatch 05/25/18 05/25/18 05/25/18 Range/Units 05:37 05:58 06:00 WBC (3.8-10.6) k/uL RBC (3.80-5.40) m/uL Hgb (11.4-16.0) gm/dL Hct (34.0-46.0) % RDW (11.5-15.5) % Neutrophils # (1.3-7.7) k/uL APTT (22.0-30.0) sec ABG pCO2 (35-45) mmHg ABG HCO3 (21-25) mmol/L ABG Total CO2 (19-24) mmol/L ABG O2 Saturation (94-97) % Sodium 126 L (137-145) mmol/L Chloride 88 L (98-107) mmol/L Carbon Dioxide 32 H (22-30) mmol/L BUN 54 H (7-17) mg/dL Creatinine 1.47 H (0.52-1.04) mg/dL Glucose 142 H (74-99) mg/dL POC Glucose (mg/dL) 67 L 164 H (75-99) mg/dL Phosphorus 4.9 H (2.5-4.5) mg/dL Crossmatch 05/25/18 05/25/18 05/25/18 Range/Units 06:00 06:00 11:46 WBC 18.4 H (3.8-10.6) k/uL RBC 3.13 L (3.80-5.40) m/uL Hgb 8.6 L (11.4-16.0) gm/dL Hct 27.6 L (34.0-46.0) % RDW 19.0 H (11.5-15.5) % Neutrophils # 15.9 H (1.3-7.7) k/uL APTT 32.9 H (22.0-30.0) sec ABG pCO2 (35-45) mmHg ABG HCO3 (21-25) mmol/L ABG Total CO2 (19-24) mmol/L ABG O2 Saturation (94-97) % Sodium (137-145) mmol/L Chloride (98-107) mmol/L Carbon Dioxide (22-30) mmol/L BUN (7-17) mg/dL Creatinine (0.52-1.04) mg/dL Glucose (74-99) mg/dL POC Glucose (mg/dL) 117 H (75-99) mg/dL Phosphorus (2.5-4.5) mg/dL Crossmatch Microbiology - Last 24 Hours (Table) 05/24/18 16:00 Gram Stain - Preliminary Sputum Sputum Culture - Preliminary 05/24/18 12:19 Urine Culture - Preliminary Urine,Voided 05/14/18 10:05 Fungal Culture - Preliminary Bronchial Washings - Left 05/22/18 05:45 Gram Stain - Final Sputum Sputum Culture - Final Stenotrophomonas maltophilia Assessment and Plan Plan: Pneumonia, likely healthcare, growing out stenotrophomonas and earlier grew MRSA -Resume Bactrim which is active against above grown organisms. -Pulmonary and infectious disease following -Pulmonary hygiene -Blood cultures done on 05/24, will follow Hyponatremia-hypervolemic -Secondary to acute kidney injury, poor solute intake. Patient was started on normal saline this morning and Lasix has been discontinued as of yesterday. -Follow sodiums -Nephrology recommendations: Minimal water flushes due to hyponatremia with tube feeds Anemia, worsening with iron deficiency -2 units of packed red blood cells today - monitor for signs of bleeding - Appears to have iron deficiency anemia, status post 3 doses of IV iron Acute systolic CHF exacerbation with ejection fraction 30-35% -IV Lasix held due to hypotension -Ideally will need to be on an ALEJA inhibitor but cannot tolerate secondary to renal failure and hypotension -Ideally beta carola but contraindicated due to hypotension BASIA on CKD stage III with hyponatremia - nephrology following, renal function plateaued - renal dose medications - avoid additional nephrotoxic agents P. A. fib with RVR -On oral amiodarone - on heparin gtt Acute on chronic hypoxic hypercapnic respiratory failure due to obesity hypoventilation syndrome and pneumonia -Vent management per pulmonary critical care Morbid obesity BMI 42 - structured outpatient weight loss Stage III decubitus ulcers with possible mild cellulitis -ID recs - off load - barrier cream COPD without exacerbation - pulm following - bronchdilators Acute on chronic debility -Physical therapy evaluation 1 respiratory status stable Resolved: septic shock A fib with RVR Subacute diarrhea Hypoglycemia, resolved DVT prophylaxis: heparin gtt Discussed with: nursing Anticipated discharge: 3-[address]: Likely will need SNF A total of 35 minutes was spent on the care of this complex patient more than 50 % of the time was spent in counseling and care coordination.
--- NOTE | 2018-05-25 15:14 | P.PN ---
Subjective Progress Note Date: 05/25/18 This patient is admitted with atrial fibrillation with rapid ventricular response associated with sepsis. Patient is started on IV amiodarone and switch to by mouth amiodarone. Heart rate is better controlled. We'll continue the same. Patient will be followed as needed. 05/25/2018: This patient had tracheostomy today. Patient is in respiratory failure and is being treated for pneumonia and possible CHF. Patient has chronic atrial fibrillation. The rate is controlled. Echo Cardigan showed impaired LV function. Patient is a has multiple issues. At this point we will go and stop the IV amiodarone and start her on by mouth amiodarone 200 mg twice a day. She was also on heparin which will be restarted when cleared by surgery. Long-term anti-coagulation therapy to be considered. Objective - Vital Signs Vital signs: Vital Signs Temp 97.1 F L 05/25/18 12:00 Pulse 77 05/25/18 15:00 Resp 15 05/25/18 15:00 BP 105/57 05/24/18 16:39 Pulse Ox 98 05/25/18 15:00 Intake & Output 05/24/18 05/25/18 05/25/18 18:59 06:59 18:59 Intake Total 3301.138 7456.508 5732.902 Output Total 735 320 568 Balance 2566.138 1345.721 712.902 Weight 118 kg 121.8 kg Intake: IV 983.6 500 1000 Amiodarone 450 mg In 83.5 Dextrose 5% in Water 250 ml @ 0.5 MG/MIN 16.66 mls /hr IV .Q15H1M [facility] Rx#: [id number] Amiodarone 450 mg In 50.1 Dextrose 5% in Water 250 ml @ 1 MG/MIN 33.33 mls/ hr IV .Q7H31M [facility] Rx#: [id number] Cefepime 2 gm In Sodium 50 Chloride 0.9% 50 ml @ 100 mls/hr IVPB Q12HR [facility] Rx #:[id number] Linezolid 600 mg In 300 Dextrose/Water 1 300ml. bag @ 150 mls/hr IVPB Q12HR [facility] Rx#:[id number] Sodium Chloride 0.9% 1, 450 000 ml @ 75 mls/hr IV . [id number] [facility] Rx#:[id number] Sulfamethox-Tmp 80-16Mg/ 500 500 500 ml 160 mg In Dextrose 5% in Water 500 ml @ 250 mls /hr IVPB Q12HR [facility] Rx#: [id number] Intake, IV Titration 985.538 779.721 280.902 Amount Amiodarone 450 mg In 219.635 250.000 123.284 Dextrose 5% in Water 250 ml @ 0.5 MG/MIN 16.66 mls /hr IV .Q15H1M [facility] Rx#: [id number] Heparin Sod,Pork in 0.45% 500 224.395 0 NaCl 25,000 unit In 0.45 % NaCl 1 500ml.bag @ 9.8 UNITS/KG/HR 21.91 mls/hr IV .[id number] [facility] Rx#: [id number] Magnesium Sulfate-D5w Pmx 100 1 gm In Dextrose/Water 1 100ml.bag @ 100 mls/hr IVPB Q1H [facility] Rx#: [id number] Norepinephrine 16 mg In 65.903 122.136 9.202 Dextrose 5% in Water 250 ml @ Titrate IV .Q0M [facility] Rx#:[id number] Propofol 1,000 mg In 100 183.19 148.416 Empty Bag 1 bag @ Titrate IV .Q0M [facility] Rx#: [id number] Tube Feeding 622 266 Blood Product 620 Rc As-1 Unit 310 [id number] Rc As-1 Unit 310 [id number] Other 90 120 Output: Urine 735 320 558 Estimated Blood Loss 10 Other: Voiding Method Indwelling Catheter Indwelling Catheter Indwelling Catheter ABP, PAP, CO, CI - Last Documented Arterial Blood Pressure 86/46 - Exam GENERAL EXAM: She is status post surgery HEENT: Normocephalic. Normal reaction of pupils, equal size, normal range of extraocular motion. No erythema or exudates in the throat. NECK: No masses, no nuchal rigidity. CHEST: No chest wall deformity. LUNGS: Diminished breath sounds HEART: S1 and S2 normal with no audible mumurs or gallops. Regular rhythm, femorals equal on both sides.. ABDOMEN: Soft SKIN: No rashes CENTRAL NERVOUS SYSTEM: No focal deficits. EXTREMITIES: No cyanosis, clubbing or edema. - Labs CBC & Chem 7: 05/25/18 06:00 05/25/18 06:00 Labs: Abnormal Lab Results - Last 24 Hours (Table) 05/24/18 05/24/18 05/24/18 Range/Units 09:15 18:45 20:00 WBC 22.9 H (3.8-10.6) k/uL RBC 3.25 L (3.80-5.40) m/uL Hgb 8.8 L D (11.4-16.0) gm/dL Hct 28.2 L (34.0-46.0) % RDW 18.8 H (11.5-15.5) % Neutrophils # (1.3-7.7) k/uL APTT (22.0-30.0) sec ABG pCO2 (35-45) mmHg ABG HCO3 (21-25) mmol/L ABG Total CO2 (19-24) mmol/L ABG O2 Saturation (94-97) % Sodium (137-145) mmol/L Chloride (98-107) mmol/L Carbon Dioxide (22-30) mmol/L BUN (7-17) mg/dL Creatinine (0.52-1.04) mg/dL Glucose (74-99) mg/dL POC Glucose (mg/dL) 130 H (75-99) mg/dL Phosphorus (2.5-4.5) mg/dL Crossmatch See Detail 05/25/18 05/25/18 05/25/18 Range/Units 00:02 04:05 05:20 WBC (3.8-10.6) k/uL RBC (3.80-5.40) m/uL Hgb (11.4-16.0) gm/dL Hct (34.0-46.0) % RDW (11.5-15.5) % Neutrophils # (1.3-7.7) k/uL APTT (22.0-30.0) sec ABG pCO2 55 H (35-45) mmHg ABG HCO3 33 H (21-25) mmol/L ABG Total CO2 35 H (19-24) mmol/L ABG O2 Saturation 98.5 H (94-97) % Sodium (137-145) mmol/L Chloride (98-107) mmol/L Carbon Dioxide (22-30) mmol/L BUN (7-17) mg/dL Creatinine (0.52-1.04) mg/dL Glucose (74-99) mg/dL POC Glucose (mg/dL) 127 H 64 L (75-99) mg/dL Phosphorus (2.5-4.5) mg/dL Crossmatch 05/25/18 05/25/18 05/25/18 Range/Units 05:37 05:58 06:00 WBC (3.8-10.6) k/uL RBC (3.80-5.40) m/uL Hgb (11.4-16.0) gm/dL Hct (34.0-46.0) % RDW (11.5-15.5) % Neutrophils # (1.3-7.7) k/uL APTT (22.0-30.0) sec ABG pCO2 (35-45) mmHg ABG HCO3 (21-25) mmol/L ABG Total CO2 (19-24) mmol/L ABG O2 Saturation (94-97) % Sodium 126 L (137-145) mmol/L Chloride 88 L (98-107) mmol/L Carbon Dioxide 32 H (22-30) mmol/L BUN 54 H (7-17) mg/dL Creatinine 1.47 H (0.52-1.04) mg/dL Glucose 142 H (74-99) mg/dL POC Glucose (mg/dL) 67 L 164 H (75-99) mg/dL Phosphorus 4.9 H (2.5-4.5) mg/dL Crossmatch 05/25/18 05/25/18 05/25/18 Range/Units 06:00 06:00 11:46 WBC 18.4 H (3.8-10.6) k/uL RBC 3.13 L (3.80-5.40) m/uL Hgb 8.6 L (11.4-16.0) gm/dL Hct 27.6 L (34.0-46.0) % RDW 19.0 H (11.5-15.5) % Neutrophils # 15.9 H (1.3-7.7) k/uL APTT 32.9 H (22.0-30.0) sec ABG pCO2 (35-45) mmHg ABG HCO3 (21-25) mmol/L ABG Total CO2 (19-24) mmol/L ABG O2 Saturation (94-97) % Sodium (137-145) mmol/L Chloride (98-107) mmol/L Carbon Dioxide (22-30) mmol/L BUN (7-17) mg/dL Creatinine (0.52-1.04) mg/dL Glucose (74-99) mg/dL POC Glucose (mg/dL) 117 H (75-99) mg/dL Phosphorus (2.5-4.5) mg/dL Crossmatch Microbiology - Last 24 Hours (Table) 05/24/18 13:00 Blood Culture - Preliminary Blood No Growth after 24 hours 05/24/18 12:30 Blood Culture - Preliminary Blood No Growth after 24 hours 05/24/18 16:00 Gram Stain - Preliminary Sputum Sputum Culture - Preliminary 05/24/18 12:19 Urine Culture - Preliminary Urine,Voided 05/14/18 10:05 Fungal Culture - Preliminary Bronchial Washings - Left 05/22/18 05:45 Gram Stain - Final Sputum Sputum Culture - Final Stenotrophomonas maltophilia Assessment and Plan (1) Acute respiratory failure Current Visit: Yes Status: Acute Priority: High Code(s): J96.00 - ACUTE RESPIRATORY FAILURE, UNSP W HYPOXIA OR HYPERCAPNIA SNOMED Code(s): 59928637 (2) COPD (chronic obstructive pulmonary disease) Current Visit: Yes Status: Acute Priority: High Code(s): J44.9 - CHRONIC OBSTRUCTIVE PULMONARY DISEASE, UNSPECIFIED SNOMED Code(s): 33356989 (3) Rapid atrial fibrillation Current Visit: Yes Status: Acute Code(s): I48.91 - UNSPECIFIED ATRIAL FIBRILLATION SNOMED Code(s): 984754155 Plan: Continue current medical therapy. We'll follow as needed. 05/25/2018. Patient is status post tracheostomy. We will start her on by mouth amiodarone and discontinue IV amiodarone. Rest of the management as for the head of english
[2018-05-25] MEDS ORDERED: TOLVAPTAN 15 MG 1/2 TABLET PO ONE (15:36)
[2018-05-25 15:49] LABS: Glucose,Whole Blood 91 mg/dL (75-99)
[2018-05-25 19:46] LABS: Glucose,Whole Blood 93 mg/dL (75-99)
[2018-05-25] MEDS ORDERED: HEPARIN SODIUM,PORCINE 5,000 UNIT/ML 1 ML VIAL IV STA (22:31)
[2018-05-25] MEDS ORDERED: FUROSEMIDE 10 MG/ML 4 ML VIAL IV STA (22:33)
[2018-05-25 23:37] LABS: Glucose,Whole Blood 115 mg/dL (75-99)
[2018-05-26] MEDS: SODIUM CHLORIDE 0.9% 1,000 ML IV SCH ×2 (00:24→17:29)
[2018-05-26] MEDS: HEPARIN SOD,PORK IN 0.45% NACL 25,000 UNIT in 0.45% NACL 1 500ML.BAG IV SCH ×2 (02:12→15:43)
[2018-05-26] MEDS: IPRATROPIUM-ALBUTEROL 3 ML NEB INHALATION SCH ×6 (04:20→23:20)
[2018-05-26 04:47] LABS: Anisocytosis Slight; Basophils # (A) 0.1 k/uL (0-0.2); Basophils % (A) 0 %; Eosinophils # (A) 0.1 k/uL (0-0.7); Eosinophils % (A) 1 %; HCT 26.7 % (34.0-46.0); HGB 8.4 gm/dL (11.4-16.0); Hypochromasia Moderate; Lymphocytes # (A) 0.9 k/uL (1.0-4.8); Lymphocytes % (A) 5 %; MCHC 31.4 g/dL (31.0-37.0); MCV 85.9 fL (80.0-100.0); Mean Platelet Volume 8.4; Monocytes # (A) 0.9 k/uL (0-1.0); Monocytes % (A) 5 %; Neutrophils # (A) 17.3 k/uL (1.3-7.7); Neutrophils % (A) 89 %; Platelet Count 262 k/uL (150-450); Poikilocytosis Slight; RBC 3.11 m/uL (3.80-5.40); RDW 19.1 % (11.5-15.5); WBC 19.4 k/uL (3.8-10.6)
[2018-05-26 04:50] LABS: Glucose,Whole Blood 81 mg/dL (75-99)
[2018-05-26] MEDS: INSULIN ASPART 100 UNIT/ML 1 ML 10 ML VIAL SQ SCH ×5 (04:54→20:48)
[2018-05-26 05:00] LABS: Calcium 8.6 mg/dL (8.4-10.2); Phosphorus 5.4 mg/dL (2.5-4.5); Potassium 4.5 mmol/L (3.5-5.1)
[2018-05-26 05:12] LABS: ABG Base Excess 6.9 mmol/L; ABG HCO3 32 mmol/L (21-25); ABG Oxygen Saturation 97.4 % (94-97); ABG PCO2 51 mmHg (35-45); ABG PO2 85 mmHg (83-108); ABG TCO2 33 mmol/L (19-24)
[2018-05-26 06:28] LABS: Glucose,Whole Blood 75 mg/dL (75-99)
[2018-05-26 08:07] LABS: Glucose,Whole Blood 75 mg/dL (75-99)
--- NOTE | 2018-05-26 08:56 | XR ---
EXAMINATION TYPE: XR chest 1V portable DATE OF EXAM: 05/26/2018 HISTORY: Shortness of breath. COMPARISON: None. TECHNIQUE: Single view of the chest is submitted. FINDINGS: Tracheostomy tube is appropriately placed. NG tube has been removed. Right-sided central venous line unchanged in position. Demonstrated are scattered senescent parenchymal change. Continued left basilar opacity which may reflect a combination of fluid, atelectasis and/or infiltrat e. The heart is stable. Hilar and mediastinal structures are within normal limits. Degenerative changes are seen of the dorsal spine. IMPRESSION: 1. Stable appearance of the chest.
--- NOTE | 2018-05-26 09:10 | P.PN ---
Subjective Progress Note Date: 05/26/18 Principal diagnosis: This 67-year-old female is followed up with acute kidney injury secondary to prerenal, congestive heart failure atrial fibrillation. She was reintubated and remains on the vent, has now had taken PEG. She is on levo fed and on Diprivan. She has been started on IV fluid since and the Lasix has been discontinued. Currently she is obtunded sedated. Her urine output is 1736, intake is 2337. Her creatinine continues to go up. A chest x-ray shows no significant change and there may be some suggestion of CHF, her vent setting is 50% FiO2 unchanged. Her creatinine continues to go up slowly, possibly a reflection of vancomycin toxicity and now she is on Bactrim which is an add further risks for renal injury and hyperkalemia She was admitted with acute on chronic hypoxic respiratory failure, with pulmonary edema due to combination of acute diastolic CHF exacerbation and fluid redistribution in the background of chronic renal insufficiency with A. fib with RVR with obstructive lung disease, obesity hypoventilation and chronic hypercarbic respiratory failure; status post endotracheal intubation Objective - Vital Signs Vital signs: Vital Signs Temp 98.7 F 05/26/18 08:00 Pulse 80 05/26/18 08:00 Resp 16 05/26/18 08:00 BP 105/57 05/24/18 16:39 Pulse Ox 100 05/26/18 08:00 Intake & Output 05/25/18 05/26/18 05/26/18 18:59 06:59 18:59 Intake Total 1507.928 830.022 Output Total 693 1043 125 Balance 814.928 -212.978 -125 Weight 121.6 kg Intake: IV 1225 575 Sodium Chloride 0.9% 1, 675 75 000 ml @ 75 mls/hr IV . [id number] [facility] Rx#:[id number] Sulfamethox-Tmp 80-16Mg/ 500 500 ml 160 mg In Dextrose 5% in Water 500 ml @ 250 mls /hr IVPB Q12HR [facility] Rx#: [id number] Intake, IV Titration 282.928 255.022 Amount Amiodarone 450 mg In 123.284 Dextrose 5% in Water 250 ml @ 0.5 MG/MIN 16.66 mls /hr IV .Q15H1M [facility] Rx#: [id number] Heparin Sod,Pork in 0.45% 0 226.648 NaCl 25,000 unit In 0.45 % NaCl 1 500ml.bag @ 9.8 UNITS/KG/HR 21.91 mls/hr IV .[id number] [facility] Rx#: [id number] Norepinephrine 16 mg In 11.228 7.821 Dextrose 5% in Water 250 ml @ Titrate IV .Q0M [facility] Rx#:[id number] Norepinephrine 16 mg In 20.553 Sodium Chloride 0.9% 250 ml @ Titrate IV .Q0M [facility] Rx#:[id number] Propofol 1,000 mg In 148.416 Empty Bag 1 bag @ Titrate IV .Q0M [facility] Rx#: [id number] Output: Urine 683 1043 125 Estimated Blood Loss 10 Other: Voiding Method Indwelling Catheter Indwelling Catheter ABP, PAP, CO, CI - Last Documented Arterial Blood Pressure 100/48 On examination she is obtunded on the vent on 50% FiO2 on levo fed. Seems to be normal sinus rhythm on the monitor A chin exam no JVP neck is supple no facial asymmetry Lungs are clear to auscultation fair air entry bilaterally. She has a track. Heart sounds are unremarkable for any murmur rub gallop somewhat distant heart sounds Abdomen is obese but otherwise unremarkable. Extremity exam was 2+ edema Warm to touch Neurologically obtunded. - Labs CBC & Chem 7: 05/26/18 04:15 05/26/18 04:15 Labs: Abnormal Lab Results - Last 24 Hours (Table) 05/25/18 05/25/18 05/25/18 Range/Units 11:46 15:00 20:45 WBC (3.8-10.6) k/uL RBC (3.80-5.40) m/uL Hgb (11.4-16.0) gm/dL Hct (34.0-46.0) % RDW (11.5-15.5) % Neutrophils # (1.3-7.7) k/uL Lymphocytes # (1.0-4.8) k/uL APTT (22.0-30.0) sec ABG pCO2 (35-45) mmHg ABG HCO3 (21-25) mmol/L ABG Total CO2 (19-24) mmol/L ABG O2 Saturation (94-97) % Sodium 126 L 125 L (137-145) mmol/L Chloride (98-107) mmol/L Carbon Dioxide (22-30) mmol/L BUN (7-17) mg/dL Creatinine (0.52-1.04) mg/dL Glucose (74-99) mg/dL POC Glucose (mg/dL) 117 H (75-99) mg/dL Osmolality (280-301) mosm/kg Phosphorus (2.5-4.5) mg/dL 05/25/18 05/25/18 05/25/18 Range/Units 20:45 22:45 23:35 WBC (3.8-10.6) k/uL RBC (3.80-5.40) m/uL Hgb (11.4-16.0) gm/dL Hct (34.0-46.0) % RDW (11.5-15.5) % Neutrophils # (1.3-7.7) k/uL Lymphocytes # (1.0-4.8) k/uL APTT 38.2 H (22.0-30.0) sec ABG pCO2 (35-45) mmHg ABG HCO3 (21-25) mmol/L ABG Total CO2 (19-24) mmol/L ABG O2 Saturation (94-97) % Sodium (137-145) mmol/L Chloride (98-107) mmol/L Carbon Dioxide (22-30) mmol/L BUN (7-17) mg/dL Creatinine (0.52-1.04) mg/dL Glucose (74-99) mg/dL POC Glucose (mg/dL) 115 H (75-99) mg/dL Osmolality 278 L (280-301) mosm/kg Phosphorus (2.5-4.5) mg/dL 05/26/18 05/26/18 05/26/18 Range/Units 04:15 04:15 04:15 WBC 19.4 H (3.8-10.6) k/uL RBC 3.11 L (3.80-5.40) m/uL Hgb 8.4 L (11.4-16.0) gm/dL Hct 26.7 L (34.0-46.0) % RDW 19.1 H (11.5-15.5) % Neutrophils # 17.3 H (1.3-7.7) k/uL Lymphocytes # 0.9 L (1.0-4.8) k/uL APTT 84.8 H (22.0-30.0) sec ABG pCO2 (35-45) mmHg ABG HCO3 (21-25) mmol/L ABG Total CO2 (19-24) mmol/L ABG O2 Saturation (94-97) % Sodium 124 L (137-145) mmol/L Chloride 87 L (98-107) mmol/L Carbon Dioxide 31 H (22-30) mmol/L BUN 55 H (7-17) mg/dL Creatinine 1.60 H (0.52-1.04) mg/dL Glucose 65 L (74-99) mg/dL POC Glucose (mg/dL) (75-99) mg/dL Osmolality (280-301) mosm/kg Phosphorus 5.4 H (2.5-4.5) mg/dL 05/26/18 Range/Units 05:09 WBC (3.8-10.6) k/uL RBC (3.80-5.40) m/uL Hgb (11.4-16.0) gm/dL Hct (34.0-46.0) % RDW (11.5-15.5) % Neutrophils # (1.3-7.7) k/uL Lymphocytes # (1.0-4.8) k/uL APTT (22.0-30.0) sec ABG pCO2 51 H (35-45) mmHg ABG HCO3 32 H (21-25) mmol/L ABG Total CO2 33 H (19-24) mmol/L ABG O2 Saturation 97.4 H (94-97) % Sodium (137-145) mmol/L Chloride (98-107) mmol/L Carbon Dioxide (22-30) mmol/L BUN (7-17) mg/dL Creatinine (0.52-1.04) mg/dL Glucose (74-99) mg/dL POC Glucose (mg/dL) (75-99) mg/dL Osmolality (280-301) mosm/kg Phosphorus (2.5-4.5) mg/dL Microbiology - Last 24 Hours (Table) 05/24/18 12:19 Urine Culture - Final Urine,Voided Charmaine albicans 05/24/18 13:00 Blood Culture - Preliminary Blood No Growth after 24 hours 05/24/18 12:30 Blood Culture - Preliminary Blood No Growth after 24 hours 05/24/18 16:00 Gram Stain - Preliminary Sputum Sputum Culture - Preliminary Assessment and Plan Assessment: Impression 1. Acute kidney injury with component from cardiorenal syndrome, somewhat fluid overloaded with chest x-ray is suggestive congestive heart failure and edema. Additionally there may be septic component as she deteriorated and had to be reintubated vessel specialist 05/22/2018. Additionally patient is on vancomycin which is adding to her risk of ATN, vancomycin levels have been high. Her vancomycin was discontinued she is on Bactrim. Her creatinine has gone up over the last 2 days slowly from 1.3 a day close to 1.6 this morning.. 2. Baseline creatinine unknown. 3. Atrial fibrillation on amiodrone. Heart rate controlled at 90s. Seems to be normal sinus rhythm today 4. Moderate edema, Congestive heart failure, chest x-ray seems to be about same , remains on 50% FiO2. Currently on IV fluids 5. Hypo-natremia secondary to volume overload, sodium went down to 124, and secondary to acute kidney injury 6. Mild respiratory acidosis pH 7.4 and pCO2 is 51, mild metabolic alkalosis with bicarb of 31. Recommendation 1. Will discuss with the modeling director and Maintain IV normal saline at 75 an hour, and add Lasix to improve her hyponatremia and ovoid CHF, the cause of worsening creatinine IV is from the vancomycin and it will continue to go up for a few days restrictive the fluid. 2. Avoid nephrotoxic medication including vancomycin, which is discontinued yesterday 05/22/2018 3. If possible discontinue Bactrim and use alternative. 3. Regarding the hyponatremia, she was given Samsca yesterday and seems to have not worked. 4. Maintain antibiotics for possible sepsis and pneumonia 5. Monitor labs closely on a daily basis
[2018-05-26] MEDS: BISACODYL 10 MG SUPP RECTAL SCH (09:26)
[2018-05-26] MEDS: ASPIRIN 325 MG TAB PO SCH (09:26)
[2018-05-26] MEDS: SULFAMETHOX TMP IVPB SCH ×4 (09:26→22:33)
[2018-05-26] MEDS: AMIODARONE 200 MG TAB PO SCH ×2 (09:26→21:59)
[2018-05-26] MEDS: DEXTROSE 5% IVPB SCH ×4 (09:26→22:33)
[2018-05-26] MEDS: CHLORHEXIDINE GLUCONATE 15 ML CUP MUCOUS MEM SCH ×2 (09:26→21:59)
[2018-05-26] MEDS: PANTOPRAZOLE 40 MG/10 ML VIAL IV SCH (09:26)
[2018-05-26] MEDS: WATER IVPB SCH ×4 (09:26→22:33)
[2018-05-26] MEDS: FUROSEMIDE 10 MG/ML 2 ML VIAL IV SCH ×2 (09:27→22:00)
[2018-05-26] MEDS: SODIUM CHLORIDE TAB 1 GM TAB PO SCH ×2 (09:35→22:00)
--- NOTE | 2018-05-26 09:46 | P.PCN ---
Date of Procedure: 05/25/18 Preoperative Diagnosis: Respiratory failure with inability to wean vent Postoperative Diagnosis: Same Procedure(s) Performed: Tracheostomy Anesthesia: JOSI Surgeon: Joey Bravo Estimated Blood Loss (ml): 10 Pathology: none sent Condition: stable Disposition: no change Indications for Procedure: The patient has been unable to be weaned from the vent. Operative Findings: No significant abnormalities Description of Procedure: With the patient in supine position, under benefit of IV sedation, already on the ventilator and intubated, we prepped and draped in standard fashion. We made a small transverse incision 2 fingerbreadths above the sternal notch. We incised suprafascial fascias transversely and split strap muscles in midline. A couple of large venous branches were divided and tied with silk ligatures. We grasped the first tracheal ring with a tracheal hook and place it on traction superiorly. We incised the second through fourth tracheal rings longitudinally. We spread the opening. The endotracheal tube was taken above this opening. We placed a #8 Shiley proximal XLT tube. We were easily able to ventilate with this and there was no obvious air leak. The corners of the incision were closed with nylon. The same stitches were utilized to secure the flanges of the trach tube. Hemostasis was Excellent throughout the procedure. We checked for bleeding prior to closing the edges of the wound. Sterile dressings were applied. The patient tolerated the procedure well and we proceeded with PEG tube.
--- NOTE | 2018-05-26 09:50 | P.PCN ---
Date of Procedure: 05/26/18 Preoperative Diagnosis: Inability to swallow secondary to that dependency and requiring nutrition Postoperative Diagnosis: Same Procedure(s) Performed: Insertion of percutaneous endoscopic gastrostomy tube Anesthesia: JOSI Surgeon: Joey Bravo Estimated Blood Loss (ml): 5 Pathology: none sent Condition: stable Disposition: ICU Indications for Procedure: The patient remains intubated and now has a trach. She is unable to swallow due to multiple medical comorbidities. The patient requires nutrition. Operative Findings: No significant abnormalities were seen Description of Procedure: With the patient spine position, under benefit of IV sedation and with tracheostomy for airway, we prepped and draped. We introduced the endoscope under direct visualization. We traversed the esophagus and entered the stomach. The stomach was insufflated. We isolated an area on the anterior abdominal wall just below the left costal margin. We made a transverse incision. Through this we placed a needle and trocar directly into the stomach. The inner trocar was removed and a guidewire placed through the needle. It was grasped with a snare through the scope and brought out through the mouth. Retrograde over this we placed the PEG tube. We advanced it by pushing until it exited the anterior abdominal wall over the guidewire. We then grasped it and using traction brought the mushroom tip down into the stomach. The guidewires removed after we followed it down with the scope. We found the mushroom tip to be abutting the gastric mucosa without pressure. Appropriate adapters were applied. All possible air was removed. The scope was removed. Sterile dressings were applied. The patient tolerated the procedure well and was then taken to intensive care in stable condition.
--- NOTE | 2018-05-26 12:22 | P.PN ---
Subjective Progress Note Date: 05/26/18 Principal diagnosis: Respiratory failure with inability to wean mechanical ventilation, inability to swallow secondary to mechanical ventilator dependency and requiring nutrition, COPD with chronic CO2 retention who is home oxygen dependent, obstructive sleep apnea with nocturnal BiPAP dependency, chronic kidney disease stage III, type 2 diabetes mellitus, diastolic heart failure, history of chronic decubitus ulcers , morbid obesity with a BMI of 42.8 and chronic atrial fibrillation on home anticoagulation therapy Eliquis. POD #1 tracheostomy placement using a #8 Shiley proximal XLT tube. POD #1 insertion of percutaneous endoscopic gastrostomy tube. The patient is currently laying in bed with mechanical ventilator support. She had a tracheostomy placed yesterday using a #8 Shiley proximal XLT tube. Sedation is currently on hold and she is following some verbal simple commands. Tube feedings will be reinitiated after 24 hours of PEG tube placement. Patient is afebrile. She continues to be on norepinephrine at 2 mcg/m. Bedside telemetry showing atrial fibrillation heart rate 88. Objective - Vital Signs Vital signs: Vital Signs Temp 98.7 F 05/26/18 08:00 Pulse 78 05/26/18 11:33 Resp 14 05/26/18 11:00 BP 105/57 05/24/18 16:39 Pulse Ox 100 05/26/18 11:00 Intake & Output 05/25/18 05/26/18 05/26/18 18:59 06:59 18:59 Intake Total 1507.928 830.022 255.231 Output Total 693 1043 400 Balance 814.928 -212.978 -144.769 Weight 121.6 kg Intake: IV 1225 575 250 Sodium Chloride 0.9% 1, 675 75 000 ml @ 75 mls/hr IV . [id number] [facility] Rx#:[id number] Sulfamethox-Tmp 80-16Mg/ 500 500 250 ml 160 mg In Dextrose 5% in Water 500 ml @ 250 mls /hr IVPB Q12HR [facility] Rx#: [id number] Intake, IV Titration 282.928 255.022 5.231 Amount Amiodarone 450 mg In 123.284 Dextrose 5% in Water 250 ml @ 0.5 MG/MIN 16.66 mls /hr IV .Q15H1M [facility] Rx#: [id number] Heparin Sod,Pork in 0.45% 0 226.648 NaCl 25,000 unit In 0.45 % NaCl 1 500ml.bag @ 9.8 UNITS/KG/HR 21.91 mls/hr IV .[id number] [facility] Rx#: [id number] Norepinephrine 16 mg In 11.228 7.821 Dextrose 5% in Water 250 ml @ Titrate IV .Q0M [facility] Rx#:[id number] Norepinephrine 16 mg In 20.553 5.231 Sodium Chloride 0.9% 250 ml @ Titrate IV .Q0M [facility] Rx#:[id number] Propofol 1,000 mg In 148.416 Empty Bag 1 bag @ Titrate IV .Q0M [facility] Rx#: [id number] Output: Urine 683 1043 400 Estimated Blood Loss 10 Other: Voiding Method Indwelling Catheter Indwelling Catheter Indwelling Catheter ABP, PAP, CO, CI - Last Documented Arterial Blood Pressure 107/55 - Constitutional General appearance: Present: cooperative, morbidly obese, no acute distress - Respiratory Details: Lung sounds are essentially clear throughout, diminished bilateral bases. Respirations are symmetrical and nonlabored with mechanical ventilator support. Current ventilator settings are as follows: Assist control 20, tidal volume 400, FiO2 40%, PEEP of 5. Oxygen saturation are 100% on these current settings. #8 Shiley proximal XLT trach in place and secured with mechanical ventilator support. - Cardiovascular Details: Irregular rhythm with controlled rate. S1 and S2 present, negative for S3, gallop or murmur. Bedside telemetry showing atrial fibrillation heart rate 88. Right subclavian triple-lumen catheter in place and functioning. Current CVP pressure is 10 mmHg. Sequential compression devices in place to her bilateral lower extremities. - Gastrointestinal Gastrointestinal Comment(s): Abdomen is soft, nontender and nondistended. Obese. Active bowel sounds all 4 abdominal quadrants. PEG tube in place and capped. - Genitourinary Genitourinary Comment(s): Hernandez catheter for accurate I&O. Draining clear yellow urine. - Integumentary Integumentary Comment(s): Skin is warm and dry. No clubbing or cyanosis present. Stage II wounds to her back area. - Neurologic Neurologic Comment(s): No focal deficits. She is moving all 4 extremities appropriately with verbal command. - Musculoskeletal Musculoskeletal: Present: generalized weakness, strength equal bilaterally - Allied health notes Allied health notes reviewed: nursing - Labs CBC & Chem 7: 05/26/18 04:15 05/26/18 04:15 Labs: Abnormal Lab Results - Last 24 Hours (Table) 05/25/18 05/25/18 05/25/18 Range/Units 11:46 15:00 20:45 WBC (3.8-10.6) k/uL RBC (3.80-5.40) m/uL Hgb (11.4-16.0) gm/dL Hct (34.0-46.0) % RDW (11.5-15.5) % Neutrophils # (1.3-7.7) k/uL Lymphocytes # (1.0-4.8) k/uL APTT (22.0-30.0) sec ABG pCO2 (35-45) mmHg ABG HCO3 (21-25) mmol/L ABG Total CO2 (19-24) mmol/L ABG O2 Saturation (94-97) % Sodium 126 L 125 L (137-145) mmol/L Chloride (98-107) mmol/L Carbon Dioxide (22-30) mmol/L BUN (7-17) mg/dL Creatinine (0.52-1.04) mg/dL Glucose (74-99) mg/dL POC Glucose (mg/dL) 117 H (75-99) mg/dL Osmolality (280-301) mosm/kg Phosphorus (2.5-4.5) mg/dL 05/25/18 05/25/18 05/25/18 Range/Units 20:45 22:45 23:35 WBC (3.8-10.6) k/uL RBC (3.80-5.40) m/uL Hgb (11.4-16.0) gm/dL Hct (34.0-46.0) % RDW (11.5-15.5) % Neutrophils # (1.3-7.7) k/uL Lymphocytes # (1.0-4.8) k/uL APTT 38.2 H (22.0-30.0) sec ABG pCO2 (35-45) mmHg ABG HCO3 (21-25) mmol/L ABG Total CO2 (19-24) mmol/L ABG O2 Saturation (94-97) % Sodium (137-145) mmol/L Chloride (98-107) mmol/L Carbon Dioxide (22-30) mmol/L BUN (7-17) mg/dL Creatinine (0.52-1.04) mg/dL Glucose (74-99) mg/dL POC Glucose (mg/dL) 115 H (75-99) mg/dL Osmolality 278 L (280-301) mosm/kg Phosphorus (2.5-4.5) mg/dL 05/26/18 05/26/18 05/26/18 Range/Units 04:15 04:15 04:15 WBC 19.4 H (3.8-10.6) k/uL RBC 3.11 L (3.80-5.40) m/uL Hgb 8.4 L (11.4-16.0) gm/dL Hct 26.7 L (34.0-46.0) % RDW 19.1 H (11.5-15.5) % Neutrophils # 17.3 H (1.3-7.7) k/uL Lymphocytes # 0.9 L (1.0-4.8) k/uL APTT 84.8 H (22.0-30.0) sec ABG pCO2 (35-45) mmHg ABG HCO3 (21-25) mmol/L ABG Total CO2 (19-24) mmol/L ABG O2 Saturation (94-97) % Sodium 124 L (137-145) mmol/L Chloride 87 L (98-107) mmol/L Carbon Dioxide 31 H (22-30) mmol/L BUN 55 H (7-17) mg/dL Creatinine 1.60 H (0.52-1.04) mg/dL Glucose 65 L (74-99) mg/dL POC Glucose (mg/dL) (75-99) mg/dL Osmolality (280-301) mosm/kg Phosphorus 5.4 H (2.5-4.5) mg/dL 05/26/18 Range/Units 05:09 WBC (3.8-10.6) k/uL RBC (3.80-5.40) m/uL Hgb (11.4-16.0) gm/dL Hct (34.0-46.0) % RDW (11.5-15.5) % Neutrophils # (1.3-7.7) k/uL Lymphocytes # (1.0-4.8) k/uL APTT (22.0-30.0) sec ABG pCO2 51 H (35-45) mmHg ABG HCO3 32 H (21-25) mmol/L ABG Total CO2 33 H (19-24) mmol/L ABG O2 Saturation 97.4 H (94-97) % Sodium (137-145) mmol/L Chloride (98-107) mmol/L Carbon Dioxide (22-30) mmol/L BUN (7-17) mg/dL Creatinine (0.52-1.04) mg/dL Glucose (74-99) mg/dL POC Glucose (mg/dL) (75-99) mg/dL Osmolality (280-301) mosm/kg Phosphorus (2.5-4.5) mg/dL Microbiology - Last 24 Hours (Table) 05/24/18 12:19 Urine Culture - Final Urine,Voided Charmaine albicans 05/24/18 13:00 Blood Culture - Preliminary Blood No Growth after 24 hours 05/24/18 12:30 Blood Culture - Preliminary Blood No Growth after 24 hours - Imaging and Cardiology Chest x-ray: report reviewed, image reviewed Assessment and Plan (1) Chronic atrial fibrillation Current Visit: Yes Status: Acute Code(s): I48.2 - CHRONIC ATRIAL FIBRILLATION SNOMED Code(s): 263591250 (2) Morbid obesity Current Visit: Yes Status: Acute Code(s): E66.01 - MORBID (SEVERE) OBESITY DUE TO EXCESS CALORIES SNOMED Code(s): 782853080 (3) MRSA pneumonia Current Visit: Yes Status: Acute Code(s): J15.212 - PNEUMONIA DUE TO METHICILLIN RESISTANT STAPHYLOCOCCUS AUREUS SNOMED Code(s): 209727920633442 (4) Hypotension Current Visit: Yes Status: Acute Code(s): I95.9 - HYPOTENSION, UNSPECIFIED SNOMED Code(s): 17922578 (5) C. difficile colitis Current Visit: Yes Status: Acute Code(s): A04.72 - ENTEROCOLITIS D/T CLOSTRIDIUM DIFFICILE, NOT SPCF RECUR SNOMED Code(s): 601959675 (6) Chronic hypoxemic respiratory failure Current Visit: Yes Status: Acute Code(s): J96.11 - CHRONIC RESPIRATORY FAILURE WITH HYPOXIA SNOMED Code(s): 827159813 (7) Acute respiratory failure Current Visit: Yes Status: Acute Priority: High Code(s): J96.00 - ACUTE RESPIRATORY FAILURE, UNSP W HYPOXIA OR HYPERCAPNIA SNOMED Code(s): 40340308 (8) COPD (chronic obstructive pulmonary disease) Current Visit: Yes Status: Acute Priority: High Code(s): J44.9 - CHRONIC OBSTRUCTIVE PULMONARY DISEASE, UNSPECIFIED SNOMED Code(s): 03257943 (9) Chronic renal insufficiency, stage III (moderate) Current Visit: Yes Status: Acute Code(s): N18.3 - CHRONIC KIDNEY DISEASE, STAGE 3 (MODERATE) SNOMED Code(s): 659916729 (10) Pressure ulcer of buttock Current Visit: Yes Status: Acute Code(s): L89.309 - PRESSURE ULCER OF UNSPECIFIED BUTTOCK, UNSPECIFIED STAGE SNOMED Code(s): 194549617 Plan: 1. Restart tube feedings per her PEG tube when it has been 24 hours post PEG tube placement. 2. Mechanical ventilator settings and pulmonary management recommendations per Dr. Laws. 3. GI and DVT prophylaxis in place. 4. Medical management per primary care service. 5. We will follow the patient on an as-needed basis. Time with Patient: Greater than 30
--- NOTE | 2018-05-26 12:32 | P.PN ---
Subjective Progress Note Date: 05/26/18 Principal diagnosis: Respiratory failure Patient continues to be on Levophed. She showed some signs of discomfort on the vent. Objective - Vital Signs Vital signs: Vital Signs Temp 98.7 F 05/26/18 08:00 Pulse 78 05/26/18 11:33 Resp 14 05/26/18 11:00 BP 105/57 05/24/18 16:39 Pulse Ox 100 05/26/18 11:00 Intake & Output 05/25/18 05/26/18 05/26/18 18:59 06:59 18:59 Intake Total 1507.928 830.022 255.231 Output Total 693 1043 400 Balance 814.928 -212.978 -144.769 Weight 121.6 kg Intake: IV 1225 575 250 Sodium Chloride 0.9% 1, 675 75 000 ml @ 75 mls/hr IV . [id number] [facility] Rx#:[id number] Sulfamethox-Tmp 80-16Mg/ 500 500 250 ml 160 mg In Dextrose 5% in Water 500 ml @ 250 mls /hr IVPB Q12HR [facility] Rx#: [id number] Intake, IV Titration 282.928 255.022 5.231 Amount Amiodarone 450 mg In 123.284 Dextrose 5% in Water 250 ml @ 0.5 MG/MIN 16.66 mls /hr IV .Q15H1M [facility] Rx#: [id number] Heparin Sod,Pork in 0.45% 0 226.648 NaCl 25,000 unit In 0.45 % NaCl 1 500ml.bag @ 9.8 UNITS/KG/HR 21.91 mls/hr IV .[id number] [facility] Rx#: [id number] Norepinephrine 16 mg In 11.228 7.821 Dextrose 5% in Water 250 ml @ Titrate IV .Q0M [facility] Rx#:[id number] Norepinephrine 16 mg In 20.553 5.231 Sodium Chloride 0.9% 250 ml @ Titrate IV .Q0M [facility] Rx#:[id number] Propofol 1,000 mg In 148.416 Empty Bag 1 bag @ Titrate IV .Q0M [facility] Rx#: [id number] Output: Urine 683 1043 400 Estimated Blood Loss 10 Other: Voiding Method Indwelling Catheter Indwelling Catheter Indwelling Catheter ABP, PAP, CO, CI - Last Documented Arterial Blood Pressure 107/55 - Exam General: Ill Appearing, moderate distress, morbidly obese, appears at stated age Derm: warm, dry, dressing in place over left lower extremity wound Head: atraumatic, normocephalic, symmetric Eyes: EOMI, no lid lag, anicteric sclera Mouth: no lip lesion, mucus membranes moist Neck: Trach in place Cardiovascular: S1S2 reg, no murmur, positive posterior tibial pulse bilateral, Lungs: Coarse breath sounds bilaterally, no rhonchi, no rales , no accessory muscle use, on 10 Abdominal: soft, PEG in place, nontender to palpation, no guarding, organs unable to be palpated Ext: no gross muscle atrophy, 1+ pitting edema, no contractures Neuro: CN II-XI grossly intact, not moving any 4 extremities currently blood per nursing moving all 4 extremities Psych: On vent - Labs CBC & Chem 7: 05/26/18 04:15 05/26/18 04:15 Labs: Abnormal Lab Results - Last 24 Hours (Table) 05/25/18 05/25/18 05/25/18 Range/Units 15:00 20:45 20:45 WBC (3.8-10.6) k/uL RBC (3.80-5.40) m/uL Hgb (11.4-16.0) gm/dL Hct (34.0-46.0) % RDW (11.5-15.5) % Neutrophils # (1.3-7.7) k/uL Lymphocytes # (1.0-4.8) k/uL APTT 38.2 H (22.0-30.0) sec ABG pCO2 (35-45) mmHg ABG HCO3 (21-25) mmol/L ABG Total CO2 (19-24) mmol/L ABG O2 Saturation (94-97) % Sodium 126 L 125 L (137-145) mmol/L Chloride (98-107) mmol/L Carbon Dioxide (22-30) mmol/L BUN (7-17) mg/dL Creatinine (0.52-1.04) mg/dL Glucose (74-99) mg/dL POC Glucose (mg/dL) (75-99) mg/dL Osmolality (280-301) mosm/kg Phosphorus (2.5-4.5) mg/dL 05/25/18 05/25/18 05/26/18 Range/Units 22:45 23:35 04:15 WBC (3.8-10.6) k/uL RBC (3.80-5.40) m/uL Hgb (11.4-16.0) gm/dL Hct (34.0-46.0) % RDW (11.5-15.5) % Neutrophils # (1.3-7.7) k/uL Lymphocytes # (1.0-4.8) k/uL APTT 84.8 H (22.0-30.0) sec ABG pCO2 (35-45) mmHg ABG HCO3 (21-25) mmol/L ABG Total CO2 (19-24) mmol/L ABG O2 Saturation (94-97) % Sodium (137-145) mmol/L Chloride (98-107) mmol/L Carbon Dioxide (22-30) mmol/L BUN (7-17) mg/dL Creatinine (0.52-1.04) mg/dL Glucose (74-99) mg/dL POC Glucose (mg/dL) 115 H (75-99) mg/dL Osmolality 278 L (280-301) mosm/kg Phosphorus (2.5-4.5) mg/dL 05/26/18 05/26/18 05/26/18 Range/Units 04:15 04:15 05:09 WBC 19.4 H (3.8-10.6) k/uL RBC 3.11 L (3.80-5.40) m/uL Hgb 8.4 L (11.4-16.0) gm/dL Hct 26.7 L (34.0-46.0) % RDW 19.1 H (11.5-15.5) % Neutrophils # 17.3 H (1.3-7.7) k/uL Lymphocytes # 0.9 L (1.0-4.8) k/uL APTT (22.0-30.0) sec ABG pCO2 51 H (35-45) mmHg ABG HCO3 32 H (21-25) mmol/L ABG Total CO2 33 H (19-24) mmol/L ABG O2 Saturation 97.4 H (94-97) % Sodium 124 L (137-145) mmol/L Chloride 87 L (98-107) mmol/L Carbon Dioxide 31 H (22-30) mmol/L BUN 55 H (7-17) mg/dL Creatinine 1.60 H (0.52-1.04) mg/dL Glucose 65 L (74-99) mg/dL POC Glucose (mg/dL) (75-99) mg/dL Osmolality (280-301) mosm/kg Phosphorus 5.4 H (2.5-4.5) mg/dL Microbiology - Last 24 Hours (Table) 05/24/18 16:00 Gram Stain - Preliminary Sputum Sputum Culture - Preliminary Gram Neg Bacilli 05/24/18 12:19 Urine Culture - Final Urine,Voided Charmaine albicans 05/24/18 13:00 Blood Culture - Preliminary Blood No Growth after 24 hours 05/24/18 12:30 Blood Culture - Preliminary Blood No Growth after 24 hours Assessment and Plan Plan: Pneumonia, likely healthcare, growing out stenotrophomonas and earlier grew MRSA -Resume Bactrim which is active against above grown organisms. -Pulmonary and infectious disease following -Pulmonary hygiene -Blood cultures done on 05/24, will follow Hyponatremia-hypervolemic -Secondary to acute kidney injury, poor solute intake. Patient was started on normal saline this morning as well as Lasix. -Follow sodiums -Nephrology recommendations: Minimal water flushes due to hyponatremia with tube feeds Anemia, worsening with iron deficiency -2 units of packed red blood cells today - monitor for signs of bleeding - Appears to have iron deficiency anemia, status post 3 doses of IV iron Acute systolic CHF exacerbation with ejection fraction 30-35% -IV Lasix -Ideally will need to be on an ALEJA inhibitor but cannot tolerate secondary to renal failure and hypotension -Ideally beta carola but contraindicated due to hypotension BASIA on CKD stage III with hyponatremia - nephrology following, renal function plateaued - renal dose medications - avoid additional nephrotoxic agents P. A. fib with RVR -On oral amiodarone - on heparin gtt Acute on chronic hypoxic hypercapnic respiratory failure due to obesity hypoventilation syndrome and pneumonia -Vent management per pulmonary critical care Morbid obesity BMI 42 - structured outpatient weight loss Stage III decubitus ulcers with possible mild cellulitis -ID recs - off load - barrier cream COPD without exacerbation - pulm following - bronchdilators Acute on chronic debility -Physical therapy evaluation 1 respiratory status stable Resolved: septic shock A fib with RVR Subacute diarrhea Hypoglycemia, resolved DVT prophylaxis: heparin gtt Discussed with: nursing Anticipated discharge: 3-[address]: Likely will need SNF A total of 35 minutes was spent on the care of this complex patient more than 50 % of the time was spent in counseling and care coordination.
[2018-05-26 13:22] LABS: Prothrombin Time 9.7 sec (9.0-12.0)
--- NOTE | 2018-05-26 13:59 | P.PN ---
Subjective Progress Note Date: 05/26/18 On today's evaluation of 05/24/2018, the patient is intubated on a mechanical ventilator. She is sedated with Diprivan. Earlier this morning she was on 20 mics of the prevent and she was able to arouse open up her eyes and moving extremities. She is on a mechanical ventilator assist control mode and this morning she assist control of 20 with a tidal volume of 400 and FiO2 of 40% and a PEEP of 5. The chest x-ray showing a left lower lobe consolidation. The blood gases showing a pH of 7.4 with a pCO2 of 59 and pO2 of 103 this was on FiO2 of 40%. The patient has been intubated. The patient has no significant orotracheal secretions. Sputum samples were sent is showing gram-negative bacillus which turns out to be a stenotrophomonas and insistent to IV Fortaz. I 'm assuming this to be also resistant to cefepime. The patient was effective in the past with MRSA and current antibiotic coverage including a combination of cefepime and Zyvox. Hemodynamically, the patient is hypotensive. The patient is currently on pressors and the patient is on 13 mics of norepinephrine infusion for hemodynamic support. The white cell count went as high as 31.7 and currently is down to 24.3. The patient was found to have a low hemoglobin this morning at 6.9. No evidence of any acute bleeding. She'll be given a total of 2 units of packed RBCs. Cardiothoracic surgery has been consulted in consultation for PEG and trach within next 24 hours. Meanwhile, the patient is tolerating her tube feeds. The renal function is stable and continues to improve. She is producing adequate amount of urine output. Her net fluid balance is positive over the past 24 hours. She remains in atrial fibrillation. The patient remains in a amiodarone drip. The patient is also IV heparin. Echocardiogram at shown impairment LV function with an ejection fraction of 30-35% and right ventricular being mildly enlarged and moderate degree of pulmonary hypertension. On today's evaluation of 05/25/2018, the patient remains intubated on a mechanical ventilator. As mentioned yesterday stenotrophomonas was cultured from the patient's lungs and without the second source of sepsis was a stenotrophomonas pneumonia. As such the patient was started on Bactrim and restless and this was discontinued. This was done in consultation with infectious disease. This morning she is afebrile. Her white cell count has dropped down to 18. She was weaned off the pressors and currently she is off pressors. The patient is also given a total of 2 units of packed RBC and hemoglobin is up to 8.6. The plan for today is to proceed with a PEG and trach. She remains on assist control mode of ventilation. She is on assist control of 20 with tidal volume of 400 and FiO2 of 40% and PEEP of 5. Morning blood gases showed a pH of 7.39 with a pCO2 of 55 and pO2 11. Chest x-ray shows stable consolidation of left lower lung. The sodium levels in the decline in the sodium level is down to 126 with a bicarb level of 32 and chloride level of 88. The patient will be started on normal saline infusion. The patient was receiving tube feeds which is currently on hold pending packed trach. The patient also is off IV heparin for her PEG and trach. This will be done within next few hours by Dr. Bravo. Otherwise she is still on low grade sedation and she is easily arousable. Echocardiogram at shown an impairment in the Function with an ejection fraction of 3035% with moderate degree of pulmonary hypertension. On 05/26/2018, the patient is post PEG and trach insertion. The procedure was done successfully and the patient was gradually weaned off the Diprivan and currently she is awake and alert and following commands and answering questions. She is moving all 4 extremities although there is significant motor weakness lower extremity is bilaterally. She is able to raise her arms against gravity. She is on a mechanical ventilator assist control mode and the vent setting are essentially same with an assist-control mode at the rate of 20 with a tidal volume of 400 and FiO2 of 40% and PEEP of 5. Chest x-ray shows left lower lobe consolidation. The blood gases from today showed a pH of 7.4 with a pCO2 of 51 and pO2 of 85. No significant secretions from his tracheostomy tube. The patient is breathing comfortably and she is synchronous with the mechanical ventilator. The fact he was also and then the patient be started on enteral feeding for nutritional support. Also, the patient is being monitored regarding her renal failure. Note that the patient is on Bactrim for stenotrophomonas and this was initiated after consultation with infectious disease. The patient's renal function is impaired yet it is stable for now and creatinine today is at 1.6, stable. Aggressive the electrolytes show a component of hyponatremia. The sodium was 129 and it gradually dropped over the past 3 days to 128 and 125 and 124. The patient was seen by nephrology. The patient was given normal saline infusion following that she was given Lasix and in addition to that she was given a tablet of Tolvaptan, 15mg which failed to improve her sodium level. At this point in time the patient is on sodium chloride tablets 1 g twice a day. She is also being given Lasix 20 mg every 12 hours pH is also on norepinephrine infusion for hemodynamic support. The patient is currently on 30 mics of norepinephrine infusion. She is also in atrial fibrillation with a controlled rate. She is on amiodarone, milligrams by mouth twice a day and IV heparin his back. No other significant events overnight otherwise. As mentioned earlier the patient's ejection fraction is around 30-35% consistent with CHF in addition to moderate degree of pulmonary hypertension. Objective - Vital Signs Vital signs: Vital Signs Temp 98.9 F 05/26/18 12:00 Pulse 88 05/26/18 13:30 Resp 17 05/26/18 13:30 BP 105/57 05/24/18 16:39 Pulse Ox 100 05/26/18 13:30 Intake & Output 05/25/18 05/26/18 05/26/18 18:59 06:59 18:59 Intake Total 1507.928 830.022 517.711 Output Total 693 1043 525 Balance 814.928 -212.978 -7.289 Weight 121.6 kg Intake: IV 1225 575 500 Sodium Chloride 0.9% 1, 675 75 000 ml @ 75 mls/hr IV . [id number] [facility] Rx#:[id number] Sulfamethox-Tmp 80-16Mg/ 500 500 500 ml 160 mg In Dextrose 5% in Water 500 ml @ 250 mls /hr IVPB Q12HR [facility] Rx#: [id number] Intake, IV Titration 282.928 255.022 17.711 Amount Amiodarone 450 mg In 123.284 Dextrose 5% in Water 250 ml @ 0.5 MG/MIN 16.66 mls /hr IV .Q15H1M [facility] Rx#: [id number] Heparin Sod,Pork in 0.45% 0 226.648 NaCl 25,000 unit In 0.45 % NaCl 1 500ml.bag @ 9.8 UNITS/KG/HR 21.91 mls/hr IV .[id number] [facility] Rx#: [id number] Norepinephrine 16 mg In 11.228 7.821 Dextrose 5% in Water 250 ml @ Titrate IV .Q0M [facility] Rx#:[id number] Norepinephrine 16 mg In 20.553 17.711 Sodium Chloride 0.9% 250 ml @ Titrate IV .Q0M [facility] Rx#:[id number] Propofol 1,000 mg In 148.416 Empty Bag 1 bag @ Titrate IV .Q0M [facility] Rx#: [id number] Output: Urine 683 1043 525 Estimated Blood Loss 10 Other: Voiding Method Indwelling Catheter Indwelling Catheter Indwelling Catheter ABP, PAP, CO, CI - Last Documented Arterial Blood Pressure 93/46 - Exam Gen. appearance obese, comfortable, awake and alert and the patient is a tracheostomy tube in place. The tracheostomy site is dry clean and intact. Head exam was generally normal. There was no scleral icterus or corneal arcus. Mucous membranes were moist. Neck was supple and without jugular venous distension, thyromegaly, or carotid bruits. Carotids were easily palpable bilaterally. There was no adenopathy. The patient has a right IJ triple-lumen catheter in place. Lungs sounds are diminished bilaterally along with some few scattered external wheezes heard throughout the lung loyd. Breath sounds are overall diminished. Heart sounds are irregular S1-S2, no cervical murmurs appreciated. Monitor the current heave or thrill. Abdomen is obese soft nontender. Organs cannot be accurately palpated. No direct tenderness. No rebound tenderness. No guarding. Extremities revealed +1 pitting edema and there is no cyanosis or clubbing at this point. No evidence of any acute cellulitis although there is some erythema in the left lower extremity. The PEG tube site is clean and the patient has no significant abdominal tenderness erythema or drainage around the tube. Skin shows a stage II small wounds i the back area. No open wounds or sores. No evidence of any cellulitis. Neurologically patient is off sedation awake and following commands and answering questions appropriately. She can follow commands easily. She has significant motor weakness lower extremities bilaterally and she is able to raise her arms against gravity with the motor function of 3 out of 5 in the upper extremities bilaterally. - Labs CBC & Chem 7: 05/26/18 04:15 05/26/18 04:15 Labs: Abnormal Lab Results - Last 24 Hours (Table) 05/25/18 05/25/18 05/25/18 Range/Units 15:00 20:45 20:45 WBC (3.8-10.6) k/uL RBC (3.80-5.40) m/uL Hgb (11.4-16.0) gm/dL Hct (34.0-46.0) % RDW (11.5-15.5) % Neutrophils # (1.3-7.7) k/uL Lymphocytes # (1.0-4.8) k/uL APTT 38.2 H (22.0-30.0) sec ABG pCO2 (35-45) mmHg ABG HCO3 (21-25) mmol/L ABG Total CO2 (19-24) mmol/L ABG O2 Saturation (94-97) % Sodium 126 L 125 L (137-145) mmol/L Chloride (98-107) mmol/L Carbon Dioxide (22-30) mmol/L BUN (7-17) mg/dL Creatinine (0.52-1.04) mg/dL Glucose (74-99) mg/dL POC Glucose (mg/dL) (75-99) mg/dL Osmolality (280-301) mosm/kg Phosphorus (2.5-4.5) mg/dL 05/25/18 05/25/18 05/26/18 Range/Units 22:45 23:35 04:15 WBC (3.8-10.6) k/uL RBC (3.80-5.40) m/uL Hgb (11.4-16.0) gm/dL Hct (34.0-46.0) % RDW (11.5-15.5) % Neutrophils # (1.3-7.7) k/uL Lymphocytes # (1.0-4.8) k/uL APTT 84.8 H (22.0-30.0) sec ABG pCO2 (35-45) mmHg ABG HCO3 (21-25) mmol/L ABG Total CO2 (19-24) mmol/L ABG O2 Saturation (94-97) % Sodium (137-145) mmol/L Chloride (98-107) mmol/L Carbon Dioxide (22-30) mmol/L BUN (7-17) mg/dL Creatinine (0.52-1.04) mg/dL Glucose (74-99) mg/dL POC Glucose (mg/dL) 115 H (75-99) mg/dL Osmolality 278 L (280-301) mosm/kg Phosphorus (2.5-4.5) mg/dL 05/26/18 05/26/18 05/26/18 Range/Units 04:15 04:15 05:09 WBC 19.4 H (3.8-10.6) k/uL RBC 3.11 L (3.80-5.40) m/uL Hgb 8.4 L (11.4-16.0) gm/dL Hct 26.7 L (34.0-46.0) % RDW 19.1 H (11.5-15.5) % Neutrophils # 17.3 H (1.3-7.7) k/uL Lymphocytes # 0.9 L (1.0-4.8) k/uL APTT (22.0-30.0) sec ABG pCO2 51 H (35-45) mmHg ABG HCO3 32 H (21-25) mmol/L ABG Total CO2 33 H (19-24) mmol/L ABG O2 Saturation 97.4 H (94-97) % Sodium 124 L (137-145) mmol/L Chloride 87 L (98-107) mmol/L Carbon Dioxide 31 H (22-30) mmol/L BUN 55 H (7-17) mg/dL Creatinine 1.60 H (0.52-1.04) mg/dL Glucose 65 L (74-99) mg/dL POC Glucose (mg/dL) (75-99) mg/dL Osmolality (280-301) mosm/kg Phosphorus 5.4 H (2.5-4.5) mg/dL 05/26/18 Range/Units 12:35 WBC (3.8-10.6) k/uL RBC (3.80-5.40) m/uL Hgb (11.4-16.0) gm/dL Hct (34.0-46.0) % RDW (11.5-15.5) % Neutrophils # (1.3-7.7) k/uL Lymphocytes # (1.0-4.8) k/uL APTT 57.2 H (22.0-30.0) sec ABG pCO2 (35-45) mmHg ABG HCO3 (21-25) mmol/L ABG Total CO2 (19-24) mmol/L ABG O2 Saturation (94-97) % Sodium (137-145) mmol/L Chloride (98-107) mmol/L Carbon Dioxide (22-30) mmol/L BUN (7-17) mg/dL Creatinine (0.52-1.04) mg/dL Glucose (74-99) mg/dL POC Glucose (mg/dL) (75-99) mg/dL Osmolality (280-301) mosm/kg Phosphorus (2.5-4.5) mg/dL Microbiology - Last 24 Hours (Table) 05/24/18 16:00 Gram Stain - Preliminary Sputum Sputum Culture - Preliminary Gram Neg Bacilli 05/24/18 12:19 Urine Culture - Final Urine,Voided Charmaine albicans 05/24/18 13:00 Blood Culture - Preliminary Blood No Growth after 24 hours 05/24/18 12:30 Blood Culture - Preliminary Blood No Growth after 24 hours Assessment and Plan Plan: Assessment 1 acute on top of chronic hypoxic and hypercapnic respiratory failure. Patient initially presented with a MRSA left lower lobe pneumonia. Most recent sputum analysis showing stenotrophomonas and the patient failed initial extubation the patient is currently post-tracheostomy tube insertion. Sedation has been discontinued. She remains on assist control mode of ventilation, volume cycle and the chest x-ray still showing a left lower lobe consolidation, probably related to a superinfection with stenotrophomonas and currently the patient on IV Bactrim. 2 MRSA pneumonia of the left lower lobe with subsequent gross with stenotrophomonas. Currently on Bactrim covering both MRSA and stenotrophomonas. Careful attention to the renal function specially the patient has a component of chronic renal failure. 3 acute hypotension and the patient is looking more septic as the patient is was resuscitated and the patient is currently pressor dependent with leukocytosis a new microorganism in her lungs/stenotrophomonas. In addition, the patient has an ejection fraction of 30-35%. The patient is still requiring low-dose pressors and currently she is on 30 mics of norepinephrine infusion for blood pressure support. 4 CHF with an ejection fraction of 30-35% and moderate degree of pulmonary hypertension. The patient has obvious systolic dysfunction 5 chronic kidney failure with stage III kidney disease and an acute kidney injury on top of chronic renal failure, likely secondary to hypotension, cardiorenal factors versus sepsis. Renal function is stable and the creatinine is down to 1.6 6 stage III chronic decubitus ulceration without evidence of an acute cellulitis 7 morbid obesity with a BMI 41.0 8 chronic atrial fibrillation and the rate is controlled. The patient is currently on oral amiodarone and IV heparin. 9 coronary artery disease 10 recent hospitalization for diarrhea/C. diff colitis and the stool analysis was negative and the patient completed the course of deficit on outpatient basis 11 hypertension 12 degenerative arthritis and sciatica and chronic shoulder and back pain and knee pain and the patient has been wheelchair bound 13 COPD 14 chronic anemia , posttransfusion with 2 units of packed RBC and hemoglobin is up to 8.4 15 hypochloremic hyponatremia, being managed by nephrology. Treatment offered for hyponatremia was noted and the patient is still having a low sodium of 124. Plan Continue vent support. Continue Bactrim. Repeat chest x-ray in the morning. Monitor renal function. Agree on salt tablets. Agree on Lasix. Monitor sodium level. Nephrology is on the case regarding the chronic renal failure and hyponatremia. Restart tube feeds today. Physical therapy. Consult IR for PICC line insertion following that we was switched this patient to oral anticoagulation. We'll continue to follow. Her condition is still critical and the patient is post PEG and trach. Her baseline performance status has been poor and I do not anticipate the patient will be an bruits or any time soon special that she has ventilator for quite a while prior to this current admission. She will need aggressive physical therapy. We'll continue to follow. Critically care evaluation, more than 30 minutes. Time with Patient: Greater than 30
[2018-05-26 16:37] LABS: Glucose,Whole Blood 104 mg/dL (75-99)
[2018-05-26 16:37] LABS: Glucose,Whole Blood 96 mg/dL (75-99)
[2018-05-26 16:38] LABS: Calcium 8.6 mg/dL (8.4-10.2); Potassium 4.5 mmol/L (3.5-5.1)
[2018-05-26 16:44] LABS: Glucose,Whole Blood 102 mg/dL (75-99)
[2018-05-26 20:20] LABS: Glucose,Whole Blood 97 mg/dL (75-99)
[2018-05-27 00:11] LABS: Glucose,Whole Blood 135 mg/dL (75-99)
[2018-05-27] MEDS: INSULIN ASPART 100 UNIT/ML 1 ML 10 ML VIAL SQ SCH ×6 (00:12→20:59)
[2018-05-27] MEDS: IPRATROPIUM-ALBUTEROL 3 ML NEB INHALATION SCH ×6 (03:35→23:43)
[2018-05-27 04:06] LABS: Glucose,Whole Blood 91 mg/dL (75-99)
[2018-05-27] MEDS: SODIUM CHLORIDE 0.9% 1,000 ML IV SCH ×2 (04:37→13:24)
[2018-05-27 04:50] LABS: ABG Base Excess 5.7 mmol/L; ABG HCO3 31 mmol/L (21-25); ABG Oxygen Saturation 98.7 % (94-97); ABG PCO2 51 mmHg (35-45); ABG PH 7.39 (7.35-7.45); ABG PO2 105 mmHg (83-108); ABG TCO2 32 mmol/L (19-24)
[2018-05-27 06:35] LABS: Anisocytosis Slight; Basophils % (A) 0 %; Eosinophils # (A) 0.1 k/uL (0-0.7); Eosinophils % (A) 0 %; HCT 26.4 % (34.0-46.0); HGB 8.4 gm/dL (11.4-16.0); Hypochromasia Moderate; Lymphocytes # (A) 0.8 k/uL (1.0-4.8); Lymphocytes % (A) 5 %; MCH 27.8 pg (25.0-35.0); MCHC 31.7 g/dL (31.0-37.0); MCV 87.8 fL (80.0-100.0); Mean Platelet Volume 8.7; Monocytes % (A) 6 %; Neutrophils # (A) 14.3 k/uL (1.3-7.7); Neutrophils % (A) 88 %; Platelet Count 314 k/uL (150-450); RBC 3.01 m/uL (3.80-5.40); RDW 19.1 % (11.5-15.5); WBC 16.4 k/uL (3.8-10.6)
[2018-05-27 06:48] LABS: Calcium 8.7 mg/dL (8.4-10.2); Magnesium 1.9 mg/dL (1.6-2.3); Potassium 4.4 mmol/L (3.5-5.1)
[2018-05-27 08:14] LABS: Glucose,Whole Blood 111 mg/dL (75-99)
--- NOTE | 2018-05-27 08:19 | XR ---
EXAMINATION TYPE: XR chest 1V portable DATE OF EXAM: 05/27/2018 COMPARISON: Prior chest x-ray 05/26/2018 HISTORY: Abnormal chest x-ray, tube placement TECHNIQUE: Single frontal view of the chest is obtained. FINDINGS: Tracheostomy tube is overlying the tracheal air column. Right subclavian central venous ca theter shows the distal tip overlying the right atrium. Patient is rotated. No evident pneumothorax. There are overlying cardiac leads. There is blunting of the left costophrenic angle. Heart remains en larged. Central vascularity and interstitium are increased. IMPRESSION: There may be some improvement in volume status, interstitium, aeration appears somewhat improved as compared to prior exam. Cardiomegaly.
[2018-05-27] MEDS: CHLORHEXIDINE GLUCONATE 15 ML CUP MUCOUS MEM SCH ×2 (08:44→21:26)
[2018-05-27] MEDS: AMIODARONE 200 MG TAB PO SCH ×2 (09:30→21:26)
[2018-05-27] MEDS: PANTOPRAZOLE 40 MG/10 ML VIAL IV SCH (09:30)
[2018-05-27] MEDS: ASPIRIN 325 MG TAB PO SCH (09:30)
[2018-05-27] MEDS: SODIUM CHLORIDE TAB 1 GM TAB PO SCH ×2 (09:30→21:26)
[2018-05-27] MEDS: FUROSEMIDE 10 MG/ML 2 ML VIAL IV SCH ×2 (09:35→21:26)
--- NOTE | 2018-05-27 09:50 | P.PN ---
Subjective Progress Note Date: 05/27/18 Principal diagnosis: This 67-year-old female is followed up with acute kidney injury secondary to prerenal, congestive heart failure atrial fibrillation. She was reintubated and remains on the vent, has now had tracheostomy and PEG. She is on levo fed but off Diprivan. She had hyponatremia and to correct that we have started on IV Lasix and normal saline combination. She is currently awake and alert on the vent at 50 with an [id number], on AC She follows commands. Her urine output is 11 95 mL, intake is documented at 463 which is incorrect Her creatinine continues to go up slowly, possibly a reflection of vancomycin toxicity and now she is on Bactrim which is an add further risks for renal injury and hyperkalemia She was admitted with acute on chronic hypoxic respiratory failure, with pulmonary edema due to combination of acute diastolic CHF exacerbation and fluid redistribution in the background of chronic renal insufficiency with A. fib with RVR with obstructive lung disease, obesity hypoventilation and chronic hypercarbic respiratory failure; status post endotracheal intubation Objective - Vital Signs Vital signs: Vital Signs Temp 99.2 F 05/27/18 09:00 Pulse 78 05/27/18 09:00 Resp 16 05/27/18 09:00 BP 105/57 05/24/18 16:39 Pulse Ox 100 05/27/18 09:00 Intake & Output 05/26/18 05/27/18 05/27/18 18:59 06:59 18:59 Intake Total 7165.707 7329.605 600 Output Total 1060 1100 115 Balance -29.763 1308.605 485 Weight 121.6 kg 123.8 kg Intake: IV 600 1700 300 Sodium Chloride 0.9% 1, 100 1200 300 000 ml @ 100 mls/hr IV . Q10H [facility] Rx#:[id number] Sulfamethox-Tmp 80-16Mg/ 500 500 ml 160 mg In Dextrose 5% in Water 500 ml @ 250 mls /hr IVPB Q12HR [facility] Rx#: [id number] Intake, IV Titration 240.237 288.605 Amount Heparin Sod,Pork in 0.45% 194.405 271.446 NaCl 25,000 unit In 0.45 % NaCl 1 500ml.bag @ 9.8 UNITS/KG/HR 21.91 mls/hr IV .[id number] [facility] Rx#: [id number] Norepinephrine 16 mg In 45.832 17.159 Sodium Chloride 0.9% 250 ml @ Titrate IV .Q0M [facility] Rx#:[id number] Tube Feeding 160 330 120 Other 30 90 180 Output: Urine 1060 1100 115 Other: Voiding Method Indwelling Catheter Indwelling Catheter ABP, PAP, CO, CI - Last Documented Arterial Blood Pressure 113/57 On examination she is on the vent 50% FiO2 assist control. She is awake alert. She follows commands HEENT exam no JVP neck is supple and no facial asymmetry. Lungs are clear to auscultation fair air entry bilaterally Heart sounds are unremarkable for any murmur rub gallop she is in atrial fibrillation. Abdomen is obese nontender Extremity exam was 2+ edema Neurologically awake alert oriented. She is warm to touch. She is on levo fed - Labs CBC & Chem 7: 05/27/18 04:20 05/27/18 04:20 Labs: Abnormal Lab Results - Last 24 Hours (Table) 05/26/18 05/26/18 05/26/18 Range/Units 10:32 11:51 12:35 WBC (3.8-10.6) k/uL RBC (3.80-5.40) m/uL Hgb (11.4-16.0) gm/dL Hct (34.0-46.0) % RDW (11.5-15.5) % Neutrophils # (1.3-7.7) k/uL Lymphocytes # (1.0-4.8) k/uL APTT 57.2 H (22.0-30.0) sec ABG pCO2 (35-45) mmHg ABG HCO3 (21-25) mmol/L ABG Total CO2 (19-24) mmol/L ABG O2 Saturation (94-97) % Sodium (137-145) mmol/L Chloride (98-107) mmol/L BUN (7-17) mg/dL Creatinine (0.52-1.04) mg/dL POC Glucose (mg/dL) 104 H 102 H (75-99) mg/dL Phosphorus (2.5-4.5) mg/dL 05/26/18 05/27/18 05/27/18 Range/Units 16:00 00:10 00:15 WBC (3.8-10.6) k/uL RBC (3.80-5.40) m/uL Hgb (11.4-16.0) gm/dL Hct (34.0-46.0) % RDW (11.5-15.5) % Neutrophils # (1.3-7.7) k/uL Lymphocytes # (1.0-4.8) k/uL APTT (22.0-30.0) sec ABG pCO2 (35-45) mmHg ABG HCO3 (21-25) mmol/L ABG Total CO2 (19-24) mmol/L ABG O2 Saturation (94-97) % Sodium 125 L 125 L (137-145) mmol/L Chloride 89 L (98-107) mmol/L BUN 51 H (7-17) mg/dL Creatinine 1.80 H (0.52-1.04) mg/dL POC Glucose (mg/dL) 135 H (75-99) mg/dL Phosphorus (2.5-4.5) mg/dL 05/27/18 05/27/18 05/27/18 Range/Units 04:20 04:20 04:20 WBC (3.8-10.6) k/uL RBC (3.80-5.40) m/uL Hgb (11.4-16.0) gm/dL Hct (34.0-46.0) % RDW (11.5-15.5) % Neutrophils # (1.3-7.7) k/uL Lymphocytes # (1.0-4.8) k/uL APTT 39.7 H (22.0-30.0) sec ABG pCO2 (35-45) mmHg ABG HCO3 (21-25) mmol/L ABG Total CO2 (19-24) mmol/L ABG O2 Saturation (94-97) % Sodium 128 L (137-145) mmol/L Chloride 91 L (98-107) mmol/L BUN 49 H (7-17) mg/dL Creatinine 1.90 H (0.52-1.04) mg/dL POC Glucose (mg/dL) (75-99) mg/dL Phosphorus 5.5 H (2.5-4.5) mg/dL 05/27/18 05/27/18 05/27/18 Range/Units 04:20 04:45 08:11 WBC 16.4 H (3.8-10.6) k/uL RBC 3.01 L (3.80-5.40) m/uL Hgb 8.4 L (11.4-16.0) gm/dL Hct 26.4 L (34.0-46.0) % RDW 19.1 H (11.5-15.5) % Neutrophils # 14.3 H (1.3-7.7) k/uL Lymphocytes # 0.8 L (1.0-4.8) k/uL APTT (22.0-30.0) sec ABG pCO2 51 H (35-45) mmHg ABG HCO3 31 H (21-25) mmol/L ABG Total CO2 32 H (19-24) mmol/L ABG O2 Saturation 98.7 H (94-97) % Sodium (137-145) mmol/L Chloride (98-107) mmol/L BUN (7-17) mg/dL Creatinine (0.52-1.04) mg/dL POC Glucose (mg/dL) 111 H (75-99) mg/dL Phosphorus (2.5-4.5) mg/dL Microbiology - Last 24 Hours (Table) 05/24/18 13:00 Blood Culture - Preliminary Blood No Growth after 48 hours 05/24/18 12:30 Blood Culture - Preliminary Blood No Growth after 48 hours 05/24/18 16:00 Gram Stain - Preliminary Sputum Sputum Culture - Preliminary Gram Neg Bacilli Assessment and Plan Assessment: Impression 1. Acute kidney injury with component from cardiorenal syndrome, somewhat fluid overloaded with chest x-ray is suggestive congestive heart failure and edema. 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 Additionally patient is on vancomycin which is added to her ATN, vancomycin levels have been high. Her vancomycin was discontinued 05/22/18, she is on Bactrim. Her creatinine has gone up over the last 2 days slowly from 1.3 > 1.9 2. Baseline creatinine unknown. 3. Atrial fibrillation on amiodrone. Heart rate controlled 4. Moderate edema, Congestive heart failure, chest x-ray seems to be about same , remains on 50% FiO2. Currently on IV fluids + lasix for hyponatremia 5. Hypo-natremia secondary to volume overload, and secondary to acute kidney injury, sodium improved on Lasix and normal saline combination to 128 6. Mild respiratory acidosis pH 7.39, pCO2 is 51 Recommendation 1. Continue IV normal saline 100 mL an hour as well as Lasix 20 milligrams every 12 hours. Watch sodium, intake and output and try to keep it even 2. Avoid nephrotoxic medication including Bactrim ( vancomycin, discontinued 05/22/2018) 3. Monitor labs closely on a daily basis
--- NOTE | 2018-05-27 10:25 | P.PN ---
Subjective Progress Note Date: 05/27/18 Principal diagnosis: Respiratory failure Patient is more awake and communicative today. He is able to answer questions appropriately. Objective - Vital Signs Vital signs: Vital Signs Temp 99.2 F 05/27/18 09:00 Pulse 78 05/27/18 09:00 Resp 16 05/27/18 09:00 BP 105/57 05/24/18 16:39 Pulse Ox 100 05/27/18 09:00 Intake & Output 05/26/18 05/27/18 05/27/18 18:59 06:59 18:59 Intake Total 6207.245 1576.605 600 Output Total 1060 1100 115 Balance -29.763 1308.605 485 Weight 121.6 kg 123.8 kg Intake: IV 600 1700 300 Sodium Chloride 0.9% 1, 100 1200 300 000 ml @ 100 mls/hr IV . Q10H [facility] Rx#:[id number] Sulfamethox-Tmp 80-16Mg/ 500 500 ml 160 mg In Dextrose 5% in Water 500 ml @ 250 mls /hr IVPB Q12HR [facility] Rx#: [id number] Intake, IV Titration 240.237 288.605 Amount Heparin Sod,Pork in 0.45% 194.405 271.446 NaCl 25,000 unit In 0.45 % NaCl 1 500ml.bag @ 9.8 UNITS/KG/HR 21.91 mls/hr IV .[id number] [facility] Rx#: [id number] Norepinephrine 16 mg In 45.832 17.159 Sodium Chloride 0.9% 250 ml @ Titrate IV .Q0M [facility] Rx#:[id number] Tube Feeding 160 330 120 Other 30 90 180 Output: Urine 1060 1100 115 Other: Voiding Method Indwelling Catheter Indwelling Catheter Indwelling Catheter ABP, PAP, CO, CI - Last Documented Arterial Blood Pressure 113/57 - Exam General: Ill Appearing, moderate distress, morbidly obese, appears at stated age Derm: warm, dry, dressing in place over left lower extremity wound Head: atraumatic, normocephalic, symmetric Eyes: EOMI, no lid lag, anicteric sclera Mouth: no lip lesion, mucus membranes moist Neck: Trach in place Cardiovascular: S1S2 reg, no murmur, positive posterior tibial pulse bilateral, Lungs: Coarse breath sounds bilaterally, no rhonchi, no rales , no accessory muscle use, on 10 Abdominal: soft, PEG in place, nontender to palpation, no guarding, organs unable to be palpated Ext: no gross muscle atrophy, 1+ pitting edema, no contractures Neuro: CN II-XI grossly intact, not moving any 4 extremities currently blood per nursing moving all 4 extremities Psych: On vent - Labs CBC & Chem 7: 05/27/18 04:20 05/27/18 04:20 Labs: Abnormal Lab Results - Last 24 Hours (Table) 05/26/18 05/26/18 05/26/18 Range/Units 10:32 11:51 12:35 WBC (3.8-10.6) k/uL RBC (3.80-5.40) m/uL Hgb (11.4-16.0) gm/dL Hct (34.0-46.0) % RDW (11.5-15.5) % Neutrophils # (1.3-7.7) k/uL Lymphocytes # (1.0-4.8) k/uL APTT 57.2 H (22.0-30.0) sec ABG pCO2 (35-45) mmHg ABG HCO3 (21-25) mmol/L ABG Total CO2 (19-24) mmol/L ABG O2 Saturation (94-97) % Sodium (137-145) mmol/L Chloride (98-107) mmol/L BUN (7-17) mg/dL Creatinine (0.52-1.04) mg/dL POC Glucose (mg/dL) 104 H 102 H (75-99) mg/dL Phosphorus (2.5-4.5) mg/dL 05/26/18 05/27/18 05/27/18 Range/Units 16:00 00:10 00:15 WBC (3.8-10.6) k/uL RBC (3.80-5.40) m/uL Hgb (11.4-16.0) gm/dL Hct (34.0-46.0) % RDW (11.5-15.5) % Neutrophils # (1.3-7.7) k/uL Lymphocytes # (1.0-4.8) k/uL APTT (22.0-30.0) sec ABG pCO2 (35-45) mmHg ABG HCO3 (21-25) mmol/L ABG Total CO2 (19-24) mmol/L ABG O2 Saturation (94-97) % Sodium 125 L 125 L (137-145) mmol/L Chloride 89 L (98-107) mmol/L BUN 51 H (7-17) mg/dL Creatinine 1.80 H (0.52-1.04) mg/dL POC Glucose (mg/dL) 135 H (75-99) mg/dL Phosphorus (2.5-4.5) mg/dL 05/27/18 05/27/18 05/27/18 Range/Units 04:20 04:20 04:20 WBC (3.8-10.6) k/uL RBC (3.80-5.40) m/uL Hgb (11.4-16.0) gm/dL Hct (34.0-46.0) % RDW (11.5-15.5) % Neutrophils # (1.3-7.7) k/uL Lymphocytes # (1.0-4.8) k/uL APTT 39.7 H (22.0-30.0) sec ABG pCO2 (35-45) mmHg ABG HCO3 (21-25) mmol/L ABG Total CO2 (19-24) mmol/L ABG O2 Saturation (94-97) % Sodium 128 L (137-145) mmol/L Chloride 91 L (98-107) mmol/L BUN 49 H (7-17) mg/dL Creatinine 1.90 H (0.52-1.04) mg/dL POC Glucose (mg/dL) (75-99) mg/dL Phosphorus 5.5 H (2.5-4.5) mg/dL 05/27/18 05/27/18 05/27/18 Range/Units 04:20 04:45 08:11 WBC 16.4 H (3.8-10.6) k/uL RBC 3.01 L (3.80-5.40) m/uL Hgb 8.4 L (11.4-16.0) gm/dL Hct 26.4 L (34.0-46.0) % RDW 19.1 H (11.5-15.5) % Neutrophils # 14.3 H (1.3-7.7) k/uL Lymphocytes # 0.8 L (1.0-4.8) k/uL APTT (22.0-30.0) sec ABG pCO2 51 H (35-45) mmHg ABG HCO3 31 H (21-25) mmol/L ABG Total CO2 32 H (19-24) mmol/L ABG O2 Saturation 98.7 H (94-97) % Sodium (137-145) mmol/L Chloride (98-107) mmol/L BUN (7-17) mg/dL Creatinine (0.52-1.04) mg/dL POC Glucose (mg/dL) 111 H (75-99) mg/dL Phosphorus (2.5-4.5) mg/dL Microbiology - Last 24 Hours (Table) 05/24/18 13:00 Blood Culture - Preliminary Blood No Growth after 48 hours 05/24/18 12:30 Blood Culture - Preliminary Blood No Growth after 48 hours 05/24/18 16:00 Gram Stain - Preliminary Sputum Sputum Culture - Preliminary Gram Neg Bacilli Assessment and Plan Plan: 12.1 Pneumonia, likely healthcare acquired, growing out stenotrophomonas and earlier grew MRSA -Resume Bactrim which is active against above grown organisms. -Pulmonary and infectious disease following -Pulmonary hygiene -Blood cultures done on 05/24, so far no growth -Sputum cultures done on 05/24 growing gram-negative bacilli: Follow Acute on chronic hypoxic hypercapnic respiratory failure due to obesity hypoventilation syndrome and pneumonia -Vent management per pulmonary critical care Hypertension Likely secondary to above Only 100/ Hyponatremia-hypervolemic -Secondary to acute kidney injury, poor solute intake. Patient was started on normal saline this morning as well as Lasix. -Improving -Nephrology following BASIA on CKD stage III with hyponatremia - nephrology following, renal function plateaued - renal dose medications - avoid additional nephrotoxic agents Anemia, worsening with iron deficiency - status post 2 units of packed red blood cells transfusion in addition to 3 doses of IV iron - monitor for signs of bleeding Acute systolic CHF exacerbation with ejection fraction 30-35% -IV Lasix -Ideally will need to be on an ALEJA inhibitor but cannot tolerate secondary to renal failure and hypotension -Ideally beta carola but contraindicated due to hypotension P. A. fib with RVR -On oral amiodarone - on heparin gtt Morbid obesity BMI 42 - structured outpatient weight loss Stage III decubitus ulcers with possible mild cellulitis -ID recs - off load - barrier cream COPD without exacerbation - pulm following - bronchdilators Acute on chronic debility -Physical therapy evaluation 1 respiratory status stable Resolved: septic shock A fib with RVR Subacute diarrhea Hypoglycemia, resolved DVT prophylaxis: heparin gtt Discussed with: nursing Anticipated discharge: 3-[address]: Likely will need SNF A total of 35 minutes was spent on the care of this complex patient more than 50 % of the time was spent in counseling and care coordination.
[2018-05-27] MEDS: DEXTROSE 5% IVPB SCH ×4 (10:50→21:26)
[2018-05-27] MEDS: SULFAMETHOX TMP IVPB SCH ×4 (10:50→21:26)
[2018-05-27] MEDS: WATER IVPB SCH ×4 (10:50→21:26)
[2018-05-27 12:06] LABS: Glucose,Whole Blood 150 mg/dL (75-99)
[2018-05-27] MEDS: POLYETHYLENE GLYCOL 3350 17 GM POWD.PACK PO SCH (12:35)
[2018-05-27] MEDS ORDERED: LIDOCAINE 1% INJ 10MG/ML (20 ML MDV) SQ ONE (12:58)
--- NOTE | 2018-05-27 13:52 | IR ---
PICC LINE PLACEMENT: HISTORY: Infection requiring long-term antibiotic therapy PROCEDURE: Ultrasound guidance of PICC line placement. QUILT STUFFER: Dr. Samuels. COMPLICATIONS: None ANESTHESIA: 1. 1% Lidocaine locally. FINDINGS/TECHNIQUE: The procedure was explained to the patient. The risks, complications, benefits and alternatives were discussed and any questions were answered. Informed consent was obtained. The patient was placed supine on the fluoroscopic table and prepped and draped in the usual sterile fas ion. Utilizing a 21 gauge needle and sonographic guidance, access in the left basilic vein was achi eved and there is placement of a 0.018 guidewire. The vein is patent. A 5-F. sheath was placed over the guidewire. The guidewire and dilator were removed and a 5-F. Double lumen PICC line was placed through the sheath with the chest x-ray confirming the tip at the level of the SVC. The sheath was r emoved, the catheter was flushed and sutured into position. The patient was stable throughout the pr ocedure and remained stable upon discharge from the Department of Radiology. The vein puncture was patent under ultrasound. A naqvi scale image was obtained to document patency of the vein punctured. All elements of the maximal barrier technique were utilized. IMPRESSION: 1. Successful PICC line placement under ultrasound performed bedside within the ICU.
--- NOTE | 2018-05-27 14:08 | XR ---
EXAMINATION TYPE: XR chest 1V portable DATE OF EXAM: 05/27/2018 COMPARISON: Prior chest 05/27/2018 HISTORY: Status post PICC line placement TECHNIQUE: Single frontal view of the chest is obtained. FINDINGS: There has been interval placement of a left-sided PICC line, distal tip is overlying the s uperior vena cava. No evident pneumothorax. No significant interval change. IMPRESSION: No evident complication status post PICC line placement.
[2018-05-27 15:04] VITALS: BMI 45.3
--- NOTE | 2018-05-27 15:34 | P.PN ---
Subjective Progress Note Date: 05/27/18 On today's evaluation of 05/24/2018, the patient is intubated on a mechanical ventilator. She is sedated with Diprivan. Earlier this morning she was on 20 mics of the prevent and she was able to arouse open up her eyes and moving extremities. She is on a mechanical ventilator assist control mode and this morning she assist control of 20 with a tidal volume of 400 and FiO2 of 40% and a PEEP of 5. The chest x-ray showing a left lower lobe consolidation. The blood gases showing a pH of 7.4 with a pCO2 of 59 and pO2 of 103 this was on FiO2 of 40%. The patient has been intubated. The patient has no significant orotracheal secretions. Sputum samples were sent is showing gram-negative bacillus which turns out to be a stenotrophomonas and insistent to IV Fortaz. I 'm assuming this to be also resistant to cefepime. The patient was effective in the past with MRSA and current antibiotic coverage including a combination of cefepime and Zyvox. Hemodynamically, the patient is hypotensive. The patient is currently on pressors and the patient is on 13 mics of norepinephrine infusion for hemodynamic support. The white cell count went as high as 31.7 and currently is down to 24.3. The patient was found to have a low hemoglobin this morning at 6.9. No evidence of any acute bleeding. She'll be given a total of 2 units of packed RBCs. Cardiothoracic surgery has been consulted in consultation for PEG and trach within next 24 hours. Meanwhile, the patient is tolerating her tube feeds. The renal function is stable and continues to improve. She is producing adequate amount of urine output. Her net fluid balance is positive over the past 24 hours. She remains in atrial fibrillation. The patient remains in a amiodarone drip. The patient is also IV heparin. Echocardiogram at shown impairment LV function with an ejection fraction of 30-35% and right ventricular being mildly enlarged and moderate degree of pulmonary hypertension. On today's evaluation of 05/25/2018, the patient remains intubated on a mechanical ventilator. As mentioned yesterday stenotrophomonas was cultured from the patient's lungs and without the second source of sepsis was a stenotrophomonas pneumonia. As such the patient was started on Bactrim and restless and this was discontinued. This was done in consultation with infectious disease. This morning she is afebrile. Her white cell count has dropped down to 18. She was weaned off the pressors and currently she is off pressors. The patient is also given a total of 2 units of packed RBC and hemoglobin is up to 8.6. The plan for today is to proceed with a PEG and trach. She remains on assist control mode of ventilation. She is on assist control of 20 with tidal volume of 400 and FiO2 of 40% and PEEP of 5. Morning blood gases showed a pH of 7.39 with a pCO2 of 55 and pO2 11. Chest x-ray shows stable consolidation of left lower lung. The sodium levels in the decline in the sodium level is down to 126 with a bicarb level of 32 and chloride level of 88. The patient will be started on normal saline infusion. The patient was receiving tube feeds which is currently on hold pending packed trach. The patient also is off IV heparin for her PEG and trach. This will be done within next few hours by Dr. Bravo. Otherwise she is still on low grade sedation and she is easily arousable. Echocardiogram at shown an impairment in the Function with an ejection fraction of 3035% with moderate degree of pulmonary hypertension. On 05/26/2018, the patient is post PEG and trach insertion. The procedure was done successfully and the patient was gradually weaned off the Diprivan and currently she is awake and alert and following commands and answering questions. She is moving all 4 extremities although there is significant motor weakness lower extremity is bilaterally. She is able to raise her arms against gravity. She is on a mechanical ventilator assist control mode and the vent setting are essentially same with an assist-control mode at the rate of 20 with a tidal volume of 400 and FiO2 of 40% and PEEP of 5. Chest x-ray shows left lower lobe consolidation. The blood gases from today showed a pH of 7.4 with a pCO2 of 51 and pO2 of 85. No significant secretions from his tracheostomy tube. The patient is breathing comfortably and she is synchronous with the mechanical ventilator. The fact he was also and then the patient be started on enteral feeding for nutritional support. Also, the patient is being monitored regarding her renal failure. Note that the patient is on Bactrim for stenotrophomonas and this was initiated after consultation with infectious disease. The patient's renal function is impaired yet it is stable for now and creatinine today is at 1.6, stable. Aggressive the electrolytes show a component of hyponatremia. The sodium was 129 and it gradually dropped over the past 3 days to 128 and 125 and 124. The patient was seen by nephrology. The patient was given normal saline infusion following that she was given Lasix and in addition to that she was given a tablet of Tolvaptan, 15mg which failed to improve her sodium level. At this point in time the patient is on sodium chloride tablets 1 g twice a day. She is also being given Lasix 20 mg every 12 hours pH is also on norepinephrine infusion for hemodynamic support. The patient is currently on 3 mics of norepinephrine infusion. She is also in atrial fibrillation with a controlled rate. She is on amiodarone, milligrams by mouth twice a day and IV heparin his back. No other significant events overnight otherwise. As mentioned earlier the patient's ejection fraction is around 30-35% consistent with CHF in addition to moderate degree of pulmonary hypertension. On 05/27/2018, the patient is awake and alert. She is post PEG and trach insertion for respiratory failure and failure to wean. She has a tracheostomy tube in place. She is an assist-control mode of ventilation. Earlier this morning she was assist control of 20 with a tidal volume of 400 with an FiO2 of 40% and a PEEP of 5. Chest x-ray showed further improvement in the aeration and infiltration of the left lower lobe. The blood gases showed a pH of 7.39 with a pCO2 of 51 and pO2 of 105 and this was on FiO2 of 40% indicating improvement in the patient's oxygenation. Based on this, I checked weaning parameters which do not to be very good and put the patient a pressure support of 7 and PEEP of 5 and she was able to tolerate this mode that he well without any signs of respiratory distress. Meanwhile, the patient is still on Bactrim. Renal function remains impaired yet stable with a creatinine of 1.9. Sodium level is improving. 11/05/2027. The patient on IV Lasix. The patient is still on 3-5 mics of norepinephrine infusion for blood pressure control. No fever. No chills. Tolerating the tube feeds. She is quite weak and she is able to move upper extremities however her lower extremities is extremely weak. The patient remains on IV heparin. She remains in atrial fibrillation. Rate is controlled for now. Objective - Vital Signs Vital signs: Vital Signs Temp 99.2 F 05/27/18 09:00 Pulse 86 05/27/18 15:00 Resp 12 05/27/18 15:00 BP 81/56 05/27/18 12:00 Pulse Ox 98 05/27/18 15:00 Intake & Output 05/26/18 05/27/18 05/27/18 18:59 06:59 18:59 Intake Total 0829.714 5550.605 1850.317 Output Total 1060 1100 320 Balance -29.763 2449.176 4967.317 Weight 121.6 kg 123.8 kg 123.8 kg Intake: IV 600 1700 1500 Sodium Chloride 0.9% 1, 100 1200 900 000 ml @ 100 mls/hr IV . Q10H [facility] Rx#:[id number] Sulfamethox-Tmp 80-16Mg/ 500 500 600 ml 160 mg In Dextrose 5% in Water 500 ml @ 250 mls /hr IVPB Q12HR [facility] Rx#: [id number] Intake, IV Titration 240.237 288.605 50.317 Amount Heparin Sod,Pork in 0.45% 194.405 271.446 NaCl 25,000 unit In 0.45 % NaCl 1 500ml.bag @ 9.8 UNITS/KG/HR 21.91 mls/hr IV .[id number] [facility] Rx#: [id number] Norepinephrine 16 mg In 45.832 17.159 50.317 Sodium Chloride 0.9% 250 ml @ Titrate IV .Q0M [facility] Rx#:[id number] Tube Feeding 160 330 120 Other 30 90 180 Output: Urine 1060 1100 320 Other: Voiding Method Indwelling Catheter Indwelling Catheter Indwelling Catheter ABP, PAP, CO, CI - Last Documented Arterial Blood Pressure 93/46 - Exam Gen. appearance obese, comfortable, awake and alert and the patient is a tracheostomy tube in place. The tracheostomy site is dry clean and intact. Head exam was generally normal. There was no scleral icterus or corneal arcus. Mucous membranes were moist. Neck was supple and without jugular venous distension, thyromegaly, or carotid bruits. Carotids were easily palpable bilaterally. There was no adenopathy. The patient has a right IJ triple-lumen catheter in place. Lungs sounds are diminished bilaterally along with some few scattered external wheezes heard throughout the lung loyd. Breath sounds are overall diminished. Heart sounds are irregular S1-S2, no cervical murmurs appreciated. Monitor the current heave or thrill. Abdomen is obese soft nontender. Organs cannot be accurately palpated. No direct tenderness. No rebound tenderness. No guarding. Extremities revealed +1 pitting edema and there is no cyanosis or clubbing at this point. No evidence of any acute cellulitis although there is some erythema in the left lower extremity. The PEG tube site is clean and the patient has no significant abdominal tenderness erythema or drainage around the tube. Skin shows a stage II small wounds i the back area. No open wounds or sores. No evidence of any cellulitis. Neurologically patient is off sedation awake and following commands and answering questions appropriately. She can follow commands easily. She has significant motor weakness lower extremities bilaterally and she is able to raise her arms against gravity with the motor function of 3 out of 5 in the upper extremities bilaterally. - Labs CBC & Chem 7: 05/27/18 04:20 05/27/18 04:20 Labs: Abnormal Lab Results - Last 24 Hours (Table) 05/26/18 05/26/18 05/26/18 Range/Units 10:32 11:51 16:00 WBC (3.8-10.6) k/uL RBC (3.80-5.40) m/uL Hgb (11.4-16.0) gm/dL Hct (34.0-46.0) % RDW (11.5-15.5) % Neutrophils # (1.3-7.7) k/uL Lymphocytes # (1.0-4.8) k/uL APTT (22.0-30.0) sec ABG pCO2 (35-45) mmHg ABG HCO3 (21-25) mmol/L ABG Total CO2 (19-24) mmol/L ABG O2 Saturation (94-97) % Sodium 125 L (137-145) mmol/L Chloride 89 L (98-107) mmol/L BUN 51 H (7-17) mg/dL Creatinine 1.80 H (0.52-1.04) mg/dL POC Glucose (mg/dL) 104 H 102 H (75-99) mg/dL Phosphorus (2.5-4.5) mg/dL 05/27/18 05/27/18 05/27/18 Range/Units 00:10 00:15 04:20 WBC (3.8-10.6) k/uL RBC (3.80-5.40) m/uL Hgb (11.4-16.0) gm/dL Hct (34.0-46.0) % RDW (11.5-15.5) % Neutrophils # (1.3-7.7) k/uL Lymphocytes # (1.0-4.8) k/uL APTT (22.0-30.0) sec ABG pCO2 (35-45) mmHg ABG HCO3 (21-25) mmol/L ABG Total CO2 (19-24) mmol/L ABG O2 Saturation (94-97) % Sodium 125 L (137-145) mmol/L Chloride (98-107) mmol/L BUN (7-17) mg/dL Creatinine (0.52-1.04) mg/dL POC Glucose (mg/dL) 135 H (75-99) mg/dL Phosphorus 5.5 H (2.5-4.5) mg/dL 05/27/18 05/27/18 05/27/18 Range/Units 04:20 04:20 04:20 WBC 16.4 H (3.8-10.6) k/uL RBC 3.01 L (3.80-5.40) m/uL Hgb 8.4 L (11.4-16.0) gm/dL Hct 26.4 L (34.0-46.0) % RDW 19.1 H (11.5-15.5) % Neutrophils # 14.3 H (1.3-7.7) k/uL Lymphocytes # 0.8 L (1.0-4.8) k/uL APTT 39.7 H (22.0-30.0) sec ABG pCO2 (35-45) mmHg ABG HCO3 (21-25) mmol/L ABG Total CO2 (19-24) mmol/L ABG O2 Saturation (94-97) % Sodium 128 L (137-145) mmol/L Chloride 91 L (98-107) mmol/L BUN 49 H (7-17) mg/dL Creatinine 1.90 H (0.52-1.04) mg/dL POC Glucose (mg/dL) (75-99) mg/dL Phosphorus (2.5-4.5) mg/dL 05/27/18 05/27/18 05/27/18 Range/Units 04:45 08:11 12:05 WBC (3.8-10.6) k/uL RBC (3.80-5.40) m/uL Hgb (11.4-16.0) gm/dL Hct (34.0-46.0) % RDW (11.5-15.5) % Neutrophils # (1.3-7.7) k/uL Lymphocytes # (1.0-4.8) k/uL APTT (22.0-30.0) sec ABG pCO2 51 H (35-45) mmHg ABG HCO3 31 H (21-25) mmol/L ABG Total CO2 32 H (19-24) mmol/L ABG O2 Saturation 98.7 H (94-97) % Sodium (137-145) mmol/L Chloride (98-107) mmol/L BUN (7-17) mg/dL Creatinine (0.52-1.04) mg/dL POC Glucose (mg/dL) 111 H 150 H (75-99) mg/dL Phosphorus (2.5-4.5) mg/dL 05/27/18 Range/Units 13:30 WBC (3.8-10.6) k/uL RBC (3.80-5.40) m/uL Hgb (11.4-16.0) gm/dL Hct (34.0-46.0) % RDW (11.5-15.5) % Neutrophils # (1.3-7.7) k/uL Lymphocytes # (1.0-4.8) k/uL APTT 48.6 H (22.0-30.0) sec ABG pCO2 (35-45) mmHg ABG HCO3 (21-25) mmol/L ABG Total CO2 (19-24) mmol/L ABG O2 Saturation (94-97) % Sodium (137-145) mmol/L Chloride (98-107) mmol/L BUN (7-17) mg/dL Creatinine (0.52-1.04) mg/dL POC Glucose (mg/dL) (75-99) mg/dL Phosphorus (2.5-4.5) mg/dL Microbiology - Last 24 Hours (Table) 05/24/18 13:00 Blood Culture - Preliminary Blood No Growth after 72 hours 05/24/18 12:30 Blood Culture - Preliminary Blood No Growth after 72 hours 05/24/18 16:00 Gram Stain - Preliminary Sputum Sputum Culture - Preliminary Gram Neg Bacilli Assessment and Plan Plan: Assessment 1 acute on top of chronic hypoxic and hypercapnic respiratory failure. Patient initially presented with a MRSA left lower lobe pneumonia. Most recent sputum analysis showing stenotrophomonas and the patient failed initial extubation the patient is currently post-tracheostomy tube insertion. This morning, the patient was an assist-control mode of ventilation. I switch her to a pressure support mode with a pressure support of 7 and a PEEP of 5. She demonstrated excellent tolerability to this current mode of ventilation. Her weaning parameters are also good. Chest x-ray shows improvement in the aeration and the left lower lobe pulmonary consolidation. 2 MRSA pneumonia of the left lower lobe with subsequent gross with stenotrophomonas. Currently on Bactrim covering both MRSA and stenotrophomonas. Careful attention to the renal function specially the patient has a component of chronic renal failure. The creatinine remains stable for now and the patient is nonoliguric. 3 acute hypotension and the patient is looking more septic as the patient is was resuscitated and the patient is currently pressor dependent with leukocytosis a new microorganism in her lungs/stenotrophomonas. In addition, the patient has an ejection fraction of 30-35%. The patient is still requiring low-dose pressors and currently she is somewhat between 3 and 5 mics of norepinephrine infusion for blood pressure control. 4 CHF with an ejection fraction of 30-35% and moderate degree of pulmonary hypertension. The patient has obvious systolic dysfunction 5 chronic kidney failure with stage III kidney disease and an acute kidney injury on top of chronic renal failure, likely secondary to hypotension, cardiorenal factors versus sepsis. Renal function is stable and the creatinine is at 1.9. 6 stage III chronic decubitus ulceration without evidence of an acute cellulitis 7 morbid obesity with a BMI 41.0 8 chronic atrial fibrillation and the rate is controlled. The patient is currently on oral amiodarone and IV heparin. 9 coronary artery disease 10 recent hospitalization for diarrhea/C. diff colitis and the stool analysis was negative and the patient completed the course of deficit on outpatient basis 11 hypertension 12 degenerative arthritis and sciatica and chronic shoulder and back pain and knee pain and the patient has been wheelchair bound 13 COPD 14 chronic anemia , posttransfusion with 2 units of packed RBC and hemoglobin is up to 8.4 15 hypochloremic hyponatremia, being managed by nephrology. Treatment offered for hyponatremia was noted and the patient is still having a low sodium of 128 Plan We'll continue pressure support of 7 and a PEEP of 5 throughout the day and put the patient on assist control volume cycle mode of ventilation. We'll make consider trach collar tomorrow if the patient continues to be hemodynamically stable. Meanwhile, continue the Bactrim. Monitor renal function. Check serum cortisol level is baseline. Wean off pressors if possible to maintain a mean arterial pressure above 65. I'm hoping that we should be able to that on the norepinephrine infusion and discontinued within next 24-48 hours. The patient is tolerating her tube feeds. The patient will have a PICC line today and triple lumen catheter will be removed. Following that I can switch this patient to long-term and to coagulation valving machine operator and stopped IV heparin. White cell count is gradually improving is down to 16.4. Lovastatin is stable. Function is stable. Mentally she is awake and alert. She is off sedation. She is a candidate for select specialty at a later stage. Critically care evaluation more than 30 minutes. Time with Patient: Greater than 30
[2018-05-27 16:00] LABS: Glucose,Whole Blood 87 mg/dL (75-99)
[2018-05-27] MEDS: HEPARIN SOD,PORK IN 0.45% NACL 25,000 UNIT in 0.45% NACL 1 500ML.BAG IV SCH (16:15)
[2018-05-27 19:55] LABS: Glucose,Whole Blood 123 mg/dL (75-99)
[2018-05-27] MEDS: ACETAMINOPHEN TAB 325 MG TAB PO PRN (21:26)
--- NOTE | 2018-05-27 22:34 | P.PN ---
Subjective Progress Note Date: 05/27/18 This is a 67-year-old morbidly obese female that came into the emergency center yesterday with shortness of breath and lethargy. Patient apparently has been bedbound for the past 3 weeks due to shortness of breath. Patient has not been eating very much and also had diarrhea. She was treated outpatient with deficit and completed the course and was then placed on antidiarrheal agent. She was admitted 2 months ago at [facility] for heart failure. She required intubation in the emergency center. She was also found to have atrial fibrillation with RVR is currently on amiodarone drip. Cardiology is following. Nephrology is also following for acute kidney injury with BUN 44 and creatinine 2.59. Patient presented with leukocytosis but afebrile. Troponins were mildly elevated at 0.046, 0.049, 0.047. Albumin 2.6, TSH 1.550. C. difficile toxin was negative. Urinalysis was cloudy, leukoesterase large, WBC 33 and bacteria rare. Blood issuing no growth at 24 hours and urine culture is in progress. Patient is currently on norepinephrine, Lasix drip, amiodarone drip, heparin drip and sedation. He guarding antibiotics patient is on Azactam and vancomycin. Initial x-ray shows mild cardiomegaly and interstitial prominence. Correlate for heart failure and mild pulmonary vascular congestion. Small to moderate left and trace left pleural effusions with adjacent atelectasis and/or consolidation. Repeat chest x-ray this morning reveals improved aeration of the right upper lung. Haziness of the right hemidiaphragm likely represents a new trace right pleural effusion. Persistent retrocardiac obesity is favored to represent a small pleural effusion and left basilar atelectasis. Overall stable lines and tubes. Echocardiogram reveals EF of 3035%, moderate concentric left ventricular hypertrophy, elderly severely dilated, mild mitral regurgitation, moderate tricuspid regurgitation, moderate pulmonary hypertension. Regarding wounds, patient has stage II decubitus ulcer on the right buttocks, left hip and the shear-type injury to the right hip area there is mild cellulitis to the left pretibial area. Patient's bowel movements are currently soft. 05/14/2018 patient remains intubated sedated and mechanically ventilated but is now with a marked reduction in the amount of vasopressor therapy. Her sedation holiday earlier today was successful. However she had significant secretions on bronchoscopy was performed in large amounts of purulent secretions were suctioned. She is comfortable at this time. 05/15/2018. The patient is now extubated. We'll likely be on BiPAP overnight. Vasopressor therapy has been weaned and has almost completely been discontinued. 05/17/2018 patient extubated but remains BiPAP dependent. She is arousable but not highly interactive. Is complaining of some itchy skin other than this has no improvement. Patient remains extubated at 05/18/2018 but is BiPAP dependent however delivered oxygen level is now down to 24% and she is comfortable. Her lower extremity edema is improving. TPN is started no plans for tracheostomy or PEG tube 05/21/2018 patient has had a bit of a better day. She was on BiPAP for over 5 hours and tolerated it relatively well. His follow study was performed showing evidence the ability to swallow and she was given some medications orally with some applesauce. Although she is still quite short of breath doing well with BiPAP this evening without other new acute complaints. 05/24/2018 reveals the patient's significant decline over the weekend. Respiratory status acutely worsened requiring intubation. The nursing staff relate that there may not be a change in status and that the family may want tracheostomy and PEG tube placement. The ICU team is trying to have a family meeting to ensure meeting of the patient's wishes. 05/27/2018 doing well s/p trach and peg. Awake and tolerating therapy well.Levophed now on hold. Objective - Vital Signs Vital signs: Vital Signs Temp 98.9 F 05/27/18 17:00 Pulse 89 05/27/18 21:00 Resp 20 05/27/18 21:00 BP 81/56 05/27/18 12:00 Pulse Ox 100 05/27/18 21:00 Intake & Output 05/27/18 05/27/18 05/28/18 06:59 18:59 06:59 Intake Total 2408.605 2378.871 456.072 Output Total 1100 455 112 Balance 7613.966 8176.871 344.072 Weight 123.8 kg 123.8 kg Intake: IV 1700 1800 300 Sodium Chloride 0.9% 1, 1200 1200 300 000 ml @ 100 mls/hr IV . Q10H [facility] Rx#:[id number] Sulfamethox-Tmp 80-16Mg/ 500 600 ml 160 mg In Dextrose 5% in Water 500 ml @ 250 mls /hr IVPB Q12HR [facility] Rx#: [id number] Intake, IV Titration 288.605 278.871 116.072 Amount Heparin Sod,Pork in 0.45% 271.446 228.554 116.072 NaCl 25,000 unit In 0.45 % NaCl 1 500ml.bag @ 9.8 UNITS/KG/HR 21.91 mls/hr IV .[id number] [facility] Rx#: [id number] Norepinephrine 16 mg In 17.159 50.317 Sodium Chloride 0.9% 250 ml @ Titrate IV .Q0M [facility] Rx#:[id number] Tube Feeding 330 120 40 Other 90 180 Output: Urine 1100 455 112 Other: Voiding Method Indwelling Catheter Indwelling Catheter ABP, PAP, CO, CI - Last Documented Arterial Blood Pressure 101/48 - Exam Gen: This is a morbidly obese 67-year-old female. she is now status post tracheostomy, receiving tube feeds are via PEG tube. sedated and comfortable HEENT: Head is atraumatic, normocephalic. Pupils equal, round. Sclerae is anicteric. Conjunctiva slightly pale. Mucous members of the mouth are dry. Oral gastric tube andtrach in place. NECK: Supple. No JVD. No lymphadenopathy. No thyromegaly. LUNGS:symmetrical air entry is noted. Diminished breath sounds the bilateral bases, expiratory wheezes are scattered HEART: Irregularly irregular rate and rhythm. No murmur. ABDOMEN: Currently obese. Soft. Bowel sounds are present. No masses. No tenderness. No significant redness under her abdominal fold or breast. InterDry and nystatin powder in place. peg in place EXTREMITIES: persistent bilateral pedal edema. Waffle-type boots in place. facial erythema resolving NEUROLOGICAL:mechanically ventilated and sedated, but does interact. - Labs CBC & Chem 7: 05/27/18 04:20 05/27/18 04:20 Labs: Abnormal Lab Results - Last 24 Hours (Table) 05/27/18 05/27/18 05/27/18 Range/Units 00:10 00:15 04:20 WBC (3.8-10.6) k/uL RBC (3.80-5.40) m/uL Hgb (11.4-16.0) gm/dL Hct (34.0-46.0) % RDW (11.5-15.5) % Neutrophils # (1.3-7.7) k/uL Lymphocytes # (1.0-4.8) k/uL APTT (22.0-30.0) sec ABG pCO2 (35-45) mmHg ABG HCO3 (21-25) mmol/L ABG Total CO2 (19-24) mmol/L ABG O2 Saturation (94-97) % Sodium 125 L (137-145) mmol/L Chloride (98-107) mmol/L BUN (7-17) mg/dL Creatinine (0.52-1.04) mg/dL POC Glucose (mg/dL) 135 H (75-99) mg/dL Phosphorus 5.5 H (2.5-4.5) mg/dL 05/27/18 05/27/18 05/27/18 Range/Units 04:20 04:20 04:20 WBC 16.4 H (3.8-10.6) k/uL RBC 3.01 L (3.80-5.40) m/uL Hgb 8.4 L (11.4-16.0) gm/dL Hct 26.4 L (34.0-46.0) % RDW 19.1 H (11.5-15.5) % Neutrophils # 14.3 H (1.3-7.7) k/uL Lymphocytes # 0.8 L (1.0-4.8) k/uL APTT 39.7 H (22.0-30.0) sec ABG pCO2 (35-45) mmHg ABG HCO3 (21-25) mmol/L ABG Total CO2 (19-24) mmol/L ABG O2 Saturation (94-97) % Sodium 128 L (137-145) mmol/L Chloride 91 L (98-107) mmol/L BUN 49 H (7-17) mg/dL Creatinine 1.90 H (0.52-1.04) mg/dL POC Glucose (mg/dL) (75-99) mg/dL Phosphorus (2.5-4.5) mg/dL 05/27/18 05/27/18 05/27/18 Range/Units 04:45 08:11 12:05 WBC (3.8-10.6) k/uL RBC (3.80-5.40) m/uL Hgb (11.4-16.0) gm/dL Hct (34.0-46.0) % RDW (11.5-15.5) % Neutrophils # (1.3-7.7) k/uL Lymphocytes # (1.0-4.8) k/uL APTT (22.0-30.0) sec ABG pCO2 51 H (35-45) mmHg ABG HCO3 31 H (21-25) mmol/L ABG Total CO2 32 H (19-24) mmol/L ABG O2 Saturation 98.7 H (94-97) % Sodium (137-145) mmol/L Chloride (98-107) mmol/L BUN (7-17) mg/dL Creatinine (0.52-1.04) mg/dL POC Glucose (mg/dL) 111 H 150 H (75-99) mg/dL Phosphorus (2.5-4.5) mg/dL 05/27/18 05/27/18 Range/Units 13:30 19:53 WBC (3.8-10.6) k/uL RBC (3.80-5.40) m/uL Hgb (11.4-16.0) gm/dL Hct (34.0-46.0) % RDW (11.5-15.5) % Neutrophils # (1.3-7.7) k/uL Lymphocytes # (1.0-4.8) k/uL APTT 48.6 H (22.0-30.0) sec ABG pCO2 (35-45) mmHg ABG HCO3 (21-25) mmol/L ABG Total CO2 (19-24) mmol/L ABG O2 Saturation (94-97) % Sodium (137-145) mmol/L Chloride (98-107) mmol/L BUN (7-17) mg/dL Creatinine (0.52-1.04) mg/dL POC Glucose (mg/dL) 123 H (75-99) mg/dL Phosphorus (2.5-4.5) mg/dL Microbiology - Last 24 Hours (Table) 05/24/18 16:00 Gram Stain - Final Sputum Sputum Culture - Final Stenotrophomonas maltophilia 05/24/18 13:00 Blood Culture - Preliminary Blood No Growth after 72 hours 05/24/18 12:30 Blood Culture - Preliminary Blood No Growth after 72 hours Laboratory Results WBC 16.4 k/uL (3.8-10.6) H 05/27/18 04:20 RBC 3.01 m/uL (3.80-5.40) L 05/27/18 04:20 Hgb 8.4 gm/dL (11.4-16.0) L 05/27/18 04:20 Hct 26.4 % (34.0-46.0) L 05/27/18 04:20 MCV 87.8 fL (80.0-100.0) 05/27/18 04:20 MCH 27.8 pg (25.0-35.0) 05/27/18 04:20 MCHC 31.7 g/dL (31.0-37.0) 05/27/18 04:20 RDW 19.1 % (11.5-15.5) H 05/27/18 04:20 Plt Count 314 k/uL (150-450) 05/27/18 04:20 Neutrophils % 88 % 05/27/18 04:20 Neutrophils % (Manual) 82 % 05/23/18 04:26 Band Neutrophils % 4 % 05/23/18 04:26 Lymphocytes % 5 % 05/27/18 04:20 Lymphocytes % (Manual) 6 % 05/23/18 04:26 Monocytes % 6 % 05/27/18 04:20 Monocytes % (Manual) 6 % 05/23/18 04:26 Eosinophils % 0 % 05/27/18 04:20 Eosinophils % (Manual) 1 % 05/23/18 04:26 Basophils % 0 % 05/27/18 04:20 Basophils % (Manual) 1 % 05/23/18 04:26 Metamyelocytes % 2 % 05/23/18 04:26 Myelocytes % 6 % 05/22/18 06:05 Neutrophils # 14.3 k/uL (1.3-7.7) H 05/27/18 04:20 Neutrophils # (Manual) 27.20 k/uL (1.3-7.7) H 05/23/18 04:26 Lymphocytes # 0.8 k/uL (1.0-4.8) L 05/27/18 04:20 Lymphocytes # (Manual) 1.90 k/uL (1.0-4.8) 05/23/18 04:26 Monocytes # 1.0 k/uL (0-1.0) 05/27/18 04:20 Monocytes # (Manual) 1.90 k/uL (0-1.0) H 05/23/18 04:26 Eosinophils # 0.1 k/uL (0-0.7) 05/27/18 04:20 Eosinophils # (Manual) 0.32 k/uL (0-0.7) 05/23/18 04:26 Basophils # 0.0 k/uL (0-0.2) 05/27/18 04:20 Basophils # (Manual) 0.32 k/uL (0-0.2) H 05/23/18 04:26 Metamyelocytes # (Man) 0.63 k/uL (0) H 05/23/18 04:26 Myelocytes # (Manual) 1.78 k/uL (0) H 05/22/18 06:05 Nucleated RBCs 0 /100 WBC (0-0) 05/23/18 04:26 Manual Slide Review Performed 05/23/18 04:26 Large Platelets Present 05/23/18 04:26 Polychromasia Present 05/21/18 04:51 Hypochromasia Moderate 05/27/18 04:20 Poikilocytosis Slight 05/26/18 04:15 Anisocytosis Slight 05/27/18 04:20 PT 9.7 sec (9.0-12.0) 05/26/18 12:35 INR 1.0 (<1.2) 05/26/18 12:35 APTT 48.6 sec (22.0-30.0) H 05/27/18 13:30 D-Dimer 0.57 mg/L FEU (<0.60) 05/11/18 15:00 Sample Site kalie 05/27/18 04:45 ABG pH 7.39 (7.35-7.45) 05/27/18 04:45 ABG pCO2 51 mmHg (35-45) H 05/27/18 04:45 ABG pO2 105 mmHg (83-108) 05/27/18 04:45 ABG HCO3 31 mmol/L (21-25) H 05/27/18 04:45 ABG Total CO2 32 mmol/L (19-24) H 05/27/18 04:45 ABG O2 Saturation 98.7 % (94-97) H 05/27/18 04:45 ABG Base Excess 5.7 mmol/L 05/27/18 04:45 Juancarlso Test Yes 05/27/18 04:45 FiO2 40 % 05/27/18 04:45 Sodium 128 mmol/L (137-145) L 05/27/18 04:20 Potassium 4.4 mmol/L (3.5-5.1) 05/27/18 04:20 Chloride 91 mmol/L (98-107) L 05/27/18 04:20 Carbon Dioxide 28 mmol/L (22-30) 05/27/18 04:20 Anion Gap 9 mmol/L 05/27/18 04:20 BUN 49 mg/dL (7-17) H 05/27/18 04:20 Creatinine 1.90 mg/dL (0.52-1.04) H 05/27/18 04:20 Est GFR (CKD-EPI)AfAm 32 (>60 ml/min/1.73 sqM) 05/27/18 04:20 Est GFR (CKD-EPI)NonAf 27 (>60 ml/min/1.73 sqM) 05/27/18 04:20 Glucose 82 mg/dL (74-99) 05/27/18 04:20 POC Glucose (mg/dL) 123 mg/dL (75-99) H 05/27/18 19:53 POC Glu Stencil Printer ID Ansley Irizarry 05/27/18 19:53 Osmolality 278 mosm/kg (280-301) L 05/25/18 22:45 Plasma Lactic Acid Terence 1.9 mmol/L (0.7-2.0) 05/11/18 15:00 Calcium 8.7 mg/dL (8.4-10.2) 05/27/18 04:20 Ionized Calcium Marcelina 4.6 mg/dL (4.5-5.3) 05/19/18 05:15 Phosphorus 5.5 mg/dL (2.5-4.5) H 05/27/18 04:20 Magnesium 1.9 mg/dL (1.6-2.3) 08/23/18 04:20 Iron 13 ug/dL (50-170) L 05/16/18 03:45 TIBC 199 ug/dL (228-460) L 05/16/18 03:45 Iron Saturation 6.53 (12.00-45.00) L 05/16/18 03:45 Ferritin 79.5 ng/mL (10.0-291.0) 05/16/18 03:45 Total Bilirubin 0.4 mg/dL (0.2-1.3) 05/11/18 15:00 AST 16 U/L (14-36) 05/11/18 15:00 ALT 30 U/L (9-52) 05/11/18 15:00 Alkaline Phosphatase 128 U/L (38-126) H 05/11/18 15:00 Total Creatine Kinase 40 U/L (30-135) 05/11/18 15:00 CK-MB (CK-2) 1.2 ng/mL (0.0-2.4) 05/11/18 15:00 CK-MB (CK-2) Rel Index 3.0 05/11/18 15:00 Troponin I 0.047 ng/mL (0.000-0.034) H* 05/12/18 03:06 NT-Pro-B Natriuret Pep 5490 pg/mL 05/11/18 15:00 Total Protein 4.9 g/dL (6.3-8.2) L 05/11/18 15:00 Albumin 2.6 g/dL (3.5-5.0) L 05/11/18 15:00 Triglycerides 123 mg/dL (<150) 05/19/18 05:15 TSH 3.890 mIU/L (0.465-4.680) 05/18/18 04:10 Cortisol 16 ug/dL 05/27/18 04:20 Urine Color Yellow 05/24/18 12:19 Urine Appearance Turbid (Clear) H 05/24/18 12:19 Urine pH 5.5 (5.0-8.0) 05/24/18 12:19 Ur Specific Gamaliel 1.013 (1.001-1.035) 05/24/18 12:19 Urine Protein 1+ (Negative) H 05/24/18 12:19 Urine Glucose (UA) Negative (Negative) 08/20/18 12:19 Urine Ketones Negative (Negative) 05/24/18 12:19 Urine Blood Large (Negative) H 05/24/18 12:19 Urine Nitrite Negative (Negative) 05/24/18 12:19 Urine Bilirubin Negative (Negative) 05/24/18 12:19 Urine Urobilinogen <2.0 mg/dL (<2.0) 05/24/18 12:19 Ur Leukocyte Esterase Large (Negative) H 05/24/18 12:19 Urine RBC 173 /hpf (0-5) H 05/24/18 12:19 Urine WBC 569 /hpf (0-5) H 05/24/18 12:19 Urine WBC Clumps Many /hpf (None) H 05/24/18 12:19 Ur Squamous Epith Cells <1 /hpf (0-4) 05/11/18 23:45 Amorphous Sediment Rare /hpf (None) H 05/11/18 23:45 Urine Bacteria Many /hpf (None) H 05/24/18 12:19 Hyaline Casts 49 /lpf (0-2) H 05/11/18 23:45 Urine Mucus Rare /hpf (None) H 05/11/18 23:45 Urine Osmolality 177 mosm/kg (50-1400) 05/25/18 22:45 Ur Random Sodium 11 mmol/L 05/25/18 22:45 Random Vancomycin 24.3 ug/mL 05/23/18 04:26 C. difficile (EIA) Intrp Negative (Negative) 05/12/18 08:53 Urine Legionella Ag Not detected (Not detected) 05/25/18 14:10 Virus Source See Below 05/14/18 10:05 Viral Test See Below 05/14/18 10:05 Virus Analysis Interp See Below 05/14/18 10:05 Blood Type A Positive 05/24/18 09:15 Blood Type Confirm A Positive 05/24/18 05:05 Blood Type Recheck CABO Indicated 05/24/18 09:15 Antibody Screen NEGATIVE 05/24/18 09:15 Crossmatch See Detail 05/24/18 09:15 Spec Expiration Date 05/27/2018 - 9559 05/24/18 09:15 Microbiology 05/24/18 16:00 Sputum Gram Stain - Final 05/24/18 16:00 Sputum Sputum Culture - Final Stenotrophomonas maltophilia 05/24/18 13:00 Blood Blood Culture - Preliminary No Growth after 72 hours 05/24/18 12:30 Blood Blood Culture - Preliminary No Growth after 72 hours 05/24/18 12:19 Urine,Voided Urine Culture - Final Charmaine albicans 05/14/18 10:05 Bronchial Washings - Left Fungal Culture - Preliminary 05/22/18 05:45 Sputum Gram Stain - Final 05/22/18 05:45 Sputum Sputum Culture - Final Stenotrophomonas maltophilia 05/11/18 15:00 Blood Blood Culture - Final No Growth after 144 hours 05/14/18 10:05 Bronchial Washings - Left Gram Stain - Final 05/14/18 10:05 Bronchial Washings - Left Bronchial Washings Culture - Final Methicillin resist S. aureus 05/14/18 10:05 Bronchial Washings - Left Acid Fast Bacilli Smear - Final 05/14/18 10:05 Bronchial Washings - Left Acid Fast Bacilli Culture - Preliminary 05/11/18 23:45 Urine,Catheterized Urine Culture - Final Assessment and Plan (1) Acute respiratory failure Current Visit: Yes Status: Acute Priority: High Code(s): J96.00 - ACUTE RESPIRATORY FAILURE, UNSP W HYPOXIA OR HYPERCAPNIA SNOMED Code(s): 08672956 (2) COPD (chronic obstructive pulmonary disease) Current Visit: Yes Status: Acute Priority: High Code(s): J44.9 - CHRONIC OBSTRUCTIVE PULMONARY DISEASE, UNSPECIFIED SNOMED Code(s): 75227263 (3) Pressure ulcer of buttock Narrative/Plan: 67-year-old presents to Hospital with respiratory failure she is now extubated and is showing improvement. The Mepilex dressing is applied to the coccyx wound. The patient's bronchoscopy reveals evidence of staph and antimicrobial therapy is being utilized with Azactam and vancomycin pending further data. She does seem to be improving but appears she will need to be on BiPAP overnight which is unusual for her at home. She does appear to have a poor prognosis. 05/17/2018 patient is extubated but is requiring ongoing BiPAP therapy due to her ongoing respiratory difficulties, she is only on 40% FiO2 but desaturates rapidly when the positive pressure ventilation is removed. Pulmonary critical care is working with the family as to overall plan. Because of the current status she is not able to eat pretty because she is so short of breath and secondly did not pass a bedside swallow test. Her prognosis is poor. MRSA pneumonia and has been found continue vancomycin at this time, cefepime will be discontinued in the morning if no further positive cultures are found. 05/18/2018 patient remains extubated but BiPAP dependent but is on 24% FiO2. Patient is comfortable and there are plans for TPN but no plans for tracheostomy or PEG tube. We'll discontinue cefepime since only MRSA has been grown from her sputum with MRSA pneumonia as the etiology of her current sepsis and respiratory failure. 05/21/2018 patient remains extubated and comfortable on the BiPAP. Did have a 5 hour break today. Her renal failure is improved. She has evidence of MRSA pneumonia. And with her improvement with complete her course of vancomycin therapy with closely monitoring her troughs and monitoring for any further renal toxicity. She the norepinephrine as well as agents that make Zyvox not compatible. 05/24/2018as noted in the sputum culture now has stenotrophomonas maltophilia which is fortunate susceptible to Bactrim. The prior MRSA isolate from the sputum was also Bactrim susceptible and escalate antimicrobial therapy is changed to intravenous trimethoprim sulfamethoxazole and dose was communicated to pharmacy. Renal function will be monitored. As noted family meeting is trying to be arranged so that most appropriate plans will be developed regarding her overall discharge course. 05/27/2018 patient is status post tracheostomy tube placement and PEG tube placement. She is stable and showing some improvement. Chest x-ray today is improved and seems to be having response to the trimethoprim sulfamethoxazole therapy for the treatment of her underlying stenotrophomonas pneumonia as well as MRSA. We'll plan a total of 14 days of Bactrim for this complex gram- negative pneumonia. Current Visit: Yes Status: Acute Code(s): L89.309 - PRESSURE ULCER OF UNSPECIFIED BUTTOCK, UNSPECIFIED STAGE SNOMED Code(s): 875253839
[2018-05-27 23:54] LABS: Glucose,Whole Blood 145 mg/dL (75-99)
[2018-05-28] MEDS: INSULIN ASPART 100 UNIT/ML 1 ML 10 ML VIAL SQ SCH ×5 (00:07→16:38)
[2018-05-28] MEDS: SODIUM CHLORIDE 0.9% 1,000 ML IV SCH ×2 (00:07→10:45)
[2018-05-28 03:49] LABS: Glucose,Whole Blood 80 mg/dL (75-99)
[2018-05-28] MEDS: IPRATROPIUM-ALBUTEROL 3 ML NEB INHALATION SCH ×4 (04:22→15:31)
[2018-05-28 04:48] LABS: Anisocytosis Slight; Basophils # (A) 0.1 k/uL (0-0.2); Basophils % (A) 0 %; Eosinophils # (A) 0.1 k/uL (0-0.7); Eosinophils % (A) 1 %; HCT 26.1 % (34.0-46.0); HGB 7.9 gm/dL (11.4-16.0); Hypochromasia Marked; Lymphocytes # (A) 0.8 k/uL (1.0-4.8); Lymphocytes % (A) 6 %; MCH 27.1 pg (25.0-35.0); MCHC 30.3 g/dL (31.0-37.0); MCV 89.4 fL (80.0-100.0); Mean Platelet Volume 7.9; Monocytes # (A) 0.8 k/uL (0-1.0); Monocytes % (A) 6 %; Neutrophils # (A) 11.7 k/uL (1.3-7.7); Neutrophils % (A) 85 %; Platelet Count 274 k/uL (150-450); RBC 2.92 m/uL (3.80-5.40); RDW 18.9 % (11.5-15.5); WBC 13.7 k/uL (3.8-10.6)
[2018-05-28 05:04] LABS: ABG Base Excess 3.8 mmol/L; ABG HCO3 29 mmol/L (21-25); ABG Oxygen Saturation 99.6 % (94-97); ABG PCO2 53 mmHg (35-45); ABG PH 7.35 (7.35-7.45); ABG PO2 131 mmHg (83-108); ABG TCO2 31 mmol/L (19-24)
[2018-05-28 05:19] LABS: Calcium 8.6 mg/dL (8.4-10.2); Phosphorus 5.2 mg/dL (2.5-4.5); Potassium 4.1 mmol/L (3.5-5.1)
--- NOTE | 2018-05-28 06:14 | P.PN ---
Subjective Progress Note Date: 05/28/18 Principal diagnosis: This 67-year-old female is followed up with acute kidney injury secondary to prerenal, congestive heart failure atrial fibrillation. She was reintubated and remains on the vent, has now had tracheostomy and PEG. She was on levo that was dcd 05/28/18. She had hyponatremia and to correct that we have started on IV Lasix and normal saline combination. She is currently awake and alert on the vent at percent FiO2 improved from 50 percent She follows commands. Her urine output is 21 60 mL mL, intake is documented at 3438. Her creatinine continues to go up slowly, possibly a reflection of vancomycin toxicity and now she is on Bactrim which is an add further risks for renal injury and hyperkalemia She was admitted with acute on chronic hypoxic respiratory failure, with pulmonary edema due to combination of acute diastolic CHF exacerbation and fluid redistribution in the background of chronic renal insufficiency with A. fib with RVR with obstructive lung disease, obesity hypoventilation and chronic hypercarbic respiratory failure; status post endotracheal intubation Objective - Vital Signs Vital signs: Vital Signs Temp 98.2 F 05/28/18 04:00 Pulse 73 05/28/18 05:00 Resp 20 05/28/18 05:00 BP 81/56 05/27/18 12:00 Pulse Ox 100 05/28/18 05:00 Intake & Output 05/27/18 05/27/18 05/28/18 06:59 18:59 06:59 Intake Total 2408.605 2378.871 2204.072 Output Total 1100 455 687 Balance 0749.713 2193.871 1517.072 Weight 123.8 kg 123.8 kg Intake: IV 1700 1800 1588 Sodium Chloride 0.9% 1, 1200 1200 1100 000 ml @ 100 mls/hr IV . Q10H [facility] Rx#:[id number] Sulfamethox-Tmp 80-16Mg/ 500 600 488 ml 160 mg In Dextrose 5% in Water 500 ml @ 250 mls /hr IVPB Q12HR [facility] Rx#: [id number] Intake, IV Titration 288.605 278.871 116.072 Amount Heparin Sod,Pork in 0.45% 271.446 228.554 116.072 NaCl 25,000 unit In 0.45 % NaCl 1 500ml.bag @ 9.8 UNITS/KG/HR 21.91 mls/hr IV .[id number] [facility] Rx#: [id number] Norepinephrine 16 mg In 17.159 50.317 Sodium Chloride 0.9% 250 ml @ Titrate IV .Q0M [facility] Rx#:[id number] Tube Feeding 330 120 440 Other 90 180 60 Output: Urine 1100 455 687 Other: Voiding Method Indwelling Catheter Indwelling Catheter Indwelling Catheter ABP, PAP, CO, CI - Last Documented Arterial Blood Pressure 95/51 She is awake alert follows commands. HEENT exam JVP is difficult to see the short neck. She has a tracheostomy. Neck is supple no facial asymmetry Lungs are clear to auscultation with fair air entry bilaterally. Heart sounds are unremarkable she is in atrial fibrillation this morning Abdomen soft nontender slightly obese protuberant Extremity exam was 2-3+ edema Neurologically awake alert oriented and follows commands - Labs CBC & Chem 7: 05/28/18 04:25 05/28/18 04:25 Labs: Abnormal Lab Results - Last 24 Hours (Table) 05/27/18 05/27/18 05/27/18 Range/Units 04:20 04:20 08:11 WBC 16.4 H (3.8-10.6) k/uL RBC 3.01 L (3.80-5.40) m/uL Hgb 8.4 L (11.4-16.0) gm/dL Hct 26.4 L (34.0-46.0) % MCHC (31.0-37.0) g/dL RDW 19.1 H (11.5-15.5) % Neutrophils # 14.3 H (1.3-7.7) k/uL Lymphocytes # 0.8 L (1.0-4.8) k/uL APTT (22.0-30.0) sec ABG pCO2 (35-45) mmHg ABG pO2 (83-108) mmHg ABG HCO3 (21-25) mmol/L ABG Total CO2 (19-24) mmol/L ABG O2 Saturation (94-97) % Sodium 128 L (137-145) mmol/L Chloride 91 L (98-107) mmol/L BUN 49 H (7-17) mg/dL Creatinine 1.90 H (0.52-1.04) mg/dL POC Glucose (mg/dL) 111 H (75-99) mg/dL Phosphorus (2.5-4.5) mg/dL 05/27/18 05/27/18 05/27/18 Range/Units 12:05 13:30 19:53 WBC (3.8-10.6) k/uL RBC (3.80-5.40) m/uL Hgb (11.4-16.0) gm/dL Hct (34.0-46.0) % MCHC (31.0-37.0) g/dL RDW (11.5-15.5) % Neutrophils # (1.3-7.7) k/uL Lymphocytes # (1.0-4.8) k/uL APTT 48.6 H (22.0-30.0) sec ABG pCO2 (35-45) mmHg ABG pO2 (83-108) mmHg ABG HCO3 (21-25) mmol/L ABG Total CO2 (19-24) mmol/L ABG O2 Saturation (94-97) % Sodium (137-145) mmol/L Chloride (98-107) mmol/L BUN (7-17) mg/dL Creatinine (0.52-1.04) mg/dL POC Glucose (mg/dL) 150 H 123 H (75-99) mg/dL Phosphorus (2.5-4.5) mg/dL 05/27/18 05/28/18 05/28/18 Range/Units 23:53 04:25 04:25 WBC (3.8-10.6) k/uL RBC (3.80-5.40) m/uL Hgb (11.4-16.0) gm/dL Hct (34.0-46.0) % MCHC (31.0-37.0) g/dL RDW (11.5-15.5) % Neutrophils # (1.3-7.7) k/uL Lymphocytes # (1.0-4.8) k/uL APTT 48.9 H (22.0-30.0) sec ABG pCO2 (35-45) mmHg ABG pO2 (83-108) mmHg ABG HCO3 (21-25) mmol/L ABG Total CO2 (19-24) mmol/L ABG O2 Saturation (94-97) % Sodium 127 L (137-145) mmol/L Chloride 92 L (98-107) mmol/L BUN 51 H (7-17) mg/dL Creatinine 1.80 H (0.52-1.04) mg/dL POC Glucose (mg/dL) 145 H (75-99) mg/dL Phosphorus 5.2 H (2.5-4.5) mg/dL 05/28/18 05/28/18 Range/Units 04:25 05:00 WBC 13.7 H (3.8-10.6) k/uL RBC 2.92 L (3.80-5.40) m/uL Hgb 7.9 L (11.4-16.0) gm/dL Hct 26.1 L (34.0-46.0) % MCHC 30.3 L (31.0-37.0) g/dL RDW 18.9 H (11.5-15.5) % Neutrophils # 11.7 H (1.3-7.7) k/uL Lymphocytes # 0.8 L (1.0-4.8) k/uL APTT (22.0-30.0) sec ABG pCO2 53 H (35-45) mmHg ABG pO2 131 H (83-108) mmHg ABG HCO3 29 H (21-25) mmol/L ABG Total CO2 31 H (19-24) mmol/L ABG O2 Saturation 99.6 H (94-97) % Sodium (137-145) mmol/L Chloride (98-107) mmol/L BUN (7-17) mg/dL Creatinine (0.52-1.04) mg/dL POC Glucose (mg/dL) (75-99) mg/dL Phosphorus (2.5-4.5) mg/dL Microbiology - Last 24 Hours (Table) 05/14/18 10:05 Acid Fast Bacilli Smear - Final Bronchial Washings - Left Acid Fast Bacilli Culture - Preliminary 05/24/18 16:00 Gram Stain - Final Sputum Sputum Culture - Final Stenotrophomonas maltophilia 05/24/18 13:00 Blood Culture - Preliminary Blood No Growth after 72 hours 05/24/18 12:30 Blood Culture - Preliminary Blood No Growth after 72 hours Assessment and Plan Assessment: Impression 1. Acute kidney injury with component from cardiorenal syndrome, somewhat fluid overloaded with chest x-ray is suggestive congestive heart failure and edema. Additionally there may be septic component as she deteriorated and had to be reintubated anesthesiology medical doctor 05/22/2018. Additionally patient is on vancomycin which is added to her ATN, vancomycin levels have been high. Her vancomycin was discontinued 05/22/18, she is on Bactrim. Her creatinine has gone up over the last 2 days slowly from 1.3 > 1.9 >1.8 2. Baseline creatinine unknown. 3. Atrial fibrillation on amiodrone. Heart rate controlled 4. Moderate edema, Congestive heart failure, chest x-ray seems to be about same , remains on 50% FiO2. Currently on IV fluids + lasix for hyponatremia 5. Hypo-natremia secondary to volume overload, and secondary to acute kidney injury, sodium improved on Lasix and normal saline combination to 128 >127 today 6. Mild respiratory acidosis pH 7.39, pCO2 is 51 Recommendation 1. Continue IV normal saline 100 mL an hour, but increase the Lasix was 20 mg every 8 hours to see if we can improve her sodium somewhat. 2. Watch sodium, intake and output and try to keep it even 2. Avoid nephrotoxic medication including Bactrim ( vancomycin, discontinued 05/22/2018) 3. Monitor labs closely on a daily basis
--- NOTE | 2018-05-28 06:57 | XR ---
EXAMINATION TYPE: XR chest 1V portable DATE OF EXAM: 05/28/2018 CLINICAL HISTORY: Difficulty breathing and pulmonary edema progress study. TECHNIQUE: Single AP portable upright view of the chest is obtained. COMPARISON: Chest x-ray from one day earlier and older studies. FINDINGS: There is stable left-sided PICC line and tracheostomy tube. Cardiomegaly is redemonstrated . There is background chronic emphysematous change with left basilar opacity redemonstrated. Subluxat ion right glenohumeral joint is again noted. Suspect tiny right pleural effusion. IMPRESSION: Overall stable findings, cardiomegaly and chronic parenchymal change with small to mode rate-sized left pleural effusion and associated left basilar atelectasis and/or infiltrate all redemo nstrated.
[2018-05-28 08:47] LABS: Glucose,Whole Blood 100 mg/dL (75-99)
[2018-05-28] MEDS: CHLORHEXIDINE GLUCONATE 15 ML CUP MUCOUS MEM SCH (08:54)
[2018-05-28] MEDS: PANTOPRAZOLE 40 MG/10 ML VIAL IV SCH (08:54)
[2018-05-28] MEDS: FUROSEMIDE 10 MG/ML 2 ML VIAL IV SCH ×3 (08:54→16:37)
[2018-05-28] MEDS: AMIODARONE 200 MG TAB PO SCH (08:55)
[2018-05-28] MEDS: ASPIRIN 325 MG TAB PO SCH (08:55)
[2018-05-28] MEDS: POLYETHYLENE GLYCOL 3350 17 GM POWD.PACK PO SCH (08:55)
[2018-05-28] MEDS: DEXTROSE 5% IVPB SCH ×2 (08:57)
[2018-05-28] MEDS: SODIUM CHLORIDE TAB 1 GM TAB PO SCH (08:57)
[2018-05-28] MEDS: WATER IVPB SCH ×2 (08:57)
[2018-05-28] MEDS: SULFAMETHOX TMP IVPB SCH ×2 (08:57)
[2018-05-28] MEDS ORDERED: APIXABAN 2.5 MG TABLET PO SCH (09:45)
[2018-05-28 12:28] LABS: Glucose,Whole Blood 114 mg/dL (75-99)
--- NOTE | 2018-05-28 13:29 | P.PN ---
Subjective Progress Note Date: 05/28/18 On today's evaluation of 05/24/2018, the patient is intubated on a mechanical ventilator. She is sedated with Diprivan. Earlier this morning she was on 20 mics of the prevent and she was able to arouse open up her eyes and moving extremities. She is on a mechanical ventilator assist control mode and this morning she assist control of 20 with a tidal volume of 400 and FiO2 of 40% and a PEEP of 5. The chest x-ray showing a left lower lobe consolidation. The blood gases showing a pH of 7.4 with a pCO2 of 59 and pO2 of 103 this was on FiO2 of 40%. The patient has been intubated. The patient has no significant orotracheal secretions. Sputum samples were sent is showing gram-negative bacillus which turns out to be a stenotrophomonas and insistent to IV Fortaz. I 'm assuming this to be also resistant to cefepime. The patient was effective in the past with MRSA and current antibiotic coverage including a combination of cefepime and Zyvox. Hemodynamically, the patient is hypotensive. The patient is currently on pressors and the patient is on 13 mics of norepinephrine infusion for hemodynamic support. The white cell count went as high as 31.7 and currently is down to 24.3. The patient was found to have a low hemoglobin this morning at 6.9. No evidence of any acute bleeding. She'll be given a total of 2 units of packed RBCs. Cardiothoracic surgery has been consulted in consultation for PEG and trach within next 24 hours. Meanwhile, the patient is tolerating her tube feeds. The renal function is stable and continues to improve. She is producing adequate amount of urine output. Her net fluid balance is positive over the past 24 hours. She remains in atrial fibrillation. The patient remains in a amiodarone drip. The patient is also IV heparin. Echocardiogram at shown impairment LV function with an ejection fraction of 30-35% and right ventricular being mildly enlarged and moderate degree of pulmonary hypertension. On today's evaluation of 05/25/2018, the patient remains intubated on a mechanical ventilator. As mentioned yesterday stenotrophomonas was cultured from the patient's lungs and without the second source of sepsis was a stenotrophomonas pneumonia. As such the patient was started on Bactrim and restless and this was discontinued. This was done in consultation with infectious disease. This morning she is afebrile. Her white cell count has dropped down to 18. She was weaned off the pressors and currently she is off pressors. The patient is also given a total of 2 units of packed RBC and hemoglobin is up to 8.6. The plan for today is to proceed with a PEG and trach. She remains on assist control mode of ventilation. She is on assist control of 20 with tidal volume of 400 and FiO2 of 40% and PEEP of 5. Morning blood gases showed a pH of 7.39 with a pCO2 of 55 and pO2 11. Chest x-ray shows stable consolidation of left lower lung. The sodium levels in the decline in the sodium level is down to 126 with a bicarb level of 32 and chloride level of 88. The patient will be started on normal saline infusion. The patient was receiving tube feeds which is currently on hold pending packed trach. The patient also is off IV heparin for her PEG and trach. This will be done within next few hours by Dr. Bravo. Otherwise she is still on low grade sedation and she is easily arousable. Echocardiogram at shown an impairment in the Function with an ejection fraction of 3035% with moderate degree of pulmonary hypertension. On 05/26/2018, the patient is post PEG and trach insertion. The procedure was done successfully and the patient was gradually weaned off the Diprivan and currently she is awake and alert and following commands and answering questions. She is moving all 4 extremities although there is significant motor weakness lower extremity is bilaterally. She is able to raise her arms against gravity. She is on a mechanical ventilator assist control mode and the vent setting are essentially same with an assist-control mode at the rate of 20 with a tidal volume of 400 and FiO2 of 40% and PEEP of 5. Chest x-ray shows left lower lobe consolidation. The blood gases from today showed a pH of 7.4 with a pCO2 of 51 and pO2 of 85. No significant secretions from his tracheostomy tube. The patient is breathing comfortably and she is synchronous with the mechanical ventilator. The fact he was also and then the patient be started on enteral feeding for nutritional support. Also, the patient is being monitored regarding her renal failure. Note that the patient is on Bactrim for stenotrophomonas and this was initiated after consultation with infectious disease. The patient's renal function is impaired yet it is stable for now and creatinine today is at 1.6, stable. Aggressive the electrolytes show a component of hyponatremia. The sodium was 129 and it gradually dropped over the past 3 days to 128 and 125 and 124. The patient was seen by nephrology. The patient was given normal saline infusion following that she was given Lasix and in addition to that she was given a tablet of Tolvaptan, 15mg which failed to improve her sodium level. At this point in time the patient is on sodium chloride tablets 1 g twice a day. She is also being given Lasix 20 mg every 12 hours pH is also on norepinephrine infusion for hemodynamic support. The patient is currently on 3 mics of norepinephrine infusion. She is also in atrial fibrillation with a controlled rate. She is on amiodarone, milligrams by mouth twice a day and IV heparin his back. No other significant events overnight otherwise. As mentioned earlier the patient's ejection fraction is around 30-35% consistent with CHF in addition to moderate degree of pulmonary hypertension. On 05/27/2018, the patient is awake and alert. She is post PEG and trach insertion for respiratory failure and failure to wean. She has a tracheostomy tube in place. She is an assist-control mode of ventilation. Earlier this morning she was assist control of 20 with a tidal volume of 400 with an FiO2 of 40% and a PEEP of 5. Chest x-ray showed further improvement in the aeration and infiltration of the left lower lobe. The blood gases showed a pH of 7.39 with a pCO2 of 51 and pO2 of 105 and this was on FiO2 of 40% indicating improvement in the patient's oxygenation. Based on this, I checked weaning parameters which do not to be very good and put the patient a pressure support of 7 and PEEP of 5 and she was able to tolerate this mode that he well without any signs of respiratory distress. Meanwhile, the patient is still on Bactrim. Renal function remains impaired yet stable with a creatinine of 1.9. Sodium level is improving. 11/05/2027. The patient on IV Lasix. The patient is still on 3-5 mics of norepinephrine infusion for blood pressure control. No fever. No chills. Tolerating the tube feeds. She is quite weak and she is able to move upper extremities however her lower extremities is extremely weak. The patient remains on IV heparin. She remains in atrial fibrillation. Rate is controlled for now. On 05/28/2018, patient is being seen for a follow-up. This morning she is awake and alert. She was able to tolerate pressure support mode of ventilation with a pressure support of 7 and a PEEP of 5 all day, yesterday. This morning she is back on the same setting. She is breathing comfortably and there are no signs of any respiratory distress. She is off pressors. She is in atrial fibrillation with a controlled rate. She is on IV heparin. She is producing adequate amount of urine output. Creatinine is at 1.8. Sodium level is still impaired at 127 and the patient is receiving normal saline at the rate of 100 mL an hour and Lasix 20 mg every 8 hours and nephrology is making the fluid management and electrolytes management in regards to her hyponatremia. The morning blood gas showed a pH of 7.35 with a pCO2 of 53 and pO2 of 131 and this was done on an assist-control mode of ventilation with an FiO2 of 40%. No significant secretions from her tracheostomy. Her PEG tube is functional. No other significant events overnight. The patient is being considered to be [facility]. Objective - Vital Signs Vital signs: Vital Signs Temp 98.8 F 05/28/18 08:00 Pulse 87 05/28/18 13:00 Resp 19 05/28/18 13:00 BP 86/66 05/28/18 13:00 Pulse Ox 98 05/28/18 13:00 Intake & Output 05/27/18 05/28/18 05/28/18 18:59 06:59 18:59 Intake Total 2378.871 2344.072 1319.912 Output Total 455 687 175 Balance 7717.959 6806.072 1144.912 Weight 123.8 kg 124.3 kg Intake: IV 1800 1688 926 Sodium Chloride 0.9% 1, 1200 1200 426 000 ml @ 100 mls/hr IV . Q10H [facility] Rx#:[id number] Sulfamethox-Tmp 80-16Mg/ 600 488 500 ml 160 mg In Dextrose 5% in Water 500 ml @ 250 mls /hr IVPB Q12HR [facility] Rx#: [id number] Intake, IV Titration 278.871 116.072 273.912 Amount Heparin Sod,Pork in 0.45% 228.554 116.072 273.912 NaCl 25,000 unit In 0.45 % NaCl 1 500ml.bag @ 9.8 UNITS/KG/HR 21.91 mls/hr IV .[id number] [facility] Rx#: [id number] Norepinephrine 16 mg In 50.317 Sodium Chloride 0.9% 250 ml @ Titrate IV .Q0M [facility] Rx#:[id number] Tube Feeding 120 480 120 Other 180 60 Output: Urine 455 687 175 Other: Voiding Method Indwelling Catheter Indwelling Catheter ABP, PAP, CO, CI - Last Documented Arterial Blood Pressure 95/46 - Exam Gen. appearance obese, comfortable, awake and alert and the patient is a tracheostomy tube in place. The tracheostomy site is dry clean and intact. Head exam was generally normal. There was no scleral icterus or corneal arcus. Mucous membranes were moist. Neck was supple and without jugular venous distension, thyromegaly, or carotid bruits. Carotids were easily palpable bilaterally. There was no adenopathy. The patient has a right IJ triple-lumen catheter in place. Lungs sounds are diminished bilaterally along with some few scattered external wheezes heard throughout the lung loyd. Breath sounds are overall diminished. Heart sounds are irregular S1-S2, no cervical murmurs appreciated. Monitor the current heave or thrill. Abdomen is obese soft nontender. Organs cannot be accurately palpated. No direct tenderness. No rebound tenderness. No guarding. Extremities revealed +1 pitting edema and there is no cyanosis or clubbing at this point. No evidence of any acute cellulitis although there is some erythema in the left lower extremity. The PEG tube site is clean and the patient has no significant abdominal tenderness erythema or drainage around the tube. Skin shows a stage II small wounds i the back area. No open wounds or sores. No evidence of any cellulitis. Neurologically patient is off sedation awake and following commands and answering questions appropriately. She can follow commands easily. She has significant motor weakness lower extremities bilaterally and she is able to raise her arms against gravity with the motor function of 3 out of 5 in the upper extremities bilaterally. - Labs CBC & Chem 7: 05/28/18 04:25 05/28/18 04:25 Labs: Abnormal Lab Results - Last 24 Hours (Table) 05/27/18 05/27/18 05/27/18 Range/Units 13:30 19:53 23:53 WBC (3.8-10.6) k/uL RBC (3.80-5.40) m/uL Hgb (11.4-16.0) gm/dL Hct (34.0-46.0) % MCHC (31.0-37.0) g/dL RDW (11.5-15.5) % Neutrophils # (1.3-7.7) k/uL Lymphocytes # (1.0-4.8) k/uL APTT 48.6 H (22.0-30.0) sec ABG pCO2 (35-45) mmHg ABG pO2 (83-108) mmHg ABG HCO3 (21-25) mmol/L ABG Total CO2 (19-24) mmol/L ABG O2 Saturation (94-97) % Sodium (137-145) mmol/L Chloride (98-107) mmol/L BUN (7-17) mg/dL Creatinine (0.52-1.04) mg/dL POC Glucose (mg/dL) 123 H 145 H (75-99) mg/dL Phosphorus (2.5-4.5) mg/dL 05/28/18 05/28/18 05/28/18 Range/Units 04:25 04:25 04:25 WBC 13.7 H (3.8-10.6) k/uL RBC 2.92 L (3.80-5.40) m/uL Hgb 7.9 L (11.4-16.0) gm/dL Hct 26.1 L (34.0-46.0) % MCHC 30.3 L (31.0-37.0) g/dL RDW 18.9 H (11.5-15.5) % Neutrophils # 11.7 H (1.3-7.7) k/uL Lymphocytes # 0.8 L (1.0-4.8) k/uL APTT 48.9 H (22.0-30.0) sec ABG pCO2 (35-45) mmHg ABG pO2 (83-108) mmHg ABG HCO3 (21-25) mmol/L ABG Total CO2 (19-24) mmol/L ABG O2 Saturation (94-97) % Sodium 127 L (137-145) mmol/L Chloride 92 L (98-107) mmol/L BUN 51 H (7-17) mg/dL Creatinine 1.80 H (0.52-1.04) mg/dL POC Glucose (mg/dL) (75-99) mg/dL Phosphorus 5.2 H (2.5-4.5) mg/dL 05/28/18 05/28/18 05/28/18 Range/Units 05:00 08:44 12:20 WBC (3.8-10.6) k/uL RBC (3.80-5.40) m/uL Hgb (11.4-16.0) gm/dL Hct (34.0-46.0) % MCHC (31.0-37.0) g/dL RDW (11.5-15.5) % Neutrophils # (1.3-7.7) k/uL Lymphocytes # (1.0-4.8) k/uL APTT (22.0-30.0) sec ABG pCO2 53 H (35-45) mmHg ABG pO2 131 H (83-108) mmHg ABG HCO3 29 H (21-25) mmol/L ABG Total CO2 31 H (19-24) mmol/L ABG O2 Saturation 99.6 H (94-97) % Sodium (137-145) mmol/L Chloride (98-107) mmol/L BUN (7-17) mg/dL Creatinine (0.52-1.04) mg/dL POC Glucose (mg/dL) 100 H 114 H (75-99) mg/dL Phosphorus (2.5-4.5) mg/dL Microbiology - Last 24 Hours (Table) 05/14/18 10:05 Acid Fast Bacilli Smear - Final Bronchial Washings - Left Acid Fast Bacilli Culture - Preliminary 05/24/18 16:00 Gram Stain - Final Sputum Sputum Culture - Final Stenotrophomonas maltophilia 05/24/18 13:00 Blood Culture - Preliminary Blood No Growth after 72 hours 05/24/18 12:30 Blood Culture - Preliminary Blood No Growth after 72 hours Assessment and Plan Plan: Assessment 1 acute on top of chronic hypoxic and hypercapnic respiratory failure. Patient initially presented with a MRSA left lower lobe pneumonia. Most recent sputum analysis showing stenotrophomonas and the patient failed initial extubation the patient is currently post-tracheostomy tube insertion. The patient is tolerating pressure support mode of ventilation. We'll keep her on a pressure support of 7 and PEEP of 5 throughout the day and put on assist control [facility] will be done today. [facility] 2 MRSA pneumonia of the left lower lobe with subsequent gross with stenotrophomonas. The patient is still on IV Bactrim. Will consider switching this patient to oral Bactrim. 3 acute hypotension and the patient is looking more septic as the patient is was resuscitated and the patient is currently pressor dependent with leukocytosis a new microorganism in her lungs/stenotrophomonas. In addition, the patient has an ejection fraction of 30-35%. The patient is currently off pressors and were maintaining a mean arterial pressure above 65 4 CHF with an ejection fraction of 30-35% and moderate degree of pulmonary hypertension. The patient has obvious systolic dysfunction 5 chronic kidney failure with stage III kidney disease and an acute kidney injury on top of chronic renal failure, likely secondary to hypotension, cardiorenal factors versus sepsis. Renal function is stable and the creatinine is at 1.8 6 stage III chronic decubitus ulceration without evidence of an acute cellulitis 7 morbid obesity with a BMI 41.0 8 chronic atrial fibrillation and the rate is controlled. The patient is currently on oral amiodarone and IV heparin. 9 coronary artery disease 10 recent hospitalization for diarrhea/C. diff colitis and the stool analysis was negative and the patient completed the course of deficit on outpatient basis 11 hypertension 12 degenerative arthritis and sciatica and chronic shoulder and back pain and knee pain and the patient has been wheelchair bound 13 COPD 14 chronic anemia , posttransfusion with 2 units of packed RBC and hemoglobin is up to 7.9 15 hypochloremic hyponatremia, being managed by nephrology. Treatment offered for hyponatremia was noted and the patient is still having a low sodium of 127 Plan We'll continue pressure support of 7 and a PEEP of 5 throughout the day and put the patient on assist control volume cycle mode of ventilation. Stop the IV heparin switch this patient with Eliquis 2.5 mg by mouth twice a day. Consult with ID regarding the possibility of switching this patient from IV to oral Bactrim. Continue IV fluids. Continue Lasix. Daily breathing trial a pressure support mode of ventilation and ultimately the patient will be a good candidate to be trach collar. [facility] as the patient is quite weak and debilitated at this point in time. Further [facility]. Case was discussed with a rest of the team and family is agreeable for this transfer. Potential [facility]. Continued care evaluation more than 30 minutes. Time with Patient: Greater than 30
[2018-05-28] MEDS ORDERED: SODIUM CHLORIDE 0.9% 500 ML IV ONE (13:30)
[2018-05-28] MEDS: ACETAMINOPHEN TAB 325 MG TAB PO PRN (15:07)
--- NOTE | 2018-05-28 15:51 | P.DS ---
Providers Date of admission: 05/11/18 16:55 Expected date of discharge: 05/28/18 Attending physician: Krissy Mon, Consults: 05/11/18 16:55 Consult Physician Routine Consulting Provider: Román Beltran Consult Reason/Comments: CHF, rapid atrial fibrillation Do you want consulting provider notified?: Yes Consult Physician Routine Consulting Provider: Nupur Lewis Consult Reason/Comments: CHF, renal insufficiency Do you want consulting provider notified?: Yes 05/11/18 17:13 Consult Physician Urgent Consulting Provider: Bridger Myers Consult Reason/Comments: CHF, Bipap, Do you want consulting provider notified?: Already Contacted 05/12/18 08:51 Consult Physician Urgent Consulting Provider: Alfredo Bland Consult Reason/Comments: c dificile, multiple decub ulcers Do you want consulting provider notified?: Yes 05/23/18 07:50 Consult Physician Urgent Consulting Provider: Joey Bravo Consult Reason/Comments: Tracheotomy and PEG placement Do you want consulting provider notified?: Yes Primary care physician: [facility] Hospital Course: This is a 67-year-old female with history of multiple medical problems including chronic hypercapnic respiratory failure, obstructive sleep apnea syndrome, COPD, patient is on home oxygen at 3 L, she is also on BiPAP and seems to be nocturnally BiPAP dependent. Patient is also known to have history of chronic atrial fibrillation, chronic decubitus ulcers, superficial leg ulcers , patient has a visiting nurse taking care of her ulcers and chronic wounds. She was noted by the visiting nurse to be dyspneic, for at least 24 hours prior to presentation. Patient has been using oxygen at home, BiPAP, as well as DuoNeb. Considering the patient was not noticing significant improvement, patient was advised to come to the ER. Upon arrival to the ER, patient was noted to be quite dyspneic, and did not improve much with BiPAP. Hence she was intubated by Dr. Steve Roberts, placed on mechanical ventilation, admitted to the ICU and this consult was initiated. Initial x-ray shows mild cardiomegaly and interstitial prominence. Of note patient was admitted 2 months ago at [facility] for heart failure. Labs showed troponins were mildly elevated at 0.046, 0.049, 0.047. Albumin 2.6 , TSH 1.550. C. difficile toxin was negative. Urinalysis was cloudy, leukoesterase large, WBC 33 and bacteria rare. BUN 44 and creatinine 2.59 however the patient is known to have history of chronic kidney disease stage III. ProBNP level was noted to be elevated over 5500. Troponin was borderline elevated. Urine showed pyuria and bacteriuria suggestive of urinary tract infection. Patient was empirically placed on aztreonam and vancomycin. During the initial ICU stay she was treated with amiodarone drip, aztreonam, vancomycin, Lasix drip as well as heparin drip. Her blood pressure was low and required norepinephrine. Repeat chest x-ray showed haziness in the left lower lobe suggesting atelectasis versus pneumonia. When in ICU she was in atrial fibrillation with RVR, placed on amiodarone to replace Cardizem as per cardiology. Echocardiogram reveals EF of 30-35%, moderate concentric left ventricular hypertrophy, left atrium severely dilated, mild mitral regurgitation, moderate tricuspid regurgitation, moderate pulmonary hypertension with right-sided pressures in the range of 50. For the CHF exacerbation she was treated with Lasix drip and that was switched to IV dosing. ALEJA inhibitor was contraindicated due to renal failure and hypotension. Beta carola was also contraindicated due to hypotension. Cardiology later in the hospitalization switched the amiodarone IV drip to oral. Regarding wounds, patient has stage II decubitus ulcer on the right buttocks, left hip and the shear-type injury to the right hip area, there is mild cellulitis to the left pretibial area. Patient was evaluated by ID who managed her antibiotics treatment. After several days of intubation patient was extubated on 05/17, after that she required BiPAP for several days. However respiratory condition continued to worsen with increasing respiratory rate and low saturations and required reintubation on 05/22. She had a bronchoscopy done by pulmonary service, bronchial washings grew MRSA and later grew stenotrophomonas. Throughout the hospitalization patient had leukocytosis with WBC count peaking at 32,000 and it came down to 13,000 on the day of discharge. She was followed by ID who switched her antibiotic coverage to Because of the renal failure patient was seen by nephrology service, throughout the hospitalization she was also having hyponatremia. Nephrology felt that patient has combination of CHF and hypervolemic hyponatremia. Because of that she was treated with IV fluids and Lasix at the same time. On the day of discharge sodium level improved to 127 and the creatinine improved to 1.8 from peak of 2.9. Regarding feeding she was initially on PPN but when she was reintubated she was started on tube feeds through the OG tube. Because of the prolonged intubation decision was made to perform tracheostomy as well as place a PEG tube. This was done on 05/26, case was discussed with her family who elected full code. Patient was also having severe anemia, with iron deficiency. Her hemoglobin went down to 6.7 through the hospitalization and she required 2 units of packed red blood cells transfusion in addition to 3 doses of IV iron. Her hemoglobin came up appropriately with that treatment. There was no signs of bleeding. Today patient is tolerating pressure support of 7 and a PEEP of 5 throughout the day. She'll be a good candidate for weaning to trach collar eventually. Today patient will be transferred [facility]. She will need to be continued on IV fluids and Lasix. She will also need to finish course of Bactrim. She will be discharged in a stable condition. Discharge diagnoses Acute MRSA pneumonia Acute respiratory failure, hypoxic and hypercarbic Chronic debility Acute CHF exacerbation Acute COPD exacerbation Acute renal failure on stage III chronic renal failure Leukocytosis Severe anemia of chronic disease combined with anemia of iron deficiency Patient Condition at Discharge: Serious Plan - Discharge Summary Discharge Rx Participant: Yes New Discharge Prescriptions: No Action Ondansetron [Zofran] 4 mg PO Q8HR PRN PRN Reason: Nausea Spironolactone [Aldactone] 50 mg PO DAILY@1200 Diclofenac Sodium [Voltaren Gel] 2 gram TOPICAL QID Albuterol Inhaler [Ventolin Hfa Inhaler] 1 - 2 puff INHALATION RT-Q6H PRN PRN Reason: Shortness Of Breath guaiFENesin [Mucinex] 1,200 mg PO Q12HR Montelukast [Singulair] 10 mg PO DAILY Metolazone [Zaroxolyn] 5 mg PO DAILY metFORMIN HCL [Glucophage] 500 mg PO DAILY Ipratropium Nebulized [Atrovent Nebulized] 0.5 mg INHALATION RT-QID Furosemide [Lasix] 40 mg PO BID Ibuprofen [Motrin Ib] 400 mg PO Q6H PRN PRN Reason: Pain Sucralfate [Carafate] 1 gm PO QID Gentamicin 0.1% Cream 1 applic TOPICAL TID Fluticasone Nasal Donaldson [Flonase Nasal [place]on] 2 spr EA NOSTRIL DAILY DULoxetine HCL [Cymbalta] 30 mg PO DAILY Umeclidinium Brm/Vilanterol Tr [Anoro Ellipta 62.5-25 Mcg INH] 1 puff INHALATION DAILY Fluticasone/Salmeterol [Advair 250-50 Diskus] 1 inhalation PO RT-BID Aspirin 325 mg PO DAILY Albuterol Nebulized [Ventolin Nebulized] 1.25 mg INHALATION RT-DAILY PRN PRN Reason: Shortness Of Breath Acetaminophen [Tylenol Extra Strength] 1,000 mg PO Q6H PRN PRN Reason: Pain Fidaxomicin [Dificid] 400 mg PO BID Discharge Medication List Acetaminophen [Tylenol Extra Strength] 1,000 mg PO Q6H PRN 05/11/18 [History] Albuterol Inhaler [Ventolin Hfa Inhaler] 1 - 2 puff INHALATION RT-Q6H PRN [History] Albuterol Nebulized [Ventolin Nebulized] 1.25 mg INHALATION RT-DAILY PRN [History] Aspirin 325 mg PO DAILY 05/11/18 [History] DULoxetine HCL [Cymbalta] 30 mg PO DAILY 05/11/18 [History] Diclofenac Sodium [Voltaren Gel] 2 gram TOPICAL QID 05/11/18 [History] Fidaxomicin [Dificid] 400 mg PO BID 05/11/18 [History] Fluticasone Nasal [place] [Flonase Nasal [place]] 2 spr EA NOSTRIL DAILY 05/11/18 [ History] Fluticasone/Salmeterol [Advair 250-50 Diskus] 1 inhalation PO RT-BID 05/11/18 [ History] Furosemide [Lasix] 40 mg PO BID 05/11/18 [History] Gentamicin 0.1% Cream 1 applic TOPICAL TID 05/11/18 [History] Ibuprofen [Motrin Ib] 400 mg PO Q6H PRN 05/11/18 [History] Ipratropium Nebulized [Atrovent Nebulized] 0.5 mg INHALATION RT-QID 05/11/18 [ History] Metolazone [Zaroxolyn] 5 mg PO DAILY 05/11/18 [History] Montelukast [Singulair] 10 mg PO DAILY 05/11/18 [History] Ondansetron [Zofran] 4 mg PO Q8HR PRN 05/11/18 [History] Spironolactone [Aldactone] 50 mg PO DAILY@1200 05/11/18 [History] Sucralfate [Carafate] 1 gm PO QID 05/11/18 [History] Umeclidinium Brm/Vilanterol Tr [Anoro Ellipta 62.5-25 Mcg INH] 1 puff INHALATION DAILY 05/11/18 [History] guaiFENesin [Mucinex] 1,200 mg PO Q12HR 05/11/18 [History] metFORMIN HCL [Glucophage] 500 mg PO DAILY 05/11/18 [History] Follow up Appointment(s)/Referral(s): Alec Germain MD [Primary Care Provider] - 1-2 days
[2018-05-28 16:10] VITALS: BP 100/57; RESP 16; TEMP 97.1
[2018-05-28 16:45] LABS: Glucose,Whole Blood 108 mg/dL (75-99)
[2018-05-28 16:49] VITALS: PULSE 90
[2018-05-28] MEDS ORDERED: SULFAMETHOX-TMP 200-40MG/5ML 20 ML CUP PEG/G-TUBE SCH (18:00)
--- NOTE | 2018-05-28 23:30 | P.PN ---
Subjective Progress Note Date: 05/28/18 This is a 67-year-old morbidly obese female that came into the emergency center yesterday with shortness of breath and lethargy. Patient apparently has been bedbound for the past 3 weeks due to shortness of breath. Patient has not been eating very much and also had diarrhea. She was treated outpatient with deficit and completed the course and was then placed on antidiarrheal agent. She was admitted 2 months ago at [facility] for heart failure. She required intubation in the emergency center. She was also found to have atrial fibrillation with RVR is currently on amiodarone drip. Cardiology is following. Nephrology is also following for acute kidney injury with BUN 44 and creatinine 2.59. Patient presented with leukocytosis but afebrile. Troponins were mildly elevated at 0.046, 0.049, 0.047. Albumin 2.6, TSH 1.550. C. difficile toxin was negative. Urinalysis was cloudy, leukoesterase large, WBC 33 and bacteria rare. Blood issuing no growth at 24 hours and urine culture is in progress. Patient is currently on norepinephrine, Lasix drip, amiodarone drip, heparin drip and sedation. He guarding antibiotics patient is on Azactam and vancomycin. Initial x-ray shows mild cardiomegaly and interstitial prominence. Correlate for heart failure and mild pulmonary vascular congestion. Small to moderate left and trace left pleural effusions with adjacent atelectasis and/or consolidation. Repeat chest x-ray this morning reveals improved aeration of the right upper lung. Haziness of the right hemidiaphragm likely represents a new trace right pleural effusion. Persistent retrocardiac obesity is favored to represent a small pleural effusion and left basilar atelectasis. Overall stable lines and tubes. Echocardiogram reveals EF of 3035%, moderate concentric left ventricular hypertrophy, elderly severely dilated, mild mitral regurgitation, moderate tricuspid regurgitation, moderate pulmonary hypertension. Regarding wounds, patient has stage II decubitus ulcer on the right buttocks, left hip and the shear-type injury to the right hip area there is mild cellulitis to the left pretibial area. Patient's bowel movements are currently soft. 05/14/2018 patient remains intubated sedated and mechanically ventilated but is now with a marked reduction in the amount of vasopressor therapy. Her sedation holiday earlier today was successful. However she had significant secretions on bronchoscopy was performed in large amounts of purulent secretions were suctioned. She is comfortable at this time. 05/15/2018. The patient is now extubated. We'll likely be on BiPAP overnight. Vasopressor therapy has been weaned and has almost completely been discontinued. 05/17/2018 patient extubated but remains BiPAP dependent. She is arousable but not highly interactive. Is complaining of some itchy skin other than this has no improvement. Patient remains extubated at 05/18/2018 but is BiPAP dependent however delivered oxygen level is now down to 24% and she is comfortable. Her lower extremity edema is improving. TPN is started no plans for tracheostomy or PEG tube 05/21/2018 patient has had a bit of a better day. She was on BiPAP for over 5 hours and tolerated it relatively well. His follow study was performed showing evidence the ability to swallow and she was given some medications orally with some applesauce. Although she is still quite short of breath doing well with BiPAP this evening without other new acute complaints. 05/24/2018 reveals the patient's significant decline over the weekend. Respiratory status acutely worsened requiring intubation. The nursing staff relate that there may not be a change in status and that the family may want tracheostomy and PEG tube placement. The ICU team is trying to have a family meeting to ensure meeting of the patient's wishes. 05/27/2018 doing well s/p trach and peg. Awake and tolerating therapy well.Levophed now on hold. 05/28/2018 the patient has had a tracheostomy and PEG tube placed. She is off vasopressor therapy and tolerating current interventions well. Receiving some IV fluid otherwise is ready for transfer to the [facility]. Objective - Vital Signs Vital signs: Vital Signs Temp 97.1 F L 05/28/18 16:00 Pulse 90 05/28/18 16:00 Resp 16 05/28/18 16:00 BP 100/57 05/28/18 16:00 Pulse Ox 99 05/28/18 16:00 Intake & Output 05/28/18 05/28/18 05/29/18 06:59 18:59 06:59 Intake Total 2344.072 2139.912 Output Total 687 430 Balance 9111.811 0101.912 Weight 124.3 kg Intake: IV 1688 1626 Sodium Chloride 0.9% 1, 1200 1126 000 ml @ 100 mls/hr IV . Q10H STEPHON Rx#:[id number] Sulfamethox-Tmp 80-16Mg/ 488 500 ml 160 mg In Dextrose 5% in Water 500 ml @ 250 mls /hr IVPB Q12HR STEPHON Rx#: [id number] Intake, IV Titration 116.072 273.912 Amount Heparin Sod,Pork in 0.45% 116.072 273.912 NaCl 25,000 unit In 0.45 % NaCl 1 500ml.bag @ 9.8 UNITS/KG/HR 21.91 mls/hr IV .[id number] STEPHON Rx#: [id number] Tube Feeding 480 240 Other 60 Output: Urine 687 430 Other: Voiding Method Indwelling Catheter Indwelling Catheter # Bowel Movements 1 ABP, PAP, CO, CI - Last Documented Arterial Blood Pressure 95/46 - Exam Gen: This is a morbidly obese 67-year-old female. she is now status post tracheostomy, receiving tube feeds are via PEG tube. sedated and comfortable HEENT: Head is atraumatic, normocephalic. Pupils equal, round. Sclerae is anicteric. Conjunctiva slightly pale. Mucous members of the mouth are dry. Oral gastric tube andtrach in place. NECK: Supple. No JVD. No lymphadenopathy. No thyromegaly. LUNGS:symmetrical air entry is noted. Diminished breath sounds the bilateral bases, expiratory wheezes are scattered HEART: Irregularly irregular rate and rhythm. No murmur. ABDOMEN: Currently obese. Soft. Bowel sounds are present. No masses. No tenderness. No significant redness under her abdominal fold or breast. InterDry and nystatin powder in place. peg in place EXTREMITIES: persistent bilateral pedal edema. Waffle-type boots in place. facial erythema resolving NEUROLOGICAL:mechanically ventilated and sedated, does interact, asks for her Jacqueline be repositions she's more comfortable. - Labs CBC & Chem 7: 05/28/18 04:25 05/28/18 04:25 Labs: Abnormal Lab Results - Last 24 Hours (Table) 05/27/18 05/28/18 05/28/18 Range/Units 23:53 04:25 04:25 WBC (3.8-10.6) k/uL RBC (3.80-5.40) m/uL Hgb (11.4-16.0) gm/dL Hct (34.0-46.0) % MCHC (31.0-37.0) g/dL RDW (11.5-15.5) % Neutrophils # (1.3-7.7) k/uL Lymphocytes # (1.0-4.8) k/uL APTT 48.9 H (22.0-30.0) sec ABG pCO2 (35-45) mmHg ABG pO2 (83-108) mmHg ABG HCO3 (21-25) mmol/L ABG Total CO2 (19-24) mmol/L ABG O2 Saturation (94-97) % Sodium 127 L (137-145) mmol/L Chloride 92 L (98-107) mmol/L BUN 51 H (7-17) mg/dL Creatinine 1.80 H (0.52-1.04) mg/dL POC Glucose (mg/dL) 145 H (75-99) mg/dL Phosphorus 5.2 H (2.5-4.5) mg/dL 05/28/18 05/28/18 05/28/18 Range/Units 04:25 05:00 08:44 WBC 13.7 H (3.8-10.6) k/uL RBC 2.92 L (3.80-5.40) m/uL Hgb 7.9 L (11.4-16.0) gm/dL Hct 26.1 L (34.0-46.0) % MCHC 30.3 L (31.0-37.0) g/dL RDW 18.9 H (11.5-15.5) % Neutrophils # 11.7 H (1.3-7.7) k/uL Lymphocytes # 0.8 L (1.0-4.8) k/uL APTT (22.0-30.0) sec ABG pCO2 53 H (35-45) mmHg ABG pO2 131 H (83-108) mmHg ABG HCO3 29 H (21-25) mmol/L ABG Total CO2 31 H (19-24) mmol/L ABG O2 Saturation 99.6 H (94-97) % Sodium (137-145) mmol/L Chloride (98-107) mmol/L BUN (7-17) mg/dL Creatinine (0.52-1.04) mg/dL POC Glucose (mg/dL) 100 H (75-99) mg/dL Phosphorus (2.5-4.5) mg/dL 05/28/18 05/28/18 Range/Units 12:20 16:35 WBC (3.8-10.6) k/uL RBC (3.80-5.40) m/uL Hgb (11.4-16.0) gm/dL Hct (34.0-46.0) % MCHC (31.0-37.0) g/dL RDW (11.5-15.5) % Neutrophils # (1.3-7.7) k/uL Lymphocytes # (1.0-4.8) k/uL APTT (22.0-30.0) sec ABG pCO2 (35-45) mmHg ABG pO2 (83-108) mmHg ABG HCO3 (21-25) mmol/L ABG Total CO2 (19-24) mmol/L ABG O2 Saturation (94-97) % Sodium (137-145) mmol/L Chloride (98-107) mmol/L BUN (7-17) mg/dL Creatinine (0.52-1.04) mg/dL POC Glucose (mg/dL) 114 H 108 H (75-99) mg/dL Phosphorus (2.5-4.5) mg/dL Microbiology - Last 24 Hours (Table) 05/24/18 13:00 Blood Culture - Preliminary Blood No Growth after 96 hours 05/24/18 12:30 Blood Culture - Preliminary Blood No Growth after 96 hours 05/14/18 10:05 Acid Fast Bacilli Smear - Final Bronchial Washings - Left Acid Fast Bacilli Culture - Preliminary Laboratory Results WBC 13.7 k/uL (3.8-10.6) H 05/28/18 04:25 RBC 2.92 m/uL (3.80-5.40) L 05/28/18 04:25 Hgb 7.9 gm/dL (11.4-16.0) L 05/28/18 04:25 Hct 26.1 % (34.0-46.0) L 05/28/18 04:25 MCV 89.4 fL (80.0-100.0) 05/28/18 04:25 MCH 27.1 pg (25.0-35.0) 05/28/18 04:25 MCHC 30.3 g/dL (31.0-37.0) L 05/28/18 04:25 RDW 18.9 % (11.5-15.5) H 05/28/18 04:25 Plt Count 274 k/uL (150-450) 05/28/18 04:25 Neutrophils % 85 % 05/28/18 04:25 Neutrophils % (Manual) 82 % 05/23/18 04:26 Band Neutrophils % 4 % 05/23/18 04:26 Lymphocytes % 6 % 05/28/18 04:25 Lymphocytes % (Manual) 6 % 05/23/18 04:26 Monocytes % 6 % 05/28/18 04:25 Monocytes % (Manual) 6 % 05/23/18 04:26 Eosinophils % 1 % 05/28/18 04:25 Eosinophils % (Manual) 1 % 05/23/18 04:26 Basophils % 0 % 05/28/18 04:25 Basophils % (Manual) 1 % 05/23/18 04:26 Metamyelocytes % 2 % 05/23/18 04:26 Myelocytes % 6 % 05/22/18 06:05 Neutrophils # 11.7 k/uL (1.3-7.7) H 05/28/18 04:25 Neutrophils # (Manual) 27.20 k/uL (1.3-7.7) H 05/23/18 04:26 Lymphocytes # 0.8 k/uL (1.0-4.8) L 05/28/18 04:25 Lymphocytes # (Manual) 1.90 k/uL (1.0-4.8) 05/23/18 04:26 Monocytes # 0.8 k/uL (0-1.0) 05/28/18 04:25 Monocytes # (Manual) 1.90 k/uL (0-1.0) H 05/23/18 04:26 Eosinophils # 0.1 k/uL (0-0.7) 05/28/18 04:25 Eosinophils # (Manual) 0.32 k/uL (0-0.7) 05/23/18 04:26 Basophils # 0.1 k/uL (0-0.2) 05/28/18 04:25 Basophils # (Manual) 0.32 k/uL (0-0.2) H 05/23/18 04:26 Metamyelocytes # (Man) 0.63 k/uL (0) H 05/23/18 04:26 Myelocytes # (Manual) 1.78 k/uL (0) H 05/22/18 06:05 Nucleated RBCs 0 /100 WBC (0-0) 05/23/18 04:26 Manual Slide Review Performed 05/23/18 04:26 Large Platelets Present 05/23/18 04:26 Polychromasia Present 05/21/18 04:51 Hypochromasia Marked 05/28/18 04:25 Poikilocytosis Slight 05/26/18 04:15 Anisocytosis Slight 05/28/18 04:25 PT 9.7 sec (9.0-12.0) 05/26/18 12:35 INR 1.0 (<1.2) 05/26/18 12:35 APTT 48.9 sec (22.0-30.0) H 05/28/18 04:25 D-Dimer 0.57 mg/L FEU (<0.60) 05/11/18 15:00 Sample Site [place] 05/28/18 05:00 ABG pH 7.35 (7.35-7.45) 05/28/18 05:00 ABG pCO2 53 mmHg (35-45) H 05/28/18 05:00 ABG pO2 131 mmHg (83-108) H 05/28/18 05:00 ABG HCO3 29 mmol/L (21-25) H 05/28/18 05:00 ABG Total CO2 31 mmol/L (19-24) H 05/28/18 05:00 ABG O2 Saturation 99.6 % (94-97) H 05/28/18 05:00 ABG Base Excess 3.8 mmol/L 05/28/18 05:00 Juancarlos Test Yes 05/28/18 05:00 FiO2 40 % 05/28/18 05:00 Sodium 127 mmol/L (137-145) L 05/28/18 04:25 Potassium 4.1 mmol/L (3.5-5.1) 05/28/18 04:25 Chloride 92 mmol/L (98-107) L 05/28/18 04:25 Carbon Dioxide 26 mmol/L (22-30) 05/28/18 04:25 Anion Gap 9 mmol/L 05/28/18 04:25 BUN 51 mg/dL (7-17) H 05/28/18 04:25 Creatinine 1.80 mg/dL (0.52-1.04) H 05/28/18 04:25 Est GFR (CKD-EPI)AfAm 34 (>60 ml/min/1.73 sqM) 05/28/18 04:25 Est GFR (CKD-EPI)NonAf 29 (>60 ml/min/1.73 sqM) 05/28/18 04:25 Glucose 75 mg/dL (74-99) 05/28/18 04:25 POC Glucose (mg/dL) 108 mg/dL (75-99) H 05/28/18 16:35 POC Glu [employer] ID 05/28/18 16:35 Osmolality 278 mosm/kg (280-301) L 05/25/18 22:45 Plasma Lactic Acid Terence 1.9 mmol/L (0.7-2.0) 05/11/18 15:00 Calcium 8.6 mg/dL (8.4-10.2) 05/28/18 04:25 Ionized Calcium Marcelina 4.6 mg/dL (4.5-5.3) 05/19/18 05:15 Phosphorus 5.2 mg/dL (2.5-4.5) H 05/28/18 04:25 Magnesium 2.0 mg/dL (1.6-2.3) 05/28/18 04:25 Iron 13 ug/dL (50-170) L 05/16/18 03:45 TIBC 199 ug/dL (228-460) L 05/16/18 03:45 Iron Saturation 6.53 (12.00-45.00) L 05/16/18 03:45 Ferritin 79.5 ng/mL (10.0-291.0) 05/16/18 03:45 Total Bilirubin 0.4 mg/dL (0.2-1.3) 05/11/18 15:00 AST 16 U/L (14-36) 05/11/18 15:00 ALT 30 U/L (9-52) 05/11/18 15:00 Alkaline Phosphatase 128 U/L (38-126) H 05/11/18 15:00 Total Creatine Kinase 40 U/L (30-135) 05/11/18 15:00 CK-MB (CK-2) 1.2 ng/mL (0.0-2.4) 05/11/18 15:00 CK-MB (CK-2) Rel Index 3.0 05/11/18 15:00 Troponin I 0.047 ng/mL (0.000-0.034) H* 05/12/18 03:06 NT-Pro-B Natriuret Pep 5490 pg/mL 05/11/18 15:00 Total Protein 4.9 g/dL (6.3-8.2) L 05/11/18 15:00 Albumin 2.6 g/dL (3.5-5.0) L 05/11/18 15:00 Triglycerides 123 mg/dL (<150) 05/19/18 05:15 TSH 3.890 mIU/L (0.465-4.680) 05/18/18 04:10 Cortisol 16 ug/dL 05/27/18 04:20 Urine Color Yellow 05/24/18 12:19 Urine Appearance Turbid (Clear) H 05/24/18 12:19 Urine pH 5.5 (5.0-8.0) 05/24/18 12:19 Ur Specific [employer] 1.013 (1.001-1.035) 05/24/18 12:19 Urine Protein 1+ (Negative) H 05/24/18 12:19 Urine Glucose (UA) Negative (Negative) 05/24/18 12:19 Urine Ketones Negative (Negative) 05/24/18 12:19 Urine Blood Large (Negative) H 05/24/18 12:19 Urine Nitrite Negative (Negative) 05/24/18 12:19 Urine Bilirubin Negative (Negative) 05/24/18 12:19 Urine Urobilinogen <2.0 mg/dL (<2.0) 05/24/18 12:19 Ur Leukocyte Esterase Large (Negative) H 05/24/18 12:19 Urine RBC 173 /hpf (0-5) H 05/24/18 12:19 Urine WBC 569 /hpf (0-5) H 05/24/18 12:19 Urine WBC Clumps Many /hpf (None) H 05/24/18 12:19 Ur Squamous Epith Cells <1 /hpf (0-4) 05/11/18 23:45 Amorphous Sediment Rare /hpf (None) H 05/11/18 23:45 Urine Bacteria Many /hpf (None) H 05/24/18 12:19 Hyaline Casts 49 /lpf (0-2) H 05/11/18 23:45 Urine Mucus Rare /hpf (None) H 05/11/18 23:45 Urine Osmolality 177 mosm/kg (50-1400) 05/25/18 22:45 Ur Random Sodium 11 mmol/L 05/25/18 22:45 Random Vancomycin 24.3 ug/mL 05/23/18 04:26 C. difficile (EIA) Intrp Negative (Negative) 05/12/18 08:53 Urine Legionella Ag Not detected (Not detected) 05/25/18 14:10 Virus Source See Below 05/14/18 10:05 Viral Test See Below 05/14/18 10:05 Virus Analysis Interp See Below 05/14/18 10:05 Blood Type A Positive 05/24/18 09:15 Blood Type Confirm A Positive 05/24/18 05:05 Blood Type Recheck CABO Indicated 05/24/18 09:15 Antibody Screen NEGATIVE 05/24/18 09:15 Crossmatch See Detail 05/24/18 09:15 Spec Expiration Date 05/27/2018231405/24/18 09:15 Microbiology 05/24/18 13:00 Blood Blood Culture - Preliminary No Growth after 96 hours 05/24/18 12:30 Blood Blood Culture - Preliminary No Growth after 96 hours 05/14/18 10:05 Bronchial Washings - Left Acid Fast Bacilli Smear - Final 05/14/18 10:05 Bronchial Washings - Left Acid Fast Bacilli Culture - Preliminary 05/24/18 16:00 Sputum Gram Stain - Final 05/24/18 16:00 Sputum Sputum Culture - Final Stenotrophomonas maltophilia 05/24/18 12:19 Urine,Voided Urine Culture - Final Charmaine albicans 05/14/18 10:05 Bronchial Washings - Left Fungal Culture - Preliminary 05/22/18 05:45 Sputum Gram Stain - Final 05/22/18 05:45 Sputum Sputum Culture - Final Stenotrophomonas maltophilia 05/11/18 15:00 Blood Blood Culture - Final No Growth after 144 hours 05/14/18 10:05 Bronchial Washings - Left Gram Stain - Final 05/14/18 10:05 Bronchial Washings - Left Bronchial Washings Culture - Final Methicillin resist S. aureus 05/11/18 23:45 Urine,Catheterized Urine Culture - Final Assessment and Plan (1) Acute respiratory failure Status: Acute Priority: High Code(s): J96.00 - ACUTE RESPIRATORY FAILURE, UNSP W HYPOXIA OR HYPERCAPNIA SNOMED Code(s): 26450427 (2) COPD (chronic obstructive pulmonary disease) Status: Acute Priority: High Code(s): J44.9 - CHRONIC OBSTRUCTIVE PULMONARY DISEASE, UNSPECIFIED SNOMED Code(s): 71050334 (3) Pressure ulcer of buttock Narrative/Plan: 67-year-old presents to Hospital with respiratory failure she is now extubated and is showing improvement. The Mepilex dressing is applied to the coccyx wound. The patient's bronchoscopy reveals evidence of staph and antimicrobial therapy is being utilized with Azactam and vancomycin pending further data. She does seem to be improving but appears she will need to be on BiPAP overnight which is unusual for her at home. She does appear to have a poor prognosis. 05/17/2018 patient is extubated but is requiring ongoing BiPAP therapy due to her ongoing respiratory difficulties, she is only on 40% FiO2 but desaturates rapidly when the positive pressure ventilation is removed. Pulmonary critical care is working with the family as to overall plan. Because of the current status she is not able to eat pretty because she is so short of breath and secondly did not pass a bedside swallow test. Her prognosis is poor. MRSA pneumonia and has been found continue vancomycin at this time, cefepime will be discontinued in the morning if no further positive cultures are found. 05/18/2018 patient remains extubated but BiPAP dependent but is on 24% FiO2. Patient is comfortable and there are plans for TPN but no plans for tracheostomy or PEG tube. We'll discontinue cefepime since only MRSA has been grown from her sputum with MRSA pneumonia as the etiology of her current sepsis and respiratory failure. 05/21/2018 patient remains extubated and comfortable on the BiPAP. Did have a 5 hour break today. Her renal failure is improved. She has evidence of MRSA pneumonia. And with her improvement with complete her course of vancomycin therapy with closely monitoring her troughs and monitoring for any further renal toxicity. She the norepinephrine as well as agents that make Zyvox not compatible. 05/24/2018as noted in the sputum culture now has stenotrophomonas maltophilia which is fortunate susceptible to Bactrim. The prior MRSA isolate from the sputum was also Bactrim susceptible and escalate antimicrobial therapy is changed to intravenous trimethoprim sulfamethoxazole and dose was communicated to pharmacy. Renal function will be monitored. As noted family meeting is trying to be arranged so that most appropriate plans will be developed regarding her overall discharge course. 05/27/2018 patient is status post tracheostomy tube placement and PEG tube placement. She is stable and showing some improvement. Chest x-ray today is improved and seems to be having response to the trimethoprim sulfamethoxazole therapy for the treatment of her underlying stenotrophomonas pneumonia as well as MRSA. We'll plan a total of 14 days of Bactrim for this complex gram- negative pneumonia. 05/28/2018 reveals the patient to be comfortable. She is status post tracheostomy and PEG tube placement. She is doing well. We'll plan to weeks of Bactrim liquid per her PEG tube for the finished treatment of her pneumonia did include Stenotrophomonas maltophilia and MRSA. The orders are transmitted to the salon coordinator. Status: Acute Code(s): L89.309 - PRESSURE ULCER OF UNSPECIFIED BUTTOCK, UNSPECIFIED STAGE SNOMED Code(s): 839773298
--- NOTE | 2018-05-31 15:48 | CDI ---
Documentation Clarification Form Date: 05/31/2018 3:17:31 PM From: LINH Rolon; Mer Sigala [employer] Phone: If you have a question about this query, please contact Mer Sigala [employer] at [phone] between 8am and 5pm. Admit Date: 05/11/2018 4:55:00 PM Patient Name: Shirley Ayers Visit Number: [id number] Discharge Date: 05/28/2018 ATTENTION: The Clinical Documentation Specialists (CDI) and [facility] Coding Staff appreciate your assistance in clarifying documentation. Please respond to the clarification below the line at the bottom and electronically sign. The CDI & [facility] Coding staff will review the response and follow-up if needed. Please note: Queries are made part of the Legal Health Record. If you have any questions, please contact the author of this message via ITS. Krissy Ayoub, DO A buttock pressure ulcer is documented in progress notes as a stage II and also stage III. History and physical states the patient has chronic decubitus ulcers. History/Risk Factors: Morbid obesity, COPD, CKD III, CHF. Clinical Indicators: Wheelchair bound, but bed bound for past 5 days. Location: Documented as median buttock in wound assessment Wound description: Excoriation, pressure injury Treatment: Phytoplez Z-Guard paste. In your professional opinion, please clarify median buttock ulcer? Stage II with progression to stage III Stage III POA Stage II with no progression Other condition, please specify Unable to determine ____Pressure ulcer is stage II, POA without progression MTDD
--- NOTE | 2018-06-02 18:08 | CDI ---
Documentation Clarification Form Date: 06/02/2018 3:17:31 PM From: LINH Rolon; Mer [employer]ala [employer] Phone: If you have a question about this query, please contact Mer Sigala [employer] at [phone] between 8am and 5pm. Admit Date: 05/11/2018 4:55:00 PM Patient Name: Shirley Ayers Visit Number: [id number] Discharge Date: 05/28/2018 ATTENTION: The Clinical Documentation Specialists (CDI) and [facility] Coding Staff appreciate your assistance in clarifying documentation. Please respond to the clarification below the line at the bottom and electronically sign. The CDI & [facility] Coding staff will review the response and follow-up if needed. Please note: Queries are made part of the Legal Health Record. If you have any questions, please contact the author of this message via ITS. Dr. VALENZUELA, A median buttock pressure ulcer is documented in progress notes as a stage II and also stage III. History and physical states the patient has chronic decubitus ulcers. Conflicting documentation re: stage. History/Risk Factors: Morbid obesity, COPD, CKD III, CHF. Clinical Indicators: Wheelchair bound, but bed bound for past 5 days. Location: Documented as median buttock in wound assessment Wound description: Excoriation, pressure injury Treatment: Phytoplez Z-Guard paste. In your professional opinion, please clarify median buttock ulcer? Stage II with progression to stage III Stage III POA Stage II with no progression Other condition, please specify Unable to determine MTDD
== END 2018-05-28 18:19 | DRG 3 ==
LOC: EC 14:38 → 6ICU 16:55
PROVIDERS: ADMIT Internal Medicine; ATTEND Internal Medicine
PROC: 5A1955Z Respiratory Ventilation, Greater than 96 Consecutive Hours (ICD-10-PCS; principal; 2018-05-11)
PROC: 0BH18EZ Insertion of Endotracheal Airway into Trachea, Via Natural or Artificial Opening Endoscopic (ICD-10-PCS; principal; 2018-05-11)
PROC: 02H633Z Insertion of Infusion Device into Right Atrium, Percutaneous Approach (ICD-10-PCS; 2018-05-12)
PROC: 03HY32Z Insertion of Monitoring Device into Upper Artery, Percutaneous Approach (ICD-10-PCS; 2018-05-12)
PROC: 4A133B1 Monitoring of Arterial Pressure, Peripheral, Percutaneous Approach (ICD-10-PCS; 2018-05-12)
PROC: 4A133J1 Monitoring of Arterial Pulse, Peripheral, Percutaneous Approach (ICD-10-PCS; 2018-05-12)
PROC: 04HY32Z Insertion of Monitoring Device into Lower Artery, Percutaneous Approach (ICD-10-PCS; 2018-05-12)
PROC: 0B938ZZ Drainage of Right Main Bronchus, Via Natural or Artificial Opening Endoscopic (ICD-10-PCS; 2018-05-14)
PROC: 0B9J8ZZ Drainage of Left Lower Lung Lobe, Via Natural or Artificial Opening Endoscopic (ICD-10-PCS; 2018-05-14)
PROC: 0B978ZZ Drainage of Left Main Bronchus, Via Natural or Artificial Opening Endoscopic (ICD-10-PCS; 2018-05-14)
PROC: 0B948ZZ Drainage of Right Upper Lobe Bronchus, Via Natural or Artificial Opening Endoscopic (ICD-10-PCS; 2018-05-14)
PROC: 0B988ZZ Drainage of Left Upper Lobe Bronchus, Via Natural or Artificial Opening Endoscopic (ICD-10-PCS; 2018-05-14)
PROC: 0B968ZZ Drainage of Right Lower Lobe Bronchus, Via Natural or Artificial Opening Endoscopic (ICD-10-PCS; 2018-05-14)
PROC: 5A1955Z Respiratory Ventilation, Greater than 96 Consecutive Hours (ICD-10-PCS; 2018-05-22)
PROC: 0BH18EZ Insertion of Endotracheal Airway into Trachea, Via Natural or Artificial Opening Endoscopic (ICD-10-PCS; 2018-05-22)
PROC: 0DH63UZ Insertion of Feeding Device into Stomach, Percutaneous Approach (ICD-10-PCS; 2018-05-26)
PROC: 0B110F4 Bypass Trachea to Cutaneous with Tracheostomy Device, Open Approach (ICD-10-PCS; 2018-05-26)
PROC: 02HV33Z Insertion of Infusion Device into Superior Vena Cava, Percutaneous Approach (ICD-10-PCS; 2018-05-27)
DX: A41.9 Sepsis, unspecified organism (principal); I50.43 Acute on chronic combined systolic (congestive) and diastolic (congestive) heart failure; J15.212 Pneumonia due to Methicillin resistant Staphylococcus aureus; J96.21 Acute and chronic respiratory failure with hypoxia; J96.22 Acute and chronic respiratory failure with hypercapnia; N17.0 Acute kidney failure with tubular necrosis; R65.21 Severe sepsis with septic shock; E66.2 Morbid (severe) obesity with alveolar hypoventilation; Z68.42 Body mass index [BMI] 45.0-49.9, adult; E87.1 Hypo-osmolality and hyponatremia; E87.4 Mixed disorder of acid-base balance; I13.0 Hypertensive heart and chronic kidney disease with heart failure and stage 1 through stage 4 chronic kidney disease, or unspecified chronic kidney disease; I42.9 Cardiomyopathy, unspecified; J44.0 Chronic obstructive pulmonary disease with (acute) lower respiratory infection; J44.1 Chronic obstructive pulmonary disease with (acute) exacerbation; J98.11 Atelectasis; L03.116 Cellulitis of left lower limb; L97.909 Non-pressure chronic ulcer of unspecified part of unspecified lower leg with unspecified severity; N18.4 Chronic kidney disease, stage 4 (severe); N39.0 Urinary tract infection, site not specified; Z99.11 Dependence on respirator [ventilator] status; D50.9 Iron deficiency anemia, unspecified; D63.8 Anemia in other chronic diseases classified elsewhere; E11.22 Type 2 diabetes mellitus with diabetic chronic kidney disease; E11.622 Type 2 diabetes mellitus with other skin ulcer; E11.649 Type 2 diabetes mellitus with hypoglycemia without coma; E83.39 Other disorders of phosphorus metabolism; E87.6 Hypokalemia; E87.8 Other disorders of electrolyte and fluid balance, not elsewhere classified; F32.9 Major depressive disorder, single episode, unspecified; G47.33 Obstructive sleep apnea (adult) (pediatric); G89.29 Other chronic pain; I08.1 Rheumatic disorders of both mitral and tricuspid valves; I25.10 Atherosclerotic heart disease of native coronary artery without angina pectoris; I27.29 Other secondary pulmonary hypertension; I27.81 Cor pulmonale (chronic); I48.2 Chronic atrial fibrillation; K21.9 Gastro-esophageal reflux disease without esophagitis; M19.90 Unspecified osteoarthritis, unspecified site; M54.30 Sciatica, unspecified side; T50.2X5A Adverse effect of carbonic-anhydrase inhibitors, benzothiadiazides and other diuretics, initial encounter; Z74.01 Bed confinement status; Z79.01 Long term (current) use of anticoagulants; Z79.2 Long term (current) use of antibiotics; Z79.82 Long term (current) use of aspirin; Z82.49 Family history of ischemic heart disease and other diseases of the circulatory system; Z86.14 Personal history of Methicillin resistant Staphylococcus aureus infection; Z87.01 Personal history of pneumonia (recurrent); Z87.891 Personal history of nicotine dependence; Z90.49 Acquired absence of other specified parts of digestive tract; Z99.3 Dependence on wheelchair; Z99.81 Dependence on supplemental oxygen; Z99.89 Dependence on other enabling machines and devices; Z79.899 Other long term (current) drug therapy; Z79.51 Long term (current) use of inhaled steroids; Z79.84 Long term (current) use of oral hypoglycemic drugs; Z88.6 Allergy status to analgesic agent; Z88.5 Allergy status to narcotic agent; Z88.0 Allergy status to penicillin; Z88.8 Allergy status to other drugs, medicaments and biological substances; Z91.018 Allergy to other foods; L89.222 Pressure ulcer of left hip, stage 2; L89.322 Pressure ulcer of left buttock, stage 2; L89.312 Pressure ulcer of right buttock, stage 2; L89.212 Pressure ulcer of right hip, stage 2; L89.302 Pressure ulcer of unspecified buttock, stage 2
CPT/HCPCS: 31500; 31624; 31645; 36415; 36569; 36600; 43246; 51702; 71045; 76937; 80048; 80053; 80202; 81001; 82330; 82533; 82550; 82553; 82728; 82805; 83540; 83550; 83605; 83735; 83880; 83930; 83935; 84100; 84132; 84295; 84300; 84443; 84478; 84484; 85025; 85027; 85379; 85610; 85730; 86850; 86900; 86901; 86920; 87040; 87070; 87077; 87086; 87102; 87116; 87186; 87205; 87206; 87252; 87324; 87449; 87496; 87498; 87502; 87529; 87634; 87798; 93005; 93306; 94002; 94003; 94640; 94660; 96365; 96366; 96367; 96368; 96375; 96376; 99152; 99291